=== PATIENT | female | born 1960 | race Caucasian/White ===

== ENCOUNTER 2016-10-12 14:57 | Emergency (ER) | payer OTHER ==
[2016-10-12 15:07] VITALS: TEMP 98.1; BMI 32.1
--- NOTE | 2016-10-12 15:40 | PDOC ---
History of Present Illness - General Chief Complaint: Chest Pain Stated Complaint: LIGHTHEADED, HIGH GLUCOSE Time Seen by Provider: 10/12/16 15:24 History Source: Patient - History of Present Illness Timing/Duration: other (yesterday) Associated Symptoms: denies: fever/chills, nausea/vomiting, shortness of breath , weakness Past History - Past Medical History Allergies/Adverse Reactions: Allergies Allergy/AdvReac Type Severity Reaction Status Date / Time No Known Allergies Allergy Verified 10/12/16 15:07 Home Medications: Ambulatory Orders Albuterol Sulfate Inhaler - [Ventolin HFA Inhaler -] 1 - 2 inh PO Q4H PRN #1 inhaler 04/21/15 Insulin Degludec [Tresiba Flextouch U-100] 24 unit SQ HS 02/17/16 Inhaler, Assist Devices [Space Chamber Plus] 1 each ASDIR #1 spacer 06/15/16 Peak Flow Meter [Assess] 1 each ASDIR #1 each 06/15/16 Aspirin [Aspirin EC] 81 mg PO DAILY 07/06/16 Budesonide/Formeterol Fumarate [SYMBICORT 160/4.5mcg -] 1 puff IH BID 07/06/16 Ezetimibe [Zetia -] 10 mg PO DAILY 07/06/16 Fenofibric Acid [Fibricor] 105 mg PO DAILY 07/06/16 Gabapentin [Neurontin] 300 mg PO BID 07/06/16 Icosapent Ethyl [Vascepa] 2 cap PO BID 07/06/16 Insulin Lispro [Humalog Kwikpen] 8 unit SQ TID 07/06/16 Lipase/Protease/Amylase [Crejayant Dr 36,000 Units Capsule] 2 each PO TID 07/06/16 Magnesium 200 mg PO DAILY PRN 07/06/16 Omeprazole/Sodium Bicarbonate [Omeprazole-Bicarb 40-1,100 Cap] 1 each PO DAILY 07/06/16 Tizanidine HCl 4 mg PO TID PRN 07/06/16 Pregabalin [Lyrica] 1 cap PO DAILY PRN 08/03/16 Nystatin Powder [Nystop Powder -] 1 applic TP BID #30 g 09/05/16 Dolutegravir Sodium [Tivicay] 50 mg PO HS #30 tablet 09/13/16 Emtricitabine/Tenofov Alafenam [Descovy 200-25 mg Tablet] 1 each PO HS #30 tablet 09/13/16 Montelukast Na [Singulair -] 10 mg PO HS #30 tablet 09/13/16 Pravastatin Sodium [Pravachol -] 40 mg PO HS #30 tablet 09/13/16 Lisinopril 5 mg PO HS #30 tablet 09/18/16 Clonazepam [Klonopin] 1 mg PO DAILY #30 tablet MDD 1 10/12/16 Escitalopram Oxalate [Lexapro -] 20 mg PO HS #30 tablet 10/12/16 Mirtazapine [Remeron -] 30 mg PO HS #30 tablet 10/12/16 Zolpidem Tartrate [Ambien] 5 mg PO HS PRN #15 tablet MDD 1 10/12/16 Anemia: No Asthma: Yes Cancer: No Cardiac Disorders: Yes (2 stents) CVA: No COPD: Yes CHF: No Dementia: No Diabetes: Yes GI Disorders: Yes (h. pylori; GERD) Disorders: No HTN: No Hypercholesterolemia: Yes HIV: Yes Liver Disease: No Psychiatric Problems: Yes (ANXIETY.) Seizures: No Thyroid Disease: No - Surgical History Abdominal Surgery: No Appendectomy: No Cardiac Surgery: Yes (PTCA 04/04/15 WITH ONE STENT TO LAD-COMPLETED PLAVIX THERAPY 04/01/16 2 PAVAN) Cholecystectomy: Yes Lung Surgery: No Neurologic Surgery: No Orthopedic Surgery: Yes (Rt Ankle, Rt Wrist, Rt Elbow; left knee 09/14) - Psycho/Social/Smoking Cessation Hx Anxiety: No Suicidal Ideation: No Smoking History: Current every day smoker Have you smoked in the past 12 months: Yes Number of Cigarettes Smoked Daily: 2 If you are a former smoker, when did you quit?: 2 months Cigars Per Day: 0 Information on smoking cessation initiated: No 'Breaking Loose' booklet given: 03/29/15 Hx Alcohol Use: No Drug/Substance Use Hx: No Substance Use Type: None Hx Substance Use Treatment: No Review of Systems - Review of Systems Constitutional: No: Chills, Fever Respiratory: No: Shortness of Breath Cardiac (ROS): Yes: Chest Pain, Lightheadedness ABD/GI: No: Constipated, Diarrhea, Nausea, Vomiting, Abdominal cramping : No: Dysuria Neurological: Yes: Dizziness. No: Headache *Physical Exam - Vital Signs Last Vital Signs Temp Pulse Resp BP Pulse Ox 98.1 F 107 H 20 148/87 99 10/12/16 15:02 10/12/16 15:02 10/12/16 15:02 10/12/16 15:02 10/12/16 15:02 - Physical Exam General Appearance: Yes: Appropriately Dressed. No: Apparent Distress HEENT: positive: Normal Voice Neck: positive: Supple Respiratory/Chest: positive: Lungs Clear, Normal Breath Sounds. negative: Respiratory Distress Cardiovascular: positive: Regular Rate, S1, S2 Gastrointestinal/Abdominal: positive: Soft. negative: Tender Extremity: positive: Normal Inspection Integumentary: positive: Dry, Warm Neurologic: positive: Fully Oriented, Alert, Normal Mood/Affect Heart Score/ECG Review - ECG Intrepretation Comment:: 10/12/16 17:51 Twelve-lead EKG was performed and reviewed by me. There is normal sinus rhythm with a normal rate. The axis is normal. The intervals are normal. There are no ST or T wave abnormalities. Impression: Normal twelve-lead EKG ED Treatment Course - LABORATORY CBC & Chemistry Diagram: 10/12/16 15:36 10/12/16 15:36 Medical Decision Making - Medical Decision Making 10/12/16 15:32 56 yo F, history of insulin-dependent diabetes, hypertension, hypercholesterolemia, CAD with multiple stents, sent in by her PMD to be treated for hyperglycemia. Patient states she had a routine appointment with her doctor this morning and was complaining of chest pain with dizziness, visual changes and polydipsia since yesterday. States she had vague chest pain yesterday that lasted for several seconds and resolved. Has not reoccurred and different from CP prior to her stents. States sugar in PMD's office today was in the 400s and sent to the ED for further management. Patient reports only dizziness at this time. States BS usually in the 200s at home. Only takes insulin for her DM and reports compliance See exam Hyperglycemia -IVF -insulin -labs r/o complications -reassess Atypical CP Resolved yesterday Unlike CP prior to stents No CP/sob currently -ekg and trop x 1 10/12/16 18:31 10/12/16 18:32 Labs unremarkable and final FS 195 s/p meds/IVF. Pt reports feeling better at this time, declined additional IVF and requesting discharge. Will continue to f/ u with her PMD *DC/Admit/Observation/Transfer Diagnosis at time of Disposition: Hyperglycemia, Atypical chest pain - Discharge Dispostion Disposition: HOME Condition at time of disposition: Improved - Patient Instructions Printed Discharge Instructions: DI for Atypical Chest Pain, DI for Hyperglycemia -- Adult Additional Instructions: Please continue taking your antibiotics and follow up with your PMD
[2016-10-12] MEDS: SODIUM CHLORIDE 1,000 ML IV STA ×2 (15:48→18:00)
[2016-10-12] MEDS: INSULIN REGULAR HUMAN 100 UNITS/ML *VIAL SQ ONE (15:55)
--- NOTE | 2016-10-12 15:59 | EKG ---
Test Reason : Blood Pressure : / mmHG Vent. Rate : 094 BPM Atrial Rate : 094 BPM P-R Int : 160 ms QRS Dur : 090 ms QT Int : 376 ms P-R-T Axes : 055 072 052 degrees QTc Int : 470 ms NORMAL SINUS RHYTHM NORMAL ECG WHEN COMPARED WITH ECG OF 20-MAY-2016 19:49, NO SIGNIFICANT CHANGE WAS FOUND Confirmed by YEYO GARZA MD ([id number]) on 10/12/2016 3:59:14 PM Referred By: Confirmed By:YEYO GARZA MD
[2016-10-12 16:13] LABS: BASOPHIL 0.1 % (0-2.0); EOSINOPHIL 0.7 % (0-4.5); MCH 26.7 pg (25.7-33.7); MCHC 32.6 g/dl (32.0-36.0); MEAN CELL VOLUME 81.8 fl (80-96); MEAN PLT VOLUME 9.2 fl (7.5-11.1); NEUTROPHILS 61.5 % (42.8-82.8); PLATELET COUNT 138 K/MM3 (134-434); RDW 16.3 % (11.6-15.6); WHITE BLOOD COUNT 7.6 K/mm3 (4.0-10.0)
[2016-10-12 16:45] LABS: ALBUMIN 3.2 g/dl (3.4-5.0); BILIRUBIN,TOTAL 0.3 mg/dL (0.2-1.0); CALCIUM 8.6 mg/dL (8.5-10.1); COCKROFT - GAULT 65.2375; CREATININE 1.2 mg/dL (0.55-1.02)
--- NOTE | 2016-10-12 17:37 | PDOC ---
[id number] 148/87 99 10/12/16 15:02 10/12/16 15:02 10/12/16 15:02 10/12/16 15:02 10/12/16 15:02 - Physical Exam Comments: 10/12/16 17:37 The patient was examined by [JAX Allen] under my direct supervision. I personally evaluated the patient. I concur with the above findings and the plan of care. ED Treatment Course - LABORATORY CBC & Chemistry Diagram: 10/12/16 15:36 10/12/16 15:36 - ADDITIONAL ORDERS Additional order review: Laboratory Results 10/12/16 15:36 Sodium 133 L Potassium 3.9 Chloride 97 L Carbon Dioxide 24 Anion Gap 12 BUN 13 Creatinine 1.2 H Creat Clearance w eGFR 46.82 Random Glucose 504 H* D Calcium 8.6 Total Bilirubin 0.3 D AST 13 L ALT 22 Alkaline Phosphatase 162 H Total Protein 7.0 Albumin 3.2 L 10/12/16 15:36 RBC 4.64 MCV 81.8 MCHC 32.6 RDW 16.3 H MPV 9.2 Neutrophils % 61.5 Lymphocytes % 31.6 Monocytes % 6.1 Eosinophils % 0.7 Basophils % 0.1 - Medications Given in the ED: ED Medications Discontinued Medications Generic Name Dose Route Start Last Admin Trade Name Freq PRN Reason Stop Dose Admin Sodium Chloride 1,000 mls @ 1,000 mls/hr 10/12/16 15:32 10/12/16 15:48 Normal Saline - IV 10/12/16 16:31 1,000 mls/hr ASDIR STA Administration Insulin Human Regular 10 units 10/12/16 15:48 10/12/16 15:55 Novolin R Vial *For Ivpush Or Iv Drip Only* SQ 10/12/16 15:49 10 units ONCE ONE Administration *DC/Admit/Observation/Transfer Diagnosis at time of Disposition: Hyperglycemia, Atypical chest pain - Discharge Dispostion Disposition: HOME Condition at time of disposition: Improved - Referrals Referrals: Edward Ba MD [Primary Care Provider] - - Patient Instructions Printed Discharge Instructions: DI for Atypical Chest Pain, DI for Hyperglycemia -- Adult Additional Instructions: Please continue taking your antibiotics and follow up with your PMD
[2016-10-12 18:16] LABS: URINE APPEARANCE CLEAR; URINE BILIRUBIN NEGATIVE (NEGATIVE); URINE BLOOD NEGATIVE (NEGATIVE); URINE COLOR STRAW; URINE GLUCOSE (UA) 3+ (NEGATIVE); URINE KETONE NEGATIVE (NEGATIVE); URINE LEUK ESTERASE NEGATIVE (NEGATIVE); URINE NITRITE NEGATIVE (NEGATIVE); URINE PROTEIN NEGATIVE (NEGATIVE); URINE UROBILINOGEN NEGATIVE E.U./dl (0.2-1.0)
[2016-10-12 18:18] LABS: TROPONIN I < 0.02 ng/ml (0.00-0.05)
[2016-10-12 18:38] VITALS: BP 145/80; PULSE 80
== END 2016-10-12 18:38 | disposition home or self-care (01) ==
LOC: JER 14:57
PROC: 3E0337Z Introduction of Electrolytic and Water Balance Substance into Peripheral Vein, Percutaneous Approach (ICD-10-PCS; principal; 2016-10-12)
PROC: 3E013VG Introduction of Insulin into Subcutaneous Tissue, Percutaneous Approach (ICD-10-PCS; 2016-10-12)
DX: E11.65 Type 2 diabetes mellitus with hyperglycemia (principal); Z79.4 Long term (current) use of insulin; R07.89 Other chest pain; I25.10 Atherosclerotic heart disease of native coronary artery without angina pectoris; I10 Essential (primary) hypertension; Z95.5 Presence of coronary angioplasty implant and graft
CPT/HCPCS: 36415; 71010-TC; 80053; 81003; 82009; 82550; 84484; 85025; 93005; 93010; 99283-25

== ENCOUNTER 2016-11-09 02:59 | Observation (INO) | payer OTHER ==
--- NOTE | 2016-11-09 03:03 | PDOC ---
History of Present Illness - General Stated Complaint: CHEST PAIN/ABDOMINAL SPASM Time Seen by Provider: 11/09/16 03:01 History Source: Patient Exam Limitations: No Limitations - History of Present Illness Initial Comments: 11/09/16 03:24 56-year-old female with a history of IN: 2 stents in April 2016, IDDM, hyperlipidemia, hypertension, HIV positive, renal colic biba complaining of midstrnal and mid abdominal pain described as 10/10 dull intermittent discomfort discomfort radiating up her right lateral rib to the right lower back with nausea/vomiting x6 h. the pain is exacerbated on movement and there are no alleviating factors. Patient denies any headache, dizziness, lightheadedness, fever, chills, diarrhea, jaw pain, neck pains, urinary symptoms , extremity numbness or tingling sensation. Presenting Symptoms: Abdominal Pain (RLQ), Back Pain (Right sided lower back) Past History - Travel Traveled outside of the country in the last 30 days: No Close contact w/someone who was outside of country & ill: No - Past Medical History Allergies/Adverse Reactions: Allergies Allergy/AdvReac Type Severity Reaction Status Date / Time No Known Allergies Allergy Verified 11/09/16 03:05 Home Medications: Ambulatory Orders Albuterol Sulfate Inhaler - [Ventolin HFA Inhaler -] 1 - 2 inh PO Q4H PRN #1 inhaler 04/21/15 Insulin Degludec [Tresiba Flextouch U-100] 24 unit SQ HS 02/17/16 Inhaler, Assist Devices [Space Chamber Plus] 1 each ASDIR #1 spacer 06/15/16 Peak Flow Meter [Assess] 1 each ASDIR #1 each 06/15/16 Aspirin [Aspirin EC] 81 mg PO DAILY 07/06/16 Budesonide/Formeterol Fumarate [SYMBICORT 160/4.5mcg -] 1 puff IH BID 07/06/16 Ezetimibe [Zetia -] 10 mg PO DAILY 07/06/16 Fenofibric Acid [Fibricor] 105 mg PO DAILY 07/06/16 Gabapentin [Neurontin] 300 mg PO BID 07/06/16 Icosapent Ethyl [Vascepa] 2 cap PO BID 07/06/16 Insulin Lispro [Humalog Kwikpen] 8 unit SQ TID 07/06/16 Lipase/Protease/Amylase [Creon Dr 36,000 Units Capsule] 2 each PO TID 07/06/16 Magnesium 200 mg PO DAILY PRN 07/06/16 Omeprazole/Sodium Bicarbonate [Omeprazole-Bicarb 40-1,100 Cap] 1 each PO DAILY 07/06/16 Tizanidine HCl 4 mg PO TID PRN 07/06/16 Pregabalin [Lyrica] 1 cap PO DAILY PRN 08/03/16 Nystatin Powder [Nystop Powder -] 1 applic TP BID #30 g 09/05/16 Emtricitabine/Tenofov Alafenam [Descovy 200-25 mg Tablet] 1 each PO HS #30 tablet 09/13/16 Montelukast Na [Singulair -] 10 mg PO HS #30 tablet 09/13/16 Pravastatin Sodium [Pravachol -] 40 mg PO HS #30 tablet 09/13/16 Lisinopril 5 mg PO HS #30 tablet 09/18/16 Clonazepam [Klonopin] 1 mg PO DAILY #30 tablet MDD 1 10/12/16 Escitalopram Oxalate [Lexapro -] 20 mg PO HS #30 tablet 10/12/16 Mirtazapine [Remeron -] 30 mg PO HS #30 tablet 10/12/16 Zolpidem Tartrate [Ambien] 5 mg PO HS PRN #15 tablet MDD 1 10/12/16 Anemia: No Asthma: Yes Cancer: No Cardiac Disorders: Yes (2 stents) CVA: No COPD: Yes CHF: No Dementia: No Diabetes: Yes GI Disorders: Yes (h. pylori; GERD) Disorders: No HTN: No Hypercholesterolemia: Yes HIV: Yes Liver Disease: No Psychiatric Problems: Yes (ANXIETY.) Seizures: No Thyroid Disease: No - Surgical History Abdominal Surgery: No Appendectomy: No Cardiac Surgery: Yes (PTCA 04/04/15 WITH ONE STENT TO LAD-COMPLETED PLAVIX THERAPY 04/01/16 2 PAVAN) Cholecystectomy: Yes Lung Surgery: No Neurologic Surgery: No Orthopedic Surgery: Yes (Rt Ankle, Rt Wrist, Rt Elbow; left knee 09/14) - Psycho/Social/Smoking Cessation Hx Anxiety: No Suicidal Ideation: No Smoking History: Current every day smoker Have you smoked in the past 12 months: Yes Number of Cigarettes Smoked Daily: 2 If you are a former smoker, when did you quit?: 2 months Cigars Per Day: 0 'Breaking Loose' booklet given: 03/29/15 Hx Alcohol Use: No Drug/Substance Use Hx: No Substance Use Type: None Hx Substance Use Treatment: No Cardiac Specific PMH - Complaint Specific PMHX Pacemaker: No Review of Systems - Review of Systems Able to Perform ROS?: Yes Comments:: 11/09/16 03:19 CONSTITUTIONAL: Absent: fever, chills, diaphoresis, generalized weakness, malaise, loss of appetite HEENT: Absent: rhinorrhea, nasal congestion, throat pain, throat swelling, difficulty swallowing, mouth swelling, ear pain, eye pain, visual Changes CARDIOVASCULAR: +CP Absent: loss of consciousness, palpitations, irregular heart rate, peripheral edema RESPIRATORY: Absent: cough, shortness of breath, dyspnea with exertion, orthopnea, wheezing, stridor, hemoptysis GASTROINTESTINAL: +Lower abd pain Absent: abdominal distension, nausea, vomiting, diarrhea, constipation, melena , hematochezia GENITOURINARY: Absent: dysuria, frequency, urgency, hesitancy, hematuria, flank pain, genital pain MUSCULOSKELETAL: Absent: myalgia, arthralgia, joint swelling SKIN: Absent: rash, itching, pallor HEMATOLOGIC/IMMUNOLOGIC: Absent: easy bleeding, easy bruising, lymphadenopathy, frequent infections ENDOCRINE: Absent: unexplained weight gain, unexplained weight loss, heat intolerance, cold intolerance NEUROLOGIC: Absent: headache, focal weakness or paresthesias, dizziness, unsteady gait, seizure, mental status changes, bladder or bowel incontinence PSYCHIATRIC: Absent: anxiety, depression, suicidal or homicidal ideation, hallucinations. 11/09/16 04:52 Is the patient limited Z[place]ian proficient: No *Physical Exam - Vital Signs Last Vital Signs Temp Pulse Resp BP Pulse Ox 97.5 F L 129 H 16 122/89 98 11/09/16 03:05 11/09/16 03:05 11/09/16 03:05 11/09/16 03:05 11/09/16 03:05 - Physical Exam Comments: 11/09/16 03:20 GENERAL: Well developed, well nourished. Awake and alert. No acute distress. HEENT: Normocephalic, atraumatic. PERRLA, EOMI. No conjunctival pallor. Sclera are non- icteric. Moist mucous membranes. Oropharynx is clear. NECK: Supple. Full ROM. No JVD. Carotid pulses 2+ and symmetric, without bruits. No thyromegaly. No lymphadenopathy. CARDIOVASCULAR: Regular rate and rhythm. No murmurs, rubs, or gallops. Distal pulses are 2+ and symmetric. PULMONARY: No evidence of respiratory distress. Lungs clear to auscultation bilaterally. No wheezing, rales or rhonchi. ABDOMINAL: Soft. Non-tender. Non-distended. No rebound or guarding. No organomegaly. Normoactive bowel sounds. MUSCULOSKELETAL Normal range of motion at all joints. No bony deformities or tenderness. No CVA tenderness. EXTREMITIES: No cyanosis. No clubbing. No edema. No calf tenderness. SKIN: Warm and dry. Normal capillary refill. No rashes. No jaundice. NEUROLOGICAL: Alert, awake, appropriate. Cranial nerves 2-12 intact. No deficits to light touch and temperature in face, upper extremities and lower extremities. No motor deficits in the in face, upper extremities and lower extremities. Normoreflexic in the upper and lower extremities. Normal speech. Toes are down- going bilaterally. Gait is normal without ataxia. PSYCHIATRIC: Cooperative. Good eye contact. Appropriate mood and affect. 11/09/16 04:52 Heart Score/ECG Review - History History: Moderately suspicious - Electrocardiogram EKG: Normal - Age Age: >/= 65 - Risk Factors Risk Factors Heart Score: Yes Hx Hypercholesterolemia, Yes Hx Hypertension, Yes Hx Diabetes, Yes Smoking History, Yes Hx Obesity Based on the list above the patient has:: >/=3 risk factors or Hx atherosclerotic disease ED Treatment Course - LABORATORY CBC & Chemistry Diagram: 11/09/16 03:13 11/09/16 03:13 - ADDITIONAL ORDERS Additional order review: Laboratory Results 11/09/16 11/09/16 03:13 03:13 Sodium 138 Potassium 4.0 Chloride 99 Carbon Dioxide 26 Anion Gap 13 BUN 17 D Creatinine 1.2 H D Creat Clearance w eGFR 46.82 Random Glucose 345 H* D Calcium 8.8 Total Bilirubin 0.4 D AST 14 L ALT 21 Alkaline Phosphatase 181 H Creatine Kinase 105 Troponin I < 0.02 Total Protein 7.8 Albumin 3.5 Total Amylase 50 Lipase 210 11/09/16 03:13 RBC 5.09 MCV 81.8 MCHC 31.9 L RDW 15.5 MPV 10.0 Neutrophils % 82.6 D Lymphocytes % 11.1 D Monocytes % 5.4 Eosinophils % 0.6 Basophils % 0.3 - RADIOLOGY Radiology Studies Ordered: Category Date Time Status CHEST PA & LAT [RAD] Stat Radiology 11/09/16 03:06 Taken - Medications Given in the ED: ED Medications Discontinued Medications Generic Name Dose Route Start Last Admin Trade Name Freq PRN Reason Stop Dose Admin Sodium Chloride 1,000 mls @ 1,000 mls/hr 11/09/16 03:49 11/09/16 04:17 Normal Saline - IV 11/09/16 04:48 1,000 mls/hr ASDIR STA Administration Insulin Human Regular 4 units 11/09/16 03:48 11/09/16 03:57 Novolin R Vial *For Ivpush Or Iv Drip Only* IVPUSH 11/09/16 03:49 4 units ONCE ONE Administration Ketorolac Tromethamine 30 mg 11/09/16 03:17 11/09/16 03:21 Toradol Injection - IVPUSH 11/09/16 03:18 30 mg ONCE ONE Administration Metoclopramide HCl 10 mg 11/09/16 03:25 11/09/16 03:34 Reglan Injection - IVPUSH 11/09/16 03:26 10 mg ONCE ONE Administration Ondansetron HCl 4 mg 11/09/16 03:24 11/09/16 04:17 Zofran Injection IVPUSH 11/09/16 03:25 4 mg ONCE ONE Administration *DC/Admit/Observation/Transfer Diagnosis at time of Disposition: Renal colic on right side Chest pain Qualifiers: Chest pain type: intercostal pain Qualified Code(s): R07.82 - Intercostal pain - Discharge Dispostion Condition at time of disposition: Guarded Admit: Yes
[2016-11-09 03:08] VITALS: BMI 33.2
[2016-11-09] MEDS ORDERED: SODIUM CHLORIDE 1,000 ML IV SCH ×2 (03:15→11:15)
[2016-11-09] MEDS ORDERED: KETOROLAC TROMETHAMINE 30 MG/1 ML VIAL IVPUSH ONE (03:17)
[2016-11-09 03:18] LABS: BASOPHIL 0.3 % (0-2.0); EOSINOPHIL 0.6 % (0-4.5); MCH 26.1 pg (25.7-33.7); MCHC 31.9 g/dl (32.0-36.0); MEAN CELL VOLUME 81.8 fl (80-96); NEUTROPHILS 82.6 % (42.8-82.8); PLATELET COUNT 176 K/MM3 (134-434); RDW 15.5 % (11.6-15.6); WHITE BLOOD COUNT 17.2 K/mm3 (4.0-10.0)
[2016-11-09] MEDS ORDERED: KETOROLAC TROMETHAMINE 30 MG/1 ML VIAL ONE (03:18)
[2016-11-09] MEDS ORDERED: ONDANSETRON 4 MG/2 ML VIAL IVPUSH ONE (03:24)
[2016-11-09] MEDS ORDERED: METOCLOPRAMIDE HCL INJECTION 10 MG/2 ML VIAL IVPUSH ONE (03:25)
[2016-11-09] MEDS ORDERED: METOCLOPRAMIDE HCL INJECTION 10 MG/2 ML VIAL ONE (03:31)
[2016-11-09 03:41] LABS: ALBUMIN 3.5 g/dl (3.4-5.0); BILIRUBIN,TOTAL 0.4 mg/dL (0.2-1.0); CALCIUM 8.8 mg/dL (8.5-10.1); COCKROFT - GAULT 67.541; CREATININE 1.2 mg/dL (0.55-1.02); TOT PROT 7.8 g/dl (6.4-8.2)
[2016-11-09 03:46] LABS: AMYLASE 50 U/L (25-115)
[2016-11-09 03:48] LABS: TROPONIN I < 0.02 ng/ml (0.00-0.05)
[2016-11-09] MEDS ORDERED: INSULIN REGULAR HUMAN 100 UNITS/ML *VIAL IVPUSH ONE (03:48)
[2016-11-09] MEDS ORDERED: SODIUM CHLORIDE 1,000 ML IV STA (03:49)
[2016-11-09] MEDS ORDERED: INSULIN REGULAR HUMAN 100 UNITS/ML *VIAL ONE (03:55)
[2016-11-09] MEDS ORDERED: ONDANSETRON 4 MG/2 ML VIAL ONE (04:13)
--- NOTE | 2016-11-09 04:15 | PDOC ---
*Physical Exam - Vital Signs Last Vital Signs Temp Pulse Resp BP Pulse Ox 97.5 F L 129 H 16 122/89 98 11/09/16 03:05 11/09/16 03:05 11/09/16 03:05 11/09/16 03:05 11/09/16 03:05 ED Treatment Course - LABORATORY CBC & Chemistry Diagram: 11/09/16 11:16 11/09/16 11:16 - ADDITIONAL ORDERS Additional order review: Laboratory Results 11/09/16 11/09/16 03:13 03:13 Sodium 138 Potassium 4.0 Chloride 99 Carbon Dioxide 26 Anion Gap 13 BUN 17 D Creatinine 1.2 H D Creat Clearance w eGFR 46.82 Random Glucose 345 H* D Calcium 8.8 Total Bilirubin 0.4 D AST 14 L ALT 21 Alkaline Phosphatase 181 H Creatine Kinase 105 Troponin I < 0.02 Total Protein 7.8 Albumin 3.5 Total Amylase 50 Lipase 210 11/09/16 03:13 RBC 5.09 MCV 81.8 MCHC 31.9 L RDW 15.5 MPV 10.0 Neutrophils % 82.6 D Lymphocytes % 11.1 D Monocytes % 5.4 Eosinophils % 0.6 Basophils % 0.3 - RADIOLOGY Radiology Studies Ordered: Category Date Time Status SPIRAL- RENAL-STONE CT [CT] Stat CT Scan 11/09/16 03:56 Ordered - Medications Given in the ED: ED Medications Discontinued Medications Generic Name Dose Route Start Last Admin Trade Name Freq PRN Reason Stop Dose Admin Insulin Human Regular 4 units 11/09/16 03:48 11/09/16 03:57 Novolin R Vial *For Ivpush Or Iv Drip Only* IVPUSH 11/09/16 03:49 4 units ONCE ONE Administration Ketorolac Tromethamine 30 mg 11/09/16 03:17 11/09/16 03:21 Toradol Injection - IVPUSH 11/09/16 03:18 30 mg ONCE ONE Administration Metoclopramide HCl 10 mg 11/09/16 03:25 11/09/16 03:34 Reglan Injection - IVPUSH 11/09/16 03:26 10 mg ONCE ONE Administration Medical Decision Making - Medical Decision Making 11/09/16 04:13 agree with care from JAX Fregoso Pt presents in moderate distress. c/o cp and bilateral flank pain. Pt pending lab work, and spiral CT scan *DC/Admit/Observation/Transfer Diagnosis at time of Disposition: Chest pain, Renal colic on right side - Discharge Dispostion Disposition: HOME Condition at time of disposition: Improved
[2016-11-09] MEDS ORDERED: TAMSULOSIN HCL 0.4 MG CAP.ER.24H (FP) PO ONE (05:29)
[2016-11-09] MEDS ORDERED: TAMSULOSIN HCL 0.4 MG CAP.ER.24H (FP) ONE (05:46)
--- NOTE | 2016-11-09 07:29 | PN ---
Teaching Attending Note Name of Resident: Anastasia Aburto ATTENDING PHYSICIAN STATEMENT I saw and evaluated the patient. I reviewed the resident's note and discussed the case with the resident. I agree with the resident's findings and plan as documented. SUBJECTIVE: Patient is 56yo female presented with right flank pain. Patient had a CT scan of abdomen and pelvis which was positive for Kidney stones 9mm, non obstructing. no Shortness of breath, no fever or chills. OBJECTIVE: Vital Signs Temperature 97.8 F 11/09/16 05:49 Pulse Rate 96 H 11/09/16 05:49 Respiratory Rate 18 11/09/16 05:49 Blood Pressure 107/61 11/09/16 05:49 O2 Sat by Pulse Oximetry (%) 95 11/09/16 05:49 CBCD WBC 17.2 K/mm3 (4.0-10.0) H D 11/09/16 03:13 RBC 5.09 M/mm3 (3.60-5.2) 11/09/16 03:13 Hgb 13.3 GM/dL (10.7-15.3) 11/09/16 03:13 Hct 41.6 % (32.4-45.2) 11/09/16 03:13 MCV 81.8 fl (80-96) 11/09/16 03:13 MCHC 31.9 g/dl (32.0-36.0) L 11/09/16 03:13 RDW 15.5 % (11.6-15.6) 11/09/16 03:13 Plt Count 176 K/MM3 (134-434) D 11/09/16 03:13 MPV 10.0 fl (7.5-11.1) 11/09/16 03:13 CMP Sodium 138 mmol/L (136-145) 11/09/16 03:13 Potassium 4.0 mmol/L (3.5-5.1) 11/09/16 03:13 Chloride 99 mmol/L (98-107) 11/09/16 03:13 Carbon Dioxide 26 mmol/L (21-32) 11/09/16 03:13 Anion Gap 13 (8-16) 11/09/16 03:13 BUN 17 mg/dL (7-18) D 11/09/16 03:13 Creatinine 1.2 mg/dL (0.55-1.02) H D 11/09/16 03:13 Creat Clearance w eGFR 46.82 (>60) 11/09/16 03:13 Random Glucose 345 mg/dL (74-106) H* D 11/09/16 03:13 Calcium 8.8 mg/dL (8.5-10.1) 11/09/16 03:13 Total Bilirubin 0.4 mg/dL (0.2-1.0) D 11/09/16 03:13 AST 14 U/L (15-37) L 11/09/16 03:13 ALT 21 U/L (12-78) 11/09/16 03:13 Alkaline Phosphatase 181 U/L (45-117) H 11/09/16 03:13 Total Protein 7.8 g/dl (6.4-8.2) 11/09/16 03:13 Albumin 3.5 g/dl (3.4-5.0) 11/09/16 03:13 CARDIAC ENZYMES Creatine Kinase 105 IU/L (26-192) 11/09/16 03:13 Troponin I < 0.02 ng/ml (0.00-0.05) 11/09/16 03:13 Current Medications Generic Name Dose Route Start Last Admin Trade Name Freq PRN Reason Stop Dose Admin Sodium Chloride 1,000 mls @ 150 mls/hr 11/09/16 03:15 11/09/16 03:17 Normal Saline - IV 150 mls/hr ASDIR JENNIFER Administration ASSESSMENT AND PLAN: Patient is a 56-year-old female with a history of [place]: 2 stents in April 2016, IDDM, hyperlipidemia, hypertension, HIV positive, renal colic, presented c/o right flank pain , was 10/10 in ED. with non bilious, non bloody vomitus as per patient at home. Patient denies any headache, dizziness, lightheadedness, fever, chills, diarrhea, jaw pain, neck pains, urinary symptoms, extremity numbness or tingling sensation. # Acute Non obstructing kidney stone 9mm. Patient has no further pain, no further vomiting, s/p IVF, also Urologist consulted will see the patient as an outpatient for possible lithotripsy as an outpatient. CBC was repeated since WBC was elevated , repeat was 7.8 from 17K
--- NOTE | 2016-11-09 11:05 | HP ---
CHIEF COMPLAINT: "abdominal pain" PCP: OFELIA Sethi GI: Doesn't remember the name [employer] Associate: Dr. Fritz Ortho: Doesn't remember the name HISTORY OF PRESENT ILLNESS: Patient is a 56 year old female was brought in via EMS with the chief complaints of severe right sided abdominal pain, nausea and vomiting. According to the patient, she was apparently well until yesterday evening while she suddenly started having the right flank pain at around 2am this morning. Patient reported that prior to the pain, she was packing her stuff and lifted a heavy box and transferred to the other room. Soon after that, the pain started, got worse, 10/10 in intensity, non radiating, colicky in nature associated with nausea and several episodes of vomiting. Vomitus was non bilious, non projectile , didn't contain any blood. She also mentions to have diarrhoea, several episodes, non bloody, watery in consistency. Also mentioned to have chills and rigors but denies fever, sweating. All these symptoms started at the same time. She did not take any medications before coming to the ED. Denies chest pain, sob, cough or palpitations. Bladder habit normal. Denies dysuria, hematuria or any urinary symptoms. Patient says she has a h/o kidney stones twice, last kidney stone she had was 7 years ago for which she had to undergo Lithotripsy. The first time, she passed the kidney stones by drinking plenty of fluids. ER course was notable for: (1) Tachycardic, leukocytosis 17.2; Creatinine 1.2 (2) CT abdomen/Pelvis: 9 mm calculus within the upper pole of the right kidney consistent with a nonobstructing calculus (3) IV fluids, IV Ketorolac Recent Travel: None PAST MEDICAL HISTORY: ID: 2 stents in April 2016, IDDM, hyperlipidemia, hypertension, HIV positive on HAART therapy, renal colic PAST SURGICAL HISTORY: As mentioned above Social History: Smoking:Current active smoker Alcohol:Denies Drugs: Denies Family History: Unknown. Allergies No Known Allergies Allergy (Verified 11/09/16 03:05) HOME MEDICATIONS: Home Medications Medication Instructions Recorded Albuterol Sulfate Inhaler - 1 - 2 inh PO Q4H PRN #1 inhaler 04/21/15 [Ventolin HFA Inhaler -] Insulin Degludec [Tresiba 24 unit SQ HS 02/17/16 Flextouch U-100] Inhaler, Assist Devices [Space 1 each ASDIR #1 spacer 06/15/16 Chamber Plus] Peak Flow Meter [Assess] 1 each ASDIR #1 each 06/15/16 Aspirin [Aspirin EC] 81 mg PO DAILY 07/06/16 Budesonide/Formeterol Fumarate 1 puff IH BID 07/06/16 [SYMBICORT 160/4.5mcg -] Ezetimibe [Zetia -] 10 mg PO DAILY 07/06/16 Fenofibric Acid [Fibricor] 105 mg PO DAILY 07/06/16 Gabapentin [Neurontin] 300 mg PO BID 07/06/16 Icosapent Ethyl [Vascepa] 2 cap PO BID 07/06/16 Insulin Lispro [Humalog Kwikpen] 8 unit SQ TID 07/06/16 Lipase/Protease/Amylase [Creon Dr 2 each PO TID 07/06/16 36,000 Units Capsule] Magnesium 200 mg PO DAILY PRN 07/06/16 Omeprazole/Sodium Bicarbonate 1 each PO DAILY 07/06/16 [Omeprazole-Bicarb 40-1,100 Cap] Tizanidine HCl 4 mg PO TID PRN 07/06/16 Pregabalin [Lyrica] 1 cap PO DAILY PRN 08/03/16 Nystatin Powder [Nystop Powder -] 1 applic TP BID #30 g 09/05/16 Emtricitabine/Tenofov Alafenam 1 each PO HS #30 tablet 09/13/16 [Descovy 200-25 mg Tablet] Montelukast Na [Singulair -] 10 mg PO HS #30 tablet 09/13/16 Pravastatin Sodium [Pravachol -] 40 mg PO HS #30 tablet 09/13/16 Lisinopril 5 mg PO HS #30 tablet 09/18/16 Clonazepam [Klonopin] 1 mg PO DAILY #30 tablet MDD 1 10/12/16 Escitalopram Oxalate [Lexapro -] 20 mg PO HS #30 tablet 10/12/16 Mirtazapine [Remeron -] 30 mg PO HS #30 tablet 10/12/16 Zolpidem Tartrate [Ambien] 5 mg PO HS PRN #15 tablet MDD 1 04/13/17 REVIEW OF SYSTEMS CONSTITUTIONAL: Present: Chills, rigors Absent: fever, diaphoresis, generalized weakness, malaise, loss of appetite, weight change HEENT: Absent: rhinorrhea, nasal congestion, throat pain, throat swelling, difficulty swallowing, mouth swelling, ear pain, eye pain, visual changes CARDIOVASCULAR: Absent: chest pain, syncope, palpitations, irregular heart rate, lightheadedness , peripheral edema RESPIRATORY: Absent: cough, shortness of breath, dyspnea with exertion, orthopnea, wheezing, stridor, hemoptysis GASTROINTESTINAL: Present: abdominal pain, abdominal distension, nausea, vomiting, diarrhea Absent: constipation, melena, hematochezia GENITOURINARY: Absent: dysuria, frequency, urgency, hesitancy, hematuria, flank pain, genital pain MUSCULOSKELETAL: Absent: myalgia, arthralgia, joint swelling, back pain, neck pain SKIN: Absent: rash, itching, pallor HEMATOLOGIC/IMMUNOLOGIC: Absent: easy bleeding, easy bruising, lymphadenopathy, frequent infections ENDOCRINE: Absent: unexplained weight gain, unexplained weight loss, heat intolerance, cold intolerance NEUROLOGIC: Absent: headache, focal weakness or paresthesias, dizziness, unsteady gait, seizure, mental status changes, bladder or bowel incontinence PSYCHIATRIC: Absent: anxiety, depression, suicidal or homicidal ideation, hallucinations. PHYSICAL EXAMINATION Vital Signs - 24 hr 11/09/16 05:49 Temperature 97.8 F Pulse Rate [ 96 H Left] Respiratory 18 Rate Blood Pressure 107/61 [Right Arm] O2 Sat by Pulse 95 Oximetry (%) GENERAL: Moderately obese female, lying in bed comfortably in bed, Awake, alert , and fully oriented, in no acute distress. HEAD: Normal with no signs of trauma. EYES: EOM intact, no pallor or icterus. EARS, NOSE, THROAT: Ears normal. Moist mucous membranes. NECK: Normal range of motion, supple without lymphadenopathy, JVD, or masses. LUNGS: Breath sounds equal, clear to auscultation bilaterally. No wheezes, and no crackles. No accessory muscle use. HEART: Regular rate and rhythm, normal S1 and S2 without murmur, rub or gallop. ABDOMEN: Soft, nontender, not distended, normoactive bowel sounds, no guarding, no rebound, no masses. No hepatomegaly or splenomegaly. MUSCULOSKELETAL: Normal range of motion at all joints. No bony deformities or tenderness. No CVA tenderness. UPPER EXTREMITIES: 2+ pulses, warm, well-perfused. No cyanosis. No clubbing. No peripheral edema. LOWER EXTREMITIES: 2+ pulses, warm, well-perfused. No calf tenderness. No peripheral edema. NEUROLOGICAL: Cranial nerves II-XII intact. Normal speech. Normal gait. PSYCHIATRIC: Cooperative. Good eye contact. Appropriate mood and affect. SKIN: Warm, dry, normal turgor, no rashes or lesions noted, normal capillary refill. CT abdomen/Pelvis 11/09/2016: There is a 9 mm calculus within the upper pole of the right kidney consistent with a nonobstructing calculus. Right nephrolithiasis with no evidence of obstructive uropathy or acute pathology within the abdomen or pelvis. ASSESSMENT/PLAN: Patient is a 56 year old female with significant past medical history of ID: 2 stents in April 2016, IDDM, hyperlipidemia, hypertension, HIV positive on HAART therapy, renal colic was brought in via EMS with the chief complaints of severe right sided abdominal pain, nausea and vomiting was placed in observation in Med-surg with the diagnosis of Renal Colic. # Renal Colic Patient who a h/o kidney stones, came in with symptoms of severe right sided flank pain, nausea and vomiting On arrival, Tachycardic, leukocytosis 17.2; Creatinine 1.2 CT scan of abdomen/pelvis was done, report mentioned as above. In the ED patient was given IV fluids, IV Ketorolac. Patient's pain was relieved. Placed in observation in Med-Surg IV fluids were continued. Patient's abdominal pain resolved completely. Repeat CBC showed normal WBC. Urology consult was requested. Dr. White. Called placed to Dr. Brumfield but he was away. Spoke with Dr Bustamante over the phone. He recommended to discharge the patient since patient was afebrile, WBC was WNL, CT abdomen/Pelvis showed non obstructive calculus and to follow at this clinic. in a week. # BRENDAN-resolved Most likely prerenal Creatinine improved after IV fluids. # Thrombocytopenia Likely dilutional # For H/o ID: 2 stents in April 2016, IDDM, hyperlipidemia, hypertension, HIV positive on HAART therapy, renal colic, home medications were not continued since patient was discharged home within few hours of admission after clinical improvement. Illness, Investigation and Plan of care explained to the patient. She verbalized understanding. Case seen and discussed with Dr. Albarado. Visit type - Emergency Visit Emergency Visit: Yes ED Registration Date: 11/09/16 Care time: The patient presented to the Emergency Department on the above date and was hospitalized for further evaluation of their emergent condition. - New Patient This patient is new to me today: Yes Date on this admission: 11/09/16 - Critical Care Critical Care patient: No
[2016-11-09 11:43] LABS: MCH 26.6 pg (25.7-33.7); MCHC 32.4 g/dl (32.0-36.0); MEAN CELL VOLUME 82.2 fl (80-96); MEAN PLT VOLUME 9.7 fl (7.5-11.1); PLATELET COUNT 118 K/MM3 (134-434); RDW 15.2 % (11.6-15.6); WHITE BLOOD COUNT 6.8 K/mm3 (4.0-10.0)
[2016-11-09 12:02] LABS: ALBUMIN 2.8 g/dl (3.4-5.0); ALK PHOS 140 U/L (45-117); ANION GAP 7 (8-16); BILIRUBIN,TOTAL 0.3 mg/dL (0.2-1.0); CO2 25 mmol/L (21-32); CREATININE 0.9 mg/dL (0.55-1.02); GLUCOSE,RANDOM 233 mg/dL (74-106); SGOT/AST 13 U/L (15-37); SGPT/ALT 17 U/L (12-78); TOT PROT 6.1 g/dl (6.4-8.2)
--- NOTE | 2016-11-09 12:41 | EKG ---
Test Reason : Blood Pressure : / mmHG Vent. Rate : 115 BPM Atrial Rate : 115 BPM P-R Int : 152 ms QRS Dur : 088 ms QT Int : 352 ms P-R-T Axes : 040 088 034 degrees QTc Int : 486 ms SINUS TACHYCARDIA OTHERWISE NORMAL ECG WHEN COMPARED WITH ECG OF 12-OCT-2016 15:11, NO SIGNIFICANT CHANGE WAS FOUND Confirmed by YEYO GARZA MD ([id number]) on 11/09/2016 12:40:55 PM Referred By: Confirmed By:YEYO GARZA MD
[2016-11-09 14:47] LABS: URINE APPEARANCE CLEAR; URINE BILIRUBIN NEGATIVE (NEGATIVE); URINE BLOOD NEGATIVE (NEGATIVE); URINE COLOR LTYELLOW; URINE GLUCOSE (UA) 3+ (NEGATIVE); URINE KETONE NEGATIVE (NEGATIVE); URINE LEUK ESTERASE NEGATIVE (NEGATIVE); URINE NITRITE NEGATIVE (NEGATIVE); URINE PROTEIN NEGATIVE (NEGATIVE); URINE UROBILINOGEN NEGATIVE E.U./dl (0.2-1.0)
[2016-11-09 15:12] VITALS: BP 110/56; PULSE 88; TEMP 98.2
[2016-11-09 15:53] LABS: TROPONIN I < 0.02 ng/ml (0.00-0.05)
--- NOTE | 2016-11-09 17:17 | DS ---
Physical Exam: SUBJECTIVE: Patient seen and examined at bed side. No complaints. Right flank pain resolved. Denies chest pain, sob, cough or palpitations. Bladder habit normal. Denies dysuria, hematuria or any urinary symptoms. OBJECTIVE: Vital Signs Period Temp Pulse Resp BP Sys/Cota Pulse Ox Last 24 Hr 97.8 F-98.2 F 79-100 16-20 106-116/56-69 95-100 PHYSICAL EXAM GENERAL: Moderately obese female, lying in bed comfortably in bed, Awake, alert , and fully oriented, in no acute distress. HEAD: Normal with no signs of trauma. EYES: EOM intact, no pallor or icterus. EARS, NOSE, THROAT: Ears normal. Moist mucous membranes. NECK: Normal range of motion, supple without lymphadenopathy, JVD, or masses. LUNGS: Breath sounds equal, clear to auscultation bilaterally. No wheezes, and no crackles. No accessory muscle use. HEART: Regular rate and rhythm, normal S1 and S2 without murmur, rub or gallop. ABDOMEN: Soft, nontender, not distended, normoactive bowel sounds, no guarding, no rebound, no masses. No hepatomegaly or splenomegaly. MUSCULOSKELETAL: Normal range of motion at all joints. No bony deformities or tenderness. No CVA tenderness. UPPER EXTREMITIES: 2+ pulses, warm, well-perfused. No cyanosis. No clubbing. No peripheral edema. LOWER EXTREMITIES: 2+ pulses, warm, well-perfused. No calf tenderness. No peripheral edema. NEUROLOGICAL: Cranial nerves II-XII intact. Normal speech. Normal gait. PSYCHIATRIC: Cooperative. Good eye contact. Appropriate mood and affect. SKIN: Warm, dry, normal turgor, no rashes or lesions noted, normal capillary refill. LABS Laboratory Results - last 24 hr 11/09/16 11/09/16 11/09/16 11:16 11:16 14:27 WBC 6.8 D RBC 4.43 Hgb 11.8 D Hct 36.4 MCV 82.2 MCHC 32.4 RDW 15.2 Plt Count 118 L D MPV 9.7 Sodium 140 Potassium 4.2 Chloride 108 H Carbon Dioxide 25 Anion Gap 7 L BUN 17 Creatinine 0.9 D Creat Clearance w eGFR > 60 Random Glucose 233 H D Calcium 8.0 L Total Bilirubin 0.3 D AST 13 L ALT 17 Alkaline Phosphatase 140 H D Creatine Kinase 91 Troponin I < 0.02 Total Protein 6.1 L D Albumin 2.8 L Urine Color Ltyellow Urine Appearance Clear Urine pH 5.0 Urine Protein Negative Urine Glucose (UA) 3+ H Urine Ketones Negative Urine Blood Negative Urine Nitrite Negative Urine Bilirubin Negative Urine Urobilinogen Negative Ur Leukocyte Esterase Negative CT abdomen/Pelvis 11/09/2016: There is a 9 mm calculus within the upper pole of the right kidney consistent with a nonobstructing calculus. Right nephrolithiasis with no evidence of obstructive uropathy or acute pathology within the abdomen or pelvis. HOSPITAL COURSE: Date of Admission:11/09/16 Date of Discharge: 11/09/16 Patient is a 56 year old female with significant past medical history of MA: 2 stents in April 2016, IDDM, hyperlipidemia, hypertension, HIV positive on HAART therapy, renal colic was brought in via EMS with the chief complaints of severe right sided abdominal pain, nausea and vomiting was placed in observation in Med-surg with the diagnosis of Renal Colic. On arrival, patient was Tachycardic, leukocytosis 17.2; Creatinine 1.2. CT scan of abdomen/pelvis was done, report mentioned as above. Patient was treated with IV fluids, IV Ketorolac. Patient's pain was relieved. She was placed in observation in Med-Surg. IV fluids were continued. Repeat CBC showed normal WBC. Patient's abdominal pain resolved completely. Patient had an BRENDAN most likely prerenal. Creatinine improved after IV fluids. Thrombocytopenia Likely dilutional Urology consult was requested (Dr. White). Called placed to Dr. Brumfield but he was away. Spoke with Dr Bustamante over the phone. He recommended to discharge the patient since patient was afebrile, WBC was WNL, CT abdomen/Pelvis showed non obstructive calculus and to follow at this clinic. in a week. Patient was instructed to drink plenty of fluids, f/up with urology and PCP in a week and to return to ED if symptoms worsened or if she developed any new symptoms. Illness, Investigation and Plan of care explained to the patient. She verbalized understanding. Case seen and discussed with Dr. Albarado. Minutes to complete discharge: 45 Discharge Summary Reason For Visit: CHEST PAIN RENAL COLIC ON RIGHT SIDE Condition: Improved - Instructions Diet, Activity, Other Instructions: You had right flank pain because of kidney stone. CT abdomen/pelvis showed 9mm of stone in the right kidney non obstructing. You were treated with pain medication and IV fluids. Spoke with Dr. Bustamante over the phone and as per his recommendations, discharging you home with no medication and to follow with him at his office next week. Please drink plenty of liquids. If the pain persists or you develop any new symptoms, please visit to the ED immediately. F/up with Primary doctor in a week. Referrals: Jossie Jimenes NP [Primary Care Provider] - Carlos Bustamante MD [Staff Physician] - Disposition: HOME - Home Medications Comprehensive Discharge Medication List: Ambulatory Orders Albuterol Sulfate Inhaler - [Ventolin HFA Inhaler -] 1 - 2 inh PO Q4H PRN #1 inhaler 04/21/15 Insulin Degludec [Tresiba Flextouch U-100] 24 unit SQ HS 02/17/16 Inhaler, Assist Devices [Space Chamber Plus] 1 each ASDIR #1 spacer 06/15/16 Peak Flow Meter [Assess] 1 each ASDIR #1 each 06/15/16 Aspirin [Aspirin EC] 81 mg PO DAILY 07/06/16 Ezetimibe [Zetia -] 10 mg PO DAILY 07/06/16 Fenofibric Acid [Fibricor] 105 mg PO DAILY 07/06/16 Gabapentin [Neurontin] 300 mg PO BID 07/06/16 Icosapent Ethyl [Vascepa] 2 cap PO BID 07/06/16 Insulin Lispro [Humalog Kwikpen] 8 unit SQ TID 07/06/16 Magnesium 200 mg PO DAILY PRN 07/06/16 Omeprazole/Sodium Bicarbonate [Omeprazole-Bicarb 40-1,100 Cap] 1 each PO DAILY 07/06/16 Tizanidine HCl 4 mg PO TID PRN 07/06/16 Pregabalin [Lyrica] 1 cap PO DAILY 08/03/16 Nystatin Powder [Nystop Powder -] 1 applic TP BID #30 g 09/05/16 Emtricitabine/Tenofov Alafenam [Descovy 200-25 mg Tablet] 1 each PO HS #30 tablet 09/13/16 Pravastatin Sodium [Pravachol -] 40 mg PO HS #30 tablet 09/13/16 Lisinopril 5 mg PO HS #30 tablet 09/18/16 Clonazepam [Klonopin] 1 mg PO DAILY #30 tablet MDD 1 10/12/16 Escitalopram Oxalate [Lexapro -] 20 mg PO HS #30 tablet 10/12/16 Mirtazapine [Remeron -] 30 mg PO HS #30 tablet 10/12/16 Zolpidem Tartrate [Ambien] 5 mg PO HS MDD 1 11/09/16 This patient is new to me today: Yes Date on this admission: 11/09/16 Emergency Visit: Yes ED Registration Date: 11/09/16 Care time: The patient presented to the Emergency Department on the above date and was hospitalized for further evaluation of their emergent condition. Critical Care patient: No - Discharge Referral Referred to [facility] Med P.C.: No
== END 2016-11-09 16:23 | disposition home or self-care (01) ==
LOC: JER 02:59 → JERBED 05:32 → UNDOADMOB 06:00 → J4W 14:25
PROVIDERS: ADMIT Internal Medicine; ATTEND Internal Medicine
PROC: 3E0333Z Introduction of Anti-inflammatory into Peripheral Vein, Percutaneous Approach (ICD-10-PCS; principal; 2016-11-09)
PROC: 3E033GC Introduction of Other Therapeutic Substance into Peripheral Vein, Percutaneous Approach (ICD-10-PCS; 2016-11-09)
PROC: 3E0337Z Introduction of Electrolytic and Water Balance Substance into Peripheral Vein, Percutaneous Approach (ICD-10-PCS; 2016-11-09)
DX: N20.0 Calculus of kidney (principal); R07.82 Intercostal pain; N23 Unspecified renal colic; Z87.442 Personal history of urinary calculi; R00.0 Tachycardia, unspecified; D72.829 Elevated white blood cell count, unspecified; D69.6 Thrombocytopenia, unspecified; I10 Essential (primary) hypertension; I25.2 Old myocardial infarction; E78.5 Hyperlipidemia, unspecified; E11.9 Type 2 diabetes mellitus without complications; Z79.4 Long term (current) use of insulin; Z21 Asymptomatic human immunodeficiency virus [HIV] infection status; J45.909 Unspecified asthma, uncomplicated; J44.9 Chronic obstructive pulmonary disease, unspecified; Z95.5 Presence of coronary angioplasty implant and graft; K21.9 Gastro-esophageal reflux disease without esophagitis; F41.9 Anxiety disorder, unspecified; F17.210 Nicotine dependence, cigarettes, uncomplicated
CPT/HCPCS: 36415; 71020-TC; 74176; 80053; 81003; 82150; 82550; 83690; 84484; 85025; 85027; 87040; 93005; 93010; 99284-25; G0378

== ENCOUNTER 2017-01-15 05:30 | Day surgery (SDC) | payer OTHER ==
[2017-01-12 12:07] VITALS: BMI 33.2
[2017-01-15] MEDS ORDERED: LEVOFLOXACIN 500 MG IVPB 100 ML IVPB ONE (12:32)
[2017-01-15] MEDS ORDERED: PROPOFOL 20 ML ONE (14:12)
[2017-01-15] MEDS ORDERED: MIDAZOLAM HCL 2 MG/2 ML SINGLE DOSE VIAL ONE (14:12)
[2017-01-15] MEDS ORDERED: LIDOCAINE HCL/PF 2% SDV 5ML VIAL ONE (14:13)
[2017-01-15] MEDS ORDERED: LEVOFLOXACIN 500 MG PREMIX BAG IVPB ONE (14:16)
[2017-01-15] MEDS ORDERED: LACTATED RINGERS SOLUTION 1,000 ML IV SCH (15:30)
[2017-01-15] MEDS ORDERED: ACETAMINOPHEN 325 MG TABLET (FP) PO PRN (15:30)
[2017-01-15] MEDS ORDERED: oxyCODONE HCL 5 MG TABLET PO PRN (15:30)
[2017-01-15] MEDS ORDERED: ONDANSETRON 4 MG/2 ML VIAL IVPUSH PRN (15:30)
[2017-01-15 15:46] VITALS: TEMP 97.7
--- NOTE | 2017-01-15 15:58 | OP ---
Operative Note - Note: Operative Date: 01/15/17 Pre-Operative Diagnosis: right renal stone Operation: right eswl Findings: 10mm right renal stone Post-Operative Diagnosis: Same as Pre-op Surgeon: Meng Mane Anesthesia: General
[2017-01-15 16:27] VITALS: BP 90/62; PULSE 96
--- NOTE | 2017-01-16 14:48 | OP ---
DATE OF OPERATION: 01/15/2017 PREOPERATIVE DIAGNOSIS: Right renal stone. POSTOPERATIVE DIAGNOSIS: Right renal stone. PROCEDURE: Right extracorporeal shock wave lithotripsy. ATTENDING: Meng Barillas MD ANESTHESIA: General. DESCRIPTION OF OPERATION: The patient was brought in the operating room, placed in supine position on the operating room table. Ultrasonography and fluoroscopy were performed. A 10-mm right upper pole renal stone was identified. General anesthesia and antibiotics were then administered. Extracorporeal shock wave lithotripsy was then performed; 3000 impulses at 20 joules of power were administered to the stone under real-time ultrasonography and fluoroscopy. A limited result was noted due to the density of the stone. Patient tolerated the procedure very well. No complications were noted. Chivo [id number]
== END 2017-01-15 16:26 | disposition home or self-care (01) ==
LOC: JASU-SURG 05:30
PROVIDERS: ATTEND Urology
PROC: 0TF3XZZ Fragmentation in Right Kidney Pelvis, External Approach (ICD-10-PCS; principal; 2017-01-15 12:45)
DX: N20.0 Calculus of kidney (principal); I10 Essential (primary) hypertension; I25.10 Atherosclerotic heart disease of native coronary artery without angina pectoris; E78.5 Hyperlipidemia, unspecified; E11.9 Type 2 diabetes mellitus without complications; Z21 Asymptomatic human immunodeficiency virus [HIV] infection status; J45.909 Unspecified asthma, uncomplicated; B18.2 Chronic viral hepatitis C; Z95.5 Presence of coronary angioplasty implant and graft; Z96.659 Presence of unspecified artificial knee joint; Z87.891 Personal history of nicotine dependence
CPT/HCPCS: 94760

== ENCOUNTER 2017-04-25 20:53 | Inpatient (IN) | payer OTHER ==
[2017-04-25 21:03] VITALS: BMI 33.6
--- NOTE | 2017-04-25 21:33 | PDOC ---
Attending Attestation - Resident Resident Name: Norbert Washington - ED Attending Attestation I have performed the following: I have examined & evaluated the patient, The case was reviewed & discussed with the resident, I agree w/resident's findings & plan, Exceptions are as noted - HPI HPI: 57 yo F history HTN, DM, CAD s/p stent x2, L TKA presents with 1 week history LLE numbness and pain. Denies fever, chills. No unilateral swelling. No recent trauma. Symptoms are worse with ambulation. - Physicial Exam PE: GENERAL: Awake, alert, and fully oriented, in no acute distress HEAD: No signs of trauma EYES: PERRLA, EOMI, sclera anicteric, conjunctiva clear ENT: Auricles normal inspection, hearing grossly normal, nares patent, oropharynx clear without exudates. Moist mucosa NECK: Normal ROM, supple, no lymphadenopathy, JVD, or masses LUNGS: Breath sounds equal, clear to auscultation bilaterally. No wheezes, and no crackles HEART: Regular rate and rhythm, normal S1 and S2, no murmurs, rubs or gallops ABDOMEN: Soft, nontender, normoactive bowel sounds. No guarding, no rebound. No masses EXTREMITIES: No edema. No clubbing. LLE tender from proximal tibia to the foot. +Varicose veins. LLE cool to palpation compared to R. Limited LLE ROM due to pain. RLE with normal range of motion. NEUROLOGICAL: Cranial nerves II through XII grossly intact. Normal speech. Motor intact. Gait not tested due to pain. SKIN: Warm, Dry, normal turgor, no rashes or lesions noted. - Medical Decision Making Pt with LLE tenderness, dec sensation, cool to palpation. Will obtain venous and arterial dopplers. Patient has recent travel, so DVT is possible, but less likely based on complaint. Arterial occlusion more likely.
--- NOTE | 2017-04-25 21:42 | PDOC ---
History of Present Illness - History of Present Illness Initial Comments: 57 year old female with history of HTN, HLD, CAD (s/p stent x2 in 2015), and left knee replacement (04/01/2017) presenting with left lower leg pain and parasthesias. She admits to first experiencing these symptoms after her TKR but they disappeared then reappeared last Sunday on 04/18/17. She had to fly to [place] that day and the pain worsened on both the flight their and the flight back on the day before presentation here. She also admits to coolness of that foot with some distal color change. Denies fevers, chills, nausea vomiting , diarrhea, and constipation. She hasn't been able to see her orthopedic surgeon because of insurance issues but recently regained her insurance to see her orthopedics. Dr. Goldman performed her surgery. She is a 10 cig per day smoker with 30 pack years. 04/25/17 21:44 <Norbert Washington - Last Filed: 04/25/17 22:47> <Shakira Pope - Last Filed: 04/25/17 23:50> - General Chief Complaint: Pain, Acute Stated Complaint: LFT SIDE NUMBNESS Time Seen by Provider: 04/25/17 21:29 Past History - Past Medical History Anemia: No Asthma: Yes Cancer: No Cardiac Disorders: Yes (2 stents) CVA: No COPD: Yes CHF: No Dementia: No Diabetes: Yes GI Disorders: Yes (h. pylori; GERD) Disorders: No HTN: Yes Hypercholesterolemia: Yes Kidney Stones: Yes Liver Disease: No Psychiatric Problems: Yes (ANXIETY.) Seizures: No Thyroid Disease: No - Surgical History Abdominal Surgery: No Appendectomy: No Cardiac Surgery: Yes (PTCA 04/04/15 WITH ONE STENT TO LAD-COMPLETED PLAVIX THERAPY 04/01/16 2 PAVAN) Cholecystectomy: Yes Lung Surgery: No Neurologic Surgery: No Orthopedic Surgery: Yes (Rt Ankle, Rt Wrist, Rt Elbow; left knee 09/14) - Suicide/Smoking/Psychosocial Hx Smoking History: Current every day smoker Have you smoked in the past 12 months: Yes Number of Cigarettes Smoked Daily: 10 If you are a former smoker, when did you quit?: 2 months Cigars Per Day: 0 Information on smoking cessation initiated: No 'Breaking Loose' booklet given: 11/09/16 Hx Alcohol Use: No Drug/Substance Use Hx: No Substance Use Type: None Hx Substance Use Treatment: No <Norbert Washington - Last Filed: 04/25/17 22:47> <Shakira Poep - Last Filed: 04/25/17 23:50> - Past Medical History Allergies/Adverse Reactions: Allergies Allergy/AdvReac Type Severity Reaction Status Date / Time No Known Allergies Allergy Verified 04/25/17 21:03 Home Medications: Ambulatory Orders Insulin Degludec [Tresiba Flextouch U-100] 35 unit SQ HS 02/17/16 Inhaler, Assist Devices [Space Chamber Plus] 1 each ASDIR #1 spacer 06/15/16 Peak Flow Meter [Assess] 1 each ASDIR #1 each 06/15/16 Aspirin [Aspirin EC] 81 mg PO DAILY 07/06/16 Ezetimibe [Zetia -] 10 mg PO DAILY 07/06/16 Fenofibric Acid [Fibricor] 105 mg PO DAILY 07/06/16 Gabapentin [Neurontin] 300 mg PO BID 07/06/16 Icosapent Ethyl [Vascepa] 2 cap PO BID 07/06/16 Insulin Lispro [Humalog Kwikpen] 15 unit SQ TID 07/06/16 Magnesium 200 mg PO DAILY PRN 07/06/16 Tizanidine HCl 4 mg PO TID PRN 07/06/16 Lancing Device/Lancets [One Touch Delica Lancing Dev] 1 each TID #100 each Guaifenesin [Mucinex -] 600 mg PO BID PRN #14 tablet.er 12/11/16 Nystatin Powder [Nystop Powder -] 1 applic TP BID PRN 01/12/17 Tramadol HCl [Ultram] 50 mg PO DAILY PRN 03/07/17 Albuterol Sulfate Inhaler - [Ventolin HFA Inhaler -] 1 - 2 inh PO Q4H PRN #1 inhaler 04/04/17 Clonazepam [Klonopin] 1 mg PO DAILY #30 tablet MDD 1 04/04/17 Container,Empty [Sharps Container] 1 each ASDIR #1 each 04/04/17 Dolutegravir Sodium [Tivicay] 50 mg PO DAILY #30 tablet 04/04/17 Emtricitabine/Tenofov Alafenam [Descovy 200-25 mg Tablet] 1 each PO HS #30 tablet 04/04/17 Lisinopril 5 mg PO HS #30 tablet 04/04/17 Loratadine [Claritin -] 10 mg PO DAILY PRN #30 tablet 04/04/17 Omeprazole 20 mg PO BID #60 tablet. 04/04/17 Pravastatin Sodium [Pravachol -] 40 mg PO HS #30 tablet 04/04/17 Zolpidem Tartrate [Ambien] 5 mg PO HS #30 tab MDD 1 04/04/17 Escitalopram Oxalate [Lexapro -] 20 mg PO HS #23 tablet 04/10/17 Mirtazapine [Remeron -] 30 mg PO HS #23 tablet 04/10/17 Review of Systems - Review of Systems Constitutional: No: Diaphoresis, Fever HEENTM: No: Blurred Vision Respiratory: No: Cough Cardiac (ROS): No: Chest Pain ABD/GI: No: Constipated, Nausea, Poor Appetite, Vomiting : No: Dysuria, Discharge Integumentary: Yes: Lesions, Pallor <Norbert Washington - Last Filed: 04/25/17 22:47> *Physical Exam - Vital Signs Last Vital Signs Temp Pulse Resp BP Pulse Ox 97.8 F 105 H 16 114/75 99 04/25/17 21:00 04/25/17 21:00 04/25/17 21:00 04/25/17 21:00 04/25/17 21:00 - Physical Exam General Appearance: Yes: Nourished, Appropriately Dressed. No: Apparent Distress HEENT: positive: EOMI, JAYDON, Normal ENT Inspection, Normal Voice Neck: positive: Trachea midline, Normal Thyroid, Supple. negative: Tender, Rigid Respiratory/Chest: positive: Lungs Clear. negative: Chest Tender, Normal Breath Sounds (delayed expiratory phase with upper airway sound transmission. ) , Respiratory Distress Cardiovascular: positive: Regular Rhythm, Regular Rate Gastrointestinal/Abdominal: positive: Normal Bowel Sounds, Flat, Soft. negative : Tender Extremity: positive: Normal Capillary Refill, Tender (Tender and painful LLE from the tibial plateua to the big toe. Not swollen. Some blue coloration to the lateral calcaneous. Pulses hard to appreciat in both exteremities but capillary refil does nto appear delays. Overal the LLE appears cooler than the right.), Coldness. negative: Normal Range of Motion (Difficult to range LLE due to pain.) Integumentary: positive: Cold. negative: Normal Color, Dry, Warm Neurologic: positive: Fully Oriented, Alert, Normal Mood/Affect, Motor Strength 5/5 <Norbert Washington - Last Filed: 04/25/17 22:47> - Vital Signs Last Vital Signs Temp Pulse Resp BP Pulse Ox 97.8 F 105 H 16 114/75 99 04/25/17 21:00 04/25/17 21:00 04/25/17 21:00 04/25/17 21:00 04/25/17 21:00 <Shakira Pope - Last Filed: 04/25/17 23:50> ED Treatment Course - LABORATORY CBC & Chemistry Diagram: 04/25/17 22:07 04/25/17 22:07 <Norbert Washington - Last Filed: 04/25/17 22:47> - LABORATORY CBC & Chemistry Diagram: 04/25/17 22:07 04/25/17 22:07 - ADDITIONAL ORDERS Additional order review: Laboratory Results 04/25/17 04/25/17 04/25/17 22:07 22:07 22:07 PT with INR 11.40 INR 1.01 PTT (Actin FS) 26.4 L Sodium 132 L Potassium 3.9 Chloride 99 Carbon Dioxide 25 Anion Gap 8 BUN 17 Creatinine 1.5 H D Creat Clearance w eGFR 36.05 Random Glucose 413 H* D Calcium 8.1 L Total Bilirubin 0.4 D AST 15 D ALT 21 Alkaline Phosphatase 144 H D Total Protein 6.8 Albumin 2.9 L D 04/25/17 22:07 RBC 4.38 MCV 81.9 MCHC 33.0 RDW 14.8 MPV 10.0 Neutrophils % 55.2 Lymphocytes % 36.7 Monocytes % 5.8 Eosinophils % 1.1 Basophils % 1.2 - Medications Given in the ED: ED Medications Discontinued Medications Generic Name Dose Route Start Last Admin Trade Name Freq PRN Reason Stop Dose Admin Insulin Human Regular 4 units 04/25/17 23:02 04/25/17 23:33 Novolin R Vial *For Ivpush Or Iv Drip Only* IVPUSH 04/25/17 23:03 4 units ONCE ONE Administration Morphine Sulfate 2 mg 04/25/17 21:53 04/25/17 22:21 Morphine Injection - IVPUSH 04/25/17 21:54 2 mg ONCE ONE Administration Sodium Chloride 1,000 ml 04/25/17 22:54 04/25/17 23:33 Normal Saline - IV 04/25/17 22:55 1,000 ml ONCE ONE Administration <Shakira Pope - Last Filed: 04/25/17 23:50> Medical Decision Making - Medical Decision Making 57 year old patient with lle pain and paresthesias most concerning for arterial occlusion given lack of swelling (vs. venous occlusion). Will get LE doppler (venous and arterial) and basic labs in case any anticoagulation needs to be started. Will give morphine 2 for pain. If Dopplers are clear then will attribute pain to post pain exacerbate by altitude related tissue expansion in the setting of recent air travel. 04/25/17 22:54 Patient signed out top DR. Rico in stable condition pending labs and dopplers. <Norbert Washington - Last Filed: 04/25/17 22:47> *DC/Admit/Observation/Transfer <Norbert Washington - Last Filed: 04/25/17 22:47> <Shakira Pope - Last Filed: 04/25/17 23:50> Diagnosis at time of Disposition: Leg pain Qualifiers: Laterality: left Qualified Code(s): M79.605 - Pain in left leg
[2017-04-25] MEDS ORDERED: morphine CARPU-JECT 2 MG/1 ML DISP.SYRIN IVPUSH ONE (21:53)
[2017-04-25 22:11] LABS: BASOPHIL 1.2 % (0-2.0); EOSINOPHIL 1.1 % (0-4.5); MEAN CELL VOLUME 81.9 fl (80-96); NEUTROPHILS 55.2 % (42.8-82.8); PLATELET COUNT 159 K/MM3 (134-434); RDW 14.8 % (11.6-15.6); WHITE BLOOD COUNT 7.3 K/mm3 (4.0-10.0)
[2017-04-25] MEDS ORDERED: morphine CARPU-JECT 2 MG/1 ML DISP.SYRIN ONE (22:16)
[2017-04-25 22:28] LABS: INR 1.01 (0.82-1.09); PROTHROMBIN TIME (PATIENT) 11.4 SEC (9.98-11.88)
[2017-04-25 22:42] LABS: ALBUMIN 2.9 g/dl (3.4-5.0); ALK PHOS 144 U/L (45-117); ANION GAP 8 (8-16); BILIRUBIN,TOTAL 0.4 mg/dL (0.2-1.0); CALCIUM 8.1 mg/dL (8.5-10.1); CO2 25 mmol/L (21-32); CREATININE 1.5 mg/dL (0.55-1.02); SGPT/ALT 21 U/L (12-78); TOT PROT 6.8 g/dl (6.4-8.2)
[2017-04-25 22:52] LABS: GLUCOSE,RANDOM 413 mg/dL (74-106); SGOT/AST 15 U/L (15-37)
[2017-04-25] MEDS ORDERED: SODIUM CHLORIDE 0.9% 1000 ML INFUS.BAG IV ONE (22:54)
--- NOTE | 2017-04-25 22:59 | PDOC ---
*Physical Exam - Vital Signs Last Vital Signs Temp Pulse Resp BP Pulse Ox 97.8 F 105 H 16 114/75 99 04/25/17 21:00 04/25/17 21:00 04/25/17 21:00 04/25/17 21:00 04/25/17 21:00 - Physical Exam General Appearance: Yes: Nourished Respiratory/Chest: positive: Lungs Clear Cardiovascular: positive: S1, S2 Gastrointestinal/Abdominal: positive: Soft Extremity: positive: Other (LLE: non palpable dorsalis pedis pulse, cool, mottled distal phalanges) ED Treatment Course - LABORATORY CBC & Chemistry Diagram: 04/25/17 22:07 04/25/17 22:07 - ADDITIONAL ORDERS Additional order review: Laboratory Results 04/25/17 04/25/17 22:07 22:07 PTT (Actin FS) 26.4 L Sodium 132 L Potassium 3.9 Chloride 99 Carbon Dioxide 25 Anion Gap 8 BUN 17 Creatinine 1.5 H D Creat Clearance w eGFR 36.05 Random Glucose 413 H* D Calcium 8.1 L Total Bilirubin 0.4 D AST 15 D ALT 21 Alkaline Phosphatase 144 H D Total Protein 6.8 Albumin 2.9 L D 04/25/17 22:07 RBC 4.38 MCV 81.9 MCHC 33.0 RDW 14.8 MPV 10.0 Neutrophils % 55.2 Lymphocytes % 36.7 Monocytes % 5.8 Eosinophils % 1.1 Basophils % 1.2 - Medications Given in the ED: ED Medications Discontinued Medications Generic Name Dose Route Start Last Admin Trade Name Freq PRN Reason Stop Dose Admin Morphine Sulfate 2 mg 04/25/17 21:53 04/25/17 22:21 Morphine Injection - IVPUSH 04/25/17 21:54 2 mg ONCE ONE Administration Medical Decision Making - Medical Decision Making 04/25/17 22:58 Patient signed out by Dr. Washington (Resident) and under care of Dr. Pope ( Attending) - patient @ U/S @ time of signout Patient is a 57 y.o. female with a PMH of HTN, IDDM, CAD (s/p stent x2) and L TKA who presents with a c/o of 1 week h/o of LLE numbness and pain. On PE patient has cool LLE, with some discoloration of L phalanges and no palpable dorsalis pedis pulse. Initial Dx of vascular (arterial > venous) occlusion. BS 413, Na 132 (corrected Na 137) no AG; patient administered 1 L IVNS + 4 units regular insulin;confirmed with family patient has a h/o of IDDM; CMP also significant for Cr 1.5 - fluid administered as discussed Reassess and continue to monitor 04/26/17 00:31 Pain control w/Morphine; s/p 1 L IV NS, fingerstick BS 341; patient given 1 L IV NS + 4 additional units insulin; 04/26/17 00:53 Vascular Arterial duplex shows possible occlusion, patient started on Heparin Drip; vascular paged as noted previously, Cr 1.5 - pending recs whether to hydrate --> CTA or CTA 04/26/17 02:25 Dr. Guzmán (Vascular Surgery) - hydrate, repeat Cr and CTA; patient admitted to inpatient medicine hospitalist for further evaluation and CTA, likely tomorrow. *DC/Admit/Observation/Transfer Diagnosis at time of Disposition: Vascular occlusion Leg pain Qualifiers: Laterality: left Qualified Code(s): M79.605 - Pain in left leg - Discharge Dispostion Condition at time of disposition: Fair Admit: Yes
[2017-04-25] MEDS ORDERED: INSULIN REGULAR HUMAN 100 UNITS/ML *VIAL IVPUSH ONE (23:02)
[2017-04-25] MEDS ORDERED: morphine CARPU-JECT 2 MG/1 ML DISP.SYRIN IM ONE (23:50)
[2017-04-26] MEDS ORDERED: morphine CARPU-JECT 2 MG/1 ML DISP.SYRIN ONE
[2017-04-26] MEDS ORDERED: HEPARIN NA (PORCINE) 5,000 UNITS/ML 1ML VIAL IVPUSH PRN (00:51)
[2017-04-26] MEDS ORDERED: INSULIN REGULAR HUMAN 100 UNITS/ML *VIAL SQ ONE (00:51)
[2017-04-26] MEDS ORDERED: SODIUM CHLORIDE 1,000 ML IV STA (00:51)
[2017-04-26] MEDS ORDERED: HEPARIN - 25,000 UNIT in SODIUM CHLORIDE 495 ML IV SCH (01:00)
[2017-04-26] MEDS ORDERED: HEPARIN NA (PORCINE) 5,000 UNITS/ML 1ML VIAL SQ ONE (01:07)
[2017-04-26] MEDS ORDERED: HEPARIN NA (PORCINE) 5,000 UNITS/ML 1ML VIAL ONE ×2 (01:08→18:46)
[2017-04-26] MEDS ORDERED: HEPARIN INFUSION - 500 ML IVPB ONE (01:08)
--- NOTE | 2017-04-26 02:04 | HP ---
CHIEF COMPLAINT: "my leg hurts" PCP: Dr Jimenes HISTORY OF PRESENT ILLNESS: This is a 57 yo F with MPH of HTN, HLD, CAD (s/p stent x2 in 2014), and left knee replacement (04/01/2017), who presents due to LLE numbness and pain x 1w. She also admits to coolness of that foot with some distal color change.She reports chronic severe LLE claudication, with pain starting after taking 3 steps and alleviated by erst. She also reports emma horse pain at night, relieved by hanging her leg of the side of the bed. This week she flew to [place] and noticed worsening pain, now unable to ambulate. She is an active smoker. Her DM is typically poorly controlled sugars often in the 400's, States that she is going to try insulin pump. She denies cp, sob, cough, f/v, n/ v, diarrhea, constipation. Patient foudn to have vascular compromise to LLE on arterial US in ED, started on get qqt ER course was notable for: (1) labs (2)arterial duplex, venous doppler (3)hep drip, ivf, analgesia Recent Travel: as above PAST MEDICAL HISTORY: as above PAST SURGICAL HISTORY: as above Social History: lives at home Smokin pack yr Alcohol: social Drugs: denies Family History: htn, cad, dm Allergies No Known Allergies Allergy (Verified 04/25/17 21:03) HOME MEDICATIONS: Home Medications Medication Instructions Recorded Insulin Degludec [Tresiba 35 unit SQ HS 02/17/16 Flextouch U-100] Inhaler, Assist Devices [Space 1 each ASDIR #1 spacer 06/15/16 Chamber Plus] Peak Flow Meter [Assess] 1 each ASDIR #1 each 06/15/16 Aspirin [Aspirin EC] 81 mg PO DAILY 07/06/16 Ezetimibe [Zetia -] 10 mg PO DAILY 07/06/16 Fenofibric Acid [Fibricor] 105 mg PO DAILY 07/06/16 Gabapentin [Neurontin] 300 mg PO BID 07/06/16 Icosapent Ethyl [Vascepa] 2 cap PO BID 07/06/16 Insulin Lispro [Humalog Kwikpen] 15 unit SQ TID 07/06/16 Magnesium 200 mg PO DAILY PRN 07/06/16 Tizanidine HCl 4 mg PO TID PRN 07/06/16 Lancing Device/Lancets [One Touch 1 each MC TID #100 each 11/22/16 Delica Lancing Dev] Guaifenesin [Mucinex -] 600 mg PO BID PRN #14 tablet.er 12/11/16 Nystatin Powder [Nystop Powder -] 1 applic TP BID PRN 01/12/17 Tramadol HCl [Ultram] 50 mg PO DAILY PRN 03/07/17 Albuterol Sulfate Inhaler - 1 - 2 inh PO Q4H PRN #1 inhaler 04/04/17 [Ventolin HFA Inhaler -] Clonazepam [Klonopin] 1 mg PO DAILY #30 tablet MDD 1 04/04/17 Container,Empty [Sharps Container] 1 each MC ASDIR #1 each 04/04/17 Dolutegravir Sodium [Tivicay] 50 mg PO DAILY #30 tablet 04/04/17 Emtricitabine/Tenofov Alafenam 1 each PO HS #30 tablet 04/04/17 [Descovy 200-25 mg Tablet] Lisinopril 5 mg PO HS #30 tablet 04/04/17 Loratadine [Claritin -] 10 mg PO DAILY PRN #30 tablet 04/04/17 Omeprazole 20 mg PO BID #60 tablet.dr 04/04/17 Pravastatin Sodium [Pravachol -] 40 mg PO HS #30 tablet 04/04/17 Zolpidem Tartrate [Ambien] 5 mg PO HS #30 tab MDD 1 04/04/17 Escitalopram Oxalate [Lexapro -] 20 mg PO HS #23 tablet 04/10/17 Mirtazapine [Remeron -] 30 mg PO HS #23 tablet 04/10/17 REVIEW OF SYSTEMS CONSTITUTIONAL: Absent: fever, chills, loss of appetite, weight change HEENT: Absent: rhinorrhea, nasal congestion, throat pain CARDIOVASCULAR: Absent: chest pain, syncope, palpitations, irregular heart rate, lightheadedness , peripheral edema RESPIRATORY: Absent: cough, shortness of breath, dyspnea with exertion, orthopnea, wheezing, stridor, hemoptysis GASTROINTESTINAL: Absent: abdominal pain, abdominal distension, nausea, vomiting, diarrhea, constipation, melena, hematochezia GENITOURINARY: Absent: dysuria MUSCULOSKELETAL: Absent: back pain, neck pain SKIN: Absent: rash, itching, pallor HEMATOLOGIC/IMMUNOLOGIC: Absent: easy bleeding, easy bruising ENDOCRINE: Absent: unexplained weight gain, unexplained weight loss NEUROLOGIC: Absent: headache, focal weakness or paresthesias PSYCHIATRIC: Absent: anxiety, depression PHYSICAL EXAMINATION Vital Signs - 24 hr 04/25/17 21:00 Temperature 97.8 F Pulse Rate 105 H Respiratory 16 Rate Blood Pressure 114/75 O2 Sat by Pulse 99 Oximetry (%) GENERAL: Awake, alert, and fully oriented, in no mild distress. HEAD: Normal with no signs of trauma. EYES: Pupils equal, round and reactive to light, extraocular movements intact, sclera anicteric, conjunctiva clear. No lid lag. EARS, NOSE, THROAT: Moist mucous membranes. NECK: supple LUNGS: diffuse crackles HEART: Regular rate and rhythm, normal S1 and S2 ABDOMEN: Soft, nontender, not distended, normoactive bowel sounds, no guarding, no rebound, no masses. MUSCULOSKELETAL: No CVA tenderness. UPPER EXTREMITIES: 2+ pulses, warm, well-perfused. No peripheral edema. LOWER EXTREMITIES: LLE: numb from hip down, worse distally, painful from knee down, worse distally, absent dp, pt, + fem, darkening of color in toes, cool toes. no edema RLE: warm, well perfused, no edema, no tenderness. DP not palpable NEUROLOGICAL: Cranial nerves II-XII grossly intact. Normal speech. PSYCHIATRIC: Cooperative. Good eye contact. Appropriate mood and affect. SKIN: Warm, dry other than what is described above Laboratory Results - last 24 hr 04/25/17 04/25/17 04/25/17 22:07 22:07 22:07 WBC 7.3 RBC 4.38 Hgb 11.9 D Hct 35.9 MCV 81.9 MCH 27.0 MCHC 33.0 RDW 14.8 Plt Count 159 MPV 10.0 Neutrophils % 55.2 Lymphocytes % 36.7 Monocytes % 5.8 Eosinophils % 1.1 Basophils % 1.2 PT with INR 11.40 INR 1.01 PTT (Actin FS) Sodium 132 L Potassium 3.9 Chloride 99 Carbon Dioxide 25 Anion Gap 8 BUN 17 Creatinine 1.5 H D Creat Clearance w eGFR 36.05 POC Glucometer Random Glucose 413 H* D Calcium 8.1 L Total Bilirubin 0.4 D AST 15 D ALT 21 Alkaline Phosphatase 144 H D Total Protein 6.8 Albumin 2.9 L D 04/25/17 04/26/17 22:07 00:49 WBC RBC Hgb Hct MCV MCH MCHC RDW Plt Count MPV Neutrophils % Lymphocytes % Monocytes % Eosinophils % Basophils % PT with INR INR PTT (Actin FS) 26.4 L Sodium Potassium Chloride Carbon Dioxide Anion Gap BUN Creatinine Creat Clearance w eGFR POC Glucometer [phone] Random Glucose Calcium Total Bilirubin AST ALT Alkaline Phosphatase Total Protein Albumin ASSESSMENT/PLAN: This is a 57 yo F with MPH of HTN, HLD, CAD (s/p stent x2 in 2014), and left knee replacement (04/01/2017), who presents due to LLE numbness and pain x 1w. LLE limb ischemia in setting of PAD -Arterial doppler appreciated -Hep ggt started -ideally should get CTA prior to intervention but has CKD 3B; prehydrate for now , consider mucinex; may skip CTA and go straight to cath -vascular consult -NPO after midnight IDDM -glucose >400 treated in ED with 4 U insulin -resume home basal insulin -ISS BGM HTN HLD CAD -resume home meds Dispo: admit med nicole Problem List - Problem (1) Leg pain Code(s): M79.606 - PAIN IN LEG, UNSPECIFIED Qualifiers: Laterality: left Qualified Code(s): M79.605 - Pain in left leg; M79.605 - Pain in left leg (2) Hyperglycemia Code(s): R73.9 - HYPERGLYCEMIA, UNSPECIFIED (3) CAD S/P percutaneous coronary angioplasty Code(s): I25.10 - ATHSCL HEART DISEASE OF [place] CORONARY ARTERY W/O ANG PCTRS Z98.61 - CORONARY ANGIOPLASTY STATUS (4) DM w/o complication type II Code(s): E11.9 - TYPE 2 DIABETES MELLITUS WITHOUT COMPLICATIONS (5) Hyperlipemia Code(s): E78.5 - HYPERLIPIDEMIA, UNSPECIFIED Qualifiers: Hyperlipidemia type: Mixed hyperlipidemia Qualified Code(s): E78.2 - Mixed hyperlipidemia; E78.2 - Mixed hyperlipidemia; E78.2 - Mixed hyperlipidemia (6) HTN (hypertension) Code(s): I10 - ESSENTIAL (PRIMARY) HYPERTENSION (7) PAD (peripheral artery disease) Code(s): I73.9 - PERIPHERAL VASCULAR DISEASE, UNSPECIFIED (8) Ischemic leg Code(s): I99.8 - OTHER DISORDER OF CIRCULATORY SYSTEM Visit type - Emergency Visit Emergency Visit: Yes Care time: The patient presented to the Emergency Department on the above date and was hospitalized for further evaluation of their emergent condition. - New Patient This patient is new to me today: Yes Date on this admission: 04/26/17 - Critical Care Critical Care patient: No
[2017-04-26] MEDS ORDERED: ACETAMINOPHEN 1000 MG/100 ML VIAL (NON FORMULARY) IVPB PRN ×2 (02:49→19:33)
[2017-04-26] MEDS ORDERED: morphine CARPU-JECT 2 MG/1 ML DISP.SYRIN IVPUSH PRN ×2 (02:50→19:33)
[2017-04-26] MEDS ORDERED: LORATADINE 10 MG TABLET PO PRN ×2 (02:54→19:33)
[2017-04-26] MEDS ORDERED: PATIENT'S OWN MEDICATION (NON-FORMULARY) (Tizanidine Hcl [Tizanidine Hcl] 4 MG) PO PRN ×2 (02:54→19:33)
[2017-04-26] MEDS ORDERED: NYSTATIN POWDER 100,000 UNITS/GM - 15 GM TOPICAL POWDER TP PRN ×2 (02:54→19:33)
[2017-04-26] MEDS ORDERED: MAGNESIUM OXIDE 400 MG TABLET (FP) PO PRN ×2 (02:54→19:33)
[2017-04-26] MEDS ORDERED: SODIUM CHLORIDE 1,000 ML IV SCH (03:00)
[2017-04-26 04:38] LABS: ANION GAP 9 (8-16); CALCIUM 7.3 mg/dL (8.5-10.1); CO2 22 mmol/L (21-32); CREATININE 1.1 mg/dL (0.55-1.02)
[2017-04-26 04:42] LABS: GLUCOSE,RANDOM 304 mg/dL (74-106)
[2017-04-26] MEDS ORDERED: INSULIN REGULAR HUMAN 100 UNITS/ML *VIAL IVPUSH ONE (04:44)
[2017-04-26] MEDS ORDERED: SODIUM CHLORIDE 0.9% 500 ML INFUS.BAG IV ONE (04:45)
--- NOTE | 2017-04-26 04:46 | HP ---
CHIEF COMPLAINT: LLE pain and parasthesias PCP: Jossie Jimenes HISTORY OF PRESENT ILLNESS: 57F w/ hx of HTN, HLD, CAD (s/p stent x2 in 2014), DMT2, HIV, asthma, and H. pylori who presents with LLE pain and parasthesias for 1 week. Pt reports that her symptoms initially started after her TKR, which then resolved, and returned on 04/18/17. Her symptoms have continued since then. She states that the pain is worse on ambulation causing her to limp and favor her other leg, 04/10 in severity, and accompanied by numbness. She denies fevers, chills, chest pain, SOB, abdominal pain, n/v/d/c. ER course was notable for: (1) tachycardia (2) hyponatremia, hyperglycemia, BRENDAN (3) arterial duplex showing possible ischemia Recent Travel: PAST MEDICAL HISTORY: [place], HLD, CAD (s/p stent x2 in 2014), DMT2, HIV, asthma, and H. pylori PAST SURGICAL HISTORY: L knee replacement, cholecystectomy, tubal ligation, right ankle surgery, right elbow surgery Social History: Smokin pack year hx Alcohol: none Drugs: none Family History: Allergies No Known Allergies Allergy (Verified 04/25/17 21:03) HOME MEDICATIONS: Home Medications Medication Instructions Recorded Insulin Degludec [Tresiba 35 unit SQ HS 02/17/16 Flextouch U-100] Inhaler, Assist Devices [Space 1 each ASDIR #1 spacer 06/15/16 Chamber Plus] Peak Flow Meter [Assess] 1 each ASDIR #1 each 06/15/16 Aspirin [Aspirin EC] 81 mg PO DAILY 07/06/16 Ezetimibe [Zetia -] 10 mg PO DAILY 07/06/16 Fenofibric Acid [Fibricor] 105 mg PO DAILY 07/06/16 Gabapentin [Neurontin] 300 mg PO BID 07/06/16 Icosapent Ethyl [Vascepa] 2 cap PO BID 07/06/16 Insulin Lispro [Humalog Kwikpen] 15 unit SQ TID 07/06/16 Magnesium 200 mg PO DAILY PRN 07/06/16 Tizanidine HCl 4 mg PO TID PRN 07/06/16 Lancing Device/Lancets [One Touch 1 each MC TID #100 each 11/22/16 Delica Lancing Dev] Guaifenesin [Mucinex -] 600 mg PO BID PRN #14 tablet.er 12/11/16 Nystatin Powder [Nystop Powder -] 1 applic TP BID PRN 01/12/17 Tramadol HCl [Ultram] 50 mg PO DAILY PRN 03/07/17 Albuterol Sulfate Inhaler - 1 - 2 inh PO Q4H PRN #1 inhaler 04/04/17 [Ventolin HFA Inhaler -] Clonazepam [Klonopin] 1 mg PO DAILY #30 tablet MDD 1 04/04/17 Container,Empty [Sharps Container] 1 each ASDIR #1 each 04/04/17 Dolutegravir Sodium [Tivicay] 50 mg PO DAILY #30 tablet 04/04/17 Emtricitabine/Tenofov Alafenam 1 each PO HS #30 tablet 04/04/17 [Descovy 200-25 mg Tablet] Lisinopril 5 mg PO HS #30 tablet 04/04/17 Loratadine [Claritin -] 10 mg PO DAILY PRN #30 tablet 04/04/17 Omeprazole 20 mg PO BID #60 tablet. 04/04/17 Pravastatin Sodium [Pravachol -] 40 mg PO HS #30 tablet 04/04/17 Zolpidem Tartrate [Ambien] 5 mg PO HS #30 tab MDD 1 04/04/17 Escitalopram Oxalate [Lexapro -] 20 mg PO HS #23 tablet 04/10/17 Mirtazapine [Remeron -] 30 mg PO HS #23 tablet 04/10/17 REVIEW OF SYSTEMS CONSTITUTIONAL: Absent: fever, chills, diaphoresis, generalized weakness, malaise, loss of appetite, weight change HEENT: Absent: rhinorrhea, nasal congestion, throat pain, throat swelling, difficulty swallowing, mouth swelling, ear pain, eye pain, visual changes CARDIOVASCULAR: Absent: chest pain, syncope, palpitations, irregular heart rate, lightheadedness , peripheral edema RESPIRATORY: Absent: cough, shortness of breath, dyspnea with exertion, orthopnea, wheezing, stridor, hemoptysis GASTROINTESTINAL: Absent: abdominal pain, abdominal distension, nausea, vomiting, diarrhea, constipation, melena, hematochezia GENITOURINARY: Absent: dysuria, frequency, urgency, hesitancy, hematuria, flank pain, genital pain MUSCULOSKELETAL: Absent: myalgia, arthralgia, joint swelling, back pain, neck pain Present: LLE pain SKIN: Absent: rash, itching, pallor HEMATOLOGIC/IMMUNOLOGIC: Absent: easy bleeding, easy bruising, lymphadenopathy, frequent infections ENDOCRINE: Absent: unexplained weight gain, unexplained weight loss, heat intolerance, cold intolerance NEUROLOGIC: Absent: headache, focal weakness, dizziness, unsteady gait, seizure, mental status changes, bladder or bowel incontinence Present: paresthesias in LLE PSYCHIATRIC: Absent: anxiety, depression, suicidal or homicidal ideation, hallucinations. PHYSICAL EXAMINATION Vital Signs - 24 hr 04/25/17 21:00 Temperature 97.8 F Pulse Rate 105 H Respiratory 16 Rate Blood Pressure 114/75 O2 Sat by Pulse 99 Oximetry (%) GENERAL: Awake, alert, and fully oriented, in no acute distress. HEENT: NC/AT NECK: Normal range of motion, supple without lymphadenopathy, JVD, or masses. LUNGS: Breath sounds equal, clear to auscultation bilaterally. No wheezes, and no crackles. No accessory muscle use. HEART: Regular rate and rhythm, normal S1 and S2 without murmur, rub or gallop. ABDOMEN: Soft, nontender, not distended, normoactive bowel sounds, no guarding, no rebound, no masses. No hepatomegaly or splenomegaly. MSK: LLE is slightly cool to touch from knee down, non-erythematous, same size as RLE, tender to palpation, DP and PT pulses unable to be palpated or dopplered. decreased sensory function to touch on LLE compared to RLE NEUROLOGICAL: Cranial nerves II-XII intact. Normal speech PSYCHIATRIC: Cooperative. Good eye contact. Appropriate mood and affect. SKIN: Warm, dry, normal turgor, no rashes or lesions noted, normal capillary refill. Laboratory Results - last 24 hr 04/25/17 04/25/17 04/25/17 22:07 22:07 22:07 WBC 7.3 RBC 4.38 Hgb 11.9 D Hct 35.9 MCV 81.9 MCH 27.0 MCHC 33.0 RDW 14.8 Plt Count 159 MPV 10.0 Neutrophils % 55.2 Lymphocytes % 36.7 Monocytes % 5.8 Eosinophils % 1.1 Basophils % 1.2 PT with INR 11.40 INR 1.01 PTT (Actin FS) Sodium 132 L Potassium 3.9 Chloride 99 Carbon Dioxide 25 Anion Gap 8 BUN 17 Creatinine 1.5 H D Creat Clearance w eGFR 36.05 POC Glucometer Random Glucose 413 H* D Calcium 8.1 L Total Bilirubin 0.4 D AST 15 D ALT 21 Alkaline Phosphatase 144 H D Total Protein 6.8 Albumin 2.9 L D 04/25/17 04/26/17 22:07 00:49 WBC RBC Hgb Hct MCV MCH MCHC RDW Plt Count MPV Neutrophils % Lymphocytes % Monocytes % Eosinophils % Basophils % PT with INR INR PTT (Actin FS) 26.4 L Sodium Potassium Chloride Carbon Dioxide Anion Gap BUN Creatinine Creat Clearance w eGFR POC Glucometer [phone] Random Glucose Calcium Total Bilirubin AST ALT Alkaline Phosphatase Total Protein Albumin LLE duplex: no DVT. L popliteal artery biphasic waveforms with dampened peak systolic velocity. ASSESSMENT/PLAN: 57F w/ hx of HTN, HLD, CAD (s/p stent x2 in 2014), DMT2, HIV, asthma, and H. pylori who presents with acute LLE pain and parasthesias, found o have tachycardia, no palpable or dopplerable pulses, hyponatremia, hyperglycemia, BRENDAN , and arterial duplex findings of ischemia, admitted for LLE ischemia 2/2 worsening PAD. #LLE pain -likely 2/2 worsening PAD -vascular on board- Dr. Guzmán. appreciate recs -pain control with morphine and APAP -heparin -f/u CTA of LLE #tachycardia -likely 2/2 pain -monitor #BRENDAN -creatinine of 1.5 -decreased to 1.1 after 2L of NS -continue to trend #hyponatremia -Na of 132 -increased to 138 after 2L of NS -monitor #hyperglycemia -BGM achs -ISS and continue home lispro and insulin tresiba -continue gabapentin for diabetic neuropathy #elevated ALP -trend for now #HTN -lisinopril held given creatinine of 1.5 #HLD -continue pravastatin #CAD -ASA held for surgery #HIV -continue tivicay and descovy #asthma -duonebs q4h PRN #GI ulcers -continue omeprazole #FEN/ppx -NS @ 125cc/hr -electrolytes wnl -NPO for surgery -omeprazole -heparin and SCDs -confirm home meds with patient. She stated that she did not bring in her list of meds, and does not remember them all. -Mir Zelaya MD PGY1 Visit type - Emergency Visit Emergency Visit: Yes Care time: The patient presented to the Emergency Department on the above date and was hospitalized for further evaluation of their emergent condition. - New Patient This patient is new to me today: Yes Date on this admission: 04/26/17 - Critical Care Critical Care patient: No
[2017-04-26] MEDS ORDERED: ALBUTEROL SO4 2.5/IPRATROPIUM 0.5 INH SOL 3 ML VIAL.NEB. NEB PRN ×2 (04:48→19:33)
--- NOTE | 2017-04-26 06:13 | PN ---
Teaching Attending Note Name of Resident: Mir Zelaya ATTENDING PHYSICIAN STATEMENT I saw and evaluated the patient. I reviewed the resident's note and discussed the case with the resident. I agree with the resident's findings and plan as documented. SUBJECTIVE: 57 yo reports 1 week history of constant progressing LLE pain and chronic claudication . Dopplers in ED suggestive of arterial occlusion PMH HTN HLD CAD LKR Venous insufficiency Smoking OBJECTIVE: Vital Signs Temperature 97.9 F 04/26/17 04:05 Pulse Rate 83 04/26/17 04:05 Respiratory Rate 17 04/26/17 04:05 Blood Pressure 93/63 04/26/17 04:05 O2 Sat by Pulse Oximetry (%) 97 04/26/17 04:05 LLE: absent dp, pt, + fem, darkening of color in toes, cool toes. no edema RLE: warm, well perfused, no edema, no tenderness. DP not palpable CBC, BMP 04/25/17 22:07 04/26/17 04:00 LLE duplex: no DVT. L popliteal artery biphasic waveforms with dampened peak systolic velocity. ASSESSMENT AND PLAN: 1. Suspected L popliteal arterial occlusion - heparin drip - vascular checks - pain control - vascular surgery evaluation for angiogram - IVF 2. Uncontrolled DM - start long acting insulin and add SS high dose 3. Renal insufficiency - possibly chronic dm nephropathy - IVF - repeat BMP
[2017-04-26] MEDS ORDERED: FENOFIBRIC ACID 135 MG CAP PO SCH (07:00)
[2017-04-26 07:50] LABS: BASOPHIL 0.5 % (0-2.0); EOSINOPHIL 1.5 % (0-4.5); MCH 26.9 pg (25.7-33.7); MCHC 32.7 g/dl (32.0-36.0); MEAN CELL VOLUME 82.4 fl (80-96); MEAN PLT VOLUME 10.3 fl (7.5-11.1); NEUTROPHILS 43.3 % (42.8-82.8); PLATELET COUNT 145 K/MM3 (134-434); RDW 15.1 % (11.6-15.6); WHITE BLOOD COUNT 5.9 K/mm3 (4.0-10.0)
[2017-04-26 08:36] LABS: ALBUMIN 2.5 g/dl (3.4-5.0); ANION GAP 7 (8-16); CALCIUM 7.6 mg/dL (8.5-10.1); CO2 25 mmol/L (21-32); GLUCOSE,RANDOM 256 mg/dL (74-106); MAGNESIUM 1.8 mg/dL (1.8-2.4)
[2017-04-26 08:39] LABS: ALK PHOS 130 U/L (45-117); BILIRUBIN,TOTAL 0.4 mg/dL (0.2-1.0); PHOSPHOROUS 2.3 mg/dL (2.5-4.9); SGOT/AST 14 U/L (15-37); SGPT/ALT 17 U/L (12-78); TOT PROT 5.8 g/dl (6.4-8.2)
[2017-04-26 08:42] LABS: INR 1.06 (0.82-1.09)
[2017-04-26 08:45] LABS: ACTIVATED PTT 55.8 SECONDS (26.9-34.4)
[2017-04-26] MEDS ORDERED: INSULIN REGULAR HUMAN 100 UNITS/ML *VIAL ONE ×2 (09:16→13:12)
[2017-04-26] MEDS: INSULIN SLIDING SCALE (NOVOLOG) 1 VIAL SQ SCH ×4 (09:20→22:05)
[2017-04-26] MEDS ORDERED: DOLUTEGRAVIR SODIUM 50 MG TABLET PO SCH (10:00)
[2017-04-26] MEDS ORDERED: ICOSAPENT ETHYL PO SCH ×2 (10:00→22:00)
[2017-04-26] MEDS ORDERED: GABAPENTIN 300 MG CAPSULE (FP) PO SCH (10:00)
[2017-04-26] MEDS ORDERED: EZETIMIBE 10 MG TABLET (FP) PO SCH (10:00)
[2017-04-26] MEDS ORDERED: PANTOPRAZOLE 20 MG TABLET (FP) PO SCH (10:00)
--- NOTE | 2017-04-26 10:29 | CONSULT ---
Consult - Past Medical History Cardio/Vascular: Yes: Hyperlipdemia Pulmonary: Yes: Asthma Hepatobiliary: Yes: Cholelithiasis ...LMP: 09/30/09 Infectious Disease: Yes: HIV Endocrine: Yes: Diabetes Mellitus - Past Surgical History Past Surgical History: Yes: Cholecystectomy - Alcohol/Substance Use Hx Alcohol Use: No - Smoking History Smoking history: Current every day smoker Have you smoked in the past 12 months: Yes Aproximately how many cigarettes per day: 10 If you are a former smoker, when did you quit?: 2 months - Social History ADL: Independent History of Recent Travel: No Home Medications - Allergies Allergies/Adverse Reactions: Allergies Allergy/AdvReac Type Severity Reaction Status Date / Time No Known Allergies Allergy Verified 04/25/17 21:03 - Home Medications Home Medications: Ambulatory Orders Insulin Degludec [Tresiba Flextouch U-100] 35 unit SQ HS 02/17/16 Inhaler, Assist Devices [Space Chamber Plus] 1 each ASDIR #1 spacer 06/15/16 Peak Flow Meter [Assess] 1 each ASDIR #1 each 06/15/16 Aspirin [Aspirin EC] 81 mg PO DAILY 07/06/16 Ezetimibe [Zetia -] 10 mg PO DAILY 07/06/16 Fenofibric Acid [Fibricor] 105 mg PO DAILY 07/06/16 Gabapentin [Neurontin] 300 mg PO BID 07/06/16 Icosapent Ethyl [Vascepa] 2 cap PO BID 07/06/16 Insulin Lispro [Humalog Kwikpen] 15 unit SQ TID 07/06/16 Magnesium 200 mg PO DAILY PRN 07/06/16 Tizanidine HCl 4 mg PO TID PRN 07/06/16 Lancing Device/Lancets [One Touch Delica Lancing Dev] 1 each MC TID #100 each Guaifenesin [Mucinex -] 600 mg PO BID PRN #14 tablet.er 12/11/16 Nystatin Powder [Nystop Powder -] 1 applic TP BID PRN 01/12/17 Tramadol HCl [Ultram] 50 mg PO DAILY PRN 03/07/17 Albuterol Sulfate Inhaler - [Ventolin HFA Inhaler -] 1 - 2 inh PO Q4H PRN #1 inhaler 04/04/17 Clonazepam [Klonopin] 1 mg PO DAILY #30 tablet MDD 1 04/04/17 Container,Empty [Sharps Container] 1 each ASDIR #1 each 04/04/17 Dolutegravir Sodium [Tivicay] 50 mg PO DAILY #30 tablet 04/04/17 Emtricitabine/Tenofov Alafenam [Descovy 200-25 mg Tablet] 1 each PO HS #30 tablet 04/04/17 Lisinopril 5 mg PO HS #30 tablet 04/04/17 Loratadine [Claritin -] 10 mg PO DAILY PRN #30 tablet 04/04/17 Omeprazole 20 mg PO BID #60 tablet. 04/04/17 Pravastatin Sodium [Pravachol -] 40 mg PO HS #30 tablet 04/04/17 Zolpidem Tartrate [Ambien] 5 mg PO HS #30 tab MDD 1 04/04/17 Escitalopram Oxalate [Lexapro -] 20 mg PO HS #23 tablet 04/10/17 Mirtazapine [Remeron -] 30 mg PO HS #23 tablet 04/10/17 Family Disease History - Family Disease History Family Disease History: Heart Disease: Grandparent, Father Physical Exam Vital Signs: Vital Signs Temperature 97.7 F 04/26/17 06:39 Pulse Rate 74 04/26/17 06:39 Respiratory Rate 18 04/26/17 06:39 Blood Pressure 95/61 04/26/17 06:39 O2 Sat by Pulse Oximetry (%) 97 04/26/17 06:39 Labs: CBC, BMP 04/26/17 06:40 04/26/17 06:40 Assessment/Plan Vascular Surgery 57 year old female with history of HTN, HLD, CAD (s/p stent x2 in 2014), and left knee replacement (04/01/2017) presenting with left lower leg pain and parasthesias. She admits to first experiencing these symptoms after her TKR but they disappeared then reappeared last Sunday on 04/18/17. She had to fly to [place] that day and the pain worsened on both the flight their and the flight back on the day before presentation here. She also admits to coolness of that foot with some distal color change. Denies fevers, chills, nausea vomiting , diarrhea, and constipation. She hasn't been able to see her orthopedic surgeon because of insurance issues but recently regained her insurance to see her orthopedics. Dr. Goldman performed her surgery. She is a 10 cig per day smoker with 30 pack years. 04/25/17 21:44 <Norbert [place] - Last Filed: 04/25/17 22:47> <Shakira Pope - Last Filed: 04/25/17 23:50> - General Chief Complaint: Pain, Acute Stated Complaint: LFT SIDE NUMBNESS Time Seen by Provider: 04/25/17 21:29 Past History - Past Medical History Anemia: No Asthma: Yes Cancer: No Cardiac Disorders: Yes (2 stents) CVA: No COPD: Yes CHF: No Dementia: No Diabetes: Yes GI Disorders: Yes (h. pylori; GERD) Disorders: No HTN: Yes Hypercholesterolemia: Yes Kidney Stones: Yes Liver Disease: No Psychiatric Problems: Yes (ANXIETY.) Seizures: No Thyroid Disease: No - Surgical History Abdominal Surgery: No Appendectomy: No Cardiac Surgery: Yes (PTCA 04/04/15 WITH ONE STENT TO LAD-COMPLETED PLAVIX THERAPY 04/01/16 2 PAVAN) Cholecystectomy: Yes Lung Surgery: No Neurologic Surgery: No Orthopedic Surgery: Yes (Rt Ankle, Rt Wrist, Rt Elbow; left knee 09/14) - Suicide/Smoking/Psychosocial Hx Smoking History: Current every day smoker Have you smoked in the past 12 months: Yes Number of Cigarettes Smoked Daily: 10 If you are a former smoker, when did you quit?: 2 months Cigars Per Day: 0 Information on smoking cessation initiated: No 'Breaking Loose' booklet given: 11/09/16 Hx Alcohol Use: No Drug/Substance Use Hx: No Substance Use Type: None Hx Substance Use Treatment: No <Norbert [place] - Last Filed: 04/25/17 22:47> <Shakira Pope - Last Filed: 04/25/17 23:50> - Past Medical History Allergies/Adverse Reactions: Allergies Allergy/AdvReac Type Severity Reaction Status Date / Time No Known Allergies Allergy Verified 04/25/17 21:03 Home Medications: Ambulatory Orders Insulin Degludec [Tresiba Flextouch U-100] 35 unit SQ HS 02/17/16 Inhaler, Assist Devices [Space Chamber Plus] 1 each ASDIR #1 spacer 06/15/16 Peak Flow Meter [Assess] 1 each ASDIR #1 each 06/15/16 Aspirin [Aspirin EC] 81 mg PO DAILY 07/06/16 Ezetimibe [Zetia -] 10 mg PO DAILY 07/06/16 Fenofibric Acid [Fibricor] 105 mg PO DAILY 07/06/16 Gabapentin [Neurontin] 300 mg PO BID 07/06/16 Icosapent Ethyl [Vascepa] 2 cap PO BID 07/06/16 Insulin Lispro [Humalog Kwikpen] 15 unit SQ TID 07/06/16 Magnesium 200 mg PO DAILY PRN 07/06/16 Tizanidine HCl 4 mg PO TID PRN 07/06/16 Lancing Device/Lancets [One Touch Delica Lancing Dev] 1 each TID #100 each Guaifenesin [Mucinex -] 600 mg PO BID PRN #14 tablet.er 12/11/16 Nystatin Powder [Nystop Powder -] 1 applic TP BID PRN 01/12/17 Tramadol HCl [Ultram] 50 mg PO DAILY PRN 03/07/17 Albuterol Sulfate Inhaler - [Ventolin HFA Inhaler -] 1 - 2 inh PO Q4H PRN #1 inhaler 04/04/17 Clonazepam [Klonopin] 1 mg PO DAILY #30 tablet MDD 1 04/04/17 Container,Empty [Sharps Container] 1 each ASDIR #1 each 04/04/17 Dolutegravir Sodium [Tivicay] 50 mg PO DAILY #30 tablet 04/04/17 Emtricitabine/Tenofov Alafenam [Descovy 200-25 mg Tablet] 1 each PO HS #30 tablet 04/04/17 Lisinopril 5 mg PO HS #30 tablet 04/04/17 Loratadine [Claritin -] 10 mg PO DAILY PRN #30 tablet 04/04/17 Omeprazole 20 mg PO BID #60 tablet.dr 04/04/17 Pravastatin Sodium [Pravachol -] 40 mg PO HS #30 tablet 04/04/17 Zolpidem Tartrate [Ambien] 5 mg PO HS #30 tab MDD 1 04/04/17 Escitalopram Oxalate [Lexapro -] 20 mg PO HS #23 tablet 04/10/17 Mirtazapine [Remeron -] 30 mg PO HS #23 tablet 04/10/17 PE Head - NC/AT Lung - CTA heart - RRR abd - soft,nt,nd ext - LLE -- warm, palpable PT pulse. Good motor and sensory intact. US done in ER -- does not show any occlusions. A/P S/P Left TKR early april. Complains of numbness and paresthesia for over a week. Pt said she was in [place] where the symptoms got worse. Will ask ortho to evaluate pt. Can get CTA for gold standard test to check runoff. Pt has risk factors of skilled nursing smoking and DM Gabriel Guzmán DO
[2017-04-26] MEDS ORDERED: POTASSIUM PHOSPHATE 30 MM in SODIUM CHLORIDE 500 ML IVPB ONE (10:30)
--- NOTE | 2017-04-26 10:41 | EKG ---
Test Reason : Blood Pressure : / mmHG Vent. Rate : 075 BPM Atrial Rate : 075 BPM P-R Int : 172 ms QRS Dur : 094 ms QT Int : 410 ms P-R-T Axes : 065 081 062 degrees QTc Int : 457 ms NORMAL SINUS RHYTHM WITH SINUS ARRHYTHMIA NORMAL ECG WHEN COMPARED WITH ECG OF 11-JAN-2017 10:26, NO SIGNIFICANT CHANGE WAS FOUND Confirmed by YEYO GARZA MD ([id number]) on 04/26/2017 10:41:04 AM Referred By: Confirmed By:YEYO GARZA MD
--- NOTE | 2017-04-26 12:36 | PN ---
Progress Note (short form) - Note Progress Note: Vascular Surgery Pt seen and examined. CTA reviewed with radiology. Pt has right sfa occlusion. On the left leg - popliteal artery is occluded. Cannot exclude thrombus. Pt claims her leg has been numb for 7 days now. Explained to the pt she needs a angiogram, possible open thrombectomy of LLE Will do later this afternoon. Pt is NPO Gabriel Guzmán DO
[2017-04-26] MEDS ORDERED: MIDAZOLAM HCL 2 MG/2 ML SINGLE DOSE VIAL ONE ×2 (18:06)
[2017-04-26] MEDS ORDERED: PROPOFOL 20 ML ONE ×3 (18:06)
[2017-04-26] MEDS ORDERED: ceFAZolin SODIUM 1 GM VIAL IVPB ONE (18:14)
[2017-04-26] MEDS ORDERED: LIDOCAINE HCL 1%, 10 MG/ML (50 mL VIAL) IJ ONE (18:17)
--- NOTE | 2017-04-26 18:27 | PN ---
Teaching Attending Note Name of Resident: Argelia Beck ATTENDING PHYSICIAN STATEMENT I saw and evaluated the patient. I reviewed the resident's note and discussed the case with the resident. I agree with the resident's findings and plan as documented. SUBJECTIVE: pt c/o mild pain to left lower extremity OBJECTIVE: Last Vital Signs Temp Pulse Resp BP Pulse Ox 97.7 F 62 18 104/65 99 04/26/17 16:16 04/26/17 16:16 04/26/17 16:16 04/26/17 16:16 04/26/17 13:21 general- appears comfortable heent -at ,moist oral mucosa, no oral thrush Ext- b/l dorsalis pedis pulses appreciated Abdomen- soft, nontender, no masses left toes feel cooler than right toes LLE duplex: no DVT. L popliteal artery biphasic waveforms with dampened peak systolic velocity, CT angiogram - left popliteal occlusion and right SILO MAN occ. ASSESSMENT AND PLAN: 57F w/ hx of HTN, HLD, CAD (s/p stent x2 in 2014), DMT2, HIV, asthma, and H. pylori presented with acute LLE pain and parasthesias, found to have left popliteal a. occlusion and right SILO MAN occlusion. ASSESSMENT AND PLAN: # L popliteal arterial occlusion, right SILO MAN occlusion, vascular surgery recs appreciated, s/p angiogram -heparin drip -vascular checks -pain control -for embolectomy/ revascularization procedure today -no antiplatelet drugs -IVF -NPO -restart home medications for chronic medical problems -verify HIV medication with pharmacy #DVT ppx -on heparin drip
--- NOTE | 2017-04-26 19:16 | OP ---
Operative Note - Note: Operative Date: 04/26/17 Pre-Operative Diagnosis: Left lower extremity ischemia Operation: Aortogram, LLE angiogram, SFA, Popliteal artery angioplasty with stent placement. Findings: Distal SFA, above knee pop occlusion Post-Operative Diagnosis: Same as Pre-op Surgeon: Gabriel Guzmán Anesthesia: Fractional Estimated Blood Loss (mls): 50 Operative Report Dictated: Yes
[2017-04-26] MEDS ORDERED: PROMETHAZINE HCL 25 MG/1 ML VIAL IVPUSH PRN (19:22)
[2017-04-26] MEDS ORDERED: ONDANSETRON 4 MG/2 ML VIAL IVPUSH PRN (19:22)
--- NOTE | 2017-04-26 19:22 | PN ---
Progress Note (short form) - Note Progress Note: Vascular Surgery S/P angiogram, angioplasty with stent placement in sfa and popliteal artery for occlusion. Pt started on Plavix due to stent placement and should be DC home on plavix. Gabriel Guzmán DO
[2017-04-26] MEDS ORDERED: CLOPIDOGREL BISULFATE 75 MG TABLET (FP) ONE (19:37)
[2017-04-26] MEDS: CLOPIDOGREL BISULFATE 75 MG TABLET (FP) PO SCH ×2 (19:43→22:07)
--- NOTE | 2017-04-26 20:36 | PN ---
Physical Exam: SUBJECTIVE: Patient seen and examined. Pt c/o Left LE tenderness, decreased sensation, weakness, and unsteady gait. Pt denies chest pain, palpitations, sob. No events overnight. OBJECTIVE: Vital Signs Period Temp Pulse Resp BP Sys/Cota Pulse Ox Last 24 Hr 97.7 F-97.9 F 62-86 17-18 93-125/61-85 97-99 GENERAL: The patient is awake, alert, and fully oriented, in no acute distress, appears comfortable. HEAD: Normal with no signs of trauma. EYES: Extraocular movements intact, sclera anicteric, conjunctiva clear. No ptosis. ENT: Oropharynx clear without exudates, moist mucous membranes. NECK: Trachea midline, supple. LUNGS: Breath sounds equal, clear to auscultation bilaterally, no wheezes, no crackles, no accessory muscle use. HEART: Regular rate and rhythm, S1, S2 without murmur, rub or gallop. ABDOMEN: Soft, nontender, nondistended, no guarding, no rebound. EXTREMITIES: 1+ dorsalis pedis pulses barney, motor and sensory intact barney. NEUROLOGICAL: Cranial nerves II through XII grossly intact. Normal speech, unsteady gait. PSYCH: Normal mood, normal affect. SKIN: Warm, dry, normal turgor, no rashes or lesions noted Laboratory Results - last 24 hr 04/26/17 04/26/17 04/26/17 04:00 06:40 06:40 WBC 5.9 RBC 4.16 Hgb 11.2 Hct 34.3 MCV 82.4 MCH 26.9 MCHC 32.7 RDW 15.1 Plt Count 145 MPV 10.3 Neutrophils % 43.3 D Lymphocytes % 47.8 H D Monocytes % 6.9 Eosinophils % 1.5 Basophils % 0.5 PT with INR 12.00 H INR 1.06 PTT (Actin FS) 55.8 H D Sodium 138 Potassium 3.5 Chloride 107 Carbon Dioxide 22 Anion Gap 9 BUN 15 Creatinine 1.1 H D Creat Clearance w eGFR POC Glucometer Random Glucose 304 H* D Calcium 7.3 L Phosphorus Magnesium Total Bilirubin AST ALT Alkaline Phosphatase Total Protein Albumin Blood Type Antibody Screen 04/26/17 04/26/17 04/26/17 06:40 06:40 16:49 WBC RBC Hgb Hct MCV MCH MCHC RDW Plt Count MPV Neutrophils % Lymphocytes % Monocytes % Eosinophils % Basophils % PT with INR INR PTT (Actin FS) Sodium 138 Potassium 3.6 Chloride 106 Carbon Dioxide 25 Anion Gap 7 L BUN 15 Creatinine 1.0 Creat Clearance w eGFR 57.56 POC Glucometer 177 Random Glucose 256 H Calcium 7.6 L Phosphorus 2.3 L Magnesium 1.8 D Total Bilirubin 0.4 AST 14 L ALT 17 Alkaline Phosphatase 130 H Total Protein 5.8 L Albumin 2.5 L Blood Type B POSITIVE Antibody Screen Negative Active Medications Generic Name Dose Route Start Last Admin Trade Name Freq PRN Reason Stop Dose Admin Acetaminophen 1,000 mg 04/26/17 02:49 04/26/17 14:20 Ofirmev Injection - IVPB 1,000 mg Q8H PRN Administration PAIN Albuterol/Ipratropium 1 amp 04/26/17 04:48 Duoneb - NEB Q6H PRN SHORT OF BREATH/WHEEZING Atorvastatin Calcium 10 mg 04/26/17 22:00 Lipitor - PO HS JENNIFER Ezetimibe 10 mg 04/26/17 10:00 04/26/17 12:03 Zetia - PO 10 mg DAILY JENNIFER Administration Escitalopram Oxalate 20 mg 04/26/17 22:00 Lexapro - PO HS JENNIFER Fenofibric Acid 135 mg 04/26/17 07:00 04/26/17 07:30 Trilipix - PO Not Given AM JENNIFER Gabapentin 300 mg 04/26/17 10:00 04/26/17 12:00 Neurontin - PO 300 mg BID JENNIFER Administration Heparin Sodium (Porcine) 25, 500 mls @ 20 mls/hr 04/26/17 01:00 04/26/17 01:30 000 unit/ Sodium Chloride IV 20 mls/hr TITR JENNIFER Administration Protocol 1,000 UNIT/HR Sodium Chloride 1,000 mls @ 125 mls/hr 04/26/17 03:00 04/26/17 04:53 Normal Saline - IV 125 mls/hr ASDIR JENNIFER Administration Insulin Aspart 1 vial 04/26/17 07:00 04/26/17 16:53 Novolog Vial Sliding Scale - SQ Not Given ACHS JENNIFER Protocol Loratadine 10 mg 04/26/17 02:54 Claritin - PO DAILY PRN allergies Magnesium Oxide 200 mg 04/26/17 02:54 Mag-Ox - PO DAILY PRN HEADACHE Mirtazapine 30 mg 04/26/17 22:00 Remeron - PO HS JENNIFER Morphine Sulfate 2 mg 04/26/17 02:50 Morphine Injection - IVPUSH Q4H PRN PAIN Non-Formulary Medication 1 each 04/26/17 22:00 Emtricitabine/Tenofov Alafenam [Descovy 200-25 Mg Tablet] PO HS JENNIFER Non-Formulary Medication 2 cap 04/26/17 10:00 Icosapent Ethyl [Vascepa] PO BID JENNIFER Non-Formulary Medication 4 mg 04/26/17 02:54 Tizanidine Hcl [Tizanidine Hcl] PO TID PRN PAIN Nystatin 1 applic 04/26/17 02:54 Nystop Powder - TP BID PRN rash Pantoprazole Sodium 20 mg 04/26/17 10:00 04/26/17 12:01 Protonix - PO 20 mg BID JENNIFER Administration IMAGIN04/26/17 Aorta with runoff CTA - occluded proximal Right SFA with reconstitution distally. There is 3-vessel runoff to the Right foot. Occluded distal Left SFA with reconstitution of the popliteal artery distally. There is 2-vessel runoff to the Left foot. No evidence of AAA. ASSESSMENT/PLAN: 57yo F with PMH of HTN, HLD, CAD (s/p stent x2 in 2014), DMT2, HIV, asthma, and H. pylori who presents with acute LLE pain and parasthesias, found to have arterial duplex findings of ischemia, admitted for LLE ischemia 2/2 worsening PAD. 1) LLE pain - Left popliteal arterial occlusion likely 2/2 worsening PAD - Left popliteal artery angioplasty with stent placement today by Dr. Guzmán ( Vascular Surgery) - pain control with morphine and Ofirmev 2) DM - BGM achs - sliding scale insulin - continue gabapentin for diabetic neuropathy 3) hypophosphatemia - potassium phosphate 30mm given - continue to monitor 4) HTN - continue lisinopril 5) HLD -continue lipitor, trilipix and zetia 6) HIV -continue tivicay and descovy 7) asthma - continue duonebs PRN 8) FEN - Fluids: NS @ 125cc/hr - Electrolytes: wnl, continue to monitor - Nutrition: diabetic, low sodium diet 9) Prophylaxis - DVT ppx with Heparin - GI ppx with Prontonix Visit type - Emergency Visit Emergency Visit: Yes ED Registration Date: 04/26/17 Care time: The patient presented to the Emergency Department on the above date and was hospitalized for further evaluation of their emergent condition. - New Patient This patient is new to me today: Yes Date on this admission: 04/26/17 - Critical Care Critical Care patient: No
--- NOTE | 2017-04-26 20:43 | OP ---
DATE OF OPERATION: 04/26/2017 PREOPERATIVE DIAGNOSIS: Left lower extremity ischemia. POSTOPERATIVE DIAGNOSIS: Left lower extremity ischemia. PROCEDURE: Aortogram, left lower extremity angiogram, superficial femoral artery and popliteal artery angioplasty with stent placement. SURGEON: Gabriel Wilder DO ANESTHESIA: Fractional. BLOOD LOSS: 50 mL. The patient is a 57-year-old female who comes in with left lower extremity ischemia in the form of numbness for the last 7 days. She claims she cannot feel her foot when she walks. She has been in [place] all this time, from the to the , and then got off the plane and felt that her leg was numb; it has been numb since that whole time. The patient had a CTA, showing that she has bilateral SFA occlusions above the knee. She is a diabetic, HIV positive patient, with 40-year history of smoking. The patient was consented for the procedure, understanding all risks, benefits, alternatives. She was then taken to the operating room. Once in the operating room, she was laid on the operating table in a supine manner and the area of the right and left groin were prepped and draped in a sterile surgical manner. We then went ahead and injected 10 mL lidocaine 1% over the right common femoral artery. We then used our micropuncture needle, punctured the right common femoral artery. Micropuncture wire was inserted and micropuncture sheath was inserted. A 0.035 floppy guidewire was inserted, and a traditional 5-Burmese sheath was inserted. We then placed an Omni Flush catheter up into the aorta and then shot an aortogram via hand injection, showing that the aorta and the iliac arteries were without any disease. We then went ahead and used our 0.035 floppy guidewire and went up and over to the left common femoral artery, and our Omni Flush catheter followed. We then shot an angiogram of the left lower extremity showing that the common femoral artery, the profunda, and the SFA were patent, the distal SFA was occluded about 10 cm above the knee. The popliteal artery was occluded and came back into below knee popliteal artery and the patient had 3 vessels at the trifurcation, and 2-vessel runoff into the foot. At this point, we placed a 0.035 stiff guidewire into the SFA. We removed our Omni Flush catheter and placed a 6 x 45 crossover sheath. Then 5000 units of IV heparin were administered to patient. We then went ahead and used a 0.035 stiff guidewire and went down into the SFA occlusion, followed by a Seeker catheter, and we were able to cross our occlusion and placed a wire into the anterior tibial artery. We then went ahead and used a 4 x 100 balloon and performed angioplasty from behind the knee all the way up to the distal SFA. Completion angiogram showed that the artery was still not patent, there was recoil, there was minimal flow. At this point, we then went ahead and placed a 6 x 170 LifeStent from the knee joint all the way up to the distal SFA. We then ballooned that in place using a 5 x 150 balloon. Completion angiogram now showed that the SFA and popliteal artery were patent, there was good brisk flow. The patient had 2 vessel runoff into the foot. On examination, patient had dopplerable DP and PT pulses in the operating room. At this point, we brought our sheath up and over, StarClose device was successfully deployed in the right common femoral artery. It was wet and dried and Dermabond was placed. Patient tolerated procedure, no complications. Patient transferred back in stable condition. Patient will be given a dose of Plavix in the PACU. GABRIEL WILDER DO [id number]
[2017-04-26] MEDS: SODIUM CHLORIDE 1,000 ML IV SCH ×2 (21:06→22:01)
[2017-04-26] MEDS: oxyCODONE HCL 5 MG TABLET PO PRN (21:14)
[2017-04-26] MEDS ORDERED: MIRTAZAPINE 15 MG TABLET (FP) ONE (21:55)
[2017-04-26] MEDS ORDERED: MONTELUKAST NA 10 MG TABLET PO SCH (22:00)
[2017-04-26] MEDS ORDERED: PATIENT'S OWN MEDICATION (NON-FORMULARY) (Emtricitabine/Tenofov Alafenam [Descovy 200-25 M PO SCH ×2 (22:00)
[2017-04-26] MEDS ORDERED: MIRTAZAPINE 30 MG TABLET (FP) PO SCH ×2 (22:00)
[2017-04-26] MEDS ORDERED: ATORVASTATIN CA 10 MG TABLET (FP) PO SCH ×2 (22:00)
[2017-04-26] MEDS ORDERED: CYCLOBENZAPRINE HCL 10 MG TABLET (FP) PO SCH (22:00)
[2017-04-26] MEDS ORDERED: ESCITALOPRAM OXALATE 20 MG TABLET (FP) PO SCH ×2 (22:00)
[2017-04-26] MEDS ORDERED: LISINOPRIL 5 MG TABLET (FP) PO SCH (22:00)
[2017-04-26] MEDS: GABAPENTIN 300 MG CAPSULE (FP) PO SCH (22:06)
[2017-04-26] MEDS: PANTOPRAZOLE 20 MG TABLET (FP) PO SCH (22:07)
[2017-04-27] MEDS: oxyCODONE HCL 5 MG TABLET PO PRN ×2 (02:58→07:18)
[2017-04-27] MEDS ORDERED: INSULIN (NOVOLOG) ASPART 100 UNITS/ML 10ML VIAL ONE (06:21)
[2017-04-27] MEDS: SODIUM CHLORIDE 1,000 ML IV SCH (06:27)
[2017-04-27] MEDS: INSULIN SLIDING SCALE (NOVOLOG) 1 VIAL SQ SCH ×2 (06:27→10:57)
[2017-04-27] MEDS ORDERED: FENOFIBRIC ACID 135 MG CAP PO SCH (07:00)
--- NOTE | 2017-04-27 08:02 | PN ---
Progress Note (short form) - Note Progress Note: Anesthesia POD#1 S/P Angiogram/angioplasty under MAC VSS,no N/V,no pain. No complications to anesthesia seen. Leigh Ann Boucher MD.
[2017-04-27 08:43] LABS: MCH 27.5 pg (25.7-33.7); MCHC 33.2 g/dl (32.0-36.0); MEAN CELL VOLUME 82.7 fl (80-96); MEAN PLT VOLUME 10.1 fl (7.5-11.1); PLATELET COUNT 129 K/MM3 (134-434); RDW 15.3 % (11.6-15.6); WHITE BLOOD COUNT 6.6 K/mm3 (4.0-10.0)
[2017-04-27 08:54] LABS: INR 1.04 (0.82-1.09); PROTHROMBIN TIME (PATIENT) 11.7 SEC (9.98-11.88)
[2017-04-27 08:56] LABS: ACTIVATED PTT 23.5 SECONDS (26.9-34.4)
[2017-04-27 09:02] LABS: ALBUMIN 2.4 g/dl (3.4-5.0); ALK PHOS 119 U/L (45-117); ANION GAP 8 (8-16); BILIRUBIN,TOTAL 0.2 mg/dL (0.2-1.0); CALCIUM 7.1 mg/dL (8.5-10.1); CO2 22 mmol/L (21-32); MAGNESIUM 1.6 mg/dL (1.8-2.4); PHOSPHOROUS 2.9 mg/dL (2.5-4.9); SGOT/AST 14 U/L (15-37); SGPT/ALT 22 U/L (12-78); TOT PROT 5.7 g/dl (6.4-8.2)
[2017-04-27 09:42] LABS: GLUCOSE,RANDOM 310 mg/dL (74-106)
[2017-04-27] MEDS ORDERED: PT OWN MED DRAWER 7, Y5N ONE (09:48)
[2017-04-27] MEDS: CLOPIDOGREL BISULFATE 75 MG TABLET (FP) PO SCH (09:56)
[2017-04-27] MEDS: PANTOPRAZOLE 20 MG TABLET (FP) PO SCH (09:56)
[2017-04-27] MEDS: GABAPENTIN 300 MG CAPSULE (FP) PO SCH (09:56)
[2017-04-27] MEDS ORDERED: EZETIMIBE 10 MG TABLET (FP) PO SCH (10:00)
[2017-04-27] MEDS ORDERED: DOLUTEGRAVIR SODIUM 50 MG TABLET PO SCH (10:00)
[2017-04-27 10:28] VITALS: BP 126/73; PULSE 82; TEMP 97.5
--- NOTE | 2017-04-27 11:27 | DS ---
Physical Exam: SUBJECTIVE: Patient seen and examined at bedside feels well still has left leg numbness but slightly improved OBJECTIVE: Vital Signs Period Temp Pulse Resp BP Sys/Cota Pulse Ox Last 24 Hr 97.5 F-97.8 F 62-86 10-20 100-126/61-85 96-100 PHYSICAL EXAM GENERAL: The patient is awake, alert, and fully oriented, in no acute distress. HEAD: Normal with no signs of trauma. ENT: moist mucous membranes. NECK: supple. LUNGS: Breath sounds equal, clear to auscultation bilaterally, no wheezes, no crackles HEART: Regular rate and rhythm EXTREMITIES: 2+ DP pulses bilaterally bother lower extremities warm to touch with good capillary refill LABS Laboratory Results - last 24 hr 04/26/17 04/26/17 04/26/17 08:57 12:51 16:49 WBC RBC Hgb Hct MCV MCH MCHC RDW Plt Count MPV PT with INR INR PTT (Actin FS) Sodium Potassium Chloride Carbon Dioxide Anion Gap BUN Creatinine Creat Clearance w eGFR POC Glucometer [phone] 177 Random Glucose Calcium Phosphorus Magnesium Total Bilirubin AST ALT Alkaline Phosphatase Total Protein Albumin 04/26/17 04/27/17 04/27/17 22:04 06:26 08:21 WBC 6.6 RBC 3.77 Hgb 10.4 L Hct 31.2 L MCV 82.7 MCH 27.5 MCHC 33.2 RDW 15.3 Plt Count 129 L MPV 10.1 PT with INR INR PTT (Actin FS) Sodium Potassium Chloride Carbon Dioxide Anion Gap BUN Creatinine Creat Clearance w eGFR POC Glucometer 316 340 Random Glucose Calcium Phosphorus Magnesium Total Bilirubin AST ALT Alkaline Phosphatase Total Protein Albumin 04/27/17 04/27/17 04/27/17 08:21 09:00 10:55 WBC RBC Hgb Hct MCV MCH MCHC RDW Plt Count MPV PT with INR 11.70 INR 1.04 PTT (Actin FS) 23.5 L D Sodium 138 Potassium 4.3 Chloride 108 H Carbon Dioxide 22 Anion Gap 8 BUN 10 D Creatinine 1.0 Creat Clearance w eGFR 57.56 POC Glucometer 296 Random Glucose 310 H* D Calcium 7.1 L Phosphorus 2.9 D Magnesium 1.6 L Total Bilirubin 0.2 D AST 14 L ALT 22 D Alkaline Phosphatase 119 H Total Protein 5.7 L Albumin 2.4 L HOSPITAL COURSE: Date of Admission:04/26/17 Date of Discharge: 04/27/17 57F with extensive PMH presented to the ED with leg pain and numbness for 1 week. She had a CTA of bilateral lower extremities which showed Right proximal SFA and left distal SFA occlusion. She was started on a heparin gtt and then She was taken to the OR and had an angiogram and angioplasty with stent placement and was started on plavix. Her symtpooms improved and the perfusion to her lower extremities have significantly increased clinically. She is stable for discharge. She will be on plavix Minutes to complete discharge: 35 Discharge Summary Reason For Visit: VASCULAR OCCLUSION Current Active Problems Abnormal finding of foot (Acute) HTN (hypertension) (Acute) Hyperglycemia (Acute) Ischemic leg (Acute) Leg pain (Acute) Vascular occlusion (Acute) PAD (peripheral artery disease) (Chronic) Condition: Improved - Instructions Diet, Activity, Other Instructions: Please resume your home medications if you have worsening pain or symptoms in your leg please call your doctor and/ or go to the nearest emergency room Eat a low carbohydrate diabertic diet you will need to be on plavix i will send a prescription to your pharmacy you will need to take it everyday Please follow up with huaron Dr. Guzmán and your Primary care doctor in 1 week It was a pleasure taking care of you Dr. Dru Pollack Referrals: Jossie Jimenes NP [Nurse Practitioner] - 1 Week Gabriel Guzmán MD [Staff Physician] - 1 Week Disposition: HOME - Home Medications Comprehensive Discharge Medication List: Ambulatory Orders Insulin Degludec [Tresiba Flextouch U-100] 35 unit SQ HS 02/17/16 Inhaler, Assist Devices [Space Chamber Plus] 1 each ASDIR #1 spacer 06/15/16 Peak Flow Meter [Assess] 1 each ASDIR #1 each 06/15/16 Gabapentin [Neurontin] 600 mg PO BID 07/06/16 Insulin Lispro [Humalog Kwikpen U-200] 15 unit SQ TID 07/06/16 Magnesium 200 mg PO DAILY PRN 07/06/16 Lancing Device/Lancets [Onetouch Delica Lancing Dev] 1 each MC TID #100 each Tramadol HCl [Ultram -] 50 mg PO DAILY PRN 03/07/17 Clonazepam [Klonopin] 1 mg PO DAILY #30 tablet MDD 1 10/04/17 Container,Empty [Sharps Container] 1 each MC ASDIR #1 each 04/04/17 Dolutegravir Sodium [Tivicay] 50 mg PO DAILY #30 tablet 04/04/17 Emtricitabine/Tenofov Alafenam [Descovy 200-25 mg Tablet] 1 each PO HS #30 tablet 04/04/17 Lisinopril 5 mg PO HS #30 tablet 04/04/17 Loratadine [Claritin -] 10 mg PO DAILY PRN #30 tablet 04/04/17 Omeprazole 20 mg PO BID #60 tablet. 04/04/17 Pravastatin Sodium [Pravachol -] 40 mg PO HS #30 tablet 04/04/17 Zolpidem Tartrate [Ambien] 5 mg PO HS #30 tab MDD 1 04/04/17 Escitalopram Oxalate [Lexapro -] 20 mg PO HS #23 tablet 04/10/17 Mirtazapine [Remeron -] 30 mg PO HS #23 tablet 04/10/17 Cyclobenzaprine HCl [Flexeril -] 10 mg PO TID 04/26/17 Montelukast Na [Singulair -] 10 mg PO HS 04/26/17 Clopidogrel Bisulfate [Plavix -] 75 mg PO DAILY #30 tablet 04/27/17 This patient is new to me today: Yes Date on this admission: 04/27/17 Emergency Visit: Yes ED Registration Date: 04/26/17 Care time: The patient presented to the Emergency Department on the above date and was hospitalized for further evaluation of their emergent condition. Critical Care patient: No - Discharge Referral Referred to [facility] Med [facility] No
[2017-04-27] MEDS ORDERED: HEPARIN NA (PORCINE) 5,000 UNITS/ML 1ML VIAL SQ SCH (14:00)
[2017-04-27] MEDS ORDERED: INSULIN DETEMIR 100 UNITS/ML MDV SQ SCH (22:00)
== END 2017-04-27 11:31 | disposition home or self-care (01) | DRG 253 ==
LOC: JER 20:53 → JERBED 04-26 02:29 → UNDOADMIN 04-26 04:13 → JERBED 04-26 04:13 → J8W 04-26 13:57
PROVIDERS: ADMIT Internal Medicine; ATTEND Internal Medicine
PROC: 047L3DZ Dilation of Left Femoral Artery with Intraluminal Device, Percutaneous Approach (ICD-10-PCS; 2017-04-26)
PROC: 3E033GC Introduction of Other Therapeutic Substance into Peripheral Vein, Percutaneous Approach (ICD-10-PCS; 2017-04-26)
PROC: B41DZZZ Fluoroscopy of Aorta and Bilateral Lower Extremity Arteries (ICD-10-PCS; 2017-04-26)
PROC: 047N3DZ Dilation of Left Popliteal Artery with Intraluminal Device, Percutaneous Approach (ICD-10-PCS; principal; 2017-04-26 17:00)
DX: E11.51 Type 2 diabetes mellitus with diabetic peripheral angiopathy without gangrene (principal); N17.9 Acute kidney failure, unspecified; E87.1 Hypo-osmolality and hyponatremia; E11.40 Type 2 diabetes mellitus with diabetic neuropathy, unspecified; I25.10 Atherosclerotic heart disease of native coronary artery without angina pectoris; I10 Essential (primary) hypertension; J44.9 Chronic obstructive pulmonary disease, unspecified; K21.9 Gastro-esophageal reflux disease without esophagitis; E78.5 Hyperlipidemia, unspecified; F41.8 Other specified anxiety disorders; F17.210 Nicotine dependence, cigarettes, uncomplicated; E83.39 Other disorders of phosphorus metabolism; R00.0 Tachycardia, unspecified; Z21 Asymptomatic human immunodeficiency virus [HIV] infection status; I77.1 Stricture of artery; E11.21 Type 2 diabetes mellitus with diabetic nephropathy; E11.65 Type 2 diabetes mellitus with hyperglycemia; Z79.4 Long term (current) use of insulin; Z98.61 Coronary angioplasty status; Z96.652 Presence of left artificial knee joint; Z87.442 Personal history of urinary calculi
CPT/HCPCS: 36415; 75635-TC; 76000-TC; 80048; 80053; 83735; 84100; 85025; 85027; 85610; 85730; 86850; 86900; 86901; 93005; 93010; 93926-TC; 93971-TC; 94760; 99284-25; J1644

== ENCOUNTER 2017-05-10 07:41 | Day surgery (SDC) | payer OTHER ==
[2017-05-09 14:27] VITALS: BMI 30.6
[2017-05-10] MEDS ORDERED: LIDOCAINE HCL 1%, 10 MG/ML (20ML VIAL) ONE (09:11)
[2017-05-10] MEDS ORDERED: HEPARIN NA (PORCINE) 5,000 UNITS/ML 1ML VIAL ONE ×2 (09:12→09:52)
[2017-05-10] MEDS ORDERED: LIDOCAINE HCL/PF 2% SDV 5ML VIAL ONE (09:44)
[2017-05-10] MEDS ORDERED: PROPOFOL 20 ML ONE ×2 (09:45)
[2017-05-10] MEDS ORDERED: MIDAZOLAM HCL 2 MG/2 ML SINGLE DOSE VIAL ONE (09:45)
[2017-05-10] MEDS ORDERED: ceFAZolin SODIUM 1 GM VIAL ONE (09:58)
[2017-05-10] MEDS ORDERED: LIDOCAINE HCL 1%, 10 MG/ML (20ML VIAL) NR ONE ×2 (10:09)
[2017-05-10] MEDS ORDERED: ACETAMINOPHEN 325 MG TABLET (FP) PO PRN (10:35)
[2017-05-10] MEDS ORDERED: ONDANSETRON 4 MG/2 ML VIAL IVPUSH PRN (10:35)
[2017-05-10] MEDS ORDERED: LACTATED RINGERS SOLUTION 1,000 ML IV SCH (10:45)
--- NOTE | 2017-05-10 11:47 | OP ---
Operative Note - Note: Operative Date: 05/10/17 Pre-Operative Diagnosis: RLE claudication Operation: Aortogram, RLE angiogram, SFA orbital atherectomy, SFA DCB angioplasty Findings: SFA occlusion right lower ext Post-Operative Diagnosis: Same as Pre-op Surgeon: Gabriel Guzmán Anesthesia: Fractional Estimated Blood Loss (mls): 50 Operative Report Dictated: Yes
--- NOTE | 2017-05-10 11:49 | HP ---
Admitting History and Physical - Admission Chief Complaint: RLE claudication Limitations to Obtaining History: No Limitations - Past Medical History Cardiovascular: Yes: HTN, Hyperlipdemia Pulmonary: Yes: Asthma Hepatobiliary: Yes: Cholelithiasis ...LMP: 09/30/09 Infectious Disease: Yes: HIV Endocrine: Yes: Diabetes Mellitus - Past Surgical History Past Surgical History: Yes: Cholecystectomy - Smoking History Smoking history: Current every day smoker Have you smoked in the past 12 months: Yes Aproximately how many cigarettes per day: 5 If you are a former smoker, when did you quit?: 2 months - Alcohol/Substance Use Hx Alcohol Use: No - Social History ADL: Independent History of Recent Travel: No Home Medications - Allergies Allergies/Adverse Reactions: Allergies Allergy/AdvReac Type Severity Reaction Status Date / Time No Known Allergies Allergy Verified 05/10/17 08:19 - Home Medications Home Medications: Ambulatory Orders Inhaler, Assist Devices [Space Chamber Plus] 1 each ASDIR #1 spacer 06/15/16 Peak Flow Meter [Assess] 1 each ASDIR #1 each 06/15/16 Gabapentin [Neurontin] 600 mg PO BID 07/06/16 Magnesium 200 mg PO DAILY PRN 07/06/16 Tramadol HCl [Ultram -] 50 mg PO DAILY PRN 03/07/17 Dolutegravir Sodium [Tivicay] 50 mg PO DAILY #30 tablet 04/04/17 Emtricitabine/Tenofov Alafenam [Descovy 200-25 mg Tablet] 1 each PO HS #30 tablet 04/04/17 Lisinopril 5 mg PO HS #30 tablet 04/04/17 Loratadine [Claritin -] 10 mg PO DAILY PRN #30 tablet 04/04/17 Omeprazole 20 mg PO BID #60 tablet. 04/04/17 Pravastatin Sodium [Pravachol -] 40 mg PO HS #30 tablet 04/04/17 Cyclobenzaprine HCl [Flexeril -] 10 mg PO TID 04/26/17 Montelukast Na [Singulair -] 10 mg PO HS 04/26/17 Clopidogrel Bisulfate [Plavix -] 75 mg PO DAILY #30 tablet 04/27/17 Aspirin [Aspirin EC] 81 mg PO DAILY 05/02/17 Clonazepam [Klonopin] 1 mg PO BID #60 tablet MDD 2 05/02/17 Escitalopram Oxalate [Lexapro -] 20 mg PO HS #30 tablet 05/02/17 Insulin Glargine,Hum.rec.anlog [Toujeo Solostar] 35 unit SQ HS 05/02/17 Insulin Lispro [Humalog Kwikpen U-200] 15 unit SQ TID #7 ea 05/02/17 Mirtazapine [Remeron -] 30 mg PO HS #30 tablet 05/02/17 Zolpidem Tartrate [Ambien] 5 mg PO HS #30 tab MDD 1 05/02/17 Family Disease History - Family Disease History Family Disease History: Heart Disease: Grandparent, Father Review of Systems - Review of Systems Constitutional: reports: No Symptoms Eyes: reports: No Symptoms HENT: reports: No Symptoms Neck: reports: No Symptoms Cardiovascular: reports: No Symptoms Respiratory: reports: No Symptoms Gastrointestinal: reports: No Symptoms Genitourinary: reports: No Symptoms Breasts: reports: No Symptoms Reported Musculoskeletal: reports: No Symptoms Integumentary: reports: No Symptoms Neurological: reports: No Symptoms Endocrine: reports: No Symptoms Hematology/Lymphatic: reports: No Symptoms Psychiatric: reports: No Symptoms Physical Examination Vital Signs: Vital Signs Temperature 98.0 F 05/10/17 11:11 Pulse Rate 78 05/10/17 11:40 Respiratory Rate 16 05/10/17 11:40 Blood Pressure 104/56 05/10/17 11:40 O2 Sat by Pulse Oximetry (%) 94 L 05/10/17 11:40 Constitutional: Yes: Well Nourished Eyes: Yes: WNL HENT: Yes: WNL Neck: Yes: WNL Cardiovascular: Yes: WNL Respiratory: Yes: WNL Gastrointestinal: Yes: WNL ...Rectal Exam: Yes: WNL Renal/: Yes: WNL Musculoskeletal: Yes: WNL Extremities: Yes: WNL Edema: No Peripheral Pulses WNL: No Integumentary: Yes: WNL Neurological: Yes: WNL ...Motor Strength: WNL Psychiatric: Yes: WNL Assessment/Plan RLE claudication 1. For angiogram today
[2017-05-10] MEDS ORDERED: CLOPIDOGREL BISULFATE 75 MG TABLET (FP) PO ONE (11:50)
[2017-05-10] MEDS ORDERED: oxyCODONE HCL 5 MG TABLET PO PRN (12:19)
[2017-05-10] MEDS ORDERED: CLOPIDOGREL BISULFATE 75 MG TABLET (FP) ONE (12:35)
[2017-05-10 13:23] VITALS: TEMP 98.2
[2017-05-10 16:27] VITALS: BP 109/58; PULSE 80
--- NOTE | 2017-05-10 17:21 | OP ---
DATE OF OPERATION: 05/10/2017 PREOPERATIVE DIAGNOSIS: Right lower extremity claudication. POSTOPERATIVE DIAGNOSIS: Right lower extremity claudication. PROCEDURE: Aortogram, right lower extremity angiogram, superficial femoral artery atherectomy, superficial femoral artery drug-coated balloon angioplasty. SURGEON: Gabriel Wilder DO ANESTHESIA: Fractional. BLOOD LOSS: 50 mL INDICATION FOR PROCEDURE: The patient is a 57-year-old female who that right lower extremity claudication. Preoperative ultrasound showed that she has SFA occlusion. Patient came in through Ambulatory Surgery. Patient was consented for the procedure understanding all risks, benefits, and alternatives. She was then taken to the operating room. DESCRIPTION OF PROCEDURE: Once in the operating room, she was laid on the operating table in supine manner, and the areas of the right and left groin were prepped and draped in a sterile surgical manner. We then went ahead and injected 10 mL of % over the left common femoral artery. We then took our micropuncture needle and punctured the left common femoral artery. Micropuncture wire was inserted, and an additional 5-Pashto sheath was inserted. We then placed a 0.035 floppy guidewire up into the aorta, followed by an Omni Flush catheter. We then shot an aortogram via hand injection, showing that the aorta and the iliac arteries were without any disease. We then placed a 0.035 floppy guidewire up and over to the right common femoral artery, and Omni Flush catheter followed. We then shot an angiogram of the right lower extremity showing that the common femoral artery and the profunda were patent, but the SFA was occluded from the origin and came back at the adductor canal above the knee. The patient had 3-vessel runoff into the foot. At this point, we placed a 0.035 stiff guidewire down into the profunda, removed our Omni Flush catheter, and placed a 6 x 45 Crossover sheath. Next, 5000 units of IV heparin were administered to the patient. We then used a Seeker catheter, and we were able to selectively cross our SFA occlusion and get the wire into [place] lumen in the popliteal artery. The wire was placed in the popliteal artery. We then exchanged the wire out for a ViperWire. We then went ahead and performed using a I Orbital Atherectomy, we performed orbital atherectomy of the proximal SFA where it was calcified and was occluded, and we did 2-3 runs and passes of atherectomy there. We then went ahead and used a 5 x 220 balloon and performed angioplasty of the entire SFA that was occluded. We then went ahead and used a 6 x 150 and a 6 x 8 Lutonix drug-coated balloon and performed angioplasty of the SFA. We then shot a completion angiogram of the SFA, showing that the SFA was now patent with good brisk flow, with no areas of dissection and good runoff into the foot. At this point, we decided that there was no more intervention needed. We brought our Crossover sheath up and over, and StarClose device was successfully deployed in the left common femoral artery. Area was wet and dried. Pressure was held for 5 minutes, and Dermabond was placed. Patient tolerated the procedure with no complications. Patient now had a palpable pulse in the right foot, DP and PT, and patient was transferred to the PACU in stable condition. Total blood loss: 50 mL. GABRIEL WILDER DO NP/[id number]
== END 2017-05-10 15:30 | disposition home or self-care (01) ==
LOC: JASU-SURG 07:41
PROC: 04CK3ZZ Extirpation of Matter from Right Femoral Artery, Percutaneous Approach (ICD-10-PCS; principal; 2017-05-10 11:00)
DX: I70.211 Atherosclerosis of native arteries of extremities with intermittent claudication, right leg (principal)
CPT/HCPCS: 37225; C1874; C2623; 76000-TC; 94760; J1644

== ENCOUNTER 2017-05-25 16:08 | Emergency (ER) | payer OTHER ==
[2017-05-25 16:42] VITALS: TEMP 98.4; BMI 30.6
[2017-05-25] MEDS ORDERED: HALOPERIDOL LACTATE 5 MG/ML IM ONE (16:48)
--- NOTE | 2017-05-25 16:48 | PDOC ---
History of Present Illness <Frank Lang - Last Filed: 05/25/17 18:47> - General History Source: Patient Exam Limitations: No Limitations - History of Present Illness Initial Comments: 05/25/17 17:44 The patient is a 57 year old female, with a significant past medical history of hypertension, hyperlipidemia, diabetes, kidney stones, GERD, CAD(s/p stents, on Plavix), anxiety, HIV, and right lower extremity claudication(s/p RLE aortogram , angiogram, superficial femoral artery atherectomy/angioplasty), who presents to the emergency department with spasms and pain to the right lower extremity since earlier today. The patient reports sudden onset of of RLE pain and spasms today. She reports her episodes are intermittent in nature and localized to her upper thigh. Patient denies any associated chest pain, shortness of breath, diaphoresis, palpitations, lower extremity edema, or calf cramping. Patient reports similar episodes in the past and states her episodes happen twice a week , but her pain has not been tolerable. Patient reports taking Tramadol with minimal relief of symptoms. Patient denies any neck or back pain, fever, chills , dizziness, or lightheadedness. She denies any nausea or vomiting. She denies any dysuria, hematuria, frequency, or urgency. She denies any recent travel or sick contacts. Allegies: NKDA Past Surgical History: PTCA(04/04/15 w/ 1 stent to LAD), Cholecystectomy, Left knee replacement, RLE: aortogram, angiogram, superficial femoral artery atherectomy/angioplasty Social History: Current everyday smoker. No ETOH or recreational drug use. <Cody Ceron - Last Filed: 05/25/17 19:09> - General Chief Complaint: Pain, Acute Stated Complaint: PAIN Time Seen by Provider: 05/25/17 16:42 Past History - Past Medical History Anemia: No Asthma: Yes Cancer: No Cardiac Disorders: Yes (CAD,2 stents) CVA: No COPD: Yes CHF: No Dementia: No Diabetes: Yes (dx 2010) GI Disorders: Yes (h. pylori; GERD) Disorders: No (kidney stones) HTN: Yes Hypercholesterolemia: Yes Kidney Stones: Yes Liver Disease: No Psychiatric Problems: Yes (ANXIETY.) Seizures: No Thyroid Disease: No - Surgical History Abdominal Surgery: No Appendectomy: No Cardiac Surgery: Yes (PTCA 04/04/15 WITH ONE STENT TO LAD-COMPLETED PLAVIX THERAPY 04/01/16 2 PAVAN) Cholecystectomy: Yes Lung Surgery: No Neurologic Surgery: No Orthopedic Surgery: Yes (04/01/16 left knee replacement) - Suicide/Smoking/Psychosocial Hx Smoking History: Current every day smoker Have you smoked in the past 12 months: Yes Number of Cigarettes Smoked Daily: 5 If you are a former smoker, when did you quit?: 2 months Cigars Per Day: 0 Information on smoking cessation initiated: No 'Breaking Loose' booklet given: 05/10/17 Hx Alcohol Use: No Drug/Substance Use Hx: No Substance Use Type: None Hx Substance Use Treatment: No <Frank Lang - Last Filed: 05/25/17 18:47> <Cody Ceron - Last Filed: 05/25/17 19:09> - Past Medical History Allergies/Adverse Reactions: Allergies Allergy/AdvReac Type Severity Reaction Status Date / Time No Known Allergies Allergy Verified 05/25/17 16:40 Home Medications: Ambulatory Orders Inhaler, Assist Devices [Space Chamber Plus] 1 each ASDIR #1 spacer 06/15/16 Peak Flow Meter [Assess] 1 each ASDIR #1 each 06/15/16 Gabapentin [Neurontin] 600 mg PO BID 07/06/16 Magnesium 200 mg PO DAILY PRN 07/06/16 Tramadol HCl [Ultram -] 50 mg PO DAILY PRN 03/07/17 Dolutegravir Sodium [Tivicay] 50 mg PO DAILY #30 tablet 04/04/17 Emtricitabine/Tenofov Alafenam [Descovy 200-25 mg Tablet (Nf)] 1 each PO HS #30 tablet 04/04/17 Lisinopril 5 mg PO HS #30 tablet 04/04/17 Loratadine [Claritin -] 10 mg PO DAILY PRN #30 tablet 04/04/17 Omeprazole 20 mg PO BID #60 tablet.dr 04/04/17 Pravastatin Sodium [Pravachol -] 40 mg PO HS #30 tablet 04/04/17 Cyclobenzaprine HCl [Flexeril -] 10 mg PO TID 04/26/17 Montelukast Na [Singulair -] 10 mg PO HS 04/26/17 Clopidogrel Bisulfate [Plavix -] 75 mg PO DAILY #30 tablet 04/27/17 Aspirin [Aspirin EC] 81 mg PO DAILY 05/02/17 Clonazepam [Klonopin] 1 mg PO BID #60 tablet MDD 2 05/02/17 Escitalopram Oxalate [Lexapro -] 20 mg PO HS #30 tablet 05/02/17 Insulin Glargine,Hum.rec.anlog [Toujeo Solostar] 35 unit SQ HS 05/02/17 Insulin Lispro [Humalog Kwikpen U-200] 15 unit SQ TID #7 ea 05/02/17 Mirtazapine [Remeron -] 30 mg PO HS #30 tablet 05/02/17 Zolpidem Tartrate [Ambien] 5 mg PO HS #30 tab MDD 1 05/02/17 Acetaminophen W/ Codeine #3 [Tylenol # 3 -] 1 tab PO Q6H #60 tablet MDD 4 Review of Systems - Review of Systems Able to Perform ROS?: Yes Comments:: 05/25/17 17:31 A complete review of 10 out of 10 review of systems is taken and is negative apart from what is previously mentioned below and in the HPI. <Cody Ceron - Last Filed: 05/25/17 19:09> *Physical Exam - Vital Signs Last Vital Signs Temp Pulse Resp BP Pulse Ox 98.4 F 115 H 16 117/60 100 05/25/17 16:34 05/25/17 16:34 05/25/17 16:34 05/25/17 16:34 05/25/17 16:34 <Frank Lang - Last Filed: 05/25/17 18:47> - Vital Signs Last Vital Signs Temp Pulse Resp BP Pulse Ox 98.4 F 115 H 16 117/60 100 05/25/17 16:34 05/25/17 16:34 05/25/17 16:34 05/25/17 16:34 05/25/17 16:34 - Physical Exam Comments: 05/25/17 17:30 Vitals: Triage Vital signs reviewed General Appearance: Moderate acute distress, well nourished well developed, Head: Atraumatic, normocephalic Cardiac: Regular rate and rhythm, no murmurs, no rubs, no gallops, Lungs: Clear to auscultation bilateral, good air movement bilaterally, Abdomen: Soft, nondistended, normal bowel sounds, nontender to palpation Extremities: Full range of motion to all extremities, no cyanosis, clubbing, or edema Skin: Warm and dry, no rashes or lesions, no petechiae Vascular: Good femoral, popliteal, and DP pulses Neuro: AOX3; Cranial Nerves 2-12 grossly intact, Strength intact to all extremities, Sensation intact to all extremities Psych: normal mood, normal affect <Cody Ceron - Last Filed: 05/25/17 19:09> Heart Score/ECG Review - ECG Intrepretation Comment:: 05/25/17 19:06 Rate of 110 bpm, normal sinus rhythm, no ST elevations or T wave inversions. <Cody Ceron - Last Filed: 05/25/17 19:09> ED Treatment Course - LABORATORY CBC & Chemistry Diagram: 05/25/17 17:19 05/25/17 17:19 <Frank Lang - Last Filed: 05/25/17 18:47> - LABORATORY CBC & Chemistry Diagram: 05/25/17 17:19 05/25/17 17:19 - Medications Given in the ED: ED Medications Discontinued Medications Generic Name Dose Route Start Last Admin Trade Name Freq PRN Reason Stop Dose Admin Haloperidol 5 mg 05/25/17 16:48 05/25/17 17:10 Haldol Injection (Fast Acting) - IM 05/25/17 16:49 5 mg ONCE ONE Administration Lorazepam 1 mg 05/25/17 16:48 05/25/17 17:10 Ativan Injection - IM 05/25/17 16:49 1 mg ONCE ONE Administration <Cody Ceron - Last Filed: 05/25/17 19:09> Medical Decision Making - Medical Decision Making 05/25/17 18:47 Patient with right lower extremity claudication status post recent angioplasty presents to the emergency department with 1 day history of spasm to the right lower extremity. On examination patient with good femoral, popliteal, and good DP pulses. Patient very anxious patient, in the ED treated with antispasmodics and has been comfortable with no pain for the last one hour The patient is pain-free with a good vascular examination at this time low suspicion for claudication especially given recent procedure patient will follow -up with her vascular surgeon on Sunday she'll return to the emergency department should her symptoms return Findings, the need for follow-up and strict return instructions discussed with patient. <Frank Lang - Last Filed: 05/25/17 18:47> *DC/Admit/Observation/Transfer - Discharge Dispostion Admit: No <Frank Lang - Last Filed: 05/25/17 18:47> - Attestations Scribe Attestion: 05/25/17 17:30 Documentation prepared by Cody Ceron, acting as medical surgical tech for Frank Lang MD. <Cody Ceron - Last Filed: 05/25/17 19:09> Diagnosis at time of Disposition: Leg pain Qualifiers: Laterality: right Qualified Code(s): M79.604 - Pain in right leg - Referrals Referrals: Jossie Jimenes, [employer] [Primary Care Provider] - - Patient Instructions Printed Discharge Instructions: DI for Leg Pain Additional Instructions: Return to the emergency department immediately if her pain returns or if your foot becomes very painful swollen cold blue numb or for any concerns. Follow-up with the vascular surgeon Dr. Alves on Sunday. Return to ED immediately for any concerns.
[2017-05-25] MEDS ORDERED: HALOPERIDOL LACTATE 5 MG/ML ONE (17:10)
[2017-05-25 17:34] LABS: BASOPHIL 0.8 % (0-2.0); EOSINOPHIL 1.1 % (0-4.5); MCH 26.8 pg (25.7-33.7); MCHC 32.6 g/dl (32.0-36.0); MEAN CELL VOLUME 82.2 fl (80-96); MEAN PLT VOLUME 9.7 fl (7.5-11.1); NEUTROPHILS 68.5 % (42.8-82.8); PLATELET COUNT 211 K/MM3 (134-434); WHITE BLOOD COUNT 15.7 K/mm3 (4.0-10.0)
[2017-05-25 18:01] LABS: ANION GAP 8 (8-16); CALCIUM 9.3 mg/dL (8.5-10.1); CO2 27 mmol/L (21-32); CREATININE 1.6 mg/dL (0.55-1.02); GLUCOSE,RANDOM 100 mg/dL (74-106)
[2017-05-25 18:55] VITALS: BP 107/66; PULSE 100
--- NOTE | 2017-05-28 23:09 | EKG ---
Test Reason : Blood Pressure : / mmHG Vent. Rate : 110 BPM Atrial Rate : 110 BPM P-R Int : 000 ms QRS Dur : 088 ms QT Int : 344 ms P-R-T Axes : 049 088 041 degrees QTc Int : 465 ms SINUS TACHYCARDIA OTHERWISE NORMAL ECG WHEN COMPARED WITH ECG OF 26-APR-2017 03:57, NO SIGNIFICANT CHANGE WAS FOUND Confirmed by RAVINDER OLIVERA MD ([id number]) on 05/28/2017 11:09:12 PM Referred By: Confirmed By:RAVINDER OLIVERA MD
== END 2017-05-25 18:53 | disposition home or self-care (01) ==
LOC: JER 16:08
PROC: 3E033NZ Introduction of Analgesics, Hypnotics, Sedatives into Peripheral Vein, Percutaneous Approach (ICD-10-PCS; principal; 2017-05-25)
PROC: 3E033NZ Introduction of Analgesics, Hypnotics, Sedatives into Peripheral Vein, Percutaneous Approach (ICD-10-PCS; 2017-05-25)
DX: M79.604 Pain in right leg (principal); Z95.820 Peripheral vascular angioplasty status with implants and grafts; I10 Essential (primary) hypertension; E78.00 Pure hypercholesterolemia, unspecified; E11.9 Type 2 diabetes mellitus without complications; Z79.4 Long term (current) use of insulin; Z95.5 Presence of coronary angioplasty implant and graft; K21.9 Gastro-esophageal reflux disease without esophagitis; Z21 Asymptomatic human immunodeficiency virus [HIV] infection status
CPT/HCPCS: 36415; 80048; 83605; 85025; 93005; 93010; 96372; 99282-25

== ENCOUNTER 2017-06-28 21:51 | Emergency (ER) | payer OTHER ==
[2017-06-28 22:02] VITALS: BP 93/71; PULSE 109; TEMP 97.6; BMI 30.2
--- NOTE | 2017-06-28 22:29 | PDOC ---
History of Present Illness - General History Source: Patient Exam Limitations: No Limitations - History of Present Illness Initial Comments: 06/28/17 22:59 The patient is a 57-year-old female with a significant past medical history of HTN, HLD, CAD (s/p 2 stents in 2014), DM, HIV positive, peripheral neuropathy, s /p 2 stents in BLE, who presents to the emergency department with bilateral calf pain, back pain, and right upper extremity pain since 8pm tonight. She states she was watching tv when the cramping pain and spasms in the legs and arm started. She states her legs were stiff and weak from the cramping and she fell. She denies any head trauma or LOC. She states the pain is 10/10 in severity. She reports she has had similar symptoms in the past. She sees pain management and takes tramadol for right arm pain, but states she ran out of tramadol recently. She reports associated lightheadedness, blurry vision, mild chest discomfort, mild epigastric pain, and numbness/tingling of hands. The patient denies palpitations, shortness of breath, leg swelling, or headache. The patient denies fever, chills, nausea, vomit, diarrhea and constipation. The patient denies dysuria, frequency, urgency and hematuria. Allergies: NKDA Past Surgical History: Rt ankle, rt elbow, rt wrist, L TKR, cholecystectomy, 2 cardiac stents (04/2015), 2 lower extremity stents (2 months ago) Social History: former smoker (quit 2 weeks ago), no other toxic habits reported PCP: Jossie Jimenes <Rosenda Montejo - Last Filed: 06/28/17 23:53> - General History Source: Patient <Billy Prieto - Last Filed: 06/29/17 00:56> - General Chief Complaint: Pain Stated Complaint: PAIN Time Seen by Provider: 06/28/17 22:13 Past History <Rosenda Montejo - Last Filed: 06/28/17 23:53> - Past Medical History Anemia: No Asthma: Yes Cancer: No Cardiac Disorders: Yes (CAD,2 stents) CVA: No COPD: No CHF: No Dementia: No Diabetes: Yes GI Disorders: Yes (h. pylori; GERD) Disorders: No (kidney stones) HTN: Yes Hypercholesterolemia: Yes Kidney Stones: Yes Liver Disease: No Psychiatric Problems: Yes (ANXIETY.) Seizures: No Thyroid Disease: No - Surgical History Abdominal Surgery: No Appendectomy: No Cardiac Surgery: Yes (PTCA 04/04/15 WITH ONE STENT TO LAD-COMPLETED PLAVIX THERAPY 04/01/16 2 PAVAN) Cholecystectomy: Yes Lung Surgery: No Neurologic Surgery: No Orthopedic Surgery: Yes (04/01/16 left knee replacement) - Suicide/Smoking/Psychosocial Hx Smoking History: Current every day smoker Have you smoked in the past 12 months: Yes Number of Cigarettes Smoked Daily: 5 If you are a former smoker, when did you quit?: 2 months Cigars Per Day: 0 Information on smoking cessation initiated: No 'Breaking Loose' booklet given: 05/10/17 Hx Alcohol Use: No Drug/Substance Use Hx: No Substance Use Type: None Hx Substance Use Treatment: No <Billy Prieto - Last Filed: 06/29/17 00:56> - Past Medical History Allergies/Adverse Reactions: Allergies Allergy/AdvReac Type Severity Reaction Status Date / Time No Known Allergies Allergy Verified 06/28/17 21:56 Home Medications: Ambulatory Orders Gabapentin [Neurontin] 600 mg PO BID 07/06/16 Magnesium 200 mg PO DAILY PRN 07/06/16 Dolutegravir Sodium [Tivicay] 50 mg PO DAILY #30 tablet 04/04/17 Emtricitabine/Tenofov Alafenam [Descovy 200-25 mg Tablet (Nf)] 1 each PO HS #30 tablet 04/04/17 Lisinopril 5 mg PO HS #30 tablet 04/04/17 Loratadine [Claritin -] 10 mg PO DAILY PRN #30 tablet 04/04/17 Pravastatin Sodium [Pravachol -] 40 mg PO HS #30 tablet 04/04/17 Cyclobenzaprine HCl [Flexeril -] 10 mg PO TID 04/26/17 Montelukast Na [Singulair -] 10 mg PO HS 04/26/17 Clopidogrel Bisulfate [Plavix -] 75 mg PO DAILY #30 tablet 04/27/17 Aspirin [Aspirin EC] 81 mg PO DAILY 05/02/17 Insulin Glargine,Hum.rec.anlog [Toujeo Solostar] 35 unit SQ HS 05/02/17 Insulin Lispro [Humalog Kwikpen U-200] 15 unit SQ TID #7 ea 05/02/17 Omeprazole 20 mg PO BID #60 tablet. 06/01/17 Clonazepam [Klonopin -] 0.5 mg PO TID #90 tablet MDD 1.5mg 06/06/17 Escitalopram Oxalate [Lexapro -] 20 mg PO HS #30 tablet 06/06/17 Mirtazapine [Remeron -] 30 mg PO HS #30 tablet 06/06/17 Zolpidem Tartrate [Ambien] 5 mg PO HS #30 tab MDD 1 06/06/17 Sulfamethoxazole/Trimethoprim [Bactrim Ds Tablet] 1 each PO BID #20 tablet 06/29 Tramadol HCl [Ultram -] 50 mg PO Q6H #20 tablet MDD 4 06/29/17 Review of Systems - Review of Systems Able to Perform ROS?: Yes Comments:: 06/28/17 22:59 CONSTITUTIONAL: Absent: fever, chills, diaphoresis, generalized weakness, malaise, loss of appetite HEENT: Absent: rhinorrhea, nasal congestion, throat pain, throat swelling, difficulty swallowing, mouth swelling, ear pain, eye pain CARDIOVASCULAR: Absent: chest pain, syncope, palpitations, irregular heart rate, peripheral edema RESPIRATORY: Absent: cough, shortness of breath, dyspnea with exertion, orthopnea, wheezing, stridor, hemoptysis GASTROINTESTINAL: Absent: abdominal distension, nausea, vomiting, diarrhea, constipation, melena, hematochezia GENITOURINARY: Absent: dysuria, frequency, urgency, hesitancy, hematuria, flank pain, genital pain MUSCULOSKELETAL: Present: (+) bilateral calf pain, (+) right upper extremity pain, (+) back pain Absent: joint swelling SKIN: Absent: rash, itching, pallor HEMATOLOGIC/IMMUNOLOGIC: Absent: easy bleeding, easy bruising, lymphadenopathy, frequent infections ENDOCRINE: Absent: unexplained weight gain, unexplained weight loss, heat intolerance, cold intolerance NEUROLOGIC: Absent: headache, unsteady gait, seizure, mental status changes, bladder or bowel incontinence PSYCHIATRIC: Absent: anxiety, depression, suicidal or homicidal ideation, hallucinations. <Rosenda Montejo - Last Filed: 06/28/17 23:53> *Physical Exam - Vital Signs Last Vital Signs Temp Pulse Resp BP Pulse Ox 97.6 F 109 H 22 93/71 100 06/28/17 22:00 06/28/17 22:00 06/28/17 22:00 06/28/17 22:00 06/28/17 22:00 - Physical Exam Comments: 06/28/17 22:59 GENERAL: Well developed, well nourished. Awake and alert. No acute distress. HEENT: Normocephalic, atraumatic. PERRLA, EOMI. No conjunctival pallor. Sclera are non- icteric. Moist mucous membranes. Oropharynx is clear. NECK: Supple. Full ROM. No JVD. Carotid pulses 2+ and symmetric, without bruits. No thyromegaly. No lymphadenopathy. CARDIOVASCULAR: Regular rate and rhythm. No murmurs, rubs, or gallops. Distal pulses are 2+ and symmetric. PULMONARY: (+) Diminished breath sounds, (+) coarse wheezing at the right base. No rales or rhonchi. ABDOMINAL: Soft. Non-tender. Non-distended. No rebound or guarding. No organomegaly. Normoactive bowel sounds. MUSCULOSKELETAL Normal range of motion at all joints. No bony deformities. No CVA tenderness. EXTREMITIES: No cyanosis. No clubbing. No edema. SKIN: Warm and dry. Normal capillary refill. No rashes. No jaundice. NEUROLOGICAL: Alert, awake, appropriate. Cranial nerves 2-12 intact. No deficits to light touch and temperature in face, upper extremities and lower extremities. No motor deficits in the in face, upper extremities and lower extremities. Normoreflexic in the upper and lower extremities. Normal speech. Toes are down- going bilaterally. Gait is normal without ataxia. PSYCHIATRIC: Cooperative. Good eye contact. Appropriate mood and affect. <Rosenda Montejo - Last Filed: 06/28/17 23:53> - Vital Signs Last Vital Signs Temp Pulse Resp BP Pulse Ox 97.6 F 109 H 22 93/71 100 06/28/17 22:00 06/28/17 22:00 06/28/17 22:00 06/28/17 22:00 06/28/17 22:00 <Billy Prieto - Last Filed: 06/29/17 00:56> ED Treatment Course - LABORATORY CBC & Chemistry Diagram: 06/28/17 23:00 06/28/17 23:00 <Rosenda Monetjo - Last Filed: 06/28/17 23:53> - LABORATORY CBC & Chemistry Diagram: 06/28/17 23:00 06/28/17 23:00 <Billy Prieto - Last Filed: 06/29/17 00:56> Medical Decision Making - Medical Decision Making 06/29/17 00:53 Dr. Prieto: The scribe's documentation has been prepared under my direction and personally reviewed by me in its entirery. I confirm that the note above accurately reflects all work, treatment, procedures, and medical decision making performed by me. Pt presents with possible new onset diabetic neuropathy. Pt with bronchitis as well. Pt will be discharged. Rx Bactrim DS. Rx Tramadol 50mg. Pt advised to follow up with her pcp as soon as possible. <Billy Prieto - Last Filed: 06/29/17 00:56> *DC/Admit/Observation/Transfer - Attestations Scribe Attestion: 06/28/17 23:00 Documentation prepared by Rosenda Montejo, acting as medical assisting instructor for Billy Prieto MD/DO. 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 Avoid smoking. TAke medications as directed.
[2017-06-28] MEDS ORDERED: traMADol HCL 50 MG TABLET PO ONE (22:31)
[2017-06-28] MEDS ORDERED: ALBUTEROL SO4 2.5/IPRATROPIUM 0.5 INH SOL 3 ML VIAL.NEB. NEB ONE ×2 (22:35→23:54)
[2017-06-28] MEDS ORDERED: traMADol HCL 50 MG TABLET ONE (22:49)
[2017-06-28 23:18] LABS: BASO % 0.4 % (0-2.0); EOS # 0.1 #; EOS % 1.6 % (0-4.5); LYMPH # 2.9; MCH 27.3 pg (25.7-33.7); MEAN CELL VOLUME 82.9 fl (80-96); MEAN PLT VOLUME 9.8 fl (7.5-11.1); MONO # 0.4 #; NEUT # 4.4 #; NEUT % 56.3 % (42.8-82.8); PLATELET COUNT 173 K/MM3 (134-434); RDW 14.8 % (11.6-15.6); WHITE BLOOD COUNT 7.9 K/mm3 (4.0-10.0)
[2017-06-28 23:36] LABS: URINE APPEARANCE SLCLOUDY; URINE BILIRUBIN NEGATIVE (NEGATIVE); URINE BLOOD NEGATIVE (NEGATIVE); URINE COLOR YELLOW; URINE GLUCOSE (UA) 3+ (NEGATIVE); URINE KETONE NEGATIVE (NEGATIVE); URINE LEUK ESTERASE TRACE (NEGATIVE); URINE NITRITE NEGATIVE (NEGATIVE); URINE PROTEIN NEGATIVE (NEGATIVE); URINE UROBILINOGEN NEGATIVE mg/dL (0.2-1.0)
[2017-06-28 23:41] LABS: INR 0.97 (0.82-1.09)
[2017-06-28 23:47] LABS: URINE HYALINE CAST 26 /lpf; URINE MUCUS RARE; URINE RBC 2 /hpf (0-3); URINE WBC 3 /hpf (3-5)
[2017-06-29 00:32] LABS: ALBUMIN 3.4 g/dl (3.4-5.0); ANION GAP 13 (8-16); BILIRUBIN,TOTAL 0.3 mg/dL (0.2-1.0); CO2 25 mmol/L (21-32); CREATININE 1.1 mg/dL (0.55-1.02); GLUCOSE,RANDOM 118 mg/dL (74-106); TOT PROT 7.3 g/dl (6.4-8.2)
[2017-06-29 00:36] LABS: ALK PHOS 180 U/L (45-117); CPK 159 IU/L (26-192)
[2017-06-29 00:40] LABS: MAGNESIUM 2.1 mg/dL (1.8-2.4); SGOT/AST 19 U/L (15-37); SGPT/ALT 25 U/L (12-78)
[2017-06-29 00:41] LABS: TROPONIN I < 0.02 ng/ml (0.00-0.05)
[2017-06-29] MEDS ORDERED: POTASSIUM CHLORIDE TABS 20 MEQ TABLET.ER (FP) PO ONE ×2 (00:44→00:59)
[2017-06-29] MEDS ORDERED: SULFAMETHOXAZOLE/TRIMETHOPRIM 800MG/160MG D.S. TABLET PO ONE (00:46)
[2017-06-29] MEDS ORDERED: SULFAMETHOXAZOLE/TRIMETHOPRIM 800MG/160MG D.S. TABLET ONE (00:59)
[2017-06-29 15:02] LABS: URINE LEUK ESTERASE Negative (NEGATIVE)
--- NOTE | 2017-06-29 16:35 | PN ---
HC Provider Note Provider Note: 06/29/17, 4:30p - called pt for f/u, s/p ER visit 06/28/17 for muscle cramps and bronchitis. States she is feeling better, still weak in her legs; cough is better; pt notes she has a f/u appt on 07/04/16. Pt has missed her neuro appt, needs to reschedule. Requested pt to bring all her meds to her next appt.
== END 2017-06-29 01:13 | disposition home or self-care (01) ==
LOC: JER 21:51
PROC: 3E0F7GC Introduction of Other Therapeutic Substance into Respiratory Tract, Via Natural or Artificial Opening (ICD-10-PCS; principal; 2017-06-28)
DX: J20.9 Acute bronchitis, unspecified (principal); E10.49 Type 1 diabetes mellitus with other diabetic neurological complication; Z79.4 Long term (current) use of insulin; I25.10 Atherosclerotic heart disease of native coronary artery without angina pectoris; I10 Essential (primary) hypertension; Z95.5 Presence of coronary angioplasty implant and graft; I73.89 Other specified peripheral vascular diseases; Z95.828 Presence of other vascular implants and grafts; Z21 Asymptomatic human immunodeficiency virus [HIV] infection status
CPT/HCPCS: 36415; 71020-TC; 80053; 81003; 81015; 82550; 82553; 83690; 83735; 84484; 85025; 85610; 99282-25

== ENCOUNTER 2017-07-09 00:12 | Inpatient (IN) | payer OTHER ==
[2017-07-09] MEDS ORDERED: SODIUM CHLORIDE 0.9% 500 ML INFUS.BAG IV ONE (01:41)
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
[2017-07-09 02:28] LABS: BASO % 0.7 % (0-2.0); HEMATOCRIT 39.3 % (32.4-45.2); HEMOGLOBIN 12.7 GM/dL (10.7-15.3); LYMPH % 38.5 % (8-40); MCHC 32.3 g/dl (32.0-36.0); MEAN CELL VOLUME 83.6 fl (80-96); MEAN PLT VOLUME 10.1 fl (7.5-11.1); MONO % 6.2 % (3.8-10.2); NEUT % 52.6 % (42.8-82.8); PLATELET COUNT 146 K/MM3 (134-434); WHITE BLOOD COUNT 7.5 K/mm3 (4.0-10.0)
[2017-07-09 02:58] LABS: ALBUMIN 3.3 g/dl (3.4-5.0); ANION GAP 10 (8-16); BILIRUBIN,TOTAL 0.2 mg/dL (0.2-1.0); BLOOD UREA NITROGEN 16 mg/dL (7-18); CHLORIDE 97 mmol/L (98-107); CO2 25 mmol/L (21-32); CREATININE 1.3 mg/dL (0.55-1.02); GLUCOSE,RANDOM 284 mg/dL (74-106); PROTHROMBIN TIME (PATIENT) 11.3 SEC (9.98-11.88); SGOT/AST 19 U/L (15-37); SODIUM 132 mmol/L (136-145); TOT PROT 7.6 g/dl (6.4-8.2)
[2017-07-09 03:05] LABS: ALK PHOS 176 U/L (45-117); SGPT/ALT 28 U/L (12-78)
[2017-07-09] MEDS ORDERED: HEPARIN NA (PORCINE) 5,000 UNITS/ML 1ML VIAL IVPUSH ONE (04:40)
[2017-07-09] MEDS ORDERED: HEPARIN - 25,000 UNIT in SODIUM CHLORIDE 495 ML IV SCH (04:45)
--- NOTE | 2017-07-09 04:57 | PN ---
Teaching Attending Note Name of Resident: Andrea Davila ATTENDING PHYSICIAN STATEMENT I saw and evaluated the patient. I reviewed the resident's note and discussed the case with the resident. I agree with the resident's findings and plan as documented. SUBJECTIVE: 57 F with pmhx of HTN, HLD, CAD, LKR, (bilateral SA stents L. Apr and R. 05/18) venous insufficiency, and smoking (quit 2 weeks ago) who presents with LLE pain and swelling X2 days. She went to [facility] for "spasms," in her legs and had MRI done, of which she has the results at home. She was diagnosed with "sciatica," States she has felt worse over past two days, with increased pain. Pain has improved now. No fevers or chills. No chest pain or pressure. No N/V/ D. Pt. has not been taking Plavix and hasn OBJECTIVE: Physical: VS: Vital Signs Period Temp Pulse Resp BP Sys/Cota Pulse Ox Last 24 Hr 97.9 F 94 20 89/62 98 GEN: NAD, Resting in bed, AA0x3 HEENT: NCAT, PERRL, throat withour erythema or exudates CARD: RRR S1, S2 RESP: CTAB ABD: BSx4, NTD to palpation EXT: Decreased Pulses L DP>R, Left foot cold to palpation, R. foot and leg tender to palpation. Non-Pitting edema. CBCD WBC 7.5 K/mm3 (4.0-10.0) 07/09/17 02:00 RBC 4.70 M/mm3 (3.60-5.2) 07/09/17 02:00 Hgb 12.7 GM/dL (10.7-15.3) 07/09/17 02:00 Hct 39.3 % (32.4-45.2) 07/09/17 02:00 MCV 83.6 fl (80-96) 07/09/17 02:00 MCHC 32.3 g/dl (32.0-36.0) 07/09/17 02:00 RDW 15.0 % (11.6-15.6) 07/09/17 02:00 Plt Count 146 K/MM3 (134-434) 07/09/17 02:00 MPV 10.1 fl (7.5-11.1) 07/09/17 02:00 CMP Sodium 132 mmol/L (136-145) L 07/09/17 02:00 Potassium 4.0 mmol/L (3.5-5.1) 07/09/17 02:00 Chloride 97 mmol/L (98-107) L 07/09/17 02:00 Carbon Dioxide 25 mmol/L (21-32) 07/09/17 02:00 Anion Gap 10 (8-16) 07/09/17 02:00 BUN 16 mg/dL (7-18) 07/09/17 02:00 Creatinine 1.3 mg/dL (0.55-1.02) H 07/09/17 02:00 Creat Clearance w eGFR 42.53 (>60) 07/09/17 02:00 Random Glucose 284 mg/dL (74-106) H D 07/09/17 02:00 Calcium 9.0 mg/dL (8.5-10.1) 07/09/17 02:00 Total Bilirubin 0.2 mg/dL (0.2-1.0) D 07/09/17 02:00 AST 19 U/L (15-37) D 07/09/17 02:00 ALT 28 U/L (12-78) 07/09/17 02:00 Alkaline Phosphatase 176 U/L (45-117) H 07/09/17 02:00 Total Protein 7.6 g/dl (6.4-8.2) 07/09/17 02:00 Albumin 3.3 g/dl (3.4-5.0) L 07/09/17 02:00 ART DUPLE: Occlusion of L. Polpiteal Artery Stent with minimal flow visualized in posterior tibial artery CTA: PENDING EKG- PENDING Home Medications Medication Instructions Recorded Gabapentin [Neurontin] 600 mg PO BID 07/06/16 Magnesium 200 mg PO DAILY PRN 07/06/16 Dolutegravir Sodium [Tivicay] 50 mg PO DAILY #30 tablet 04/04/17 Emtricitabine/Tenofov Alafenam 1 each PO HS #30 tablet 04/04/17 [Descovy 200-25 mg Tablet (Nf)] Lisinopril 5 mg PO HS #30 tablet 04/04/17 Loratadine [Claritin -] 10 mg PO DAILY PRN #30 tablet 04/04/17 Pravastatin Sodium [Pravachol -] 40 mg PO HS #30 tablet 04/04/17 Cyclobenzaprine HCl [Flexeril -] 10 mg PO TID 04/26/17 Montelukast Na [Singulair -] 10 mg PO HS 04/26/17 Clopidogrel Bisulfate [Plavix -] 75 mg PO DAILY #30 tablet 04/27/17 Aspirin [Aspirin EC] 81 mg PO DAILY 05/02/17 Insulin Glargine,Hum.rec.anlog 35 unit SQ HS 05/02/17 [Toujeo Solostar] Insulin Lispro [Humalog Kwikpen 15 unit SQ TID #7 ea 05/02/17 U-200] Omeprazole 20 mg PO BID #60 tablet. 06/01/17 Sulfamethoxazole/Trimethoprim 1 each PO BID #20 tablet 06/29/17 [Bactrim Ds Tablet] Tramadol HCl [Ultram -] 50 mg PO Q6H #20 tablet MDD 4 06/29/17 Budesonide/Formeterol Fumarate 1 puff IH BID 07/04/17 [SYMBICORT 160/4.5mcg -] Clonazepam [Klonopin -] 0.5 mg PO TID #90 tablet MDD 1.5mg 07/04/17 Escitalopram Oxalate [Lexapro -] 20 mg PO HS #30 tablet 07/04/17 Miconazole/Cleanser 17 On Wipe 1 each VG HS #1 kit 07/04/17 [Monistat 3 Combo Pack] Mirtazapine [Remeron -] 30 mg PO HS #30 tablet 07/04/17 Olopatadine HCl [Pataday] 1 drop OP DAILY #2.5 ml 07/04/17 Oxybutynin Chloride [Oxybutynin 10 mg PO DAILY 07/04/17 Chloride ER] Terconazole [Terazol 7 (Nf)] 1 applic PV HS #7 cream.appl 07/04/17 Zolpidem Tartrate [Ambien] 5 mg PO HS #30 tab MDD 1 07/04/17 Fenofibrate Nanocrystallized 48 mg PO DAILY #30 tablet 07/06/17 [Fenofibrate] ASSESSMENT AND PLAN: 57 F with pmhx of HTN, HLD, CAD, LKR, CAD s/p Stents, venous insufficiency, and smoking who presents with LLE pain, found to have occlusion of L. Polipteal Artery Stent and minimal flow in Posterior Tibial Artery 1.) Occlusion of L. Polipiteal Artery Stent - Hep. gtt - Vascular consulted and spoken to by ED - NPO - Type & Screen, coags - FU results of ABD CTA 2.) BRENDAN ?CKD - BAse Cr. 1.1 - Hydrate gentle - Trend - Renally Dose Meds 3.) DM - DM - FS - RAISS - Resume Lantus in PM, if eating 4.) HTN - Currently Hypotensive - Hold ALL HTN meds 5.) HIV - C/W Giancarlo and [facility] Place in Med-Sx
--- NOTE | 2017-07-09 05:20 | HP ---
CHIEF COMPLAINT: BL leg pain, swelling PCP: Dr. Jossie Nix HISTORY OF PRESENT ILLNESS: Pt is 57 yo woman w/ pmh of HIV (CV4 809, VL 80 on 07/04; on HAART), DM2, HTN, CAD (s/p cardiac stent 04/15), BL SFA stents (04/17, 05/18), brought in by daughter due to BL LE pain, swelling and inability to ambulate for last two days. Pt noted BL crampy leg pain and spasm one week ago, came to ED 06/28 and was discharged w/ refill of tramadol for pain control. Pt was again seen in [facility] ED on 07/05-07/06 for cramping pain in L leg and was diagnosed with sciatica and again discharged. Since then, pt reports continued BL crampy leg pain, anterior shank on L and deep calf pain in R, as well as numbness in L foot and BL edema, which began yesterday. Pt received R and L SFA stents (04/17 and 05/18) last year due to BL occlusion, however missed f/u appointments with Dr. Guzmán 2/2 scheduling issues. She was discharged on ASA/plavix, however stopped taking her plavix in Dec after her one month supply ran-out. Pt denies any STONE/lightheadness, CP, SOB, cough, palpitations, abdominal pain, N/V, rashes or other neuro symptoms. Per pt, she has never been diagnosed with PFO or afib before. Pt is ambulatory at baseline, but has been more sedentary of late. ER course was notable for: (1)D-dimer 313 (2)Arterial doppler with L popliteal artery occlusion (3) Recent Travel: None PAST MEDICAL HISTORY: BL SFA stents (04/2017 and 05/2017) HTN HLD HIV (CD4 809, VL 80; on HAART on 07/04/2016) Nephrolithiasis Anxiety GERD PUD CAD DM2 PAST SURGICAL HISTORY: Cholecystectomy L TKR (04/01/16) PTCA (04/04/2015) R achilles tendon repair Social History: Smoking: Former smoker, 5 cigs/day. Quit 2 weeks ago. 39 pack years Alcohol: Denies Drugs: Denies Family History: Multiple arterial/venous clots in family per pt; unable to give further details Mother with diabetes Father with heart disease Allergies No Known Allergies Allergy (Verified 07/09/17 00:45) HOME MEDICATIONS: Home Medications Medication Instructions Recorded Gabapentin [Neurontin] 600 mg PO BID 07/06/16 Magnesium 200 mg PO DAILY PRN 07/06/16 Dolutegravir Sodium [Tivicay] 50 mg PO DAILY #30 tablet 04/04/17 Emtricitabine/Tenofov Alafenam 1 each PO HS #30 tablet 04/04/17 [Descovy 200-25 mg Tablet (Nf)] Lisinopril 5 mg PO HS #30 tablet 04/04/17 Loratadine [Claritin -] 10 mg PO DAILY PRN #30 tablet 04/04/17 Pravastatin Sodium [Pravachol -] 40 mg PO HS #30 tablet 04/04/17 Cyclobenzaprine HCl [Flexeril -] 10 mg PO TID 04/26/17 Montelukast Na [Singulair -] 10 mg PO HS 04/26/17 Clopidogrel Bisulfate [Plavix -] 75 mg PO DAILY #30 tablet 04/27/17 Aspirin [Aspirin EC] 81 mg PO DAILY 05/02/17 Insulin Glargine,Hum.rec.anlog 35 unit SQ HS 05/02/17 [Toujeo Solostar] Insulin Lispro [Humalog Kwikpen 15 unit SQ TID #7 ea 05/02/17 U-200] Omeprazole 20 mg PO BID #60 tablet. 06/01/17 Sulfamethoxazole/Trimethoprim 1 each PO BID #20 tablet 06/29/17 [Bactrim Ds Tablet] Tramadol HCl [Ultram -] 50 mg PO Q6H #20 tablet MDD 4 06/29/17 Budesonide/Formeterol Fumarate 1 puff IH BID 07/04/17 [SYMBICORT 160/4.5mcg -] Clonazepam [Klonopin -] 0.5 mg PO TID #90 tablet MDD 1.5mg 07/04/17 Escitalopram Oxalate [Lexapro -] 20 mg PO HS #30 tablet 07/04/17 Miconazole/Cleanser 17 On Wipe 1 each VG HS #1 kit 07/04/17 [Monistat 3 Combo Pack] Mirtazapine [Remeron -] 30 mg PO HS #30 tablet 07/04/17 Olopatadine HCl [Pataday] 1 drop OP DAILY #2.5 ml 07/04/17 Oxybutynin Chloride [Oxybutynin 10 mg PO DAILY 07/04/17 Chloride ER] Terconazole [Terazol 7 (Nf)] 1 applic PV HS #7 cream.appl 07/04/17 Zolpidem Tartrate [Ambien] 5 mg PO HS #30 tab MDD 1 07/04/17 Fenofibrate Nanocrystallized 48 mg PO DAILY #30 tablet 07/06/17 [Fenofibrate] REVIEW OF SYSTEMS CONSTITUTIONAL: Absent: fever, chills, diaphoresis, generalized weakness, malaise, loss of appetite, weight change HEENT: Absent: rhinorrhea, nasal congestion, throat pain, throat swelling, difficulty swallowing, mouth swelling, ear pain, eye pain, visual changes CARDIOVASCULAR: Absent: chest pain, syncope, palpitations, irregular heart rate, lightheadedness , peripheral edema RESPIRATORY: Absent: cough, shortness of breath, dyspnea with exertion, orthopnea, wheezing, stridor, hemoptysis GASTROINTESTINAL: Absent: abdominal pain, abdominal distension, nausea, vomiting, diarrhea, constipation, melena, hematochezia GENITOURINARY: Absent: dysuria, frequency, urgency, hesitancy, hematuria, flank pain, genital pain MUSCULOSKELETAL: BL LE pain in legs Absent: arthralgia, joint swelling, back pain, neck pain SKIN: Absent: rash, itching, pallor HEMATOLOGIC/IMMUNOLOGIC: Absent: easy bleeding, easy bruising, lymphadenopathy, frequent infections ENDOCRINE: Absent: unexplained weight gain, unexplained weight loss, heat intolerance, cold intolerance NEUROLOGIC: L foot numb, BL paresthesias in LEs Absent: headache, dizziness, unsteady gait, seizure, mental status changes, bladder or bowel incontinence PHYSICAL EXAMINATION Vital Signs - 24 hr 07/09/17 00:45 Temperature 97.9 F Pulse Rate 94 H Respiratory 20 Rate Blood Pressure 89/62 O2 Sat by Pulse 98 Oximetry (%) GENERAL: Awake, alert, and fully oriented, in no acute distress. HEAD: Normal with no signs of trauma. EYES: Pupils equal, round and reactive to light, extraocular movements intact, sclera anicteric, conjunctiva clear. No lid lag. EARS, NOSE, THROAT: Ears normal, nares patent, oropharynx clear without exudates. Moist mucous membranes. NECK: Normal range of motion, supple without lymphadenopathy, JVD, or masses. LUNGS: Breath sounds equal, clear to auscultation bilaterally. No wheezes, and no crackles. No accessory muscle use. HEART: Regular rate and rhythm, normal S1 and S2 without murmur, rub or gallop. ABDOMEN: Soft, nontender, not distended, normoactive bowel sounds, no guarding, no rebound, no masses. No hepatomegaly or splenomegaly. No bruit appreciated. MUSCULOSKELETAL: R calf pain w/ dorsiflexion and palpation. L anterior shank pain. Normal range of motion at all joints. No bony deformities or tenderness. No CVA tenderness. UPPER EXTREMITIES: 2+ pulses, warm, well-perfused. No cyanosis. No clubbing. No peripheral edema. LOWER EXTREMITIES: Unable to palpate DP, PT pulses BL. L foot cool to touch, cyanotic. Calf tenderness in R leg, worsened by dorsiflexion. 1+ peripheral edema BL to ankles. NEUROLOGICAL: Cranial nerves II-XII intact. Normal speech. Gait not evaluated. R foot numb to light touch on dorsal/plantar surface, decreased sensation to light touch on anterior shank. Preserved sensation to light touch throughout R leg and above knee on L. PSYCHIATRIC: Cooperative. Good eye contact. Appropriate mood and affect. 5/5 motor strength in all extremities. Laboratory Results - last 24 hr CBC, BMP 07/09/17 02:00 07/09/17 02:00 07/09/17 07/09/17 07/09/17 02:00 02:00 02:00 WBC 7.5 RBC 4.70 Hgb 12.7 Hct 39.3 MCV 83.6 MCH 27.0 MCHC 32.3 RDW 15.0 Plt Count 146 MPV 10.1 Neutrophils % 52.6 Lymphocytes % 38.5 Monocytes % 6.2 Eosinophils % 2.0 Basophils % 0.7 PT with INR INR PTT (Actin FS) 26.0 L D-Dimer 313 H Sodium 132 L Potassium 4.0 Chloride 97 L Carbon Dioxide 25 Anion Gap 10 BUN 16 Creatinine 1.3 H Creat Clearance w eGFR 42.53 Random Glucose 284 H D Calcium 9.0 Total Bilirubin 0.2 D AST 19 D ALT 28 Alkaline Phosphatase 176 H Total Protein 7.6 Albumin 3.3 L Blood Type Antibody Screen 07/09/17 07/09/17 02:00 02:00 WBC RBC Hgb Hct MCV MCH MCHC RDW Plt Count MPV Neutrophils % Lymphocytes % Monocytes % Eosinophils % Basophils % PT with INR 11.30 INR 1.00 PTT (Actin FS) D-Dimer Sodium Potassium Chloride Carbon Dioxide Anion Gap BUN Creatinine Creat Clearance w eGFR Random Glucose Calcium Total Bilirubin AST ALT Alkaline Phosphatase Total Protein Albumin Blood Type B POSITIVE Antibody Screen Negative No Micro EKG - NSR, NAD, Rate 95, QTC 525, no ischemic changes BL LE doppler 07/09 - IMPRESSION: Occlusion of left popliteal artery stent with minimal flow visualized in the posterior tibial artery Abdominal/pelvic CTA w/ contrast - pending ASSESSMENT/PLAN: Pt is 57 yo woman w/ pmh of HIV (CV4 809, VL 80 on 07/04; on HAART), DM2, HTN, CAD (s/p cardiac stent 04/15), BL SFA stents (04/17, 05/18), brought in by daughter due to BL LE pain, swelling and inability to ambulate for last two days. #Occlusion of L popliteal artery stent - BL arterial duplex notable for occlusion of L pop artery, D-dimer elevated - Heparin gtt - Vascular consulted, Dr. Guzmán aware; will see pt in AM - NPO - type & screen, coags - f/u Abdominal/pelvic CTA results - Neuro/pulse checks Q2H #BRENDAN? - Baseline Cr 1.0; 1.3 on current admission - Avoid nephrotoxic agents - gentle hydration - Trend Cr - Renal dosing for all meds - Consider mucomyst for renal protection from contrast load #DM2 - A1C 13.3 on 07/04; BGM 284 on admission - BGM q4h - ISS - If pt w/ regular diet after procedure, restart home lantus 35u qHS #HTN - hypotensive to 80s systolic on admission - Hold home HTN meds #HIV - CV4 809, VL 80 on 07/04; on HAART - C/W Tivicay and Descovy - f/u as outpt for further management w/ PCP #CAD - PTCA on 04/15 - ASA, plavix on discharge #HLD - Triglycerides 1264, Cholesterol 278 on 07/04 - Statin - Consider fibrate PPX Heparin gtt PPI FEN NS 75cc/hr Daily BMPs, trend Cr NPO until procedure Admit to Med-Surg Plan discussed with attending, Dr. Isauro Davila, PGY1 Visit type - Emergency Visit Emergency Visit: Yes Care time: The patient presented to the Emergency Department on the above date and was hospitalized for further evaluation of their emergent condition. - New Patient This patient is new to me today: Yes Date on this admission: 07/09/17 - Critical Care Critical Care patient: No
[2017-07-09] MEDS ORDERED: HEPARIN NA (PORCINE) 5,000 UNITS/ML 1ML VIAL ONE ×2 (05:23→10:54)
[2017-07-09] MEDS ORDERED: HEPARIN INFUSION - 0 UNITS/0 ML INFUS.BAG IVPB ONE (05:24)
[2017-07-09] MEDS ORDERED: SODIUM CHLORIDE 500 ML IV STA (05:38)
[2017-07-09] MEDS ORDERED: SODIUM CHLORIDE 1,000 ML IV SCH (05:45)
[2017-07-09] MEDS ORDERED: morphine CARPU-JECT 10 MG/1 ML DISP.SYRIN IVPUSH PRN (06:16)
[2017-07-09] MEDS: SODIUM CHLORIDE 1,000 ML IV SCH ×3 (06:35→21:30)
[2017-07-09] MEDS ORDERED: LORATADINE 10 MG TABLET PO PRN (06:47)
[2017-07-09] MEDS ORDERED: PATIENT'S OWN MEDICATION (NON-FORMULARY) (Magnesium [Magnesium] 200 MG) PO PRN (06:47)
[2017-07-09] MEDS ORDERED: INSULIN (NOVOLOG MIX 70/30) 100 UNITS/ML MDV SQ ONE (06:50)
[2017-07-09] MEDS ORDERED: morphine CARPU-JECT 10 MG/1 ML DISP.SYRIN ONE ×2 (07:00→11:15)
[2017-07-09] MEDS ORDERED: morphine CARPU-JECT 2 MG/1 ML DISP.SYRIN IVPUSH ONE (07:00)
[2017-07-09] MEDS: INSULIN SLIDING SCALE (NOVOLOG) 1 VIAL SQ SCH ×3 (07:06→23:33)
[2017-07-09] MEDS ORDERED: MAGNESIUM OXIDE 400 MG TABLET (FP) PO PRN (07:43)
--- NOTE | 2017-07-09 09:45 | PN ---
Progress Note (short form) - Note Progress Note: Vascular Surgery Pt seen and examined. Pt had LLE angioplasty with sfa/pop artery stent placement in may. In jun pt had right lower ext angioplasty. Pt not taking plavix. Pt did not stop smoking after any of the procedures. Pt claims she stopped smoking 2 weeks ago. Now comes into ER with numbness and pain in both legs. Pt claims she has trouble walking. CTA done last night shows LLE SFA occlusion including the stent. Right SFA looks occluded as well. Not officially read . Will do LLE angiogram today at 1pm. Pt on IV heparin. Gabriel Guzmán DO Problem List - Problems (1) Ischemia of both lower extremities Code(s): I99.8 - OTHER DISORDER OF CIRCULATORY SYSTEM
[2017-07-09] MEDS ORDERED: PATIENT'S OWN MEDICATION (NON-FORMULARY) (Dolutegravir Sodium 50 MG) PO SCH (10:00)
[2017-07-09] MEDS ORDERED: CLOPIDOGREL BISULFATE 75 MG TABLET (FP) PO SCH (10:00)
[2017-07-09 10:05] LABS: HEMATOCRIT 36.2 % (32.4-45.2); HEMOGLOBIN 11.7 GM/dL (10.7-15.3); MCH 26.7 pg (25.7-33.7); MCHC 32.2 g/dl (32.0-36.0); MEAN PLT VOLUME 9.7 fl (7.5-11.1); PLATELET COUNT 129 K/MM3 (134-434); RBC 4.36 M/mm3 (3.60-5.2); RDW 15.1 % (11.6-15.6); WHITE BLOOD COUNT 6.1 K/mm3 (4.0-10.0)
[2017-07-09] MEDS: GABAPENTIN 300 MG CAPSULE (FP) PO SCH ×2 (10:11→23:34)
[2017-07-09] MEDS: BUDESONIDE/FORMETEROL FUMARATE 160/4.5 mcg INHALER IH SCH ×2 (10:12→23:34)
[2017-07-09] MEDS: PANTOPRAZOLE 20 MG TABLET (FP) PO SCH ×2 (10:12→23:34)
[2017-07-09 10:21] LABS: INR 1.01 (0.82-1.09); PROTHROMBIN TIME (PATIENT) 11.4 SEC (9.98-11.88)
[2017-07-09 10:39] LABS: ALBUMIN 2.7 g/dl (3.4-5.0); ALK PHOS 143 U/L (45-117); ANION GAP 7 (8-16); BILIRUBIN,TOTAL 0.2 mg/dL (0.2-1.0); BLOOD UREA NITROGEN 11 mg/dL (7-18); CALCIUM 7.9 mg/dL (8.5-10.1); CHLORIDE 107 mmol/L (98-107); CO2 22 mmol/L (21-32); GLUCOSE,RANDOM 171 mg/dL (74-106); SGPT/ALT 19 U/L (12-78); SODIUM 136 mmol/L (136-145); TOT PROT 6.3 g/dl (6.4-8.2)
[2017-07-09 10:41] LABS: SGOT/AST 19 U/L (15-37)
[2017-07-09 12:20] VITALS: BMI 29.2
[2017-07-09] MEDS ORDERED: ceFAZolin SODIUM 1 GM VIAL IVPB ONE (12:30)
[2017-07-09] MEDS ORDERED: LIDOCAINE HCL 1%, 10 MG/ML (50 mL VIAL) IJ ONE (12:38)
--- NOTE | 2017-07-09 12:44 | EKG ---
Test Reason : Blood Pressure : / mmHG Vent. Rate : 095 BPM Atrial Rate : 095 BPM P-R Int : 146 ms QRS Dur : 120 ms QT Int : 418 ms P-R-T Axes : 065 083 055 degrees QTc Int : 525 ms NORMAL SINUS RHYTHM BORDERLINE ECG WHEN COMPARED WITH ECG OF 25-MAY-2017 16:34, NO SIGNIFICANT CHANGE WAS FOUND Confirmed by RAVINDER OLIVERA MD ([id number]) on 07/09/2017 12:43:55 PM Referred By: Confirmed By:RAVINDER OLIVERA MD
[2017-07-09] MEDS ORDERED: ALTEPLASE (CATHFLO) 25 MG in SODIUM CHLORIDE 250 ML CVP ONE (14:15)
[2017-07-09] MEDS ORDERED: HEPARIN SOD,PORK IN 0.45% NACL 25,000 UNITS/500 ML INFUS.BAG IVPB SCH (14:15)
[2017-07-09] MEDS ORDERED: ONDANSETRON 4 MG/2 ML VIAL IVPUSH PRN (14:29)
[2017-07-09] MEDS ORDERED: PROMETHAZINE HCL 25 MG/1 ML VIAL IVPUSH PRN (14:29)
[2017-07-09] MEDS ORDERED: LACTATED RINGERS SOLUTION 1,000 ML IV SCH (14:30)
[2017-07-09] MEDS ORDERED: HEPARIN INFUSION - 25,000 UNITS/500 ML INFUS.BAG IVPB ONE (14:34)
--- NOTE | 2017-07-09 14:55 | PN ---
Progress Note (short form) - Note Progress Note: Vascular Surgery S/P angiogram, with angioplasty with stent placement. Pt has thrombus in both legs. Started pt on TPA infusion to lyse left leg. Will have to take pt back [facility] for thrombolysis check at 8am. Will need to have cardiology, and heme see pt due to thrombus in bl lower ext. Gabriel Guzmán DO Problem List - Problems (1) Ischemia of both lower extremities Code(s): I99.8 - OTHER DISORDER OF CIRCULATORY SYSTEM
--- NOTE | 2017-07-09 14:58 | OP ---
Operative Note - Note: Operative Date: 07/09/17 Pre-Operative Diagnosis: LLE ischemia Operation: Aortgram, LLE angiogram, SFA,popliteal artery, tibial artery angioplasty, SFA stent placement, infusion of TPA Findings: Thrombus throughout LLE Post-Operative Diagnosis: Same as Pre-op Surgeon: Gabriel Guzmán Anesthesia: Fractional Estimated Blood Loss (mls): 50 Operative Report Dictated: Yes
[2017-07-09] MEDS ORDERED: HYDROmorphone HCL CARPU-JECT 1 MG/1 ML DISP.SYRIN IVPUSH PRN (17:21)
[2017-07-09] MEDS ORDERED: HYDROmorphone HCL CARPU-JECT 2 MG/1 ML DISP.SYRIN ONE (17:25)
[2017-07-09] MEDS: LORazepam 2 MG/ML SDV VIAL IVPUSH ONE ×2 (17:30→21:30)
--- NOTE | 2017-07-09 17:35 | PN ---
Physical Exam: SUBJECTIVE: Patient seen and examined. C/o bilateral foot pain L>R OBJECTIVE: Vital Signs Period Temp Pulse Resp BP Sys/Cota Pulse Ox Last 24 Hr 97.4 F-98.1 F 92-108 15-20 89-169/62-100 94-99 GENERAL: nad, aaox3 EYES: sclera anicteric, conjunctiva clear ENT: oropharynx clear without exudates, MMM LUNGS: CTAB HEART: rrr, normal s1/s2 ABDOMEN: Soft, ntnd LOWER EXTREMITIES: unable to palpate L DP/PT, L foot cool, Calf tenderness in R leg, worsen w/ dorsiflexion. CBC, BMP 07/09/17 18:15 07/09/17 18:15 Hepatic Panel Total Bilirubin 0.1 mg/dL (0.2-1.0) L D 07/09/17 18:15 AST 26 U/L (15-37) D 07/09/17 18:15 ALT 18 U/L (12-78) 07/09/17 18:15 Alkaline Phosphatase 144 U/L (45-117) H 07/09/17 18:15 Albumin 2.8 g/dl (3.4-5.0) L 07/09/17 18:15 INR, PTT INR 1.01 (0.82-1.09) 07/09/17 10:00 EKG - NSR, NAD, Rate 95, QTC 525, no ischemic changes IMAGING: BL LE doppler 07/09 - IMPRESSION: Occlusion of left popliteal artery stent with minimal flow visualized in the posterior tibial artery Active Medications Atorvastatin Calcium (Lipitor -) 10 mg PO HS [facility] Budesonide/Formoterol Fumarate (Symbicort 160/4.5mcg -) 1 puff IH BID [facility] Last Admin: 07/09/17 10:12 Dose: 1 puff Clopidogrel Bisulfate (Plavix -) 75 mg PO DAILY [facility] Last Admin: 07/09/17 10:11 Dose: Not Given Escitalopram Oxalate (Lexapro -) 20 mg PO HS [facility] Gabapentin (Neurontin -) 600 mg PO BID [facility] Last Admin: 07/09/17 10:11 Dose: 600 mg Hydromorphone HCl (Dilaudid Injection -) 0.5 mg IVPUSH Q3H PRN PRN Reason: PAIN Hydromorphone HCl (Dilaudid Injection -) 0.5 mg IVPUSH [id number] PRN Sodium Chloride (Normal Saline -) 1,000 mls @ 75 mls/hr IV ASDIR [facility] Last Admin: 07/09/17 06:35 Dose: 75 mls/hr Alteplase, Recombinant 25 mg/ (Sodium Chloride) 250 mls @ 20 mls/hr CVP ONCE ONE PRN Reason: Protocol Stop: 07/10/17 02:44 Last Admin: 07/09/17 19:30 Dose: 20 mls/hr HEPARIN SOD,PORK IN 0.45% NACL (Heparin-1/2ns 25,000 Units/500) 25,000 units in 500 mls @ 20 mls/hr IVPB TITR JENNIFER; 1,000 UNITS/HR PRN Reason: Protocol Insulin Aspart (Novolog Vial Sliding Scale -) 1 vial SQ Q4H JENNIFER PRN Reason: Protocol Last Admin: 07/09/17 10:48 Dose: Not Given Loratadine (Claritin -) 10 mg PO DAILY PRN PRN Reason: allergies Magnesium Oxide (Mag-Ox -) 400 mg PO DAILY PRN PRN Reason: MODERATE PAIN Mirtazapine (Remeron -) 30 mg PO HS [facility] Montelukast Sodium (Singulair -) 10 mg PO HS [facility] Non-Formulary Medication (Dolutegravir Sodium) 50 mg PO DAILY [facility] Non-Formulary Medication (Emtricitabine/Tenofov Alafenam [Descovy 200-25 Mg Tablet (Nf)]) 1 each PO HS [facility] Ondansetron HCl (Zofran Injection) 4 mg IVPUSH Q6H PRN PRN Reason: NAUSEA AND/OR VOMITING Pantoprazole Sodium (Protonix -) 20 mg PO BID [facility] Last Admin: 07/09/17 10:12 Dose: 20 mg Promethazine HCl (Phenergan Injection -) 12.5 mg IVPUSH Q6H PRN PRN Reason: NAUSEA-FOR RESCUE AFTER 15 MIN Zolpidem Tartrate (Ambien -) 5 mg PO HS [facility] ASSESSMENT/PLAN: 57yo woman with PMH HIV (CD4 725, VL 180 on 07/04; on HAART), DM2, HTN, CAD (s/p cardiac stent 04/15), BL SFA stents (04/17, 05/18), who p/w BL LE pain, swelling and inability to ambulate for last two days and found to have b/l occlusions of LE in the setting of medication non-compliance (Plavix). #s/p LLE angiogram with angioplasty/stent placement today + R SFA occlusion -Dr. Guzmán following. On Heparin gtt. TPA infusion to LLE -NPO, will be brought back to OR tomorrow -Neuro/pulse checks Q2H -Dialudid 0.5mg q3h PRN for pain #BRENDAN, resolved, (1.3 on admission, now 0.9) -Avoid nephrotoxic agents -Continue IVF NS 75cc/hr #DM2 - A1C 13.3 on 07/04 - BGM & ISS q4h #HTN - hold home meds for now #HIV - CV4 809, VL 80 on 07/04; on HAART - C/W Tivicay and Descovy - f/u as outpt for further management w/ PCP #CAD - PTCA on 04/15 - ASA, Plavix on discharge #HLD - Triglycerides 1264, Cholesterol 278 on 07/04 -c/w home pravastatin - Consider fibrate #PPX -DVT - Heparin gtt -GI - c/w home ppi #FEN: NS 75cc/hr / lytes wnl / NPO #DISPO: ICU management FULL code d/w Dr. Per Murray MD PGY1 - Internal Medicine Visit type - Emergency Visit Emergency Visit: No - New Patient This patient is new to me today: Yes Date on this admission: 07/09/17 - Critical Care Critical Care patient: No
[2017-07-09] MEDS: HYDROmorphone HCL CARPU-JECT 2 MG/1 ML DISP.SYRIN IVPUSH PRN ×2 (18:30→19:50)
[2017-07-09 18:56] LABS: BASO % 0.8 % (0-2.0); EOS % 0.4 % (0-4.5); HEMATOCRIT 37.6 % (32.4-45.2); HEMOGLOBIN 11.6 GM/dL (10.7-15.3); LYMPH % 10.3 % (8-40); MCH 26.2 pg (25.7-33.7); MCHC 30.8 g/dl (32.0-36.0); MEAN PLT VOLUME 10.3 fl (7.5-11.1); MONO % 4.2 % (3.8-10.2); NEUT % 84.3 % (42.8-82.8); PLATELET COUNT 78 K/MM3 (134-434); RBC 4.42 M/mm3 (3.60-5.2); RDW 15.1 % (11.6-15.6); WHITE BLOOD COUNT 13.4 K/mm3 (4.0-10.0)
[2017-07-09 19:05] LABS: ALBUMIN 2.8 g/dl (3.4-5.0); ALK PHOS 144 U/L (45-117); ANION GAP 9 (8-16); BILIRUBIN,TOTAL 0.1 mg/dL (0.2-1.0); BLOOD UREA NITROGEN 9 mg/dL (7-18); CHLORIDE 103 mmol/L (98-107); CO2 23 mmol/L (21-32); CREATININE 0.9 mg/dL (0.55-1.02); GLUCOSE,RANDOM 199 mg/dL (74-106); SGPT/ALT 18 U/L (12-78); SODIUM 135 mmol/L (136-145); TOT PROT 7.1 g/dl (6.4-8.2)
[2017-07-09 19:08] LABS: POTASSIUM 4.7 mmol/L (3.5-5.1); SGOT/AST 26 U/L (15-37)
--- NOTE | 2017-07-09 19:34 | PN ---
Teaching Attending Note Name of Resident: Catalina Murray ATTENDING PHYSICIAN STATEMENT I saw and evaluated the patient. I reviewed the resident's note and discussed the case with the resident. I agree with the resident's findings and plan as documented. SUBJECTIVE: Patient is in PAcu, lying in bed seems in pain, received a dose of morphine in PACU. going to ICU OBJECTIVE: Vital Signs Temperature 98.0 F 07/09/17 17:45 Pulse Rate 110 H 07/09/17 17:45 Respiratory Rate 18 07/09/17 17:45 Blood Pressure 157/94 07/09/17 17:45 O2 Sat by Pulse Oximetry (%) 98 07/09/17 17:45 CBCD WBC 13.4 K/mm3 (4.0-10.0) H D 07/09/17 18:15 RBC 4.42 M/mm3 (3.60-5.2) 07/09/17 18:15 Hgb 11.6 GM/dL (10.7-15.3) 07/09/17 18:15 Hct 37.6 % (32.4-45.2) 07/09/17 18:15 MCV 85.0 fl (80-96) 07/09/17 18:15 MCHC 30.8 g/dl (32.0-36.0) L 07/09/17 18:15 RDW 15.1 % (11.6-15.6) 07/09/17 18:15 Plt Count 78 K/MM3 (134-434) L D 07/09/17 18:15 MPV 10.3 fl (7.5-11.1) 07/09/17 18:15 CMP Sodium 135 mmol/L (136-145) L 07/09/17 18:15 Potassium 4.7 mmol/L (3.5-5.1) 07/09/17 18:15 Chloride 103 mmol/L (98-107) 07/09/17 18:15 Carbon Dioxide 23 mmol/L (21-32) 07/09/17 18:15 Anion Gap 9 (8-16) 07/09/17 18:15 BUN 9 mg/dL (7-18) 07/09/17 18:15 Creatinine 0.9 mg/dL (0.55-1.02) 07/09/17 18:15 Creat Clearance w eGFR > 60 (>60) 07/09/17 18:15 Random Glucose 199 mg/dL (74-106) H 07/09/17 18:15 Calcium 8.0 mg/dL (8.5-10.1) L 07/09/17 18:15 Total Bilirubin 0.1 mg/dL (0.2-1.0) L D 07/09/17 18:15 AST 26 U/L (15-37) D 07/09/17 18:15 ALT 18 U/L (12-78) 07/09/17 18:15 Alkaline Phosphatase 144 U/L (45-117) H 07/09/17 18:15 Total Protein 7.1 g/dl (6.4-8.2) 07/09/17 18:15 Albumin 2.8 g/dl (3.4-5.0) L 07/09/17 18:15 Current Medications Generic Name Dose Route Start Last Admin Trade Name Freq PRN Reason Stop Dose Admin Budesonide/Formoterol Fumarate 1 puff 07/09/17 10:00 07/09/17 10:12 Symbicort 160/4.5mcg - IH 1 puff BID JENNIFER Administration Clopidogrel Bisulfate 75 mg 07/09/17 10:00 07/09/17 10:11 Plavix - PO Not Given DAILY JENNIFER Escitalopram Oxalate 20 mg 07/09/17 22:00 Lexapro - PO HS JENNIFER Gabapentin 600 mg 07/09/17 10:00 07/09/17 10:11 Neurontin - PO 600 mg BID JENNIFER Administration Hydromorphone HCl 0.5 mg 07/09/17 17:21 07/09/17 17:30 Dilaudid Injection - IVPUSH 07/10/17 17:20 0.5 mg Q4H PRN Administration PAIN Sodium Chloride 1,000 mls @ 75 mls/hr 07/09/17 06:30 07/09/17 06:35 Normal Saline - IV 75 mls/hr ASDIR JENNIFER Administration Alteplase, Recombinant 25 mg/ 250 mls @ 5 mls/hr 07/09/17 14:15 Sodium Chloride CVP 07/11/17 16:14 ONCE ONE Protocol HEPARIN SOD,PORK IN 0.45% NACL 25,000 units in 500 mls @ 20 mls/hr 07/09/17 14 :15 Heparin-1/2ns 25,000 Units/500 IVPB TITR JENNIFER Protocol 1,000 UNITS/HR Lactated Ringer's 1,000 mls @ 125 mls/hr 07/09/17 14:30 Lactated Ringers Solution IV ASDIR [facility] Insulin Aspart 1 vial 07/09/17 06:30 07/09/17 10:48 Novolog Vial Sliding Scale - SQ Not Given Q4H [facility] Protocol Loratadine 10 mg 07/09/17 06:47 Claritin - PO DAILY PRN allergies Magnesium Oxide 400 mg 07/09/17 07:43 Mag-Ox - PO DAILY PRN MODERATE PAIN Mirtazapine 30 mg 07/09/17 22:00 Remeron - PO HS [facility] Montelukast Sodium 10 mg 07/09/17 22:00 Singulair - PO [facility] Morphine Sulfate 1 mg 07/09/17 06:16 07/09/17 11:20 Morphine Injection - IVPUSH 1 mg Q4H PRN Administration PAIN Non-Formulary Medication 50 mg 07/09/17 10:00 Dolutegravir Sodium PO DAILY [facility] Non-Formulary Medication 1 each 07/09/17 22:00 Emtricitabine/Tenofov Alafenam [Descovy 200-25 Mg Tablet (Nf)] PO HS [facility] Ondansetron HCl 4 mg 07/09/17 14:29 Zofran Injection IVPUSH Q6H PRN NAUSEA AND/OR VOMITING Pantoprazole Sodium 20 mg 07/09/17 10:00 07/09/17 10:12 Protonix - PO 20 mg BID [facility] Administration Promethazine HCl 12.5 mg 07/09/17 14:29 Phenergan Injection - IVPUSH Q6H PRN NAUSEA-FOR RESCUE AFTER 15 MIN Zolpidem Tartrate 5 mg 07/09/17 22:00 Ambien - PO [facility] Home Medications Medication Instructions Recorded Gabapentin [Neurontin] 600 mg PO BID 07/06/16 Magnesium 200 mg PO DAILY PRN 07/06/16 Dolutegravir Sodium [Tivicay] 50 mg PO DAILY #30 tablet 04/04/17 Emtricitabine/Tenofov Alafenam 1 each PO HS #30 tablet 04/04/17 [Descovy 200-25 mg Tablet (Nf)] Lisinopril 5 mg PO HS #30 tablet 04/04/17 Loratadine [Claritin -] 10 mg PO DAILY PRN #30 tablet 04/04/17 Cyclobenzaprine HCl [Flexeril -] 10 mg PO TID 04/26/17 Montelukast Na [Singulair -] 10 mg PO HS 04/26/17 Clopidogrel Bisulfate [Plavix -] 75 mg PO DAILY #30 tablet 04/27/17 Aspirin [Aspirin EC] 81 mg PO DAILY 05/02/17 Insulin Glargine,Hum.rec.anlog 35 unit SQ HS 05/02/17 [Toujeo Solostar] Insulin Lispro [Humalog Kwikpen 15 unit SQ TID #7 ea 05/02/17 U-200] Omeprazole 20 mg PO BID #60 tablet. 06/01/17 Sulfamethoxazole/Trimethoprim 1 each PO BID #20 tablet 06/29/17 [Bactrim Ds Tablet] Tramadol HCl [Ultram -] 50 mg PO Q6H #20 tablet MDD 4 06/29/17 Budesonide/Formeterol Fumarate 1 puff IH BID 07/04/17 [SYMBICORT 160/4.5mcg -] Clonazepam [Klonopin -] 0.5 mg PO TID #90 tablet MDD 1.5mg 07/04/17 Escitalopram Oxalate [Lexapro -] 20 mg PO HS #30 tablet 07/04/17 Mirtazapine [Remeron -] 30 mg PO HS #30 tablet 07/04/17 Olopatadine HCl [Pataday] 1 drop OP DAILY #2.5 ml 07/04/17 Oxybutynin Chloride [Oxybutynin 10 mg PO DAILY 07/04/17 Chloride ER] Zolpidem Tartrate [Ambien] 5 mg PO HS #30 tab MDD 1 07/04/17 Emtricitabine/Tenofovir (Tdf) 1 each PO HS 07/09/17 [Truvada 100 mg-150 mg Tablet] PE: Lying in bed post procedure CHEST: GAE bl CVS: S1S2 positive , tachycardic Left extremity no palpable pulse on doppler Right Lower extremity positive for pulses. rest of PE as per resident ASSESSMENT AND PLAN: 57 F with pmhx of HTN, HLD, CAD, LKR, CAD s/p Stents, venous insufficiency, and smoking who presents with LLE pain, found to have occlusion of L. Polipteal Artery Stent and minimal flow in Posterior Tibial Artery # Acute Occlusion of L. Polipiteal Artery Stent, on TPA drip s/p stent s/p Aortgram, LLE angiogram, SFA,popliteal artery, tibial artery angioplasty, SFA stent placement, infusion of TPA # Acute over chronic kidney disease # DM sliding scale with coverage # HTN hold BP meds for now # HIV continue Tivicay and Descovy going to ICU for further management
--- NOTE | 2017-07-09 19:43 | PN ---
Progress Note (short form) - Note Progress Note: Vascular Surgery Pt seen and examined in PACU. Resting well. LLE -- leg is warm. Foot is still cold. Will turn up TPA to 20cc/hr -- which is 2mg of TPA an hour. Spoke to family about pt's condition at length at bedside. They expressed to me that pt is very noncompliant, has not taken her plavix, has continued to smoke, and has not followed up with her appts with me. I explained to the family that she is in danger of losing her leg if the tpa does not work. Gabriel nolasco DO Problem List - Problems (1) Ischemia of both lower extremities Code(s): I99.8 - OTHER DISORDER OF CIRCULATORY SYSTEM
[2017-07-09] MEDS ORDERED: HYDROmorphone HCL CARPU-JECT 2 MG/1 ML DISP.SYRIN IVPUSH SCH (20:45)
--- NOTE | 2017-07-09 21:42 | CONSULT ---
Consult - text type - Consultation Consultation Note: Pulm/CCM Pt seen and examined in ICU CC: POD #0 S/p Aortgram, LLE angiogram, SFA,popliteal artery, tibial artery angioplasty, SFA stent placement, infusion of TPA with Dr Guzmán today HPI: Briefly Ms Gilliam is a 57 yo woman w/ pmh of HIV (CV4 809, VL 80 on 07/04; on ARVs), DM2, HTN, CAD (s/p cardiac stent 04/15), severe PAD s/p BL SFA stents (04/17, 05/18), initially presented w/ BL LE pain, swelling and caudication. On evaluation had cold LLE, underwent workup (US and aortagram) which revealed thrombosis of SFA stent as well as thrombosis on R. The L limb was felt to be under greater threat and today pt went to OR for plasty, revision of stent and TPA infusion. THe limb remaind cold and Dr Guzmán increased TPA gtt in PACU. COAGs which were sent were uninterpretable by lab, repeat pending. Pt transferred from PACU to ICU for overnight observation and likely return to OR in AM. In ICU pt was mildly agitated, somewhat confused but directable. Her exam was non-focal, she was moving all ext equally. She was tachy to 120s, RR 16 -20 but paradoxical breathing. There was no stridor or wheezes, and breathing likely due to residual sedation and pain medication. ABG and lacate were sent off of femoral sheath, revealing for acute hypercapnea. She received mulitple doses of fentanyl, dilaudid and 2mg ativan. Pt still arousable, and following simple commands. As pt was still in pain and not in overt resp failure, narcan was not given, repeat ABG to be performed. Dr Guzmán to be notified of coag panel resultes. Past Medical History Cardio/Vascular HTN,Hyperlipdemia Pulmonary Asthma Hepatobiliary Cholelithiasis Infectious Disease HIV Endocrine Diabetes Mellitus Past Surgical History Past Surgical History Cholecystectomy Smoking History Smoking history Former smoker Aproximately how many 5 cigarettes per day If you are a former smoker, 2 weeks ago when did you quit? Alcohol/Substance Use Hx Alcohol Use No Social History ADL Independent History of Recent Travel No Ambulatory Orders Gabapentin [Neurontin] 600 mg PO BID 07/06/16 Magnesium 200 mg PO DAILY PRN 07/06/16 Dolutegravir Sodium [Tivicay] 50 mg PO DAILY #30 tablet 04/04/17 Emtricitabine/Tenofov Alafenam [Descovy 200-25 mg Tablet (Nf)] 1 each PO HS #30 tablet 04/04/17 Lisinopril 5 mg PO HS #30 tablet 04/04/17 Loratadine [Claritin -] 10 mg PO DAILY PRN #30 tablet 04/04/17 Montelukast Na [Singulair -] 10 mg PO HS 04/26/17 Clopidogrel Bisulfate [Plavix -] 75 mg PO DAILY #30 tablet 04/27/17 Aspirin [Aspirin EC] 81 mg PO DAILY 05/02/17 Insulin Glargine,Hum.rec.anlog [Toujeo Solostar] 35 unit SQ HS 05/02/17 Insulin Lispro [Humalog Kwikpen U-200] 15 unit SQ TID #7 ea 05/02/17 Omeprazole 20 mg PO BID #60 tablet. 06/01/17 Budesonide/Formeterol Fumarate [SYMBICORT 160/4.5mcg -] 1 puff IH BID 07/04/17 Clonazepam [Klonopin -] 0.5 mg PO TID #90 tablet MDD 1.5mg 07/04/17 Escitalopram Oxalate [Lexapro -] 20 mg PO HS #30 tablet 07/04/17 Mirtazapine [Remeron -] 30 mg PO HS #30 tablet 07/04/17 Olopatadine HCl [Pataday] 1 drop OP DAILY #2.5 ml 07/04/17 Oxybutynin Chloride [Oxybutynin Chloride ER] 10 mg PO DAILY 07/04/17 Zolpidem Tartrate [Ambien] 5 mg PO HS #30 tab MDD 1 07/04/17 Pravastatin Sodium [Pravachol (Nf)] 40 mg PO HS 07/09/17 Active Medications Atorvastatin Calcium (Lipitor -) 10 mg PO HS [facility] Budesonide/Formoterol Fumarate (Symbicort 160/4.5mcg -) 1 puff IH BID [facility] Last Admin: 07/09/17 10:12 Dose: 1 puff Clopidogrel Bisulfate (Plavix -) 75 mg PO DAILY [facility] Last Admin: 07/09/17 10:11 Dose: Not Given Escitalopram Oxalate (Lexapro -) 20 mg PO HS JENNIFER Gabapentin (Neurontin -) 600 mg PO BID [facility] Last Admin: 07/09/17 10:11 Dose: 600 mg Hydromorphone HCl (Dilaudid Injection -) 0.5 mg IVPUSH Q3H PRN PRN Reason: PAIN Hydromorphone HCl (Dilaudid Injection -) 0.5 mg IVPUSH [id number] PRN Sodium Chloride (Normal Saline -) 1,000 mls @ 75 mls/hr IV ASDIR [facility] Last Admin: 07/09/17 06:35 Dose: 75 mls/hr Alteplase, Recombinant 25 mg/ (Sodium Chloride) 250 mls @ 20 mls/hr CVP ONCE ONE PRN Reason: Protocol Stop: 07/10/17 02:44 Last Admin: 07/09/17 19:30 Dose: 20 mls/hr HEPARIN SOD,PORK IN 0.45% NACL (Heparin-1/2ns 25,000 Units/500) 25,000 units in 500 mls @ 20 mls/hr IVPB TITR JENNIFER; 1,000 UNITS/HR PRN Reason: Protocol Insulin Aspart (Novolog Vial Sliding Scale -) 1 vial SQ Q4H JENNIFER PRN Reason: Protocol Last Admin: 07/09/17 10:48 Dose: Not Given Loratadine (Claritin -) 10 mg PO DAILY PRN PRN Reason: allergies Magnesium Oxide (Mag-Ox -) 400 mg PO DAILY PRN PRN Reason: MODERATE PAIN Mirtazapine (Remeron -) 30 mg PO HS JENNIFER Montelukast Sodium (Singulair -) 10 mg PO HS [facility] Non-Formulary Medication (Dolutegravir Sodium) 50 mg PO DAILY [facility] Non-Formulary Medication (Emtricitabine/Tenofov Alafenam [Descovy 200-25 Mg Tablet (Nf)]) 1 each PO HS [facility] Ondansetron HCl (Zofran Injection) 4 mg IVPUSH Q6H PRN PRN Reason: NAUSEA AND/OR VOMITING Pantoprazole Sodium (Protonix -) 20 mg PO BID [facility] Last Admin: 07/09/17 10:12 Dose: 20 mg Promethazine HCl (Phenergan Injection -) 12.5 mg IVPUSH Q6H PRN PRN Reason: NAUSEA-FOR RESCUE AFTER 15 MIN Zolpidem Tartrate (Ambien -) 5 mg PO HS JENNIFER CBCD WBC 13.4 K/mm3 (4.0-10.0) H D 07/09/17 18:15 RBC 4.42 M/mm3 (3.60-5.2) 07/09/17 18:15 Hgb 11.6 GM/dL (10.7-15.3) 07/09/17 18:15 Hct 37.6 % (32.4-45.2) 07/09/17 18:15 MCV 85.0 fl (80-96) 07/09/17 18:15 MCHC 30.8 g/dl (32.0-36.0) L 07/09/17 18:15 RDW 15.1 % (11.6-15.6) 07/09/17 18:15 Plt Count 78 K/MM3 (134-434) L D 07/09/17 18:15 MPV 10.3 fl (7.5-11.1) 07/09/17 18:15 CMP Sodium 135 mmol/L (136-145) L 07/09/17 18:15 Potassium 4.7 mmol/L (3.5-5.1) 07/09/17 18:15 Chloride 103 mmol/L (98-107) 07/09/17 18:15 Carbon Dioxide 23 mmol/L (21-32) 07/09/17 18:15 Anion Gap 9 (8-16) 07/09/17 18:15 BUN 9 mg/dL (7-18) 07/09/17 18:15 Creatinine 0.9 mg/dL (0.55-1.02) 07/09/17 18:15 Creat Clearance w eGFR > 60 (>60) 07/09/17 18:15 Random Glucose 199 mg/dL (74-106) H 07/09/17 18:15 Calcium 8.0 mg/dL (8.5-10.1) L 07/09/17 18:15 Total Bilirubin 0.1 mg/dL (0.2-1.0) L D 07/09/17 18:15 AST 26 U/L (15-37) D 07/09/17 18:15 ALT 18 U/L (12-78) 07/09/17 18:15 Alkaline Phosphatase 144 U/L (45-117) H 07/09/17 18:15 Total Protein 7.1 g/dl (6.4-8.2) 07/09/17 18:15 Albumin 2.8 g/dl (3.4-5.0) L 07/09/17 18:15 CARDIAC ENZYMES Creatine Kinase 183 IU/L (26-192) 07/09/17 18:15 Troponin I < 0.02 ng/ml (0.00-0.05) 07/09/17 18:15 INR, PTT INR 1.01 (0.82-1.09) 07/09/17 10:00 Fibrinogen Cancelled 07/09/17 18:15 ABG Results ABG pH 7.24 (7.35-7.45) L* 07/09/17 21:40 ABG pCO2 at Pt Temp 56.0 mmHg (35-45) H 07/09/17 21:40 ABG pO2 at Pt Temp 103.0 mmHg (80-100) H 07/09/17 21:40 ABG HCO3 23.0 meq/L (22-26) 07/09/17 21:40 ABG O2 Sat (Measured) 97.6 % (90-98.9) 07/09/17 21:40 ABG O2 Content 15.9 % vol (15-22) 07/09/17 21:40 ABG Base Excess -4.4 meq/l (-2-2) L 07/09/17 21:40 Vital Signs Temp 98.0 F 07/09/17 17:45 Pulse 119 H 07/09/17 19:00 Resp 12 07/09/17 19:00 BP 141/102 07/09/17 19:00 Pulse Ox 96 07/09/17 19:00 Intake & Output 07/08/17 07/09/17 07/09/17 23:59 11:59 23:59 Intake Total 1527 Output Total 50 Balance 1477 Weight 70.307 kg Intake: IV 1527 Heparin - 25,000 Unit In 90 Normal Saline - 495 ml @ 1,000 UNIT/HR 20 mls/hr IV TITR JENNIFER Rx#: [id number] Normal Saline - 1,000 ml 337 @ 75 mls/hr IV ASDIR JENNIFER Rx#:[id number] Output: Estimated Blood Loss 50 Other: Voiding Method Bedpan Height 5 ft 1 in Body Mass Index (BMI) 29.2 Weight Measurement Method Stated by Patient Weight Measurement Method Estimated by Staff ROS: unable due to mental status PE: Gen; mildly agitated, woman in moderate distress HEENT: EOMI, PERRL at 3mm, no stridor, diaphoretic PULM: few coarse crackles, paradoxical breathing (resolves when more awake), no wheezes CV: tachy, regular ABD: soft, NT, +BS EXT; R Femoral sheath, TPA infusing, doppler + on R, - on left, LLE cold to touch at level of upper calf and distally (unchanged per report) NEuro: non focal,, follows simple commands intermittently A/ 57 y/o woman HIV, HTN, DM, CAD now s/p S/p Aortgram, LLE angiogram, SFA, popliteal artery, tibial artery angioplasty, SFA stent placement, infusion of TPA with Dr Guzmán today P/ -cont tPA infusion as per surgery -serial LE exam and doppler, currently no pulse on L -repeat ABG in 1 hr to make sure no worsening hypercapnea (likely 2/2 sedation/ opiates), if pH < 7.2 or obtunded will reverse with Narcan -low threshold for CT head if mental status worsens -f/u coags--Dr Guzmán to be notified -restart home meds in am if not back in OR -NPO, no other DVT prophy as on tPA infusion -family is aware of possible limb threat as per Dr Guzmán note. [place] [facility] [phone] CCT
[2017-07-09 21:53] LABS: ARTERIAL BLD GAS O2 SATURATION 97.6 % (90-98.9); ARTERIAL BLOOD GAS BASE EXCESS -4.4 meq/l (-2-2)
[2017-07-09 21:56] LABS: ALLENS TEST POSITIVE
[2017-07-09 21:57] LABS: ARTERIAL BLOOD GAS pH 7.24 (7.35-7.45)
[2017-07-09] MEDS ORDERED: ATORVASTATIN CA 10 MG TABLET (FP) PO SCH (22:00)
[2017-07-09] MEDS ORDERED: PATIENT'S OWN MEDICATION (NON-FORMULARY) (Pravastatin Sodium 40 MG) PO SCH (22:00)
[2017-07-09] MEDS ORDERED: PATIENT'S OWN MEDICATION (NON-FORMULARY) (Emtricitabine/Tenofov Alafenam [Descovy 200-25 M PO SCH (22:00)
[2017-07-09] MEDS ORDERED: MONTELUKAST NA 10 MG TABLET PO SCH (22:00)
[2017-07-09] MEDS ORDERED: MIRTAZAPINE 30 MG TABLET (FP) PO SCH (22:00)
[2017-07-09] MEDS ORDERED: ZOLPIDEM TARTRATE 5 MG TABLET PO SCH (22:00)
[2017-07-09] MEDS ORDERED: LISINOPRIL 5 MG TABLET (FP) PO SCH (22:00)
[2017-07-09] MEDS ORDERED: ESCITALOPRAM OXALATE 20 MG TABLET (FP) PO SCH (22:00)
[2017-07-09 23:13] LABS: INR 1.2 (0.82-1.09); PROTHROMBIN TIME (PATIENT) 13.6 SEC (9.98-11.88)
[2017-07-09 23:16] LABS: ACTIVATED PTT 35.2 SECONDS (26.9-34.4)
[2017-07-09] MEDS: HYDROmorphone HCL CARPU-JECT 1 MG/1 ML DISP.SYRIN IVPUSH PRN (23:30)
[2017-07-09 23:51] LABS: ARTERIAL BLD GAS O2 SATURATION 98.9 % (90-98.9); ARTERIAL BLOOD GAS BASE EXCESS -4.1 meq/l (-2-2); ARTERIAL BLOOD GAS PCO2 51.2 mmHg (35-45); ARTERIAL BLOOD GAS pH 7.27 (7.35-7.45)
[2017-07-10] MEDS: INSULIN SLIDING SCALE (NOVOLOG) 1 VIAL SQ SCH ×6 (02:00→21:39)
[2017-07-10] MEDS: HYDROmorphone HCL CARPU-JECT 1 MG/1 ML DISP.SYRIN IVPUSH PRN ×5 (03:00→20:41)
[2017-07-10] MEDS ORDERED: ALTEPLASE (CATHFLO) 25 MG in SODIUM CHLORIDE 250 ML CVP ONE (04:20)
[2017-07-10 06:41] LABS: BASO % 0.3 % (0-2.0); EOS % 0.3 % (0-4.5); HEMATOCRIT 34.3 % (32.4-45.2); LYMPH % 15.9 % (8-40); MCH 26.6 pg (25.7-33.7); MEAN CELL VOLUME 83.1 fl (80-96); MEAN PLT VOLUME 9.1 fl (7.5-11.1); MONO % 8.5 % (3.8-10.2); PLATELET COUNT 79 K/MM3 (134-434); RBC 4.13 M/mm3 (3.60-5.2); WHITE BLOOD COUNT 8.1 K/mm3 (4.0-10.0)
[2017-07-10 06:57] LABS: INR 1.2 (0.82-1.09); PROTHROMBIN TIME (PATIENT) 13.6 SEC (9.98-11.88)
[2017-07-10] MEDS ORDERED: HEPARIN NA (PORCINE) 5,000 UNITS/ML 1ML VIAL ONE (07:11)
[2017-07-10] MEDS ORDERED: LIDOCAINE HCL 1%, 10 MG/ML (20ML VIAL) ONE (07:11)
[2017-07-10] MEDS ORDERED: PROPOFOL 20 ML ONE ×4 (07:14)
[2017-07-10] MEDS ORDERED: SUCCINYLCHOLINE CHLORIDE 200 MG/10 ML VIAL ONE (07:14)
[2017-07-10] MEDS ORDERED: MIDAZOLAM HCL 2 MG/2 ML SINGLE DOSE VIAL ONE ×2 (07:14)
[2017-07-10] MEDS ORDERED: PHENYLEPHRINE HCL 10 MG/1 ML SINGLE DOSE VIAL ONE (07:14)
[2017-07-10] MEDS ORDERED: ceFAZolin SODIUM 1 GM VIAL ONE ×2 (07:14→07:48)
[2017-07-10] MEDS ORDERED: ePHEDrine SULFATE 50 MG/1 ML AMPULE ONE (07:14)
[2017-07-10 07:16] LABS: ANION GAP 4 (8-16); BLOOD UREA NITROGEN 10 mg/dL (7-18); CHLORIDE 106 mmol/L (98-107); CO2 26 mmol/L (21-32); CREATININE 1.1 mg/dL (0.55-1.02); GLUCOSE,RANDOM 246 mg/dL (74-106); POTASSIUM 4.7 mmol/L (3.5-5.1); SODIUM 136 mmol/L (136-145)
--- NOTE | 2017-07-10 07:40 | PN ---
Progress Note (short form) - Note Progress Note: Vascular Surgery Pt seen and examined. Doing well. Dopplerable DP and PT pulses in left foot. forefoot is a little cool. Will do thrombolysis check at 8am. Motor and sensory intact in left leg. Gabriel Guzmán DO Problem List - Problems (1) Ischemia of both lower extremities Code(s): I99.8 - OTHER DISORDER OF CIRCULATORY SYSTEM
--- NOTE | 2017-07-10 07:54 | PN ---
Physical Exam: SUBJECTIVE: Patient doing well but complaining of some slight left leg pain this AM. OBJECTIVE: Vital Signs Period Temp Pulse Resp BP Sys/Cota Pulse Ox Last 24 Hr 96 F-98.9 F 92-123 12-114 97-170/62-102 93-100 GENERAL: The patient is awake, alert, and fully oriented, in no significant acute distress. HEAD: Normal with no signs of trauma. EYES: PERRL, extraocular movements intact, sclera anicteric, conjunctiva clear. No ptosis. ENT: Ears normal, nares patent, oropharynx clear without exudates, moist mucous membranes. NECK: Trachea midline, full range of motion, supple. LUNGS: Breath sounds equal, clear to auscultation bilaterally, no wheezes, no crackles, no accessory muscle use. HEART: Regular rate and rhythm, S1, S2 without murmur, rub or gallop. ABDOMEN: Soft, nontender, nondistended, normoactive bowel sounds, no guarding, no rebound, no hepatosplenomegaly, no masses. EXTREMITIES: 2+ bl radial pulses but only dopplarable DPs bilaterally, warm, well-perfused, calf swelling bilaterally, left > right NEUROLOGICAL: preserved motor function but slight anesthesia in left lower extremity but intact sensation to deep touch and pain, warm and not discolored PSYCH: Normal mood, normal affect. SKIN: Warm, dry, normal turgor, no rashes or lesions noted Laboratory Results - last 24 hr 07/09/17 07/09/17 07/09/17 06:48 10:00 10:00 WBC 6.1 RBC 4.36 Hgb 11.7 Hct 36.2 MCV 83.0 MCH 26.7 MCHC 32.2 RDW 15.1 Plt Count 129 L MPV 9.7 Neutrophils % Lymphocytes % Monocytes % Eosinophils % Basophils % PT with INR INR PTT (Actin FS) Fibrinogen Anticoagulation Therapy Puncture Site ABG pH ABG pCO2 at Pt Temp ABG pO2 at Pt Temp ABG HCO3 ABG O2 Sat (Measured) ABG O2 Content ABG Base Excess Parag Test O2 Delivery Device Oxygen Flow Rate Vent Mode Vent Rate Mechanical Rate Pressure Support Vent Sodium 136 Potassium 4.0 Chloride 107 D Carbon Dioxide 22 Anion Gap 7 L BUN 11 D Creatinine 1.0 D Creat Clearance w eGFR 57.56 POC Glucometer 258.72712 Random Glucose 171 H D Lactic Acid Calcium 7.9 L Total Bilirubin 0.2 AST 19 ALT 19 D Alkaline Phosphatase 143 H Creatine Kinase Creatine Kinase Index CK-MB (CK-2) Troponin I Total Protein 6.3 L Albumin 2.7 L 07/09/17 07/09/17 07/09/17 10:00 10:23 10:46 WBC RBC Hgb Hct MCV MCH MCHC RDW Plt Count MPV Neutrophils % Lymphocytes % Monocytes % Eosinophils % Basophils % PT with INR 11.40 INR 1.01 PTT (Actin FS) 65.9 H D Fibrinogen Anticoagulation Therapy Puncture Site ABG pH ABG pCO2 at Pt Temp ABG pO2 at Pt Temp ABG HCO3 ABG O2 Sat (Measured) ABG O2 Content ABG Base Excess Parag Test O2 Delivery Device Oxygen Flow Rate Vent Mode Vent Rate Mechanical Rate Pressure Support Vent Sodium Potassium Chloride Carbon Dioxide Anion Gap BUN Creatinine Creat Clearance w eGFR POC Glucometer 176 Random Glucose Lactic Acid Calcium Total Bilirubin AST ALT Alkaline Phosphatase Creatine Kinase Creatine Kinase Index CK-MB (CK-2) Troponin I Total Protein Albumin 07/09/17 07/09/17 07/09/17 18:06 18:15 18:15 WBC 13.4 H D RBC 4.42 Hgb 11.6 Hct 37.6 MCV 85.0 MCH 26.2 MCHC 30.8 L RDW 15.1 Plt Count 78 L D MPV 10.3 Neutrophils % 84.3 H D Lymphocytes % 10.3 D Monocytes % 4.2 Eosinophils % 0.4 Basophils % 0.8 PT with INR Cancelled INR Cancelled PTT (Actin FS) Fibrinogen Cancelled Anticoagulation Therapy Puncture Site ABG pH ABG pCO2 at Pt Temp ABG pO2 at Pt Temp ABG HCO3 ABG O2 Sat (Measured) ABG O2 Content ABG Base Excess Parag Test O2 Delivery Device Oxygen Flow Rate Vent Mode Vent Rate Mechanical Rate Pressure Support Vent Sodium Potassium Chloride Carbon Dioxide Anion Gap BUN Creatinine Creat Clearance w eGFR POC Glucometer 264 Random Glucose Lactic Acid Calcium Total Bilirubin AST ALT Alkaline Phosphatase Creatine Kinase Creatine Kinase Index CK-MB (CK-2) Troponin I Total Protein Albumin 07/09/17 07/09/17 07/09/17 18:15 18:15 18:15 WBC RBC Hgb Hct MCV MCH MCHC RDW Plt Count MPV Neutrophils % Lymphocytes % Monocytes % Eosinophils % Basophils % PT with INR INR PTT (Actin FS) 57.8 H Fibrinogen Anticoagulation Therapy Puncture Site ABG pH ABG pCO2 at Pt Temp ABG pO2 at Pt Temp ABG HCO3 ABG O2 Sat (Measured) ABG O2 Content ABG Base Excess Parag Test O2 Delivery Device Oxygen Flow Rate Vent Mode Vent Rate Mechanical Rate Pressure Support Vent Sodium 135 L Potassium 4.7 Chloride 103 Carbon Dioxide 23 Anion Gap 9 BUN 9 Creatinine 0.9 Creat Clearance w eGFR > 60 POC Glucometer Random Glucose 199 H Lactic Acid Calcium 8.0 L Total Bilirubin 0.1 L D AST 26 D ALT 18 Alkaline Phosphatase 144 H Creatine Kinase 183 Creatine Kinase Index 0.5 CK-MB (CK-2) < 1.000 Troponin I < 0.02 Total Protein 7.1 Albumin 2.8 L 07/09/17 07/09/17 07/09/17 21:30 21:30 21:40 WBC RBC Hgb Hct MCV MCH MCHC RDW Plt Count MPV Neutrophils % Lymphocytes % Monocytes % Eosinophils % Basophils % PT with INR 13.60 H INR 1.20 H PTT (Actin FS) 35.2 H D Fibrinogen < 100.0 L* Anticoagulation Therapy Puncture Site Md puncture ABG pH 7.24 L* ABG pCO2 at Pt Temp 56.0 H ABG pO2 at Pt Temp 103.0 H ABG HCO3 23.0 ABG O2 Sat (Measured) 97.6 ABG O2 Content 15.9 ABG Base Excess -4.4 L Parag Test Positive O2 Delivery Device Simple mask Oxygen Flow Rate 6l Vent Mode Vent Rate Mechanical Rate Pressure Support Vent Sodium Potassium Chloride Carbon Dioxide Anion Gap BUN Creatinine Creat Clearance w eGFR POC Glucometer Random Glucose Lactic Acid Calcium Total Bilirubin AST ALT Alkaline Phosphatase Creatine Kinase Creatine Kinase Index CK-MB (CK-2) Troponin I Total Protein Albumin 07/09/17 07/09/17 07/10/17 21:45 23:30 05:55 WBC 8.1 D RBC 4.13 Hgb 11.0 Hct 34.3 MCV 83.1 MCH 26.6 MCHC 32.0 RDW 15.0 Plt Count 79 L MPV 9.1 D Neutrophils % 75.0 Lymphocytes % 15.9 D Monocytes % 8.5 D Eosinophils % 0.3 Basophils % 0.3 PT with INR INR PTT (Actin FS) Fibrinogen Anticoagulation Therapy No Result Required. Puncture Site No Result Required. ABG pH 7.27 L ABG pCO2 at Pt Temp 51.2 H ABG pO2 at Pt Temp 134.0 H D ABG HCO3 22.7 ABG O2 Sat (Measured) 98.9 ABG O2 Content 16.4 ABG Base Excess -4.1 L Parag Test No Result Required. O2 Delivery Device Simple mask Oxygen Flow Rate 5l Vent Mode No Result Required. Vent Rate No Result Required. Mechanical Rate No Result Required. Pressure Support Vent No Result Required. Sodium Potassium Chloride Carbon Dioxide Anion Gap BUN Creatinine Creat Clearance w eGFR POC Glucometer Random Glucose Lactic Acid 0.5 Calcium Total Bilirubin AST ALT Alkaline Phosphatase Creatine Kinase Creatine Kinase Index CK-MB (CK-2) Troponin I Total Protein Albumin 07/10/17 07/10/17 05:55 05:55 WBC RBC Hgb Hct MCV MCH MCHC RDW Plt Count MPV Neutrophils % Lymphocytes % Monocytes % Eosinophils % Basophils % PT with INR 13.60 H INR 1.20 H PTT (Actin FS) Fibrinogen Anticoagulation Therapy Puncture Site ABG pH ABG pCO2 at Pt Temp ABG pO2 at Pt Temp ABG HCO3 ABG O2 Sat (Measured) ABG O2 Content ABG Base Excess Parag Test O2 Delivery Device Oxygen Flow Rate Vent Mode Vent Rate Mechanical Rate Pressure Support Vent Sodium 136 Potassium 4.7 Chloride 106 Carbon Dioxide 26 Anion Gap 4 L BUN 10 Creatinine 1.1 H D Creat Clearance w eGFR POC Glucometer Random Glucose 246 H D Lactic Acid Calcium 8.0 L Total Bilirubin AST ALT Alkaline Phosphatase Creatine Kinase Creatine Kinase Index CK-MB (CK-2) Troponin I Total Protein Albumin Active Medications Generic Name Dose Route Start Last Admin Trade Name Freq PRN Reason Stop Dose Admin Atorvastatin Calcium 10 mg 07/09/17 22:00 07/09/17 23:34 Lipitor - PO Not Given HS [facility] Budesonide/Formoterol Fumarate 1 puff 07/09/17 10:00 07/09/17 23:34 Symbicort 160/4.5mcg - IH 1 puff BID JENNIFER Administration Clopidogrel Bisulfate 75 mg 07/09/17 10:07/09/17 10:11 Plavix - PO Not Given DAILY JENNIFER Escitalopram Oxalate 20 mg 07/09/17 22:00 07/09/17 23:33 Lexapro - PO Not Given HS JENNIFER Gabapentin 600 mg 07/09/17 10:00 07/09/17 23:34 Neurontin - PO Not Given BID JENNIFER Hydromorphone HCl 0.5 mg 07/09/17 19:57 07/10/17 06:40 Dilaudid Injection - IVPUSH 0.5 mg Q3H PRN Administration PAIN Sodium Chloride 1,000 mls @ 75 mls/hr 07/09/17 06:30 07/09/17 21:30 Normal Saline - IV 75 mls/hr ASDIR JENNIFER Administration HEPARIN SOD,PORK IN 0.45% NACL 25,000 units in 500 mls @ 20 mls/hr 07/09/17 14 :15 07/09/17 21:30 Heparin-1/2ns 25,000 Units/500 IVPB 100 units/hr TITR JENNIFER 2 mls/hr Protocol Administration 1,000 UNITS/HR Alteplase, Recombinant 25 mg/ 250 mls @ 10 mls/hr 07/10/17 04:20 07/10/17 04: 21 Sodium Chloride CVP 07/10/17 15:14 10 mls/hr ASDIR ONE Administration Protocol Insulin Aspart 1 vial 07/09/17 06:30 07/10/17 06:35 Novolog Vial Sliding Scale - SQ Not Given Q4H [facility] Protocol Loratadine 10 mg 07/09/17 06:47 Claritin - PO DAILY PRN allergies Magnesium Oxide 400 mg 07/09/17 07:43 Mag-Ox - PO DAILY PRN MODERATE PAIN Mirtazapine 30 mg 07/09/17 22:00 07/09/17 23:34 Remeron - PO Not Given HS JENNIFER Montelukast Sodium 10 mg 07/09/17 22:00 07/09/17 23:34 Singulair - PO Not Given HS [facility] Non-Formulary Medication 50 mg 07/09/17 10:00 Dolutegravir Sodium PO DAILY [facility] Non-Formulary Medication 1 each 07/09/17 22:00 Emtricitabine/Tenofov Alafenam [Descovy 200-25 Mg Tablet (Nf)] PO HS JENNIFER Ondansetron HCl 4 mg 07/09/17 14:29 Zofran Injection IVPUSH Q6H PRN NAUSEA AND/OR VOMITING Pantoprazole Sodium 20 mg 07/09/17 10:00 07/09/17 23:34 Protonix - PO Not Given BID JENNIFER Promethazine HCl 12.5 mg 07/09/17 14:29 Phenergan Injection - IVPUSH Q6H PRN NAUSEA-FOR RESCUE AFTER 15 MIN Zolpidem Tartrate 5 mg 07/09/17 22:00 07/09/17 23:33 Ambien - PO Not Given HS [facility] ASSESSMENT/PLAN: 57 yo woman w/ pmh of HIV (CV4 809, VL 80 on 07/04; on ARVs), DM2, HTN, CAD (s/p cardiac stent 04/15), severe PAD s/p BL SFA stents (04/17, 05/18), initially presented w/ BL LE pain, swelling and claudication in the setting of Plavix/ ASA non-compliance due to prescription shortage. Neuro: #Pain Control: - on dilaudid 0.5 Q3 PRN - placed on oxycodone 5 Q6H prn #psych: - contiue lexapro - continue zolpidem CV: #CAD: PTCA on 04/15 - COntinue on plavix #HTN: hold home meds for now #HLD: - Can hold statin given possible rhabdo from reperfusion injury - Consider fibrate # Arterio-embolism: underwent angiogram with angioplasty/stent placement in right LE - On Heparin gtt. - S/P TPA infusion to LLE yesterday with catheter removal this AM with good success as patient had improving doppler exams - Will hold off on RLE procedure to allow for possible resolution of clot burden and decrease acute anesthesia/ contrast burden - Neuro/pulse checks Q2H Renal: #BRENDAN, resolved, (1.3 on admission, now 0.9) -Avoid nephrotoxic agents -Continue IVF NS 75cc/hr Endo: #DM2 - A1C 13.3 on 07/04 - BGM & ISS q4h ID: #HIV - CV4 809, VL 80 on 07/04; on HAART - C/W Tivicay and Descovy - f/u as outpt for further management w/ PCP FEN: #FEN: - NS 75cc/hr - lytes prn - diabetic diet PPX: - Heparin gtt - ppi DISPO: - Needs ICU montioring given tenuous vascular status with need fro frequent monitoring - FULL code Visit type - Emergency Visit Emergency Visit: No - New Patient This patient is new to me today: Yes Date on this admission: 07/10/17 - Critical Care Critical Care patient: Yes Total Critical Care Time (in minutes): 35 Critical Care Statement: The care of this patient involved high complexity decision making to prevent further life threatening deterioration of the patient 's condition and/or to evaluate & treat vital organ system(s) failure or risk of failure. - Discharge Referral Referred to [facility] No
[2017-07-10] MEDS ORDERED: ceFAZolin SODIUM 1 GM VIAL IVPB ONE (08:10)
[2017-07-10] MEDS ORDERED: LIDOCAINE HCL 1%, 10 MG/ML (20ML VIAL) NR ONE (08:14)
--- NOTE | 2017-07-10 08:37 | PN ---
Progress Note (short form) - Note Progress Note: Vascular Surgery S/P left lower ext angiogram. Two vessel runoff into left foot. Dopplerable DP and PT pulse. Pt should go onto AC Will start heparin at 1000units a hour to make therapeutic Cardiology eval for thrombus in both legs. Gabriel nolasco DO Problem List - Problems (1) Ischemia of both lower extremities Code(s): I99.8 - OTHER DISORDER OF CIRCULATORY SYSTEM
[2017-07-10] MEDS ORDERED: HEPARIN NA (PORCINE) 5,000 UNITS/ML 1ML VIAL IVPUSH PRN ×2 (08:42)
[2017-07-10] MEDS ORDERED: LORATADINE 10 MG TABLET PO PRN (08:56)
[2017-07-10] MEDS ORDERED: PROMETHAZINE HCL 25 MG/1 ML VIAL IVPUSH PRN (08:56)
[2017-07-10] MEDS ORDERED: MAGNESIUM OXIDE 400 MG TABLET (FP) PO PRN (08:56)
[2017-07-10] MEDS ORDERED: ONDANSETRON 4 MG/2 ML VIAL IVPUSH PRN (08:56)
[2017-07-10] MEDS ORDERED: HEPARIN NA (PORCINE) 5,000 UNITS/ML 1ML VIAL IVPUSH ONE (09:06)
--- NOTE | 2017-07-10 09:23 | PN ---
Physical Exam: SUBJECTIVE: Patient seen and examined. Just came out of OR. Patient has L calf pain currently. OBJECTIVE: Vital Signs Period Temp Pulse Resp BP Sys/Cota Pulse Ox Last 24 Hr 96 F-98.9 F 92-123 12-114 97-170/62-102 93-100 GENERAL: lethargic from anesthesia, but arousable EYES: sclera anicteric, conjunctiva clear ENT: oropharynx clear without exudates, MMM LUNGS: poor effort, but cta HEART: tachycardic, regular rhythm ABDOMEN: Soft, ntnd LOWER EXTREMITIES: L DP/PT +dopplers, calf tender and warm, foot cooler CBC, BMP 07/10/17 05:55 07/10/17 05:55 Hepatic Panel Total Bilirubin 0.1 mg/dL (0.2-1.0) L D 07/09/17 18:15 AST 26 U/L (15-37) D 07/09/17 18:15 ALT 18 U/L (12-78) 07/09/17 18:15 Alkaline Phosphatase 144 U/L (45-117) H 07/09/17 18:15 Albumin 2.8 g/dl (3.4-5.0) L 07/09/17 18:15 INR, PTT INR 1.20 (0.82-1.09) H 07/10/17 05:55 Fibrinogen 110.0 mg/dL (238-498) L 07/10/17 05:55 Active Medications Acetaminophen (Tylenol -) 325 mg PO Q6H PRN PRN Reason : PAIN Last Admin: 07/10/17 12:37 Dose: 325 mg Atorvastatin Calcium (Lipitor -) 10 mg PO HS [facility] Budesonide/Formoterol Fumarate (Symbicort 160/4.5mcg -) 1 puff IH BID [facility] Last Admin: 07/10/17 16:31 Dose: Not Given Chlorhexidine Gluconate (Hibiclens For Decolonization -) 1 applic TP [facility] Clopidogrel Bisulfate (Plavix -) 75 mg PO DAILY [facility] Last Admin: 07/10/17 12:18 Dose: 75 mg Escitalopram Oxalate (Lexapro -) 20 mg PO HS [facility] Gabapentin (Neurontin -) 600 mg PO BID [facility] Last Admin: 07/10/17 12:17 Dose: 600 mg Heparin Sodium (Porcine) (Heparin -) 1,000 unit IVPUSH PRN PRN PRN Reason: Heparin Heparin Sodium (Porcine) (Heparin -) 5,000 unit IVPUSH PRN PRN PRN Reason: Heparin Hydromorphone HCl (Dilaudid Injection -) 0.5 mg IVPUSH Q3H PRN PRN Reason: PAIN Last Admin: 07/10/17 13:57 Dose: 0.5 mg HEPARIN SOD,PORK IN 0.45% NACL (Heparin-1/2ns 25,000 Units/500) 25,000 units in 500 mls @ 20 mls/hr IVPB TITR JENNIFER; 1,000 UNITS/HR PRN Reason: Protocol Last Admin: 07/10/17 09:31 Dose: 1,000 units/hr, 20 mls/hr Sodium Chloride (Normal Saline -) 1,000 mls @ 75 mls/hr IV ASDIR JENNIFER Last Admin: 07/10/17 10:42 Dose: 75 mls/hr Insulin Aspart (Novolog Vial Sliding Scale -) 1 vial SQ Q4H JENNIFER PRN Reason: Protocol Last Admin: 07/10/17 15:03 Dose: Not Given Loratadine (Claritin -) 10 mg PO DAILY PRN PRN Reason: allergies Magnesium Oxide (Mag-Ox -) 400 mg PO DAILY PRN PRN Reason: MODERATE PAIN Mirtazapine (Remeron -) 30 mg PO HS [facility]ENN[facility]ER Montelukast Sodium (Singulair -) 10 mg PO HS [facility] Mupirocin (Bactroban Ointment (For Decolonization) -) 1 applic NS BID [facility] Stop: 07/15/17 09:59 Last Admin: 07/10/17 12:18 Dose: 1 applic Non-Formulary Medication (Dolutegravir Sodium) 50 mg PO DAILY [facility] Non-Formulary Medication (Emtricitabine/Tenofov Alafenam [Descovy 200-25 Mg Tablet (Nf)]) 1 each PO HS [facility] Ondansetron HCl (Zofran Injection) 4 mg IVPUSH Q6H PRN PRN Reason: NAUSEA AND/OR VOMITING Oxycodone HCl (Roxicodone -) 5 mg PO Q6H PRN PRN Reason: PAIN Last Admin: 07/10/17 12:36 Dose: 5 mg Pantoprazole Sodium (Protonix -) 20 mg PO BID [facility] Last Admin: 07/10/17 12:18 Dose: 20 mg Promethazine HCl (Phenergan Injection -) 12.5 mg IVPUSH Q6H PRN PRN Reason: NAUSEA-FOR RESCUE AFTER 15 MIN Zolpidem Tartrate (Ambien -) 5 mg PO HS [facility] ASSESSMENT/PLAN: 57yo woman with PMH HIV (CD4 725, VL 180 on 07/04; on HAART), DM2, HTN, CAD (s/p cardiac stent 04/15), BL SFA stents (04/17, 05/18), who p/w BL LE pain, swelling and inability to ambulate for last two days and found to have b/l occlusions of LE in the setting of medication non-compliance (Plavix). #s/p LLE angiogram; SFA, popliteal, tibial angioplasty; SFA stent placement w/ TPA infusion -Vascular surgery by Dr. Guzmán -Continue heparin gtt -doppler checks -Dialudid 0.5mg q3h PRN for pain #bilateral thrombi (LLE extensive DVT + R SFA occlusion) -Heme consulted. Appreciate recommendations #BRENDAN, resolving -Avoid nephrotoxic agents -Continue IVF NS 75cc/hr #DM2 - A1C 13.3 on 07/04 - BGM & ISS q4h #HTN - hold home meds for now #HIV - CV4 809, VL 80 on 07/04; on HAART - C/W Tivicay and Descovy - f/u as outpt for further management w/ PCP #CAD (s/p cardiac stent) - c/w Plavix #HLD - Triglycerides 1264, Cholesterol 278 on 07/04 -lipitor 10mg HS #PPX -DVT - Heparin gtt -GI - c/w home ppi #FEN: NS 75cc/hr / lytes wnl / DM, Na controlled diet #DISPO: ICU management FULL code d/w Dr. Per Murray MD PGY1 - Internal Medicine Visit type - Emergency Visit Emergency Visit: No - New Patient This patient is new to me today: No - Critical Care Critical Care patient: Yes Total Critical Care Time (in minutes): 45 Critical Care Statement: The care of this patient involved high complexity decision making to prevent further life threatening deterioration of the patient 's condition and/or to evaluate & treat vital organ system(s) failure or risk of failure.
[2017-07-10] MEDS: HEPARIN SOD,PORK IN 0.45% NACL 25,000 UNITS/500 ML INFUS.BAG IVPB SCH (09:31)
[2017-07-10] MEDS ORDERED: HYDROmorphone HCL CARPU-JECT 1 MG/1 ML DISP.SYRIN IVPUSH ONE (10:06)
--- NOTE | 2017-07-10 10:40 | CONSULT ---
Consult Consult Specialty:: Hematology/Oncology - History of Present Illness History of Present Illness: 57yo woman with PMH HIV (CD4 725, VL 180 on 07/04; on HAART), DM2, HTN, CAD (s/p cardiac stent 04/15), BL SFA stents (04/17, 05/18), who p/w BL LE pain, swelling and inability to ambulate for last two days and found to have b/l occlusions of LE in the setting of medication non-compliance (Plavix). #s/p LLE angiogram; SFA, popliteal, tibial angioplasty; SFA stent placement w/ TPA infusion - - History Source History Provided By: Patient, Medical Record - Past Medical History Cardio/Vascular: Yes: HTN, Hyperlipdemia Pulmonary: Yes: Asthma Hepatobiliary: Yes: Cholelithiasis ...LMP: 09/30/09 Infectious Disease: Yes: HIV Endocrine: Yes: Diabetes Mellitus - Past Surgical History Past Surgical History: Yes: Cholecystectomy - Alcohol/Substance Use Hx Alcohol Use: No - Smoking History Smoking history: Former smoker Have you smoked in the past 12 months: No Aproximately how many cigarettes per day: 5 If you are a former smoker, when did you quit?: 2 weeks ago - Social History ADL: Independent History of Recent Travel: No Home Medications - Allergies Allergies/Adverse Reactions: Allergies Allergy/AdvReac Type Severity Reaction Status Date / Time No Known Allergies Allergy Verified 07/09/17 00:45 - Home Medications Home Medications: Ambulatory Orders Gabapentin [Neurontin] 600 mg PO BID 07/06/16 Magnesium 200 mg PO DAILY PRN 07/06/16 Dolutegravir Sodium [Tivicay] 50 mg PO DAILY #30 tablet 04/04/17 Emtricitabine/Tenofov Alafenam [Descovy 200-25 mg Tablet (Nf)] 1 each PO HS #30 tablet 04/04/17 Lisinopril 5 mg PO HS #30 tablet 04/04/17 Loratadine [Claritin -] 10 mg PO DAILY PRN #30 tablet 04/04/17 Montelukast Na [Singulair -] 10 mg PO HS 04/26/17 Clopidogrel Bisulfate [Plavix -] 75 mg PO DAILY #30 tablet 04/27/17 Aspirin [Aspirin EC] 81 mg PO DAILY 05/02/17 Insulin Glargine,Hum.rec.anlog [Toujeo Solostar] 35 unit SQ HS 05/02/17 Insulin Lispro [Humalog Kwikpen U-200] 15 unit SQ TID #7 ea 05/02/17 Omeprazole 20 mg PO BID #60 tablet. 06/01/17 Budesonide/Formeterol Fumarate [SYMBICORT 160/4.5mcg -] 1 puff IH BID 07/04/17 Clonazepam [Klonopin -] 0.5 mg PO TID #90 tablet MDD 1.5mg 07/04/17 Escitalopram Oxalate [Lexapro -] 20 mg PO HS #30 tablet 07/04/17 Mirtazapine [Remeron -] 30 mg PO HS #30 tablet 07/04/17 Olopatadine HCl [Pataday] 1 drop OP DAILY #2.5 ml 07/04/17 Oxybutynin Chloride [Oxybutynin Chloride ER] 10 mg PO DAILY 07/04/17 Zolpidem Tartrate [Ambien] 5 mg PO HS #30 tab MDD 1 07/04/17 Pravastatin Sodium [Pravachol (Nf)] 40 mg PO HS 07/09/17 Family Disease History - Family Disease History Family Disease History: Heart Disease: Grandparent, Father Physical Exam Vital Signs: Vital Signs Temperature 98 F 07/10/17 08:45 Pulse Rate 102 H 07/10/17 10:32 Respiratory Rate 18 07/10/17 10:32 Blood Pressure 112/72 07/10/17 10:32 O2 Sat by Pulse Oximetry (%) 100 07/09/17 21:15 Constitutional: Yes: Moderate Distress, Other (in pain) Eyes: Yes: Conjunctiva Clear HENT: Yes: Atraumatic, Normocephalic Neck: Yes: Supple Cardiovascular: Yes: Regular Rate and Rhythm, Tachycardia Respiratory: Yes: Regular, CTA Bilaterally Gastrointestinal: Yes: Normal Bowel Sounds, Soft, Abdomen, Obese Musculoskeletal: Yes: WNL Edema: Yes Edema: LLE: 1+ Peripheral Pulses WNL: Yes Neurological: Yes: Alert, Oriented Labs: CBC, BMP 07/10/17 05:55 07/10/17 05:55 Imaging - Results Cat Scan: Report Reviewed Ultrasound: Report Reviewed Assessment/Plan Arterial Thrombi -risk factors including her h/o CAD, HTN , DM,vasculature in a pt with HIV and an active daily smoker -on heparin for now , PTT monitoring, will eventually need to be bridged to coumadin once deemed much more stable -off of aspirin ? -on Plavix -cardiology consult to be considered ( will likely need DAPT with Warfarin or Only Plavix with Warfarin ) -will send APLA/Rheum w/u to r/o hematological causes of arterial thrombi -not JEFFERY -will dw vascular -d/w ICU resident Thrombocytopenia -likely consumptive etiology -not JEFFERY HIV -on Anti-retrovirals -pain control
[2017-07-10] MEDS: SODIUM CHLORIDE 1,000 ML IV SCH (10:42)
--- NOTE | 2017-07-10 11:08 | OP ---
DATE OF OPERATION: 07/09/2017 PREOPERATIVE DIAGNOSIS: Left lower extremity ischemia. POSTOPERATIVE DIAGNOSIS: Left lower extremity ischemia. PROCEDURE: Aortogram, left lower extremity angiogram, superficial femoral artery, popliteal artery, tibial artery angioplasty with superficial femoral artery stent placement. SURGEON: Gabriel Wilder MD ANESTHESIA: Fractional. BLOOD LOSS: 50 mL. INDICATIONS: The patient is a 57-year-old female who come in to [facility] ER last night complaining of bilateral lower extremity leg pain. She has had this leg pain for over now 2-3 weeks. She has gone to multiple hospital ERs including [facility], where she recently went, where they did an MRI of her calf and told her that she had sciatica. Back in May and June, she had a left lower extremity angiogram/angioplasty with popliteal artery stent placement. In June, she had a right lower extremity angioplasty. Since then, she has not followed up with us, and we have not seen her in the office. The patient has not taken her Plavix since then, and the patient has continued smoking despite having both of those procedures. She now comes in complaining of bilateral lower extremity leg pain. She had a CTA done in the ER showing that she has bilateral lower extremity SFA occlusions including the stents in the left leg. She was started on IV heparin, and it was decided that she would need a diagnostic angiogram. Patient was consented for the procedure understanding all risks, benefits, and alternatives and then taken to the operating room. PROCEDURE IN DETAIL: Once in the operating suite, she was placed on the operating table in the supine manner, and the area of the right and left groin were prepped and draped in the sterile surgical manner. We then went ahead and, under ultrasound guidance, visualized the right common femoral artery, and 10 mL of 0.5% lidocaine was injected there. We then took our micropuncture needle, punctured the right common femoral artery. Micropuncture wire was inserted, micropuncture sheath was inserted, and a traditional 5-Lao sheath was inserted. We then placed a 0.035 floppy guidewire up into the aorta followed by an Omni Flush catheter. We then shot an aortogram showing that the aorta and iliac arteries were without any disease. We then brought our 0.035 floppy guidewire up and over to the left common femoral artery, and Omni Flush catheter followed. We then shot an angiogram of the left lower extremity showing that the common femoral artery and the profunda were patent, but the SFA had very sluggish flow, and the mid SFA to SFA were occluded, and we did not see any other runoff come below the knee. We did see the tibial vessels light up very late in our images. At this point, we placed a 0.035 stiff guidewire into the SFA, removed our Omni Flush catheter and placed a 6 x 45 crossover sheath. We then administered to the patient 5000 units of IV heparin. We then went ahead and placed our wire down the SFA through the stents and down into the peroneal artery. At this junction, we then went ahead and used a 6 x 200 Ultraverse Balloon and performed angioplasty of the entire SFA that was occluded including the stents and the outflow. Completion angiogram still showed that the flow in the SFA was sluggish. When we did the angiogram, we showed that the SFA that was above the stent was dissected, and we went ahead and placed 6 x 10 stent there and ballooned it in place using a 6 x 10 balloon. Completion angiogram now showed that the flow got a little bit better, but there was still an outflow stenosis. At this point, we went ahead and placed our wire into the peroneal artery. We exchanged our wire in the peroneal artery to a 0.014 company pilot wire, and we then used a 2.5 x 220 Ultraverse Balloon and performed angioplasty of the tibial artery and the tibial artery in the TP trunk. At this point, the outflow got a little bit better, but there was still a significant amount of clot that we could visualize below the knee. Throughout the procedure, we were encountering clot. We started to see clot in the SFA, and there was a significant amount of clot below the knee, which is why on our initial angiogram, we were not able to see a good runoff into the foot. We then went ahead, to see better runoff, and placed a Quick-Cross catheter down into the the popliteal artery, which was open, and then shot an angiogram for below the knee, and we saw that the entire below the knee that there was thrombosis. At this point, we decided that the best next rule of action would be to start lysis on the patient and give the patient TPA. The circulation in the leg was open from the common femoral artery down to the popliteal artery now, but the outflow was a problem, and that is where all the thrombosis is. At this point, we went ahead and placed a thrombolysis catheter into popliteal artery and we then went ahead and started 1 mg of TPA and 50 mL of normal saline through the catheter. Patient was given IV heparin peripherally, and the patient will be taken to the PACU now and then to the ICU. We will then continue the TPA perfusion, watch the foot with pulse checks, and bring the patient back for a thrombolysis check in the morning. The catheter was secured in a sterile surgical manner using Tegaderm, and the patient was brought over to PACU in a stable surgical manner. Total blood loss was 50 mL. GABRIEL WILDER DO [id number]
[2017-07-10] MEDS: GABAPENTIN 300 MG CAPSULE (FP) PO SCH ×2 (12:17→21:26)
[2017-07-10] MEDS: PANTOPRAZOLE 20 MG TABLET (FP) PO SCH ×2 (12:18→21:26)
[2017-07-10] MEDS: CLOPIDOGREL BISULFATE 75 MG TABLET (FP) PO SCH (12:18)
[2017-07-10] MEDS: MUPIROCIN 2% TOPICAL OINTMENT FOR DECOLONIZATION NS SCH ×2 (12:18→21:25)
[2017-07-10] MEDS: oxyCODONE HCL 5 MG TABLET PO PRN ×2 (12:36→18:10)
[2017-07-10] MEDS: ACETAMINOPHEN 325 MG TABLET (FP) PO PRN ×2 (12:37→18:10)
--- NOTE | 2017-07-10 13:29 | PN ---
Teaching Attending Note Name of Resident: Catalina Murray ATTENDING PHYSICIAN STATEMENT I saw and evaluated the patient. I reviewed the resident's note and discussed the case with the resident. I agree with the resident's findings and plan as documented. SUBJECTIVE: Patient is in ICU, lying in bed comfortably OBJECTIVE: Vital Signs Temperature 98 F 07/10/17 12:00 Pulse Rate 112 H 07/10/17 12:00 Respiratory Rate 18 07/10/17 12:00 Blood Pressure 97/69 07/10/17 12:00 O2 Sat by Pulse Oximetry (%) 100 07/09/17 21:15 CBCD WBC 8.1 K/mm3 (4.0-10.0) D 07/10/17 05:55 RBC 4.13 M/mm3 (3.60-5.2) 07/10/17 05:55 Hgb 11.0 GM/dL (10.7-15.3) 07/10/17 05:55 Hct 34.3 % (32.4-45.2) 07/10/17 05:55 MCV 83.1 fl (80-96) 07/10/17 05:55 MCHC 32.0 g/dl (32.0-36.0) 07/10/17 05:55 RDW 15.0 % (11.6-15.6) 07/10/17 05:55 Plt Count 79 K/MM3 (134-434) L 07/10/17 05:55 MPV 9.1 fl (7.5-11.1) D 07/10/17 05:55 CMP Sodium 136 mmol/L (136-145) 07/10/17 05:55 Potassium 4.7 mmol/L (3.5-5.1) 07/10/17 05:55 Chloride 106 mmol/L (98-107) 07/10/17 05:55 Carbon Dioxide 26 mmol/L (21-32) 07/10/17 05:55 Anion Gap 4 (8-16) L 07/10/17 05:55 BUN 10 mg/dL (7-18) 07/10/17 05:55 Creatinine 1.1 mg/dL (0.55-1.02) H D 07/10/17 05:55 Creat Clearance w eGFR > 60 (>60) 07/09/17 18:15 Random Glucose 246 mg/dL (74-106) H D 07/10/17 05:55 Calcium 8.0 mg/dL (8.5-10.1) L 07/10/17 05:55 Total Bilirubin 0.1 mg/dL (0.2-1.0) L D 07/09/17 18:15 AST 26 U/L (15-37) D 07/09/17 18:15 ALT 18 U/L (12-78) 07/09/17 18:15 Alkaline Phosphatase 144 U/L (45-117) H 07/09/17 18:15 Total Protein 7.1 g/dl (6.4-8.2) 07/09/17 18:15 Albumin 2.8 g/dl (3.4-5.0) L 07/09/17 18:15 CARDIAC ENZYMES Creatine Kinase 183 IU/L (26-192) 07/09/17 18:15 Troponin I < 0.02 ng/ml (0.00-0.05) 07/09/17 18:15 Current Medications Generic Name Dose Route Start Last Admin Trade Name Freq PRN Reason Stop Dose Admin Acetaminophen 325 mg 07/10/17 11:38 07/10/17 12:37 Tylenol - PO 325 mg Q6H PRN Administration PAIN Atorvastatin Calcium 10 mg 07/10/17 22:00 Lipitor - PO HS [facility] Budesonide/Formoterol Fumarate 1 puff 07/10/17 10:00 Symbicort 160/4.5mcg - IH BID JENNIFER Chlorhexidine Gluconate 1 applic 07/10/17 22:00 Hibiclens For Decolonization - TP HS [facility] Clopidogrel Bisulfate 75 mg 07/10/17 10:00 07/10/17 12:18 Plavix - PO 75 mg DAILY JENNIFER Administration Escitalopram Oxalate 20 mg 07/10/17 22:00 Lexapro - PO HS JENNIFER Gabapentin 600 mg 07/10/17 10:00 07/10/17 12:17 Neurontin - PO 600 mg BID JENNIFER Administration Heparin Sodium (Porcine) 1,000 unit 07/10/17 08:42 Heparin - IVPUSH PRN PRN Heparin Heparin Sodium (Porcine) 5,000 unit 07/10/17 08:42 Heparin - IVPUSH PRN PRN Heparin Hydromorphone HCl 0.5 mg 07/10/17 08:56 07/10/17 09:23 Dilaudid Injection - IVPUSH 0.5 mg Q3H PRN Administration PAIN Alteplase, Recombinant 25 mg/ 250 mls @ 10 mls/hr 07/10/17 04:20 07/10/17 04: 21 Sodium Chloride CVP 07/10/17 15:14 10 mls/hr ASDIR ONE Administration Protocol HEPARIN SOD,PORK IN 0.45% NACL 25,000 units in 500 mls @ 20 mls/hr 07/10/17 08 :45 07/10/17 09:31 Heparin-1/2ns 25,000 Units/500 IVPB 1,000 units/hr TITR JENNIFER 20 mls/hr Protocol Administration 1,000 UNITS/HR Sodium Chloride 1,000 mls @ 75 mls/hr 07/10/17 08:56 07/10/17 10:42 Normal Saline - IV 75 mls/hr ASDIR JENNIFER Administration Insulin Aspart 1 vial 07/10/17 10:30 07/10/17 11:22 Novolog Vial Sliding Scale - SQ 4 units Q4H JENNIFER Administration Protocol Loratadine 10 mg 07/10/17 08:56 Claritin - PO DAILY PRN allergies Magnesium Oxide 400 mg 07/10/17 08:56 Mag-Ox - PO DAILY PRN MODERATE PAIN Mirtazapine 30 mg 07/10/17 22:00 Remeron - PO HS JENNIFER Montelukast Sodium 10 mg 07/10/17 22:00 Singulair - PO HS JENN[facility]ER Mupirocin 1 applic 07/10/17 10:00 07/10/17 12:18 Bactroban Ointment (For Decolonization) - NS 07/15/17 09:59 1 applic BID JENNIFER Administration Non-Formulary Medication 50 mg 07/10/17 10:00 Dolutegravir Sodium PO DAILY JENNIFER Non-Formulary Medication 1 each 07/10/17 22:00 Emtricitabine/Tenofov Alafenam [Descovy 200-25 Mg Tablet (Nf)] PO HS JENNIFER Ondansetron HCl 4 mg 07/10/17 08:56 Zofran Injection IVPUSH Q6H PRN NAUSEA AND/OR VOMITING Oxycodone HCl 5 mg 07/10/17 12:21 07/10/17 12:36 Roxicodone - PO 5 mg Q6H PRN Administration PAIN Pantoprazole Sodium 20 mg 07/10/17 10:00 07/10/17 12:18 Protonix - PO 20 mg BID JENNIFER Administration Promethazine HCl 12.5 mg 07/10/17 08:56 Phenergan Injection - IVPUSH Q6H PRN NAUSEA-FOR RESCUE AFTER 15 MIN Zolpidem Tartrate 5 mg 07/10/17 22:00 Ambien - PO HS [facility] Home Medications Medication Instructions Recorded Gabapentin [Neurontin] 600 mg PO BID 07/06/16 Magnesium 200 mg PO DAILY PRN 07/06/16 Dolutegravir Sodium [Tivicay] 50 mg PO DAILY #30 tablet 04/04/17 Emtricitabine/Tenofov Alafenam 1 each PO HS #30 tablet 04/04/17 [Descovy 200-25 mg Tablet (Nf)] Lisinopril 5 mg PO HS #30 tablet 04/04/17 Loratadine [Claritin -] 10 mg PO DAILY PRN #30 tablet 04/04/17 Montelukast Na [Singulair -] 10 mg PO HS 04/26/17 Clopidogrel Bisulfate [Plavix -] 75 mg PO DAILY #30 tablet 04/27/17 Aspirin [Aspirin EC] 81 mg PO DAILY 05/02/17 Insulin Glargine,Hum.rec.anlog 35 unit SQ HS 05/02/17 [Toujeo Solostar] Insulin Lispro [Humalog Kwikpen 15 unit SQ TID #7 ea 05/02/17 U-200] Omeprazole 20 mg PO BID #60 tablet. 06/01/17 Budesonide/Formeterol Fumarate 1 puff IH BID 07/04/17 [SYMBICORT 160/4.5mcg -] Clonazepam [Klonopin -] 0.5 mg PO TID #90 tablet MDD 1.5mg 07/04/17 Escitalopram Oxalate [Lexapro -] 20 mg PO HS #30 tablet 07/04/17 Mirtazapine [Remeron -] 30 mg PO HS #30 tablet 07/04/17 Olopatadine HCl [Pataday] 1 drop OP DAILY #2.5 ml 07/04/17 Oxybutynin Chloride [Oxybutynin 10 mg PO DAILY 07/04/17 Chloride ER] Zolpidem Tartrate [Ambien] 5 mg PO HS #30 tab MDD 1 07/04/17 Pravastatin Sodium [Pravachol (Nf)] 40 mg PO HS 07/09/17 PE: Extremities: doppler positive pulses, warm to touch both LE/ LLE vs yesterday where doppler pulses was absent on LLE and cool to touch. ASSESSMENT AND PLAN: Patient is a 57yo female with pmhx of HTN, HLD, CAD, LKR, CAD s/p Stents, venous insufficiency, and smoking who presents with LLE pain, found to have occlusion of L. Polipteal Artery Stent and minimal flow in Posterior Tibial Artery # Acute Occlusion of L. Polipiteal Artery s/p stent, on TPA drip continue s/p Aortgram, LLE angiogram, SFA,popliteal artery, tibial artery angioplasty, SFA stent placement, infusion of TPA improved LLE . # Acute over chronic kidney disease improved # DM sliding scale with coverage continue # HTN hold BP meds for now since patient is hypotensive # Hx of HIV continue Tivicay and Descovy going to ICU for further management
--- NOTE | 2017-07-10 14:49 | PN ---
Teaching Attending Note Name of Resident: Norbert Washington ATTENDING PHYSICIAN STATEMENT I saw and evaluated the patient. I reviewed the resident's note and discussed the case with the resident. I agree with the resident's findings and plan as documented. SUBJECTIVE: Pt seen and examined in the ICU. Still with significant pain left calf. Peripheral dopplers still with positive pulses. OBJECTIVE: Last Vital Signs Temp Pulse Resp BP Pulse Ox 98.7 F 108 H 18 115/73 100 07/10/17 14:00 07/10/17 14:00 07/10/17 14:00 07/10/17 14:00 07/09/17 21:15 Intake & Output 07/07/17 07/08/17 07/09/17 07/10/17 23:59 23:59 23:59 23:59 Intake Total 2592 959 Output Total 50 500 Balance 2542 459 Weight 70.307 kg 75.013 kg Gen: pain with minimal movement Heart: tachycardic, regular Lung: decreased breath sounds at the bases Abd: soft, nontender Ext: left calf warm, edematous, tender to palpation, extremities warm CBC, BMP 07/10/17 05:55 07/10/17 05:55 Active Medications Acetaminophen (Tylenol -) 325 mg PO Q6H PRN PRN Reason: PAIN Last Admin: 07/10/17 12:37 Dose: 325 mg Atorvastatin Calcium (Lipitor -) 10 mg PO HS [facility] Budesonide/Formoterol Fumarate (Symbicort 160/4.5mcg -) 1 puff IH BID [facility] Chlorhexidine Gluconate (Hibiclens For Decolonization -) 1 applic TP HS [facility] Clopidogrel Bisulfate (Plavix -) 75 mg PO DAILY [facility] Last Admin: 07/10/17 12:18 Dose: 75 mg Escitalopram Oxalate (Lexapro -) 20 mg PO HS [facility] Gabapentin (Neurontin -) 600 mg PO BID [facility] Last Admin: 07/10/17 12:17 Dose: 600 mg Heparin Sodium (Porcine) (Heparin -) 1,000 unit IVPUSH PRN PRN PRN Reason: Heparin Heparin Sodium (Porcine) (Heparin -) 5,000 unit IVPUSH PRN PRN PRN Reason: Heparin Hydromorphone HCl (Dilaudid Injection -) 0.5 mg IVPUSH Q3H PRN PRN Reason: PAIN Last Admin: 07/10/17 13:57 Dose: 0.5 mg Alteplase, Recombinant 25 mg/ (Sodium Chloride) 250 mls @ 10 mls/hr CVP ASDIR ONE PRN Reason: Protocol Stop: 07/10/17 15:14 Last Admin: 07/10/17 04:21 Dose: 10 mls/hr HEPARIN SOD,PORK IN 0.45% NACL (Heparin-1/2ns 25,000 Units/500) 25,000 units in 500 mls @ 20 mls/hr IVPB TITR JENN[facility]ER; 1,000 UNITS/HR PRN Reason: Protocol Last Admin: 07/10/17 09:31 Dose: 1,000 units/hr, 20 mls/hr Sodium Chloride (Normal Saline -) 1,000 mls @ 75 mls/hr IV ASDIR [facility] Last Admin: 07/10/17 10:42 Dose: 75 mls/hr Insulin Aspart (Novolog Vial Sliding Scale -) 1 vial SQ Q4H [facility] PRN Reason: Protocol Last Admin: 07/10/17 11:22 Dose: 4 units Loratadine (Claritin -) 10 mg PO DAILY PRN PRN Reason: allergies Magnesium Oxide (Mag-Ox -) 400 mg PO DAILY PRN PRN Reason: MODERATE PAIN Mirtazapine (Remeron -) 30 mg PO HS [facility] Montelukast Sodium (Singulair -) 10 mg PO HS [facility] Mupirocin (Bactroban Ointment (For Decolonization) -) 1 applic NS BID [facility] Stop: 07/15/17 09:59 Last Admin: 07/10/17 12:18 Dose: 1 applic Non-Formulary Medication (Dolutegravir Sodium) 50 mg PO DAILY [facility] Non-Formulary Medication (Emtricitabine/Tenofov Alafenam [Descovy 200-25 Mg Tablet (Nf)]) 1 each PO HS [facility] Ondansetron HCl (Zofran Injection) 4 mg IVPUSH Q6H PRN PRN Reason: NAUSEA AND/OR VOMITING Oxycodone HCl (Roxicodone -) 5 mg PO Q6H PRN PRN Reason: PAIN Last Admin: 07/10/17 12:36 Dose: 5 mg Pantoprazole Sodium (Protonix -) 20 mg PO BID [facility] Last Admin: 07/10/17 12:18 Dose: 20 mg Promethazine HCl (Phenergan Injection -) 12.5 mg IVPUSH Q6H PRN PRN Reason: NAUSEA-FOR RESCUE AFTER 15 MIN Zolpidem Tartrate (Ambien -) 5 mg PO HS [facility] ASSESSMENT AND PLAN: LLE Thrombi/Limb Ischemia s/p Aortgram/LLE angiogram/SFA, popliteal artery, tibial artery angioplasty/SFA stent placement/iinfusion of TPA CAD HTN DM HIV - continue anticoagulation - doppler checks - plavix - pain control - check CPK - IVF - monitor urine output, creatinine - surgery f/u - continue ICU monitoring critical care time spent in reviewing chart, evaluating patient and formulating plan 35min
[2017-07-10] MEDS: BUDESONIDE/FORMETEROL FUMARATE 160/4.5 mcg INHALER IH SCH ×2 (16:31→22:27)
[2017-07-10] MEDS ORDERED: PT OWN MED DRAWER 7, Y5N ONE ×4 (17:18→21:56)
[2017-07-10] MEDS ORDERED: MIRTAZAPINE 15 MG TABLET (FP) ONE (21:18)
[2017-07-10] MEDS ORDERED: ATORVASTATIN CA 10 MG TABLET (FP) PO SCH (22:00)
[2017-07-10] MEDS ORDERED: CHLORHEXIDINE GLUCONATE 4% CLEANSER FOR DECOLONIZATION TP SCH (22:00)
[2017-07-10] MEDS ORDERED: MIRTAZAPINE 30 MG TABLET (FP) PO SCH (22:00)
[2017-07-10] MEDS ORDERED: ESCITALOPRAM OXALATE 20 MG TABLET (FP) PO SCH (22:00)
[2017-07-10] MEDS ORDERED: MONTELUKAST NA 10 MG TABLET PO SCH (22:00)
[2017-07-10] MEDS ORDERED: PATIENT'S OWN MEDICATION (NON-FORMULARY) (Emtricitabine/Tenofov Alafenam [Descovy 200-25 M PO SCH (22:00)
[2017-07-10] MEDS ORDERED: ZOLPIDEM TARTRATE 5 MG TABLET PO SCH (22:00)
[2017-07-11] MEDS: ACETAMINOPHEN 325 MG TABLET (FP) PO PRN ×2 (00:46→08:01)
[2017-07-11] MEDS: oxyCODONE HCL 5 MG TABLET PO PRN ×2 (00:46→08:00)
[2017-07-11] MEDS: SODIUM CHLORIDE 1,000 ML IV SCH (00:48)
[2017-07-11] MEDS: INSULIN SLIDING SCALE (NOVOLOG) 1 VIAL SQ SCH ×6 (02:37→21:43)
[2017-07-11] MEDS: HYDROmorphone HCL CARPU-JECT 1 MG/1 ML DISP.SYRIN IVPUSH PRN (04:46)
[2017-07-11 06:50] LABS: HEMATOCRIT 29.8 % (32.4-45.2); HEMOGLOBIN 9.6 GM/dL (10.7-15.3); MCHC 32.2 g/dl (32.0-36.0); MEAN CELL VOLUME 83.7 fl (80-96); MEAN PLT VOLUME 10.9 fl (7.5-11.1); PLATELET COUNT 72 K/MM3 (134-434); RBC 3.56 M/mm3 (3.60-5.2); RDW 15.1 % (11.6-15.6); WHITE BLOOD COUNT 7.6 K/mm3 (4.0-10.0)
--- NOTE | 2017-07-11 07:14 | PN ---
Physical Exam: SUBJECTIVE: Patient seen and examined. Has L calf and foot with decreased sensation and motor strength. No chest pain, fever, or chills. OBJECTIVE: Vital Signs Period Temp Pulse Resp BP Sys/Cota Pulse Ox Last 24 Hr 98 F-99.8 F 97-115 18-22 96-150/50-90 97 GENERAL: mild distress, aaox3 EYES: sclera anicteric, conjunctiva clear ENT: oropharynx clear without exudates, MMM LUNGS: CTAB HEART: tachycardic, regular rhythm, no m/r/g ABDOMEN: Soft, ntnd LOWER EXTREMITIES: L DP/PT +dopplers, L calf edematous and tense, extremely ttp ; no sensation on dorsal or plantar aspect of foot. 0/5 plantarflexion/ dorsiflexion CBC, BMP 07/11/17 06:25 07/11/17 06:25 Hepatic Panel Total Bilirubin 0.5 mg/dL (0.2-1.0) D 07/11/17 06:25 AST 339 U/L (15-37) H D 07/11/17 06:25 ALT 65 U/L (12-78) D 07/11/17 06:25 Alkaline Phosphatase 123 U/L (45-117) H 07/11/17 06:25 Albumin 2.4 g/dl (3.4-5.0) L 07/11/17 06:25 INR, PTT INR 1.20 (0.82-1.09) H 07/10/17 05:55 Fibrinogen 342.0 mg/dL (238-498) D 07/11/17 10:15 Phos - 2.1 Mg - 1.7 Fibrinogen - 342 Active Medications Acetaminophen (Tylenol -) 325 mg PO Q6H PRN PRN Reason: PAIN Atorvastatin Calcium (Lipitor -) 10 mg PO [facility] Last Admin: 07/11/17 21:19 Dose: 10 mg Budesonide/Formoterol Fumarate (Symbicort 160/4.5mcg -) 1 puff IH BID [facility] Last Admin: 07/11/17 21:21 Dose: 1 puff Chlorhexidine Gluconate (Hibiclens For Decolonization -) 1 applic TP HS [facility] Last Admin: 07/11/17 21:19 Dose: 1 applic Enoxaparin Sodium (Lovenox -) 80 mg SQ BID [facility] Last Admin: 07/11/17 21:18 Dose: 80 mg Escitalopram Oxalate (Lexapro -) 20 mg PO [facility] Last Admin: 07/11/17 21:18 Dose: 20 mg Fentanyl (Sublimaze Injection -) 50 mcg IVPUSH [id number] PRN PRN Reason: PAIN-PACU ORDER X 4 DOSES ONLY Fentanyl (Sublimaze Injection -) 50 mcg IVPUSH [id number] PRN PRN Reason: PAIN-PACU ORDER X 4 DOSES ONLY Gabapentin (Neurontin -) 600 mg PO BID [facility] Last Admin: 07/11/17 21:18 Dose: 600 mg Hydromorphone HCl (Dilaudid Injection -) 1 mg IVPUSH Q4H PRN PRN Reason: MODERATE PAIN Last Admin: 07/11/17 20:55 Dose: 1 mg Sodium Chloride (Normal Saline -) 1,000 mls @ 75 mls/hr IV ASDIR [facility] Last Admin: 07/11/17 19:00 Dose: 75 mls/hr Insulin Aspart (Novolog Vial Sliding Scale -) 1 vial SQ Q4H [facility] PRN Reason: Protocol Last Admin: 07/11/17 21:43 Dose: 4 units Loratadine (Claritin -) 10 mg PO DAILY PRN PRN Reason: allergies Magnesium Oxide (Mag-Ox -) 400 mg PO DAILY PRN PRN Reason: MODERATE PAIN Mirtazapine (Remeron -) 30 mg PO [facility] Last Admin: 07/11/17 21:18 Dose: 30 mg Montelukast Sodium (Singulair -) 10 mg PO [facility] Last Admin: 07/11/17 21:19 Dose: 10 mg Mupirocin (Bactroban Ointment (For Decolonization) -) 1 applic NS BID [facility] Stop: 07/15/17 09:59 Last Admin: 07/11/17 21:20 Dose: 1 applic Non-Formulary Medication (Dolutegravir Sodium) 50 mg PO DAILY [facility] Non-Formulary Medication (Emtricitabine/Tenofov Alafenam [Descovy 200-25 Mg Tablet (Nf)]) 1 each PO [facility] Last Admin: 07/11/17 21:35 Dose: 1 each Ondansetron HCl (Zofran Injection) 4 mg IVPUSH Q6H PRN PRN Reason: NAUSEA AND/OR VOMITING Ondansetron HCl (Zofran Injection) 4 mg IVPUSH Q6H PRN PRN Reason: NAUSEA AND/OR VOMITING Oxycodone HCl (Roxicodone -) 5 mg PO Q6H PRN PRN Reason: PAIN Pantoprazole Sodium (Protonix -) 20 mg PO BID [facility] Last Admin: 07/11/17 21:19 Dose: 20 mg Promethazine HCl (Phenergan Injection -) 12.5 mg IVPUSH Q6H PRN PRN Reason: NAUSEA-FOR RESCUE AFTER 15 MIN Zolpidem Tartrate (Ambien -) 5 mg PO HS [facility] Last Admin: 07/11/17 21:19 Dose: 5 mg ASSESSMENT/PLAN: 57yo woman with PMH HIV (CD4 725, VL 180 on 07/04; on HAART), DM2, HTN, CAD (s/p cardiac stent 04/15), BL SFA stents (04/17, 05/18), who p/w BL LE pain, swelling and inability to ambulate for last two days and found to have b/l occlusions of LE in the setting of medication non-compliance (Plavix). #L limb ischemia c/b L compartment syndrome s/p LLE angiogram; SFA, popliteal, tibial angioplasty; SFA stent placement w/ TPA infusion -Vascular surgery by Dr. Guzmán. Patient back to OR for fasciotomy -Switch Heparin gtt --> Lovenox 80mg ID -Dialudid 1mg q4h PRN for pain #thrombocytopenia, -f/u HIT Ab to r/o HIT #BRENDAN, resolved -Avoid nephrotoxic agents -Continue IVF NS 75cc/hr #DM2 - A1C 13.3 on 07/04 - BGM & ISS q4h #HTN - hold home meds for now #HIV - CV4 809, VL 80 on 07/04; on HAART - C/W Tivicay and Descovy - f/u as outpt for further management w/ PCP #CAD (s/p cardiac stent) - c/w Plavix -Cardiology consulted (Dr. Fritz). Will discuss DAPT vs triple therapy #HLD - Triglycerides 1264, Cholesterol 278 on 07/04 -lipitor 10mg HS #PPX -DVT - lovenox -GI - c/w home ppi #FEN: NS 75cc/hr / repleted Phos and Mg / DM, Na controlled diet #DISPO: ICU management FULL code d/w Dr. Steph Murray MD PGY1 - Internal Medicine Visit type - Emergency Visit Emergency Visit: No - New Patient This patient is new to me today: No - Critical Care Critical Care patient: Yes Total Critical Care Time (in minutes): 45 Critical Care Statement: The care of this patient involved high complexity decision making to prevent further life threatening deterioration of the patient 's condition and/or to evaluate & treat vital organ system(s) failure or risk of failure.
[2017-07-11 07:27] LABS: ALBUMIN 2.4 g/dl (3.4-5.0); ANION GAP 9 (8-16); BLOOD UREA NITROGEN 9 mg/dL (7-18); CHLORIDE 103 mmol/L (98-107); CO2 25 mmol/L (21-32); GLUCOSE,RANDOM 185 mg/dL (74-106); MAGNESIUM 1.7 mg/dL (1.8-2.4); SODIUM 137 mmol/L (136-145)
[2017-07-11 07:52] LABS: ALK PHOS 123 U/L (45-117); BILIRUBIN,TOTAL 0.5 mg/dL (0.2-1.0); CREATININE 0.9 mg/dL (0.55-1.02); PHOSPHOROUS 2.1 mg/dL (2.5-4.9); SGOT/AST 339 U/L (15-37); SGPT/ALT 65 U/L (12-78); TOT PROT 5.9 g/dl (6.4-8.2)
[2017-07-11] MEDS: HEPARIN SOD,PORK IN 0.45% NACL 25,000 UNITS/500 ML INFUS.BAG IVPB SCH (07:55)
[2017-07-11] MEDS ORDERED: MAGNESIUM OXIDE 400 MG TABLET (FP) PO ONE (08:01)
[2017-07-11] MEDS ORDERED: HYDROmorphone HCL CARPU-JECT 1 MG/1 ML DISP.SYRIN IVPUSH PRN (08:21)
--- NOTE | 2017-07-11 08:29 | PN ---
Progress Note (short form) - Note Progress Note: S/P Left LE Angiogram with thrombolysis under MAC uneventful.P107,BP137/76 and Spo2 98% on O2 @L NC.Patient stable and has lot of pain so increased Dilaudid from 0.5mg to 1mg q4hr prn.No any anesthesia related problem.Patient DC from the anesthesia care.
--- NOTE | 2017-07-11 09:30 | PN ---
Progress Note (short form) - Note Progress Note: Vascular Surgery Pt seen and examined. Left calf swelling with sensory issues. Pt having trouble moving ankle. Will do fasciotomy to decompress left calf. Left is warm, with good dopplerable dp and pt pulses. Gabriel Guzmán DO Problem List - Problems (1) Ischemia of both lower extremities Code(s): I99.8 - OTHER DISORDER OF CIRCULATORY SYSTEM
[2017-07-11] MEDS: GABAPENTIN 300 MG CAPSULE (FP) PO SCH ×2 (09:48→21:18)
[2017-07-11] MEDS: PANTOPRAZOLE 20 MG TABLET (FP) PO SCH ×2 (09:48→21:19)
[2017-07-11] MEDS: CLOPIDOGREL BISULFATE 75 MG TABLET (FP) PO SCH (09:48)
[2017-07-11] MEDS: PATIENT'S OWN MEDICATION (NON-FORMULARY) (Dolutegravir Sodium 50 MG) PO SCH (09:49)
[2017-07-11] MEDS: MUPIROCIN 2% TOPICAL OINTMENT FOR DECOLONIZATION NS SCH ×2 (09:50→21:20)
[2017-07-11] MEDS ORDERED: HEPARIN SOD,PORK IN 0.45% NACL 25,000 UNITS/500 ML INFUS.BAG IVPB SCH (09:52)
[2017-07-11] MEDS ORDERED: NAPH,MB-DB/K PH,MBDB POWDER PACKET PO SCH ×2 (10:00→22:00)
[2017-07-11] MEDS ORDERED: ONDANSETRON 4 MG/2 ML VIAL IVPUSH PRN ×4 (10:50→13:39)
[2017-07-11] MEDS ORDERED: PROMETHAZINE HCL 25 MG/1 ML VIAL IVPUSH PRN ×4 (10:50→13:39)
[2017-07-11] MEDS ORDERED: LACTATED RINGERS SOLUTION 1,000 ML IV SCH ×3 (11:00→13:45)
[2017-07-11] MEDS ORDERED: ceFAZolin SODIUM 1 GM VIAL IVPB ONE (11:10)
--- NOTE | 2017-07-11 12:03 | OP ---
Operative Note - Note: Operative Date: 07/11/17 Pre-Operative Diagnosis: left calf compartment syndrome Operation: left calf fasciotomy Findings: medial and lateral compartments opened. Superficial and deep Post-Operative Diagnosis: Same as Pre-op Surgeon: Gabriel Guzmán Anesthesia: General Estimated Blood Loss (mls): 75 Operative Report Dictated: Yes
--- NOTE | 2017-07-11 12:07 | SURG ---
Surgery Artificial Flowers Starcher Note Artificial Flowers Starcher: Farheen Santana PA-C Date of Service: 07/11/17 Diagnosis: Left Calf compartment syndrome 2/2 reperfusion syndrome Procedure: left calf fasciotomy I was present for the entirety of the operative procedure. For further detail, please refer to operative report. Visit type - Case Type Case Type: ED Admission - Emergency Emergency Visit: Yes ED Registration Date: 07/09/17 Care time: The patient presented to the Emergency Department on the above date and was hospitalized for further evaluation of their emergent condition. - New patient This patient is new to me today: Yes Date on this admission: 07/11/17
[2017-07-11] MEDS ORDERED: LORATADINE 10 MG TABLET PO PRN (12:59)
[2017-07-11] MEDS ORDERED: SODIUM CHLORIDE 1,000 ML IV SCH (12:59)
[2017-07-11] MEDS ORDERED: oxyCODONE HCL 5 MG TABLET PO PRN (12:59)
[2017-07-11] MEDS ORDERED: ACETAMINOPHEN 325 MG TABLET (FP) PO PRN (12:59)
[2017-07-11] MEDS ORDERED: MAGNESIUM OXIDE 400 MG TABLET (FP) PO PRN (12:59)
--- NOTE | 2017-07-11 14:34 | PN ---
Progress Note, Physician History of Present Illness: patient seen and examined at bedside complains of extreme pain in the LLE - Current Medication List Current Medications: Active Medications Acetaminophen (Tylenol -) 325 mg PO Q6H PRN PRN Reason: PAIN Atorvastatin Calcium (Lipitor -) 10 mg PO HS [facility] Budesonide/Formoterol Fumarate (Symbicort 160/4.5mcg -) 1 puff IH BID [facility] Chlorhexidine Gluconate (Hibiclens For Decolonization -) 1 applic TP HS [facility] Chlorhexidine Gluconate (Hibiclens For Decolonization -) 1 applic TP HS [facility] Enoxaparin Sodium (Lovenox -) 80 mg SQ BID [facility] Escitalopram Oxalate (Lexapro -) 20 mg PO HS [facility] Fentanyl (Sublimaze Injection -) 50 mcg IVPUSH [id number] PRN PRN Reason: PAIN-PACU ORDER X 4 DOSES ONLY Fentanyl (Sublimaze Injection -) 50 mcg IVPUSH [id number] PRN PRN Reason: PAIN-PACU ORDER X 4 DOSES ONLY Gabapentin (Neurontin -) 600 mg PO BID [facility] Hydromorphone HCl (Dilaudid Injection -) 1 mg IVPUSH Q4H PRN PRN Reason: MODERATE PAIN Lactated Ringer's (Lactated Ringers Solution) 1,000 mls @ 125 mls/hr IV ASDIR [facility] Sodium Chloride (Normal Saline -) 1,000 mls @ 75 mls/hr IV ASDIR [facility] Lactated Ringer's (Lactated Ringers Solution) 1,000 mls @ 125 mls/hr IV ASDIR [facility] Insulin Aspart (Novolog Vial Sliding Scale -) 1 vial SQ Q4H [facility] PRN Reason: Protocol Loratadine (Claritin -) 10 mg PO DAILY PRN PRN Reason: allergies Magnesium Oxide (Mag-Ox -) 400 mg PO DAILY PRN PRN Reason: MODERATE PAIN Mirtazapine (Remeron -) 30 mg PO HS [facility] Montelukast Sodium (Singulair -) 10 mg PO HS [facility] Mupirocin (Bactroban Ointment (For Decolonization) -) 1 applic NS BID [facility] Stop: 07/15/17 09:59 Non-Formulary Medication (Dolutegravir Sodium) 50 mg PO DAILY [facility] Non-Formulary Medication (Emtricitabine/Tenofov Alafenam [Descovy 200-25 Mg Tablet (Nf)]) 1 each PO HS [facility] Ondansetron HCl (Zofran Injection) 4 mg IVPUSH Q6H PRN PRN Reason: NAUSEA AND/OR VOMITING Ondansetron HCl (Zofran Injection) 4 mg IVPUSH Q6H PRN PRN Reason: NAUSEA AND/OR VOMITING Oxycodone HCl (Roxicodone -) 5 mg PO Q6H PRN PRN Reason: PAIN Pantoprazole Sodium (Protonix -) 20 mg PO BID [facility] Potassium Phos/Sodium Phos (Phos-Nak Packet -) 2 packet PO BID [facility] Stop: 07/11/17 22:01 Promethazine HCl (Phenergan Injection -) 12.5 mg IVPUSH Q6H PRN PRN Reason: NAUSEA-FOR RESCUE AFTER 15 MIN Zolpidem Tartrate (Ambien -) 5 mg PO HS [facility] - Objective Vital Signs: Vital Signs Temperature 98 F 07/11/17 13:46 Pulse Rate 112 H 07/11/17 14:00 Respiratory Rate 18 07/11/17 14:00 Blood Pressure 113/70 07/11/17 14:00 O2 Sat by Pulse Oximetry (%) 120 H 07/11/17 13:46 Constitutional: Yes: Mild Distress HENT: Yes: Atraumatic Neck: Yes: Supple Cardiovascular: Yes: Regular Rate and Rhythm Respiratory: Yes: CTA Bilaterally Gastrointestinal: Yes: Soft Extremities: Yes: Other (LLE calf is slightly taut. patient has pain out of proportion to physiucal exam. Unable to wiggle toes or flex ankle. calf is tender to touch. DP pulses have a strong dopplerable signal bilaterally) Labs: CBC, BMP 07/11/17 06:25 07/11/17 06:25 INR, PTT INR 1.20 (0.82-1.09) H 07/10/17 05:55 Fibrinogen 342.0 mg/dL (238-498) D 07/11/17 10:15 Assessment/Plan 57 yo woman w/ pmh of HIV (CV4 809, VL 80 on 07/04; on ARVs), DM2, HTN, CAD (s/p cardiac stent 04/15), severe PAD s/p BL SFA stents (04/17, 05/18), initially presented w/ BL LE pain, swelling and claudication in the setting of Plavix/ ASA non-compliance due to prescription shortage. Compartment syndrome secondary to reperfusion syndrome concern for compartment syndrome this morning. Vascular surgery attending at bedside within minutes. patient to be taken to OR for fasciotomy Neuro: Pain Control: continue dilaudid and oxycodone #psych: - contiue lexapro - continue zolpidem CV: #CAD: PTCA on 04/15 - Continue on plavix when ok by vascular surgery to restart #HTN: resume home meds #HLD: - Can hold statin given possible rhabdo from reperfusion injury # Arterio-embolism: underwent angiogram with angioplasty/stent placement in right LE - On Heparin gtt. - S/P TPA infusion to LLE - Will hold off on RLE procedure to allow for possible resolution of clot burden and decrease acute anesthesia/ contrast burden - Neuro/pulse checks Q2H Renal: Rhabdomyolysis #BRENDAN, resolved, (1.3 on admission, now 0.9) -Avoid nephrotoxic agents -Continue IVF trend CPK Endo: #DM2 - A1C 13.3 on 07/04 - BGM & ISS ID: #HIV - CV4 809, VL 80 on 07/04; on HAART - C/W Tivicay and Descovy - f/u as outpt for further management w/ PCP FEN: #FEN: continue IVF for rhabdomyolysis replete magnesium and phosphorus - diabetic diet PPX: Stop heparin gtt ans start lovenox per primary team Hit Panel sent - ppi DISPO: - Needs ICU montioring - FULL code
--- NOTE | 2017-07-11 15:02 | PN ---
Teaching Attending Note Name of Resident: Dru Pollack ATTENDING PHYSICIAN STATEMENT I saw and evaluated the patient. I reviewed the resident's note and discussed the case with the resident. I agree with the resident's findings and plan as documented. SUBJECTIVE: Pt seen and examined in the ICU. Taken to OR for urgent left calf fasciotomy for suspected compartment syndrome. OBJECTIVE: Last Vital Signs Temp Pulse Resp BP Pulse Ox 98 F 112 H 18 113/70 120 H 07/11/17 13:46 07/11/17 14:00 07/11/17 14:00 07/11/17 14:00 07/11/17 13:46 Intake & Output 07/08/17 07/09/17 07/10/17 07/11/17 23:59 23:59 23:59 23:59 Intake Total 2592 2359 2580 Output Total 50 1600 675 Balance 4342 829 1905 Weight 70.307 kg 75.013 kg 76.702 kg Gen: pain with movement Heart: tachycardic, regular Lung: decreased breath sounds at the bases Abd: soft, nontender Ext: LLE edema, pain to palpation CBC, BMP 07/11/17 06:25 07/11/17 06:25 Active Medications Acetaminophen (Tylenol -) 325 mg PO Q6H PRN PRN Reason: PAIN Atorvastatin Calcium (Lipitor -) 10 mg PO HS [facility] Budesonide/Formoterol Fumarate (Symbicort 160/4.5mcg -) 1 puff IH BID [facility] Chlorhexidine Gluconate (Hibiclens For Decolonization -) 1 applic TP HS [facility] Chlorhexidine Gluconate (Hibiclens For Decolonization -) 1 applic TP HS [facility] Enoxaparin Sodium (Lovenox -) 80 mg SQ BID [facility] Escitalopram Oxalate (Lexapro -) 20 mg PO HS [facility] Fentanyl (Sublimaze Injection -) 50 mcg IVPUSH [id number] PRN PRN Reason: PAIN-PACU ORDER X 4 DOSES ONLY Fentanyl (Sublimaze Injection -) 50 mcg IVPUSH [id number] PRN PRN Reason: PAIN-PACU ORDER X 4 DOSES ONLY Gabapentin (Neurontin -) 600 mg PO BID [facility] Hydromorphone HCl (Dilaudid Injection -) 1 mg IVPUSH Q4H PRN PRN Reason: MODERATE PAIN Lactated Ringer's (Lactated Ringers Solution) 1,000 mls @ 125 mls/hr IV ASDIR [facility] Sodium Chloride (Normal Saline -) 1,000 mls @ 75 mls/hr IV ASDIR [facility] Lactated Ringer's (Lactated Ringers Solution) 1,000 mls @ 125 mls/hr IV ASDIR [facility] Insulin Aspart (Novolog Vial Sliding Scale -) 1 vial SQ Q4H [facility] PRN Reason: Protocol Loratadine (Claritin -) 10 mg PO DAILY PRN PRN Reason: allergies Magnesium Oxide (Mag-Ox -) 400 mg PO DAILY PRN PRN Reason: MODERATE PAIN Mirtazapine (Remeron -) 30 mg PO HS [facility] Montelukast Sodium (Singulair -) 10 mg PO HS [facility] Mupirocin (Bactroban Ointment (For Decolonization) -) 1 applic NS BID [facility] Stop: 07/15/17 09:59 Non-Formulary Medication (Dolutegravir Sodium) 50 mg PO DAILY [facility] Non-Formulary Medication (Emtricitabine/Tenofov Alafenam [Descovy 200-25 Mg Tablet (Nf)]) 1 each PO HS [facility] Ondansetron HCl (Zofran Injection) 4 mg IVPUSH Q6H PRN PRN Reason: NAUSEA AND/OR VOMITING Ondansetron HCl (Zofran Injection) 4 mg IVPUSH Q6H PRN PRN Reason: NAUSEA AND/OR VOMITING Oxycodone HCl (Roxicodone -) 5 mg PO Q6H PRN PRN Reason: PAIN Pantoprazole Sodium (Protonix -) 20 mg PO BID [facility] Potassium Phos/Sodium Phos (Phos-Nak Packet -) 2 packet PO BID [facility] Stop: 07/11/17 22:01 Promethazine HCl (Phenergan Injection -) 12.5 mg IVPUSH Q6H PRN PRN Reason: NAUSEA-FOR RESCUE AFTER 15 MIN Zolpidem Tartrate (Ambien -) 5 mg PO [facility] ASSESSMENT AND PLAN: LLE Thrombi/Limb Ischemia s/p Aortgram/LLE angiogram/SFA, popliteal artery, tibial artery angioplasty/SFA stent placement/iinfusion of TPA LLE Compartment Syndrome Rhabdomyolysis s/p Urgent Fasciotomy CAD HTN DM HIV - continue anticoagulation - doppler checks - plavix - pain control - check CPK - IVF - monitor urine output, creatinine - trend CPK - surgery f/u - continue ICU monitoring critical care time spent in reviewing chart, evaluating patient and formulating plan 35min
--- NOTE | 2017-07-11 15:04 | OP ---
DATE OF OPERATION: 07/10/2017 PREOPERATIVE DIAGNOSIS: Left lower extremity ischemia. POSTOPERATIVE DIAGNOSIS: Left lower extremity ischemia. PROCEDURE: Left lower extremity angiogram. SURGEON: Gabriel Wilder MD ANESTHESIA: Fractional. BLOOD LOSS: 10 mL. INDICATIONS: The patient is a 53-year-old female with left lower extremity ischemia. She was placed on thrombolysis. She is now coming back for thrombolysis check. Patient was consented for the procedure understanding all risks, benefits, and alternatives and was then taken to the operating room. PROCEDURE IN DETAIL: Once in the operating suite, she was placed on the operating table in the supine manner, and the area of the right and left groin were prepped and draped in the sterile surgical manner. We already had a 6 x 45 sheath in and we already had our EKOS catheter in. So, we went ahead and prepped and draped the EKOS catheter, and we then went ahead and placed a 0.035 stiff guidewire into the EKOS catheter, and the EKOS catheter was removed. We then shot an angiogram of the left lower extremity of the left lower extremity showing that the left lower extremity, the common femoral artery, the profunda, the SFA, the popliteal artery was patent, and patient had 2-vessel runoff into the foot. At this point, we decided that there was no more intervention needed. The thrombolysis worked. We brought our sheath up and over, and [employer] device was successfully deployed in the right common femoral artery. Pressure was held for 5 minutes. After that, there was no bleeding. The area was wet and dried, and Dermabond was placed. The patient tolerated the procedure with no complications. Patient transferred to PACU in stable condition where patient had strong Dopplerable DP and PT pulse. GABRIEL WILDER DO NP/[id number]
--- NOTE | 2017-07-11 16:25 | PN ---
Teaching Attending Note Name of Resident: Catalina Murray ATTENDING PHYSICIAN STATEMENT I saw and evaluated the patient. I reviewed the resident's note and discussed the case with the resident. I agree with the resident's findings and plan as documented. SUBJECTIVE:seen at 10 am No fever or chills, L calf pain , decreased sensation and mobility of L ankle OBJECTIVE: NAD Lungs : CTAB Abd: soft, NT, ND , NL BS CV: RRR, no MRG Ext: L calf is tense and tender, absent sensation to light touch on L calf and foot. DP and PT pulses are doplerable but not palpable . L ankle dorsiflexion and plantar flexion 0 /5 . Nl motor function on R ankle warm feet ASSESSMENT AND PLAN: 57 y/o lady with h/o CAD, s/p stenting in 2014, HLP, HTN, and other medical problems who presented with b/l LE pain , and was found ot have acute ischemia of LE 1- Acute ischemia of LEs , with compartment syndrome of L leg. - s/p angio and SFA stenting on 07/09 - s/p faciotomy today - PTT is not therapeutic - change heparin to lovenox 80 mg BID - pain control - serial exams 2- Thrombocytopenia : need to r/o HIT due to risk of arterial and venous VTEs , although the rapid decline indicates a consumptive etiology. - check HIT Abs. - lovenox for now . - Heme notified . No need for Dabigatran now untill HIT is confirmed as HIT is a low suspicion - repeated fibrinogen , NL now . 3- BRENDAN : resolved 4- h/o CAD , s/p stneting : - currently on plavix, which she does not need from vascular stand point ,But she has a stent. - will d/w card the need for Antiplatelts , ASA vs ASa+ plavix , VS only AC . 5- DM : SSI for now , as she might need further interventions 6- replete electrolytes Critical Care Total Critical Care Time (in minutes): 45 Critical Care Statement: The care of this patient involved high complexity decision making to prevent further life threatening deterioration of the patient 's condition and/or to evaluate & treat vital organ system(s) failure or risk of failure.
--- NOTE | 2017-07-11 16:31 | PN ---
Progress Note (short form) - Note Progress Note: seen and examined. events noted. s/p fasciotomy LLE. Constitutional: Yes:NAD Eyes: Yes: Conjunctiva Clear HENT: Yes: Atraumatic, Normocephalic Neck: Yes: Supple Cardiovascular: Yes: Regular Rate and Rhythm, Tachycardic Respiratory: Yes: Regular, CTA Bilaterally Gastrointestinal: Yes: Normal Bowel Sounds, Soft, Abdomen, Obese Musculoskeletal: Yes: WNL Edema: Yes Edema: LLE: in dressing Last Vital Signs Temp Pulse Resp BP Pulse Ox 98 F 112 H 18 113/70 120 H 07/11/17 13:46 07/11/17 14:00 07/11/17 14:00 07/11/17 14:00 07/11/17 13:46 CBC, BMP 07/11/17 06:25 07/11/17 06:25 Current Medications Generic Name Dose Route Start Last Admin Trade Name Freq PRN Reason Stop Dose Admin Acetaminophen 325 mg 07/11/17 12:59 Tylenol - PO Q6H PRN PAIN Atorvastatin Calcium 10 mg 07/11/17 22:00 Lipitor - PO HS [facility] Budesonide/Formoterol Fumarate 1 puff 07/11/17 22:00 Symbicort 160/4.5mcg - IH BID [facility] Chlorhexidine Gluconate 1 applic 07/11/17 22:00 Hibiclens For Decolonization - TP HS [facility] Chlorhexidine Gluconate 1 applic 07/11/17 22:00 Hibiclens For Decolonization - TP HS [facility] Enoxaparin Sodium 80 mg 07/11/17 16:15 Lovenox - SQ BID [facility] Escitalopram Oxalate 20 mg 07/11/17 22:00 Lexapro - PO HS [facility] Fentanyl 50 mcg 07/11/17 12:59 Sublimaze Injection - IVPUSH [id number] PRN PAIN-PACU ORDER X 4 DOSES ONLY Fentanyl 50 mcg 07/11/17 13:39 Sublimaze Injection - IVPUSH [id number] PRN PAIN-PACU ORDER X 4 DOSES ONLY Gabapentin 600 mg 07/11/17 22:00 Neurontin - PO BID [facility] Hydromorphone HCl 1 mg 07/11/17 12:59 Dilaudid Injection - IVPUSH Q4H PRN MODERATE PAIN Lactated Ringer's 1,000 mls @ 125 mls/hr 07/11/17 12:59 Lactated Ringers Solution IV ASDIR [facility] Sodium Chloride 1,000 mls @ 75 mls/hr 07/11/17 12:59 Normal Saline - IV ASDIR [facility] Lactated Ringer's 1,000 mls @ 125 mls/hr 07/11/17 13:45 Lactated Ringers Solution IV ASDIR [facility] Insulin Aspart 1 vial 07/11/17 14:30 Novolog Vial Sliding Scale - SQ Q4H [facility] Protocol Loratadine 10 mg 07/11/17 12:59 Claritin - PO DAILY PRN allergies Magnesium Oxide 400 mg 07/11/17 12:59 Mag-Ox - PO DAILY PRN MODERATE PAIN Mirtazapine 30 mg 07/11/17 22:00 Remeron - PO HS [facility] Montelukast Sodium 10 mg 07/11/17 22:00 Singulair - PO HS [facility] Mupirocin 1 applic 07/11/17 22:00 Bactroban Ointment (For Decolonization) - NS 07/15/17 09:59 BID [facility] Non-Formulary Medication 50 mg 07/12/17 10:00 Dolutegravir Sodium PO DAILY [facility] Non-Formulary Medication 1 each 07/11/17 22:00 Emtricitabine/Tenofov Alafenam [Descovy 200-25 Mg Tablet (Nf)] PO HS [facility] Ondansetron HCl 4 mg 07/11/17 12:59 Zofran Injection IVPUSH Q6H PRN NAUSEA AND/OR VOMITING Ondansetron HCl 4 mg 07/11/17 13:39 Zofran Injection IVPUSH Q6H PRN NAUSEA AND/OR VOMITING Oxycodone HCl 5 mg 07/11/17 12:59 Roxicodone - PO Q6H PRN PAIN Pantoprazole Sodium 20 mg 07/11/17 22:00 Protonix - PO BID [facility] Potassium Phos/Sodium Phos 2 packet 07/11/17 22:00 Phos-Nak Packet - PO 07/11/17 22:01 BID [facility] Promethazine HCl 12.5 mg 07/11/17 13:39 Phenergan Injection - IVPUSH Q6H PRN NAUSEA-FOR RESCUE AFTER 15 MIN Zolpidem Tartrate 5 mg 07/11/17 22:00 Ambien - PO HS [facility] on LMWH less likely JEFFERY, but will f/u on HIT ab closely monitor platelet count
[2017-07-11] MEDS: ENOXAPARIN NA (PORCINE) 80 MG/0.8 ML DISP.SYRIN SQ SCH ×2 (16:43→21:18)
--- NOTE | 2017-07-11 20:47 | PN ---
Physical Exam: SUBJECTIVE: Patient seen and examined OBJECTIVE: Vital Signs Period Temp Pulse Resp BP Sys/Cota Pulse Ox Last 24 Hr 97.8 F-99.8 F 88-128 18-24 96-150/50-90 97-120 GENERAL: The patient is awake, alert, and fully oriented, in no acute distress. HEAD: Normal with no signs of trauma. EYES: PERRL, extraocular movements intact, sclera anicteric, conjunctiva clear. No ptosis. ENT: Ears normal, nares patent, oropharynx clear without exudates, moist mucous membranes. NECK: Trachea midline, full range of motion, supple. LUNGS: Breath sounds equal, clear to auscultation bilaterally, no wheezes, no crackles, no accessory muscle use. HEART: Regular rate and rhythm, S1, S2 without murmur, rub or gallop. ABDOMEN: Soft, nontender, nondistended, normoactive bowel sounds, no guarding, no rebound, no hepatosplenomegaly, no masses. EXTREMITIES: 2+ pulses, warm, well-perfused, no edema. NEUROLOGICAL: Cranial nerves II through XII grossly intact. Normal speech, gait not observed. PSYCH: Normal mood, normal affect. SKIN: Warm, dry, normal turgor, no rashes or lesions noted Laboratory Results - last 24 hr 07/11/17 07/11/17 07/11/17 06:25 06:25 06:25 WBC 7.6 RBC 3.56 L Hgb 9.6 L D Hct 29.8 L MCV 83.7 MCH 27.0 MCHC 32.2 RDW 15.1 Plt Count 72 L MPV 10.9 D PTT (Actin FS) 39.4 H Fibrinogen Sodium 137 Potassium 4.0 Chloride 103 Carbon Dioxide 25 Anion Gap 9 BUN 9 Creatinine 0.9 Creat Clearance w eGFR > 60 Random Glucose 185 H D Calcium 8.0 L Phosphorus 2.1 L D Magnesium 1.7 L Total Bilirubin 0.5 D AST 339 H D ALT 65 D Alkaline Phosphatase 123 H Creatine Kinase Creatine Kinase Index CK-MB (CK-2) Troponin I Total Protein 5.9 L Albumin 2.4 L Vitamin B12 549 Serum Folate 7 D 07/11/17 07/11/17 06:25 10:15 WBC RBC Hgb Hct MCV MCH MCHC RDW Plt Count MPV PTT (Actin FS) Fibrinogen 342.0 D Sodium Potassium Chloride Carbon Dioxide Anion Gap BUN Creatinine Creat Clearance w eGFR Random Glucose Calcium Phosphorus Magnesium Total Bilirubin AST ALT Alkaline Phosphatase Creatine Kinase 90253 H Creatine Kinase Index 0.5 CK-MB (CK-2) 64.532 H Troponin I < 0.02 Total Protein Albumin Vitamin B12 Serum Folate Active Medications Generic Name Dose Route Start Last Admin Trade Name Freq PRN Reason Stop Dose Admin Acetaminophen 325 mg 07/11/17 12:59 Tylenol - PO Q6H PRN PAIN Atorvastatin Calcium 10 mg 07/11/17 22:00 Lipitor - PO HS [facility] Budesonide/Formoterol Fumarate 1 puff 07/11/17 22:00 Symbicort 160/4.5mcg - IH BID [facility] Chlorhexidine Gluconate 1 applic 07/11/17 22:00 Hibiclens For Decolonization - TP HS [facility] Chlorhexidine Gluconate 1 applic 07/11/17 22:00 Hibiclens For Decolonization - TP [facility] Enoxaparin Sodium 80 mg 07/11/17 16:15 07/11/17 16:43 Lovenox - SQ 80 mg BID [facility] Administration Escitalopram Oxalate 20 mg 07/11/17 22:00 Lexapro - PO HS [facility] Fentanyl 50 mcg 07/11/17 12:59 Sublimaze Injection - IVPUSH [id number] PRN PAIN-PACU ORDER X 4 DOSES ONLY Fentanyl 50 mcg 07/11/17 13:39 Sublimaze Injection - IVPUSH [id number] PRN PAIN-PACU ORDER X 4 DOSES ONLY Gabapentin 600 mg 07/11/17 22:00 Neurontin - PO BID [facility] Hydromorphone HCl 1 mg 07/11/17 12:59 Dilaudid Injection - IVPUSH Q4H PRN MODERATE PAIN Sodium Chloride 1,000 mls @ 75 mls/hr 07/11/17 12:59 Normal Saline - IV ASDIR [facility] Insulin Aspart 1 vial 07/11/17 14:30 07/11/17 18:58 Novolog Vial Sliding Scale - SQ 10 units Q4H [facility] Administration Protocol Loratadine 10 mg 07/11/17 12:59 Claritin - PO DAILY PRN allergies Magnesium Oxide 400 mg 07/11/17 12:59 Mag-Ox - PO DAILY PRN MODERATE PAIN Mirtazapine 30 mg 07/11/17 22:00 Remeron - PO HS [facility] Montelukast Sodium 10 mg 07/11/17 22:00 Singulair - PO HS [facility] Mupirocin 1 applic 07/11/17 22:00 Bactroban Ointment (For Decolonization) - NS 07/15/17 09:59 BID [facility] Non-Formulary Medication 50 mg 07/12/17 10:00 Dolutegravir Sodium PO DAILY [facility] Non-Formulary Medication 1 each 07/11/17 22:00 Emtricitabine/Tenofov Alafenam [Descovy 200-25 Mg Tablet (Nf)] PO [facility] Ondansetron HCl 4 mg 07/11/17 12:59 Zofran Injection IVPUSH Q6H PRN NAUSEA AND/OR VOMITING Ondansetron HCl 4 mg 07/11/17 13:39 Zofran Injection IVPUSH Q6H PRN NAUSEA AND/OR VOMITING Oxycodone HCl 5 mg 07/11/17 12:59 Roxicodone - PO Q6H PRN PAIN Pantoprazole Sodium 20 mg 07/11/17 22:00 Protonix - PO BID [facility] Potassium Phos/Sodium Phos 2 packet 07/11/17 22:00 Phos-Nak Packet - PO 07/11/17 22:01 BID [facility] Promethazine HCl 12.5 mg 07/11/17 13:39 Phenergan Injection - IVPUSH Q6H PRN NAUSEA-FOR RESCUE AFTER 15 MIN Zolpidem Tartrate 5 mg 07/11/17 22:00 Ambien - PO [facility] ASSESSMENT/PLAN:
[2017-07-11] MEDS: HYDROmorphone HCL CARPU-JECT 2 MG/1 ML DISP.SYRIN IVPUSH PRN (20:55)
[2017-07-11] MEDS ORDERED: PT OWN MED DRAWER 7, Y5N ONE ×2 (21:03→21:47)
[2017-07-11] MEDS ORDERED: MIRTAZAPINE 15 MG TABLET (FP) ONE (21:03)
[2017-07-11] MEDS: BUDESONIDE/FORMETEROL FUMARATE 160/4.5 mcg INHALER IH SCH (21:21)
--- NOTE | 2017-07-11 21:49 | OP ---
DATE OF OPERATION: 07/11/2017 PREOPERATIVE DIAGNOSIS: Left calf compartment syndrome. POSTOPERATIVE DIAGNOSIS: Left calf compartment syndrome. PROCEDURE: Left calf fasciotomy. SURGEON: Gabriel Wilder DO ANESTHESIA: General. BLOOD LOSS: 75 mL. The patient is a 57-year-old female who recently had thrombolysis for left lower extremity critical limb ischemia. She came off the thrombolysis yesterday and was doing well. Overnight she developed some swelling in her left calf that was causing some motor and sensory deficits and it was decided that we would need to decompress the left calf. The patient was consented for the procedure, understanding all risks, benefits, and alternatives, and was then taken to the operating room. Once in the operating room, she was placed on operating table in supine manner. General anesthesia was administered to the patient. We then went ahead and took a skin marker and judah an incision on the medial and lateral compartment of the left calf. We then went ahead and used a number 15 blade and made about a 10-cm incision along the medial calf, Bovie electrocautery used to control hemostasis, and we were able to get down through all the subcutaneous tissue and get down to the fascia. Using Metzenbaum scissors, the fascia was opened and unzipped proximally and distally on the left calf. As soon as we did that, the muscle was swollen and it popped out. Bovie electrocautery used to control hemostasis and the medial compartment was decompressed. We then went ahead and went to the lateral compartment and made a 10 cm incision using a number 15 blade. Bovie electrocautery used to control hemostasis. We got down through all the subcutaneous tissue and got down to the fascia. The fascia was then unzipped proximally and distally and the muscle popped there as well. As soon as we decompressed the superficial compartment, we went deeper and we got to the deep compartment and the fascia was unzipped there using a Metzenbaum scissors going proximally and distally. The calf was now nice and soft. The wound was well irrigated. Xeroform wet-to-dry dressing was placed, 4 x 4's were placed, Kerlix and Elliott bandage was placed. Patient tolerated the procedure with no complications. Patient transferred to PACU in stable condition and then to the ICU. Total blood loss 75 mL. GABRIEL WILDER DO SALESPERSON DRIVER/[id number]
[2017-07-11] MEDS ORDERED: PATIENT'S OWN MEDICATION (NON-FORMULARY) (Emtricitabine/Tenofov Alafenam [Descovy 200-25 M PO SCH (22:00)
[2017-07-11] MEDS ORDERED: MIRTAZAPINE 30 MG TABLET (FP) PO SCH (22:00)
[2017-07-11] MEDS ORDERED: MUPIROCIN 2% TOPICAL OINTMENT FOR DECOLONIZATION NS SCH (22:00)
[2017-07-11] MEDS ORDERED: CHLORHEXIDINE GLUCONATE 4% CLEANSER FOR DECOLONIZATION TP SCH ×2 (22:00)
[2017-07-11] MEDS ORDERED: ZOLPIDEM TARTRATE 5 MG TABLET PO SCH (22:00)
[2017-07-11] MEDS ORDERED: MONTELUKAST NA 10 MG TABLET PO SCH (22:00)
[2017-07-11] MEDS ORDERED: ESCITALOPRAM OXALATE 20 MG TABLET (FP) PO SCH (22:00)
[2017-07-11] MEDS ORDERED: ATORVASTATIN CA 10 MG TABLET (FP) PO SCH (22:00)
[2017-07-12] MEDS: INSULIN SLIDING SCALE (NOVOLOG) 1 VIAL SQ SCH ×5 (02:14→21:58)
[2017-07-12] MEDS: HYDROmorphone HCL CARPU-JECT 2 MG/1 ML DISP.SYRIN IVPUSH PRN (05:28)
[2017-07-12 06:20] LABS: HEMATOCRIT 27.5 % (32.4-45.2); HEMOGLOBIN 8.7 GM/dL (10.7-15.3); MCH 26.6 pg (25.7-33.7); MCHC 31.7 g/dl (32.0-36.0); MEAN CELL VOLUME 83.7 fl (80-96); MEAN PLT VOLUME 10.3 fl (7.5-11.1); PLATELET COUNT 98 K/MM3 (134-434); RBC 3.29 M/mm3 (3.60-5.2); WHITE BLOOD COUNT 11.2 K/mm3 (4.0-10.0)
[2017-07-12 06:35] LABS: INR 1.12 (0.82-1.09); PROTHROMBIN TIME (PATIENT) 12.6 SEC (9.98-11.88)
[2017-07-12 06:46] LABS: ALBUMIN 2.2 g/dl (3.4-5.0); ANION GAP 8 (8-16); BLOOD UREA NITROGEN 12 mg/dL (7-18); CALCIUM 7.6 mg/dL (8.5-10.1); CHLORIDE 106 mmol/L (98-107); CO2 25 mmol/L (21-32); CREATININE 0.9 mg/dL (0.55-1.02); GLUCOSE,RANDOM 219 mg/dL (74-106); SGOT/AST 241 U/L (15-37); SGPT/ALT 68 U/L (12-78); SODIUM 139 mmol/L (136-145)
[2017-07-12 07:13] LABS: ALK PHOS 112 U/L (45-117); BILIRUBIN,TOTAL 0.5 mg/dL (0.2-1.0); TOT PROT 5.6 g/dl (6.4-8.2)
--- NOTE | 2017-07-12 07:25 | PN ---
Physical Exam: SUBJECTIVE: Patient seen and examined. No fever or chills. Pain improved and well controlled. OBJECTIVE: Vital Signs Period Temp Pulse Resp BP Sys/Cota Pulse Ox Last 24 Hr 97.8 F-99.5 F 88-128 15-24 96-140/60-90 98-120 GENERAL: nad, aaox3 EYES: sclera anicteric, conjunctiva clear ENT: oropharynx clear without exudates, MMM LUNGS: CTAB HEART: rrr, normal s1/s2, no m/r/g ABDOMEN: Soft, ntnd LOWER EXTREMITIES: L DP/PT +dopplers, L calf s/p fasciotomy with pink tissue, no purulent drainage, sensation returned to dorsal and plantar aspects, can move L toes today Laboratory Results - last 24 hr 07/11/17 07/11/17 07/11/17 06:25 06:25 06:25 WBC RBC Hgb Hct MCV MCH MCHC RDW Plt Count MPV PT with INR INR PTT (Actin FS) 39.4 H Fibrinogen Sodium 137 Potassium 4.0 Chloride 103 Carbon Dioxide 25 Anion Gap 9 BUN 9 Creatinine 0.9 Creat Clearance w eGFR > 60 POC Glucometer Random Glucose 185 H D Calcium 8.0 L Phosphorus 2.1 L D Magnesium 1.7 L Total Bilirubin 0.5 D AST 339 H D ALT 65 D Alkaline Phosphatase 123 H Creatine Kinase 48258 H Creatine Kinase Index 0.5 CK-MB (CK-2) 64.532 H Troponin I < 0.02 Total Protein 5.9 L Albumin 2.4 L Vitamin B12 549 Serum Folate 7 D 07/11/17 07/11/17 07/11/17 10:15 18:44 21:39 WBC RBC Hgb Hct MCV MCH MCHC RDW Plt Count MPV PT with INR INR PTT (Actin FS) Fibrinogen 342.0 D Sodium Potassium Chloride Carbon Dioxide Anion Gap BUN Creatinine Creat Clearance w eGFR POC Glucometer > [phone] Random Glucose Calcium Phosphorus Magnesium Total Bilirubin AST ALT Alkaline Phosphatase Creatine Kinase Creatine Kinase Index CK-MB (CK-2) Troponin I Total Protein Albumin Vitamin B12 Serum Folate 07/12/17 07/12/17 07/12/17 02:11 05:15 05:15 WBC 11.2 H D RBC 3.29 L Hgb 8.7 L Hct 27.5 L MCV 83.7 MCH 26.6 MCHC 31.7 L RDW 15.0 Plt Count 98 L D MPV 10.3 PT with INR 12.60 H INR 1.12 PTT (Actin FS) Fibrinogen Sodium Potassium Chloride Carbon Dioxide Anion Gap BUN Creatinine Creat Clearance w eGFR POC Glucometer [phone] Random Glucose Calcium Phosphorus Magnesium Total Bilirubin AST ALT Alkaline Phosphatase Creatine Kinase Creatine Kinase Index CK-MB (CK-2) Troponin I Total Protein Albumin Vitamin B12 Serum Folate Active Medications Generic Name Dose Route Start Last Admin Trade Name Freq PRN Reason Stop Dose Admin Acetaminophen 325 mg 07/11/17 12:59 Tylenol - PO Q6H PRN PAIN Atorvastatin Calcium 10 mg 07/11/17 22:00 07/11/17 21:19 Lipitor - PO 10 mg HS [facility] Administration Budesonide/Formoterol Fumarate 1 puff 07/11/17 22:00 07/11/17 21:21 Symbicort 160/4.5mcg - IH 1 puff BID [facility] Administration Chlorhexidine Gluconate 1 applic 07/11/17 22:00 07/11/17 21:19 Hibiclens For Decolonization - TP 1 applic HS [facility] Administration Enoxaparin Sodium 80 mg 07/11/17 16:15 07/11/17 21:18 Lovenox - SQ 80 mg BID [facility] Administration Escitalopram Oxalate 20 mg 07/11/17 22:00 07/11/17 21:18 Lexapro - PO 20 mg HS [facility] Administration Fentanyl 50 mcg 07/11/17 12:59 Sublimaze Injection - IVPUSH [id number] PRN PAIN-PACU ORDER X 4 DOSES ONLY Fentanyl 50 mcg 07/11/17 13:39 Sublimaze Injection - IVPUSH [id number] PRN PAIN-PACU ORDER X 4 DOSES ONLY Gabapentin 600 mg 07/11/17 22:00 07/11/17 21:18 Neurontin - PO 600 mg BID [facility] Administration Hydromorphone HCl 1 mg 07/11/17 12:59 07/12/17 05:28 Dilaudid Injection - IVPUSH 1 mg Q4H PRN Administration MODERATE PAIN Sodium Chloride 1,000 mls @ 75 mls/hr 07/11/17 12:59 07/11/17 19:00 Normal Saline - IV 75 mls/hr ASDIR [facility] Administration Insulin Aspart 1 vial 07/11/17 14:30 07/12/17 06:18 Novolog Vial Sliding Scale - SQ 4 units Q4H [facility] Administration Protocol Loratadine 10 mg 07/11/17 12:59 Claritin - PO DAILY PRN allergies Magnesium Oxide 400 mg 07/11/17 12:59 Mag-Ox - PO DAILY PRN MODERATE PAIN Mirtazapine 30 mg 07/11/17 22:00 07/11/17 21:18 Remeron - PO 30 mg HS [facility] Administration Montelukast Sodium 10 mg 07/11/17 22:00 07/11/17 21:19 Singulair - PO 10 mg HS [facility] Administration Mupirocin 1 applic 07/11/17 22:00 07/11/17 21:20 Bactroban Ointment (For Decolonization) - NS 07/15/17 09:59 1 applic BID [facility] Administration Non-Formulary Medication 50 mg 07/12/17 10:00 Dolutegravir Sodium PO DAILY [facility] Non-Formulary Medication 1 each 07/11/17 22:00 07/11/17 21:35 Emtricitabine/Tenofov Alafenam [Descovy 200-25 Mg Tablet (Nf)] PO 1 each HS [facility] Administration Ondansetron HCl 4 mg 07/11/17 12:59 Zofran Injection IVPUSH Q6H PRN NAUSEA AND/OR VOMITING Ondansetron HCl 4 mg 07/11/17 13:39 Zofran Injection IVPUSH Q6H PRN NAUSEA AND/OR VOMITING Oxycodone HCl 5 mg 07/11/17 12:59 Roxicodone - PO Q6H PRN PAIN Pantoprazole Sodium 20 mg 07/11/17 22:00 07/11/17 21:19 Protonix - PO 20 mg BID [facility] Administration Promethazine HCl 12.5 mg 07/11/17 13:39 Phenergan Injection - IVPUSH Q6H PRN NAUSEA-FOR RESCUE AFTER 15 MIN Zolpidem Tartrate 5 mg 07/11/17 22:00 07/11/17 21:19 Ambien - PO 5 mg HS [facility] Administration ASSESSMENT/PLAN: 57yo woman with PMH HIV (CD4 725, VL 180 on 07/04; on HAART), DM2, HTN, CAD (s/p cardiac stent 04/15), BL SFA stents (04/17, 11/17), who p/w BL LE pain, swelling and inability to ambulate for last two days and found to have b/l occlusions of LE in the setting of medication non-compliance (Plavix). #L limb ischemia, POD1 s/p fasciotomy for compartment syndrome s/p LLE angiogram; SFA, popliteal, tibial angioplasty; SFA stent placement w/ TPA infusion -Vascular surgery by Dr. Guzmán. -c/w Lovenox 80mg BID -Dialudid 1mg q4h PRN for pain -pulse checks q4h #thrombocytopenia, improved today -f/u HIT Ab to r/o HIT #BRENDAN, resolved -Avoid nephrotoxic agents -Continue IVF NS 75cc/hr #DM2 - A1C 13.3 on 07/04 - BGM & ISS q4h #HTN - hold home meds for now #HIV - CV4 809, VL 80 on 07/04; on HAART - C/W Tivicay and Descovy - f/u as outpt for further management w/ PCP #CAD (s/p cardiac stent) - c/w Plavix -Cardiology consulted (Dr. Fritz). Will discuss single vs DAPT vs triple therapy #HLD - Triglycerides 1264, Cholesterol 278 on 07/04 -lipitor 10mg HS #PPX -DVT - lovenox -GI - c/w home ppi #FEN: NS 75cc/hr / lytes wnl / DM, Na controlled diet #DISPO: will transfer to floors FULL code d/w Dr. Steph Murray MD PGY1 - Internal Medicine Visit type - Emergency Visit Emergency Visit: No - New Patient This patient is new to me today: No - Critical Care Critical Care patient: Yes Total Critical Care Time (in minutes): 35 Critical Care Statement: The care of this patient involved high complexity decision making to prevent further life threatening deterioration of the patient 's condition and/or to evaluate & treat vital organ system(s) failure or risk of failure.
--- NOTE | 2017-07-12 07:31 | PN ---
Progress Note (short form) - Note Progress Note: POD #1 Alert. Resting in position of comfort. States she feels much better today s/p yesterdays procedure. Still c/o of numbness and but sensation has greatly improved. Unable to move toes unchanged. No more leg/foot pain. Last Vital Signs Temp Pulse Resp BP Pulse Ox 98.9 F 106 H 15 104/82 98 07/12/17 06:00 07/12/17 06:00 07/12/17 06:00 07/12/17 06:00 07/11/17 22:08 CBC 07/12/17 05:15 Gen: nad LLE: Medial and lateral incisions open. Muscle is pink/viable. Tissue is considerably softer compared to yesterdays exam. Palpable DP. Foot warm Problem List - Problems (1) Compartment syndrome of left lower extremity Assessment/Plan: POD #1 s/p LLE fasciotomy Dressing changed on rounds with xeroform, 4x4, kerlix, anna light compression OOB to chair --> keep foot elevate with pillow under heel Cont medical management Plan for delayed wound closure once soft tissue swelling resolves Downgrade to floor Surgery to cont following Code(s): T79.A22A - TRAUMATIC COMPARTMENT SYNDROME OF LEFT LOWER EXTREMITY, INIT
--- NOTE | 2017-07-12 08:45 | PN ---
Physical Exam: SUBJECTIVE: Pain uch better s/p fasciotomy yesterday OBJECTIVE: Vital Signs Period Temp Pulse Resp BP Sys/Cota Pulse Ox Last 24 Hr 97.8 F-99.5 F 88-128 15-24 96-135/60-90 98-120 GENERAL: The patient is awake, alert, and fully oriented, in no significant acute distress. HEAD: Normal with no signs of trauma. EYES: PERRL, extraocular movements intact, sclera anicteric, conjunctiva clear. No ptosis. ENT: Ears normal, nares patent, oropharynx clear without exudates, moist mucous membranes. NECK: Trachea midline, full range of motion, supple. LUNGS: Breath sounds equal, clear to auscultation bilaterally, no wheezes, no crackles, no accessory muscle use. HEART: Regular rate and rhythm, S1, S2 without murmur, rub or gallop. ABDOMEN: Soft, nontender, nondistended, normoactive bowel sounds, no guarding, no rebound, no hepatosplenomegaly, no masses. EXTREMITIES: 2+ bl radial pulses but only dopplarable DPs bilaterally, warm, well-perfused, calf swelling bilaterally, left > right but left calf much better post fasciotomy and demonstrating slight motor function improvement with minimal toe movement. NEUROLOGICAL: motor function acutely worsened yesterday in lle with slow recovery in left after fasciotomy. Intact sensation to deep touch and pain, warm and not discolored PSYCH: Normal mood, normal affect. SKIN: Warm, dry, normal turgor, no rashes or lesions noted Laboratory Results - last 24 hr 07/11/17 07/11/17 07/11/17 06:25 10:15 18:44 WBC RBC Hgb Hct MCV MCH MCHC RDW Plt Count MPV PT with INR INR PTT (Actin FS) Fibrinogen 342.0 D Sodium Potassium Chloride Carbon Dioxide Anion Gap BUN Creatinine Creat Clearance w eGFR POC Glucometer > 400 Random Glucose Calcium Phosphorus Magnesium Total Bilirubin AST ALT Alkaline Phosphatase Creatine Kinase Creatine Kinase Index 0.5 CK-MB (CK-2) 64.532 H Total Protein Albumin 07/11/17 07/12/17 07/12/17 21:39 02:11 05:10 WBC RBC Hgb Hct MCV MCH MCHC RDW Plt Count MPV PT with INR INR PTT (Actin FS) 29.2 Fibrinogen Sodium Potassium Chloride Carbon Dioxide Anion Gap BUN Creatinine Creat Clearance w eGFR POC Glucometer [phone] Random Glucose Calcium Phosphorus Magnesium Total Bilirubin AST ALT Alkaline Phosphatase Creatine Kinase Creatine Kinase Index CK-MB (CK-2) Total Protein Albumin 07/12/17 07/12/17 07/12/17 05:15 05:15 05:15 WBC 11.2 H D RBC 3.29 L Hgb 8.7 L Hct 27.5 L MCV 83.7 MCH 26.6 MCHC 31.7 L RDW 15.0 Plt Count 98 L D MPV 10.3 PT with INR 12.60 H INR 1.12 PTT (Actin FS) Fibrinogen Sodium 139 Potassium 4.0 Chloride 106 Carbon Dioxide 25 Anion Gap 8 BUN 12 D Creatinine 0.9 Creat Clearance w eGFR > 60 POC Glucometer Random Glucose 219 H Calcium 7.6 L Phosphorus 2.0 L Magnesium 2.0 Total Bilirubin 0.5 AST 241 H D ALT 68 Alkaline Phosphatase 112 Creatine Kinase 8263 H Creatine Kinase Index CK-MB (CK-2) Total Protein 5.6 L Albumin 2.2 L 07/12/17 06:11 WBC RBC Hgb Hct MCV MCH MCHC RDW Plt Count MPV PT with INR INR PTT (Actin FS) Fibrinogen Sodium Potassium Chloride Carbon Dioxide Anion Gap BUN Creatinine Creat Clearance w eGFR POC Glucometer [phone] Random Glucose Calcium Phosphorus Magnesium Total Bilirubin AST ALT Alkaline Phosphatase Creatine Kinase Creatine Kinase Index CK-MB (CK-2) Total Protein Albumin Active Medications Generic Name Dose Route Start Last Admin Trade Name Freq PRN Reason Stop Dose Admin Acetaminophen 325 mg 07/11/17 12:59 Tylenol - PO Q6H PRN PAIN Atorvastatin Calcium 10 mg 07/11/17 22:00 07/11/17 21:19 Lipitor - PO 10 mg HS JENNIFER Administration Budesonide/Formoterol Fumarate 1 puff 07/11/17 22:00 07/11/17 21:21 Symbicort 160/4.5mcg - IH 1 puff BID JENNIFER Administration Chlorhexidine Gluconate 1 applic 07/11/17 22:00 07/11/17 21:19 Hibiclens For Decolonization - TP 1 applic HS JENNIFER Administration Enoxaparin Sodium 80 mg 07/11/17 16:15 07/11/17 21:18 Lovenox - SQ 80 mg BID JENNIFER Administration Escitalopram Oxalate 20 mg 07/11/17 22:00 07/11/17 21:18 Lexapro - PO 20 mg HS JENNIFER Administration Fentanyl 50 mcg 07/11/17 12:59 Sublimaze Injection - IVPUSH [id number] PRN PAIN-PACU ORDER X 4 DOSES ONLY Fentanyl 50 mcg 07/11/17 13:39 Sublimaze Injection - IVPUSH [id number] PRN PAIN-PACU ORDER X 4 DOSES ONLY Gabapentin 600 mg 07/11/17 22:00 07/11/17 21:18 Neurontin - PO 600 mg BID JENNIFER Administration Hydromorphone HCl 1 mg 07/11/17 12:59 07/12/17 05:28 Dilaudid Injection - IVPUSH 1 mg Q4H PRN Administration MODERATE PAIN Sodium Chloride 1,000 mls @ 75 mls/hr 07/11/17 12:59 07/11/17 19:00 Normal Saline - IV 75 mls/hr ASDIR JENNIFER Administration Insulin Aspart 1 vial 07/11/17 14:30 07/12/17 06:18 Novolog Vial Sliding Scale - SQ 4 units Q4H JENNIFER Administration Protocol Loratadine 10 mg 07/11/17 12:59 Claritin - PO DAILY PRN allergies Magnesium Oxide 400 mg 07/11/17 12:59 Mag-Ox - PO DAILY PRN MODERATE PAIN Mirtazapine 30 mg 07/11/17 22:00 07/11/17 21:18 Remeron - PO 30 mg HS JENNIFER Administration Montelukast Sodium 10 mg 07/11/17 22:00 07/11/17 21:19 Singulair - PO 10 mg HS JENNIFER Administration Mupirocin 1 applic 07/11/17 22:00 07/11/17 21:20 Bactroban Ointment (For Decolonization) - NS 07/15/17 09:59 1 applic BID JENNIFER Administration Non-Formulary Medication 50 mg 07/12/17 10:00 Dolutegravir Sodium PO DAILY JENNIFER Non-Formulary Medication 1 each 07/11/17 22:00 07/11/17 21:35 Emtricitabine/Tenofov Alafenam [Descovy 200-25 Mg Tablet (Nf)] PO 1 each HS JENNIFER Administration Ondansetron HCl 4 mg 07/11/17 12:59 Zofran Injection IVPUSH Q6H PRN NAUSEA AND/OR VOMITING Ondansetron HCl 4 mg 07/11/17 13:39 Zofran Injection IVPUSH Q6H PRN NAUSEA AND/OR VOMITING Oxycodone HCl 5 mg 07/11/17 12:59 Roxicodone - PO Q6H PRN PAIN Pantoprazole Sodium 20 mg 07/11/17 22:00 07/11/17 21:19 Protonix - PO 20 mg BID JENNIFER Administration Promethazine HCl 12.5 mg 07/11/17 13:39 Phenergan Injection - IVPUSH Q6H PRN NAUSEA-FOR RESCUE AFTER 15 MIN Zolpidem Tartrate 5 mg 07/11/17 22:00 07/11/17 21:19 Ambien - PO 5 mg HS JENNIFER Administration ASSESSMENT/PLAN: 57 yo woman w/ pmh of HIV (CV4 809, VL 80 on 07/04; on ARVs), DM2, HTN, CAD (s/p cardiac stent 04/15), severe PAD s/p BL SFA stents (04/17, 05/18), initially presented w/ BL LE pain, swelling and claudication in the setting of Plavix/ ASA non-compliance due to prescription shortage s/p direct thrombolysis and fasciotomy. Neuro: #Pain Control: - continue dilaudid and oxycodone #psych: - contiue lexapro - continue zolpidem CV: #CAD: PTCA on 04/15 - Continue on plavix when ok by vascular surgery to restart #HTN: resume home meds #HLD: - Can hold statin given possible rhabdo from reperfusion injury # Arterio-embolism: underwent angiogram with angioplasty/stent placement in right LE - On Heparin gtt. - S/P TPA infusion to LLE - Will hold off on RLE procedure to allow for possible resolution of clot burden and decrease acute anesthesia/ contrast burden - Neuro/pulse checks Q2H #Compartment syndrome: secondary to reperfusion syndrome - s/p fasiotomy by Dr. Guzmán yesterday, doing well today with residual motor deficit but decreased pain MSK: - can consider consulting neuro for let sided deficit if no improvement in a few days Renal: #Rhabdomyolysis - CK downtrending from 11K to 8K - Can DC fluids if primary team OK with that #BRENDAN, resolved, (1.3 on admission, now 0.9) -Avoid nephrotoxic agents -Continue IVF Endo: #DM2 - A1C 13.3 on 07/04 - BGM & ISS ID: #HIV - CV4 809, VL 80 on 07/04; on HAART - C/W Tivicay and Descovy - f/u as outpt for further management w/ PCP FEN: #FEN: - can DC IVF fper above - replete PRN - diabetic diet PPX: - lovenox per primary team - Hit Panel sent - ppi DISPO: - Stable for floor per vascular and primary team - FULL code Visit type - Emergency Visit Emergency Visit: No - New Patient This patient is new to me today: No - Critical Care Critical Care patient: Yes Total Critical Care Time (in minutes): 35 Critical Care Statement: The care of this patient involved high complexity decision making to prevent further life threatening deterioration of the patient 's condition and/or to evaluate & treat vital organ system(s) failure or risk of failure. - Discharge Referral Referred to [facility] No
[2017-07-12] MEDS ORDERED: PATIENT'S OWN MEDICATION (NON-FORMULARY) (Dolutegravir Sodium 50 MG) PO SCH (10:00)
--- NOTE | 2017-07-12 10:10 | CON.CARD ---
Consult Consult Specialty:: Cardiology Referred by:: Hospitalist Reason for Consultation:: question of antiplatelet meds in regards to h/o CAD and stent - History of Present Illness Chief Complaint: admitted with ischemic b/l LE History of Present Illness: 56-year-old woman with a history of hypertension, hyperlipidemia, diabetes type II, HIV, asthma, H. pylori, COPD, smoker, coronary artery disease status post stent to [facility] April 2015 with drug-eluting stent, total knee replacement, recently admitted Nov [facility] for LE pain found to have b/l SFA occlusion, underwent [employer] [facility] LLE and is Dec [employer] [facility] RLE admitted with b/l LE pain found to have b/ l occluded SFA. Underwent [employer] M[employer] LLE then fasciotomy LLE for possible compartment syndrome. Pt seen and examined today in nad. overall feeling better. denies any chest pain, sob, palpitations. - Past Medical History Cardio/Vascular: Yes: HTN, Hyperlipdemia Pulmonary: Yes: Asthma Hepatobiliary: Yes: Cholelithiasis ...LMP: 09/30/09 Infectious Disease: Yes: HIV Endocrine: Yes: Diabetes Mellitus - Past Surgical History Past Surgical History: Yes: Cholecystectomy - Alcohol/Substance Use Hx Alcohol Use: No - Smoking History Smoking history: Former smoker Have you smoked in the past 12 months: No Aproximately how many cigarettes per day: 5 If you are a former smoker, when did you quit?: 2 weeks ago - Social History ADL: Independent History of Recent Travel: No Home Medications - Allergies Allergies/Adverse Reactions: Allergies Allergy/AdvReac Type Severity Reaction Status Date / Time Fish Containing Products Allergy Verified 07/11/17 11:41 - Home Medications Home Medications: Ambulatory Orders Gabapentin [Neurontin] 600 mg PO BID 07/06/16 Magnesium 200 mg PO DAILY PRN 07/06/16 Dolutegravir Sodium [Tivicay] 50 mg PO DAILY #30 tablet 04/04/17 Emtricitabine/Tenofov Alafenam [Descovy 200-25 mg Tablet (Nf)] 1 each PO HS #30 tablet 04/04/17 Lisinopril 5 mg PO HS #30 tablet 04/04/17 Loratadine [Claritin -] 10 mg PO DAILY PRN #30 tablet 04/04/17 Montelukast Na [Singulair -] 10 mg PO HS 04/26/17 Clopidogrel Bisulfate [Plavix -] 75 mg PO DAILY #30 tablet 04/27/17 Aspirin [Aspirin EC] 81 mg PO DAILY 05/02/17 Insulin Glargine,Hum.rec.anlog [Toubrian Cardonajhonathansuhail] 35 unit SQ HS 05/02/17 Insulin Lispro [Humalog Kwikpen U-200] 15 unit SQ TID #7 ea 05/02/17 Omeprazole 20 mg PO BID #60 tablet. 06/01/17 Budesonide/Formeterol Fumarate [SYMBICORT 160/4.5mcg -] 1 puff IH BID 07/04/17 Clonazepam [Klonopin -] 0.5 mg PO TID #90 tablet MDD 1.5mg 07/04/17 Escitalopram Oxalate [Lexapro -] 20 mg PO HS #30 tablet 07/04/17 Mirtazapine [Remeron -] 30 mg PO HS #30 tablet 07/04/17 Olopatadine HCl [Pataday] 1 drop OP DAILY #2.5 ml 07/04/17 Oxybutynin Chloride [Oxybutynin Chloride ER] 10 mg PO DAILY 07/04/17 Zolpidem Tartrate [Ambien] 5 mg PO HS #30 tab MDD 1 07/04/17 Pravastatin Sodium [Pravachol (Nf)] 40 mg PO HS 07/09/17 Family Disease History - Family Disease History Family Disease History: Heart Disease: Grandparent, Father Vital Signs: Vital Signs Temperature 98.9 F 07/12/17 06:00 Pulse Rate 108 H 07/12/17 08:00 Respiratory Rate 16 07/12/17 08:00 Blood Pressure 104/80 07/12/17 08:00 O2 Sat by Pulse Oximetry (%) 98 07/11/17 22:08 - Other Data Labs, Other Data: CBC, BMP 07/12/17 05:15 07/12/17 05:15 INR, PTT INR 1.12 (0.82-1.09) 07/12/17 05:15 Fibrinogen 342.0 mg/dL (238-498) D 07/11/17 10:15 Assessment/Plan 56-year-old woman with a history of hypertension, hyperlipidemia, diabetes type II, HIV, asthma, H. pylori, COPD, smoker, coronary artery disease status post stent to [facility] April 2015 with drug-eluting stent, total knee replacement, recently admitted Nov [facility] for LE pain found to have b/l SFA occlusion, underwent [facility] MICA LLE and is Dec [employer] [facility] RLE admitted with b/l LE pain found to have b/ l occluded SFA. Underwent [employer] MICA LLE then fasciotomy LLE for possible compartment syndrome. Antiplatelet management- Pt had a PCI with [facility] 2014. At this point she should be on Single antiplatelet therapy for this. She was on ASA 81mg daily alone up until she had recent peripheral vascular [facility] MICA and was put on Plavix in addition to ASA by vascular at that point. She does not need both ASA and Plavix from a CAD perspective. Single antiplatelet therapy with either ASA 81mg daily or if preferred by Vascular, Plavix is acceptable as well. -currently she is not on ASA or Plavix, presumed because she is on Lovenox and has thrombocytopenia, or from concern for bleeding and compartment syndrome, unclear, need to clarify when can be resumed -when safe to do so would resume 1 antiplatelet PAD-b/l occluded SFA -no history of afib or aflutter, none seen on review of ekg/telemetry since admission -pt had recent [employer] MICA b/l SFA and was not taking her Plavix (only ASA) and continued to smoke -will discuss with vascular regarding potential etiology re localized thrombosis or embolic phenomenon, cardioembolic event seems less likely given no recorded afib or aflutter -pt is currently on Lovenox and is planned for full AC going forward as per heme and vascular notes CAD-stent LAD 2014 -stable -nuclear stress test done in office 09/2016 showed no ischemia, normal LVEF -cont statin -antiplatelet as above -not on bblocker as outpatient due to COPD and smoking HTN-low normal -monitor off anti-HTN meds for now
[2017-07-12] MEDS: BUDESONIDE/FORMETEROL FUMARATE 160/4.5 mcg INHALER IH SCH ×4 (10:14→21:55)
[2017-07-12] MEDS: GABAPENTIN 300 MG CAPSULE (FP) PO SCH ×2 (10:14→21:48)
[2017-07-12] MEDS: PATIENT'S OWN MEDICATION (NON-FORMULARY) (Dolutegravir Sodium 50 MG) PO SCH (10:15)
[2017-07-12] MEDS: PANTOPRAZOLE 20 MG TABLET (FP) PO SCH ×2 (10:15→21:49)
[2017-07-12] MEDS: ENOXAPARIN NA (PORCINE) 80 MG/0.8 ML DISP.SYRIN SQ SCH ×2 (10:15→22:49)
[2017-07-12] MEDS: MUPIROCIN 2% TOPICAL OINTMENT FOR DECOLONIZATION NS SCH ×2 (10:18→22:29)
[2017-07-12] MEDS ORDERED: oxyCODONE HCL 5 MG TABLET PO PRN ×3 (10:52→15:37)
[2017-07-12] MEDS ORDERED: MAGNESIUM OXIDE 400 MG TABLET (FP) PO PRN ×2 (10:52→14:13)
[2017-07-12] MEDS ORDERED: SODIUM CHLORIDE 1,000 ML IV SCH (10:52)
[2017-07-12] MEDS ORDERED: ONDANSETRON 4 MG/2 ML VIAL IVPUSH PRN ×3 (10:52→14:13)
[2017-07-12] MEDS ORDERED: PROMETHAZINE HCL 25 MG/1 ML VIAL IVPUSH PRN ×2 (10:52→14:13)
[2017-07-12] MEDS ORDERED: LORATADINE 10 MG TABLET PO PRN ×2 (10:52→14:13)
[2017-07-12] MEDS ORDERED: HYDROmorphone HCL CARPU-JECT 2 MG/1 ML DISP.SYRIN IVPUSH PRN ×2 (10:52→14:13)
[2017-07-12] MEDS ORDERED: ACETAMINOPHEN 325 MG TABLET (FP) PO PRN (10:52)
[2017-07-12] MEDS ORDERED: INSULIN (NOVOLOG) ASPART 100 UNITS/ML 10ML VIAL ONE (11:05)
--- NOTE | 2017-07-12 11:36 | PN ---
Progress Note (short form) - Note Progress Note: pt seen and examined. now down graded to the floor feels much better Constitutional: Yes:NAD Eyes: Yes: Conjunctiva Clear HENT: Yes: Atraumatic, Normocephalic Neck: Yes: Supple Cardiovascular: Yes: Regular Rate and Rhythm, Tachycardic Respiratory: Yes: Regular, CTA Bilaterally Gastrointestinal: Yes: Normal Bowel Sounds, Soft, Abdomen, Obese Musculoskeletal: Yes: WNL Edema: Yes Edema: LLE: in dressing, able to wiggle toes Temp Pulse Resp BP Pulse Ox 98.6 F 100 H 18 104/60 96 07/12/17 10:00 07/12/17 10:42 07/12/17 10:00 07/12/17 10:00 07/12/17 10:42 CBC, BMP 07/12/17 05:15 07/12/17 05:15 Current Medications Generic Name Dose Route Start Last Admin Trade Name Freq PRN Reason Stop Dose Admin Acetaminophen 325 mg 07/12/17 10:52 Tylenol - PO Q6H PRN PAIN Atorvastatin Calcium 10 mg 07/12/17 22:00 Lipitor - PO HS [facility] Budesonide/Formoterol Fumarate 1 puff 07/12/17 22:00 Symbicort 160/4.5mcg - IH BID [facility] Chlorhexidine Gluconate 1 applic 07/12/17 22:00 Hibiclens For Decolonization - TP HS [facility] Enoxaparin Sodium 80 mg 07/12/17 22:00 Lovenox - SQ BID [facility] Escitalopram Oxalate 20 mg 07/12/17 22:00 Lexapro - PO HS [facility] Fentanyl 50 mcg 07/12/17 10:52 Sublimaze Injection - IVPUSH [id number] PRN PAIN-PACU ORDER X 4 DOSES ONLY Gabapentin 600 mg 07/12/17 22:00 Neurontin - PO BID [facility] Hydromorphone HCl 1 mg 07/12/17 10:52 Dilaudid Injection - IVPUSH Q4H PRN MODERATE PAIN Sodium Chloride 1,000 mls @ 75 mls/hr 07/12/17 10:52 Normal Saline - IV ASDIR [facility] Insulin Aspart 1 vial 07/12/17 14:00 Novolog Vial Sliding Scale - SQ Q4HPO [facility] Protocol Loratadine 10 mg 07/12/17 10:52 Claritin - PO DAILY PRN allergies Magnesium Oxide 400 mg 07/12/17 10:52 Mag-Ox - PO DAILY PRN MODERATE PAIN Mirtazapine 30 mg 07/12/17 22:00 Remeron - PO HS JENNIFER Montelukast Sodium 10 mg 07/12/17 22:00 Singulair - PO HS JENNIFER Mupirocin 1 applic 07/12/17 22:00 Bactroban Ointment (For Decolonization) - NS 07/15/17 09:59 BID JENNIFER Non-Formulary Medication 50 mg 07/13/17 10:00 Dolutegravir Sodium PO DAILY JENNIFER Non-Formulary Medication 1 each 07/12/17 22:00 Emtricitabine/Tenofov Alafenam [Descovy 200-25 Mg Tablet (Nf)] PO HS JENNIFER Ondansetron HCl 4 mg 07/12/17 10:52 Zofran Injection IVPUSH Q6H PRN NAUSEA AND/OR VOMITING Oxycodone HCl 5 mg 07/12/17 10:52 Roxicodone - PO Q6H PRN PAIN Pantoprazole Sodium 20 mg 07/12/17 22:00 Protonix - PO BID JENNIFER Promethazine HCl 12.5 mg 07/12/17 10:52 Phenergan Injection - IVPUSH Q6H PRN NAUSEA-FOR RESCUE AFTER 15 MIN Zolpidem Tartrate 5 mg 07/12/17 22:00 Ambien - PO HS PRN LLE arterial Thrombi compartement syndrome s/p left fasciotomy. PAD anemia thrombocytopenia HIV appreciate cardiology recs Choice of AC : on Lovenox now , ASA with either warfarin/NOACs would be the likely choice Noted drop in Hgb, monitor closely, will monitor the am CBC, if still low, full w/u to be done thrombocytopenia improving
[2017-07-12] MEDS ORDERED: INSULIN SLIDING SCALE (NOVOLOG) 1 VIAL SQ SCH ×2 (14:00→14:30)
--- NOTE | 2017-07-12 14:36 | PN ---
Teaching Attending Note Name of Resident: Catalina Murray ATTENDING PHYSICIAN STATEMENT I saw and evaluated the patient. I reviewed the resident's note and discussed the case with the resident. I agree with the resident's findings and plan as documented. SUBJECTIVE: No fever or chills, pain in L leg is better. has some sensation back to L foot OBJECTIVE: NAD Lungs : CTAB CV: RRR, no MRG Ext: L calf is less tense compared to yesterday,with a longitudinal woun on each side with fresh pink muscles exposed. decreased sensation on L dorsal foot , with 1+ DP on L , and doplearable DP and PT on R. can wiggle L toes, but not move the ankle . movement and sensation in R foot and leg intact . L foot drop ASSESSMENT AND PLAN: 57 y/o lady with h/o CAD, s/p stenting in 2014, HLP, HTN, and other medical problems who presented with b/l LE pain , and was found ot have acute ischemia of LEs, then developed compartment syndrome after reperfusion of L leg 1- Acute ischemia of LEs s/p SFA stent 07/09, with development of compartment syndrome of L leg s/p fascietomy 07/11 . Now gained some sensationand can wiggle toes. - cont lovenox - after results of HIT abs, will start eliquis. ( will confirm insurance coverage ) - pain control with dilaudid and oxcodone - durationof AC for life 2- Thrombocytopenia :likely ocnsumtive , better plt count today . - HIT Abs pending - lovenox for now . 3- BRENDAN : resolved 4- h/o CAD , s/p stenting : - appreciate card help. will start on ASa when OK with Suregry ( likely after the wound closure ) 5- DM : - start 30 of levemir in HS - cont SSI TX to floor
[2017-07-12] MEDS ORDERED: HYDROmorphone HCL CARPU-JECT 1 MG/1 ML DISP.SYRIN ONE (14:41)
[2017-07-12] MEDS: SODIUM CHLORIDE 1,000 ML IV SCH (14:52)
--- NOTE | 2017-07-12 15:06 | PN ---
Teaching Attending Note Name of Resident: Norbert Washington ATTENDING PHYSICIAN STATEMENT I saw and evaluated the patient. I reviewed the resident's note and discussed the case with the resident. I agree with the resident's findings and plan as documented. SUBJECTIVE: Patient seen and examined in the ICU. Awake and alert. Still with numbness and tingling in her left foot. Pain is improved. No CP or SOB. OBJECTIVE: Intake & Output 07/09/17 07/10/17 07/11/17 07/12/17 23:59 23:59 23:59 23:59 Intake Total 2592 2359 4720 1540 Output Total 50 1600 1375 Balance 2542 759 3345 1540 Weight 155 lb 165 lb 6 oz 169 lb 1.6 oz 165 lb 9.6 oz Last Vital Signs Temp Pulse Resp BP Pulse Ox 98 F 104 H 18 100/52 96 07/12/17 14:00 07/12/17 14:00 07/12/17 14:00 07/12/17 14:00 07/12/17 14:17 Active Medications Acetaminophen (Tylenol -) 325 mg PO Q6H PRN PRN Reason: PAIN Atorvastatin Calcium (Lipitor -) 10 mg PO HS [facility] Budesonide/Formoterol Fumarate (Symbicort 160/4.5mcg -) 1 puff IH BID [facility] Chlorhexidine Gluconate (Hibiclens For Decolonization -) 1 applic TP HS [facility] Enoxaparin Sodium (Lovenox -) 80 mg SQ BID [facility] Escitalopram Oxalate (Lexapro -) 20 mg PO HS [facility] Fentanyl (Sublimaze Injection -) 50 mcg IVPUSH [id number] PRN PRN Reason: PAIN-PACU ORDER X 4 DOSES ONLY Gabapentin (Neurontin -) 600 mg PO BID [facility] Hydromorphone HCl (Dilaudid Injection -) 1 mg IVPUSH Q4H PRN PRN Reason: MODERATE PAIN 6-10 Last Admin: 07/12/17 14:44 Dose: 1 mg Sodium Chloride (Normal Saline -) 1,000 mls @ 75 mls/hr IV ASDIR [facility] Last Admin: 07/12/17 14:52 Dose: 75 mls/hr Insulin Aspart (Novolog Vial Sliding Scale -) 1 vial SQ Q4H [facility] PRN Reason: Protocol Insulin Detemir (Levemir Vial) 30 units SQ HS [facility] Loratadine (Claritin -) 10 mg PO DAILY PRN PRN Reason: allergies Magnesium Oxide (Mag-Ox -) 400 mg PO DAILY PRN PRN Reason: MODERATE PAIN Mirtazapine (Remeron -) 30 mg PO HS [facility] Montelukast Sodium (Singulair -) 10 mg PO HS [facility] Mupirocin (Bactroban Ointment (For Decolonization) -) 1 applic NS BID [facility] Stop: 07/15/17 09:59 Non-Formulary Medication (Dolutegravir Sodium) 50 mg PO DAILY [facility] Non-Formulary Medication (Emtricitabine/Tenofov Alafenam [Descovy 200-25 Mg Tablet (Nf)]) 1 each PO HS [facility] Ondansetron HCl (Zofran Injection) 4 mg IVPUSH Q6H PRN PRN Reason: NAUSEA AND/OR VOMITING Oxycodone HCl (Roxicodone -) 5 mg PO Q6H PRN PRN Reason: PAIN Pantoprazole Sodium (Protonix -) 20 mg PO BID [facility] Promethazine HCl (Phenergan Injection -) 12.5 mg IVPUSH Q6H PRN PRN Reason: NAUSEA-FOR RESCUE AFTER 15 MIN Zolpidem Tartrate (Ambien -) 5 mg PO HS PRN Gen: Awake and alert, Less pain with movement Heart: S1S2, regular Lung: decreased breath sounds at the bases Abd: soft, nontender Ext: LLE edema, pain to palpation Laboratory Results - last 24 hr 07/09/17 07/10/17 07/10/17 23:27 05:59 11:18 WBC RBC Hgb Hct MCV MCH MCHC RDW Plt Count MPV PT with INR INR PTT (Actin FS) Sodium Potassium Chloride Carbon Dioxide Anion Gap BUN Creatinine Creat Clearance w eGFR POC Glucometer 236.25283 223.33383 [phone] Random Glucose Calcium Phosphorus Magnesium Total Bilirubin AST ALT Alkaline Phosphatase Creatine Kinase Creatine Kinase Index CK-MB (CK-2) Total Protein Albumin 07/10/17 07/10/17 07/10/17 14:59 17:16 21:37 WBC RBC Hgb Hct MCV MCH MCHC RDW Plt Count MPV PT with INR INR PTT (Actin FS) Sodium Potassium Chloride Carbon Dioxide Anion Gap BUN Creatinine Creat Clearance w eGFR POC Glucometer 112.95671 190.55395 [phone] Random Glucose Calcium Phosphorus Magnesium Total Bilirubin AST ALT Alkaline Phosphatase Creatine Kinase Creatine Kinase Index CK-MB (CK-2) Total Protein Albumin 07/11/17 07/11/17 07/11/17 02:36 05:29 16:33 WBC RBC Hgb Hct MCV MCH MCHC RDW Plt Count MPV PT with INR INR PTT (Actin FS) Sodium Potassium Chloride Carbon Dioxide Anion Gap BUN Creatinine Creat Clearance w eGFR POC Glucometer 180.56677 188.82997 [phone] Random Glucose Calcium Phosphorus Magnesium Total Bilirubin AST ALT Alkaline Phosphatase Creatine Kinase Creatine Kinase Index CK-MB (CK-2) Total Protein Albumin 07/11/17 07/11/17 07/12/17 18:44 21:39 02:11 WBC RBC Hgb Hct MCV MCH MCHC RDW Plt Count MPV PT with INR INR PTT (Actin FS) Sodium Potassium Chloride Carbon Dioxide Anion Gap BUN Creatinine Creat Clearance w eGFR POC Glucometer > 400 [phone] Random Glucose Calcium Phosphorus Magnesium Total Bilirubin AST ALT Alkaline Phosphatase Creatine Kinase Creatine Kinase Index CK-MB (CK-2) Total Protein Albumin 07/12/17 07/12/17 07/12/17 05:10 05:15 05:15 WBC 11.2 H D RBC 3.29 L Hgb 8.7 L Hct 27.5 L MCV 83.7 MCH 26.6 MCHC 31.7 L RDW 15.0 Plt Count 98 L D MPV 10.3 PT with INR 12.60 H INR 1.12 PTT (Actin FS) 29.2 Sodium Potassium Chloride Carbon Dioxide Anion Gap BUN Creatinine Creat Clearance w eGFR POC Glucometer Random Glucose Calcium Phosphorus Magnesium Total Bilirubin AST ALT Alkaline Phosphatase Creatine Kinase Creatine Kinase Index CK-MB (CK-2) Total Protein Albumin 07/12/17 07/12/17 07/12/17 05:15 06:11 11:09 WBC RBC Hgb Hct MCV MCH MCHC RDW Plt Count MPV PT with INR INR PTT (Actin FS) Sodium 139 Potassium 4.0 Chloride 106 Carbon Dioxide 25 Anion Gap 8 BUN 12 D Creatinine 0.9 Creat Clearance w eGFR > 60 POC Glucometer 230.04666 [phone] Random Glucose 219 H Calcium 7.6 L Phosphorus 2.0 L Magnesium 2.0 Total Bilirubin 0.5 AST 241 H D ALT 68 Alkaline Phosphatase 112 Creatine Kinase 8263 H Creatine Kinase Index 0.2 CK-MB (CK-2) 20.040 H Total Protein 5.6 L Albumin 2.2 L ASSESSMENT AND PLAN: LLE Thrombi/Limb Ischemia s/p Aortgram/LLE angiogram/SFA, popliteal artery, tibial artery angioplasty/SFA stent placement/iinfusion of TPA LLE Compartment Syndrome Rhabdomyolysis s/p Urgent Fasciotomy CAD HTN DM HIV - continue anticoagulation per surgery - doppler checks - plavix - pain control - IVF - monitor urine output, creatinine - trend CPK - Floor when ok with surgery Dr Hansen Critical care time spent in reviewing chart, evaluating patient and formulating plan 35min
[2017-07-12] MEDS ORDERED: PT OWN MED DRAWER 7, Y5N ONE ×3 (17:22→22:11)
[2017-07-12] MEDS ORDERED: ESCITALOPRAM OXALATE 10 MG TABLET (FP) ONE (21:27)
[2017-07-12] MEDS: MIRTAZAPINE 30 MG TABLET (FP) PO SCH (21:48)
[2017-07-12] MEDS: ESCITALOPRAM OXALATE 20 MG TABLET (FP) PO SCH (21:49)
[2017-07-12] MEDS: ATORVASTATIN CA 10 MG TABLET (FP) PO SCH (21:49)
[2017-07-12] MEDS: oxyCODONE HCL 5 MG TABLET PO PRN (21:49)
[2017-07-12] MEDS: INSULIN DETEMIR 100 UNITS/ML MDV SQ SCH (21:50)
[2017-07-12] MEDS: ACETAMINOPHEN 325 MG TABLET (FP) PO PRN (21:50)
[2017-07-12] MEDS: MONTELUKAST NA 10 MG TABLET PO SCH (21:50)
[2017-07-12] MEDS: PATIENT'S OWN MEDICATION (NON-FORMULARY) (Emtricitabine/Tenofov Alafenam [Descovy 200-25 M PO SCH (21:59)
[2017-07-12] MEDS ORDERED: ESCITALOPRAM OXALATE 20 MG TABLET (FP) PO SCH (22:00)
[2017-07-12] MEDS ORDERED: ATORVASTATIN CA 10 MG TABLET (FP) PO SCH (22:00)
[2017-07-12] MEDS ORDERED: ENOXAPARIN NA (PORCINE) 80 MG/0.8 ML DISP.SYRIN SQ SCH (22:00)
[2017-07-12] MEDS ORDERED: PANTOPRAZOLE 20 MG TABLET (FP) PO SCH (22:00)
[2017-07-12] MEDS ORDERED: PATIENT'S OWN MEDICATION (NON-FORMULARY) (Emtricitabine/Tenofov Alafenam [Descovy 200-25 M PO SCH (22:00)
[2017-07-12] MEDS ORDERED: CHLORHEXIDINE GLUCONATE 4% CLEANSER FOR DECOLONIZATION TP SCH ×2 (22:00)
[2017-07-12] MEDS ORDERED: BUDESONIDE/FORMETEROL FUMARATE 160/4.5 mcg INHALER IH SCH (22:00)
[2017-07-12] MEDS ORDERED: MUPIROCIN 2% TOPICAL OINTMENT FOR DECOLONIZATION NS SCH (22:00)
[2017-07-12] MEDS ORDERED: ZOLPIDEM TARTRATE 5 MG TABLET PO PRN ×2 (22:00)
[2017-07-12] MEDS ORDERED: GABAPENTIN 300 MG CAPSULE (FP) PO SCH (22:00)
[2017-07-12] MEDS ORDERED: MONTELUKAST NA 10 MG TABLET PO SCH (22:00)
[2017-07-12] MEDS ORDERED: MIRTAZAPINE 30 MG TABLET (FP) PO SCH (22:00)
[2017-07-13 06:18] LABS: HEMATOCRIT 24.5 % (32.4-45.2); MCH 27.2 pg (25.7-33.7); MCHC 32.9 g/dl (32.0-36.0); MEAN CELL VOLUME 82.7 fl (80-96); MEAN PLT VOLUME 9.4 fl (7.5-11.1); PLATELET COUNT 115 K/MM3 (134-434); RBC 2.96 M/mm3 (3.60-5.2); RDW 15.1 % (11.6-15.6); WHITE BLOOD COUNT 10.7 K/mm3 (4.0-10.0)
[2017-07-13] MEDS: ACETAMINOPHEN 325 MG TABLET (FP) PO PRN ×3 (06:30→22:20)
[2017-07-13] MEDS: oxyCODONE HCL 5 MG TABLET PO PRN ×3 (06:30→22:19)
[2017-07-13] MEDS: INSULIN SLIDING SCALE (NOVOLOG) 1 VIAL SQ SCH ×4 (06:31→22:23)
--- NOTE | 2017-07-13 06:54 | PN ---
Physical Exam: SUBJECTIVE: Patient seen and examined. No fever or chills. Feels pain is not well controlled with oxycodone 5mg. Reports no BM several days. OBJECTIVE: Vital Signs Period Temp Pulse Resp BP Sys/Cota Pulse Ox Last 24 Hr 97.7 F-99.5 F 100-111 16-18 100-135/52-80 96-96 GENERAL: mild distress, aaox3 EYES: sclera anicteric, conjunctiva clear ENT: oropharynx clear without exudates, MMM LUNGS: CTAB HEART: tachycardic, regular rhythm, no m/r/g ABDOMEN: Soft, ntnd LOWER EXTREMITIES: L DP/PT +dopplers, L calf s/p fasciotomy with pink tissue, no purulent drainage, sensation returned to dorsal and plantar aspects, slight improvement in toe movement CBC, BMP 07/13/17 05:40 07/12/17 05:15 Hepatic Panel Total Bilirubin 0.5 mg/dL (0.2-1.0) 07/12/17 05:15 AST 241 U/L (15-37) H D 07/12/17 05:15 ALT 68 U/L (12-78) 07/12/17 05:15 Alkaline Phosphatase 112 U/L (45-117) 07/12/17 05:15 Albumin 2.2 g/dl (3.4-5.0) L 07/12/17 05:15 Active Medications Acetaminophen (Tylenol -) 325 mg PO Q4H PRN PRN Reason: PAIN Last Admin: 07/13/17 17:01 Dose: 325 mg Aspirin (Ecotrin -) 81 mg PO DAILY COUNTS INCLUDE 234 BEDS AT THE [facility] Last Admin: 07/13/17 09:29 Dose: 81 mg Atorvastatin Calcium (Lipitor -) 10 mg PO HS COUNTS INCLUDE 234 BEDS AT THE [facility] Last Admin: 07/12/17 21:49 Dose: 10 mg Bisacodyl (Dulcolax -) 5 mg PO DAILY PRN PRN Reason: CONSTIPATION Budesonide/Formoterol Fumarate (Symbicort 160/4.5mcg -) 1 puff IH BID COUNTS INCLUDE 234 BEDS AT THE [facility] Last Admin: 07/13/17 09:17 Dose: 1 inh Enoxaparin Sodium (Lovenox -) 80 mg SQ BID COUNTS INCLUDE 234 BEDS AT THE [facility] Last Admin: 07/13/17 09:17 Dose: 80 mg Escitalopram Oxalate (Lexapro -) 20 mg PO HS COUNTS INCLUDE 234 BEDS AT THE [facility] Last Admin: 07/12/17 21:49 Dose: 20 mg Gabapentin (Neurontin -) 600 mg PO BID COUNTS INCLUDE 234 BEDS AT THE [facility] Last Admin: 07/13/17 09:17 Dose: 600 mg Insulin Aspart (Novolog Vial Sliding Scale -) 1 vial SQ [facility] PRN Reason: Protocol Last Admin: 07/13/17 17:02 Dose: 2 units Insulin Detemir (Levemir Vial) 30 units SQ [facility] Last Admin: 07/12/17 21:50 Dose: 30 units Loratadine (Claritin -) 10 mg PO DAILY PRN PRN Reason: allergies Mirtazapine (Remeron -) 30 mg PO [facility] Last Admin: 07/12/17 21:48 Dose: 30 mg Montelukast Sodium (Singulair -) 10 mg PO [facility] Last Admin: 07/12/17 21:50 Dose: 10 mg Non-Formulary Medication (Dolutegravir Sodium) 50 mg PO DAILY COUNTS INCLUDE 234 BEDS AT THE [facility] Last Admin: 07/13/17 09:20 Dose: Not Given Non-Formulary Medication (Emtricitabine/Tenofov Alafenam [Descovy 200-25 Mg Tablet (Nf)]) 1 each PO [facility] Last Admin: 07/12/17 21:59 Dose: 1 each Ondansetron HCl (Zofran Injection) 4 mg IVPUSH Q6H PRN PRN Reason: NAUSEA AND/OR VOMITING Oxycodone HCl (Roxicodone -) 10 mg PO Q4H PRN PRN Reason: PAIN LEVEL 6-10 Last Admin: 07/13/17 17:02 Dose: 10 mg Pantoprazole Sodium (Protonix -) 20 mg PO BID COUNTS INCLUDE 234 BEDS AT THE [facility] Last Admin: 07/13/17 09:17 Dose: 20 mg Polyethylene Glycol (Miralax (For Daily Use) -) 17 gm PO BID COUNTS INCLUDE 234 BEDS AT THE [facility] Last Admin: 07/13/17 13:07 Dose: 17 gm Promethazine HCl (Phenergan Injection -) 12.5 mg IVPUSH Q6H PRN PRN Reason: NAUSEA-FOR RESCUE AFTER 15 MIN Zolpidem Tartrate (Ambien -) 5 mg PO PRN ASSESSMENT/PLAN: 57yo woman with PMH HIV (CD4 725, VL 180 on 07/04; on HAART), DM2, HTN, CAD (s/p cardiac stent 04/15), BL SFA stents (04/17, 05/18), who p/w BL LE pain, swelling and inability to ambulate for several days prior to admission, and found to have b/l occlusions of LE in the setting of medication non-compliance ( Plavix). #L limb ischemia, POD2 s/p LLE fasciotomy for compartment syndrome s/p LLE angiogram; SFA, popliteal, tibial angioplasty; SFA stent placement w/ TPA infusion -Vascular surgery by Dr. Guzmán. may go back to OR for closure of fasciotomy. -c/w Lovenox 80mg BID -increase pain control with Gwen 10mg Q4H + Acetaminophen 325mg Q4H -pulse checks q4h #thrombocytopenia, improving, likely 2/2 consumption -f/u HIT Ab to r/o HIT #BRENDAN, resolved -Avoid nephrotoxic agents #DM2 - A1C 13.3 on 07/04 - BGM & ISS q4h #HTN - hold home meds for now #HIV - CV4 809, VL 80 on 07/04; on HAART - C/W Tivicay and Descovy - f/u as outpt for further management w/ PCP #CAD (s/p cardiac stent) -Cardiology consulted (Dr. Fritz). Will continue with ASA 81 daily #HLD - Triglycerides 1264, Cholesterol 278 on 07/04 -lipitor 10mg HS #PPX -DVT - lovenox -GI - c/w home ppi #FEN: PO hydration / lytes wnl / DM, Na controlled diet #DISPO: M/S FULL code d/w Dr. Steph Murray MD PGY1 - Internal Medicine Visit type - Emergency Visit Emergency Visit: No - New Patient This patient is new to me today: No - Critical Care Critical Care patient: No
--- NOTE | 2017-07-13 08:06 | PN ---
Progress Note (short form) - Note Progress Note: Surgery POD# 2 left LE fasciotomy patient seen and examined at bedside. Patient states pain is controlled. she denies any CP, SOB, N/V/D or new/worsening left leg symptoms. Vital Signs Temp 99.5 F 07/13/17 05:56 Pulse 110 H 07/13/17 05:56 Resp 18 07/13/17 05:56 BP 108/67 07/13/17 05:56 Pulse Ox 96 07/12/17 21:00 Intake & Output 07/12/17 07/12/17 07/13/17 11:59 23:59 11:59 Intake Total 1140 400 Balance 1140 400 Weight 165 lb 9.6 oz 170 lb 9 oz Intake: IV 900 Normal Saline - 1,000 ml 900 @ 75 mls/hr IV ASDIR JENNIFER Rx#:[id number] Oral 240 400 Other: Voiding Method Toilet Toilet # Unmeasured Voids Void 2 2 Bowel Movement No No Weight Measurement Method Built in Bedscale Built in Bedscale CBC, BMP 07/13/17 05:40 07/12/17 05:15 PE: A&Ox3, NAD unlabored resp on RA left LE compartments soft and supple. incisions clean and intact with no evidence d/c or tracking erythema. Left foot is warm and well perfused and patient is able to initiate some movement of toes. Patient is not able to dorsiflex but can tolerate passive dorsiflexion with minimal pain. Incision sites redressed. Right LE compartments are soft, supple and non-tender, foot warm and well perfused. ROM of ankle,foot and toes without restriction. Problem List - Problems (1) Compartment syndrome of left lower extremity Assessment/Plan: s/p fasciotomy patient doing well. Will likely take her back to OR for delayed wound closure. Plan: 1) Continue daily dressing changes with Xeroform, 4x4 and curlex 2) OOB with PT as tolerated-up to chair for meals 3) DVT prophylaxis 4) Pain control Code(s): T79.A22A - TRAUMATIC COMPARTMENT SYNDROME OF LEFT LOWER EXTREMITY, INIT
[2017-07-13] MEDS ORDERED: PT OWN MED DRAWER 7, Y5N ONE ×2 (09:10→21:34)
[2017-07-13] MEDS: MUPIROCIN 2% TOPICAL OINTMENT FOR DECOLONIZATION NS SCH (09:16)
[2017-07-13] MEDS: PANTOPRAZOLE 20 MG TABLET (FP) PO SCH ×2 (09:17→22:13)
[2017-07-13] MEDS: BUDESONIDE/FORMETEROL FUMARATE 160/4.5 mcg INHALER IH SCH ×2 (09:17→22:17)
[2017-07-13] MEDS: ENOXAPARIN NA (PORCINE) 80 MG/0.8 ML DISP.SYRIN SQ SCH ×2 (09:17→22:12)
[2017-07-13] MEDS: GABAPENTIN 300 MG CAPSULE (FP) PO SCH ×2 (09:17→22:13)
[2017-07-13] MEDS: PATIENT'S OWN MEDICATION (NON-FORMULARY) (Dolutegravir Sodium 50 MG) PO SCH (09:20)
[2017-07-13] MEDS ORDERED: ASPIRIN 81 MG CHEWABLE TABLETS ONE (09:26)
[2017-07-13] MEDS: ASPIRIN COATED 81 MG TABLET.EC PO SCH (09:29)
[2017-07-13] MEDS ORDERED: PATIENT'S OWN MEDICATION (NON-FORMULARY) (Dolutegravir Sodium 50 MG) PO SCH (10:00)
[2017-07-13] MEDS: SODIUM CHLORIDE 1,000 ML IV SCH (10:55)
[2017-07-13] MEDS ORDERED: INSULIN (NOVOLOG) ASPART 100 UNITS/ML 10ML VIAL ONE ×2 (11:42→21:35)
--- NOTE | 2017-07-13 11:59 | PN ---
Progress Note, Physician History of Present Illness: seen and examined today in nad. no overnight events. no new complaints. states she is regaining some movement in her L toes. - Current Medication List Current Medications: Active Medications Acetaminophen (Tylenol -) 325 mg PO Q6H PRN PRN Reason: PAIN Last Admin: 07/13/17 06:30 Dose: 325 mg Aspirin (Ecotrin -) 81 mg PO DAILY [facility] Last Admin: 07/13/17 09:29 Dose: 81 mg Atorvastatin Calcium (Lipitor -) 10 mg PO HS [facility] Last Admin: 07/12/17 21:49 Dose: 10 mg Budesonide/Formoterol Fumarate (Symbicort 160/4.5mcg -) 1 puff IH BID [facility] Last Admin: 07/13/17 09:17 Dose: 1 inh Chlorhexidine Gluconate (Hibiclens For Decolonization -) 1 applic TP [facility] Last Admin: 07/12/17 22:33 Dose: Not Given Enoxaparin Sodium (Lovenox -) 80 mg SQ BID [facility] Last Admin: 07/13/17 09:17 Dose: 80 mg Escitalopram Oxalate (Lexapro -) 20 mg PO [facility] Last Admin: 07/12/17 21:49 Dose: 20 mg Gabapentin (Neurontin -) 600 mg PO BID [facility] Last Admin: 07/13/17 09:17 Dose: 600 mg Sodium Chloride (Normal Saline -) 1,000 mls @ 75 mls/hr IV ASDIR [facility] Last Admin: 07/13/17 10:55 Dose: 75 mls/hr Insulin Aspart (Novolog Vial Sliding Scale -) 1 vial SQ ACHS [facility] PRN Reason: Protocol Last Admin: 07/13/17 11:44 Dose: 2 units Insulin Detemir (Levemir Vial) 30 units SQ [facility] Last Admin: 07/12/17 21:50 Dose: 30 units Loratadine (Claritin -) 10 mg PO DAILY PRN PRN Reason: allergies Mirtazapine (Remeron -) 30 mg PO [facility] Last Admin: 07/12/17 21:48 Dose: 30 mg Montelukast Sodium (Singulair -) 10 mg PO [facility] Last Admin: 07/12/17 21:50 Dose: 10 mg Mupirocin (Bactroban Ointment (For Decolonization) -) 1 applic NS BID [facility] Stop: 07/15/17 09:59 Last Admin: 07/13/17 09:16 Dose: Not Given Non-Formulary Medication (Dolutegravir Sodium) 50 mg PO DAILY [facility] Last Admin: 07/13/17 09:20 Dose: Not Given Non-Formulary Medication (Emtricitabine/Tenofov Alafenam [Descovy 200-25 Mg Tablet (Nf)]) 1 each PO HS [facility] Last Admin: 07/12/17 21:59 Dose: 1 each Ondansetron HCl (Zofran Injection) 4 mg IVPUSH Q6H PRN PRN Reason: NAUSEA AND/OR VOMITING Oxycodone HCl (Roxicodone -) 10 mg PO Q4H PRN PRN Reason: PAIN LEVEL 6-10 Pantoprazole Sodium (Protonix -) 20 mg PO BID [facility] Last Admin: 07/13/17 09:17 Dose: 20 mg Promethazine HCl (Phenergan Injection -) 12.5 mg IVPUSH Q6H PRN PRN Reason: NAUSEA-FOR RESCUE AFTER 15 MIN Zolpidem Tartrate (Ambien -) 5 mg PO HS PRN - Objective Vital Signs: Vital Signs Temperature 99.4 F 07/13/17 11:05 Pulse Rate 99 H 07/13/17 08:04 Respiratory Rate 18 07/13/17 08:04 Blood Pressure 132/82 07/13/17 08:04 O2 Sat by Pulse Oximetry (%) 96 07/13/17 09:00 Constitutional: Yes: No Distress, Calm Eyes: Yes: Conjunctiva Clear, EOM Intact HENT: Yes: Atraumatic, Normocephalic Neck: Yes: Supple, Trachea Midline Cardiovascular: Yes: Regular Rate and Rhythm, S1, S2. No: Bradycardia, Tachycardia, Pulse Irregular, Bruit, JVD, Gallop, Murmur, Rub, S3, S4, Varicosities Respiratory: Yes: Regular, CTA Bilaterally. No: Rales, Rhonchi, Wheezes Gastrointestinal: Yes: Normal Bowel Sounds, Soft. No: Distention, Tenderness Musculoskeletal: Yes: WNL Extremities: Yes: Pallor Edema: Yes Peripheral Pulses WNL: No Neurological: Yes: Alert, Oriented Psychiatric: Yes: Alert, Oriented Labs: CBC, BMP 07/13/17 05:40 07/12/17 05:15 INR, PTT INR 1.12 (0.82-1.09) 07/12/17 05:15 Fibrinogen 342.0 mg/dL (238-498) D 07/11/17 10:15 - ....Imaging Chest X-ray: Report Reviewed, Image Reviewed EKG: Report Reviewed, Image Reviewed Other: Report Reviewed, Image Reviewed Assessment/Plan 56-year-old woman with a history of hypertension, hyperlipidemia, diabetes type II, HIV, asthma, H. pylori, COPD, smoker, coronary artery disease status post stent to LAD April 2015 with drug-eluting stent, total knee replacement, recently admitted [facility] for LE pain found to have b/l SFA occlusion, underwent COUNTERINTELLIGENCE SPECIALIST LLE and is Dec COUNTERINTELLIGENCE SPECIALIST [facility] admitted with b/l LE pain found to have b/ l occluded SFA. Underwent COUNTERINTELLIGENCE SPECIALIST LLE then fasciotomy LLE for possible compartment syndrome. Antiplatelet management- -from CAD/stent standpoint would need single antiplatelet (ASA or Plavix) half-way -ASA 81mg daily has been resumed -currently on Lovenox with plan to change to po AC after surgery PAD-b/l occluded SFA -no history of afib or aflutter, none seen on review of ekg/telemetry since admission -pt had recent COUNTERINTELLIGENCE SPECIALIST b/l SFA and was not taking her Plavix (only ASA) and continued to smoke -unclear if this is localized thrombosis with thrombus propagation or an embolic event -she has not had a documented AFib/aflutter episode as far as I have seen therefore I would favor a localized thrombotic event as the source especially in light of recent COUNTERINTELLIGENCE SPECIALIST for her PAD and non-adherence with Plavix and continued smoking -in either case full AC would be beneficial going forward to prevent future recurrence -plan for now to cont Lovenox until after surgery and then transition to po AC going forward with either coumadin or NOAC in addition to single antiplatelet therapy CAD-stent LAD 2014 -stable -nuclear stress test done in office 09/2016 showed no ischemia, normal LVEF -cont statin -antiplatelet as above -not on bblocker as outpatient due to COPD and smoking HTN-adequately controlled -monitor for now
[2017-07-13] MEDS ORDERED: BISACODYL 5 MG TABLET.DR (FP) PO PRN (12:17)
[2017-07-13] MEDS: POLYETHYLENE GLYCOL 3350 119 GM BTL PO SCH ×2 (13:07→22:40)
--- NOTE | 2017-07-13 13:07 | PN ---
Progress Note (short form) - Note Progress Note: pt seen and examined. feels about the same, she could move her LLE toes, pain controlled Last Vital Signs Temp Pulse Resp BP Pulse Ox 99.4 F 99 H 18 132/82 96 07/13/17 11:05 07/13/17 08:04 07/13/17 08:04 07/13/17 08:04 07/13/17 09:00 CBC, BMP 07/13/17 05:40 07/12/17 05:15 Current Medications Generic Name Dose Route Start Last Admin Trade Name Freq PRN Reason Stop Dose Admin Acetaminophen 325 mg 07/13/17 12:15 Tylenol - PO Q4H PRN PAIN Aspirin 81 mg 07/13/17 10:00 07/13/17 09:29 Ecotrin - PO 81 mg DAILY [facility] Administration Atorvastatin Calcium 10 mg 07/12/17 22:00 07/12/17 21:49 Lipitor - PO 10 mg HS [facility]ENN[facility]ER Administration Bisacodyl 5 mg 07/13/17 12:17 Dulcolax - PO DAILY PRN CONSTIPATION Budesonide/Formoterol Fumarate 1 puff 07/12/17 22:00 07/13/17 09:17 Symbicort 160/4.5mcg - IH 1 inh BID [facility]ER Administration Enoxaparin Sodium 80 mg 07/12/17 22:00 07/13/17 09:17 Lovenox - SQ 80 mg BID [facility] Administration Escitalopram Oxalate 20 mg 07/12/17 22:00 07/12/17 21:49 Lexapro - PO 20 mg HS [facility] Administration Gabapentin 600 mg 07/12/17 22:00 07/13/17 09:17 Neurontin - PO 600 mg BID [facility] Administration Insulin Aspart 1 vial 07/12/17 16:30 07/13/17 11:44 Novolog Vial Sliding Scale - SQ 2 units ACHS [facility]ENN[facility]ER Administration Protocol Insulin Detemir 30 units 07/12/17 22:00 07/12/17 21:50 Levemir Vial SQ 30 units HS [facility] Administration Loratadine 10 mg 07/12/17 14:13 Claritin - PO DAILY PRN allergies Mirtazapine 30 mg 07/12/17 22:00 07/12/17 21:48 Remeron - PO 30 mg HS [facility] Administration Montelukast Sodium 10 mg 07/12/17 22:00 07/12/17 21:50 Singulair - PO 10 mg HS [facility] Administration Non-Formulary Medication 50 mg 07/13/17 10:00 07/13/17 09:20 Dolutegravir Sodium PO Not Given DAILY [facility] Non-Formulary Medication 1 each 07/12/17 22:00 07/12/17 21:59 Emtricitabine/Tenofov Alafenam [Descovy 200-25 Mg Tablet (Nf)] PO 1 each HS [facility] Administration Ondansetron HCl 4 mg 07/12/17 14:13 Zofran Injection IVPUSH Q6H PRN NAUSEA AND/OR VOMITING Oxycodone HCl 10 mg 07/13/17 11:56 Roxicodone - PO Q4H PRN PAIN LEVEL 6-10 Pantoprazole Sodium 20 mg 07/12/17 22:00 07/13/17 09:17 Protonix - PO 20 mg BID [facility] Administration Polyethylene Glycol 17 gm 07/13/17 12:30 Miralax (For Daily Use) - PO BID [facility] Promethazine HCl 12.5 mg 07/12/17 14:13 Phenergan Injection - IVPUSH Q6H PRN NAUSEA-FOR RESCUE AFTER 15 MIN Zolpidem Tartrate 5 mg 07/12/17 22:00 Ambien - PO HS PRN Constitutional: Yes:NAD Eyes: Yes: Conjunctiva Clear HENT: Yes: Atraumatic, Normocephalic Neck: Yes: Supple Cardiovascular: Yes: Regular Rate and Rhythm, Tachycardic Respiratory: Yes: Regular, CTA Bilaterally Gastrointestinal: Yes: Normal Bowel Sounds, Soft, Abdomen, Obese Musculoskeletal: Yes: WNL Edema: Yes Edema: LLE: in dressing, able to wiggle toes LLE arterial Thrombi compartement syndrome s/p left fasciotomy. PAD anemia thrombocytopenia HIV active smoker Choice of AC : on Lovenox now , ASA with either warfarin/NOACs would be the likely choice once ready to be discharge thrombocytopenia improving anemia:monitor closely. ?Etiology , ?post-op likely, for Labs. will follow
--- NOTE | 2017-07-13 14:15 | PN ---
Teaching Attending Note Name of Resident: Catalina Murray ATTENDING PHYSICIAN STATEMENT I saw and evaluated the patient. I reviewed the resident's note and discussed the case with the resident. I agree with the resident's findings and plan as documented. SUBJECTIVE: No fever or chills, has pain in L leg where incisions are OBJECTIVE: NAD Lungs : CTAB CV: RRR, no MRG Ext: L leg covered with a dressing that has minimal blood saturation laterally. wound was not examined today. has improved sensatio to light touch in L foot . DP 1+ in both sided. PT 1+ on R . can move more toes today on L . still has L foot drop ASSESSMENT AND PLAN: 57 y/o lady with h/o CAD, s/p stenting in 2014, HLP, HTN, and other medical problems who presented with b/l LE pain , and was found ot have acute ischemia of LEs, then developed compartment syndrome after reperfusion of L leg 1- Acute ischemia of LEs s/p SFA stent 07/09, with development of compartment syndrome of L leg s/p fascietomy 07/11 . Now sensation in L foot improved and motor function in toes improved - cont lovenox - will start eliquis close to dc after all possible procedures - increase dose of oxycodone - duration of AC for life - Monitor HB closely 2- Thrombocytopenia :likely consumptive , better plt count today . - HIT Abs pending - lovenox for now . 3- BRENDAN : resolved 4- h/o CAD , s/p stenting : - Aspirin ( ok to start per surgery) 5- DM : - cont levemir 30 . - cont SSI TX to floor
[2017-07-13] MEDS ORDERED: ESCITALOPRAM OXALATE 10 MG TABLET (FP) ONE (21:34)
[2017-07-13] MEDS: MONTELUKAST NA 10 MG TABLET PO SCH (22:13)
[2017-07-13] MEDS: MIRTAZAPINE 30 MG TABLET (FP) PO SCH (22:13)
[2017-07-13] MEDS: ATORVASTATIN CA 10 MG TABLET (FP) PO SCH (22:13)
[2017-07-13] MEDS: INSULIN DETEMIR 100 UNITS/ML MDV SQ SCH (22:14)
[2017-07-13] MEDS: ESCITALOPRAM OXALATE 20 MG TABLET (FP) PO SCH (22:14)
[2017-07-13] MEDS: PATIENT'S OWN MEDICATION (NON-FORMULARY) (Emtricitabine/Tenofov Alafenam [Descovy 200-25 M PO SCH (22:14)
[2017-07-14] MEDS: INSULIN SLIDING SCALE (NOVOLOG) 1 VIAL SQ SCH ×4 (06:31→21:19)
[2017-07-14] MEDS ORDERED: INSULIN DETEMIR 100 UNITS/ML MDV SQ ONE (06:51)
[2017-07-14 08:57] LABS: HEMATOCRIT 26.6 % (32.4-45.2); HEMOGLOBIN 8.5 GM/dL (10.7-15.3); MCH 26.6 pg (25.7-33.7); MEAN CELL VOLUME 83.1 fl (80-96); MEAN PLT VOLUME 8.9 fl (7.5-11.1); PLATELET COUNT 142 K/MM3 (134-434); RBC 3.21 M/mm3 (3.60-5.2); RDW 15.1 % (11.6-15.6); WHITE BLOOD COUNT 8.8 K/mm3 (4.0-10.0)
[2017-07-14] MEDS: ENOXAPARIN NA (PORCINE) 80 MG/0.8 ML DISP.SYRIN SQ SCH ×2 (09:36→21:19)
[2017-07-14] MEDS: ASPIRIN COATED 81 MG TABLET.EC PO SCH (09:36)
[2017-07-14] MEDS: PANTOPRAZOLE 20 MG TABLET (FP) PO SCH ×2 (09:36→21:17)
[2017-07-14] MEDS: GABAPENTIN 300 MG CAPSULE (FP) PO SCH ×2 (09:36→21:17)
[2017-07-14] MEDS: BUDESONIDE/FORMETEROL FUMARATE 160/4.5 mcg INHALER IH SCH ×2 (09:37→21:20)
[2017-07-14] MEDS: POLYETHYLENE GLYCOL 3350 119 GM BTL PO SCH ×2 (09:37→22:05)
[2017-07-14] MEDS: PATIENT'S OWN MEDICATION (NON-FORMULARY) (Dolutegravir Sodium 50 MG) PO SCH ×2 (09:37→21:19)
--- NOTE | 2017-07-14 09:59 | PN ---
Progress Note, Physician History of Present Illness: 56-year-old woman with a history of hypertension, hyperlipidemia, diabetes type II, HIV, asthma, H. pylori, COPD, smoker, coronary artery disease status post stent to [facility]AD April 2015 with drug-eluting stent, total knee replacement, recently admitted [facility] for LE pain found to have b/l SFA occlusion, underwent WORKDAY DIRECTOR LLE and is Dec WORKDAY DIRECTOR RLE admitted with b/l LE pain found to have b/ l occluded SFA. Underwent WORKDAY DIRECTOR LLE then fasciotomy LLE for possible compartment syndrome. Antiplatelet management- -from CAD/stent standpoint would need single antiplatelet (ASA or Plavix) retirement -ASA 81mg daily has been resumed -currently on Lovenox with plan to change to po AC after surgery PAD-b/l occluded SFA -no history of afib or aflutter, none seen on review of ekg/telemetry since admission -pt had recent WORKDAY DIRECTOR b/l SFA and was not taking her Plavix (only ASA) and continued to smoke -unclear if this is localized thrombosis with thrombus propagation or an embolic event -she has not had a documented AFib/aflutter episode as far as I have seen therefore I would favor a localized thrombotic event as the source especially in light of recent WORKDAY DIRECTOR for her PAD and non-adherence with Plavix and continued smoking -in either case full AC would be beneficial going forward to prevent future recurrence -plan for now to cont Lovenox until after surgery and then transition to po AC going forward with either coumadin or NOAC in addition to single antiplatelet therapy CAD-stent LAD 2014 -stable -nuclear stress test done in office 09/2016 showed no ischemia, normal LVEF -cont statin -antiplatelet as above -not on bblocker as outpatient due to COPD and smoking HTN-adequately controlled -monitor for now - Current Medication List Current Medications: Active Medications Acetaminophen (Tylenol -) 325 mg PO Q4H PRN PRN Reason: PAIN Last Admin: 07/13/17 22:20 Dose: 325 mg Aspirin (Ecotrin -) 81 mg PO DAILY [facility] Last Admin: 07/14/17 09:36 Dose: 81 mg Atorvastatin Calcium (Lipitor -) 10 mg PO HS [facility] Last Admin: 07/13/17 22:13 Dose: 10 mg Bisacodyl (Dulcolax -) 5 mg PO DAILY PRN PRN Reason: CONSTIPATION Budesonide/Formoterol Fumarate (Symbicort 160/4.5mcg -) 1 puff IH BID [facility] Last Admin: 07/14/17 09:37 Dose: 1 inh Enoxaparin Sodium (Lovenox -) 80 mg SQ BID [facility] Last Admin: 07/14/17 09:36 Dose: 80 mg Escitalopram Oxalate (Lexapro -) 20 mg PO [facility] Last Admin: 07/13/17 22:14 Dose: 20 mg Gabapentin (Neurontin -) 600 mg PO BID [facility] Last Admin: 07/14/17 09:36 Dose: 600 mg Insulin Aspart (Novolog Vial Sliding Scale -) 1 vial SQ [facility] PRN Reason: Protocol Last Admin: 07/14/17 06:31 Dose: Not Given Insulin Detemir (Levemir Vial) 30 units SQ [facility] Last Admin: 07/13/17 22:14 Dose: 30 units Loratadine (Claritin -) 10 mg PO DAILY PRN PRN Reason: allergies Mirtazapine (Remeron -) 30 mg PO [facility] Last Admin: 07/13/17 22:13 Dose: 30 mg Montelukast Sodium (Singulair -) 10 mg PO [facility] Last Admin: 07/13/17 22:13 Dose: 10 mg Non-Formulary Medication (Dolutegravir Sodium) 50 mg PO DAILY [facility] Last Admin: 07/14/17 09:37 Dose: Not Given Non-Formulary Medication (Emtricitabine/Tenofov Alafenam [Descovy 200-25 Mg Tablet (Nf)]) 1 each PO [facility] Last Admin: 07/13/17 22:14 Dose: 1 each Ondansetron HCl (Zofran Injection) 4 mg IVPUSH Q6H PRN PRN Reason: NAUSEA AND/OR VOMITING Oxycodone HCl (Roxicodone -) 10 mg PO Q4H PRN PRN Reason: PAIN LEVEL 6-10 Last Admin: 07/13/17 22:19 Dose: 10 mg Pantoprazole Sodium (Protonix -) 20 mg PO BID [facility] Last Admin: 07/14/17 09:36 Dose: 20 mg Polyethylene Glycol (Miralax (For Daily Use) -) 17 gm PO BID [facility] Last Admin: 07/14/17 09:37 Dose: Not Given Promethazine HCl (Phenergan Injection -) 12.5 mg IVPUSH Q6H PRN PRN Reason: NAUSEA-FOR RESCUE AFTER 15 MIN Zolpidem Tartrate (Ambien -) 5 mg PO HS PRN - Objective Vital Signs: Vital Signs Temperature 99.3 F 07/14/17 06:00 Pulse Rate 94 H 07/14/17 06:00 Respiratory Rate 20 07/14/17 06:00 Blood Pressure 147/64 07/14/17 06:00 O2 Sat by Pulse Oximetry (%) 96 07/13/17 21:00 Eyes: Yes: WNL, Conjunctiva Clear, EOM Intact HENT: Yes: WNL, Atraumatic, Normocephalic Neck: Yes: WNL, Supple, Trachea Midline Cardiovascular: Yes: WNL, Regular Rate and Rhythm Respiratory: Yes: WNL, Regular, CTA Bilaterally Gastrointestinal: Yes: WNL, Normal Bowel Sounds Genitourinary: Yes: WNL Musculoskeletal: Yes: WNL Edema: Yes Integumentary: Yes: WNL Neurological: Yes: WNL, Alert, Oriented ...Motor Strength: WNL Psychiatric: Yes: WNL Labs: CBC, BMP 07/14/17 07:00 07/12/17 05:15 INR, PTT INR 1.12 (0.82-1.09) 07/12/17 05:15 Fibrinogen 342.0 mg/dL (238-498) D 07/11/17 10:15 Assessment/Plan 56-year-old woman with a history of hypertension, hyperlipidemia, diabetes type II, HIV, asthma, H. pylori, COPD, smoker, coronary artery disease status post stent to [facility] April 2015 with drug-eluting stent, total knee replacement, recently admitted [facility] for LE pain found to have b/l SFA occlusion, underwent WORKDAY DIRECTOR LLE and is Dec WORKDAY DIRECTOR RLE admitted with b/l LE pain found to have b/ l occluded SFA. Underwent WORKDAY DIRECTOR LLE then fasciotomy LLE for possible compartment syndrome. Antiplatelet management- -from CAD/stent standpoint would need single antiplatelet (ASA or Plavix) retirement -ASA 81mg daily has been resumed -currently on Lovenox with plan to change to po AC after surgery PAD-b/l occluded SFA -no history of afib or aflutter, none seen on review of ekg/telemetry since admission -pt had recent WORKDAY DIRECTOR b/l SFA and was not taking her Plavix (only ASA) and continued to smoke -unclear if this is localized thrombosis with thrombus propagation or an embolic event -she has not had a documented AFib/aflutter episode as far as I have seen therefore I would favor a localized thrombotic event as the source especially in light of recent WORKDAY DIRECTOR for her PAD and non-adherence with Plavix and continued smoking -in either case full AC would be beneficial going forward to prevent future recurrence -plan for now to cont Lovenox until after surgery and then transition to po AC going forward with either coumadin or NOAC in addition to single antiplatelet therapy CAD-stent LAD 2014 -stable -nuclear stress test done in office 09/2016 showed no ischemia, normal LVEF -cont statin -antiplatelet as above -not on bblocker as outpatient due to COPD and smoking HTN-adequately controlled -monitor for now
[2017-07-14] MEDS: ACETAMINOPHEN 325 MG TABLET (FP) PO PRN ×3 (10:00→21:18)
[2017-07-14] MEDS: oxyCODONE HCL 5 MG TABLET PO PRN ×3 (10:00→21:17)
--- NOTE | 2017-07-14 10:09 | PN ---
Physical Exam: SUBJECTIVE: Patient seen and examined. No fever or chills. Large BM yesterday. Pain well controlled. Walked with rolling walker short distance today. Stated felt R foot was painful last night, but improved after receiving Gabapentin. R calf pain improving. OBJECTIVE: Vital Signs Period Temp Pulse Resp BP Sys/Cota Pulse Ox Last 24 Hr 98.7 F-99.4 F 94-99 18-20 123-147/64-83 96 GENERAL: nad, lying comfortably in bed, aaox3 EYES: sclera anicteric, conjunctiva clear ENT: oropharynx clear without exudates, MMM LUNGS: CTAB HEART: rrr, normal s1/s2, no m/r/g ABDOMEN: Soft, ntnd, normoactive BS LOWER EXTREMITIES: DP and PT palpable bilaterally, L calf s/p fasciotomy, lateral incision with some black tissue at edges, otherwise weal healing, both feet warm with sensation intact, Left foot drop, but can move toes CBC, BMP 07/14/17 07:00 Active Medications Acetaminophen (Tylenol -) 325 mg PO Q4H PRN PRN Reason: PAIN Last Admin: 07/14/17 10:00 Dose: 325 mg Aspirin (Ecotrin -) 81 mg PO DAILY [facility] Last Admin: 07/14/17 09:36 Dose: 81 mg Atorvastatin Calcium (Lipitor -) 10 mg PO HS [facility] Last Admin: 07/13/17 22:13 Dose: 10 mg Bisacodyl (Dulcolax -) 5 mg PO DAILY PRN PRN Reason: CONSTIPATION Budesonide/Formoterol Fumarate (Symbicort 160/4.5mcg -) 1 puff IH BID [facility] Last Admin: 07/14/17 09:37 Dose: 1 inh Enoxaparin Sodium (Lovenox -) 80 mg SQ BID [facility] Last Admin: 07/14/17 09:36 Dose: 80 mg Escitalopram Oxalate (Lexapro -) 20 mg PO HS [facility] Last Admin: 07/13/17 22:14 Dose: 20 mg Gabapentin (Neurontin -) 600 mg PO BID [facility] Last Admin: 07/14/17 09:36 Dose: 600 mg Insulin Aspart (Novolog Vial Sliding Scale -) 1 vial SQ [facility] PRN Reason: Protocol Last Admin: 07/14/17 12:03 Dose: Not Given Insulin Detemir (Levemir Vial) 30 units SQ [facility] Last Admin: 07/13/17 22:14 Dose: 30 units Loratadine (Claritin -) 10 mg PO DAILY PRN PRN Reason: allergies Mirtazapine (Remeron -) 30 mg PO [facility] Last Admin: 07/13/17 22:13 Dose: 30 mg Montelukast Sodium (Singulair -) 10 mg PO [facility] Last Admin: 07/13/17 22:13 Dose: 10 mg Non-Formulary Medication (Dolutegravir Sodium) 50 mg PO DAILY [facility] Last Admin: 07/14/17 09:37 Dose: Not Given Non-Formulary Medication (Emtricitabine/Tenofov Alafenam [Descovy 200-25 Mg Tablet (Nf)]) 1 each PO [facility] Last Admin: 07/13/17 22:14 Dose: 1 each Ondansetron HCl (Zofran Injection) 4 mg IVPUSH Q6H PRN PRN Reason: NAUSEA AND/OR VOMITING Oxycodone HCl (Roxicodone -) 10 mg PO Q4H PRN PRN Reason: PAIN LEVEL 6-10 Last Admin: 07/14/17 10:00 Dose: 10 mg Pantoprazole Sodium (Protonix -) 20 mg PO BID [facility] Last Admin: 07/14/17 09:36 Dose: 20 mg Polyethylene Glycol (Miralax (For Daily Use) -) 17 gm PO BID [facility] Last Admin: 07/14/17 09:37 Dose: Not Given Promethazine HCl (Phenergan Injection -) 12.5 mg IVPUSH Q6H PRN PRN Reason: NAUSEA-FOR RESCUE AFTER 15 MIN Zolpidem Tartrate (Ambien -) 5 mg PO HS PRN ASSESSMENT/PLAN: 57yo woman with PMH HIV (CD4 725, VL 180 on 07/04; on HAART), DM2, HTN, CAD (s/p cardiac stent 04/15), BL SFA stents (04/17, 05/18), who p/w BL LE pain, swelling and inability to ambulate for several days prior to admission, and found to have b/l occlusions of LE in the setting of medication non-compliance ( Plavix). #L limb ischemia, POD3 s/p LLE fasciotomy for compartment syndrome s/p LLE angiogram; SFA, popliteal, tibial angioplasty; SFA stent placement w/ TPA infusion -Dr. Guzmán. will discuss w/ vascular RE fasciotomy closure and assessment of healing. -c/w Lovenox 80mg BID -c/w Gwen 10mg Q4H + Acetaminophen 325mg Q4H -pulse checks q4h #thrombocytopenia, resolved, JEFFERY Ab negative, likely 2/2 consumption #BRENDAN, resolved -Avoid nephrotoxic agents #DM2 - A1C 13.3 on 07/04 - BGM & ISS q4h #HTN - hold home meds for now #HIV - CV4 809, VL 80 on 07/04; on HAART - C/W Tivicay and Descovy - f/u as outpt for further management w/ PCP #CAD (s/p cardiac stent) -Cardiology consulted (Dr. Fritz). Will continue with ASA 81 daily #HLD - Triglycerides 1264, Cholesterol 278 on 07/04 -lipitor 10mg HS #PPX -DVT - lovenox -GI - c/w home ppi #FEN: PO hydration / lytes wnl / DM, Na controlled diet #DISPO: M/S FULL code d/w Dr. Steph Murray MD PGY1 - Internal Medicine Visit type - Emergency Visit Emergency Visit: No - New Patient This patient is new to me today: No - Critical Care Critical Care patient: No
[2017-07-14 10:12] LABS: DRVVT - 47.6 sec (0.0-47.0); HEXAGONAL PHASE PHOSPHOLIPID 2 sec (0-11); dRVVT MIX 43.3 sec (0.0-47.0)
--- NOTE | 2017-07-14 15:17 | PN ---
Teaching Attending Note Name of Resident: Catalina Murray ATTENDING PHYSICIAN STATEMENT I saw and evaluated the patient. I reviewed the resident's note and discussed the case with the resident. I agree with the resident's findings and plan as documented. SUBJECTIVE: no fever or chills, pain is controlled with oxycodone. has no SOB . OBJECTIVE: NAD Lungs : CTAB CV: RRR, no MRG Ext: L leg with longitudinal wounds with some black discoloration of lateral wound ( litle on lower edge) . . has improved sensation to light touch in L foot . DP 1+ in L , not felt on R , . PT 1+ on R . can move more toes today on L . still has L foot drop ASSESSMENT AND PLAN: 57 y/o lady with h/o CAD, s/p stenting in 2014, HLP, HTN, and other medical problems who presented with b/l LE pain , and was found ot have acute ischemia of LEs, then developed compartment syndrome after reperfusion of L leg 1- Acute ischemia of LEs s/p SFA stent 07/09, with development of compartment syndrome of L leg s/p fascietomy 07/11 . Now sensation in L foot improved and motor function in toes improved - cont lovenox - will ask surgery to evaluate wound again - will start eliquis close to dc after all possible procedures - increase dose of oxycodone - Duration of AC for life - Monitor HB closely 2- Thrombocytopenia :resolved - HIT Abs neg 3- BRENDAN : resolved 4- h/o CAD , s/p stenting : - Aspirin 5- DM : - cont levemir 30 . - cont SSI HLOC
[2017-07-14] MEDS ORDERED: ESCITALOPRAM OXALATE 10 MG TABLET (FP) ONE (21:06)
[2017-07-14] MEDS ORDERED: INSULIN (NOVOLOG) ASPART 100 UNITS/ML 10ML VIAL ONE (21:08)
[2017-07-14] MEDS: MIRTAZAPINE 30 MG TABLET (FP) PO SCH (21:17)
[2017-07-14] MEDS: ATORVASTATIN CA 10 MG TABLET (FP) PO SCH (21:17)
[2017-07-14] MEDS: MONTELUKAST NA 10 MG TABLET PO SCH (21:17)
[2017-07-14] MEDS: PATIENT'S OWN MEDICATION (NON-FORMULARY) (Emtricitabine/Tenofov Alafenam [Descovy 200-25 M PO SCH (21:19)
[2017-07-14] MEDS: INSULIN DETEMIR 100 UNITS/ML MDV SQ SCH (21:19)
[2017-07-14] MEDS: ESCITALOPRAM OXALATE 20 MG TABLET (FP) PO SCH (21:19)
[2017-07-15 06:36] LABS: SERUM IRON SATURATION 9 % (15-55); TOTAL IRON BINDING CAPACITY 215 ug/dL (250-450); UIBC 196 ug/dL (131-425)
[2017-07-15] MEDS: oxyCODONE HCL 5 MG TABLET PO PRN ×3 (06:43→21:21)
[2017-07-15] MEDS: INSULIN SLIDING SCALE (NOVOLOG) 1 VIAL SQ SCH ×4 (06:43→21:23)
[2017-07-15] MEDS: ACETAMINOPHEN 325 MG TABLET (FP) PO PRN ×2 (06:44→21:21)
--- NOTE | 2017-07-15 08:46 | PN ---
Progress Note, Physician History of Present Illness: 56-year-old woman with a history of hypertension, hyperlipidemia, diabetes type II, HIV, asthma, H. pylori, COPD, smoker, coronary artery disease status post stent to [facility] April 2015 with drug-eluting stent, total knee replacement, recently admitted [facility] for LE pain found to have b/l SFA occlusion, underwent ELECTRONIC LAB TECHNICIAN LLE and is Dec ELECTRONIC LAB TECHNICIAN RLE admitted with b/l LE pain found to have b/ l occluded SFA. Underwent ELECTRONIC LAB TECHNICIAN LLE then fasciotomy LLE for possible compartment syndrome. Antiplatelet management- -from CAD/stent standpoint would need single antiplatelet (ASA or Plavix) halfway -ASA 81mg daily has been resumed -currently on Lovenox with plan to change to po AC after surgery PAD-b/l occluded SFA -no history of afib or aflutter, none seen on review of ekg/telemetry since admission -pt had recent ELECTRONIC LAB TECHNICIAN b/l SFA and was not taking her Plavix (only ASA) and continued to smoke -unclear if this is localized thrombosis with thrombus propagation or an embolic event -she has not had a documented AFib/aflutter episode as far as I have seen therefore I would favor a localized thrombotic event as the source especially in light of recent ELECTRONIC LAB TECHNICIAN for her PAD and non-adherence with Plavix and continued smoking -in either case full AC would be beneficial going forward to prevent future recurrence -plan for now to cont Lovenox until after surgery and then transition to po AC going forward with either coumadin or NOAC in addition to single antiplatelet therapy CAD-stent LAD 2014 -stable -nuclear stress test done in office 09/2016 showed no ischemia, normal LVEF -cont statin -antiplatelet as above -not on bblocker as outpatient due to COPD and smoking HTN-adequately controlled -monitor for now - Current Medication List Current Medications: Active Medications Acetaminophen (Tylenol -) 325 mg PO Q4H PRN PRN Reason: PAIN Last Admin: 07/15/17 06:44 Dose: 325 mg Aspirin (Ecotrin -) 81 mg PO DAILY [facility] Last Admin: 07/14/17 09:36 Dose: 81 mg Atorvastatin Calcium (Lipitor -) 10 mg PO HS [facility] Last Admin: 07/14/17 21:17 Dose: 10 mg Bisacodyl (Dulcolax -) 5 mg PO DAILY PRN PRN Reason: CONSTIPATION Last Admin: 07/14/17 15:23 Dose: 5 mg Budesonide/Formoterol Fumarate (Symbicort 160/4.5mcg -) 1 puff IH BID [facility] Last Admin: 07/14/17 21:20 Dose: 1 inh Enoxaparin Sodium (Lovenox -) 80 mg SQ BID [facility] Last Admin: 07/14/17 21:19 Dose: 80 mg Escitalopram Oxalate (Lexapro -) 20 mg PO [facility] Last Admin: 07/14/17 21:19 Dose: 20 mg Gabapentin (Neurontin -) 600 mg PO BID [facility] Last Admin: 07/14/17 21:17 Dose: 600 mg Insulin Aspart (Novolog Vial Sliding Scale -) 1 vial SQ [facility] PRN Reason: Protocol Last Admin: 07/15/17 06:43 Dose: Not Given Insulin Detemir (Levemir Vial) 30 units SQ [facility] Last Admin: 07/14/17 21:19 Dose: 30 units Loratadine (Claritin -) 10 mg PO DAILY PRN PRN Reason: allergies Mirtazapine (Remeron -) 30 mg PO [facility] Last Admin: 07/14/17 21:17 Dose: 30 mg Montelukast Sodium (Singulair -) 10 mg PO [facility] Last Admin: 07/14/17 21:17 Dose: 10 mg Non-Formulary Medication (Emtricitabine/Tenofov Alafenam [Descovy 200-25 Mg Tablet (Nf)]) 1 each PO [facility] Last Admin: 07/14/17 21:19 Dose: 1 each Non-Formulary Medication (Dolutegravir Sodium) 50 mg PO [facility] Last Admin: 07/14/17 21:19 Dose: 50 mg Ondansetron HCl (Zofran Injection) 4 mg IVPUSH Q6H PRN PRN Reason: NAUSEA AND/OR VOMITING Oxycodone HCl (Roxicodone -) 10 mg PO Q4H PRN PRN Reason: PAIN LEVEL 6-10 Last Admin: 07/15/17 06:43 Dose: 10 mg Pantoprazole Sodium (Protonix -) 20 mg PO BID [facility] Last Admin: 07/14/17 21:17 Dose: 20 mg Polyethylene Glycol (Miralax (For Daily Use) -) 17 gm PO BID [facility] Last Admin: 07/14/17 22:05 Dose: Not Given Promethazine HCl (Phenergan Injection -) 12.5 mg IVPUSH Q6H PRN PRN Reason: NAUSEA-FOR RESCUE AFTER 15 MIN Zolpidem Tartrate (Ambien -) 5 mg PO HS PRN - Objective Vital Signs: Vital Signs Temperature 99.4 F 07/15/17 06:00 Pulse Rate 86 07/15/17 06:00 Respiratory Rate 20 07/15/17 06:00 Blood Pressure 127/72 07/15/17 06:00 O2 Sat by Pulse Oximetry (%) 94 L 07/14/17 21:00 Eyes: Yes: WNL, Conjunctiva Clear, EOM Intact HENT: Yes: WNL, Atraumatic, Normocephalic Neck: Yes: WNL, Supple, Trachea Midline Cardiovascular: Yes: WNL, Regular Rate and Rhythm Respiratory: Yes: WNL, Regular, CTA Bilaterally Gastrointestinal: Yes: WNL, Normal Bowel Sounds Genitourinary: Yes: WNL Musculoskeletal: Yes: WNL Extremities: Yes: WNL Edema: No Integumentary: Yes: WNL Neurological: Yes: WNL, Alert, Oriented ...Motor Strength: WNL Psychiatric: Yes: WNL Labs: CBC, BMP 07/12/17 05:15 INR, PTT INR 1.12 (0.82-1.09) 07/12/17 05:15 Fibrinogen 342.0 mg/dL (238-498) D 07/11/17 10:15 Assessment/Plan 56-year-old woman with a history of hypertension, hyperlipidemia, diabetes type II, HIV, asthma, H. pylori, COPD, smoker, coronary artery disease status post stent to [facility] April 2015 with drug-eluting stent, total knee replacement, recently admitted Nov [facility] for LE pain found to have b/l SFA occlusion, underwent ELECTRONIC LAB TECHNICIAN LLE and is Dec ELECTRONIC LAB TECHNICIAN RLE admitted with b/l LE pain found to have b/ l occluded SFA. Underwent ELECTRONIC LAB TECHNICIAN LLE then fasciotomy LLE for possible compartment syndrome. Antiplatelet management- -from CAD/stent standpoint would need single antiplatelet (ASA or Plavix) halfway -ASA 81mg daily has been resumed -currently on Lovenox with plan to change to po AC after surgery PAD-b/l occluded SFA -no history of afib or aflutter, none seen on review of ekg/telemetry since admission -pt had recent ELECTRONIC LAB TECHNICIAN b/l SFA and was not taking her Plavix (only ASA) and continued to smoke -unclear if this is localized thrombosis with thrombus propagation or an embolic event -she has not had a documented AFib/aflutter episode as far as I have seen therefore I would favor a localized thrombotic event as the source especially in light of recent ELECTRONIC LAB TECHNICIAN for her PAD and non-adherence with Plavix and continued smoking -in either case full AC would be beneficial going forward to prevent future recurrence -plan for now to cont Lovenox until after surgery and then transition to po AC going forward with either coumadin or NOAC in addition to single antiplatelet therapy CAD-stent LAD 2014 -stable -nuclear stress test done in office 09/2016 showed no ischemia, normal LVEF -cont statin -antiplatelet as above -not on bblocker as outpatient due to COPD and smoking HTN-adequately controlled -monitor for now
[2017-07-15 09:08] LABS: HEMATOCRIT 29.9 % (32.4-45.2); HEMOGLOBIN 9.4 GM/dL (10.7-15.3); MCH 26.3 pg (25.7-33.7); MCHC 31.6 g/dl (32.0-36.0); MEAN CELL VOLUME 83.3 fl (80-96); PLATELET COUNT 193 K/MM3 (134-434); RBC 3.58 M/mm3 (3.60-5.2); RDW 14.9 % (11.6-15.6); WHITE BLOOD COUNT 8.2 K/mm3 (4.0-10.0)
[2017-07-15] MEDS ORDERED: PT OWN MED DRAWER 7, Y5N ONE ×2 (09:32→21:14)
[2017-07-15] MEDS: GABAPENTIN 300 MG CAPSULE (FP) PO SCH ×2 (09:34→21:21)
[2017-07-15] MEDS: POLYETHYLENE GLYCOL 3350 119 GM BTL PO SCH ×2 (09:34→21:27)
[2017-07-15] MEDS: BUDESONIDE/FORMETEROL FUMARATE 160/4.5 mcg INHALER IH SCH ×2 (09:34→21:25)
[2017-07-15] MEDS: PANTOPRAZOLE 20 MG TABLET (FP) PO SCH ×2 (09:34→21:21)
[2017-07-15] MEDS: ASPIRIN COATED 81 MG TABLET.EC PO SCH (09:34)
[2017-07-15] MEDS: ENOXAPARIN NA (PORCINE) 80 MG/0.8 ML DISP.SYRIN SQ SCH ×2 (09:34→21:22)
--- NOTE | 2017-07-15 12:47 | PN ---
Progress Note (short form) - Note Progress Note: Progress Note: pt seen and examined. feels about the same has pulses and her feet are warm on enoxaparin legs bandaged well small seroius discharge Vital Signs Period Temp Pulse Resp BP Sys/Cota Pulse Ox Last 24 Hr 98.3 F-99.4 F 82-94 18-20 100-132/50-76 94 Active Medications Generic Name Dose Route Start Last Admin Trade Name Freq PRN Reason Stop Dose Admin Acetaminophen 325 mg 07/13/17 12:15 07/15/17 06:44 Tylenol - PO 325 mg Q4H PRN Administration PAIN Aspirin 81 mg 07/13/17 10:00 07/15/17 09:34 Ecotrin - PO 81 mg DAILY JENN[facility]ER Administration Atorvastatin Calcium 10 mg 07/12/17 22:00 07/14/17 21:17 Lipitor - PO 10 mg HS [facility]ENN[facility]ER Administration Bisacodyl 5 mg 07/13/17 12:17 07/14/17 15:23 Dulcolax - PO 5 mg DAILY PRN Administration CONSTIPATION Budesonide/Formoterol Fumarate 1 puff 07/12/17 22:00 07/15/17 09:34 Symbicort 160/4.5mcg - IH 1 inh BID [facility]ENN[facility]ER Administration Enoxaparin Sodium 80 mg 07/12/17 22:00 07/15/17 09:34 Lovenox - SQ 80 mg BID [facility] Administration Escitalopram Oxalate 20 mg 07/12/17 22:00 07/14/17 21:19 Lexapro - PO 20 mg HS [facility]ENN[facility]ER Administration Gabapentin 600 mg 07/12/17 22:00 07/15/17 09:34 Neurontin - PO 600 mg BID [facility] Administration Insulin Aspart 1 vial 07/12/17 16:30 07/15/17 11:47 Novolog Vial Sliding Scale - SQ Not Given ACHS JENNIFER Protocol Insulin Detemir 30 units 07/12/17 22:00 07/14/17 21:19 Levemir Vial SQ 30 units HS [facility]ENN[facility]ER Administration Loratadine 10 mg 07/12/17 14:13 Claritin - PO DAILY PRN allergies Mirtazapine 30 mg 07/12/17 22:00 07/14/17 21:17 Remeron - PO 30 mg HS [facility] Administration Montelukast Sodium 10 mg 07/12/17 22:00 07/14/17 21:17 Singulair - PO 10 mg HS [facility] Administration Non-Formulary Medication 1 each 07/12/17 22:00 07/14/17 21:19 Emtricitabine/Tenofov Alafenam [Descovy 200-25 Mg Tablet (Nf)] PO 1 each HS [facility]ER Administration Non-Formulary Medication 50 mg 07/14/17 22:00 07/14/17 21:19 Dolutegravir Sodium PO 50 mg HS [facility]ENN[facility] Administration Ondansetron HCl 4 mg 07/12/17 14:13 Zofran Injection IVPUSH Q6H PRN NAUSEA AND/OR VOMITING Oxycodone HCl 10 mg 07/13/17 11:56 07/15/17 06:43 Roxicodone - PO 10 mg Q4H PRN Administration PAIN LEVEL 6-10 Pantoprazole Sodium 20 mg 07/12/17 22:00 07/15/17 09:34 Protonix - PO 20 mg BID [facility]ENN[facility]ER Administration Polyethylene Glycol 17 gm 07/13/17 12:30 07/15/17 09:34 Miralax (For Daily Use) - PO Not Given BID EJNNIFER Promethazine HCl 12.5 mg 07/12/17 14:13 Phenergan Injection - IVPUSH Q6H PRN NAUSEA-FOR RESCUE AFTER 15 MIN Zolpidem Tartrate 5 mg 07/12/17 22:00 Ambien - PO HS PRN CBC, BMP 07/15/17 07:30 07/12/17 05:15 LLE arterial Thrombi compartment syndrome s/p left fasciotomy. PAD anemia thrombocytopenia HIV active smoker Choice of AC : on Lovenox now , ASA with either warfarin/NOACs would be the likely choice once ready to be discharge thrombocytopenia improved anemia - improved.
--- NOTE | 2017-07-15 16:14 | PN ---
Progress Note (short form) - Note Progress Note: Subjective: pain is well controlled. no fever or chills. Objective: Vital Signs: Last Vital Signs Temp Pulse Resp BP Pulse Ox 99.2 F 84 22 130/56 94 L 07/15/17 15:59 07/15/17 15:59 07/15/17 15:59 07/15/17 15:59 07/14/17 21:00 Laboratory Results - last 24 hr 07/14/17 07/14/17 07/14/17 07:00 16:59 21:15 WBC RBC Hgb Hct MCV MCH MCHC RDW Plt Count MPV PTT (Actin FS) POC Glucometer 175 182 Iron 19 L TIBC 215 L Iron Saturation 9 L Blood Type Antibody Screen 07/15/17 07/15/17 07/15/17 06:42 07:30 07:30 WBC 8.2 RBC 3.58 L Hgb 9.4 L D Hct 29.9 L MCV 83.3 MCH 26.3 MCHC 31.6 L RDW 14.9 Plt Count 193 D MPV 9.0 PTT (Actin FS) 29.0 POC Glucometer 99 Iron TIBC Iron Saturation Blood Type Antibody Screen 07/15/17 07/15/17 07:30 11:46 WBC RBC Hgb Hct MCV MCH MCHC RDW Plt Count MPV PTT (Actin FS) POC Glucometer 140 Iron TIBC Iron Saturation Blood Type B POSITIVE Antibody Screen Negative Physical Exam: NAD Lungs : CTAB CV: RRR, no MRG Ext: L leg with longitudinal wounds with some black discoloration of lateral wound ( litle on lower edge) . . has improved sensation to light touch in L foot . DP 1+ in L , not felt on R , . PT 1+ on R . can move more toes today on L . still has L foot drop ASSESSMENT AND PLAN: 57 y/o lady with h/o CAD, s/p stenting in 2014, HLP, HTN, and other medical problems who presented with b/l LE pain , and was found ot have acute ischemia of LEs, then developed compartment syndrome after reperfusion of L leg 1- Acute ischemia of LEs s/p SFA stent 07/09, with development of compartment syndrome of L leg s/p fascietomy 07/11 . - cont lovenox - will ask surgery to evaluate wound again - will start eliquis close to dc after all possible procedures -cont oxycodone - Duration of AC for life - Monitor HB closely 2- Thrombocytopenia: resolved - HIT Abs neg 3- BRENDAN : resolved 4- H/o CAD, s/p stenting : - Aspirin 5- DM : - cont levemir 30 . - cont SSI HLOC Visit type - Emergency Visit Emergency Visit: Yes ED Registration Date: 07/09/17 Care time: The patient presented to the Emergency Department on the above date and was hospitalized for further evaluation of their emergent condition. - New Patient This patient is new to me today: No - Critical Care Critical Care patient: No
[2017-07-15] MEDS ORDERED: ESCITALOPRAM OXALATE 10 MG TABLET (FP) ONE (21:13)
[2017-07-15] MEDS: INSULIN DETEMIR 100 UNITS/ML MDV SQ SCH (21:20)
[2017-07-15] MEDS: ATORVASTATIN CA 10 MG TABLET (FP) PO SCH (21:21)
[2017-07-15] MEDS: MIRTAZAPINE 30 MG TABLET (FP) PO SCH (21:21)
[2017-07-15] MEDS: ESCITALOPRAM OXALATE 20 MG TABLET (FP) PO SCH (21:21)
[2017-07-15] MEDS: MONTELUKAST NA 10 MG TABLET PO SCH (21:21)
[2017-07-15] MEDS: PATIENT'S OWN MEDICATION (NON-FORMULARY) (Dolutegravir Sodium 50 MG) PO SCH (21:22)
[2017-07-15] MEDS: PATIENT'S OWN MEDICATION (NON-FORMULARY) (Emtricitabine/Tenofov Alafenam [Descovy 200-25 M PO SCH (21:22)
[2017-07-16] MEDS: oxyCODONE HCL 5 MG TABLET PO PRN ×3 (06:27→21:33)
[2017-07-16] MEDS: ACETAMINOPHEN 325 MG TABLET (FP) PO PRN ×3 (06:28→21:33)
[2017-07-16] MEDS: INSULIN SLIDING SCALE (NOVOLOG) 1 VIAL SQ SCH ×4 (06:31→21:41)
--- NOTE | 2017-07-16 09:15 | PN ---
Progress Note, Physician - Current Medication List Current Medications: Active Medications Acetaminophen (Tylenol -) 325 mg PO Q4H PRN PRN Reason: PAIN Last Admin: 07/16/17 06:28 Dose: 325 mg Aspirin (Ecotrin -) 81 mg PO DAILY [facility] Last Admin: 07/15/17 09:34 Dose: 81 mg Atorvastatin Calcium (Lipitor -) 10 mg PO [facility] Last Admin: 07/15/17 21:21 Dose: 10 mg Bisacodyl (Dulcolax -) 5 mg PO DAILY PRN PRN Reason: CONSTIPATION Last Admin: 07/14/17 15:23 Dose: 5 mg Budesonide/Formoterol Fumarate (Symbicort 160/4.5mcg -) 1 puff IH BID [facility] Last Admin: 07/15/17 21:25 Dose: 1 inh Enoxaparin Sodium (Lovenox -) 80 mg SQ BID [facility] Last Admin: 07/15/17 21:22 Dose: 80 mg Escitalopram Oxalate (Lexapro -) 20 mg PO [facility] Last Admin: 07/15/17 21:21 Dose: 20 mg Gabapentin (Neurontin -) 600 mg PO BID [facility] Last Admin: 07/15/17 21:21 Dose: 600 mg Insulin Aspart (Novolog Vial Sliding Scale -) 1 vial SQ [facility] PRN Reason: Protocol Last Admin: 07/16/17 06:31 Dose: Not Given Insulin Detemir (Levemir Vial) 30 units SQ [facility] Last Admin: 07/15/17 21:20 Dose: 30 units Loratadine (Claritin -) 10 mg PO DAILY PRN PRN Reason: allergies Mirtazapine (Remeron -) 30 mg PO [facility] Last Admin: 07/15/17 21:21 Dose: 30 mg Montelukast Sodium (Singulair -) 10 mg PO [facility] Last Admin: 07/15/17 21:21 Dose: 10 mg Non-Formulary Medication (Emtricitabine/Tenofov Alafenam [Descovy 200-25 Mg Tablet (Nf)]) 1 each PO [facility] Last Admin: 07/15/17 21:22 Dose: 1 each Non-Formulary Medication (Dolutegravir Sodium) 50 mg PO [facility] Last Admin: 07/15/17 21:22 Dose: 50 mg Ondansetron HCl (Zofran Injection) 4 mg IVPUSH Q6H PRN PRN Reason: NAUSEA AND/OR VOMITING Oxycodone HCl (Roxicodone -) 10 mg PO Q4H PRN PRN Reason: PAIN LEVEL 6-10 Last Admin: 07/16/17 06:27 Dose: 10 mg Pantoprazole Sodium (Protonix -) 20 mg PO BID [facility] Last Admin: 07/15/17 21:21 Dose: 20 mg Polyethylene Glycol (Miralax (For Daily Use) -) 17 gm PO BID [facility] Last Admin: 07/15/17 21:27 Dose: Not Given Promethazine HCl (Phenergan Injection -) 12.5 mg IVPUSH Q6H PRN PRN Reason: NAUSEA-FOR RESCUE AFTER 15 MIN - Objective Vital Signs: Vital Signs Temperature 98.7 F 07/16/17 05:30 Pulse Rate 76 07/16/17 05:30 Respiratory Rate 20 07/16/17 05:30 Blood Pressure 120/62 07/16/17 05:30 O2 Sat by Pulse Oximetry (%) 94 L 07/14/17 21:00 Labs: CBC, BMP 07/12/17 05:15 INR, PTT INR 1.12 (0.82-1.09) 07/12/17 05:15 Fibrinogen 342.0 mg/dL (238-498) D 07/11/17 10:15 Assessment/Plan 56-year-old woman with a history of hypertension, hyperlipidemia, diabetes type II, HIV, asthma, H. pylori, COPD, smoker, coronary artery disease status post stent to [facility] April 2015 with drug-eluting stent, total knee replacement, recently admitted [facility] for LE pain found to have b/l SFA occlusion, underwent STONE UNLOADER LLE and is Dec STONE UNLOADER RLE admitted with b/l LE pain found to have b/ l occluded SFA. Underwent STONE UNLOADER LLE then fasciotomy LLE for possible compartment syndrome. Antiplatelet management- -cont ASA 81mg daily -currently on Lovenox with plan to change to po AC after surgery, likely Eliquis PAD-b/l occluded SFA -no history of afib or aflutter, none seen on review of ekg/telemetry since admission -pt had recent STONE UNLOADER b/l SFA and was not taking her Plavix (only ASA) and continued to smoke -unclear if this is localized thrombosis with thrombus propagation or an embolic event -she has not had a documented AFib/aflutter episode as far as I have seen therefore I would favor a localized thrombotic event as the source especially in light of recent STONE UNLOADER for her PAD and non-adherence with Plavix and continued smoking -in either case full AC would be beneficial going forward to prevent future recurrence -AC plan as above CAD-stent LAD 2014 -stable -nuclear stress test done in office 09/2016 showed no ischemia, normal LVEF -cont statin -antiplatelet as above -not on bblocker as outpatient due to COPD and smoking HTN-adequately controlled -monitor for now
[2017-07-16 09:17] LABS: HEMATOCRIT 30.8 % (32.4-45.2); HEMOGLOBIN 9.5 GM/dL (10.7-15.3); MCH 25.8 pg (25.7-33.7); MCHC 30.8 g/dl (32.0-36.0); MEAN CELL VOLUME 83.6 fl (80-96); MEAN PLT VOLUME 8.6 fl (7.5-11.1); PLATELET COUNT 230 K/MM3 (134-434); RBC 3.68 M/mm3 (3.60-5.2); RDW 15.1 % (11.6-15.6); WHITE BLOOD COUNT 7.8 K/mm3 (4.0-10.0)
[2017-07-16] MEDS: ASPIRIN COATED 81 MG TABLET.EC PO SCH (09:45)
[2017-07-16] MEDS: PANTOPRAZOLE 20 MG TABLET (FP) PO SCH ×2 (09:45→21:33)
[2017-07-16] MEDS: GABAPENTIN 300 MG CAPSULE (FP) PO SCH ×2 (09:45→21:33)
[2017-07-16] MEDS: ENOXAPARIN NA (PORCINE) 80 MG/0.8 ML DISP.SYRIN SQ SCH ×2 (09:46→21:34)
[2017-07-16] MEDS: BUDESONIDE/FORMETEROL FUMARATE 160/4.5 mcg INHALER IH SCH ×2 (09:47→22:10)
[2017-07-16] MEDS: POLYETHYLENE GLYCOL 3350 119 GM BTL PO SCH ×2 (09:47→22:10)
--- NOTE | 2017-07-16 12:10 | PN ---
Progress Note (short form) - Note Progress Note: Patient seen and examined History of B/L SFA occlusion with QUALITY CONTROL HEAD LLE in May and QUALITY CONTROL HEAD RLE - June 2016. Presented with B/L lower extremity ischemia and bilateral occluded SFA. Was on ASA and no plavix at that time. Ongoing smoking. Underwent QUALITY CONTROL HEAD LLE with stenting 07/09 and then fasciotomy 07/11 for compartmental syndrome LLE. Has been on ASA and lovenox. Current Medications Generic Name Dose Route Start Last Admin Trade Name Freq PRN Reason Stop Dose Admin Acetaminophen 325 mg 07/13/17 12:15 07/16/17 06:28 Tylenol - PO 325 mg Q4H PRN Administration PAIN Aspirin 81 mg 07/13/17 10:00 07/16/17 09:45 Ecotrin - PO 81 mg DAILY JENN[facility]ER Administration Atorvastatin Calcium 10 mg 07/12/17 22:00 07/15/17 21:21 Lipitor - PO 10 mg HS JENNIFER Administration Bisacodyl 5 mg 07/13/17 12:17 07/14/17 15:23 Dulcolax - PO 5 mg DAILY PRN Administration CONSTIPATION Budesonide/Formoterol Fumarate 1 puff 07/12/17 22:00 07/16/17 09:47 Symbicort 160/4.5mcg - IH 1 inh BID JENN[facility]ER Administration Enoxaparin Sodium 80 mg 07/12/17 22:00 07/16/17 09:46 Lovenox - SQ 80 mg BID [facility]ER Administration Escitalopram Oxalate 20 mg 07/12/17 22:00 07/15/17 21:21 Lexapro - PO 20 mg HS JENN[facility]ER Administration Gabapentin 600 mg 07/12/17 22:00 07/16/17 09:45 Neurontin - PO 600 mg BID JENN[facility]ER Administration Insulin Aspart 1 vial 07/12/17 16:30 07/16/17 06:31 Novolog Vial Sliding Scale - SQ Not Given ACHS JENNIFER Protocol Insulin Detemir 30 units 07/12/17 22:00 07/15/17 21:20 Levemir Vial SQ 30 units HS JENN[facility]ER Administration Loratadine 10 mg 07/12/17 14:13 Claritin - PO DAILY PRN allergies Mirtazapine 30 mg 07/12/17 22:00 07/15/17 21:21 Remeron - PO 30 mg HS JENN[facility]ER Administration Montelukast Sodium 10 mg 07/12/17 22:00 07/15/17 21:21 Singulair - PO 10 mg HS JENN[facility]ER Administration Non-Formulary Medication 1 each 07/12/17 22:00 07/15/17 21:22 Emtricitabine/Tenofov Alafenam [Descovy 200-25 Mg Tablet (Nf)] PO 1 each HS JENNIFER Administration Non-Formulary Medication 50 mg 07/14/17 22:00 07/15/17 21:22 Dolutegravir Sodium PO 50 mg HS JENN[facility]ER Administration Ondansetron HCl 4 mg 07/12/17 14:13 Zofran Injection IVPUSH Q6H PRN NAUSEA AND/OR VOMITING Pantoprazole Sodium 20 mg 07/12/17 22:00 07/16/17 09:45 Protonix - PO 20 mg BID [facility]ER Administration Polyethylene Glycol 17 gm 07/13/17 12:30 07/16/17 09:47 Miralax (For Daily Use) - PO Not Given BID JENN[facility]ER Promethazine HCl 12.5 mg 07/12/17 14:13 Phenergan Injection - IVPUSH Q6H PRN NAUSEA-FOR RESCUE AFTER 15 MIN Last Vital Signs Temp Pulse Resp BP Pulse Ox 98.7 F 81 20 93/58 94 L 07/16/17 05:30 07/16/17 09:00 07/16/17 09:00 07/16/17 09:00 07/14/17 21:00 HEENT: VENKATA, EOM Intact Oropharynx: No thrush, No mucositis Cor: RSR, No murmurs, No gallops Lungs: Clear to P&A Abd: Soft, Normal bowel sounds, No organomegaly Ext:LLE distally dressed. Left foot warm; Moves toes LLE Skin: No rashes, CBC, BMP 07/16/17 07:50 07/12/17 05:15 Impression: S/P QUALITY CONTROL HEAD, stenting LLE S/P fasciotomy LLE Prior history of RLE QUALITY CONTROL HEAD Hx CAD with stent HIV on treatment HBP DM hpl COPD smoking Anemia Plan: Vascular follow up re: wound s/p fasciotomy Smoking cessation/counselling ASA NOAC life long
--- NOTE | 2017-07-16 16:24 | PN ---
Teaching Attending Note Name of Resident: Carlos Glover ATTENDING PHYSICIAN STATEMENT I saw and evaluated the patient. I reviewed the resident's note and discussed the case with the resident. I agree with the resident's findings and plan as documented. SUBJECTIVE: no fever or chills . has no abd pain no OSB. pain in L leg is acceptable OBJECTIVE: NAD Lungs : CTAB CV: RRR, no MRG Ext: L leg with longitudinal wounds with some black discoloration of lateral wound on edge. swollen muscles today . has improved sensation to light touch in L foot. DP 1+ in L , not felt on R. minimal movement of toes ASSESSMENT AND PLAN: 57 y/o lady with h/o CAD, s/p stenting in 2014, HLP, HTN, and other medical problems who presented with b/l LE pain , and was found ot have acute ischemia of LEs, then developed compartment syndrome after reperfusion of L leg 1- Acute ischemia of LEs s/p SFA stent 07/09, with development of compartment syndrome of L leg s/p fascietomy 07/11 . - cont lovenox BID - wound with continued black escar on lateral side ,and muscles are swollen today. Dr Keesha nolasco notified - will start eliquis close to dc after all possible procedures -cont oxycodone - Duration of AC for life 2- H/o CAD, s/p stenting : - Aspirin 3- DM : - cont levemir 30 . - cont SSI HLOC
--- NOTE | 2017-07-16 16:27 | PN ---
Progress Note (short form) - Note Progress Note: VAscular Surgery Pt seen and examined. Dressing changed. Muscle is healthy and viable. Still some swelling Will wait a little bit to close the incisions. Will aim to close incisions on . Xeroform dressing changes daily. Gabriel Guzmán dO Problem List - Problems (1) Ischemia of both lower extremities Code(s): I99.8 - OTHER DISORDER OF CIRCULATORY SYSTEM
--- NOTE | 2017-07-16 18:14 | PN ---
Physical Exam: SUBJECTIVE: Patient seen and examined at bedside. She states that she has some pain in her L leg, but it is much improved from what it was previously. Patient states that she is ambulating but very slowly and carefully. Patient denies chest pain, SOB, nausea, vomiting, diarrhea, purulent drainage from wound. OBJECTIVE: Vital Signs Period Temp Pulse Resp BP Sys/Cota Pulse Ox Last 24 Hr 98.1 F-98.8 F 64-82 18-20 93-128/52-68 GENERAL: The patient is awake, alert, and fully oriented, in no acute distress. HEAD: Normal with no signs of trauma. EYES: PERRL, extraocular movements intact, sclera anicteric, conjunctiva clear. No ptosis. ENT: Ears normal, nares patent, oropharynx clear without exudates, moist mucous membranes. NECK: Trachea midline, full range of motion, supple. LUNGS: Breath sounds equal, clear to auscultation bilaterally, no wheezes, no crackles, no accessory muscle use. HEART: Regular rate and rhythm, S1, S2, 2/6 systolic murmur noted on exam. ABDOMEN: Soft, nontender, nondistended, normoactive bowel sounds, no guarding, no rebound, no hepatosplenomegaly, no masses. EXTREMITIES: 1+ pulses bilaterally (confirmed with doppler ultrasound), warm, well-perfused, swelling noted in muscle of LLE with some black-colored tissue near the periphery of the lateral wound. No purulent drainage noted. NEUROLOGICAL: Cranial nerves II through XII grossly intact. Normal speech, gait not observed. PSYCH: Normal mood, normal affect. SKIN: Warm, dry, normal turgor, no rashes or lesions noted, several tattoos noted on exam Laboratory Results - last 24 hr 07/15/17 07/16/17 07/16/17 21:19 06:26 07:50 WBC 7.8 RBC 3.68 Hgb 9.5 L Hct 30.8 L MCV 83.6 MCH 25.8 MCHC 30.8 L RDW 15.1 Plt Count 230 MPV 8.6 PTT (Actin FS) POC Glucometer 202 142 07/16/17 07/16/17 07/16/17 07:50 09:51 16:19 WBC RBC Hgb Hct MCV MCH MCHC RDW Plt Count MPV PTT (Actin FS) 28.0 POC Glucometer 161 224 Active Medications Generic Name Dose Route Start Last Admin Trade Name Freq PRN Reason Stop Dose Admin Acetaminophen 325 mg 07/13/17 12:15 07/16/17 16:55 Tylenol - PO 325 mg Q4H PRN Administration PAIN Aspirin 81 mg 07/13/17 10:00 07/16/17 09:45 Ecotrin - PO 81 mg DAILY [facility]ENN[facility]ER Administration Atorvastatin Calcium 10 mg 07/12/17 22:00 07/15/17 21:21 Lipitor - PO 10 mg HS JENN[facility]ER Administration Bisacodyl 5 mg 07/13/17 12:17 07/14/17 15:23 Dulcolax - PO 5 mg DAILY PRN Administration CONSTIPATION Budesonide/Formoterol Fumarate 1 puff 07/12/17 22:00 07/16/17 09:47 Symbicort 160/4.5mcg - IH 1 inh BID JENN[facility]ER Administration Enoxaparin Sodium 80 mg 07/12/17 22:00 07/16/17 09:46 Lovenox - SQ 80 mg BID [facility]ER Administration Escitalopram Oxalate 20 mg 07/12/17 22:00 07/15/17 21:21 Lexapro - PO 20 mg HS JENN[facility]ER Administration Gabapentin 600 mg 07/12/17 22:00 07/16/17 09:45 Neurontin - PO 600 mg BID [facility]ER Administration Insulin Aspart 1 vial 07/12/17 16:30 07/16/17 16:28 Novolog Vial Sliding Scale - SQ 4 units ACHS JENNIFER Administration Protocol Insulin Detemir 30 units 07/12/17 22:00 07/15/17 21:20 Levemir Vial SQ 30 units HS JENN[facility]ER Administration Loratadine 10 mg 07/12/17 14:13 Claritin - PO DAILY PRN allergies Mirtazapine 30 mg 07/12/17 22:00 07/15/17 21:21 Remeron - PO 30 mg HS [facility]ENN[facility]ER Administration Montelukast Sodium 10 mg 07/12/17 22:00 07/15/17 21:21 Singulair - PO 10 mg HS JENN[facility]ER Administration Non-Formulary Medication 1 each 07/12/17 22:00 07/15/17 21:22 Emtricitabine/Tenofov Alafenam [Descovy 200-25 Mg Tablet (Nf)] PO 1 each HS [facility]ER Administration Non-Formulary Medication 50 mg 07/14/17 22:00 01/14/18 21:22 Dolutegravir Sodium PO 50 mg HS [facility]ER Administration Ondansetron HCl 4 mg 07/12/17 14:13 Zofran Injection IVPUSH Q6H PRN NAUSEA AND/OR VOMITING Oxycodone HCl 10 mg 07/16/17 16:38 07/16/17 16:54 Roxicodone - PO 10 mg Q4H PRN Administration PAIN LEVEL 6-10 Pantoprazole Sodium 20 mg 07/12/17 22:00 07/16/17 09:45 Protonix - PO 20 mg BID [facility] Administration Polyethylene Glycol 17 gm 07/13/17 12:30 07/16/17 09:47 Miralax (For Daily Use) - PO Not Given BID [facility]ENN[facility]ER Promethazine HCl 12.5 mg 07/12/17 14:13 Phenergan Injection - IVPUSH Q6H PRN NAUSEA-FOR RESCUE AFTER 15 MIN ASSESSMENT/PLAN: 57 year old female with PMH HIV, DM2, HTN, CAD (s/p cardiac stent 04/15), BL SFA stents (04/17, 05/18), admitted for b/l occlusions of LEs in the setting of medication non-compliance (Plavix) #L limb ischemia:, POD5 s/p LLE fasciotomy for compartment syndrome; s/p LLE angiogram; SFA, popliteal, tibial angioplasty; SFA stent placement w/ TPA infusion -d/w Dr. Guzmán, will likely close wound on -continue Lovenox 80mg BID -continue Gwen 10mg Q4H + Acetaminophen 325mg Q4H -pulse checks q4h #Thrombocytopenia: -resolved, JEFFERY Ab negative, likely 2/2 consumption #BRENDAN: resolved -Avoid nephrotoxic agents #Diabetes Mellitus -A1C 13.3 -BGM & ISS q4h -levemir 30U at night #Hypertension: BP controlled -held BP meds #HIV: CV4 809, VL 80 on 07/04; on HAART -continue Tivicay and Descovy #Coronary Artery Disease: (s/p cardiac stent) -Cardiology consulted (Dr. Fritz). Will continue with ASA 81 daily #Hyperlipidemia - Triglycerides 1264, Cholesterol 278 on 07/04 -lipitor 10mg HS #Prophylaxis -DVT - lovenox -home PPI #FEN: -No standing fluids -Replete lytes in AM -Diabetic, low sodium diet (witnessed patient eating home meal) #Disposition -continue to monitor on med-surg FULL code Visit type - Emergency Visit Emergency Visit: No - New Patient This patient is new to me today: Yes Date on this admission: 07/16/17 - Critical Care Critical Care patient: No
[2017-07-16] MEDS ORDERED: ESCITALOPRAM OXALATE 10 MG TABLET (FP) ONE (21:24)
[2017-07-16] MEDS ORDERED: PT OWN MED DRAWER 7, Y5N ONE ×2 (21:25→22:17)
[2017-07-16] MEDS: MONTELUKAST NA 10 MG TABLET PO SCH (21:33)
[2017-07-16] MEDS: ESCITALOPRAM OXALATE 20 MG TABLET (FP) PO SCH (21:33)
[2017-07-16] MEDS: MIRTAZAPINE 30 MG TABLET (FP) PO SCH (21:33)
[2017-07-16] MEDS: ATORVASTATIN CA 10 MG TABLET (FP) PO SCH (21:33)
[2017-07-16] MEDS: PATIENT'S OWN MEDICATION (NON-FORMULARY) (Emtricitabine/Tenofov Alafenam [Descovy 200-25 M PO SCH (21:36)
[2017-07-16] MEDS: INSULIN DETEMIR 100 UNITS/ML MDV SQ SCH (21:42)
[2017-07-16] MEDS: PATIENT'S OWN MEDICATION (NON-FORMULARY) (Dolutegravir Sodium 50 MG) PO SCH (22:10)
[2017-07-17] MEDS: oxyCODONE HCL 5 MG TABLET PO PRN ×3 (06:33→21:55)
[2017-07-17] MEDS: ACETAMINOPHEN 325 MG TABLET (FP) PO PRN ×2 (06:33→21:54)
[2017-07-17] MEDS: INSULIN SLIDING SCALE (NOVOLOG) 1 VIAL SQ SCH ×4 (06:34→21:53)
[2017-07-17 08:36] LABS: HEMATOCRIT 29.5 % (32.4-45.2); HEMOGLOBIN 9.2 GM/dL (10.7-15.3); MCH 26.3 pg (25.7-33.7); MCHC 31.3 g/dl (32.0-36.0); MEAN PLT VOLUME 8.8 fl (7.5-11.1); PLATELET COUNT 236 K/MM3 (134-434); RBC 3.51 M/mm3 (3.60-5.2); RDW 15.3 % (11.6-15.6); WHITE BLOOD COUNT 6.7 K/mm3 (4.0-10.0)
[2017-07-17 08:58] LABS: ANION GAP 7 (8-16); CALCIUM 8.1 mg/dL (8.5-10.1); CHLORIDE 100 mmol/L (98-107); CO2 29 mmol/L (21-32); POTASSIUM 4.2 mmol/L (3.5-5.1); SODIUM 136 mmol/L (136-145)
[2017-07-17 09:00] LABS: BLOOD UREA NITROGEN 14 mg/dL (7-18); GLUCOSE,RANDOM 122 mg/dL (74-106); PHOSPHOROUS 3.8 mg/dL (2.5-4.9)
[2017-07-17] MEDS ORDERED: PT OWN MED DRAWER 7, Y5N ONE ×2 (09:53→21:48)
[2017-07-17] MEDS: ENOXAPARIN NA (PORCINE) 80 MG/0.8 ML DISP.SYRIN SQ SCH ×2 (09:54→21:54)
[2017-07-17] MEDS: PANTOPRAZOLE 20 MG TABLET (FP) PO SCH ×2 (09:55→21:54)
[2017-07-17] MEDS: ASPIRIN COATED 81 MG TABLET.EC PO SCH (09:55)
[2017-07-17] MEDS: POLYETHYLENE GLYCOL 3350 119 GM BTL PO SCH ×2 (09:55→22:02)
[2017-07-17] MEDS: GABAPENTIN 300 MG CAPSULE (FP) PO SCH ×2 (09:55→21:55)
--- NOTE | 2017-07-17 10:11 | PN ---
Progress Note (short form) - Note Progress Note: POD #6 Doing well. C/o mild LLE tenderness. Adequate pain control via prn meds. AVSS. Afebrile Gen: alert. nad. LLE: Lateral and medial incisions are open. Clean. Muscle pink/viable. Problem List - Problems (1) Compartment syndrome of left lower extremity Assessment/Plan: POD #6 s/p Left calf compartment syndrome resulting in fasciotomy Cont daily dressing changes as ordered. Plan on taking back to OR for wound closure 07/19/17 Medical optimization Code(s): T79.A22A - TRAUMATIC COMPARTMENT SYNDROME OF LEFT LOWER EXTREMITY, INIT
[2017-07-17] MEDS: BUDESONIDE/FORMETEROL FUMARATE 160/4.5 mcg INHALER IH SCH ×2 (12:04→22:03)
--- NOTE | 2017-07-17 13:13 | PN ---
Physical Exam: SUBJECTIVE: Patient seen and examined at bedside. Denies any new issues. No overnight events. Denies chest pain, SOB, n/v/d, minimal leg pain on L. OBJECTIVE: Vital Signs Period Temp Pulse Resp BP Sys/Cota Pulse Ox Last 24 Hr 97.8 F-98.8 F 64-90 18-20 102-118/52-68 GENERAL: The patient is awake, alert, and fully oriented, in no acute distress. HEAD: Normal with no signs of trauma. LUNGS: Breath sounds equal, clear to auscultation bilaterally, no wheezes, no crackles, no accessory muscle use. HEART: Regular rate and rhythm, S1, S2 without murmur, rub or gallop. ABDOMEN: Soft, nontender, nondistended, normoactive bowel sounds, no guarding, no rebound, no hepatosplenomegaly, no masses. EXTREMITIES: 1+ DP/PT pulse on LLE, 2+ pulses in RLE, extremities both warm. There are two open, clean incisions on the L leg both on the lateral and medial aspect. Incisions are not draining any purulent fluid. NEUROLOGICAL: Cranial nerves II through XII grossly intact. Normal speech, gait not observed. PSYCH: Normal mood, normal affect. SKIN: Warm, dry, normal turgor, no rashes or lesions noted Laboratory Results - last 24 hr 07/16/17 07/16/17 07/17/17 16:19 21:40 06:00 WBC 6.7 RBC 3.51 L Hgb 9.2 L Hct 29.5 L MCV 84.0 MCH 26.3 MCHC 31.3 L RDW 15.3 Plt Count 236 MPV 8.8 Sodium Potassium Chloride Carbon Dioxide Anion Gap BUN Creatinine POC Glucometer 224 205 Random Glucose Calcium Phosphorus Magnesium 07/17/17 07/17/17 07/17/17 06:00 06:31 12:02 WBC RBC Hgb Hct MCV MCH MCHC RDW Plt Count MPV Sodium 136 Potassium 4.2 Chloride 100 Carbon Dioxide 29 Anion Gap 7 L BUN 14 Creatinine 1.0 POC Glucometer 135 128 Random Glucose 122 H Calcium 8.1 L Phosphorus 3.8 D Magnesium 2.0 Active Medications Generic Name Dose Route Start Last Admin Trade Name Freq PRN Reason Stop Dose Admin Acetaminophen 325 mg 07/13/17 12:15 07/17/17 06:33 Tylenol - PO 325 mg Q4H PRN Administration PAIN Aspirin 81 mg 07/13/17 10:00 07/17/17 09:55 Ecotrin - PO 81 mg DAILY JENNIFER Administration Atorvastatin Calcium 10 mg 07/12/17 22:00 07/16/17 21:33 Lipitor - PO 10 mg HS JENNIFER Administration Bisacodyl 5 mg 07/13/17 12:17 07/14/17 15:23 Dulcolax - PO 5 mg DAILY PRN Administration CONSTIPATION Budesonide/Formoterol Fumarate 1 puff 07/12/17 22:00 07/17/17 12:04 Symbicort 160/4.5mcg - IH 1 inh BID JENNIFER Administration Enoxaparin Sodium 80 mg 07/12/17 22:00 07/17/17 09:54 Lovenox - SQ 80 mg BID JENN[facility]ER Administration Escitalopram Oxalate 20 mg 07/12/17 22:00 07/16/17 21:33 Lexapro - PO 20 mg HS JENNIFER Administration Gabapentin 600 mg 07/12/17 22:00 07/17/17 09:55 Neurontin - PO 600 mg BID JENNIFER Administration Insulin Aspart 1 vial 07/12/17 16:30 07/17/17 12:04 Novolog Vial Sliding Scale - SQ Not Given [facility] Protocol Insulin Detemir 30 units 07/12/17 22:00 07/16/17 21:42 Levemir Vial SQ 30 units HS JENNIFER Administration Loratadine 10 mg 07/12/17 14:13 Claritin - PO DAILY PRN allergies Mirtazapine 30 mg 07/12/17 22:00 07/16/17 21:33 Remeron - PO 30 mg HS JENNIFER Administration Montelukast Sodium 10 mg 07/12/17 22:00 07/16/17 21:33 Singulair - PO 10 mg HS JENNIFER Administration Non-Formulary Medication 1 each 07/12/17 22:00 07/16/17 21:36 Emtricitabine/Tenofov Alafenam [Descovy 200-25 Mg Tablet (Nf)] PO 1 each HS JENNIFER Administration Non-Formulary Medication 50 mg 07/14/17 22:00 07/16/17 22:10 Dolutegravir Sodium PO 50 mg HS JENNIFER Administration Ondansetron HCl 4 mg 07/12/17 14:13 Zofran Injection IVPUSH Q6H PRN NAUSEA AND/OR VOMITING Oxycodone HCl 10 mg 07/16/17 16:38 07/17/17 06:33 Roxicodone - PO 10 mg Q4H PRN Administration PAIN LEVEL 6-10 Pantoprazole Sodium 20 mg 07/12/17 22:00 07/17/17 09:55 Protonix - PO 20 mg BID JENNIFER Administration Polyethylene Glycol 17 gm 07/13/17 12:30 07/17/17 09:55 Miralax (For Daily Use) - PO Not Given BID JENNIFER Promethazine HCl 12.5 mg 07/12/17 14:13 Phenergan Injection - IVPUSH Q6H PRN NAUSEA-FOR RESCUE AFTER 15 MIN CBC, BMP 07/17/17 06:00 07/17/17 06:00 ASSESSMENT/PLAN: 57 year old female with PMH HIV, DM2, HTN, CAD (s/p cardiac stent 04/15), BL SFA stents (04/17, 05/18), admitted for b/l occlusions of LEs in the setting of medication non-compliance (Plavix) #L limb ischemia:, POD5 s/p LLE fasciotomy for compartment syndrome; s/p LLE angiogram; SFA, popliteal, tibial angioplasty; SFA stent placement w/ TPA infusion -Surgery re-evaluated the wound, will likely close on as per Dr. Guzmán -continue Lovenox 80mg BID -continue Gwen 10mg Q4H + Acetaminophen 325mg Q4H #Thrombocytopenia: resolved -JEFFERY Ab negative #BRENDAN: resolved -Avoid nephrotoxic agents #Diabetes Mellitus -A1C 13.3 -BGM & ISS q4h -continue levemir 30U at night #Hypertension: BP controlled -held BP meds #HIV: CV4 809, VL 80 on 07/04; on HAART -continue Tivicay and Descovy #Coronary Artery Disease: (s/p cardiac stent) -Will continue with ASA 81 daily -Appreciate cardiology recommendations #Hyperlipidemia - Triglycerides 1264, Cholesterol 278 on 07/04 -continue lipitor 10mg HS #Prophylaxis -DVT - lovenox -home PPI #FEN: -No standing fluids -Replete lytes as necessary in AM -Diabetic, low sodium diet (witnessed patient eating home meal) #Disposition -continue to monitor on med-surg FULL code Visit type - Emergency Visit Emergency Visit: No - New Patient This patient is new to me today: No - Critical Care Critical Care patient: No
--- NOTE | 2017-07-17 13:27 | PN ---
Progress Note (short form) - Note Progress Note: pt seen and examined. events noted. Feels OK. denies any other complains. leg about the same Constitutional: Yes:NAD Eyes: Yes: Conjunctiva Clear HENT: Yes: Atraumatic, Normocephalic Neck: Yes: Supple Cardiovascular: Yes: Regular Rate and Rhythm, Tachycardic Respiratory: Yes: Regular, CTA Bilaterally Gastrointestinal: Yes: Normal Bowel Sounds, Soft, Abdomen, Obese Musculoskeletal: Yes: WNL Edema: Yes Edema: LLE: in dressing, able to wiggle toes Last Vital Signs Temp Pulse Resp BP Pulse Ox 97.8 F 87 20 117/52 94 L 07/17/17 08:55 07/17/17 08:55 07/17/17 08:55 07/17/17 08:55 07/14/17 21:00 CBC, BMP 07/17/17 06:00 07/17/17 06:00 Current Medications Generic Name Dose Route Start Last Admin Trade Name Freq PRN Reason Stop Dose Admin Acetaminophen 325 mg 07/13/17 12:15 07/17/17 06:33 Tylenol - PO 325 mg Q4H PRN Administration PAIN Aspirin 81 mg 07/13/17 10:00 07/17/17 09:55 Ecotrin - PO 81 mg DAILY JENNIFER Administration Atorvastatin Calcium 10 mg 07/12/17 22:00 07/16/17 21:33 Lipitor - PO 10 mg HS JENNIFER Administration Bisacodyl 5 mg 07/13/17 12:17 07/14/17 15:23 Dulcolax - PO 5 mg DAILY PRN Administration CONSTIPATION Budesonide/Formoterol Fumarate 1 puff 07/12/17 22:00 07/17/17 12:04 Symbicort 160/4.5mcg - IH 1 inh BID JENNIFER Administration Enoxaparin Sodium 80 mg 07/12/17 22:00 07/17/17 09:54 Lovenox - SQ 80 mg BID JENNIFER Administration Escitalopram Oxalate 20 mg 07/12/17 22:00 07/16/17 21:33 Lexapro - PO 20 mg HS JENNIFER Administration Gabapentin 600 mg 07/12/17 22:00 07/17/17 09:55 Neurontin - PO 600 mg BID JENNIFER Administration Insulin Aspart 1 vial 07/12/17 16:30 07/17/17 12:04 Novolog Vial Sliding Scale - SQ Not Given ACHS [facility] Protocol Insulin Detemir 30 units 07/12/17 22:00 07/16/17 21:42 Levemir Vial SQ 30 units HS JENNIFER Administration Loratadine 10 mg 07/12/17 14:13 Claritin - PO DAILY PRN allergies Mirtazapine 30 mg 07/12/17 22:00 07/16/17 21:33 Remeron - PO 30 mg HS JENNIFER Administration Montelukast Sodium 10 mg 07/12/17 22:00 07/16/17 21:33 Singulair - PO 10 mg HS JENNIFER Administration Non-Formulary Medication 1 each 07/12/17 22:00 07/16/17 21:36 Emtricitabine/Tenofov Alafenam [Descovy 200-25 Mg Tablet (Nf)] PO 1 each HS JENNIFER Administration Non-Formulary Medication 50 mg 07/14/17 22:00 07/16/17 22:10 Dolutegravir Sodium PO 50 mg HS JENNIFER Administration Ondansetron HCl 4 mg 07/12/17 14:13 Zofran Injection IVPUSH Q6H PRN NAUSEA AND/OR VOMITING Oxycodone HCl 10 mg 07/16/17 16:38 07/17/17 13:21 Roxicodone - PO 10 mg Q4H PRN Administration PAIN LEVEL 6-10 Pantoprazole Sodium 20 mg 07/12/17 22:00 07/17/17 09:55 Protonix - PO 20 mg BID JENNIFER Administration Polyethylene Glycol 17 gm 07/13/17 12:30 07/17/17 09:55 Miralax (For Daily Use) - PO Not Given BID JENNIFER Promethazine HCl 12.5 mg 07/12/17 14:13 Phenergan Injection - IVPUSH Q6H PRN NAUSEA-FOR RESCUE AFTER 15 MIN 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
--- NOTE | 2017-07-17 19:22 | PN ---
Teaching Attending Note Name of Resident: Carlos Glover ATTENDING PHYSICIAN STATEMENT I saw and evaluated the patient. I reviewed the resident's note and discussed the case with the resident. I agree with the resident's findings and plan as documented. SUBJECTIVE: No fever or chills. has no pain in leg with pain meds OBJECTIVE: Lungs : CTAB CV: RRR, no MRG Ext: L leg with longitudinal wounds with some black discoloration of lateral wound on edge. swollen muscles today . has improved sensation to light touch in L foot. DP 1+ in L , not felt on R. minimal movement of toes ASSESSMENT AND PLAN: 57 y/o lady with h/o CAD, s/p stenting in 2014, HLP, HTN, and other medical problems who presented with b/l LE pain , and was found ot have acute ischemia of LEs, then developed compartment syndrome after reperfusion of L leg 1- Acute ischemia of LEs s/p SFA stent 07/09, with development of compartment syndrome of L leg s/p fascietomy 07/11 . - cont lovenox BID - surgery input appreciated - will start eliquis close to dc after all possible procedures ( covered by her insurance ) - cont oxycodone - Duration of AC for life 2- H/o CAD, s/p stenting : - Aspirin 3- DM : - cont levemir 30. might have to give half dose the night before procedure - cont SSI HLOC
[2017-07-17] MEDS ORDERED: ESCITALOPRAM OXALATE 10 MG TABLET (FP) ONE (21:47)
[2017-07-17] MEDS ORDERED: INSULIN (NOVOLOG) ASPART 100 UNITS/ML 10ML VIAL ONE (21:49)
[2017-07-17] MEDS: MONTELUKAST NA 10 MG TABLET PO SCH (21:54)
[2017-07-17] MEDS: ATORVASTATIN CA 10 MG TABLET (FP) PO SCH (21:54)
[2017-07-17] MEDS: INSULIN DETEMIR 100 UNITS/ML MDV SQ SCH (21:54)
[2017-07-17] MEDS: MIRTAZAPINE 30 MG TABLET (FP) PO SCH (21:55)
[2017-07-17] MEDS: ESCITALOPRAM OXALATE 20 MG TABLET (FP) PO SCH (22:02)
[2017-07-17] MEDS: PATIENT'S OWN MEDICATION (NON-FORMULARY) (Dolutegravir Sodium 50 MG) PO SCH (22:02)
[2017-07-17] MEDS: PATIENT'S OWN MEDICATION (NON-FORMULARY) (Emtricitabine/Tenofov Alafenam [Descovy 200-25 M PO SCH (22:02)
[2017-07-18] MEDS: INSULIN SLIDING SCALE (NOVOLOG) 1 VIAL SQ SCH ×4 (06:50→21:44)
--- NOTE | 2017-07-18 07:18 | PN ---
Physical Exam: SUBJECTIVE: Patient seen and examined at bedside. Patient denies any chest pain , shortness of breath, nausea, vomiting, diarrhea. Denies overt pain in her L leg, but states that the wounds are sometimes burning in nature. Patient is able to ambulate with a walker and has normal bowel movements. OBJECTIVE: Vital Signs Period Temp Pulse Resp BP Sys/Cota Pulse Ox Last 24 Hr 97.8 F-98.9 F 74-94 20-20 98-117/50-55 GENERAL: The patient is awake, alert, and fully oriented, in no acute distress. HEAD: Normal with no signs of trauma. LUNGS: Breath sounds equal, clear to auscultation bilaterally, no wheezes, no crackles, no accessory muscle use. HEART: Regular rate and rhythm, S1, S2 without murmur, rub or gallop. ABDOMEN: Soft, nontender, nondistended, normoactive bowel sounds, no guarding, no rebound, no hepatosplenomegaly, no masses. EXTREMITIES: 1+ DP/PT pulse on LLE, 2+ pulses in RLE, extremities both warm. There are two open, clean incisions on the L leg both on the lateral and medial aspect. Incisions are not draining any purulent fluid. NEUROLOGICAL: Cranial nerves II through XII grossly intact. Normal speech, gait not observed. PSYCH: Normal mood, normal affect. SKIN: Warm, dry, normal turgor, no rashes or lesions noted Laboratory Results - last 24 hr 07/17/17 07/17/17 07/17/17 06:00 06:00 12:02 WBC 6.7 RBC 3.51 L Hgb 9.2 L Hct 29.5 L MCV 84.0 MCH 26.3 MCHC 31.3 L RDW 15.3 Plt Count 236 MPV 8.8 Sodium 136 Potassium 4.2 Chloride 100 Carbon Dioxide 29 Anion Gap 7 L BUN 14 Creatinine 1.0 POC Glucometer 128 Random Glucose 122 H Calcium 8.1 L Phosphorus 3.8 D Magnesium 2.0 07/17/17 07/17/17 16:31 21:52 WBC RBC Hgb Hct MCV MCH MCHC RDW Plt Count MPV Sodium Potassium Chloride Carbon Dioxide Anion Gap BUN Creatinine POC Glucometer 165 195 Random Glucose Calcium Phosphorus Magnesium Active Medications Generic Name Dose Route Start Last Admin Trade Name Freq PRN Reason Stop Dose Admin Acetaminophen 325 mg 07/13/17 12:15 07/17/17 21:54 Tylenol - PO 325 mg Q4H PRN Administration PAIN Aspirin 81 mg 07/13/17 10:00 07/17/17 09:55 Ecotrin - PO 81 mg DAILY JENNIFER Administration Atorvastatin Calcium 10 mg 07/12/17 22:00 07/17/17 21:54 Lipitor - PO 10 mg HS JENNIFER Administration Bisacodyl 5 mg 07/13/17 12:17 07/14/17 15:23 Dulcolax - PO 5 mg DAILY PRN Administration CONSTIPATION Budesonide/Formoterol Fumarate 1 puff 07/12/17 22:00 07/17/17 22:03 Symbicort 160/4.5mcg - IH 1 inh BID JENNIFER Administration Enoxaparin Sodium 80 mg 07/12/17 22:00 07/17/17 21:54 Lovenox - SQ 80 mg BID JENNIFER Administration Escitalopram Oxalate 20 mg 07/12/17 22:00 07/17/17 22:02 Lexapro - PO 20 mg HS JENNIFER Administration Gabapentin 600 mg 07/12/17 22:00 07/17/17 21:55 Neurontin - PO 600 mg BID JENNIFER Administration Insulin Aspart 1 vial 07/12/17 16:30 07/18/17 06:50 Novolog Vial Sliding Scale - SQ 2 units ACHS JENNIFER Administration Protocol Insulin Detemir 30 units 07/12/17 22:00 07/17/17 21:54 Levemir Vial SQ 30 units HS JENNIFER Administration Loratadine 10 mg 07/12/17 14:13 Claritin - PO DAILY PRN allergies Mirtazapine 30 mg 07/12/17 22:00 07/17/17 21:55 Remeron - PO 30 mg HS JENNIFER Administration Montelukast Sodium 10 mg 07/12/17 22:00 07/17/17 21:54 Singulair - PO 10 mg HS JENNIFER Administration Non-Formulary Medication 1 each 07/12/17 22:00 07/17/17 22:02 Emtricitabine/Tenofov Alafenam [Descovy 200-25 Mg Tablet (Nf)] PO 1 each HS JENNIFER Administration Non-Formulary Medication 50 mg 07/14/17 22:00 07/17/17 22:02 Dolutegravir Sodium PO 50 mg HS JENNIFER Administration Ondansetron HCl 4 mg 07/12/17 14:13 Zofran Injection IVPUSH Q6H PRN NAUSEA AND/OR VOMITING Oxycodone HCl 10 mg 07/16/17 16:38 07/17/17 21:55 Roxicodone - PO 10 mg Q4H PRN Administration PAIN LEVEL 6-10 Pantoprazole Sodium 20 mg 07/12/17 22:00 07/17/17 21:54 Protonix - PO 20 mg BID JENNIFER Administration Polyethylene Glycol 17 gm 07/13/17 12:30 07/17/17 22:02 Miralax (For Daily Use) - PO Not Given BID JENNIFER Promethazine HCl 12.5 mg 07/12/17 14:13 Phenergan Injection - IVPUSH Q6H PRN NAUSEA-FOR RESCUE AFTER 15 MIN ASSESSMENT/PLAN: 57 year old female with PMH HIV, DM2, HTN, CAD (s/p cardiac stent 04/15), BL SFA stents (04/17, 05/18), admitted for b/l occlusions of LEs in the setting of medication non-compliance (Plavix) #L limb ischemia:, POD7 s/p LLE fasciotomy for compartment syndrome; s/p LLE angiogram; SFA, popliteal, tibial angioplasty; SFA stent placement w/ TPA infusion -Surgery re-evaluated the wound, will likely close on as per Dr. Guzmán -continue Lovenox 80mg BID -continue Gwen 10mg Q4H + Acetaminophen 325mg Q4H #Thrombocytopenia: resolved -JEFFERY Ab negative #BRENDAN: resolved -Avoid nephrotoxic agents #Diabetes Mellitus -A1C 13.3 -BGM & ISS q4h -continue levemir 30U at night #Hypertension: BP controlled -held BP meds #HIV: CV4 809, VL 80 on 07/04; on HAART -continue Tivicay and Descovy #Coronary Artery Disease: (s/p cardiac stent) -Will continue with ASA 81 daily -Appreciate cardiology recommendations #Hyperlipidemia - Triglycerides 1264, Cholesterol 278 on 07/04 -continue lipitor 10mg HS #Prophylaxis -DVT - lovenox -home PPI #FEN: -No standing fluids -Replete lytes as necessary in AM -Diabetic, low sodium diet (witnessed patient eating home meal) #Disposition -continue to monitor on med-surg FULL code Visit type - Emergency Visit Emergency Visit: No - New Patient This patient is new to me today: No - Critical Care Critical Care patient: No
[2017-07-18 09:05] LABS: HEMATOCRIT 30.5 % (32.4-45.2); HEMOGLOBIN 9.6 GM/dL (10.7-15.3); MCH 26.4 pg (25.7-33.7); MCHC 31.4 g/dl (32.0-36.0); MEAN CELL VOLUME 84.2 fl (80-96); PLATELET COUNT 285 K/MM3 (134-434); RBC 3.62 M/mm3 (3.60-5.2); RDW 15.5 % (11.6-15.6); WHITE BLOOD COUNT 8.8 K/mm3 (4.0-10.0)
--- NOTE | 2017-07-18 09:26 | PN ---
Progress Note (short form) - Note Progress Note: Pt with ELLIOTT wrap partially off. Vital Signs Period Temp Pulse Resp BP Sys/Cota Pulse Ox Last 24 Hr 98.2 F-98.9 F 74-94 20-20 98-104/50-55 LLE: Light leg remains swollen, Elliott wrap reapplied from foot to below the knee. Left foot with drop, passive dorsi/plantar flexion. Ambulating with a walker. A/P: 57 yo female s/p LLE angiogram, SFA,popliteal artery, tibial artery angioplasty, SFA stent placement, infusion of TPA and fasciotomy Plan for possible wound closure tomorrow if edmea improves Continue ELLIOTT wrap and leg elevation
[2017-07-18] MEDS ORDERED: PT OWN MED DRAWER 7, Y5N ONE ×2 (09:29→17:52)
[2017-07-18 09:30] LABS: ANION GAP 7 (8-16); BLOOD UREA NITROGEN 15 mg/dL (7-18); CALCIUM 8.3 mg/dL (8.5-10.1); CHLORIDE 98 mmol/L (98-107); CO2 29 mmol/L (21-32); CREATININE 1.3 mg/dL (0.55-1.02); GLUCOSE,RANDOM 88 mg/dL (74-106); MAGNESIUM 2.3 mg/dL (1.8-2.4); PHOSPHOROUS 2.9 mg/dL (2.5-4.9); POTASSIUM 4.6 mmol/L (3.5-5.1); SODIUM 134 mmol/L (136-145)
[2017-07-18] MEDS: ACETAMINOPHEN 325 MG TABLET (FP) PO PRN (09:30)
[2017-07-18] MEDS: ASPIRIN COATED 81 MG TABLET.EC PO SCH (09:30)
[2017-07-18] MEDS: PANTOPRAZOLE 20 MG TABLET (FP) PO SCH ×2 (09:30→21:36)
[2017-07-18] MEDS: oxyCODONE HCL 5 MG TABLET PO PRN (09:30)
[2017-07-18] MEDS: GABAPENTIN 300 MG CAPSULE (FP) PO SCH ×2 (09:30→21:36)
[2017-07-18] MEDS: ENOXAPARIN NA (PORCINE) 80 MG/0.8 ML DISP.SYRIN SQ SCH ×2 (09:31→21:35)
[2017-07-18] MEDS: POLYETHYLENE GLYCOL 3350 119 GM BTL PO SCH ×2 (09:31→21:36)
[2017-07-18] MEDS: BUDESONIDE/FORMETEROL FUMARATE 160/4.5 mcg INHALER IH SCH ×2 (09:31→21:45)
[2017-07-18] MEDS ORDERED: INSULIN (NOVOLOG) ASPART 100 UNITS/ML 10ML VIAL ONE ×2 (16:18→21:48)
--- NOTE | 2017-07-18 17:50 | CON.PSY ---
Psychiatry Consult Chief Complaint: 57 year old female admitted with infected leg> has a history of chronic Depression , seen at [facility] in [place]. Spoke to patient daughter who re[ports increased confusion from meds. Symptoms: reports: Depressed Mood, Anxiety - Previous Psychiatric Treatment Outpatient: Less than 6 mos ago Inpatient: None - Reason for Previous Treatment Reason for Previous Treatment: Major Depression, Anxiety or Panic Disorder - Current Medications Current Medications: Active Medications Acetaminophen (Tylenol -) 325 mg PO Q4H PRN PRN Reason: PAIN Last Admin: 07/18/17 09:30 Dose: 325 mg Aspirin (Ecotrin -) 81 mg PO DAILY [facility] Last Admin: 07/18/17 09:30 Dose: 81 mg Atorvastatin Calcium (Lipitor -) 10 mg PO HS [facility] Last Admin: 07/17/17 21:54 Dose: 10 mg Bisacodyl (Dulcolax -) 5 mg PO DAILY PRN PRN Reason: CONSTIPATION Last Admin: 07/14/17 15:23 Dose: 5 mg Budesonide/Formoterol Fumarate (Symbicort 160/4.5mcg -) 1 puff IH BID [facility] Last Admin: 07/18/17 09:31 Dose: 1 inh Enoxaparin Sodium (Lovenox -) 80 mg SQ BID [facility] Last Admin: 07/18/17 09:31 Dose: 80 mg Escitalopram Oxalate (Lexapro -) 10 mg PO DAILY [facility] Gabapentin (Neurontin -) 600 mg PO BID [facility] Last Admin: 07/18/17 09:30 Dose: 600 mg Insulin Aspart (Novolog Vial Sliding Scale -) 1 vial SQ [facility] PRN Reason: Protocol Last Admin: 07/18/17 16:19 Dose: 2 units Insulin Detemir (Levemir Vial) 30 units SQ [facility] Last Admin: 07/17/17 21:54 Dose: 30 units Loratadine (Claritin -) 10 mg PO DAILY PRN PRN Reason: allergies Montelukast Sodium (Singulair -) 10 mg PO [facility] Last Admin: 07/17/17 21:54 Dose: 10 mg Non-Formulary Medication (Emtricitabine/Tenofov Alafenam [Descovy 200-25 Mg Tablet (Nf)]) 1 each PO [facility] Last Admin: 07/17/17 22:02 Dose: 1 each Non-Formulary Medication (Dolutegravir Sodium) 50 mg PO HS [facility] Last Admin: 07/17/17 22:02 Dose: 50 mg Ondansetron HCl (Zofran Injection) 4 mg IVPUSH Q6H PRN PRN Reason: NAUSEA AND/OR VOMITING Oxycodone HCl (Roxicodone -) 10 mg PO Q4H PRN PRN Reason: PAIN LEVEL 6-10 Last Admin: 07/18/17 09:30 Dose: 10 mg Pantoprazole Sodium (Protonix -) 20 mg PO BID [facility] Last Admin: 07/18/17 09:30 Dose: 20 mg Polyethylene Glycol (Miralax (For Daily Use) -) 17 gm PO BID [facility] Last Admin: 07/18/17 09:31 Dose: Not Given Promethazine HCl (Phenergan Injection -) 12.5 mg IVPUSH Q6H PRN PRN Reason: NAUSEA-FOR RESCUE AFTER 15 MIN - Allergies Allergies: Allergies Allergy/AdvReac Type Severity Reaction Status Date / Time Fish Containing Products Allergy Verified 07/11/17 11:41 - Current Living Status Usual Living Arrangement: With Significant Other - Current Mental Status Evaluation Appearance: Well Groomed Attitude: Cooperative - Mood Mood: Euthymic - Speech/Language Expressive: Coherent - Psychomotor Activity Psychomotor Activity: Normal - Thought Process Thought Process: Intact - Thought Content Hallucinations: Absent Delusions: Absent - Self Perception Self Perception: No Impairment - Cognition Attention: Alert Orientation: Time Memory, Immediate Recall: Intact Memory, Short Term: 2/3 Memory, Remote with Promptin/3 - Concentration Serial Sevens Intact: No Simple Calculations Intact: No - Abstraction Proverb Interpretation: Intact Judgement: Intact - Insight Insight: Intact - Impulse Control Impulse Control: Good Control - Suicidal Ideation Suicidal Ideation: No - Homicidal Ideation Homicidal Ideation: No Assessment/Plan 1) Reduce Lexapro to 10mg po od. 2) reduce4 Remeron to 15mg po hs. 3) Follow up at [address] [place] [address] health clinic.
--- NOTE | 2017-07-18 18:23 | PN ---
Teaching Attending Note Name of Resident: Carlos Glover ATTENDING PHYSICIAN STATEMENT I saw and evaluated the patient. I reviewed the resident's note and discussed the case with the resident. I agree with the resident's findings and plan as documented. SUBJECTIVE: Patient is lying in bed with no acute distress, at bedside checking the wound. OBJECTIVE: Vital Signs Temperature 98.3 F 07/18/17 14:46 Pulse Rate 81 07/18/17 14:46 Respiratory Rate 18 07/18/17 14:46 Blood Pressure 119/41 07/18/17 14:46 O2 Sat by Pulse Oximetry (%) 94 L 07/14/17 21:00 Current Medications Generic Name Dose Route Start Last Admin Trade Name Freq PRN Reason Stop Dose Admin Acetaminophen 325 mg 07/13/17 12:15 07/18/17 09:30 Tylenol - PO 325 mg Q4H PRN Administration PAIN Aspirin 81 mg 07/13/17 10:00 07/18/17 09:30 Ecotrin - PO 81 mg DAILY JENNIFER Administration Atorvastatin Calcium 10 mg 07/12/17 22:00 07/17/17 21:54 Lipitor - PO 10 mg HS JENNIFER Administration Bisacodyl 5 mg 07/13/17 12:17 07/14/17 15:23 Dulcolax - PO 5 mg DAILY PRN Administration CONSTIPATION Budesonide/Formoterol Fumarate 1 puff 07/12/17 22:00 07/18/17 09:31 Symbicort 160/4.5mcg - IH 1 inh BID JENNIFER Administration Enoxaparin Sodium 80 mg 07/12/17 22:00 07/18/17 09:31 Lovenox - SQ 80 mg BID JENNIFER Administration Escitalopram Oxalate 10 mg 07/19/17 10:00 Lexapro - PO DAILY JENNIFER Gabapentin 600 mg 07/12/17 22:00 07/18/17 09:30 Neurontin - PO 600 mg BID JENNIFER Administration Insulin Aspart 1 vial 07/12/17 16:30 07/18/17 16:19 Novolog Vial Sliding Scale - SQ 2 units ACHS JENNIFER Administration Protocol Insulin Detemir 30 units 07/12/17 22:00 07/17/17 21:54 Levemir Vial SQ 30 units HS JENNIFER Administration Loratadine 10 mg 07/12/17 14:13 Claritin - PO DAILY PRN allergies Mirtazapine 15 mg 07/18/17 22:00 Remeron - PO HS JENNIFER Montelukast Sodium 10 mg 07/12/17 22:00 07/17/17 21:54 Singulair - PO 10 mg HS JENNIFER Administration Non-Formulary Medication 1 each 07/12/17 22:00 07/17/17 22:02 Emtricitabine/Tenofov Alafenam [Descovy 200-25 Mg Tablet (Nf)] PO 1 each HS JENNIFER Administration Non-Formulary Medication 50 mg 07/14/17 22:00 07/17/17 22:02 Dolutegravir Sodium PO 50 mg HS JENNIFER Administration Ondansetron HCl 4 mg 07/12/17 14:13 Zofran Injection IVPUSH Q6H PRN NAUSEA AND/OR VOMITING Oxycodone HCl 10 mg 07/16/17 16:38 07/18/17 09:30 Roxicodone - PO 10 mg Q4H PRN Administration PAIN LEVEL 6-10 Pantoprazole Sodium 20 mg 07/12/17 22:00 07/18/17 09:30 Protonix - PO 20 mg BID JENNIFER Administration Polyethylene Glycol 17 gm 07/13/17 12:30 07/18/17 09:31 Miralax (For Daily Use) - PO Not Given BID JENNIFER Promethazine HCl 12.5 mg 07/12/17 14:13 Phenergan Injection - IVPUSH Q6H PRN NAUSEA-FOR RESCUE AFTER 15 MIN Home Medications Medication Instructions Recorded Gabapentin [Neurontin] 600 mg PO BID 07/06/16 Magnesium 200 mg PO DAILY PRN 07/06/16 Dolutegravir Sodium [Tivicay] 50 mg PO DAILY #30 tablet 04/04/17 Emtricitabine/Tenofov Alafenam 1 each PO HS #30 tablet 04/04/17 [Descovy 200-25 mg Tablet (Nf)] Lisinopril 5 mg PO HS #30 tablet 04/04/17 Loratadine [Claritin -] 10 mg PO DAILY PRN #30 tablet 04/04/17 Montelukast Na [Singulair -] 10 mg PO HS 04/26/17 Clopidogrel Bisulfate [Plavix -] 75 mg PO DAILY #30 tablet 04/27/17 Aspirin [Aspirin EC] 81 mg PO DAILY 05/02/17 Insulin Glargine,Hum.rec.anlog 35 unit SQ HS 05/02/17 [Roseann Etienne] Insulin Lispro [Humalog Kwikpen 15 unit SQ TID #7 ea 05/02/17 U-200] Omeprazole 20 mg PO BID #60 tablet. 06/01/17 Budesonide/Formeterol Fumarate 1 puff IH BID 07/04/17 [SYMBICORT 160/4.5mcg -] Clonazepam [Klonopin -] 0.5 mg PO TID #90 tablet MDD 1.5mg 07/04/17 Escitalopram Oxalate [Lexapro -] 20 mg PO HS #30 tablet 07/04/17 Mirtazapine [Remeron -] 30 mg PO HS #30 tablet 07/04/17 Olopatadine HCl [Pataday] 1 drop OP DAILY #2.5 ml 07/04/17 Oxybutynin Chloride [Oxybutynin 10 mg PO DAILY 07/04/17 Chloride ER] Zolpidem Tartrate [Ambien] 5 mg PO HS #30 tab MDD 1 07/04/17 Pravastatin Sodium [Pravachol (Nf)] 40 mg PO HS 07/09/17 PE: Lungs : CTAB CV: RRR, no MRG Ext: palpable pulses, positive for fasciatomy with LLE muscles are exposed with some necrotic edges.on the lateral aspect of the wound. ASSESSMENT AND PLAN: Patient is 57 y/o lady with h/o CAD, s/p stenting in 2014, HLP, HTN, and other medical problems who presented with b/l LE pain , and was found to have acute ischemia of LEs, then developed compartment syndrome after reperfusion of L leg #Acute ischemia of LEs s/p SFA stent 07/09, with reperfusion of LLE , developed compartment syndrome of Left leg s/p fascietomy 07/11 . ON Lovenox BID sq, going for wash out of the wound in am by , will hold am dose of Lovenox since going to OR . Will start eliquis close to dc after all possible procedures ( covered by her insurance ). cont oxycodone , Duration of AC for life # H/o CAD, s/p stenting : on Aspirin continue # DM : cont levemir will give only 15 units instead of 30 units since will be NPO and going to OR. Hold Lovenox the morning dose, patient is going to OR in am, discussed with to hold the morning dose and reduced Levimir 15U tonight. Psych. evaluated her and made the appropiated changes to her meds. since as per daughter patient is overly confused at times, 's consult appreciated. going to OR in am for washing the wound and then will apply a wound vac to go to rehab with. as per .
--- NOTE | 2017-07-18 18:26 | PN ---
Progress Note (short form) - Note Progress Note: pt seen and examined. Is able to move LLE. In Ch[place]ale wrap Constitutional: Yes:NAD Eyes: Yes: Conjunctiva Clear HENT: Yes: Atraumatic, Normocephalic Neck: Yes: Supple Cardiovascular: Yes: Regular Rate and Rhythm, Tachycardic Respiratory: Yes: Regular, CTA Bilaterally Gastrointestinal: Yes: Normal Bowel Sounds, Soft, Abdomen, Obese Musculoskeletal: Yes: WNL Edema: Yes Edema: LLE: in dressing, able to wiggle toes Last Vital Signs Temp Pulse Resp BP Pulse Ox 98.3 F 81 18 119/41 94 L 07/18/17 14:46 07/18/17 14:46 07/18/17 14:46 07/18/17 14:46 07/14/17 21:00 CBC, BMP 07/18/17 07:45 07/18/17 07:45 Current Medications Generic Name Dose Route Start Last Admin Trade Name Freq PRN Reason Stop Dose Admin Acetaminophen 325 mg 07/13/17 12:15 07/18/17 09:30 Tylenol - PO 325 mg Q4H PRN Administration PAIN Aspirin 81 mg 07/13/17 10:00 07/18/17 09:30 Ecotrin - PO 81 mg DAILY JENNIFER Administration Atorvastatin Calcium 10 mg 07/12/17 22:00 07/17/17 21:54 Lipitor - PO 10 mg HS JENNIFER Administration Bisacodyl 5 mg 07/13/17 12:17 07/14/17 15:23 Dulcolax - PO 5 mg DAILY PRN Administration CONSTIPATION Budesonide/Formoterol Fumarate 1 puff 07/12/17 22:00 07/18/17 09:31 Symbicort 160/4.5mcg - IH 1 inh BID JENNIFER Administration Enoxaparin Sodium 80 mg 07/12/17 22:00 07/18/17 09:31 Lovenox - SQ 80 mg BID JENNIFER Administration Escitalopram Oxalate 10 mg 07/19/17 10:00 Lexapro - PO DAILY JENNIFER Gabapentin 600 mg 07/12/17 22:00 07/18/17 09:30 Neurontin - PO 600 mg BID JENNIFER Administration Insulin Aspart 1 vial 07/12/17 16:30 07/18/17 16:19 Novolog Vial Sliding Scale - SQ 2 units ACHS JENNIFER Administration Protocol Insulin Detemir 30 units 07/12/17 22:00 07/17/17 21:54 Levemir Vial SQ 30 units HS JENNIFER Administration Loratadine 10 mg 07/12/17 14:13 Claritin - PO DAILY PRN allergies Mirtazapine 15 mg 07/18/17 22:00 Remeron - PO HS JENNIFER Montelukast Sodium 10 mg 07/12/17 22:00 07/17/17 21:54 Singulair - PO 10 mg HS JENNIFER Administration Non-Formulary Medication 1 each 07/12/17 22:00 07/17/17 22:02 Emtricitabine/Tenofov Alafenam [Descovy 200-25 Mg Tablet (Nf)] PO 1 each HS JENNIFER Administration Non-Formulary Medication 50 mg 07/14/17 22:00 07/17/17 22:02 Dolutegravir Sodium PO 50 mg HS JENNIFER Administration Ondansetron HCl 4 mg 07/12/17 14:13 Zofran Injection IVPUSH Q6H PRN NAUSEA AND/OR VOMITING Oxycodone HCl 10 mg 07/16/17 16:38 07/18/17 09:30 Roxicodone - PO 10 mg Q4H PRN Administration PAIN LEVEL 6-10 Pantoprazole Sodium 20 mg 07/12/17 22:00 07/18/17 09:30 Protonix - PO 20 mg BID JENNIFER Administration Polyethylene Glycol 17 gm 07/13/17 12:30 07/18/17 09:31 Miralax (For Daily Use) - PO Not Given BID JENNIFER Promethazine HCl 12.5 mg 07/12/17 14:13 Phenergan Injection - IVPUSH Q6H PRN NAUSEA-FOR RESCUE AFTER 15 MIN 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 continue to monitor
--- NOTE | 2017-07-18 18:48 | PN ---
Progress Note (short form) - Note Progress Note: Vascular Surgery Pt seen and examined. RLE dressing changed. Muscles still swollen . Will be difficult to close. Will take to OR monty to wash out wound Will place vac dressing thereafter. Gabriel nolasco DO Problem List - Problems (1) Ischemia of both lower extremities Code(s): I99.8 - OTHER DISORDER OF CIRCULATORY SYSTEM
[2017-07-18] MEDS: ATORVASTATIN CA 10 MG TABLET (FP) PO SCH (21:36)
[2017-07-18] MEDS: MONTELUKAST NA 10 MG TABLET PO SCH (21:36)
[2017-07-18] MEDS: PATIENT'S OWN MEDICATION (NON-FORMULARY) (Emtricitabine/Tenofov Alafenam [Descovy 200-25 M PO SCH (21:37)
[2017-07-18] MEDS: PATIENT'S OWN MEDICATION (NON-FORMULARY) (Dolutegravir Sodium 50 MG) PO SCH (21:37)
[2017-07-18] MEDS ORDERED: MIRTAZAPINE 15 MG TABLET (FP) PO SCH (22:00)
[2017-07-18] MEDS ORDERED: INSULIN DETEMIR 100 UNITS/ML MDV SQ SCH (22:00)
[2017-07-19] MEDS: INSULIN SLIDING SCALE (NOVOLOG) 1 VIAL SQ SCH ×3 (06:26→22:48)
[2017-07-19 07:46] LABS: HEMATOCRIT 30.5 % (32.4-45.2); HEMOGLOBIN 9.6 GM/dL (10.7-15.3); MCH 26.3 pg (25.7-33.7); MCHC 31.6 g/dl (32.0-36.0); MEAN CELL VOLUME 83.3 fl (80-96); MEAN PLT VOLUME 8.9 fl (7.5-11.1); PLATELET COUNT 272 K/MM3 (134-434); RBC 3.66 M/mm3 (3.60-5.2); RDW 15.4 % (11.6-15.6); WHITE BLOOD COUNT 6.4 K/mm3 (4.0-10.0)
[2017-07-19 08:04] LABS: CHLORIDE 102 mmol/L (98-107); SODIUM 137 mmol/L (136-145)
[2017-07-19 08:09] LABS: ANION GAP 8 (8-16); BLOOD UREA NITROGEN 15 mg/dL (7-18); CALCIUM 8.4 mg/dL (8.5-10.1); CO2 27 mmol/L (21-32); CREATININE 1.2 mg/dL (0.55-1.02); GLUCOSE,RANDOM 165 mg/dL (74-106)
[2017-07-19] MEDS: oxyCODONE HCL 5 MG TABLET PO PRN ×3 (08:21→22:45)
[2017-07-19] MEDS: ACETAMINOPHEN 325 MG TABLET (FP) PO PRN ×3 (08:22→22:47)
[2017-07-19] MEDS ORDERED: ESCITALOPRAM OXALATE 10 MG TABLET (FP) PO SCH (10:00)
[2017-07-19] MEDS: BUDESONIDE/FORMETEROL FUMARATE 160/4.5 mcg INHALER IH SCH ×2 (10:19→22:55)
--- NOTE | 2017-07-19 11:00 | PN ---
Physical Exam: SUBJECTIVE: Patient seen and examined at bedside. Denies any current complaints. Unchanged history from yesterday. OBJECTIVE: Vital Signs Period Temp Pulse Resp BP Sys/Cota Pulse Ox Last 24 Hr 97.8 F-98.8 F 77-98 18-20 111-122/41-76 GENERAL: The patient is awake, alert, and fully oriented, in no acute distress. HEAD: Normal with no signs of trauma. LUNGS: Breath sounds equal, clear to auscultation bilaterally, no wheezes, no crackles, no accessory muscle use. HEART: Regular rate and rhythm, S1, S2 without murmur, rub or gallop. ABDOMEN: Soft, nontender, nondistended, normoactive bowel sounds, no guarding, no rebound, no hepatosplenomegaly, no masses. EXTREMITIES: 1+ DP/PT pulse on LLE, 2+ pulses in RLE, extremities both warm. There are two open, clean incisions on the L leg both on the lateral and medial aspect. Incisions are not draining any purulent fluid. NEUROLOGICAL: Cranial nerves II through XII grossly intact. Normal speech, gait not observed. PSYCH: Normal mood, normal affect. SKIN: Warm, dry, normal turgor, no rashes or lesions noted Laboratory Results - last 24 hr 07/18/17 07/18/17 07/18/17 11:24 16:15 21:41 WBC RBC Hgb Hct MCV MCH MCHC RDW Plt Count MPV Sodium Potassium Chloride Carbon Dioxide Anion Gap BUN Creatinine POC Glucometer 138 174 169 Random Glucose Calcium 07/19/17 07/19/17 07/19/17 06:24 06:40 06:40 WBC 6.4 RBC 3.66 Hgb 9.6 L Hct 30.5 L MCV 83.3 MCH 26.3 MCHC 31.6 L RDW 15.4 Plt Count 272 MPV 8.9 Sodium 137 Potassium 5.0 Chloride 102 Carbon Dioxide 27 Anion Gap 8 BUN 15 Creatinine 1.2 H POC Glucometer 176 Random Glucose 165 H Calcium 8.4 L Active Medications Generic Name Dose Route Start Last Admin Trade Name Freq PRN Reason Stop Dose Admin Acetaminophen 325 mg 07/13/17 12:15 07/19/17 08:22 Tylenol - PO 325 mg Q4H PRN Administration PAIN Aspirin 81 mg 07/13/17 10:00 07/18/17 09:30 Ecotrin - PO 81 mg DAILY JENNIFER Administration Atorvastatin Calcium 10 mg 07/12/17 22:00 07/18/17 21:36 Lipitor - PO 10 mg HS JENNIFER Administration Bisacodyl 5 mg 07/13/17 12:17 07/14/17 15:23 Dulcolax - PO 5 mg DAILY PRN Administration CONSTIPATION Budesonide/Formoterol Fumarate 1 puff 07/12/17 22:00 07/18/17 21:45 Symbicort 160/4.5mcg - IH 1 inh BID JENNIFER Administration Enoxaparin Sodium 80 mg 07/12/17 22:00 07/18/17 21:35 Lovenox - SQ 80 mg BID JENNIFER Administration Escitalopram Oxalate 10 mg 07/19/17 10:00 Lexapro - PO DAILY JENNIFER Gabapentin 600 mg 07/12/17 22:00 07/18/17 21:36 Neurontin - PO 600 mg BID JENNIFER Administration Insulin Aspart 1 vial 07/12/17 16:30 07/19/17 06:26 Novolog Vial Sliding Scale - SQ Not Given [facility] Protocol Insulin Detemir 15 units 07/18/17 22:00 07/18/17 21:42 Levemir Vial SQ 15 units HS JENNIFER Administration Loratadine 10 mg 07/12/17 14:13 Claritin - PO DAILY PRN allergies Mirtazapine 15 mg 07/18/17 22:00 07/18/17 21:35 Remeron - PO 15 mg HS JENNIFER Administration Montelukast Sodium 10 mg 07/12/17 22:00 07/18/17 21:36 Singulair - PO 10 mg HS JENNIFER Administration Non-Formulary Medication 1 each 07/12/17 22:00 07/18/17 21:37 Emtricitabine/Tenofov Alafenam [Descovy 200-25 Mg Tablet (Nf)] PO 1 each HS JENNIFER Administration Non-Formulary Medication 50 mg 07/14/17 22:00 07/18/17 21:37 Dolutegravir Sodium PO 50 mg HS JENNIFER Administration Ondansetron HCl 4 mg 07/12/17 14:13 Zofran Injection IVPUSH Q6H PRN NAUSEA AND/OR VOMITING Oxycodone HCl 10 mg 07/16/17 16:38 07/19/17 08:21 Roxicodone - PO 10 mg Q4H PRN Administration PAIN LEVEL 6-10 Pantoprazole Sodium 20 mg 07/12/17 22:00 07/18/17 21:36 Protonix - PO 20 mg BID JENNIFER Administration Polyethylene Glycol 17 gm 07/13/17 12:30 07/18/17 21:36 Miralax (For Daily Use) - PO 17 gm BID JENNIFER Administration Promethazine HCl 12.5 mg 07/12/17 14:13 Phenergan Injection - IVPUSH Q6H PRN NAUSEA-FOR RESCUE AFTER 15 MIN ASSESSMENT/PLAN: 57 year old female with PMH HIV, DM2, HTN, CAD (s/p cardiac stent 04/15), BL SFA stents (04/17, 05/18), admitted for b/l occlusions of LEs in the setting of medication non-compliance (Plavix) #L limb ischemia:, POD8 s/p LLE fasciotomy for compartment syndrome; s/p LLE angiogram; SFA, popliteal, tibial angioplasty; SFA stent placement w/ TPA infusion -Surgery re-evaluated the wound, will likely go back to OR as per Dr. Guzmán and have wound washed out with wound vac placed -continue Lovenox 80mg BID -continue Gwen 10mg Q4H + Acetaminophen 325mg Q4H #Thrombocytopenia: resolved -JEFFERY Ab negative #BRENDAN: resolved -Avoid nephrotoxic agents #Diabetes Mellitus -A1C 13.3 -BGM & ISS q4h -continue levemir 30U at night #Hypertension: BP controlled -held BP meds #HIV: CV4 809, VL 80 on 07/04; on HAART -continue Tivicay and Descovy #Coronary Artery Disease: (s/p cardiac stent) -Will continue with ASA 81 daily -Appreciate cardiology recommendations #Hyperlipidemia - Triglycerides 1264, Cholesterol 278 on 07/04 -continue lipitor 10mg HS #Prophylaxis -DVT - lovenox -home PPI #FEN: -No standing fluids -Replete lytes as necessary in AM -Diabetic, low sodium diet #Disposition -continue to monitor on med-surg, follow up after surgery FULL code Visit type - Emergency Visit Emergency Visit: No - New Patient This patient is new to me today: No - Critical Care Critical Care patient: No
[2017-07-19] MEDS: POLYETHYLENE GLYCOL 3350 119 GM BTL PO SCH ×2 (11:14→22:51)
[2017-07-19] MEDS: GABAPENTIN 300 MG CAPSULE (FP) PO SCH ×2 (11:14→22:46)
[2017-07-19] MEDS: PANTOPRAZOLE 20 MG TABLET (FP) PO SCH ×2 (11:14→22:46)
[2017-07-19] MEDS: ASPIRIN COATED 81 MG TABLET.EC PO SCH (11:14)
[2017-07-19] MEDS ORDERED: ONDANSETRON 4 MG/2 ML VIAL IVPUSH PRN ×3 (15:43→17:27)
[2017-07-19] MEDS ORDERED: LACTATED RINGERS SOLUTION 1,000 ML IV SCH (15:45)
[2017-07-19] MEDS ORDERED: LIDOCAINE HCL 1%, 10 MG/ML (20ML VIAL) ONE (15:55)
[2017-07-19] MEDS ORDERED: MIDAZOLAM HCL 2 MG/2 ML SINGLE DOSE VIAL ONE (15:57)
[2017-07-19] MEDS ORDERED: PROPOFOL 20 ML ONE (15:59)
[2017-07-19] MEDS ORDERED: ceFAZolin SODIUM 1 GM VIAL IVPB ONE (16:00)
[2017-07-19] MEDS ORDERED: ceFAZolin SODIUM 1 GM VIAL ONE (16:12)
[2017-07-19] MEDS ORDERED: BACITRACIN 50,000 UNITS VIAL TP ONE (17:05)
--- NOTE | 2017-07-19 17:13 | OP ---
Operative Note - Note: Operative Date: 07/19/17 Pre-Operative Diagnosis: left calf fasciotomy wound Operation: Washout of left calf wound, placement of VAC dressing Post-Operative Diagnosis: Same as Pre-op Surgeon: Gabriel Guzmán Anesthesia: Fractional Estimated Blood Loss (mls): 50 Operative Report Dictated: Yes
[2017-07-19] MEDS ORDERED: PROMETHAZINE HCL 25 MG/1 ML VIAL IVPUSH PRN (17:27)
[2017-07-19] MEDS ORDERED: BISACODYL 5 MG TABLET.DR (FP) PO PRN (17:27)
[2017-07-19] MEDS ORDERED: ELECTROLYTE-148 SOLN 1,000 ML IV SCH (17:27)
[2017-07-19] MEDS ORDERED: LORATADINE 10 MG TABLET PO PRN (17:27)
--- NOTE | 2017-07-19 19:02 | PN ---
Teaching Attending Note Name of Resident: Carlos Glover ATTENDING PHYSICIAN STATEMENT I saw and evaluated the patient. I reviewed the resident's note and discussed the case with the resident. I agree with the resident's findings and plan as documented. SUBJECTIVE: Patient is back from the OR, doing well. comfortable with no acute distress. OBJECTIVE: Vital Signs Temperature 98.0 F 07/19/17 18:36 Pulse Rate 102 H 07/19/17 18:36 Respiratory Rate 16 07/19/17 18:36 Blood Pressure 108/76 07/19/17 18:36 O2 Sat by Pulse Oximetry (%) 99 07/19/17 18:43 CBCD WBC 6.4 K/mm3 (4.0-10.0) 07/19/17 06:40 RBC 3.66 M/mm3 (3.60-5.2) 07/19/17 06:40 Hgb 9.6 GM/dL (10.7-15.3) L 07/19/17 06:40 Hct 30.5 % (32.4-45.2) L 07/19/17 06:40 MCV 83.3 fl (80-96) 07/19/17 06:40 MCHC 31.6 g/dl (32.0-36.0) L 07/19/17 06:40 RDW 15.4 % (11.6-15.6) 07/19/17 06:40 Plt Count 272 K/MM3 (134-434) 07/19/17 06:40 MPV 8.9 fl (7.5-11.1) 07/19/17 06:40 CMP Sodium 137 mmol/L (136-145) 07/19/17 06:40 Potassium 5.0 mmol/L (3.5-5.1) 07/19/17 06:40 Chloride 102 mmol/L (98-107) 07/19/17 06:40 Carbon Dioxide 27 mmol/L (21-32) 07/19/17 06:40 Anion Gap 8 (8-16) 07/19/17 06:40 BUN 15 mg/dL (7-18) 07/19/17 06:40 Creatinine 1.2 mg/dL (0.55-1.02) H 07/19/17 06:40 Creat Clearance w eGFR > 60 (>60) 07/12/17 05:15 Random Glucose 165 mg/dL (74-106) H 07/19/17 06:40 Calcium 8.4 mg/dL (8.5-10.1) L 07/19/17 06:40 Total Bilirubin 0.5 mg/dL (0.2-1.0) 07/12/17 05:15 AST 241 U/L (15-37) H D 07/12/17 05:15 ALT 68 U/L (12-78) 07/12/17 05:15 Alkaline Phosphatase 112 U/L (45-117) 07/12/17 05:15 Total Protein 5.6 g/dl (6.4-8.2) L 07/12/17 05:15 Albumin 2.2 g/dl (3.4-5.0) L 07/12/17 05:15 CARDIAC ENZYMES Creatine Kinase 8263 IU/L (26-192) H 07/12/17 05:15 Troponin I < 0.02 ng/ml (0.00-0.05) 07/11/17 06:25 Current Medications Generic Name Dose Route Start Last Admin Trade Name Freq PRN Reason Stop Dose Admin Acetaminophen 325 mg 07/19/17 17:27 07/19/17 18:54 Tylenol - PO 325 mg Q4H PRN Administration PAIN Aspirin 81 mg 07/20/17 10:00 Ecotrin - PO DAILY [facility] Atorvastatin Calcium 10 mg 07/19/17 22:00 Lipitor - PO HS [facility] Bisacodyl 5 mg 07/19/17 17:27 Dulcolax - PO DAILY PRN CONSTIPATION Budesonide/Formoterol Fumarate 1 puff 07/19/17 22:00 Symbicort 160/4.5mcg - IH BID [facility] Enoxaparin Sodium 80 mg 07/19/17 22:00 Lovenox - SQ BID [facility] Escitalopram Oxalate 10 mg 07/20/17 10:00 Lexapro - PO DAILY [facility] Fentanyl 50 mcg 07/19/17 17:27 Sublimaze Injection - IVPUSH [id number] PRN PAIN-PACU ORDER X 4 DOSES ONLY Gabapentin 600 mg 07/19/17 22:00 Neurontin - PO BID [facility] Hydromorphone HCl 0.5 mg 07/19/17 17:46 Dilaudid Injection - IVPB Q6H PRN PAIN OR FEVER Parenteral Electrolytes 1,000 mls @ 125 mls/hr 07/19/17 17:27 Plasma-Lyte 148 - IV ASDIR JENNIFER Insulin Aspart 1 vial 07/19/17 22:00 Novolog Vial Sliding Scale - SQ ACHS JENNIFER Protocol Insulin Detemir 15 units 07/19/17 22:00 Levemir Vial SQ HS JENNIFER Loratadine 10 mg 07/19/17 17:27 Claritin - PO DAILY PRN allergies Mirtazapine 15 mg 07/19/17 22:00 Remeron - PO HS JENNIFER Montelukast Sodium 10 mg 07/19/17 22:00 Singulair - PO HS JENNIFER Non-Formulary Medication 50 mg 07/19/17 22:00 Dolutegravir Sodium PO HS JENNIFER Non-Formulary Medication 1 each 07/19/17 22:00 Emtricitabine/Tenofov Alafenam [Descovy 200-25 Mg Tablet (Nf)] PO HS JENNIFER Ondansetron HCl 4 mg 07/19/17 17:27 Zofran Injection IVPUSH Q6H PRN NAUSEA AND/OR VOMITING Ondansetron HCl 4 mg 07/19/17 17:27 Zofran Injection IVPUSH Q6H PRN NAUSEA AND/OR VOMITING Oxycodone HCl 10 mg 07/19/17 17:27 07/19/17 18:53 Roxicodone - PO 10 mg Q4H PRN Administration PAIN LEVEL 6-10 Pantoprazole Sodium 20 mg 07/19/17 22:00 Protonix - PO BID [facility] Polyethylene Glycol 17 gm 07/19/17 22:00 Miralax (For Daily Use) - PO BID [facility] Promethazine HCl 12.5 mg 07/19/17 17:27 Phenergan Injection - IVPUSH Q6H PRN NAUSEA-FOR RESCUE AFTER 15 MIN Home Medications Medication Instructions Recorded Gabapentin [Neurontin] 600 mg PO BID 07/06/16 Magnesium 200 mg PO DAILY PRN 07/06/16 Dolutegravir Sodium [Tivicay] 50 mg PO DAILY #30 tablet 04/04/17 Emtricitabine/Tenofov Alafenam 1 each PO HS #30 tablet 04/04/17 [Descovy 200-25 mg Tablet (Nf)] Lisinopril 5 mg PO HS #30 tablet 04/04/17 Loratadine [Claritin -] 10 mg PO DAILY PRN #30 tablet 04/04/17 Montelukast Na [Singulair -] 10 mg PO HS 04/26/17 Clopidogrel Bisulfate [Plavix -] 75 mg PO DAILY #30 tablet 04/27/17 Aspirin [Aspirin EC] 81 mg PO DAILY 05/02/17 Insulin Glargine,Hum.rec.anlog 35 unit SQ HS 05/02/17 [Toujeo Solostar] Insulin Lispro [Humalog Kwikpen 15 unit SQ TID #7 ea 05/02/17 U-200] Omeprazole 20 mg PO BID #60 tablet. 06/01/17 Budesonide/Formeterol Fumarate 1 puff IH BID 07/04/17 [SYMBICORT 160/4.5mcg -] Clonazepam [Klonopin -] 0.5 mg PO TID #90 tablet MDD 1.5mg 07/04/17 Escitalopram Oxalate [Lexapro -] 20 mg PO HS #30 tablet 07/04/17 Mirtazapine [Remeron -] 30 mg PO HS #30 tablet 07/04/17 Olopatadine HCl [Pataday] 1 drop OP DAILY #2.5 ml 07/04/17 Oxybutynin Chloride [Oxybutynin 10 mg PO DAILY 07/04/17 Chloride ER] Zolpidem Tartrate [Ambien] 5 mg PO HS #30 tab MDD 1 07/04/17 Pravastatin Sodium [Pravachol (Nf)] 40 mg PO HS 07/09/17 PE: Lungs : CTAB CV: RRR, no MRG Ext: palpable pulses, positive for wound vac s/p fasciatomy of LLE ASSESSMENT AND PLAN: Patient is 57 y/o lady with h/o CAD, s/p stenting in 2014, HLP, HTN, presented with b/l LE pain , and was found to have acute ischemia of LEs, then developed compartment syndrome after reperfusion of Left lower extremity. #Acute ischemia of LLEs s/p SFA stent 07/09, with reperfusion of LLE , developed compartment syndrome of Left Lower extremity s/p fascietomy 07/11 . On Lovenox BID sq, s/p wash out of the wound today by , on Wound Vac Now . continue Lovenox 80mh bid . Eliquis to give upon discharge ( covered by her insurance ). cont oxycodone , Duration of AC for life # H/o CAD, s/p stenting : on Aspirin continue # DM : cont levemir will give only 15 units tonight and will continue with 30 units afterward . # psych meds are adjusted by DVT Px: Lovenox 80mg bid
[2017-07-19] MEDS: HYDROmorphone HCL CARPU-JECT 2 MG/1 ML DISP.SYRIN IVPB PRN (19:58)
[2017-07-19] MEDS ORDERED: PATIENT'S OWN MEDICATION (NON-FORMULARY) (Emtricitabine/Tenofov Alafenam [Descovy 200-25 M PO SCH (22:00)
[2017-07-19] MEDS ORDERED: MIRTAZAPINE 15 MG TABLET (FP) PO SCH (22:00)
[2017-07-19] MEDS ORDERED: PATIENT'S OWN MEDICATION (NON-FORMULARY) (Dolutegravir Sodium 50 MG) PO SCH (22:00)
[2017-07-19] MEDS ORDERED: ATORVASTATIN CA 10 MG TABLET (FP) PO SCH (22:00)
[2017-07-19] MEDS ORDERED: INSULIN DETEMIR 100 UNITS/ML MDV SQ SCH (22:00)
[2017-07-19] MEDS ORDERED: MONTELUKAST NA 10 MG TABLET PO SCH (22:00)
[2017-07-19] MEDS: ENOXAPARIN NA (PORCINE) 80 MG/0.8 ML DISP.SYRIN SQ SCH (22:47)
[2017-07-20] MEDS: HYDROmorphone HCL CARPU-JECT 2 MG/1 ML DISP.SYRIN IVPB PRN (02:29)
[2017-07-20] MEDS: oxyCODONE HCL 5 MG TABLET PO PRN ×3 (06:23→16:29)
[2017-07-20] MEDS: ACETAMINOPHEN 325 MG TABLET (FP) PO PRN ×2 (06:24→12:43)
--- NOTE | 2017-07-20 08:42 | CONS ---
PHYSICAL MEDICINE REHABILITATION CONSULTATION DATE OF CONSULTATION: 07/20/2017 REFERRING PHYSICIAN: Gabriel Guzmán DO HISTORY OF PRESENT ILLNESS: Patient is a 57-year-old woman with past medical history of HIV, diabetes, coronary artery disease status post stent in 2014, bilateral superficial artery stents in April and May 2017, who was brought in with bilateral lower extremity pain, swelling, and inability to ambulate. Patient subsequently underwent evaluation and was found to have left popliteal occlusion. Patient was hospitalized and treated medically. She was taken to the operating room twice, undergoing surgery performed by Dr. Gabriel Guzmán, including left calf fasciotomy, washout, and placement of a VAC dressing. Patient has inability to dorsiflex the left foot, complains of numbness, tingling in both lower extremities but mainly on the left side and also loss of balance. Patient's most recent blood work showed a stable hemoglobin at 9.6, hematocrit 30.5, normal WBC at 6.4, and platelet count of 272 as of yesterday's blood work. Chemistry was also last done yesterday. Creatinine was slightly elevated at 1.2. Otherwise, chemistry fairly unremarkable. Her calcium level is low at 8.4, but this corrects for low albumin. Last taken July 12 was 2.2. Patient is ranging her left ankle frequently and, again, has a wound VAC applied to the left lower extremity with multiple open areas from fasciotomy done July 19. She noted that even prior to the surgery she lost her balance and was starting to use a straight cane recently. PAST MEDICAL AND SURGICAL HISTORY: As above. Also, hyperlipidemia, hypertension, nephrolithiasis, gastroesophageal reflux disease, peptic ulcer disease, anxiety , left total knee replacement in 2015, PTCA April 2015, right Achilles tendon repair , and cholecystectomy. SOCIAL HISTORY: Lives alone in an apartment. There is an elevator for access. Premorbidly, again, she had started to use a cane due to loss of balance. She is a former tobacco user, just recently quitting. She has about a 11-[id number] history and denies any alcohol intake. FAMILY HISTORY: Significant for arterial and venous disorders including blood clots. Mother with diabetes, father heart disease. ALLERGIES: None noted per the medical record. REVIEW OF SYSTEMS: No dizziness, lightheadedness. No chest pain or shortness of breath. No fever or chills. No bowel/bladder incontinence or retention or change. Again, she has baseline tingling in her feet and loss of balance. She also has weakness in her right shoulder from a prior laceration around the right elbow which required surgery or stitches, and she continues to have weakness in that right arm. She has baseline tingling also in her toes, which kind of comes and goes, but new numbness and inability to dorsiflex the left foot. Also, difficulty with her mobility due to the wound VAC at this point. She is unsure if she can ambulate. PHYSICAL EXAMINATION: General: Patient is a petite woman who is seen lying in bed. She is in no acute distress. She is cooperative with examination. Seems to have good insight into her medical conditions. HEENT: She is normocephalic and atraumatic. Extraocular muscles appear intact. Neck: Supple. Extremities: She has edema throughout the left lower extremity with at least 2 fasciotomy scars with wound VAC applied. She has no edema or calf tenderness in the right lower extremity. No other wounds noted. She has a scar over the left knee, which is well healed, as well as over the right anterior elbow. Neuromuscular: She is awake, alert, oriented x3. Cranial nerves are grossly intact. She has some limitations in range and strength in the right shoulder actively, but passively, she seems to have full range in the right elbow and right shoulder with only 3+ to 4-/5 strength within her range of motion in the shoulder girdle and elbow flexors. The left side has 5/5 strength. She has good senior medical billing specialist strength bilaterally. Normal sensation to light touch and pinprick in the upper limbs. In the lower limbs, she has diminished sensation distally, both dorsally and on the plantar surface of the foot and more proximal ankle. She has antigravity strength in the hip girdle and knee, but only 1/5 in dorsiflexion and 1-2/5 in plantar flexion. Right lower extremity has 5/5 strength except for the hip girdle which is 4/5 and normal sensation to pinprick in the right lower extremity. Reflexes are symmetric in the upper extremities. Toes downgoing bilaterally in the lower extremities. Unable to assess ambulation, not clear as of this time and has wound VAC. Will need a walker when cleared. OVERALL IMPRESSION: 1. Deficits in mobility and activities of daily living. 2. Left distal weakness including foot drop. 3. Peripheral arterial disease with a history of stents and fasciotomy, originally done on July 13 for compartment syndrome and status post washout and wound vacuum assisted closure applied on July 19. 4. Underlying peripheral neuropathy, possibly due to human immunodeficiency virus and/or diabetes. 5. History of a left total knee replacement. 6. Deconditioning. 7. History of coronary artery disease status post stent. 8. History of hypertension. 9. Right proximal weakness with a history of laceration which is well healed, rule out underlying rotator cuff pathology. 10. Anemia, stable. 11. Increased risk for deep venous thrombosis due to immobility. 12. Other past medical history as above. PLAN/SUGGESTION: 1. At this point, with a wound VAC and fasciotomy areas, it may be difficult to get a dorsiflexion brace, but she may well eventually need a left ankle/foot orthosis which could be given to her as an outpatient or a multi-podus boot or a walking boot when she is receiving rehabilitation and the wound VAC is not applied. 2. In the meantime, patient will continue passive range of motion. 3. Physical therapy for active assist in passive range of motion to the left lower extremity, strengthening of the proximal lower extremities, bed mobility, and transfers as well as gait when cleared. Would keep nonweightbearing until cleared by Surgery. 4. Elevation of the left lower extremity. 5. Patient is on Lovenox. No further DVT prophylaxis is needed. 6. Bowel regimen. Monitor for constipation. 7. Pain control. Patient is on Neurontin and Tylenol. 8. Case Management evaluation. Will need short-term rehab in a half-way facility once cleared. Thank you for this referral. CHAUNCEY KELESY M.D. [id number]
[2017-07-20 08:49] LABS: BASO % 0.2 % (0-2.0); EOS % 1.3 % (0-4.5); HEMATOCRIT 27.3 % (32.4-45.2); HEMOGLOBIN 8.5 GM/dL (10.7-15.3); MCH 26.1 pg (25.7-33.7); MCHC 31.1 g/dl (32.0-36.0); MEAN CELL VOLUME 83.7 fl (80-96); MEAN PLT VOLUME 8.4 fl (7.5-11.1); MONO % 8.6 % (3.8-10.2); NEUT % 64.9 % (42.8-82.8); PLATELET COUNT 274 K/MM3 (134-434); RBC 3.26 M/mm3 (3.60-5.2); RDW 15.8 % (11.6-15.6); WHITE BLOOD COUNT 6.9 K/mm3 (4.0-10.0)
[2017-07-20 09:04] LABS: ALBUMIN 2.4 g/dl (3.4-5.0); ANION GAP 8 (8-16); BILIRUBIN,TOTAL 0.3 mg/dL (0.2-1.0); BLOOD UREA NITROGEN 14 mg/dL (7-18); CALCIUM 7.6 mg/dL (8.5-10.1); CHLORIDE 97 mmol/L (98-107); CO2 28 mmol/L (21-32); CREATININE 1.1 mg/dL (0.55-1.02); GLUCOSE,RANDOM 142 mg/dL (74-106); POTASSIUM 4.8 mmol/L (3.5-5.1); SGOT/AST 47 U/L (15-37); SGPT/ALT 36 U/L (12-78); SODIUM 133 mmol/L (136-145)
[2017-07-20 09:05] LABS: ALK PHOS 96 U/L (45-117)
[2017-07-20] MEDS ORDERED: PT OWN MED DRAWER 7, Y5N ONE ×2 (09:56→10:47)
[2017-07-20] MEDS: GABAPENTIN 300 MG CAPSULE (FP) PO SCH (10:00)
[2017-07-20] MEDS ORDERED: ESCITALOPRAM OXALATE 10 MG TABLET (FP) PO SCH (10:00)
[2017-07-20] MEDS ORDERED: COLLAGENASE CLOSTRIDIUM HIST. 30 GRAMS TUBE TP SCH (10:00)
[2017-07-20] MEDS ORDERED: ASPIRIN COATED 81 MG TABLET.EC PO SCH (10:00)
[2017-07-20] MEDS: ENOXAPARIN NA (PORCINE) 80 MG/0.8 ML DISP.SYRIN SQ SCH (10:01)
[2017-07-20] MEDS: PANTOPRAZOLE 20 MG TABLET (FP) PO SCH (10:02)
[2017-07-20] MEDS: BUDESONIDE/FORMETEROL FUMARATE 160/4.5 mcg INHALER IH SCH (10:03)
--- NOTE | 2017-07-20 10:40 | PN ---
Progress Note (short form) - Note Progress Note: Post op day#1.S/P Leflt leg wound washout under GA uneventful.Patient stable.No any anesthesia related problem.Patient DC from the anesthesia care.
--- NOTE | 2017-07-20 11:03 | PN ---
Teaching Attending Note Name of Resident: Carlos Glover ATTENDING PHYSICIAN STATEMENT I saw and evaluated the patient. I reviewed the resident's note and discussed the case with the resident. I agree with the resident's findings and plan as documented. SUBJECTIVE: Wound vac in place , patient is feeling better. OBJECTIVE: Vital Signs Temperature 98.7 F 07/20/17 05:47 Pulse Rate 97 H 07/20/17 05:47 Respiratory Rate 18 07/20/17 05:47 Blood Pressure 108/72 07/20/17 05:47 O2 Sat by Pulse Oximetry (%) 95 07/19/17 21:00 CBCD WBC 6.9 K/mm3 (4.0-10.0) 07/20/17 08:15 RBC 3.26 M/mm3 (3.60-5.2) L 07/20/17 08:15 Hgb 8.5 GM/dL (10.7-15.3) L D 07/20/17 08:15 Hct 27.3 % (32.4-45.2) L 07/20/17 08:15 MCV 83.7 fl (80-96) 07/20/17 08:15 MCHC 31.1 g/dl (32.0-36.0) L 07/20/17 08:15 RDW 15.8 % (11.6-15.6) H 07/20/17 08:15 Plt Count 274 K/MM3 (134-434) 07/20/17 08:15 MPV 8.4 fl (7.5-11.1) 07/20/17 08:15 CMP Sodium 133 mmol/L (136-145) L 07/20/17 08:15 Potassium 4.8 mmol/L (3.5-5.1) 07/20/17 08:15 Chloride 97 mmol/L (98-107) L 07/20/17 08:15 Carbon Dioxide 28 mmol/L (21-32) 07/20/17 08:15 Anion Gap 8 (8-16) 07/20/17 08:15 BUN 14 mg/dL (7-18) 07/20/17 08:15 Creatinine 1.1 mg/dL (0.55-1.02) H 07/20/17 08:15 Creat Clearance w eGFR 51.57 (>60) 01/19/18 08:15 Random Glucose 142 mg/dL (74-106) H 07/20/17 08:15 Calcium 7.6 mg/dL (8.5-10.1) L 07/20/17 08:15 Total Bilirubin 0.3 mg/dL (0.2-1.0) D 07/20/17 08:15 AST 47 U/L (15-37) H 07/20/17 08:15 ALT 36 U/L (12-78) 07/20/17 08:15 Alkaline Phosphatase 96 U/L (45-117) 07/20/17 08:15 Total Protein 6.0 g/dl (6.4-8.2) L 07/20/17 08:15 Albumin 2.4 g/dl (3.4-5.0) L 07/20/17 08:15 CARDIAC ENZYMES Creatine Kinase 8263 IU/L (26-192) H 07/12/17 05:15 Troponin I < 0.02 ng/ml (0.00-0.05) 07/11/17 06:25 Current Medications Generic Name Dose Route Start Last Admin Trade Name Freq PRN Reason Stop Dose Admin Acetaminophen 325 mg 07/19/17 17:27 07/20/17 06:24 Tylenol - PO 325 mg Q4H PRN Administration PAIN Aspirin 81 mg 07/20/17 10:00 07/20/17 10:00 Ecotrin - PO 81 mg DAILY JENNIFER Administration Atorvastatin Calcium 10 mg 07/19/17 22:00 07/19/17 22:46 Lipitor - PO 10 mg HS JENNIFER Administration Bisacodyl 5 mg 07/19/17 17:27 Dulcolax - PO DAILY PRN CONSTIPATION Budesonide/Formoterol Fumarate 1 puff 07/19/17 22:00 07/20/17 10:03 Symbicort 160/4.5mcg - IH 1 puff BID JENNIFER Administration Collagenase 1 applic 07/20/17 10:00 Santyl - TP DAILY JENNIFER Enoxaparin Sodium 80 mg 07/19/17 22:00 07/20/17 10:01 Lovenox - SQ 80 mg BID JENNIFER Administration Escitalopram Oxalate 10 mg 07/20/17 10:00 07/20/17 10:00 Lexapro - PO 10 mg DAILY JENNIFER Administration Fentanyl 50 mcg 07/19/17 17:27 Sublimaze Injection - IVPUSH [id number] PRN PAIN-PACU ORDER X 4 DOSES ONLY Gabapentin 600 mg 07/19/17 22:00 07/20/17 10:00 Neurontin - PO 600 mg BID JENNIFER Administration Hydromorphone HCl 0.5 mg 07/19/17 17:46 07/20/17 02:29 Dilaudid Injection - IVPB 0.5 mg Q6H PRN Administration PAIN OR FEVER Parenteral Electrolytes 1,000 mls @ 125 mls/hr 07/19/17 17:27 07/20/17 03:00 Plasma-Lyte 148 - IV 125 mls/hr ASDIR JENNIFER Administration Insulin Aspart 1 vial 07/19/17 22:00 07/19/17 22:48 Novolog Vial Sliding Scale - SQ 4 units ACHS JENNIFER Administration Protocol Insulin Detemir 15 units 07/19/17 22:00 07/19/17 22:49 Levemir Vial SQ 15 units HS JENNIFER Administration Loratadine 10 mg 07/19/17 17:27 Claritin - PO DAILY PRN allergies Mirtazapine 15 mg 07/19/17 22:00 07/19/17 22:47 Remeron - PO 15 mg HS JENNIFER Administration Montelukast Sodium 10 mg 07/19/17 22:00 07/19/17 22:47 Singulair - PO 10 mg HS JENNIFER Administration Non-Formulary Medication 50 mg 07/19/17 22:00 Dolutegravir Sodium PO HS JENNIFER Non-Formulary Medication 1 each 07/19/17 22:00 Emtricitabine/Tenofov Alafenam [Descovy 200-25 Mg Tablet (Nf)] PO HS JENNIFER Ondansetron HCl 4 mg 07/19/17 17:27 Zofran Injection IVPUSH Q6H PRN NAUSEA AND/OR VOMITING Ondansetron HCl 4 mg 07/19/17 17:27 Zofran Injection IVPUSH Q6H PRN NAUSEA AND/OR VOMITING Oxycodone HCl 10 mg 07/19/17 17:27 07/20/17 06:23 Roxicodone - PO 10 mg Q4H PRN Administration PAIN LEVEL 6-10 Pantoprazole Sodium 20 mg 07/19/17 22:00 07/20/17 10:02 Protonix - PO 20 mg BID JENNIFER Administration Polyethylene Glycol 17 gm 07/19/17 22:00 07/19/17 22:51 Miralax (For Daily Use) - PO 17 grams BID JENNIFER Administration Promethazine HCl 12.5 mg 07/19/17 17:27 Phenergan Injection - IVPUSH Q6H PRN NAUSEA-FOR RESCUE AFTER 15 MIN Home Medications Medication Instructions Recorded Gabapentin [Neurontin] 600 mg PO BID 07/06/16 Magnesium 200 mg PO DAILY PRN 07/06/16 Dolutegravir Sodium [Tivicay] 50 mg PO DAILY #30 tablet 04/04/17 Emtricitabine/Tenofov Alafenam 1 each PO HS #30 tablet 04/04/17 [Descovy 200-25 mg Tablet (Nf)] Lisinopril 5 mg PO HS #30 tablet 04/04/17 Loratadine [Claritin -] 10 mg PO DAILY PRN #30 tablet 04/04/17 Montelukast Na [Singulair -] 10 mg PO HS 04/26/17 Clopidogrel Bisulfate [Plavix -] 75 mg PO DAILY #30 tablet 04/27/17 Aspirin [Aspirin EC] 81 mg PO DAILY 05/02/17 Insulin Glargine,Hum.rec.anlog 35 unit SQ HS 05/02/17 [Toujeo Solostar] Insulin Lispro [Humalog Kwikpen 15 unit SQ TID #7 ea 05/02/17 U-200] Omeprazole 20 mg PO BID #60 tablet. 06/01/17 Budesonide/Formeterol Fumarate 1 puff IH BID 07/04/17 [SYMBICORT 160/4.5mcg -] Clonazepam [Klonopin -] 0.5 mg PO TID #90 tablet MDD 1.5mg 07/04/17 Escitalopram Oxalate [Lexapro -] 20 mg PO HS #30 tablet 07/04/17 Mirtazapine [Remeron -] 30 mg PO HS #30 tablet 07/04/17 Olopatadine HCl [Pataday] 1 drop OP DAILY #2.5 ml 07/04/17 Oxybutynin Chloride [Oxybutynin 10 mg PO DAILY 07/04/17 Chloride ER] Zolpidem Tartrate [Ambien] 5 mg PO HS #30 tab MDD 1 07/04/17 Pravastatin Sodium [Pravachol -] 40 mg PO HS 07/09/17 Enoxaparin [Lovenox -] 80 mg SQ BID #60 disp.syrin 07/20/17 Oxycodone HCl [Roxicodone -] 10 mg PO Q4H PRN #25 tablet MDD 30 07/20/17 PE: Lungs : CTAB CV: RRR, no MRG Ext: palpable pulses, positive for wound vac s/p fasciatomy of LLE rest of PE per resident's note ASSESSMENT AND PLAN: Patient is 57 y/o lady with h/o CAD, s/p stenting in 2014, HLP, HTN, presented with b/l LE pain , and was found to have acute ischemia of LEs, then developed compartment syndrome after reperfusion of Left lower extremity. # POD # 9 left calf fasciotomy on 07/11 due to developing Compartment syndrome due to having ischemia of LLEs s/p SFA stent 07/09, with reperfusion of LLE , Surgeon , s/p wash out of the wound 07/19 by , on Wound Vac Now . continue Lovenox 80mh bid for now, going to rehab today, discussed with to continue Lovenox for now until he sees the patient as an outpatient in a week period. As per , patient to see him as an outpatient in a week period. Eliquis to be given by in a week period.( Eliquis is covered by her insurance ). cont oxycodone , Duration of AC for life # H/o CAD, s/p stenting : on Aspirin continue # DM : cont levemir will give only 30 qhs. # psych meds are adjusted by , consult are appreciated. DVT Px: Lovenox 80mg bid
[2017-07-20] MEDS: POLYETHYLENE GLYCOL 3350 119 GM BTL PO SCH (11:30)
[2017-07-20] MEDS ORDERED: INSULIN (NOVOLOG) ASPART 100 UNITS/ML 10ML VIAL ONE (11:31)
[2017-07-20] MEDS: INSULIN SLIDING SCALE (NOVOLOG) 1 VIAL SQ SCH ×3 (11:34→16:54)
[2017-07-20 13:04] VITALS: BP 100/54; PULSE 92
[2017-07-20 13:56] VITALS: TEMP 99.4
--- NOTE | 2017-07-20 15:28 | DS ---
Physical Exam: SUBJECTIVE: Patient seen and examined at bedside. Pt is s/p washout and wound vac placement on fasciotomy incisions. Denies any pain. No chest pain, SOB, n/v/ d. OBJECTIVE: Vital Signs Period Temp Pulse Resp BP Sys/Cota Pulse Ox Last 24 Hr 97.7 F-99.5 F 66-106 16-20 100-127/54-82 95-99 PHYSICAL EXAM GENERAL: The patient is awake, alert, and fully oriented, in no acute distress. HEAD: Normal with no signs of trauma. LUNGS: Breath sounds equal, clear to auscultation bilaterally, no wheezes, no crackles, no accessory muscle use. HEART: Regular rate and rhythm, S1, S2 without murmur, rub or gallop. ABDOMEN: Soft, nontender, nondistended, normoactive bowel sounds, no guarding, no rebound, no hepatosplenomegaly, no masses. EXTREMITIES: 1+ DP/PT pulse on LLE, 2+ pulses in RLE, extremities both warm. There are clean incisions on the L leg both on the lateral and medial aspect. Wound vacs in place draining NEUROLOGICAL: Cranial nerves II through XII grossly intact. Normal speech, gait not observed. PSYCH: Normal mood, normal affect. SKIN: Warm, dry, normal turgor, no rashes or lesions noted LABS Laboratory Results - last 24 hr 07/19/17 07/19/17 07/20/17 17:50 22:44 06:22 WBC RBC Hgb Hct MCV MCH MCHC RDW Plt Count MPV Neutrophils % Lymphocytes % Monocytes % Eosinophils % Basophils % Sodium Potassium Chloride Carbon Dioxide Anion Gap BUN Creatinine Creat Clearance w eGFR POC Glucometer 149 236 167 Random Glucose Calcium Total Bilirubin AST ALT Alkaline Phosphatase Total Protein Albumin 07/20/17 07/20/17 07/20/17 08:15 08:15 11:27 WBC 6.9 RBC 3.26 L Hgb 8.5 L D Hct 27.3 L MCV 83.7 MCH 26.1 MCHC 31.1 L RDW 15.8 H Plt Count 274 MPV 8.4 Neutrophils % 64.9 Lymphocytes % 25.0 D Monocytes % 8.6 Eosinophils % 1.3 D Basophils % 0.2 Sodium 133 L Potassium 4.8 Chloride 97 L Carbon Dioxide 28 Anion Gap 8 BUN 14 Creatinine 1.1 H Creat Clearance w eGFR 51.57 POC Glucometer 173 Random Glucose 142 H Calcium 7.6 L Total Bilirubin 0.3 D AST 47 H ALT 36 Alkaline Phosphatase 96 Total Protein 6.0 L Albumin 2.4 L HOSPITAL COURSE: Date of Admission:07/09/17 57 year old female with PMH HIV, DM2, HTN, CAD (s/p cardiac stent 04/15), BL SFA stents (04/17, 05/18), presented to the hospital with b/l leg swelling and pain for 2 days. Patient was worked up and was found to have b/l ischemic occlusions in the lower extremities likely due to medication non-compliance ( Plavix). Patient underwent LLE angiogram and had SFA, popliteal and tibial angioplastic and SFA stent placement with TPA infusion. Patient was discovered to have compartment syndrome and was taken back to the OR for a fasciotomy procedure on her LLE on the lateral and medial aspects of her leg. The wounds were left open for several days, appearing clean and uninfected. Patient returned to the OR for a washout and wound vac placement on 07/19/17. Her clinical condition remained stable throughout the hospital course. She was discharged to a long term facility on 07/20/18 with is instructions to place a KCA wound vac and change the dressing 3 days a week and to follow with Dr. Gabriel Guzmán within 1 week of discharge. Date of Discharge: 07/20/17 Minutes to complete discharge: 35 Discharge Summary Reason For Visit: OCCLUSION OF LEFT POPLITEAL ARTERY Current Active Problems Compartment syndrome of left lower extremity (Acute) Ischemia of both lower extremities (Acute) Popliteal artery occlusion, left (Acute) Rhabdomyolysis (Acute) Condition: Good - Instructions Diet, Activity, Other Instructions: You were admitted to the hospital for the treatment of left leg ischemia (lack of blood flow) and compartment syndrome of left leg. You had left leg angioplasty and stent placement. You developed compartment syndrome and needed to undergo a left leg fasciotomy procedure to relieve pressure in your leg You had a wound-vac placed on your leg to allow the wound to heal from the inside out on its own. Medical Recommendations: -It is important that you go to rehab -You need to have a KCI wound vac applied to your L leg and changed every 3 days (either sunday/sunday/sunday) or (Sunday//sunday) with a suction pressure of 125mmHg -You need the rehab center to order you a Multi Podus boot to help you ambulate -Please continue Lovenox 80mg subcutaneously twice a day -Please see Dr. Gabriel Guzmán in the hospital 1 week after discharge -> (Sunday, Jul 27) Please call as soon as you are discharged to make the appointment. -Continue your home medications If you Experience severe pain or swelling in your leg, experience fevers, chills , chest pain or shortness of breath, please return to the emergency department. APPOINTMENT AT 07/27/17 NEXT SUNDAY AT [facility] [phone] Referrals: Jossie Jimenes NP [Primary Care Provider] - Gabriel Guzmán MD [Staff Physician] - 1 Week Disposition: RETIREMENT FACILITY - Home Medications Comprehensive Discharge Medication List: Ambulatory Orders Gabapentin [Neurontin] 600 mg PO BID 07/06/16 Magnesium 200 mg PO DAILY PRN 07/06/16 Dolutegravir Sodium [Tivicay] 50 mg PO DAILY #30 tablet 04/04/17 Emtricitabine/Tenofov Alafenam [Descovy 200-25 mg Tablet (Nf)] 1 each PO HS #30 tablet 04/04/17 Lisinopril 5 mg PO HS #30 tablet 04/04/17 Loratadine [Claritin -] 10 mg PO DAILY PRN #30 tablet 04/04/17 Montelukast Na [Singulair -] 10 mg PO HS 04/26/17 Clopidogrel Bisulfate [Plavix -] 75 mg PO DAILY #30 tablet 04/27/17 Aspirin [Aspirin EC] 81 mg PO DAILY 05/02/17 Insulin Glargine,Hum.rec.anlog [Toujeo Solostar] 35 unit SQ HS 05/02/17 Insulin Lispro [Humalog Kwikpen U-200] 15 unit SQ TID #7 ea 05/02/17 Omeprazole 20 mg PO BID #60 tablet. 06/01/17 Budesonide/Formeterol Fumarate [SYMBICORT 160/4.5mcg -] 1 puff IH BID 07/04/17 Clonazepam [Klonopin -] 0.5 mg PO TID #90 tablet MDD 1.5mg 07/04/17 Escitalopram Oxalate [Lexapro -] 20 mg PO HS #30 tablet 07/04/17 Mirtazapine [Remeron -] 30 mg PO HS #30 tablet 07/04/17 Olopatadine HCl [Pataday] 1 drop OP DAILY #2.5 ml 07/04/17 Oxybutynin Chloride [Oxybutynin Chloride ER] 10 mg PO DAILY 07/04/17 Zolpidem Tartrate [Ambien] 5 mg PO HS #30 tab MDD 1 07/04/17 Pravastatin Sodium [Pravachol -] 40 mg PO HS 07/09/17 Enoxaparin [Lovenox -] 80 mg SQ BID #60 disp.syrin 07/20/17 Oxycodone HCl [Roxicodone -] 10 mg PO Q4H PRN #25 tablet MDD 30 07/20/17 This patient is new to me today: No Emergency Visit: No Critical Care patient: No - Discharge Referral Referred to [facility] No
--- NOTE | 2017-07-24 14:06 | OP ---
DATE OF OPERATION: 07/19/2017 PREOPERATIVE DIAGNOSIS: Open left calf wound status post fasciotomy. POSTOPERATIVE DIAGNOSIS: Open left calf wound status post fasciotomy. PROCEDURE: Washout of left calf, excisional debridement of left calf muscle, and placement of vacuum assisted closure dressing. SURGEON: Gabriel Wilder DO ANESTHESIA: Fractional. BLOOD LOSS: 20 mL INDICATION FOR PROCEDURE: The patient is a 57-year-old female who had left lower extremity ischemia, who then developed compartment syndrome in her left calf and needed fasciotomy. She has 2 fasciotomy incisions on the medial and lateral side of her calf with muscle protruding. It was decided that we will see if we can close the calf. If not, she would need a VAC dressing placement and she needed debridement of the calf muscle before the VAC dressing is placed. The patient was consented for the procedure, understanding all risks, benefits, and alternatives and was then taken to the operating room. DESCRIPTION OF PROCEDURE: Once in the operating suite, was laid on the operating table in supine manner, and the area of the left calf was prepped and draped in a sterile surgical manner. We then went ahead and undermined the skin and subcutaneous tissue around the muscle just to see if the skin would come together, but the muscle was still protruding, and the left calf is still swollen. We then took a curette and debrided the lateral calf muscle to get it down to healthy bleeding muscle. We then went ahead and washed out both incisions using pulse irrigation. We then went ahead and took a large foam dressing and cut the dressing to be placed on both incisions, and then, the VAC dressing was placed to create a good seal. We then connected the VAC machine for a negative pressure which was initiated. The patient tolerated this procedure with no complication. Total blood loss: 30 mL. Patient was transferred to the PACU in stable condition with the VAC operational. GABRIEL WILDER DO SUPERVISOR FRAME SAMPLE AND PATTERN/[id number]
== END 2017-07-20 19:17 | DRG 253 ==
LOC: JER 00:12 → JERBED 05:07 → JICU 21:04 → J6S 07-12 16:40
PROVIDERS: ADMIT Internal Medicine; ATTEND Internal Medicine
PROC: 047S3Z1 Dilation of Left Posterior Tibial Artery using Drug-Coated Balloon, Percutaneous Approach (ICD-10-PCS; 2017-07-09)
PROC: 047N3ZZ Dilation of Left Popliteal Artery, Percutaneous Approach (ICD-10-PCS; 2017-07-09)
PROC: B41DYZZ Fluoroscopy of Aorta and Bilateral Lower Extremity Arteries using Other Contrast (ICD-10-PCS; 2017-07-09)
PROC: B41GYZZ Fluoroscopy of Left Lower Extremity Arteries using Other Contrast (ICD-10-PCS; 2017-07-09)
PROC: 3E033GC Introduction of Other Therapeutic Substance into Peripheral Vein, Percutaneous Approach (ICD-10-PCS; 2017-07-09)
PROC: 047L3D1 Dilation of Left Femoral Artery with Intraluminal Device, using Drug-Coated Balloon, Percutaneous Approach (ICD-10-PCS; principal; 2017-07-09 12:00)
PROC: B41GYZZ Fluoroscopy of Left Lower Extremity Arteries using Other Contrast (ICD-10-PCS; 2017-07-10)
PROC: 0KNT0ZZ Release Left Lower Leg Muscle, Open Approach (ICD-10-PCS; 2017-07-11)
PROC: 0KDT0ZZ Extraction of Left Lower Leg Muscle, Open Approach (ICD-10-PCS; 2017-07-19)
PROC: 2W1MX6Z Compression of Left Lower Extremity using Pressure Dressing (ICD-10-PCS; 2017-07-19)
DX: I74.3 Embolism and thrombosis of arteries of the lower extremities (principal); N17.9 Acute kidney failure, unspecified; M79.A22 Nontraumatic compartment syndrome of left lower extremity; M62.82 Rhabdomyolysis; I99.8 Other disorder of circulatory system; Z87.891 Personal history of nicotine dependence; I25.10 Atherosclerotic heart disease of native coronary artery without angina pectoris; Z21 Asymptomatic human immunodeficiency virus [HIV] infection status; I10 Essential (primary) hypertension; Z79.4 Long term (current) use of insulin; F41.9 Anxiety disorder, unspecified; K21.9 Gastro-esophageal reflux disease without esophagitis; Z91.14 Patient's other noncompliance with medication regimen; E78.5 Hyperlipidemia, unspecified; D69.6 Thrombocytopenia, unspecified; I73.9 Peripheral vascular disease, unspecified; D64.9 Anemia, unspecified; J44.9 Chronic obstructive pulmonary disease, unspecified; E11.42 Type 2 diabetes mellitus with diabetic polyneuropathy
CPT/HCPCS: 36415; 36600; 75635-TC; 76000-TC; 80048; 80053; 82550; 82553; 82607; 82728; 82746; 82784; 82803; 82962; 83540; 83550; 83605; 83615; 83735; 84100; 84155; 84165; 84484; 85025; 85027; 85044; 85379; 85384; 85610; 85613; 85730; 85732; 86022; 86038; 86334; 86850; 86900; 86901; 93005; 93010; 93925-TC; 93970-TC; 94760; 97116-GP; 97161-GP; 99285-25; J1644; J2997

== ENCOUNTER 2017-08-04 14:45 | Inpatient (IN) | payer OTHER ==
--- NOTE | 2017-08-04 15:53 | PDOC ---
Attending Attestation - Resident Resident Name: Vicki Mac - HPI HPI: 08/05/17 09:03 Pt presents to the ED complaining of pain and increased drainage from her wounds after leaving AMA from rehab where she was recieving wound care for a fasciotomy wound that became infected. Denies fevers, nausea or vomiting, chest pain or shortness of breath. Does complain of mild headache. Patient had a wound vac in place, but when she left the facility would not allow her to take the wound vac with her. - Physicial Exam PE: 08/05/17 09:08 Agree with resident exam. PAtient is alert, oriented and well appearing. + dressings in place on leg, with mimimal serosanginous drainage. No erythema, minimal tenderness. - Medical Decision Making 08/05/17 09:09 PT presents to the eD complaining of wound drainage after leaving rehab facility AMA. Denies fevers or other signs of infection, but is tachycardic and mildly hypotensive, so will evaluate for infection or severe anemia. Will give IV hydration and reassess.
--- NOTE | 2017-08-04 15:57 | PDOC ---
History of Present Illness - General Chief Complaint: Wound Infection Stated Complaint: WOUND Time Seen by Provider: 08/04/17 15:31 History Source: Patient Exam Limitations: No Limitations - History of Present Illness Initial Comments: This is 57 YOF with h/o recent fasciotomy s/p for L popliteal artery occlusion c /b compartment syndrome (admitted to [facility] in July), HIV (CD4 809 and VL 80 on 07/04, on HAART), DM, HTN, CAD (s/p stent in 2014), BL SFA stents (04/17, 05/18 ), who p/w LLE increased pain (02/08) and swelling, now with purulent drainage from her fasciotomy site. She left AMA from her rehab facility yesterday because she did not like the way she was being treated. In leaving, she had to stop using the Wound Vac because it was rented by the SNF, and also had to stop her oxycodone medication abruptly because this was being managed by the SNF. She additionally notes subjective fever, rapid heartbeat, shakiness, nausea, and a headache which all started yesterday. Past History - Past Medical History Allergies/Adverse Reactions: Allergies Allergy/AdvReac Type Severity Reaction Status Date / Time Fish Containing Products Allergy Verified 08/04/17 14:50 Home Medications: Ambulatory Orders Gabapentin [Neurontin] 600 mg PO BID 07/06/16 Magnesium 200 mg PO DAILY PRN 07/06/16 Emtricitabine/Tenofov Alafenam [Descovy 200-25 mg Tablet (Nf)] 1 each PO HS #30 tablet 04/04/17 Lisinopril 5 mg PO HS #30 tablet 04/04/17 Loratadine [Claritin -] 10 mg PO DAILY PRN #30 tablet 04/04/17 Montelukast Na [Singulair -] 10 mg PO HS 04/26/17 Clopidogrel Bisulfate [Plavix -] 75 mg PO DAILY #30 tablet 04/27/17 Aspirin [Aspirin EC] 81 mg PO DAILY 05/02/17 Omeprazole 20 mg PO BID #60 tablet. 06/01/17 Budesonide/Formeterol Fumarate [SYMBICORT 160/4.5mcg -] 1 puff IH BID 07/04/17 Clonazepam [Klonopin -] 0.5 mg PO TID #90 tablet MDD 1.5mg 07/04/17 Escitalopram Oxalate [Lexapro -] 20 mg PO HS #30 tablet 07/04/17 Mirtazapine [Remeron -] 30 mg PO HS #30 tablet 07/04/17 Olopatadine HCl [Pataday] 1 drop OP DAILY #2.5 ml 07/04/17 Oxybutynin Chloride [Oxybutynin Chloride ER] 10 mg PO DAILY 07/04/17 Zolpidem Tartrate [Ambien] 5 mg PO HS #30 tab MDD 1 07/04/17 Pravastatin Sodium [Pravachol -] 40 mg PO HS 07/09/17 Enoxaparin [Lovenox -] 80 mg SQ BID #60 disp.syrin 07/20/17 Oxycodone HCl [Roxicodone -] 10 mg PO Q4H PRN #25 tablet MDD 30 07/20/17 Enoxaparin Sodium [Lovenox] 80 mg SQ BID 07/27/17 Unobtainable [Unobtainable] 08/04/17 Anemia: No Asthma: Yes Cancer: No Cardiac Disorders: Yes (CAD,2 stents) CVA: No COPD: No CHF: No Dementia: No Diabetes: No GI Disorders: Yes (h. pylori; GERD) Disorders: No (kidney stones) HTN: Yes Hypercholesterolemia: Yes Kidney Stones: Yes Liver Disease: No Psychiatric Problems: Yes (ANXIETY.) Seizures: No Thyroid Disease: No - Surgical History Abdominal Surgery: No Appendectomy: No Cardiac Surgery: Yes (PTCA 04/04/15 WITH ONE STENT TO LAD-COMPLETED PLAVIX THERAPY 04/01/16 2 PAVAN) Cholecystectomy: Yes Lung Surgery: No Neurologic Surgery: No Orthopedic Surgery: Yes (04/01/16 left knee replacement) - Immunization History Immunization Up to Date: Yes - Suicide/Smoking/Psychosocial Hx Smoking History: Former smoker Have you smoked in the past 12 months: No Number of Cigarettes Smoked Daily: 3 If you are a former smoker, when did you quit?: 07/2017 Cigars Per Day: 0 Information on smoking cessation initiated: No 'Breaking Loose' booklet given: 05/10/17 Hx Alcohol Use: No Drug/Substance Use Hx: No Substance Use Type: None Hx Substance Use Treatment: No Review of Systems - Review of Systems Able to Perform ROS?: Yes Constitutional: Yes: Malaise. No: Chills, Fever, Unexplained wgt Loss HEENTM: No: Nose Congestion, Throat Pain Respiratory: No: Cough, Shortness of Breath Cardiac (ROS): No: Chest Pain, Palpitations ABD/GI: Yes: Nausea. No: Constipated, Diarrhea, Vomiting : No: Burning, Dysuria Musculoskeletal: Yes: Other (left leg pain). No: Back Pain, Neck Pain Integumentary: Yes: Other (left leg incision drainage). No: Bruising, Rash Neurological: Yes: Headache, Tremors. No: Numbness, Tingling, Weakness, Dizziness Endocrine: No: Unexplained Weight Gain, Unexplained Weight Loss *Physical Exam - Vital Signs Last Vital Signs Temp Pulse Resp BP Pulse Ox 98.2 F 118 H 17 91/68 100 08/04/17 14:51 08/04/17 14:51 08/04/17 14:51 08/04/17 14:51 08/04/17 14:51 - Physical Exam General Appearance: Yes: Nourished, Appropriately Dressed, Obese, Other (Alert and oriented adult female, appropriately answering questions, nontoxic appearing ). No: Apparent Distress HEENT: positive: EOMI, Normal Voice, Hearing Grossly Normal. negative: Scleral Icterus (R), Scleral Icterus (L), Nasal Congestion Neck: positive: Trachea midline, Supple. negative: Tender, Rigid Respiratory/Chest: positive: Lungs Clear, Normal Breath Sounds. negative: Respiratory Distress, Crackles, Rhonchi, Stridor, Wheezing Cardiovascular: positive: Regular Rhythm, Regular Rate. negative: Murmur Gastrointestinal/Abdominal: positive: Normal Bowel Sounds, Soft. negative: Tender, Organomegaly, Pulsatile Mass, Guarding Musculoskeletal: positive: Normal Inspection. negative: Decreased Range of Motion, Vertebral Tenderness Extremity: positive: Normal Capillary Refill, Normal Inspection, Normal Range of Motion. negative: Tender, Cyanosis Integumentary: positive: Normal Color, Dry, Warm. negative: Erythema, Rash, Bruising Neurologic: positive: healthcare advisory services manager II-XII NML intact, Fully Oriented, Alert, Normal Mood/ Affect, Normal Response, Motor Strength 5/5 ED Treatment Course - LABORATORY CBC & Chemistry Diagram: 08/04/17 17:40 08/04/17 17:40 Medical Decision Making - Medical Decision Making 57 YOF p/w increased drainage from leg surgical wound, subj fever, STONE. On exam the wound does have foam in place with tegaderm, no wound vac. Sepsis workup ordered, cardiac panel, 500cc NS. 08/04/17 18:58 Hgb 5.9, WBC 13.9, lactate 2.1. Patient is severely anemic and has been having STONE for the past day. 2 U pRBCs ordered, patient states she agreeable to xfusion. 500cc NS, vanc, and Zosyn also ordered for elevated lactate/sepsis protocol. 08/04/17 20:22 Dr. Ramirez hanks (patient's vascular surgeon). Dr. Mccloud spoke with Dr. Guzmán who recommends taking down dressing. We can replace dressing with xeroform and coban. 08/04/17 21:48 [facility] microblogged for admission. *DC/Admit/Observation/Transfer Diagnosis at time of Disposition: History of fasciotomy, Human immunodeficiency virus (HIV) disease, PAD ( peripheral artery disease) Anemia Qualifiers: Anemia type: unspecified type Qualified Code(s): D64.9 - Anemia, unspecified Sepsis Qualifiers: Sepsis type: sepsis due to unspecified organism Qualified Code(s): A41.9 - Sepsis, unspecified organism DM w/o complication type II Qualifiers: Diabetes mellitus senior living insulin use: unspecified tank terminal gauger insulin use status Qualified Code(s): E11.9 - Type 2 diabetes mellitus without complications - Discharge Dispostion Condition at time of disposition: Guarded Admit: Yes - Referrals Referrals: ON STAFF,NOT [Primary Care Provider] - - Patient Instructions - Post Discharge Activity
[2017-08-04] MEDS ORDERED: SODIUM CHLORIDE 500 ML IV STA (17:07)
[2017-08-04 17:54] LABS: BASO % 0.3 % (0-2.0); EOS % 0.4 % (0-4.5); LYMPH % 13.1 % (8-40); MCH 26.2 pg (25.7-33.7); MCHC 30.8 g/dl (32.0-36.0); MEAN CELL VOLUME 84.9 fl (80-96); MEAN PLT VOLUME 8.3 fl (7.5-11.1); MONO % 3.8 % (3.8-10.2); NEUT % 82.4 % (42.8-82.8); PLATELET COUNT 291 K/MM3 (134-434); RBC 2.26 M/mm3 (3.60-5.2); RDW 17.6 % (11.6-15.6); VENOUS PC02 43.9 mmHg (38-52); VENOUS PH 7.4 (7.32-7.42); VENOUS PO2 34.2 mmHg (28-48); WHITE BLOOD COUNT 13.9 K/mm3 (4.0-10.0)
[2017-08-04 18:02] LABS: HEMATOCRIT 19.2 % (32.4-45.2); HEMOGLOBIN 5.9 GM/dL (10.7-15.3)
[2017-08-04 18:06] LABS: INR 1.16 (0.82-1.09); PROTHROMBIN TIME (PATIENT) 13.1 SEC (9.98-11.88)
[2017-08-04 18:18] LABS: ALBUMIN 2.7 g/dl (3.4-5.0); ANION GAP 9 (8-16); BILIRUBIN,TOTAL 0.3 mg/dL (0.2-1.0); BLOOD UREA NITROGEN 12 mg/dL (7-18); CALCIUM 8.4 mg/dL (8.5-10.1); CHLORIDE 102 mmol/L (98-107); CO2 26 mmol/L (21-32); CREATININE 1.2 mg/dL (0.55-1.02); GLUCOSE,RANDOM 123 mg/dL (74-106); SGOT/AST 18 U/L (15-37); SGPT/ALT 14 U/L (12-78); SODIUM 137 mmol/L (136-145); TOT PROT 6.5 g/dl (6.4-8.2)
[2017-08-04 18:20] LABS: ALK PHOS 104 U/L (45-117)
[2017-08-04 18:33] LABS: URINE APPEARANCE CLEAR; URINE BILIRUBIN NEGATIVE (NEGATIVE); URINE BLOOD NEGATIVE (NEGATIVE); URINE COLOR COLORLESS; URINE GLUCOSE (UA) NEGATIVE (NEGATIVE); URINE KETONE NEGATIVE (NEGATIVE); URINE LEUK ESTERASE NEGATIVE (NEGATIVE); URINE NITRITE NEGATIVE (NEGATIVE); URINE PROTEIN NEGATIVE (NEGATIVE); URINE UROBILINOGEN NEGATIVE mg/dL (0.2-1.0)
[2017-08-04] MEDS ORDERED: oxyCODONE HCL 5 MG TABLET PO ONE (18:33)
[2017-08-04] MEDS ORDERED: SODIUM CHLORIDE 0.9% 1000 ML INFUS.BAG IV ONE (19:00)
[2017-08-04] MEDS ORDERED: VANCOMYCIN 1 GRAM (PRE-DOCKED) 1,000 MG/250 ML BAG IVPB ONE ×2 (19:02→19:21)
[2017-08-04] MEDS ORDERED: PIPERACIL/TAZOB 3.375 GM 3.375 GM/50 ML PREMIX IVPB ONE (19:03)
[2017-08-04] MEDS ORDERED: PIPERACILLIN/TAZOB 3.375 GM 3.375 GM in DEXTROSE 5%-WATER - 100 ML IVPB ONE (19:15)
[2017-08-04] MEDS ORDERED: oxyCODONE HCL 5 MG TABLET ONE (19:21)
[2017-08-04] MEDS ORDERED: PIPERACILLIN/TAZOB 3.375 GM 3.375 GM/50 ML BAG IVPB ONE (19:22)
--- NOTE | 2017-08-04 22:33 | HP ---
CHIEF COMPLAINT: Wound infection PCP: Dr. Jimenes HISTORY OF PRESENT ILLNESS: 57 yo woman w/ pmh of HIV (CV4 809, VL 80 on 07/04; on HAART), DM2, HTN, CAD (s/p cardiac stent 04/15), BL SFA stents (04/17, 05/18), who presents from home due to swelling, purulent drainage and burning around fasciotomy site in L lower leg. Pt recently admitted on 07/09 for L popliteal artery stent occlusion, c/b compartment syndrome requiring fasciotomy of L lower calf. Discharged to [facility] with wound care M-F with Dr. Guzmán. Pt had been treated with wound vac at fasciotomy site at [facility], in addition to hyperbaric tx at wound care clinic. However, left AMA from [facility] yesterday, as she felt she was not being treated appropriately. Pt had to abruptly d/c wound vac and oxycodone for pain medication after leaving [facility]. Pt states she was soaking her L foot in tub and noted "bubble" in inferior margin of medial laparotomy incision, with dark yellow drainage. In addition, she noted increased burning sensation around margin of both medial and lateral incision, with trace erythema and increased swelling. Pt states she was seen by Dr. Guzmán on 08/01 for wound care management and noted her bandages were soaked in blood. Pt denies any fevers/chills, cough , SOB, Ab pain, N/V, dysuria, diarrhea, other rashes, focal neurologic symptoms. She does endorse mild pedal edema in L ankle, however denies any tingling, numbness, decrease strength or sensation in L foot or leg. Pt states she is on a "blood thinner", but has not been taking it for two days. Pt denies any recent bleeding, including hemoptysis, hematemesis, hematuria, melena, hematochezia, bruising. ER course was notable for: (1)WBC 13.9 (2)Hgb 5.9 (3)Tachy 118, BP 91/68 Recent Travel: None PAST MEDICAL HISTORY: Asthma CAD, 2 prior stents GERD, h. pylori Kidney stones HTN HLD Anxiety L popliteal artery occlusion - compartment syndrome, s/p fasciotomy BL SFA stents HIV PAST SURGICAL HISTORY: PTCA 04/04/15 w/ one stent GB removal LKR 04/01/16 R achilles tendon repair Social History: Smoking: Former smoker, 5 cigs/day. Quit 2 weeks ago. 39 pack years Alcohol: Denies Drugs: Denies Family History: Multiple arterial/venous clots in family per pt; unable to give further details Mother with diabetes Father with heart disease Allergies Fish Containing Products Allergy (Verified 08/04/17 14:50) Pt reports fish allergy HOME MEDICATIONS: Home Medications Medication Instructions Recorded Gabapentin [Neurontin] 600 mg PO BID 07/06/16 Magnesium 200 mg PO DAILY PRN 07/06/16 Emtricitabine/Tenofov Alafenam 1 each PO HS #30 tablet 04/04/17 [Descovy 200-25 mg Tablet (Nf)] Lisinopril 5 mg PO HS #30 tablet 04/04/17 Loratadine [Claritin -] 10 mg PO DAILY PRN #30 tablet 04/04/17 Montelukast Na [Singulair -] 10 mg PO HS 04/26/17 Clopidogrel Bisulfate [Plavix -] 75 mg PO DAILY #30 tablet 04/27/17 Aspirin [Aspirin EC] 81 mg PO DAILY 05/02/17 Omeprazole 20 mg PO BID #60 tablet. 06/01/17 Budesonide/Formeterol Fumarate 1 puff IH BID 07/04/17 [SYMBICORT 160/4.5mcg -] Clonazepam [Klonopin -] 0.5 mg PO TID #90 tablet MDD 1.5mg 07/04/17 Escitalopram Oxalate [Lexapro -] 20 mg PO HS #30 tablet 07/04/17 Mirtazapine [Remeron -] 30 mg PO HS #30 tablet 07/04/17 Olopatadine HCl [Pataday] 1 drop OP DAILY #2.5 ml 07/04/17 Oxybutynin Chloride [Oxybutynin 10 mg PO DAILY 07/04/17 Chloride ER] Zolpidem Tartrate [Ambien] 5 mg PO HS #30 tab MDD 1 07/04/17 Pravastatin Sodium [Pravachol -] 40 mg PO HS 07/09/17 Enoxaparin [Lovenox -] 80 mg SQ BID #60 disp.syrin 07/20/17 Oxycodone HCl [Roxicodone -] 10 mg PO Q4H PRN #25 tablet MDD 30 07/20/17 Enoxaparin Sodium [Lovenox] 80 mg SQ BID 07/27/17 Unobtainable [Unobtainable] 08/04/17 REVIEW OF SYSTEMS CONSTITUTIONAL: Absent: fever, chills, diaphoresis, generalized weakness, malaise, loss of appetite, weight change HEENT: Absent: rhinorrhea, nasal congestion, throat pain, throat swelling, difficulty swallowing, mouth swelling, ear pain, eye pain, visual changes CARDIOVASCULAR: peripheral edema Absent: chest pain, syncope, palpitations, irregular heart rate, lightheadedness , RESPIRATORY: Absent: cough, shortness of breath, dyspnea with exertion, orthopnea, wheezing, stridor, hemoptysis GASTROINTESTINAL: Absent: abdominal pain, abdominal distension, nausea, vomiting, diarrhea, constipation, melena, hematochezia GENITOURINARY: Absent: dysuria, frequency, urgency, hesitancy, hematuria, flank pain, genital pain MUSCULOSKELETAL: Pain in L calf with purulent drainage, swelling, and erythema at fasciotomy site Absent: myalgia, arthralgia, joint swelling, back pain, neck pain SKIN: rash, Absent: itching, pallor HEMATOLOGIC/IMMUNOLOGIC: Absent: easy bleeding, easy bruising, lymphadenopathy, frequent infections ENDOCRINE: Absent: unexplained weight gain, unexplained weight loss, heat intolerance, cold intolerance NEUROLOGIC: Absent: headache, focal weakness or paresthesias, dizziness, unsteady gait, seizure, mental status changes, bladder or bowel incontinence PSYCHIATRIC: Absent: anxiety, depression, suicidal or homicidal ideation, hallucinations. PHYSICAL EXAMINATION Vital Signs - 24 hr Intake & Output 08/01/17 08/02/17 08/03/17 08/04/17 23:59 23:59 23:59 23:59 Weight 81.647 kg 08/04/17 14:51 Temperature 98.2 F Pulse Rate 118 H Respiratory 17 Rate Blood Pressure 91/68 O2 Sat by Pulse 100 Oximetry (%) GENERAL: Awake, alert, and fully oriented, in no acute distress. HEAD: Normal with no signs of trauma. EYES: Pupils equal, round and reactive to light, extraocular movements intact, sclera anicteric, conjunctiva clear. No lid lag. EARS, NOSE, THROAT: Ears normal, nares patent, oropharynx clear without exudates. Moist mucous membranes. NECK: Normal range of motion, supple without lymphadenopathy, JVD, or masses. LUNGS: Coarse expiratory rhonchi noted BL. No wheezes, and no crackles. No accessory muscle use. HEART: Regular rate and rhythm, normal S1 and S2 without murmur, rub or gallop. ABDOMEN: Soft, nontender, not distended, normoactive bowel sounds, no guarding, no rebound, no masses. No hepatomegaly or splenomegaly. MUSCULOSKELETAL: Normal range of motion at all joints. No bony deformities or tenderness. No CVA tenderness. UPPER EXTREMITIES: 2+ pulses, warm, well-perfused. No cyanosis. No clubbing. No peripheral edema. LOWER EXTREMITIES: Vertical incisions on the medial and lateral surface of L calf with peripheral trace erythema BL, fluctuance in medial incision with minimal white purulence noted in inferior margin of wound, and small white pustule at superior margin of lateral incision. Mild tenderness to palpation in both incisions. 2+ pulses, warm, well-perfused. 1+ L pitting edema NEUROLOGICAL: Cranial nerves II-XII intact. Normal speech. Gait not evaluated. 5/5 strength in all muscle groups. Unable to dorsiflex L foot due to pain. Preserved sensation to light touch diffusely. PSYCHIATRIC: Cooperative. Good eye contact. Appropriate mood and affect. SKIN: Warm, dry, normal turgor, no rashes or lesions noted, normal capillary refill. Laboratory Results - last 24 hr CBC, BMP 08/04/17 17:40 08/04/17 17:40 08/04/17 08/04/17 08/04/17 16:20 17:40 17:40 WBC 13.9 H D RBC 2.26 L D Hgb 5.9 L* D Hct 19.2 L D MCV 84.9 MCH 26.2 MCHC 30.8 L RDW 17.6 H D Plt Count 291 MPV 8.3 Neutrophils % 82.4 D Lymphocytes % 13.1 D Monocytes % 3.8 Eosinophils % 0.4 Basophils % 0.3 PT with INR 13.10 H INR 1.16 H VBG pH POC VBG pCO2 POC VBG pO2 Mixed VBG HCO3 Sodium Potassium Chloride Carbon Dioxide Anion Gap BUN Creatinine Creat Clearance w eGFR Random Glucose Lactic Acid Calcium Total Bilirubin AST ALT Alkaline Phosphatase Creatine Kinase Creatine Kinase Index CK-MB (CK-2) Troponin I Total Protein Albumin Urine Color Colorless Urine Appearance Clear Urine pH 7.0 D Ur Specific [place] 1.003 Urine Protein Negative Urine Glucose (UA) Negative Urine Ketones Negative Urine Blood Negative Urine Nitrite Negative Urine Bilirubin Negative Urine Urobilinogen Negative Ur Leukocyte Esterase Negative Blood Type Antibody Screen Crossmatch 08/04/17 08/04/17 08/04/17 17:40 17:40 17:40 WBC RBC Hgb Hct MCV MCH MCHC RDW Plt Count MPV Neutrophils % Lymphocytes % Monocytes % Eosinophils % Basophils % PT with INR INR VBG pH 7.40 POC VBG pCO2 43.9 POC VBG pO2 34.2 Mixed VBG HCO3 26.6 H Sodium 137 Potassium 4.0 Chloride 102 Carbon Dioxide 26 Anion Gap 9 BUN 12 Creatinine 1.2 H Creat Clearance w eGFR 46.64 Random Glucose 123 H Lactic Acid 2.1 H Calcium 8.4 L Total Bilirubin 0.3 AST 18 ALT 14 Alkaline Phosphatase 104 Creatine Kinase 478 H Creatine Kinase Index 0.3 CK-MB (CK-2) 1.732 Troponin I < 0.02 Total Protein 6.5 Albumin 2.7 L Urine Color Urine Appearance Urine pH Ur Specific [place] Urine Protein Urine Glucose (UA) Urine Ketones Urine Blood Urine Nitrite Urine Bilirubin Urine Urobilinogen Ur Leukocyte Esterase Blood Type Antibody Screen Crossmatch 08/04/17 08/04/17 17:40 20:57 WBC RBC Hgb Hct MCV MCH MCHC RDW Plt Count MPV Neutrophils % Lymphocytes % Monocytes % Eosinophils % Basophils % PT with INR INR VBG pH POC VBG pCO2 POC VBG pO2 Mixed VBG HCO3 Sodium Potassium Chloride Carbon Dioxide Anion Gap BUN Creatinine Creat Clearance w eGFR Random Glucose Lactic Acid 2.0 Calcium Total Bilirubin AST ALT Alkaline Phosphatase Creatine Kinase Creatine Kinase Index CK-MB (CK-2) Troponin I Total Protein Albumin Urine Color Urine Appearance Urine pH Ur Specific [place] Urine Protein Urine Glucose (UA) Urine Ketones Urine Blood Urine Nitrite Urine Bilirubin Urine Urobilinogen Ur Leukocyte Esterase Blood Type B POSITIVE Antibody Screen Negative Crossmatch See Detail CXR 2/3 - Poor inspiratory effort. No acute gross pathology noted. ASSESSMENT/PLAN: 57 yo woman w/ pmh of HIV (CV4 809, VL 80 on 07/04; on HAART), DM2, HTN, CAD (s/p cardiac stent 04/15), BL SFA stents (04/17, 05/18), who presents from home due to swelling, purulent drainage and burning around fasciotomy site in L lower leg. PLEASE MED REC PT HOME MEDS IN AM! #Wound infection at fasciotomy site - Sepsis secondary to fasciitis; WBC 13.9, - Vascular consult, Dr. Guzmán aware; will see in AM - Trend WBC, fever - Consider CT L leg if continues to worsen - Wound culture - IVFs - Received one dose vanc, zosyn; started on Clindamycin 600mg q8h for coverage - UA negative - LA normal 2.0 - ID consult #Anemia - Hgb 5.9; likely bleed from fasciotomy site on 08/01 - FOBT - iron studies - Ordered for 2 units pRBCs; f/u AM CBC - Trend H/H - Coags - Hold AC for now - Consider GI source if Hgb continues to drop #CAD - ASA, plavix if no active bleed - Lipid panel - Trops negative #HTN - Hold HTN meds, as pt hypotensive 90s/60s on presentation - IVFs - One time dose of lasix 20mg, as pt edematous in L leg; monitor for hypotension #DM -BGM ACHS - ISS #HLD -c/w home statin #HIV -c/w home HIV meds PPX HSQ FEN IVFs Daily BMPs Diabetic diet Plan discussed with attending, Dr. Analilia Davila, PGY1 Visit type - Emergency Visit Emergency Visit: Yes ED Registration Date: 08/04/17 Care time: The patient presented to the Emergency Department on the above date and was hospitalized for further evaluation of their emergent condition. - New Patient This patient is new to me today: Yes Date on this admission: 08/05/17 - Critical Care Critical Care patient: No
[2017-08-05] MEDS ORDERED: FUROSEMIDE 20 MG TABLET (FP) PO ONE (04:39)
--- NOTE | 2017-08-05 04:52 | PN ---
Teaching Attending Note Name of Resident: Andrea Davila ATTENDING PHYSICIAN STATEMENT I saw and evaluated the patient. I reviewed the resident's note and discussed the case with the resident. I agree with the resident's findings and plan as documented. SUBJECTIVE: OBJECTIVE: ASSESSMENT AND PLAN: 57 yo woman w/ pmh of HIV (CV4 809, VL 80 on 07/04; on HAART), DM2, HTN, CAD (s/p cardiac stent 04/15), BL SFA stents (04/17, 05/18), who presents from home due to swelling, purulent drainage and burning around fasciotomy site in L lower leg. according to the patient she had a bloody wound dressing when she saw the wound care and surgeon, today the patient was noted to have a Hb of 5.9, she denied any source of bleeding besides the soaked gauze she had from the wound. she had no melena, no hemeatemesis, and no fresh blood per rectum #Anemia acute blood loss vs chronic inflammatory process - Hgb 5.9; likely bleed from fasciotomy site on 08/01 - obtain FOBT - iron studies - Ordered for 2 units pRBCs - Trend H/H - Coags - Hold AC for now #CAD - ASA #Wound infection at fasciotomy site - Sepsis secondary to fasciitis; WBC 13.9, - vascular surgery on board - clopidogrel 75mg for the stents placed - Wound culture - Received one dose vanc, and pipercillin-tazobactam - ID consultation #HTN - Hold HTN meds, as pt hypotensive 90s/60s on presentation - IVFs #DM -BGM ACHS - ISS #HLD -c/w home statin #HIV -c/w home HIV meds
[2017-08-05] MEDS ORDERED: FUROSEMIDE 40 MG TABLET (FP) ONE (06:39)
[2017-08-05] MEDS ORDERED: INSULIN (NOVOLOG) ASPART 100 UNITS/ML 10ML VIAL ONE (06:42)
[2017-08-05] MEDS ORDERED: oxyCODONE HCL 5 MG TABLET PO PRN (06:52)
[2017-08-05] MEDS: INSULIN SLIDING SCALE (NOVOLOG) 1 VIAL SQ SCH ×5 (07:01→23:55)
[2017-08-05] MEDS ORDERED: SODIUM CHLORIDE 500 ML IV STA (08:40)
[2017-08-05] MEDS ORDERED: SODIUM CHLORIDE 1,000 ML IV SCH (08:45)
[2017-08-05 08:57] LABS: BASO % 0.3 % (0-2.0); EOS % 1.8 % (0-4.5); HEMATOCRIT 27.6 % (32.4-45.2); HEMOGLOBIN 8.8 GM/dL (10.7-15.3); LYMPH % 21.4 % (8-40); MCH 27.1 pg (25.7-33.7); MCHC 31.7 g/dl (32.0-36.0); MEAN CELL VOLUME 85.5 fl (80-96); MEAN PLT VOLUME 7.9 fl (7.5-11.1); MONO % 5.3 % (3.8-10.2); NEUT % 71.2 % (42.8-82.8); PLATELET COUNT 270 K/MM3 (134-434); RBC 3.22 M/mm3 (3.60-5.2); RDW 16.5 % (11.6-15.6); WHITE BLOOD COUNT 7.6 K/mm3 (4.0-10.0)
--- NOTE | 2017-08-05 08:57 | PN ---
Progress Note, Physician Chief Complaint: ID This 57 year old female from the [facility] and home presents with purulent fould smelling pus from a recent left lower leg fasciotomy site in [place] per Dr Guzmán. In addition to her HIV she has IDDM PAD coronary angioplasty CAD hyperlipidemia and she smokes. Following recent surgery she went to [facility] but signed herself out several days ago and went home. She returns with purulent drainage from the left leg VAC site NO fever or chills. With regard to her HIV she takes Dolutegravir and Descovy T cells were 725 and viral RNA 180 copies - Current Medication List Current Medications: Active Medications Budesonide/Formoterol Fumarate (Symbicort 160/4.5mcg -) 1 puff IH BID JENNIFER Escitalopram Oxalate (Lexapro -) 10 mg PO DAILY JENNIFER Gabapentin (Neurontin -) 600 mg PO BID JENNIFER Clindamycin Phosphate (Cleocin 600 Mg Premix Ivpb -) 600 mg in 50 mls @ 100 mls /hr IVPB Q8H-IV JENNIFER Sodium Chloride (Normal Saline -) 500 mls @ 500 mls/hr IV ASDIR STA Stop: 08/05/17 09:39 Sodium Chloride (Normal Saline -) 1,000 mls @ 100 mls/hr IV ASDIR JENNIFER Insulin Aspart (Novolog Vial Sliding Scale -) 1 vial SQ Q4HPO JENNIFER PRN Reason: Protocol Last Admin: 08/05/17 07:01 Dose: Not Given Mirtazapine (Remeron -) 30 mg PO HS JENNIFER Montelukast Sodium (Singulair -) 10 mg PO DAILY JENNIFER Oxycodone HCl (Roxicodone -) 5 mg PO Q6H PRN PRN Reason: PAIN LEVEL 4 - 6 - Objective Vital Signs: Vital Signs Temperature 98.5 F 08/05/17 07:13 Pulse Rate 89 08/05/17 07:13 Respiratory Rate 16 08/05/17 07:13 Blood Pressure 123/75 08/05/17 07:13 O2 Sat by Pulse Oximetry (%) 97 08/05/17 07:13 HENT: Yes: WNL, Atraumatic Neck: Yes: WNL, Supple Cardiovascular: Yes: Regular Rate and Rhythm, S1, S2 Respiratory: Yes: WNL, Regular, CTA Bilaterally Gastrointestinal: Yes: WNL, Normal Bowel Sounds, Soft. No: Tenderness, Rebound Extremities: Yes: Other (VAC dressing lower leg not removed) Labs: INR, PTT INR 1.16 (0.82-1.09) H 08/04/17 17:40 Problem List - Problems (1) Compartment syndrome of left lower extremity Code(s): T79.A22A - TRAUMATIC COMPARTMENT SYNDROME OF LEFT LOWER EXTREMITY, INIT (2) History of fasciotomy Code(s): Z98.890 - OTHER SPECIFIED POSTPROCEDURAL STATES (3) CAD S/P percutaneous coronary angioplasty Code(s): I25.10 - ATHSCL HEART DISEASE OF [place] CORONARY ARTERY W/O ANG PCTRS; Z98.61 - CORONARY ANGIOPLASTY STATUS (4) DM w/o complication type II Code(s): E11.9 - TYPE 2 DIABETES MELLITUS WITHOUT COMPLICATIONS (5) Human immunodeficiency virus (HIV) disease Code(s): B20 - HUMAN IMMUNODEFICIENCY VIRUS [HIV] DISEASE (6) Hyperlipemia Code(s): E78.5 - HYPERLIPIDEMIA, UNSPECIFIED Qualifiers: Hyperlipidemia type: Mixed hyperlipidemia Qualified Code(s): E78.2 - Mixed hyperlipidemia (7) PAD (peripheral artery disease) Code(s): I73.9 - PERIPHERAL VASCULAR DISEASE, UNSPECIFIED (8) Tobacco use disorder Code(s): Z72.0 - TOBACCO USE Assessment/Plan Laboratory Tests 08/04/17 08/04/17 08/04/17 17:40 17:40 17:40 WBC 13.9 H D RBC 2.26 L D Hgb 5.9 L* D Plt Count 291 BUN 12 Creatinine 1.2 H Creat Clearance w eGFR 46.64 Lactic Acid 2.1 H Total Bilirubin 0.3 08/05/17 08:10 WBC Pending RBC Pending Hgb Plt Count Pending BUN Creatinine Creat Clearance w eGFR Lactic Acid Total Bilirubin ASSESSMENT S/P fasciotomy compartment syndrome in Jul presents with infected foul wound drainage from VAC site No fever or chills HIV positive DM PAD SMOKING LIPIDS comorbities Plan Blood and wound cultures Dr Guzmán to see Lizbethommallorie and Chai Patient may take her own HIV meds Jonatan ZAMORA
[2017-08-05 09:04] LABS: INR 1.04 (0.82-1.09); PROTHROMBIN TIME (PATIENT) 11.8 SEC (9.98-11.88)
[2017-08-05 09:06] LABS: ACTIVATED PTT 26.2 SECONDS (26.9-34.4)
[2017-08-05 09:15] LABS: ALBUMIN 2.5 g/dl (3.4-5.0); ALK PHOS 102 U/L (45-117); ANION GAP 7 (8-16); BILIRUBIN,TOTAL 0.3 mg/dL (0.2-1.0); BLOOD UREA NITROGEN 11 mg/dL (7-18); CALCIUM 8.2 mg/dL (8.5-10.1); CHLORIDE 108 mmol/L (98-107); CO2 26 mmol/L (21-32); CREATININE 1.1 mg/dL (0.55-1.02); GLUCOSE,RANDOM 130 mg/dL (74-106); MAGNESIUM 2.2 mg/dL (1.8-2.4); PHOSPHOROUS 3.8 mg/dL (2.5-4.9); POTASSIUM 4.4 mmol/L (3.5-5.1); SGOT/AST 16 U/L (15-37); SGPT/ALT 13 U/L (12-78); SODIUM 141 mmol/L (136-145); TOT PROT 6.1 g/dl (6.4-8.2)
[2017-08-05] MEDS ORDERED: MONTELUKAST NA 10 MG TABLET PO SCH (10:00)
[2017-08-05] MEDS ORDERED: PIPERACILLIN/TAZOB 4.5 GM 4.5 GM/100 ML BAG IVPB SCH (10:00)
[2017-08-05] MEDS ORDERED: DOLUTEGRAVIR SODIUM 50 MG TABLET PO SCH (10:00)
[2017-08-05] MEDS ORDERED: GABAPENTIN 300 MG CAPSULE (FP) PO SCH (10:00)
[2017-08-05] MEDS ORDERED: VANCOMYCIN 1,250 MG in DEXTROSE 5%-WATER - 250 ML IVPB SCH (10:00)
[2017-08-05] MEDS ORDERED: CLINDAMYCIN 600MG PREMIX IVPB 600 MG/50 ML BAG IVPB SCH (10:00)
[2017-08-05] MEDS ORDERED: ESCITALOPRAM OXALATE 10 MG TABLET (FP) PO SCH (10:00)
[2017-08-05] MEDS ORDERED: LACTATED RINGERS SOLUTION 1,000 ML/1,000 ML INFUS.BAG IV SCH ×2 (10:15→10:23)
[2017-08-05] MEDS ORDERED: LACTATED RINGERS SOLUTION 1000 ML INFUS.BAG IV ONE (10:15)
[2017-08-05] MEDS ORDERED: HEPARIN NA (PORCINE) 5,000 UNITS/ML 1ML VIAL IVPUSH PRN ×6 (10:20→17:23)
[2017-08-05] MEDS ORDERED: HEPARIN SOD,PORK IN 0.45% NACL 25,000 UNITS/500 ML INFUS.BAG IVPB SCH ×2 (10:30→17:23)
--- NOTE | 2017-08-05 10:32 | PN ---
Teaching Attending Note Name of Resident: Arleth Brenner ATTENDING PHYSICIAN STATEMENT SUBJECTIVE: Patient seen and examined, denies any worsening pain or fevers currently. Has foul smelling discharge. Also reports has been oozing from wound site, had bleeding on sunday and was seen by Dr. Guzmán on . No dark or bloody stools, hemetemesis or other concerns. No chest pain. OBJECTIVE: Vital Signs Period Temp Pulse Resp BP Sys/Cota Pulse Ox Last 24 Hr 98.2 F-98.8 F 89-118 16-18 86-123/55-75 96-100 Intake & Output 08/02/17 08/03/17 08/04/17 08/05/17 23:59 23:59 23:59 23:59 Weight 180 lb General: sitting in bed in no acute distress Extremities: LLE with wound vac tube but not connected to wound vac, dressing over vertical wounds on medial and lateral side of left leg, base with foul smelling serosanguinous discharge, Left foot edema (improved from prior admit per patient), mild erythema, pos DP pulses present bilaterally Abdomen: soft, obese, NT Chest: CTAB, no rales or wheezing Home Medication List Medication Instructions Recorded Confirmed Type Gabapentin [Neurontin] 600 mg PO BID 07/06/16 07/27/17 History Magnesium 200 mg PO DAILY PRN 07/06/16 07/27/17 History Montelukast Na [Singulair -] 10 mg PO HS 04/26/17 07/27/17 History Aspirin [Aspirin EC] 81 mg PO DAILY 05/02/17 07/27/17 History Budesonide/Formeterol Fumarate 1 puff IH BID 07/04/17 07/27/17 History [SYMBICORT 160/4.5mcg -] Oxybutynin Chloride [Oxybutynin 10 mg PO DAILY 07/04/17 07/27/17 History Chloride ER] Pravastatin Sodium [Pravachol -] 40 mg PO HS 07/09/17 07/27/17 History Enoxaparin Sodium [Lovenox] 80 mg SQ BID 07/27/17 07/27/17 History Unobtainable [Unobtainable] 08/04/17 08/04/17 History Active Medications Generic Name Dose Route Start Last Admin Trade Name Freq PRN Reason Stop Dose Admin Budesonide/Formoterol Fumarate 1 puff 08/05/17 10:00 Symbicort 160/4.5mcg - IH BID [facility] Escitalopram Oxalate 10 mg 08/05/17 10:00 Lexapro - PO DAILY [facility] Gabapentin 600 mg 08/05/17 10:00 Neurontin - PO BID [facility] Heparin Sodium (Porcine) 1,000 unit 08/05/17 10:20 Heparin - IVPUSH PRN PRN Heparin Heparin Sodium (Porcine) 5,000 unit 08/05/17 10:20 Heparin - IVPUSH PRN PRN Heparin Vancomycin HCl 1,250 mg/ 250 mls @ 250 mls/hr 08/05/17 10:00 Dextrose IVPB DAILY [facility] Protocol Piperacillin/Tazobactam/Dextrose 4.5 gm in 100 mls @ 200 mls/hr 08/05/17 10: 00 Zosyn 4.5gm Ivpb (Premix) IVPB Q8H-IV [facility] Protocol HEPARIN SOD,PORK IN 0.45% NACL 25,000 units in 500 mls @ 20 mls/hr 08/05/17 10 :30 Heparin-1/2ns 25,000 Units/500 IVPB TITR [facility] Protocol 1,000 UNITS/HR Lactated Ringer's 1,000 ml in 1,000 mls @ 75 mls/hr 08/05/17 10:23 Lactated Ringers Solution IV ASDIR [facility] Insulin Aspart 1 vial 08/05/17 11:00 Novolog Vial Sliding Scale - SQ ACHS [facility] Protocol Mirtazapine 30 mg 08/05/17 22:00 Remeron - PO HS [facility] Montelukast Sodium 10 mg 08/05/17 10:00 Singulair - PO DAILY [facility] Non-Formulary Medication 1 each 08/05/17 10:00 Patient's Own Med PO DAILY [facility] Non-Formulary Medication 1 each 08/05/17 10:00 Patient's Own Med PO DAILY [facility] Oxycodone HCl 5 mg 08/05/17 06:52 Roxicodone - PO Q6H PRN PAIN LEVEL 4 - 6 Laboratory Results - last 24 hr 08/04/17 08/04/17 08/04/17 16:20 17:40 17:40 WBC 13.9 H D RBC 2.26 L D Hgb 5.9 L* D Hct 19.2 L D MCV 84.9 MCH 26.2 MCHC 30.8 L RDW 17.6 H D Plt Count 291 MPV 8.3 Neutrophils % 82.4 D Lymphocytes % 13.1 D Monocytes % 3.8 Eosinophils % 0.4 Basophils % 0.3 PT with INR 13.10 H INR 1.16 H PTT (Actin FS) VBG pH POC VBG pCO2 POC VBG pO2 Mixed VBG HCO3 Sodium Potassium Chloride Carbon Dioxide Anion Gap BUN Creatinine Creat Clearance w eGFR Random Glucose Lactic Acid Calcium Phosphorus Magnesium Ferritin Total Bilirubin AST ALT Alkaline Phosphatase LD Total Creatine Kinase Creatine Kinase Index CK-MB (CK-2) Troponin I Total Protein Albumin Urine Color Colorless Urine Appearance Clear Urine pH 7.0 D Ur Specific [place] 1.003 Urine Protein Negative Urine Glucose (UA) Negative Urine Ketones Negative Urine Blood Negative Urine Nitrite Negative Urine Bilirubin Negative Urine Urobilinogen Negative Ur Leukocyte Esterase Negative Blood Type Antibody Screen Crossmatch 08/04/17 08/04/17 08/04/17 17:40 17:40 17:40 WBC RBC Hgb Hct MCV MCH MCHC RDW Plt Count MPV Neutrophils % Lymphocytes % Monocytes % Eosinophils % Basophils % PT with INR INR PTT (Actin FS) VBG pH 7.40 POC VBG pCO2 43.9 POC VBG pO2 34.2 Mixed VBG HCO3 26.6 H Sodium 137 Potassium 4.0 Chloride 102 Carbon Dioxide 26 Anion Gap 9 BUN 12 Creatinine 1.2 H Creat Clearance w eGFR 46.64 Random Glucose 123 H Lactic Acid 2.1 H Calcium 8.4 L Phosphorus Magnesium Ferritin Total Bilirubin 0.3 AST 18 ALT 14 Alkaline Phosphatase 104 LD Total Creatine Kinase 478 H Creatine Kinase Index 0.3 CK-MB (CK-2) 1.732 Troponin I < 0.02 Total Protein 6.5 Albumin 2.7 L Urine Color Urine Appearance Urine pH Ur Specific [place] Urine Protein Urine Glucose (UA) Urine Ketones Urine Blood Urine Nitrite Urine Bilirubin Urine Urobilinogen Ur Leukocyte Esterase Blood Type Antibody Screen Crossmatch 08/04/17 08/04/17 08/05/17 17:40 20:57 08:10 WBC RBC Hgb Hct MCV MCH MCHC RDW Plt Count MPV Neutrophils % Lymphocytes % Monocytes % Eosinophils % Basophils % PT with INR 11.80 INR 1.04 PTT (Actin FS) 26.2 L VBG pH POC VBG pCO2 POC VBG pO2 Mixed VBG HCO3 Sodium Potassium Chloride Carbon Dioxide Anion Gap BUN Creatinine Creat Clearance w eGFR Random Glucose Lactic Acid 2.0 Calcium Phosphorus Magnesium Ferritin Total Bilirubin AST ALT Alkaline Phosphatase LD Total Creatine Kinase Creatine Kinase Index CK-MB (CK-2) Troponin I Total Protein Albumin Urine Color Urine Appearance Urine pH Ur Specific [place] Urine Protein Urine Glucose (UA) Urine Ketones Urine Blood Urine Nitrite Urine Bilirubin Urine Urobilinogen Ur Leukocyte Esterase Blood Type B POSITIVE Antibody Screen Negative Crossmatch See Detail 08/05/17 08/05/17 08/05/17 08:10 08:10 08:10 WBC 7.6 D RBC 3.22 L D Hgb 8.8 L D Hct 27.6 L D MCV 85.5 MCH 27.1 MCHC 31.7 L RDW 16.5 H Plt Count 270 MPV 7.9 Neutrophils % 71.2 Lymphocytes % 21.4 D Monocytes % 5.3 Eosinophils % 1.8 D Basophils % 0.3 PT with INR INR PTT (Actin FS) VBG pH POC VBG pCO2 POC VBG pO2 Mixed VBG HCO3 Sodium 141 Potassium 4.4 Chloride 108 H Carbon Dioxide 26 Anion Gap 7 L BUN 11 Creatinine 1.1 H Creat Clearance w eGFR 51.57 Random Glucose 130 H Lactic Acid Calcium 8.2 L Phosphorus 3.8 Magnesium 2.2 Ferritin 106.320 Total Bilirubin 0.3 AST 16 ALT 13 Alkaline Phosphatase 102 LD Total Creatine Kinase Creatine Kinase Index CK-MB (CK-2) Troponin I Total Protein 6.1 L Albumin 2.5 L Urine Color Urine Appearance Urine pH Ur Specific [place] Urine Protein Urine Glucose (UA) Urine Ketones Urine Blood Urine Nitrite Urine Bilirubin Urine Urobilinogen Ur Leukocyte Esterase Blood Type Antibody Screen Crossmatch 08/05/17 08:10 WBC RBC Hgb Hct MCV MCH MCHC RDW Plt Count MPV Neutrophils % Lymphocytes % Monocytes % Eosinophils % Basophils % PT with INR INR PTT (Actin FS) VBG pH POC VBG pCO2 POC VBG pO2 Mixed VBG HCO3 Sodium Potassium Chloride Carbon Dioxide Anion Gap BUN Creatinine Creat Clearance w eGFR Random Glucose Lactic Acid Calcium Phosphorus Magnesium Ferritin Total Bilirubin AST ALT Alkaline Phosphatase LD Total 178 Creatine Kinase Creatine Kinase Index CK-MB (CK-2) Troponin I Total Protein Albumin Urine Color Urine Appearance Urine pH Ur Specific [place] Urine Protein Urine Glucose (UA) Urine Ketones Urine Blood Urine Nitrite Urine Bilirubin Urine Urobilinogen Ur Leukocyte Esterase Blood Type Antibody Screen Crossmatch ASSESSMENT AND PLAN: 57 yo woman w/ pmh of HIV (CV4 809, VL 80 on 07/04; on HAART), DM2, HTN, CAD (s/p cardiac stent 04/15), BL SFA stents (04/17, 05/18), recently admitted to [facility] with LLE stent occlusion with ischemia, suspected from Plavix non compliance, s/ p stents placement complicated by compartment syndrome s/p fasciotomy, sent to rehab, signed herself out from rehab yesterday, was without wound vac and pain control came to hospital with ongoing leg purulent discharge, pain and found with Hb 5.9. -Suspected Sepsis secondary to wound infection LLE -Hypovolumia -Severe PAD with recent stent occlusion/LLE ischemia s/p stents placement -LLE compartment syndrome s/p fasciotomy -Acute anemia, suspect from ongoing blood from the wound, unlikely GI or other source at this point -IDDM -HTN -HIV on HAART -CAD s/p PCI 04/2015 Plan: ID input appreciated. Zosyn/vancomycin day 1. Wound/blood cultures. Close monitoring of vitals. Discussed with DR. Guzmán, recent clots with extensive PAD, high risk of LLE ischemia in the absence of anti-coagulation. Risks of withholding higher. Patient currently stable with no gross evidence of bleed or hemodynamic instability. Given higher risk of LE ischemia, will place on heparin drip and monitor closely for bleed. Repeat H/h later today. Vascular checks LE q4h. NPO after midnight for possible wound debridement of wound and additional management. WIll need wound Vac resumed eventually. Hospital out of NS. WIll place on LR and given 500 ml now. Continue pain control, resume gabapentin s/p 2 units PRBC with appropriate response. Monitor for now. FOBT but low suspicion to be the source. patient has her home HIV meds. REsumed. ISS, resume levemir based on blood sugars. Hold antihypertensives for now. Resume home psych meds. DVTPPx as above. Place on protonix for GIPPX Dispo pending vascular input and clinical course. Plan discussed with patient in detail, all questions answered. Total time spent including patient visit, discussion with RN, ID, vascular and co-ordination of care 35 min.
[2017-08-05] MEDS: BUDESONIDE/FORMETEROL FUMARATE 160/4.5 mcg INHALER IH SCH ×3 (10:34→23:52)
[2017-08-05] MEDS ORDERED: HEPARIN INFUSION - 25,000 UNITS/500 ML INFUS.BAG IVPB ONE (10:47)
[2017-08-05] MEDS ORDERED: HEPARIN NA (PORCINE) 5,000 UNITS/ML 1ML VIAL ONE (10:47)
[2017-08-05] MEDS ORDERED: INSULIN REGULAR HUMAN 100 UNITS/ML *VIAL ONE (11:51)
--- NOTE | 2017-08-05 12:28 | EKG ---
Test Reason : Blood Pressure : / mmHG Vent. Rate : 104 BPM Atrial Rate : 104 BPM P-R Int : 154 ms QRS Dur : 092 ms QT Int : 370 ms P-R-T Axes : 054 063 045 degrees QTc Int : 486 ms SINUS TACHYCARDIA POOR R WAVE PROGRESSION ABNORMAL ECG WHEN COMPARED WITH ECG OF 09-JUL-2017 05:25, QRS DURATION HAS DECREASED NOTE ERROR IN LEAD V4, RECOMMEND REPEAT Confirmed by ABIGAIL ZAMORA, MAYUR ([id number]) on 08/05/2017 12:28:13 PM Referred By: Confirmed By:MAYUR HAYES MD
[2017-08-05 12:54] VITALS: BMI 29.2
[2017-08-05] MEDS ORDERED: PIPERACIL/TAZOB 3.375 GM 3.375 GM/50 ML PREMIX IVPB ONE (17:23)
[2017-08-05 18:06] LABS: HEMATOCRIT 25.5 % (32.4-45.2); HEMOGLOBIN 8.3 GM/dL (10.7-15.3); MCH 27.7 pg (25.7-33.7); MCHC 32.6 g/dl (32.0-36.0); MEAN PLT VOLUME 8.3 fl (7.5-11.1); PLATELET COUNT 279 K/MM3 (134-434); RDW 16.7 % (11.6-15.6); WHITE BLOOD COUNT 7.5 K/mm3 (4.0-10.0)
[2017-08-05] MEDS ORDERED: PT OWN MED DRAWER 7, Y5N ONE ×3 (18:11→20:07)
[2017-08-05] MEDS ORDERED: VANCOMYCIN 1,250 MG in DEXTROSE 5%-WATER - 250 ML IVPB ONE (18:15)
[2017-08-05] MEDS: ELECTROLYTE-148 SOLN 1,000 ML IV SCH (18:15)
[2017-08-05] MEDS ORDERED: HEPARIN - 25,000 UNIT in SODIUM CHLORIDE 495 ML IV SCH (18:30)
[2017-08-05] MEDS ORDERED: ZOLPIDEM TARTRATE 5 MG TABLET PO PRN (18:38)
[2017-08-05] MEDS: PIPERACILLIN/TAZOB 4.5 GM 4.5 GM/100 ML BAG IVPB SCH (19:29)
[2017-08-05] MEDS ORDERED: MIRTAZAPINE 30 MG TABLET (FP) PO SCH (22:00)
[2017-08-05] MEDS: GABAPENTIN 300 MG CAPSULE (FP) PO SCH (23:51)
[2017-08-05] MEDS: DESCOVY PO SCH (23:51)
[2017-08-05] MEDS: MONTELUKAST NA 10 MG TABLET PO SCH (23:51)
[2017-08-05] MEDS: MIRTAZAPINE 15 MG TABLET (FP) PO SCH (23:51)
[2017-08-05] MEDS: DOLUTEGRAVIR SODIUM 50 MG TABLET PO SCH (23:52)
[2017-08-06] MEDS: PIPERACILLIN/TAZOB 4.5 GM 4.5 GM/100 ML BAG IVPB SCH ×2 (03:13→09:37)
[2017-08-06] MEDS: oxyCODONE HCL 5 MG TABLET PO PRN (04:58)
--- NOTE | 2017-08-06 05:49 | PN ---
Physical Exam: SUBJECTIVE: Patient seen and examined by me this AM - Started on heparin gtt yesterday 2/2 significant risk of reocclusion of popliteal stent. C/o neck pain, L leg pain yesterday. No active bleeding noted. - Currently on vanc/zosyn for abx coverage - Pt with no complaints overnight. Denies any hemoptysis, hematemesis, hematuria , melena, hematochezia, bruising. Denies f/c, CP, chest tightness, Ab pain, N/V , rashes or STONE/neuro symptoms. Good sensation/motor function in L leg. L leg dressing changed. OBJECTIVE: Vital Signs Intake & Output 08/03/17 08/04/17 08/05/17 08/06/17 23:59 23:59 23:59 23:59 Intake Total 117 Balance 117 Weight 81.647 kg 70.307 kg Period Temp Pulse Resp BP Sys/Cota Pulse Ox Last 24 Hr 97.2 F-98.8 F 78-92 16-20 106-123/57-78 97-100 GENERAL: Middle-aged woman, Awake, alert, and fully oriented, in no acute distress. HEAD: Normal with no signs of trauma. EYES: Pupils equal, round and reactive to light, extraocular movements intact, sclera anicteric, conjunctiva clear. No lid lag. EARS, NOSE, THROAT: Ears normal, nares patent, oropharynx clear without exudates. Moist mucous membranes. NECK: Normal range of motion, supple without lymphadenopathy, JVD, or masses. LUNGS: Trace rhonchi BL at bases. No wheezes, and no crackles. No accessory muscle use. HEART: Regular rate and rhythm, normal S1 and S2 without murmur, rub or gallop. ABDOMEN: Soft, nontender, not distended, normoactive bowel sounds, no guarding, no rebound, no masses. No hepatomegaly or splenomegaly. MUSCULOSKELETAL: Normal range of motion at all joints. No bony deformities or tenderness. No CVA tenderness. UPPER EXTREMITIES: 2+ pulses, warm, well-perfused. No cyanosis. No clubbing. No peripheral edema. LOWER EXTREMITIES: L leg with new bandage applied around lower calf. No drainage or erythema noted. 2+ pulses, warm, well-perfused BL. 2+ DP, PT pulses BL. 1+ L pitting edema still. NEUROLOGICAL: Cranial nerves II-XII intact. Normal speech. Gait not evaluated. 5/5 strength in all muscle groups. Still unable to dorsiflex L foot due to pain. Preserved sensation to light touch diffusely. PSYCHIATRIC: Cooperative. Good eye contact. Appropriate mood and affect. SKIN: Warm, dry, normal turgor, no rashes or lesions noted, normal capillary refill. Laboratory Results - last 24 hr CBC, BMP 08/06/17 07:00 08/05/17 16:50 08/05/17 08:10 08/05/17 08/05/17 08/05/17 08:10 08:10 08:10 WBC RBC Hgb Hct MCV MCH MCHC RDW Plt Count MPV Neutrophils % Lymphocytes % Monocytes % Eosinophils % Basophils % PT with INR 11.80 INR 1.04 PTT (Actin FS) 26.2 L Sodium 141 Potassium 4.4 Chloride 108 H Carbon Dioxide 26 Anion Gap 7 L BUN 11 Creatinine 1.1 H Creat Clearance w eGFR 51.57 POC Glucometer Random Glucose 130 H Calcium 8.2 L Phosphorus 3.8 Magnesium 2.2 Ferritin 106.320 Total Bilirubin 0.3 AST 16 ALT 13 Alkaline Phosphatase 102 LD Total Total Protein 6.1 L Albumin 2.5 L Stool Occult Blood 08/05/17 08/05/17 08/05/17 08:10 08:10 10:00 WBC 7.6 D RBC 3.22 L D Hgb 8.8 L D Hct 27.6 L D MCV 85.5 MCH 27.1 MCHC 31.7 L RDW 16.5 H Plt Count 270 MPV 7.9 Neutrophils % 71.2 Lymphocytes % 21.4 D Monocytes % 5.3 Eosinophils % 1.8 D Basophils % 0.3 PT with INR INR PTT (Actin FS) Sodium Potassium Chloride Carbon Dioxide Anion Gap BUN Creatinine Creat Clearance w eGFR POC Glucometer Random Glucose Calcium Phosphorus Magnesium Ferritin Total Bilirubin AST ALT Alkaline Phosphatase LD Total 178 Total Protein Albumin Stool Occult Blood Negative 08/05/17 08/05/17 08/05/17 11:33 16:50 16:50 WBC 7.5 RBC 3.00 L Hgb 8.3 L Hct 25.5 L MCV 85.0 MCH 27.7 MCHC 32.6 RDW 16.7 H Plt Count 279 MPV 8.3 Neutrophils % Lymphocytes % Monocytes % Eosinophils % Basophils % PT with INR INR PTT (Actin FS) 41.9 H D Sodium Potassium Chloride Carbon Dioxide Anion Gap BUN Creatinine Creat Clearance w eGFR POC Glucometer 195.79678 Random Glucose Calcium Phosphorus Magnesium Ferritin Total Bilirubin AST ALT Alkaline Phosphatase LD Total Total Protein Albumin Stool Occult Blood 08/05/17 08/05/17 08/06/17 17:20 23:54 02:30 WBC RBC Hgb Hct MCV MCH MCHC RDW Plt Count MPV Neutrophils % Lymphocytes % Monocytes % Eosinophils % Basophils % PT with INR INR PTT (Actin FS) 31.8 Sodium Potassium Chloride Carbon Dioxide Anion Gap BUN Creatinine Creat Clearance w eGFR POC Glucometer 125 112 Random Glucose Calcium Phosphorus Magnesium Ferritin Total Bilirubin AST ALT Alkaline Phosphatase LD Total Total Protein Albumin Stool Occult Blood Active Medications Generic Name Dose Route Start Last Admin Trade Name Freq PRN Reason Stop Dose Admin Budesonide/Formoterol Fumarate 1 puff 08/05/17 22:00 08/05/17 23:52 Symbicort 160/4.5mcg - IH 1 puff BID [facility] Administration Escitalopram Oxalate 10 mg 08/06/17 10:00 Lexapro - PO DAILY [facility] Gabapentin 600 mg 08/05/17 22:00 08/05/17 23:51 Neurontin - PO 600 mg BID [facility] Administration Heparin Sodium (Porcine) 1,000 unit 08/05/17 17:23 08/05/17 19:21 Heparin - IVPUSH 1,000 unit PRN PRN Administration Heparin Heparin Sodium (Porcine) 5,000 unit 08/05/17 17:23 08/06/17 03:37 Heparin - IVPUSH 5,000 unit PRN PRN Administration Heparin Parenteral Electrolytes 1,000 mls @ 75 mls/hr 08/05/17 17:23 08/05/17 18:15 Plasma-Lyte 148 - IV 75 mls/hr ASDIR [facility] Administration Piperacillin/Tazobactam/Dextrose 4.5 gm in 100 mls @ 200 mls/hr 08/05/17 18: 00 08/06/17 03:13 Zosyn 4.5gm Ivpb (Premix) IVPB 200 mls/hr Q8H-IV [facility] Administration Protocol Vancomycin HCl 1,250 mg/ 250 mls @ 166.667 mls/hr 08/06/17 10:00 Sodium Chloride IVPB DAILY [facility] Protocol Heparin Sodium (Porcine) 25, 500 mls @ 20 mls/hr 08/05/17 18:30 08/06/17 03: 40 000 unit/ Sodium Chloride IV 1,250 unit/hr TITR [facility] 25 mls/hr Protocol Titration 1,000 UNIT/HR Insulin Aspart 1 vial 08/05/17 22:00 08/05/17 23:55 Novolog Vial Sliding Scale - SQ Not Given ACHS [facility] Protocol Mirtazapine 30 mg 08/05/17 22:00 08/05/17 23:51 Remeron - PO 30 mg HS [facility] Administration Montelukast Sodium 10 mg 08/05/17 22:00 08/05/17 23:51 Singulair - PO 10 mg HS [facility] Administration Patient's Own 1 each 08/05/17 22:00 08/05/17 23:51 Medication_Descovy PO 1 each 200-25 Mg HS [facility] Administration Oxycodone HCl 5 mg 08/05/17 17:23 08/06/17 04:58 Roxicodone - PO 5 mg Q6H PRN Administration PAIN LEVEL 4 - 6 Zolpidem Tartrate 10 mg 08/05/17 18:38 Ambien - PO HS PRN INSOMNIA Microbiology 08/04/17 17:40 Blood - Peripheral Venous Blood Culture - Preliminary NO GROWTH OBTAINED AFTER 24 HOURS, INCUBATION TO CONTINUE FOR 4 DAYS. 08/04/17 17:40 Blood - Peripheral Venous Blood Culture - Preliminary NO GROWTH OBTAINED AFTER 24 HOURS, INCUBATION TO CONTINUE FOR 4 DAYS. 08/05/17 10:00 Leg - Left Lower Gram Stain - Final 08/05/17 10:00 Leg - Left Lower Gram Stain - Final CXR 2/3 - Poor inspiratory effort. No acute gross pathology noted. EKG 2/3 - Sinus tachy, Rate 104, QTC 486, Poor R wave progression ASSESSMENT/PLAN: 57 yo woman w/ pmh of HIV (CV4 809, VL 80 on 07/04; on HAART), DM2, HTN, CAD (s/p cardiac stent 04/15), BL SFA stents (04/17, 05/18), who presents from home due to swelling, purulent drainage and burning around fasciotomy site in L lower leg. #Wound infection at fasciotomy site - WBC normalized, afebrile - Vascular consult, Dr. Guzmán aware; Plan for discharge home with eventual wound vac application as outpt in 1-2 days - Trend WBC, fever - Wound culture + for corynebacteriam striatum; d/c abx per ID recs - IVFs - off abx - UA negative - ID consulted, aware - Pt resistent to SNF d/c; wants to go home with [facility] for wound care; Will discuss with SW in AM #Popliteal stent occlusion - Plan for lovenox bridge to coumadin per cardiology/vascular - Will require outpt INR monitoring as outpt; pt agreeable, has been on coumadin before - Counseled on dietary restrictions - Heparin gtt d/c';ed #Anemia - Hgb 8.6; likely bleed from fasciotomy site on 08/01 - FOBT negative - iron studies notable for iron deficiency - s/p 2 units PRBCs on admission - Trend H/H - Restart lovenox; Coumadin 2mg started tonight - Will continue ASA #CAD - nuclear stress test done in office 09/2016 showed no ischemia, normal LVEF - ASA per cards - Cont on statin - Trops negative #HTN - Hold HTN meds still; pt 90s systolic this AM - IVFs #DM -BGM ACHS - ISS #HLD -c/w home statin #HIV -c/w home HIV meds PPX Lovenox BID FEN IVFs - plasmalyte Daily BMPs Diabetic diet Plan for discharge home tomorrow with outpt f/u with wound care Plan discussed with attending, Dr. Jordin Davila, PGY1 Visit type - Emergency Visit Emergency Visit: Yes ED Registration Date: 08/04/17 Care time: The patient presented to the Emergency Department on the above date and was hospitalized for further evaluation of their emergent condition. - New Patient This patient is new to me today: No - Critical Care Critical Care patient: No
[2017-08-06 06:06] LABS: SERUM IRON SATURATION 7 % (15-55); TOTAL IRON BINDING CAPACITY 327 ug/dL (250-450); UIBC 303 ug/dL (131-425)
[2017-08-06] MEDS: INSULIN SLIDING SCALE (NOVOLOG) 1 VIAL SQ SCH ×4 (06:50→22:02)
--- NOTE | 2017-08-06 08:10 | PN ---
Teaching Attending Note Name of Resident: Andrea Davila ATTENDING PHYSICIAN STATEMENT Time of evaluation: I saw and evaluated the patient. I reviewed the resident's note and discussed the case with the resident. I agree with the resident's findings and plan as documented. SUBJECTIVE: Patient seen and examined. OBJECTIVE: Vital Signs Period Temp Pulse Resp BP Sys/Cota Pulse Ox Last 24 Hr 97.2 F-98.8 F 78-92 16-20 106-122/57-78 97-100 Intake & Output 08/03/17 08/04/17 08/05/17 08/06/17 23:59 23:59 23:59 23:59 Intake Total 117 1176 Balance 117 1176 Weight 180 lb 155 lb General: Extremities: Abdomen: Chest: Home Medication List Medication Instructions Recorded Confirmed Type Gabapentin [Neurontin] 600 mg PO BID 07/06/16 08/05/17 History Magnesium 200 mg PO DAILY PRN 07/06/16 08/05/17 History Montelukast Na [Singulair -] 10 mg PO HS 04/26/17 08/05/17 History Aspirin [Aspirin EC] 81 mg PO DAILY 05/02/17 08/05/17 History Budesonide/Formeterol Fumarate 1 puff IH BID 07/04/17 08/05/17 History [SYMBICORT 160/4.5mcg -] Oxybutynin Chloride [Oxybutynin 10 mg PO DAILY 07/04/17 08/05/17 History Chloride ER] Pravastatin Sodium [Pravachol -] 40 mg PO HS 07/09/17 08/05/17 History Active Medications Generic Name Dose Route Start Last Admin Trade Name Freq PRN Reason Stop Dose Admin Budesonide/Formoterol Fumarate 1 puff 08/05/17 22:00 08/05/17 23:52 Symbicort 160/4.5mcg - IH 1 puff BID JENNIFER Administration Escitalopram Oxalate 10 mg 08/06/17 10:00 Lexapro - PO DAILY JENNIFER Gabapentin 600 mg 08/05/17 22:00 08/05/17 23:51 Neurontin - PO 600 mg BID JENNIFER Administration Heparin Sodium (Porcine) 1,000 unit 08/05/17 17:23 08/05/17 19:21 Heparin - IVPUSH 1,000 unit PRN PRN Administration Heparin Heparin Sodium (Porcine) 5,000 unit 08/05/17 17:23 08/06/17 03:37 Heparin - IVPUSH 5,000 unit PRN PRN Administration Heparin Parenteral Electrolytes 1,000 mls @ 75 mls/hr 08/05/17 17:23 08/05/17 18:15 Plasma-Lyte 148 - IV 75 mls/hr ASDIR JENNIFER Administration Piperacillin/Tazobactam/Dextrose 4.5 gm in 100 mls @ 200 mls/hr 08/05/17 18: 00 08/06/17 03:13 Zosyn 4.5gm Ivpb (Premix) IVPB 200 mls/hr Q8H-IV JENNIFER Administration Protocol Vancomycin HCl 1,250 mg/ 250 mls @ 166.667 mls/hr 08/06/17 10:00 Sodium Chloride IVPB DAILY JENNIFER Protocol Heparin Sodium (Porcine) 25, 500 mls @ 20 mls/hr 08/05/17 18:30 08/06/17 03: 40 000 unit/ Sodium Chloride IV 1,250 unit/hr TITR JENNIFER 25 mls/hr Protocol Titration 1,000 UNIT/HR Insulin Aspart 1 vial 08/05/17 22:00 08/06/17 06:50 Novolog Vial Sliding Scale - SQ Not Given ACHS JENNIFER Protocol Mirtazapine 30 mg 08/05/17 22:00 08/05/17 23:51 Remeron - PO 30 mg HS JENNIFER Administration Montelukast Sodium 10 mg 08/05/17 22:00 08/05/17 23:51 Singulair - PO 10 mg HS JENNIFER Administration Patient's Own 1 each 08/05/17 22:00 08/05/17 23:51 Medication_Descovy PO 1 each 200-25 Mg HS JENNIFER Administration Oxycodone HCl 5 mg 08/05/17 17:23 08/06/17 04:58 Roxicodone - PO 5 mg Q6H PRN Administration PAIN LEVEL 4 - 6 Zolpidem Tartrate 10 mg 08/05/17 18:38 Ambien - PO HS PRN INSOMNIA Microbiology 08/04/17 17:40 Blood - Peripheral Venous Blood Culture - Preliminary NO GROWTH OBTAINED AFTER 24 HOURS, INCUBATION TO CONTINUE FOR 4 DAYS. 08/04/17 17:40 Blood - Peripheral Venous Blood Culture - Preliminary NO GROWTH OBTAINED AFTER 24 HOURS, INCUBATION TO CONTINUE FOR 4 DAYS. 08/05/17 10:00 Leg - Left Lower Gram Stain - Final 08/05/17 10:00 Leg - Left Lower Gram Stain - Final ASSESSMENT AND PLAN: 57 yo woman w/ pmh of HIV (CV4 809, VL 80 on 07/04; on HAART), DM2, HTN, CAD (s/p cardiac stent 04/15), BL SFA stents (04/17, 05/18), recently admitted to [facility] with LLE stent occlusion with ischemia, suspected from Plavix non compliance, s/ p stents placement complicated by compartment syndrome s/p fasciotomy, sent to rehab, signed herself out from rehab yesterday, was without wound vac and pain control came to hospital with ongoing leg purulent discharge, pain and found with Hb 5.9. -Suspected Sepsis secondary to wound infection LLE -Hypovolumia -Severe PAD with recent stent occlusion/LLE ischemia s/p stents placement -LLE compartment syndrome s/p fasciotomy -Acute anemia, suspect from ongoing blood from the wound, unlikely GI or other source at this point -IDDM -HTN -HIV on HAART -CAD s/p PCI 04/2015 Plan: ID input appreciated. Zosyn/vancomycin day 2. Follow up Wound/blood cultures. Close monitoring of vitals. Heparin drip per Dr. Guzmán has high risk for acute limb ischemia given her prior history and severe PAD. Resume ASA/plavix per Dr. Guzmán. Monitor H/H for now, no gross evidence of bleed. Vascular checks LE q4h. Follow up for possible wound debridement of wound and additional management. WIll need wound Vac resumed eventually. Hospital out of NS. Continue plasmalyte. Continue pain control, resume gabapentin s/p 2 units PRBC with appropriate response. Monitor for now. FOBT neg Patient has her home HIV meds. Resumed. ISS, resume levemir based on blood sugars. Hold antihypertensives for now. Continue home psych meds. . DVTPPx as above. Place on protonix for GIPPX Dispo pending vascular input and clinical course. Plan discussed with patient in detail, all questions answered.
[2017-08-06 08:43] LABS: BASO % 0.8 % (0-2.0); EOS % 3.1 % (0-4.5); HEMATOCRIT 26.1 % (32.4-45.2); HEMOGLOBIN 8.2 GM/dL (10.7-15.3); LYMPH % 31.9 % (8-40); MCH 27.1 pg (25.7-33.7); MCHC 31.5 g/dl (32.0-36.0); MEAN CELL VOLUME 85.9 fl (80-96); MEAN PLT VOLUME 7.9 fl (7.5-11.1); MONO % 6.9 % (3.8-10.2); NEUT % 57.3 % (42.8-82.8); PLATELET COUNT 285 K/MM3 (134-434); RBC 3.04 M/mm3 (3.60-5.2); RDW 16.8 % (11.6-15.6); WHITE BLOOD COUNT 6.9 K/mm3 (4.0-10.0)
[2017-08-06 08:53] LABS: INR 1.12 (0.82-1.09); PROTHROMBIN TIME (PATIENT) 12.6 SEC (9.98-11.88)
--- NOTE | 2017-08-06 08:53 | PN ---
Progress Note (short form) - Note Progress Note: 57 yo female well know to Vascular Surgery service, admitted s/p LLE calf fasciotomy (compartment syndrome) 07/11/17. She was discharged to SNF with wound care M-F with Dr. Guzmán. Pt had been treated with wound VAC at fasciotomy site at [facility] as well as hyperbaric tx at [facility]. Patient left SNF AMA yesterday because she felt she wasn't being treated properly. Patient states she was at home soaking her left foot (denies submerging wound in water) and thinks she saw a "bubble of pus" Once it popped, she described the fluid filled blister as a clear...medial wound near inferior pole. Still has left foot drop present prior too her dc from hospital. Non-toxic appearing. Her H/H was low on admit...received 2 PRBC. Denies n/v/f/c, CP, SOB, FLOYD, weak, dizzy or palpitations. Last Vital Signs Temp Pulse Resp BP Pulse Ox 98.8 F 85 18 110/60 100 08/06/17 06:00 08/06/17 06:00 08/06/17 06:00 08/06/17 06:00 08/05/17 17:00 CBC, BMP 08/06/17 07:00 Gen: alert. nad RLE: unremarkable LLE: foot drop present. Calf swelling still present (non-pitting). Lateral wound open. + granulation tissue/pink. Muscle viable. No foul odor. No erythema. Good wound contracture. Medial wound open. + granulation tissue/pink. Muscle viable. No foul odor. No purulent discharge. No erythema. Minimal fat necrosis to inferior pole/posterior border. Good wound contracture Problem List - Problems (1) Compartment syndrome of left lower extremity Assessment/Plan: Patient without any signs of infection. Wounds are healing VERY nicely as indicated by wound contracture/+ pink granulation tissue and viable muscle. Patient most likely became anemic during her VAC therapy. Based upon physical exam, no more need for VAC therapy. Reg diet No need for operative intervention Dressing changed on rounds with xeroform/4x4/kerlix OOB and ambulate Keep LLE elevated on pillow while seated in chair Please place an Ankle-Foot Orthosis Brace to LLE Heparin stopped and Lovenox 70mg BID started (spoke with Dr. Brenner) Monitor H/H Patient is cleared for discharge home from vascular surgery standpoint Above plan discussed with Dr. Guzmán and agrees Code(s): T79.A22A - TRAUMATIC COMPARTMENT SYNDROME OF LEFT LOWER EXTREMITY, INIT
[2017-08-06 09:06] LABS: ANION GAP 9 (8-16); BLOOD UREA NITROGEN 10 mg/dL (7-18); CALCIUM 8.6 mg/dL (8.5-10.1); CHLORIDE 107 mmol/L (98-107); CO2 27 mmol/L (21-32); CREATININE 1.2 mg/dL (0.55-1.02); GLUCOSE,RANDOM 110 mg/dL (74-106); POTASSIUM 4.3 mmol/L (3.5-5.1); SODIUM 143 mmol/L (136-145)
[2017-08-06] MEDS ORDERED: PT OWN MED DRAWER 7, Y5N ONE (09:21)
[2017-08-06] MEDS: ESCITALOPRAM OXALATE 10 MG TABLET (FP) PO SCH (09:37)
[2017-08-06] MEDS: GABAPENTIN 300 MG CAPSULE (FP) PO SCH ×2 (09:37→21:53)
[2017-08-06] MEDS: BUDESONIDE/FORMETEROL FUMARATE 160/4.5 mcg INHALER IH SCH ×2 (09:37→21:56)
[2017-08-06] MEDS: PANTOPRAZOLE 40 MG TABLET (FP) PO SCH (09:37)
[2017-08-06] MEDS ORDERED: VANCOMYCIN 1,250 MG in DEXTROSE 5%-WATER - 250 ML IVPB SCH (10:00)
[2017-08-06] MEDS ORDERED: VANCOMYCIN 1,250 MG in SODIUM CHLORIDE 250 ML IVPB SCH (10:00)
[2017-08-06] MEDS: ELECTROLYTE-148 SOLN 1,000 ML IV SCH ×2 (10:51→17:42)
--- NOTE | 2017-08-06 11:49 | PN ---
Progress Note (short form) - Note Progress Note: ID Seen by Dr Guzmán and not concerned regarding current infection Lizbetho and Chai Microbiology 08/04/17 16:20 Urine - Urine Clean Catch Urine Culture - Final NO GROWTH OBTAINED 08/04/17 17:40 Blood - Peripheral Venous Blood Culture - Preliminary NO GROWTH OBTAINED AFTER 24 HOURS, INCUBATION TO CONTINUE FOR 4 DAYS. 08/04/17 17:40 Blood - Peripheral Venous Blood Culture - Preliminary NO GROWTH OBTAINED AFTER 24 HOURS, INCUBATION TO CONTINUE FOR 4 DAYS. Selected Entries 08/06/17 09:00 Temperature 98.1 F Pulse Rate 76 Respiratory 18 Rate Blood Pressure 97/57 Laboratory Tests 08/06/17 07:00 WBC 6.9 Hgb 8.2 L Hct 26.1 L Plt Count 285 Assessment Wound looks well SOme fat necrosis No gross infection Anemia blood transfusion Plan STOP ANTIBIOTICS DISCHARGE PLANNING Problem List - Problems (1) Compartment syndrome of left lower extremity Code(s): T79.A22A - TRAUMATIC COMPARTMENT SYNDROME OF LEFT LOWER EXTREMITY, INIT (2) History of fasciotomy Code(s): Z98.890 - OTHER SPECIFIED POSTPROCEDURAL STATES (3) CAD S/P percutaneous coronary angioplasty Code(s): I25.10 - ATHSCL HEART DISEASE OF [place] CORONARY ARTERY W/O ANG PCTRS; Z98.61 - CORONARY ANGIOPLASTY STATUS (4) DM w/o complication type II Code(s): E11.9 - TYPE 2 DIABETES MELLITUS WITHOUT COMPLICATIONS (5) Human immunodeficiency virus (HIV) disease Code(s): B20 - HUMAN IMMUNODEFICIENCY VIRUS [HIV] DISEASE (6) Hyperlipemia Code(s): E78.5 - HYPERLIPIDEMIA, UNSPECIFIED Qualifiers: Hyperlipidemia type: Mixed hyperlipidemia Qualified Code(s): E78.2 - Mixed hyperlipidemia (7) PAD (peripheral artery disease) Code(s): I73.9 - PERIPHERAL VASCULAR DISEASE, UNSPECIFIED (8) Tobacco use disorder Code(s): Z72.0 - TOBACCO USE
--- NOTE | 2017-08-06 12:50 | PN ---
Progress Note, Physician - Current Medication List Current Medications: Active Medications Budesonide/Formoterol Fumarate (Symbicort 160/4.5mcg -) 1 puff IH BID [facility] Last Admin: 08/06/17 09:37 Dose: 1 puff Escitalopram Oxalate (Lexapro -) 10 mg PO DAILY [facility] Last Admin: 08/06/17 09:37 Dose: 10 mg Gabapentin (Neurontin -) 600 mg PO BID [facility] Last Admin: 08/06/17 09:37 Dose: 600 mg Parenteral Electrolytes (Plasma-Lyte 148 -) 1,000 mls @ 75 mls/hr IV ASDIR [facility] Last Admin: 08/06/17 10:51 Dose: 75 mls/hr Insulin Aspart (Novolog Vial Sliding Scale -) 1 vial SQ ACHS [facility] PRN Reason: Protocol Last Admin: 08/06/17 11:58 Dose: Not Given Mirtazapine (Remeron -) 30 mg PO HS [facility] Last Admin: 08/05/17 23:51 Dose: 30 mg Montelukast Sodium (Singulair -) 10 mg PO HS [facility] Last Admin: 08/05/17 23:51 Dose: 10 mg Patient's Own Medication_Descovy 200-25 Mg 1 each PO HS [facility] Last Admin: 08/05/17 23:51 Dose: 1 each Oxycodone HCl (Roxicodone -) 5 mg PO Q6H PRN PRN Reason: PAIN LEVEL 4 - 6 Last Admin: 08/06/17 04:58 Dose: 5 mg Pantoprazole Sodium (Protonix -) 40 mg PO DAILY [facility] Last Admin: 08/06/17 09:37 Dose: 40 mg Zolpidem Tartrate (Ambien -) 10 mg PO HS PRN PRN Reason: INSOMNIA - Objective Vital Signs: Vital Signs Temperature 98.1 F 08/06/17 09:00 Pulse Rate 76 08/06/17 09:00 Respiratory Rate 18 08/06/17 09:00 Blood Pressure 97/57 08/06/17 09:00 O2 Sat by Pulse Oximetry (%) 100 08/05/17 17:00 Labs: CBC, BMP 08/06/17 07:00 08/06/17 07:00 INR, PTT INR 1.12 (0.82-1.09) 08/06/17 07:00 Assessment/Plan 56-year-old woman with a history of hypertension, hyperlipidemia, diabetes type II, HIV, asthma, H. pylori, COPD, smoker, coronary artery disease status post stent to LAD April 2015 with drug-eluting stent, total knee replacement, admitted [facility] for LE pain found to have b/l SFA occlusion, underwent VALVE SEATER OPERATOR LLE and is Dec VALVE SEATER OPERATOR RLE admitted 06/2017 with b/l LE pain found to have b/l occluded SFA. Underwent VALVE SEATER OPERATOR LLE then fasciotomy LLE for possible compartment syndrome then went to rehab, now readmitted for oozing from prior surgical site and anemia. Antiplatelet management- -pt only requires single antiplatelet therapy for her prior coronary stent. This can be either ASA 81mg daily or Plavix. If dual antiplatelets are needed for her PAD and prior peripheral interventions then this is acceptable too, but in terms of coronary stents only 1 antiplatelet is required at this point -Being that she had thrombosis of her prior peripheral stents and as per the plan of her prior admission it seems that Aspirin + full AC is most appropriate without Plavix. PAD-b/l occluded SFA -no history of afib or aflutter, none seen on review of ekg/telemetry on last admission -pt had recent VALVE SEATER OPERATOR b/l SFA and was not taking her Plavix (only ASA) and continued to smoke -unclear if this is localized thrombosis with thrombus propagation or an embolic event -she has not had a documented AFib/aflutter episode as far as I have seen therefore I would favor a localized thrombotic event as the source especially in light of recent VALVE SEATER OPERATOR for her PAD and non-adherence with Plavix and continued smoking -she was on full AC when she was discharged to rehab but she states it was stopped for some reason -would resume Aspirin 81mg daily and full AC-- the plan as of last admission was for NOAC on discharge, however in light of anemia, Coumadin is likely better choice given its reversibility if needed, can bridge Lovenox to coumadin as outpatient CAD-stent LAD 2014 -stable -nuclear stress test done in office 09/2016 showed no ischemia, normal LVEF -cont statin -antiplatelet as above -not on bblocker as outpatient due to COPD and smoking HTN-running low normal -monitor for now
--- NOTE | 2017-08-06 15:41 | PN ---
Teaching Attending Note Name of Resident: Andrea Davila ATTENDING PHYSICIAN STATEMENT Time of evaluation: 11:15 AM I saw and evaluated the patient. I reviewed the resident's note and discussed the case with the resident. I agree with the resident's findings and plan as documented. SUBJECTIVE: Patient seen and examined. Denies pain at leg site, fevers, chills or new complaints. OBJECTIVE: Vital Signs Period Temp Pulse Resp BP Sys/Cota Pulse Ox Last 24 Hr 97.2 F-98.8 F 76-88 18-20 97-115/57-63 96-100 Intake & Output 08/03/17 08/04/17 08/05/17 08/06/17 23:59 23:59 23:59 23:59 Intake Total 117 1886 Balance 117 1886 Weight 180 lb 155 lb General: sitting in bed in no acute distress Extremities: left foot edema improved, erythema resolved, Wound care just done by surgery, deferred detailed exam Home Medication List Medication Instructions Recorded Confirmed Type Gabapentin [Neurontin] 600 mg PO BID 07/06/16 08/05/17 History Magnesium 200 mg PO DAILY PRN 07/06/16 08/05/17 History Montelukast Na [Singulair -] 10 mg PO HS 04/26/17 08/05/17 History Aspirin [Aspirin EC] 81 mg PO DAILY 05/02/17 08/05/17 History Budesonide/Formeterol Fumarate 1 puff IH BID 07/04/17 08/05/17 History [SYMBICORT 160/4.5mcg -] Oxybutynin Chloride [Oxybutynin 10 mg PO DAILY 07/04/17 08/05/17 History Chloride ER] Pravastatin Sodium [Pravachol -] 40 mg PO HS 07/09/17 08/05/17 History Active Medications Generic Name Dose Route Start Last Admin Trade Name Freq PRN Reason Stop Dose Admin Budesonide/Formoterol Fumarate 1 puff 08/05/17 22:00 08/06/17 09:37 Symbicort 160/4.5mcg - IH 1 puff BID JENNIFER Administration Enoxaparin Sodium 70 mg 08/06/17 16:00 Lovenox - SQ 08/06/17 16:01 ONCE ONE Enoxaparin Sodium 70 mg 08/07/17 10:00 Lovenox - SQ BID JENNIFER Escitalopram Oxalate 10 mg 08/06/17 10:00 08/06/17 09:37 Lexapro - PO 10 mg DAILY JENNIFER Administration Gabapentin 600 mg 08/05/17 22:00 08/06/17 09:37 Neurontin - PO 600 mg BID JENNIFER Administration Parenteral Electrolytes 1,000 mls @ 75 mls/hr 08/05/17 17:23 08/06/17 10:51 Plasma-Lyte 148 - IV 75 mls/hr ASDIR JENNIFER Administration Insulin Aspart 1 vial 08/05/17 22:00 08/06/17 11:58 Novolog Vial Sliding Scale - SQ Not Given ACHS [facility] Protocol Mirtazapine 30 mg 08/05/17 22:00 08/05/17 23:51 Remeron - PO 30 mg HS JENNIFER Administration Montelukast Sodium 10 mg 08/05/17 22:00 08/05/17 23:51 Singulair - PO 10 mg HS JENNIFER Administration Patient's Own 1 each 08/05/17 22:00 08/05/17 23:51 Medication_Descovy PO 1 each 200-25 Mg HS JENNIFER Administration Oxycodone HCl 5 mg 08/05/17 17:23 08/06/17 04:58 Roxicodone - PO 5 mg Q6H PRN Administration PAIN LEVEL 4 - 6 Pantoprazole Sodium 40 mg 08/06/17 10:00 08/06/17 09:37 Protonix - PO 40 mg DAILY JENNIFER Administration Zolpidem Tartrate 10 mg 08/05/17 18:38 Ambien - PO HS PRN INSOMNIA Laboratory Results - last 24 hr 08/05/17 08/05/17 08/05/17 08:10 16:50 16:50 WBC 7.5 RBC 3.00 L Hgb 8.3 L Hct 25.5 L MCV 85.0 MCH 27.7 MCHC 32.6 RDW 16.7 H Plt Count 279 MPV 8.3 Neutrophils % Lymphocytes % Monocytes % Eosinophils % Basophils % PT with INR INR PTT (Actin FS) 41.9 H D Sodium Potassium Chloride Carbon Dioxide Anion Gap BUN Creatinine POC Glucometer Random Glucose Calcium Iron 24 L TIBC 327 Iron Saturation 7 L 08/05/17 08/05/17 08/06/17 17:20 23:54 02:30 WBC RBC Hgb Hct MCV MCH MCHC RDW Plt Count MPV Neutrophils % Lymphocytes % Monocytes % Eosinophils % Basophils % PT with INR INR PTT (Actin FS) 31.8 Sodium Potassium Chloride Carbon Dioxide Anion Gap BUN Creatinine POC Glucometer 125 112 Random Glucose Calcium Iron TIBC Iron Saturation 08/06/17 08/06/17 08/06/17 06:33 07:00 07:00 WBC 6.9 RBC 3.04 L Hgb 8.2 L Hct 26.1 L MCV 85.9 MCH 27.1 MCHC 31.5 L RDW 16.8 H Plt Count 285 MPV 7.9 Neutrophils % 57.3 Lymphocytes % 31.9 D Monocytes % 6.9 Eosinophils % 3.1 Basophils % 0.8 PT with INR 12.60 H INR 1.12 PTT (Actin FS) Sodium Potassium Chloride Carbon Dioxide Anion Gap BUN Creatinine POC Glucometer 156 Random Glucose Calcium Iron TIBC Iron Saturation 08/06/17 08/06/17 08/06/17 07:00 08:40 11:57 WBC RBC Hgb Hct MCV MCH MCHC RDW Plt Count MPV Neutrophils % Lymphocytes % Monocytes % Eosinophils % Basophils % PT with INR INR PTT (Actin FS) 62.9 H D Sodium 143 Potassium 4.3 Chloride 107 Carbon Dioxide 27 Anion Gap 9 BUN 10 Creatinine 1.2 H POC Glucometer 140 Random Glucose 110 H Calcium 8.6 Iron TIBC Iron Saturation Microbiology 08/05/17 10:00 Leg - Left Lower Gram Stain - Final 08/05/17 10:00 Leg - Left Lower Wound Culture - Preliminary Diphtheroid/Corynebacterium 08/05/17 10:00 Leg - Left Lower Gram Stain - Final 08/05/17 10:00 Leg - Left Lower Wound Culture - Preliminary Diphtheroid/Corynebacterium 08/04/17 16:20 Urine - Urine Clean Catch Urine Culture - Final NO GROWTH OBTAINED 08/04/17 17:40 Blood - Peripheral Venous Blood Culture - Preliminary NO GROWTH OBTAINED AFTER 24 HOURS, INCUBATION TO CONTINUE FOR 4 DAYS. 08/04/17 17:40 Blood - Peripheral Venous Blood Culture - Preliminary NO GROWTH OBTAINED AFTER 24 HOURS, INCUBATION TO CONTINUE FOR 4 DAYS. ASSESSMENT AND PLAN: 57 yo woman w/ pmh of HIV (CV4 809, VL 80 on 07/04; on HAART), DM2, HTN, CAD (s/p cardiac stent 04/15), BL SFA stents (04/17, 05/18), recently admitted to [facility] with LLE stent occlusion with ischemia, suspected from Plavix non compliance, s/ p stents placement complicated by compartment syndrome s/p fasciotomy, sent to rehab, signed herself out from rehab yesterday, was without wound vac and pain control came to hospital with ongoing leg purulent discharge, pain and found with Hb 5.9. -Suspected Sepsis secondary to wound infection LLE -Hypovolumia -Severe PAD with recent stent occlusion/LLE ischemia s/p stents placement -LLE compartment syndrome s/p fasciotomy -Acute anemia, suspect from ongoing blood from the wound due to the vac, unlikely GI or other source at this point -IDDM -HTN -HIV on HAART -CAD s/p PCI 04/2015 Plan: Seen by vascular, no concerns for wound infection or need for surgical intervention. Wound bleeding likely related to the wound vac as discussed. To hold off on resuming wound vac for now, to be resumed in 1-2 days as discussed with DR. Nolasco. Patient with recent acute LLE ischemia, thrombus mediated as discussed with Dr. Nolasco. Was seen by Dr. Fritz, Dr. Yuan, and recommended ASA and anticoagulation with lovenox/coumadin vs eliquis. She was discharged on lovenox with eventual plan to transition to oral agent outpatient by Dr. Nolasco. Discussed with Dr. Nolasco, Dr. Fritz, will resume ASA 81, and place on lovenox/ coumadin bridging. Avoid NOACs currently given no clear evidence with limb ischemia/arterial thrombosis and now with anemia, needs agent that can be revered. Risks/benefits and need for compliance/dietary changes discussed with patient. Heparin drip d/anders. Start lovenox. Lovenox teaching, dietary consult for coumadin teaching. WIll need to co- ordinate PCP follow up for INR Check or with Dr. Nolasco on discharge. s/p 2 units PRBC with appropriate response, suspect from bleeding at the wound site from the vac. Will need close CBC monitoring outpatient. Patient adamantly refuses rehab. Wound care teaching with patient and family if available. Discuss with social work for visiting nurse for wound vac 3 times a week and outpatient follow up at [facility]ound care center. Discussed with ID, monitor for antibiotics and monitor today. HOld anti-hypertensives, gentle hydration. HOme psyh/HIV meds. Oxycodone prn. PT eval. Dispo in 24 hours pending PT eval, lovenox/wound care teaching and outpatient arrangements for INR check, CBC monitoring and wound care follow up. Plan discussed with patient in detail, all questions answered. Total time spent in patient visit, discussion with RN, DR. nolasco, Dr. Fritz and co-ordination of care 45 min.
[2017-08-06] MEDS ORDERED: ENOXAPARIN NA (PORCINE) 40 MG/0.4 ML DISP.SYRIN SQ ONE (16:00)
[2017-08-06] MEDS: ASPIRIN COATED 81 MG TABLET.EC PO SCH (16:27)
[2017-08-06 16:40] LABS: HEMATOCRIT 26.9 % (32.4-45.2); HEMOGLOBIN 8.6 GM/dL (10.7-15.3); MCH 27.8 pg (25.7-33.7); MCHC 32.1 g/dl (32.0-36.0); MEAN CELL VOLUME 86.6 fl (80-96); PLATELET COUNT 285 K/MM3 (134-434); RBC 3.11 M/mm3 (3.60-5.2)
[2017-08-06] MEDS ORDERED: WARFARIN NA 2 MG TABLET (UD) PO SCH (18:00)
[2017-08-06] MEDS: MONTELUKAST NA 10 MG TABLET PO SCH (21:53)
[2017-08-06] MEDS: DESCOVY PO SCH (21:54)
[2017-08-06] MEDS: MIRTAZAPINE 15 MG TABLET (FP) PO SCH (21:54)
[2017-08-06] MEDS: DOLUTEGRAVIR SODIUM 50 MG TABLET PO SCH (21:55)
[2017-08-07 06:06] LABS: TRANSFERRIN 278 mg/dL (200-370)
--- NOTE | 2017-08-07 06:20 | PN ---
Physical Exam: SUBJECTIVE: Patient seen and examined by me this AM - No major overnight events. Pt with no complaints, no pain in L leg, mild increased in L pedal edema. Denies f/c, STONE/lightheadness, CP, cough, ab pain, diarrhea, dysuria, hematuria, melena, hematochezia. Plan for potential discharge today w/ outpt f/u with wound care. OBJECTIVE: Vital Signs Intake & Output 08/04/17 08/05/17 08/06/17 08/07/17 23:59 23:59 23:59 23:59 Intake Total 117 4536 Balance 117 4536 Weight 81.647 kg 70.307 kg Period Temp Pulse Resp BP Sys/Cota Pulse Ox Last 24 Hr 98.1 F-99.1 F 76-95 18-18 97-135/57-83 96-96 GENERAL: Middle-aged woman, Awake, alert, and fully oriented, in no acute distress. A&Ox3. HEAD: Normal with no signs of trauma. EYES: Pupils equal, round and reactive to light, extraocular movements intact, sclera anicteric, conjunctiva clear. No lid lag. EARS, NOSE, THROAT: Ears normal, nares patent, oropharynx clear without exudates. Moist mucous membranes. Poor dentition. NECK: Normal range of motion, supple without lymphadenopathy, JVD, or masses. LUNGS: CTABL. No wheezes, and no crackles. No accessory muscle use. HEART: Regular rate and rhythm, normal S1 and S2 without murmur, rub or gallop. ABDOMEN: Soft, nontender, not distended, normoactive bowel sounds, no guarding, no rebound, no masses. No hepatomegaly or splenomegaly. MUSCULOSKELETAL: Normal range of motion at all joints. No bony deformities or tenderness. No CVA tenderness. UPPER EXTREMITIES: 2+ pulses, warm, well-perfused. No cyanosis. No clubbing. No peripheral edema. LOWER EXTREMITIES: still with L leg with bandage applied around lower calf. No drainage, bleeding or erythema noted. 2+ pulses, warm, well-perfused BL. 2+ DP, PT pulses BL. 1+ L pedal edema, worse today. NEUROLOGICAL: Cranial nerves II-XII intact. Normal speech. Gait not evaluated. 5/5 strength in all muscle groups. Cannot dorsiflex L foot due to pain. Preserved sensation to light touch diffusely. PSYCHIATRIC: Cooperative. Good eye contact. Appropriate mood and affect. SKIN: Warm, dry, normal turgor, no rashes or lesions noted, normal capillary refill. Laboratory Results - last 24 hr CBC, BMP CBC, BMP 08/07/17 06:45 08/07/17 06:45 08/06/17 15:00 08/06/17 07:00 08/05/17 08/05/17 08/06/17 08:10 08:10 06:33 WBC RBC Hgb Hct MCV MCH MCHC RDW Plt Count MPV Neutrophils % Lymphocytes % Monocytes % Eosinophils % Basophils % Haptoglobin 285 H PT with INR INR PTT (Actin FS) Sodium Potassium Chloride Carbon Dioxide Anion Gap BUN Creatinine POC Glucometer 156 Random Glucose Calcium Transferrin 278 08/06/17 08/06/17 08/06/17 07:00 07:00 07:00 WBC 6.9 RBC 3.04 L Hgb 8.2 L Hct 26.1 L MCV 85.9 MCH 27.1 MCHC 31.5 L RDW 16.8 H Plt Count 285 MPV 7.9 Neutrophils % 57.3 Lymphocytes % 31.9 D Monocytes % 6.9 Eosinophils % 3.1 Basophils % 0.8 Haptoglobin PT with INR 12.60 H INR 1.12 PTT (Actin FS) Sodium 143 Potassium 4.3 Chloride 107 Carbon Dioxide 27 Anion Gap 9 BUN 10 Creatinine 1.2 H POC Glucometer Random Glucose 110 H Calcium 8.6 Transferrin 08/06/17 08/06/17 08/06/17 08:40 11:57 15:00 WBC 6.0 RBC 3.11 L Hgb 8.6 L Hct 26.9 L MCV 86.6 MCH 27.8 MCHC 32.1 RDW 17.0 H Plt Count 285 MPV 8.0 Neutrophils % Lymphocytes % Monocytes % Eosinophils % Basophils % Haptoglobin PT with INR INR PTT (Actin FS) 62.9 H D Sodium Potassium Chloride Carbon Dioxide Anion Gap BUN Creatinine POC Glucometer 140 Random Glucose Calcium Transferrin 08/06/17 08/06/17 16:29 22:00 WBC RBC Hgb Hct MCV MCH MCHC RDW Plt Count MPV Neutrophils % Lymphocytes % Monocytes % Eosinophils % Basophils % Haptoglobin PT with INR INR PTT (Actin FS) Sodium Potassium Chloride Carbon Dioxide Anion Gap BUN Creatinine POC Glucometer 187 194 Random Glucose Calcium Transferrin Active Medications Generic Name Dose Route Start Last Admin Trade Name Freq PRN Reason Stop Dose Admin Aspirin 81 mg 08/06/17 16:00 08/06/17 16:27 Ecotrin - PO 81 mg DAILY JENNIFER Administration Budesonide/Formoterol Fumarate 1 puff 08/05/17 22:00 08/06/17 21:56 Symbicort 160/4.5mcg - IH 1 puff BID JENNIFER Administration Enoxaparin Sodium 70 mg 08/07/17 10:00 Lovenox - SQ BID JENNIFER Escitalopram Oxalate 10 mg 08/06/17 10:00 08/06/17 09:37 Lexapro - PO 10 mg DAILY JENNIFER Administration Gabapentin 600 mg 08/05/17 22:00 08/06/17 21:53 Neurontin - PO 600 mg BID JENNIFER Administration Parenteral Electrolytes 1,000 mls @ 75 mls/hr 08/05/17 17:23 08/06/17 17:42 Plasma-Lyte 148 - IV Not Given ASDIR JENNIFER Insulin Aspart 1 vial 08/05/17 22:00 08/06/17 22:02 Novolog Vial Sliding Scale - SQ 2 units ACHS JENNIFER Administration Protocol Mirtazapine 30 mg 08/05/17 22:00 08/06/17 21:54 Remeron - PO 30 mg HS JENNIFER Administration Montelukast Sodium 10 mg 08/05/17 22:00 08/06/17 21:53 Singulair - PO 10 mg HS JENNIFER Administration Patient's Own 1 each 08/05/17 22:00 08/06/17 21:54 Medication_Descovy PO 1 each 200-25 Mg HS JENNIFER Administration Oxycodone HCl 5 mg 08/05/17 17:23 08/06/17 04:58 Roxicodone - PO 5 mg Q6H PRN Administration PAIN LEVEL 4 - 6 Pantoprazole Sodium 40 mg 08/06/17 10:00 08/06/17 09:37 Protonix - PO 40 mg DAILY JENNIFER Administration Warfarin Sodium 2 mg 08/06/17 18:00 08/06/17 17:46 Coumadin - PO 2 mg DAILY@1800 JENNIFER Administration Zolpidem Tartrate 10 mg 08/05/17 18:38 08/06/17 21:53 Ambien - PO 10 mg HS PRN Administration INSOMNIA Microbiology 08/04/17 17:40 Blood - Peripheral Venous Blood Culture - Preliminary NO GROWTH OBTAINED AFTER 48 HOURS, INCUBATION TO CONTINUE FOR 3 DAYS. 08/04/17 17:40 Blood - Peripheral Venous Blood Culture - Preliminary NO GROWTH OBTAINED AFTER 48 HOURS, INCUBATION TO CONTINUE FOR 3 DAYS. 08/05/17 10:00 Leg - Left Lower Gram Stain - Final 08/05/17 10:00 Leg - Left Lower Wound Culture - Preliminary Corynebacterium Striatum 08/05/17 10:00 Leg - Left Lower Gram Stain - Final 08/05/17 10:00 Leg - Left Lower Wound Culture - Preliminary Diphtheroid/Corynebacterium 08/04/17 16:20 Urine - Urine Clean Catch Urine Culture - Final NO GROWTH OBTAINED CXR 2/3 - Poor inspiratory effort. No acute gross pathology noted. EKG /3 - Sinus tachy, Rate 104, QTC 486, Poor R wave progression ASSESSMENT/PLAN: 57 yo woman w/ pmh of HIV (CV4 809, VL 80 on 07/04; on HAART), DM2, HTN, CAD (s/p cardiac stent 04/15), BL SFA stents (04/17, 05/18), who presents from home due to swelling, purulent drainage and burning around fasciotomy site in L lower leg. #Wound infection at fasciotomy site - WBC normalized, afebrile - Vascular consult, Dr. Guzmán aware; Plan for discharge home with eventual wound vac application as outpt in 1-2 days - Trend WBC, fever - Wound culture + for corynebacteriam striatum; d/c abx per ID recs - IVFs - off abx - UA negative - ID consulted, aware - Pt resistent to SNF d/c; wants to go home with [facility] for wound care; Will discuss with SW in AM #Popliteal stent occlusion - Plan for lovenox bridge to coumadin per cardiology/vascular - Will require outpt INR monitoring as outpt; pt agreeable, has been on coumadin before - Counseled on dietary restrictions - Heparin gtt d/c';ed #Anemia - Hgb 8.6; likely bleed from fasciotomy site on wed08/01 - FOBT negative - iron studies notable for iron deficiency - s/p 2 units PRBCs on admission - Trend H/H - Restart lovenox; Coumadin 2mg started tonight - Will continue ASA #CAD - nuclear stress test done in office 09/2016 showed no ischemia, normal LVEF - ASA per cards - Cont on statin - Trops negative #HTN - Hold HTN meds still; pt 90s systolic this AM - IVFs #DM -BGM ACHS - ISS #HLD -c/w home statin #HIV -c/w home HIV meds PPX Lovenox BID FEN IVFs - plasmalyte Daily BMPs Diabetic diet Plan for discharge home tomorrow with outpt f/u with wound care Plan discussed with attending, Dr. Jordin Davila, PGY1
[2017-08-07] MEDS: INSULIN SLIDING SCALE (NOVOLOG) 1 VIAL SQ SCH ×2 (06:22→12:14)
[2017-08-07 08:11] LABS: INR 1.04 (0.82-1.09); PROTHROMBIN TIME (PATIENT) 11.7 SEC (9.98-11.88)
[2017-08-07 08:21] LABS: HEMATOCRIT 30.5 % (32.4-45.2); HEMOGLOBIN 9.6 GM/dL (10.7-15.3); MCH 27.3 pg (25.7-33.7); MCHC 31.5 g/dl (32.0-36.0); MEAN CELL VOLUME 86.5 fl (80-96); MEAN PLT VOLUME 7.6 fl (7.5-11.1); PLATELET COUNT 316 K/MM3 (134-434); RBC 3.53 M/mm3 (3.60-5.2); RDW 16.9 % (11.6-15.6); WHITE BLOOD COUNT 5.6 K/mm3 (4.0-10.0)
[2017-08-07 08:33] LABS: ANION GAP 9 (8-16); BLOOD UREA NITROGEN 7 mg/dL (7-18); CALCIUM 8.5 mg/dL (8.5-10.1); CHLORIDE 107 mmol/L (98-107); CO2 27 mmol/L (21-32); CREATININE 1.1 mg/dL (0.55-1.02); GLUCOSE,RANDOM 113 mg/dL (74-106); POTASSIUM 4.7 mmol/L (3.5-5.1); SODIUM 143 mmol/L (136-145)
[2017-08-07] MEDS ORDERED: PT OWN MED DRAWER 7, Y5N ONE (09:21)
[2017-08-07] MEDS: ESCITALOPRAM OXALATE 10 MG TABLET (FP) PO SCH (09:24)
[2017-08-07] MEDS: GABAPENTIN 300 MG CAPSULE (FP) PO SCH (09:24)
[2017-08-07] MEDS: PANTOPRAZOLE 40 MG TABLET (FP) PO SCH (09:25)
[2017-08-07] MEDS: ASPIRIN COATED 81 MG TABLET.EC PO SCH (09:25)
[2017-08-07] MEDS: BUDESONIDE/FORMETEROL FUMARATE 160/4.5 mcg INHALER IH SCH (09:26)
[2017-08-07] MEDS: oxyCODONE HCL 5 MG TABLET PO PRN (09:33)
[2017-08-07] MEDS ORDERED: ENOXAPARIN NA (PORCINE) 60 MG/0.6 ML DISP.SYRIN SQ SCH (10:00)
[2017-08-07 11:33] VITALS: BP 126/81; PULSE 88; TEMP 97.3
--- NOTE | 2017-08-07 13:42 | DS ---
Physical Exam: SUBJECTIVE: Patient seen and examined by me this AM - No major overnight events. Pt with no complaints, no pain in L leg, mild increased in L pedal edema. Denies f/c, STONE/lightheadness, CP, cough, ab pain, diarrhea, dysuria, hematuria, melena, hematochezia. Plan for potential discharge today w/ outpt f/u with wound care. OBJECTIVE: Vital Signs Intake & Output 08/04/17 08/05/17 08/06/17 08/07/17 23:59 23:59 23:59 23:59 Intake Total 117 3936 1450 Balance 117 3936 1450 Weight 81.647 kg 70.307 kg Period Temp Pulse Resp BP Sys/Cota Pulse Ox Last 24 Hr 97.3 F-99.1 F 77-95 -18 107-135/65-83 96 PHYSICAL EXAM GENERAL: Middle-aged woman, Awake, alert, and fully oriented, in no acute distress. A&Ox3. HEAD: Normal with no signs of trauma. EYES: Pupils equal, round and reactive to light, extraocular movements intact, sclera anicteric, conjunctiva clear. No lid lag. EARS, NOSE, THROAT: Ears normal, nares patent, oropharynx clear without exudates. Moist mucous membranes. Poor dentition. NECK: Normal range of motion, supple without lymphadenopathy, JVD, or masses. LUNGS: CTABL. No wheezes, and no crackles. No accessory muscle use. HEART: Regular rate and rhythm, normal S1 and S2 without murmur, rub or gallop. ABDOMEN: Soft, nontender, not distended, normoactive bowel sounds, no guarding, no rebound, no masses. No hepatomegaly or splenomegaly. MUSCULOSKELETAL: Normal range of motion at all joints. No bony deformities or tenderness. No CVA tenderness. UPPER EXTREMITIES: 2+ pulses, warm, well-perfused. No cyanosis. No clubbing. No peripheral edema. LOWER EXTREMITIES: still with L leg with bandage applied around lower calf. No drainage, bleeding or erythema noted. 2+ pulses, warm, well-perfused BL. 2+ DP, PT pulses BL. 1+ L pedal edema, worse today. NEUROLOGICAL: Cranial nerves II-XII intact. Normal speech. Gait not evaluated. 5/5 strength in all muscle groups. Cannot dorsiflex L foot due to pain. Preserved sensation to light touch diffusely. PSYCHIATRIC: Cooperative. Good eye contact. Appropriate mood and affect. SKIN: Warm, dry, normal turgor, no rashes or lesions noted, normal capillary refill. LABS Laboratory Results - last 24 hr CBC, BMP 08/07/17 06:45 08/07/17 06:45 08/05/17 08/05/17 08/06/17 08:10 08:10 15:00 WBC 6.0 RBC 3.11 L Hgb 8.6 L Hct 26.9 L MCV 86.6 MCH 27.8 MCHC 32.1 RDW 17.0 H Plt Count 285 MPV 8.0 Haptoglobin 285 H PT with INR INR PTT (Actin FS) Sodium Potassium Chloride Carbon Dioxide Anion Gap BUN Creatinine POC Glucometer Random Glucose Calcium Transferrin 278 08/06/17 08/06/17 08/07/17 16:29 22:00 06:22 WBC RBC Hgb Hct MCV MCH MCHC RDW Plt Count MPV Haptoglobin PT with INR INR PTT (Actin FS) Sodium Potassium Chloride Carbon Dioxide Anion Gap BUN Creatinine POC Glucometer 187 194 127 Random Glucose Calcium Transferrin 08/07/17 08/07/17 08/07/17 06:45 06:45 06:45 WBC 5.6 RBC 3.53 L Hgb 9.6 L D Hct 30.5 L MCV 86.5 MCH 27.3 MCHC 31.5 L RDW 16.9 H Plt Count 316 MPV 7.6 Haptoglobin PT with INR 11.70 INR 1.04 PTT (Actin FS) 27.4 D Sodium Potassium Chloride Carbon Dioxide Anion Gap BUN Creatinine POC Glucometer Random Glucose Calcium Transferrin 08/07/17 08/07/17 06:45 12:11 WBC RBC Hgb Hct MCV MCH MCHC RDW Plt Count MPV Haptoglobin PT with INR INR PTT (Actin FS) Sodium 143 Potassium 4.7 Chloride 107 Carbon Dioxide 27 Anion Gap 9 BUN 7 Creatinine 1.1 H POC Glucometer 127 Random Glucose 113 H Calcium 8.5 Transferrin Microbiology 08/05/17 10:00 Leg - Left Lower Gram Stain - Final 08/05/17 10:00 Leg - Left Lower Wound Culture - Final Corynebacterium Striatum 08/05/17 10:00 Leg - Left Lower Gram Stain - Final 08/05/17 10:00 Leg - Left Lower Wound Culture - Final Corynebacterium Striatum 08/04/17 17:40 Blood - Peripheral Venous Blood Culture - Preliminary NO GROWTH OBTAINED AFTER 48 HOURS, INCUBATION TO CONTINUE FOR 3 DAYS. 08/04/17 17:40 Blood - Peripheral Venous Blood Culture - Preliminary NO GROWTH OBTAINED AFTER 48 HOURS, INCUBATION TO CONTINUE FOR 3 DAYS. 08/04/17 16:20 Urine - Urine Clean Catch Urine Culture - Final NO GROWTH OBTAINED CXR 2/3 - Poor inspiratory effort. No acute gross pathology noted. EKG 2/3 - Sinus tachy, Rate 104, QTC 486, Poor R wave progression Consults: Vascular - Seen by Dr. Guzmán Cardiology - Seen by Dr. Fritz ID - Seen by Dr. Cheung [facility] Course Prehospital course: 57 yo woman w/ pmh of HIV (CV4 809, VL 80 on 07/04; on HAART), DM2, HTN, CAD (s/p cardiac stent 04/15), BL SFA stents (04/17, 05/18), who presents from home due to swelling, purulent drainage and burning around fasciotomy site in L lower leg. Pt recently admitted on 07/09 for L popliteal artery stent occlusion, c/b compartment syndrome requiring fasciotomy of L lower calf. Discharged to [facility] with wound care M-F with Dr. Guzmán. Pt had been treated with wound vac at fasciotomy site at [facility], in addition to hyperbaric tx at wound care clinic. However, left AMA from [facility] yesterday, as she felt she was not being treated appropriately. Pt had to abruptly d/c wound vac and oxycodone for pain medication after leaving [facility]. Pt states she was soaking her L foot in tub and noted "bubble" in inferior margin of medial laparotomy incision, with dark yellow drainage. In addition, she noted increased burning sensation around margin of both medial and lateral incision, with trace erythema and increased swelling. Pt states she was seen by Dr. Guzmán on 08/01 for wound care management and noted her bandages were soaked in blood. Pt denies any fevers/chills, cough , SOB, Ab pain, N/V, dysuria, diarrhea, other rashes, focal neurologic symptoms. She does endorse mild pedal edema in L ankle, however denies any tingling, numbness, decrease strength or sensation in L foot or leg. Pt states she is on a "blood thinner", but has not been taking it for two days. Pt denies any recent bleeding, including hemoptysis, hematemesis, hematuria, melena, hematochezia, bruising. Course since admission: On admission, labs notable for WBC 13.9, Hgb 5.9. Pt tachy to 118, BP 91/68. Pt L leg with mild erythema on wound edge BL with no purulence noted. Pt ordered for 2units pRBCs and all AC held due to risk of active bleed. Pt states L leg dressing on of prior week had significant saturation from bleeding, likely source of anemia. FOBT negative. Pt given one dose of vanc/zosyn in ED for presumed sepsis secondary to fasciitis, later transitioned to clindamycin 600mg q8h. Wound, blood and urine cultures sent. UA negative. ID and vascular consulted. Repeat CBC 08/05 with WBC 7.6 and Hgb 8.8 s/p 2 units prbcs overnight. Pt seen by ID following day, ordered for Vanc/zosyn for one more day, then d/c abx on 08/06, as low evidence of fasciitis, no fever and no WBC. Pt started on heparin gtt due to high risk of re-thrombosis on 08/05. Pt seen by Vascular team on 08/06; dressing changed, heparin gtt d/c'ed and pt started on lovenox 70mg BID. No concern for fasciitis by vascular team and cleared for discharge with f/ u in wound care clinic. Cardiology consulted for AC, recommended ASA and lovenox /coumadin bridge for intermodal customer service AC. Vascular informed, agreed. Pt discharged on on lovenox/coumadin bridge with outpt follow-up scheduled with Dr. Guzmán in wound care clinic later in the week to determine if wound vac required as outpt. Pt informed to obtain outpt INR test and send results to PCP for outpt INR monitoring. Admitted: 08/04/17 Discharged: 08/07/17 Patient medically stable and cleared for discharge with follow-up in wound care clinic with Dr. Guzmán in 2-3 days for assessment for wound vac and f/u with PCP in one week to review INR on coumadin, with further modifications of AC. Minutes to complete discharge: 35 Discharge Summary Reason For Visit: HISTORY OF FASCIOTOMY,ANEMIA,HUMAN IMMUNIODEFIENCY Condition: Good - Instructions Diet, Activity, Other Instructions: During your stay you were treated for suspected infection/bleeding from your fasciotomy site in your left leg. After testing, we determined that your surgical site was not infected and oral antibiotics are not required. Medications: The following medications were added to your regimen. Please take them as described below: Lovenox 70mg, one injection, twice a day, until your primary care provider instructs you to stop. You are being given a one month supply. Coumadin 2mg, one pill by mouth once a day Please stop taking the following medications: Plavix 75mg Please continue taking all other home medication as previously prescribed. Follow-ups: Please schedule an appointment to see your primary care physician in one week for further management of your outpatient medication regimen. Also, please call your primary care physician on Sunday to discuss the results of your INR lab test. Please schedule a follow-up appointment with Dr. Guzmán in wound care clinic, as soon as possible. He will need evaluate if you require a wound vac at home for your leg. Please call to schedule an appointment. His contact information has been provided. Please have the following labs drawn on Sunday and have the results sent to your primary care provider. PT/INR You will require INR checks every 3-4 days until you are in the therapeutic range (2-3). At this point, your primary care provider will determine how frequently to check your INR. PLEASE GO THIS SUNDAY TO CHECK YOUR BLOOD WORK. Activity: Certain foods have high levels of Vitamin K, which will negate the effectiveness of your coumadin medication. Please abide by the approved diet provided in your discharge packet regarding foods to avoid. You are approved for weight bearing on your Left leg as tolerated. Please return to the hospital if you experience any of the following symptoms: - Numbness/inability to move your left leg - Your leg becomes cold or you cannot feel a pulse - New fevers, cough, trouble breathing - Any new or concerning symptoms Referrals: Jossie Jimenes NP [Nurse Practitioner] - 1 Week ON STAFF,NOT [Primary Care Provider] - Gabriel Guzmán MD [Staff Physician] - (See Dr. Guzmán in 2-3 days in clinic for further evaluation for a wound vac) Disposition: HOME - Home Medications Comprehensive Discharge Medication List: Ambulatory Orders Gabapentin [Neurontin] 600 mg PO BID 07/06/16 Magnesium 200 mg PO DAILY PRN 07/06/16 Emtricitabine/Tenofov Alafenam [Descovy 200-25 mg Tablet (Nf)] 1 each PO HS #30 tablet 04/04/17 Lisinopril 5 mg PO HS #30 tablet 04/04/17 Loratadine [Claritin -] 10 mg PO DAILY PRN #30 tablet 04/04/17 Montelukast Na [Singulair -] 10 mg PO HS 04/26/17 Aspirin [Aspirin EC] 81 mg PO DAILY 05/02/17 Omeprazole 20 mg PO BID #60 tablet. 06/01/17 Budesonide/Formeterol Fumarate [SYMBICORT 160/4.5mcg -] 1 puff IH BID 07/04/17 Escitalopram Oxalate [Lexapro -] 20 mg PO HS #30 tablet 07/04/17 Mirtazapine [Remeron -] 30 mg PO HS #30 tablet 07/04/17 Olopatadine HCl [Pataday] 1 drop OP DAILY #2.5 ml 07/04/17 Oxybutynin Chloride [Oxybutynin Chloride ER] 10 mg PO DAILY 07/04/17 Zolpidem Tartrate [Ambien] 5 mg PO HS #30 tab MDD 1 07/04/17 clonazePAM [Klonopin -] 0.5 mg PO TID #90 tablet MDD 1.5mg 07/04/17 Pravastatin Sodium [Pravachol -] 40 mg PO HS 07/09/17 oxyCODONE HCL [Roxicodone -] 10 mg PO Q4H PRN #25 tablet MDD 30 07/20/17 Enoxaparin [Lovenox -] 70 mg SQ BID #28 disp.syrin 08/07/17 Warfarin Na [Coumadin -] 2 mg PO DAILY@1800 #30 tablet 08/07/17 This patient is new to me today: No Emergency Visit: Yes ED Registration Date: 08/04/17 Care time: The patient presented to the Emergency Department on the above date and was hospitalized for further evaluation of their emergent condition. Critical Care patient: No - Discharge Referral Referred to [facility] Med P.C.: No
--- NOTE | 2017-08-07 15:48 | PN ---
Teaching Attending Note Name of Resident: Andrea Davila ATTENDING PHYSICIAN STATEMENT I saw and evaluated the patient. I reviewed the resident's note and discussed the case with the resident. I agree with the resident's findings and plan as documented. SUBJECTIVE:asymptomatic. wants to go home. denies Cp, SOB, fever, chills, leg pain, difficulty ambulating OBJECTIVE: Last Vital Signs Temp Pulse Resp BP Pulse Ox 97.3 F L 88 18 126/81 96 08/07/17 10:00 08/07/17 10:00 08/07/17 10:00 08/07/17 10:08/06/17 21:00 General NAD ASSESSMENT AND PLAN: 57 yo F w/ pmh of HIV (CV4 809, VL 80 on 07/04; on HAART), DM2, HTN, CAD (s/p cardiac stent 04/15), BL SFA stents (04/17, 05/18), recently admitted to [facility] with LLE stent occlusion with ischemia, suspected from Plavix non compliance, s/ p stents placement complicated by compartment syndrome s/p fasciotomy, sent to rehab, signed herself out from rehab yesterday, was without wound vac and pain control came to hospital with ongoing leg purulent discharge, pain and found with Hb 5.9. 1. Suspected Sepsis secondary to wound infection LLE- LLE no longer appears infected and off all abx. will need close monitoring in wound care clinic. possible wound vac placement by vascular. 2. Severe PAD with recent stent occlusion/LLE ischemia s/p stents placement- started on coumadin-lovenox bridge day 2 today. counselled on need for lovenox injections and frequent INR checks. all questions answered 3. Acute anemia- due to LLE. now stopped. s/p 2 units PRBC this admission. Hgb stable. no further indication for txn 4. LLE compartment syndrome s/p fasciotomy 5. IDDM 6. HTN 7. HIV on HAART 8. CAD s/p PCI 04/2015 9. d/c home with follow up in 2-3 days for INR check and wound care clinic for wound vac placement. all questions answered. verbalized understanding and agreement.
== END 2017-08-07 14:08 | disposition home or self-care (01) | DRG 721 ==
LOC: JER 14:45 → JERBED 23:39 → J5S 08-05 17:02
PROVIDERS: ADMIT Internal Medicine; ATTEND Internal Medicine
PROC: 30233H1 Transfusion of Nonautologous Whole Blood into Peripheral Vein, Percutaneous Approach (ICD-10-PCS; principal; 2017-08-05)
DX: T81.4XXA Infection following a procedure, initial encounter (principal); A41.9 Sepsis, unspecified organism; Y83.8 Other surgical procedures as the cause of abnormal reaction of the patient, or of later complication, without mention of misadventure at the time of the procedure; L08.89 Other specified local infections of the skin and subcutaneous tissue; B96.89 Other specified bacterial agents as the cause of diseases classified elsewhere; E11.9 Type 2 diabetes mellitus without complications; I10 Essential (primary) hypertension; I25.10 Atherosclerotic heart disease of native coronary artery without angina pectoris; Z21 Asymptomatic human immunodeficiency virus [HIV] infection status; Z95.5 Presence of coronary angioplasty implant and graft; E78.5 Hyperlipidemia, unspecified; Z96.652 Presence of left artificial knee joint; I73.9 Peripheral vascular disease, unspecified; Z79.4 Long term (current) use of insulin; D64.9 Anemia, unspecified; D62 Acute posthemorrhagic anemia; E86.1 Hypovolemia
CPT/HCPCS: 36415; 36430; 71045-TC; 80048; 80053; 81003; 82272; 82550; 82553; 82728; 82803; 82962; 83010; 83540; 83550; 83605; 83615; 83735; 84100; 84466; 84484; 85025; 85027; 85610; 85730; 86850; 86900; 86901; 86922; 87040; 87070; 87077; 87086; 87205; 93005; 93010; 97116-GP; 97161-GP; 99285-25; J1644; P9038; P9058

== ENCOUNTER 2017-09-25 14:57 | Inpatient (IN) | payer OTHER ==
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
[2017-09-25 15:39] LABS: BASO % 0.6 % (0-2.0); EOS % 1.2 % (0-4.5); HEMATOCRIT 36.6 % (32.4-45.2); HEMOGLOBIN 11.9 GM/dL (10.7-15.3); MCHC 32.5 g/dl (32.0-36.0); MEAN CELL VOLUME 79.8 fl (80-96); MEAN PLT VOLUME 9.2 fl (7.5-11.1); MONO % 4.9 % (3.8-10.2); NEUT % 63.3 % (42.8-82.8); PLATELET COUNT 269 K/MM3 (134-434); RBC 4.58 M/mm3 (3.60-5.2); RDW 16.5 % (11.6-15.6); VENOUS PC02 49.9 mmHg (38-52); VENOUS PH 7.34 (7.32-7.42); VENOUS PO2 28.9 mmHg (28-48); WHITE BLOOD COUNT 7.5 K/mm3 (4.0-10.0)
[2017-09-25 16:06] LABS: INR 1.47 (0.82-1.09); PROTHROMBIN TIME (PATIENT) 16.6 SEC (9.98-11.88)
[2017-09-25 16:10] LABS: ALBUMIN 3.4 g/dl (3.4-5.0); ALK PHOS 153 U/L (45-117); ANION GAP 10 (8-16); BILIRUBIN,TOTAL 0.2 mg/dL (0.2-1.0); BLOOD UREA NITROGEN 14 mg/dL (7-18); CALCIUM 9.1 mg/dL (8.5-10.1); CHLORIDE 103 mmol/L (98-107); CO2 27 mmol/L (21-32); CREATININE 0.9 mg/dL (0.55-1.02); GLUCOSE,RANDOM 170 mg/dL (74-106); POTASSIUM 4.1 mmol/L (3.5-5.1); SGOT/AST 20 U/L (15-37); SGPT/ALT 21 U/L (12-78); SODIUM 140 mmol/L (136-145); TOT PROT 7.8 g/dl (6.4-8.2)
--- NOTE | 2017-09-25 19:33 | PDOC ---
History of Present Illness - General History Source: Patient Exam Limitations: No Limitations - History of Present Illness Initial Comments: 09/25/17 19:34 The patient is a 57 year old female, with a significant past medical history of recent fasciotomy s/p for left popliteal artery occlusion c/b compartment syndrome (admitted to [facility] in July), HIV, diabetes mellitus, hypertension, coronary artery disease (s/p stent in 2014), BL SFA stents (04/17, 05/18), who presents to the emergency department complaining of, left great toe infection for approx 2-3 weeks. The patient states she was sent to the ED for the left great toe infection by Dr. Guzmán from wound care. The patient reports receiving hyperbaric oxygen treatments for left great toe wound with minimal relief. The patient states she has had left foot swelling in the past couple of days. She denies recent fevers, chills, headache or dizziness. She denies recent nausea, vomit, diarrhea or constipation. She denies recent dysuria, frequency, urgency or hematuria. She denies recent chest pain or shortness of breath. Allergies: fish containing products Social history: Current smoker. Wound Care: Dr. Guzmán Infectious Disease: Dr. Cheung <Eleazar Castañeda - Last Filed: 09/25/17 19:34> <Tiffanie Sarmiento - Last Filed: 09/26/17 01:59> - General Chief Complaint: Wound Stated Complaint: WOUND CARE Time Seen by Provider: 09/25/17 15:01 Past History <Eleazar Castañeda - Last Filed: 09/25/17 19:34> - Past Medical History Anemia: No Asthma: Yes Cancer: No Cardiac Disorders: Yes (x2 stents) CVA: No COPD: No CHF: No Dementia: No Diabetes: Yes GI Disorders: Yes (h. pylori; GERD) Disorders: No (kidney stones) HTN: Yes Hypercholesterolemia: Yes Kidney Stones: Yes Liver Disease: No Psychiatric Problems: Yes (ANXIETY.) Seizures: No Thyroid Disease: No Other medical history: bilateral iliaxc stent in 2006 - Surgical History Abdominal Surgery: No Appendectomy: No Cardiac Surgery: Yes (PTCA 04/04/15 WITH ONE STENT TO LAD-COMPLETED PLAVIX THERAPY 04/01/16 2 PAVAN) Cholecystectomy: Yes Lung Surgery: No Neurologic Surgery: No Orthopedic Surgery: Yes (04/01/16 left knee replacement) - Immunization History Immunization Up to Date: Yes - Suicide/Smoking/Psychosocial Hx Smoking History: Current every day smoker Have you smoked in the past 12 months: Yes Number of Cigarettes Smoked Daily: 10 If you are a former smoker, when did you quit?: 07/2017 Cigars Per Day: 0 Information on smoking cessation initiated: No 'Breaking Loose' booklet given: 05/10/17 Hx Alcohol Use: No Drug/Substance Use Hx: No Substance Use Type: None Hx Substance Use Treatment: No <Tiffanie Sarmiento - Last Filed: 09/26/17 01:59> - Past Medical History Allergies/Adverse Reactions: Allergies Allergy/AdvReac Type Severity Reaction Status Date / Time Fish Containing Products Allergy Verified 09/25/17 15:01 Home Medications: Ambulatory Orders Gabapentin [Neurontin] 600 mg PO BID 07/06/16 Magnesium 200 mg PO DAILY PRN 07/06/16 Montelukast Na [Singulair -] 10 mg PO HS 04/26/17 Olopatadine HCl [Pataday] 1 drop OP DAILY #2.5 ml 07/04/17 Pravastatin Sodium [Pravachol -] 40 mg PO HS 07/09/17 oxyCODONE HCL [Roxicodone -] 10 mg PO Q4H PRN #25 tablet MDD 30 07/20/17 Budesonide/Formeterol Fumarate [SYMBICORT 160/4.5mcg -] 1 puff IH BID #1 inhaler 08/08/17 Dolutegravir Sodium [Tivicay] 50 mg PO DAILY #30 tablet 08/08/17 Emtricitabine/Tenofov Alafenam [Descovy 200-25 mg Tablet (Nf)] 1 each PO HS #30 tablet 08/08/17 Lisinopril 5 mg PO HS #30 tablet 08/08/17 Loratadine [Claritin -] 10 mg PO DAILY PRN #30 tablet 08/08/17 Becaplermin [Regranex] 15 gm TP DAILY #1 gel..gram. 08/10/17 Collagenase Clostridium Hist. [Santyl] 1 applic TP DAILY #90 oint...g. 08/10/17 Oxycodone HCl/Acetaminophen [Oxycodone-Acetaminophen 5-325] 1 each PO QID #90 tablet MDD 4 08/10/17 Albuterol Sulfate Inhaler - [Ventolin HFA Inhaler -] 1 - 2 inh PO Q6H PRN #1 inhaler 08/15/17 Sodium Chloride 0.9% Irrig [Normal Saline 0.9% Irrig. Soln -] 500 ml IR ASDIR # 7 btl 08/15/17 Escitalopram Oxalate [Lexapro -] 20 mg PO HS #30 tablet 08/16/17 Zolpidem Tartrate [Ambien] 5 mg PO HS #30 tab MDD 1 08/16/17 Ferrous Sulfate [Feosol] 325 mg PO DAILY #30 tablet 08/24/17 Warfarin Sodium [Coumadin] 1 tab PO DAILY 09/25/17 Review of Systems - Review of Systems Comments:: 09/25/17 19:35 CONSTITUTIONAL: Absent: fever, no chills, no fatigue EYES: Absent: visual changes ENT: Absent: ear pain, no sore throat CARDIOVASCULAR: Absent: chest pain, no palpitations RESPIRATORY: Absent: cough, no SOB GI: Absent: abdominal pain, no nausea, no vomiting, no constipation, no diarrhea GENITOURINARY: Absent: dysuria, no frequency, no hematuria MUSKULOSKELETAL: Absent: back pain, no arthralgia, no myalgia SKIN: Present: +Left great toe infection. +Left foot swelling. Absent: rash NEURO: Absent: headache <Eleazar Castañeda - Last Filed: 09/25/17 19:34> *Physical Exam - Vital Signs Last Vital Signs Temp Pulse Resp BP Pulse Ox 97.6 F 88 19 128/71 98 09/25/17 15:01 09/25/17 15:01 09/25/17 15:01 09/25/17 15:01 09/25/17 15:01 <Eleazar Castañeda - Last Filed: 09/25/17 19:34> - Vital Signs Last Vital Signs Temp Pulse Resp BP Pulse Ox 97.6 F 88 19 128/71 98 09/25/17 15:01 09/25/17 15:01 09/25/17 15:01 09/25/17 15:01 09/25/17 15:01 - Physical Exam General Appearance: Yes: Nourished HEENT: positive: Normal Voice Neck: positive: Supple Respiratory/Chest: positive: Lungs Clear Cardiovascular: positive: Regular Rhythm, Regular Rate Gastrointestinal/Abdominal: positive: Soft Musculoskeletal: positive: Normal Inspection Extremity: positive: Other (swollen tender left big toe) Neurologic: positive: Fully Oriented, Alert <TorstenTiffanie Brii - Last Filed: 09/26/17 01:59> ED Treatment Course - LABORATORY CBC & Chemistry Diagram: 09/25/17 15:33 09/25/17 15:33 - ADDITIONAL ORDERS Additional order review: Laboratory Results 09/25/17 09/25/17 09/25/17 15:33 15:33 15:33 PT with INR INR VBG pH 7.34 POC VBG pCO2 49.9 POC VBG pO2 28.9 Mixed VBG HCO3 26.3 H Sodium 140 Potassium 4.1 Chloride 103 Carbon Dioxide 27 Anion Gap 10 BUN 14 Creatinine 0.9 Creat Clearance w eGFR > 60 Random Glucose 170 H Lactic Acid 1.4 Calcium 9.1 Total Bilirubin 0.2 D AST 20 ALT 21 Alkaline Phosphatase 153 H Troponin I Total Protein 7.8 Albumin 3.4 09/25/17 09/25/17 15:33 15:30 PT with INR 16.60 H INR 1.47 H D VBG pH POC VBG pCO2 POC VBG pO2 Mixed VBG HCO3 Sodium Potassium Chloride Carbon Dioxide Anion Gap BUN Creatinine Creat Clearance w eGFR Random Glucose Lactic Acid Calcium Total Bilirubin AST ALT Alkaline Phosphatase Troponin I < 0.02 Total Protein Albumin 09/25/17 15:33 RBC 4.58 MCV 79.8 L MCHC 32.5 RDW 16.5 H MPV 9.2 Neutrophils % 63.3 Lymphocytes % 30.0 Monocytes % 4.9 Eosinophils % 1.2 Basophils % 0.6 <Eleazar Castañeda - Last Filed: 09/25/17 19:34> - LABORATORY CBC & Chemistry Diagram: 09/25/17 15:33 09/25/17 15:33 - ADDITIONAL ORDERS Additional order review: Laboratory Results 09/25/17 09/25/17 09/25/17 15:33 15:33 15:33 PT with INR INR VBG pH 7.34 POC VBG pCO2 49.9 POC VBG pO2 28.9 Mixed VBG HCO3 26.3 H Sodium 140 Potassium 4.1 Chloride 103 Carbon Dioxide 27 Anion Gap 10 BUN 14 Creatinine 0.9 Creat Clearance w eGFR > 60 Random Glucose 170 H Lactic Acid 1.4 Calcium 9.1 Total Bilirubin 0.2 D AST 20 ALT 21 Alkaline Phosphatase 153 H Troponin I Total Protein 7.8 Albumin 3.4 09/25/17 09/25/17 15:33 15:30 PT with INR 16.60 H INR 1.47 H D VBG pH POC VBG pCO2 POC VBG pO2 Mixed VBG HCO3 Sodium Potassium Chloride Carbon Dioxide Anion Gap BUN Creatinine Creat Clearance w eGFR Random Glucose Lactic Acid Calcium Total Bilirubin AST ALT Alkaline Phosphatase Troponin I < 0.02 Total Protein Albumin 09/25/17 15:33 RBC 4.58 MCV 79.8 L MCHC 32.5 RDW 16.5 H MPV 9.2 Neutrophils % 63.3 Lymphocytes % 30.0 Monocytes % 4.9 Eosinophils % 1.2 Basophils % 0.6 <Tiffanie Sarmiento - Last Filed: 09/26/17 01:59> *DC/Admit/Observation/Transfer - Attestations Scribe Attestion: 09/25/17 19:38 Documentation prepared by Eleazar Castañeda, acting as certified ophthalmic medical technician for Tiffanie Sarmiento MD <Eleazar Castañeda - Last Filed: 09/25/17 19:34> - Discharge Dispostion Admit: Yes <Tiffanie Sarmiento - Last Filed: 09/26/17 01:59> Diagnosis at time of Disposition: Human immunodeficiency virus (HIV) disease Wound, open, foot Qualifiers: Encounter type: initial encounter Laterality: left Qualified Code(s): S91.302A - Unspecified open wound, left foot, initial encounter Uncontrolled diabetes mellitus Qualifiers: Diabetes mellitus type: type 1 Diabetes mellitus complication status: with skin complications Diabetes mellitus complication detail: with other skin complication Qualified Code(s): E10.628 - 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
[2017-09-25] MEDS ORDERED: VANCOMYCIN 1,000 MG in DEXTROSE 5%-WATER - 250 ML IVPB STA (19:50)
[2017-09-25] MEDS ORDERED: PIPERACILLIN/TAZOB 3.375 GM 50 ML IVPB ONE (19:51)
--- NOTE | 2017-09-25 19:52 | PN ---
Teaching Attending Note Name of Resident: Rose Hoffman ATTENDING PHYSICIAN STATEMENT I saw and evaluated the patient. I reviewed the resident's note and discussed the case with the resident. I agree with the resident's findings and plan as documented. SUBJECTIVE: 57 yo M with pmhx. of HIV (CD4 809: VL 80) on HAART, DM II, HTN, CAD (s/p stent 04/15), BL SFA stents (04/17, 05/18), recent fasciotomy for polpiteal art. occlusion complicated by compartment syndrome with fasciotomy, who presents with Left Great toe infection. States she had seen Dr. Guzmán at wound care and sent to ED for infection. She had been recieving HBOT for Left Toe. Notes minimal relief. States she had a hot pack on it for pain relief and ended up burning my toe. OBJECTIVE: Physical: VS: Vital Signs Period Temp Pulse Resp BP Sys/Cota Pulse Ox Last 24 Hr 97.6 F 81-88 16-19 103-128/65-71 96-98 GEN:NAD, Resting in bed, AA0X3 HEENT: NCAT, PERRL, Throat without erythema or exudates CARD: RRR S1, S2 RESP: CTAB ABD: BSx4, NTD to palpation EXT: L. toe with 2cm ulceration, Pulses intact, L. Calf with healing wound from fasciotomy, CBCD WBC 7.5 K/mm3 (4.0-10.0) 09/25/17 15:33 RBC 4.58 M/mm3 (3.60-5.2) 09/25/17 15:33 Hgb 11.9 GM/dL (10.7-15.3) D 09/25/17 15:33 Hct 36.6 % (32.4-45.2) 09/25/17 15:33 MCV 79.8 fl (80-96) L 09/25/17 15:33 MCHC 32.5 g/dl (32.0-36.0) 09/25/17 15:33 RDW 16.5 % (11.6-15.6) H 09/25/17 15:33 Plt Count 269 K/MM3 (134-434) D 09/25/17 15:33 MPV 9.2 fl (7.5-11.1) 09/25/17 15:33 CMP Sodium 140 mmol/L (136-145) 09/25/17 15:33 Potassium 4.1 mmol/L (3.5-5.1) 09/25/17 15:33 Chloride 103 mmol/L (98-107) 09/25/17 15:33 Carbon Dioxide 27 mmol/L (21-32) 09/25/17 15:33 Anion Gap 10 (8-16) 09/25/17 15:33 BUN 14 mg/dL (7-18) 09/25/17 15:33 Creatinine 0.9 mg/dL (0.55-1.02) 09/25/17 15:33 Creat Clearance w eGFR > 60 (>60) 09/25/17 15:33 Random Glucose 170 mg/dL (74-106) H 09/25/17 15:33 Calcium 9.1 mg/dL (8.5-10.1) 09/25/17 15:33 Total Bilirubin 0.2 mg/dL (0.2-1.0) D 09/25/17 15:33 AST 20 U/L (15-37) 09/25/17 15:33 ALT 21 U/L (12-78) 09/25/17 15:33 Alkaline Phosphatase 153 U/L (45-117) H 09/25/17 15:33 Total Protein 7.8 g/dl (6.4-8.2) 09/25/17 15:33 Albumin 3.4 g/dl (3.4-5.0) 09/25/17 15:33 CARDIAC ENZYMES Troponin I < 0.02 ng/ml (0.00-0.05) 09/25/17 15:30 Home Medications Medication Instructions Recorded Gabapentin [Neurontin] 600 mg PO BID 07/06/16 Magnesium 200 mg PO DAILY PRN 07/06/16 Montelukast Na [Singulair -] 10 mg PO HS 04/26/17 Olopatadine HCl [Pataday] 1 drop OP DAILY #2.5 ml 07/04/17 Pravastatin Sodium [Pravachol -] 40 mg PO HS 07/09/17 oxyCODONE HCL [Roxicodone -] 10 mg PO Q4H PRN #25 tablet MDD 30 07/20/17 Budesonide/Formeterol Fumarate 1 puff IH BID #1 inhaler 08/08/17 [SYMBICORT 160/4.5mcg -] Dolutegravir Sodium [Tivicay] 50 mg PO DAILY #30 tablet 08/08/17 Emtricitabine/Tenofov Alafenam 1 each PO HS #30 tablet 08/08/17 [Descovy 200-25 mg Tablet (Nf)] Lisinopril 5 mg PO HS #30 tablet 08/08/17 Loratadine [Claritin -] 10 mg PO DAILY PRN #30 tablet 08/08/17 Becaplermin [Regranex] 15 gm TP DAILY #1 gel..gram. 08/10/17 Collagenase Clostridium Hist. 1 applic TP DAILY #90 oint...g. 08/10/17 [Santyl] Oxycodone HCl/Acetaminophen 1 each PO QID #90 tablet MDD 4 08/10/17 [Oxycodone-Acetaminophen 5-325] Albuterol Sulfate Inhaler - 1 - 2 inh PO Q6H PRN #1 inhaler 08/15/17 [Ventolin HFA Inhaler -] Sodium Chloride 0.9% Irrig [Normal 500 ml IR ASDIR #7 btl 08/15/17 Saline 0.9% Irrig. Soln -] Escitalopram Oxalate [Lexapro -] 20 mg PO HS #30 tablet 08/16/17 Zolpidem Tartrate [Ambien] 5 mg PO HS #30 tab MDD 1 08/16/17 Ferrous Sulfate [Feosol] 325 mg PO DAILY #30 tablet 08/24/17 Warfarin Sodium [Coumadin] 1 tab PO DAILY 09/25/17 ASSESSMENT AND PLAN: 57 yo M with pmhx. of HIV (CD4 809: VL 80) on HAART, DM II, HTN, CAD (s/p stent 04/15), BL SFA stents (04/17, 05/18), recent fasciotomy for polpiteal art. occlusion, who presents from wound clinic for L. Toe infection. 1.) L. Toe Ulceration/Cellulitis - Check ESR/CRP - Cx - Vanco/Zosyn - ID consult - Podiatry consult 2.)HIV On HAART - C/W Home meds 3.) DM II - FS - RAISS 3.) HLD - C/W Statin 4.) Dvt Hx - ? Possible debridement - Hep. gtt Place in Med-Sx
[2017-09-25] MEDS ORDERED: PIPERACILLIN/TAZOB 3.375 GM 3.375 GM/50 ML BAG IVPB ONE (20:08)
[2017-09-25] MEDS ORDERED: SODIUM CHLORIDE 1,000 ML IV SCH (21:00)
[2017-09-25] MEDS ORDERED: ALBUTEROL SO4 18 GM HFA INHALER IH PRN (21:06)
[2017-09-25] MEDS ORDERED: ZOLPIDEM TARTRATE 5 MG TABLET PO PRN (21:12)
--- NOTE | 2017-09-25 21:14 | HP ---
CHIEF COMPLAINT: L great toe wound infection x 2 weeks PCP: HISTORY OF PRESENT ILLNESS: 57 y/o F with PMH HTN, DM, HLD, HIV (CD4 809, VL 80; follows with Dr. Cheung), CAD (s/p stent 2014), recent fasciotomy s/p L popliteal a. occlusion for compartment syndrome (July 2017), b/l SFA stents (04/17, 05/18), hx R DVT ( on Coumadin), iron deficiency anemia, COPD, who presents to the ED c/o L great toe wound infection over the past two weeks. As per patient, two weeks ago, her L ankle was tender, painful and edematous, so she tried to relieve her pain with a heating pad. Pt left the heating pad on her ankle for 30min-1 hour, and found that her L great toe had a burn and blister on its lateral aspect. The blister popped after she soaked her toe in warm water and epsom salt, and she saw Dr. Guzmán the next day who recommended she apply Santyl to the wound. Over the next few days, her LLE became increasingly edematous, so she saw a palliative nurse and was told to come to the ED for further evaluation, MRI to r/o OM , and abx. During this time, pt denies discharge, foul odor, or erythema to the wound. Denies STONE, fever, chills, SOB or chest pain, or changes in urinary or bowel function. ER course was notable for: (1) Vanc 1 g x 1, zosyn 3.375g x 1 (2) (3) Recent Travel: none PAST MEDICAL HISTORY: as above PAST SURGICAL HISTORY: CAD (s/p stent 2014), recent fasciotomy s/p L popliteal a. 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 4-5 cigs/day (in past 2 packs, decreased to 1 pack)- since age 17 Alcohol: socially; wine Drugs: denies Family History: mother- DM, father- cardiac issues, uncles- prostate CA, aunt- ovarian CA Allergies Fish Containing Products Allergy (Verified 09/25/17 15:01) Pt reports fish allergy - causes edema, erythema HOME MEDICATIONS: Home Medications Medication Instructions Recorded Gabapentin [Neurontin] 600 mg PO BID 07/06/16 Magnesium 200 mg PO DAILY PRN 07/06/16 Montelukast Na [Singulair -] 10 mg PO HS 04/26/17 Olopatadine HCl [Pataday] 1 drop OP DAILY #2.5 ml 07/04/17 Pravastatin Sodium [Pravachol -] 40 mg PO HS 07/09/17 oxyCODONE HCL [Roxicodone -] 10 mg PO Q4H PRN #25 tablet MDD 30 07/20/17 Budesonide/Formeterol Fumarate 1 puff IH BID #1 inhaler 08/08/17 [SYMBICORT 160/4.5mcg -] Dolutegravir Sodium [Tivicay] 50 mg PO DAILY #30 tablet 08/08/17 Emtricitabine/Tenofov Alafenam 1 each PO HS #30 tablet 08/08/17 [Descovy 200-25 mg Tablet (Nf)] Lisinopril 5 mg PO HS #30 tablet 08/08/17 Loratadine [Claritin -] 10 mg PO DAILY PRN #30 tablet 08/08/17 Becaplermin [Regranex] 15 gm TP DAILY #1 gel..gram. 08/10/17 Collagenase Clostridium Hist. 1 applic TP DAILY #90 oint...g. 08/10/17 [Santyl] Oxycodone HCl/Acetaminophen 1 each PO QID #90 tablet MDD 4 08/10/17 [Oxycodone-Acetaminophen 5-325] Albuterol Sulfate Inhaler - 1 - 2 inh PO Q6H PRN #1 inhaler 08/15/17 [Ventolin HFA Inhaler -] Sodium Chloride 0.9% Irrig [Normal 500 ml IR ASDIR #7 btl 08/15/17 Saline 0.9% Irrig. Soln -] Escitalopram Oxalate [Lexapro -] 20 mg PO HS #30 tablet 08/16/17 Zolpidem Tartrate [Ambien] 5 mg PO HS #30 tab MDD 1 08/16/17 Ferrous Sulfate [Feosol] 325 mg PO DAILY #30 tablet 08/24/17 Warfarin Sodium [Coumadin] 1 tab PO DAILY 09/25/17 REVIEW OF SYSTEMS CONSTITUTIONAL: Absent: fever, chills, diaphoresis, generalized weakness, malaise, loss of appetite, weight change HEENT: Absent: rhinorrhea, nasal congestion, throat pain, throat swelling, difficulty swallowing, mouth swelling, ear pain, eye pain, visual changes CARDIOVASCULAR: Absent: chest pain, syncope, palpitations, irregular heart rate, lightheadedness , peripheral edema RESPIRATORY: Absent: cough, shortness of breath, dyspnea with exertion, orthopnea, wheezing, stridor, hemoptysis GASTROINTESTINAL: Absent: abdominal pain, abdominal distension, nausea, vomiting, diarrhea, constipation, melena, hematochezia GENITOURINARY: Absent: dysuria, frequency, urgency, hesitancy, hematuria, flank pain, genital pain MUSCULOSKELETAL: +L great toe pain, swelling Absent: myalgia, arthralgia, joint swelling, back pain, neck pain SKIN: +L great toe blister Absent: rash, itching, pallor HEMATOLOGIC/IMMUNOLOGIC: Absent: easy bleeding, easy bruising, lymphadenopathy, frequent infections ENDOCRINE: Absent: unexplained weight gain, unexplained weight loss, heat intolerance, cold intolerance NEUROLOGIC: Absent: headache, focal weakness or paresthesias, dizziness, unsteady gait, seizure, mental status changes, bladder or bowel incontinence PSYCHIATRIC: Absent: anxiety, depression, suicidal or homicidal ideation, hallucinations. PHYSICAL EXAMINATION Vital Signs 09/25/17 09/25/17 15:01 21:05 Temperature 97.6 F Pulse Rate 88 Pulse Rate [ 81 Apical] Respiratory 19 16 Rate Blood Pressure 128/71 Blood Pressure 103/65 [Left Arm] O2 Sat by Pulse 98 96 Oximetry (%) GENERAL: Pleasant woman. Sitting comfortably. Awake, alert, and fully oriented, in no acute distress. HEAD: Normal with no signs of trauma. EYES: Pupils equal, round and reactive to light, extraocular movements intact, sclera anicteric, conjunctiva clear. EARS, NOSE, THROAT: Ears normal, nares patent, oropharynx clear without exudates. Moist mucous membranes. NECK: Normal range of motion, supple LUNGS: Breath sounds equal, clear to auscultation bilaterally. No wheezes, and no crackles. No accessory muscle use. HEART: Regular rate and rhythm, normal S1 and S2 without murmur, rub or gallop. ABDOMEN: Soft, nontender, not distended, normoactive bowel sounds, no guarding, no rebound, no masses. MUSCULOSKELETAL: Normal range of motion at all joints. No bony deformities or tenderness. No CVA tenderness. UPPER EXTREMITIES: 2+ radial pulses, warm, well-perfused. No cyanosis. No clubbing. No peripheral edema. LOWER EXTREMITIES: 2+ dorsalis pedis pulses, warm, well-perfused. +L kim- s/p fasciotomy, incisions healing well. +L great toe- with yellow clean blister- lateral aspect. Without drainage NEUROLOGICAL: Cranial nerves II-XII intact. Normal speech. Normal gait. PSYCHIATRIC: Cooperative. Laboratory Results - last 24 hr 09/25/17 09/25/17 09/25/17 15:30 15:33 15:33 WBC 7.5 RBC 4.58 Hgb 11.9 D Hct 36.6 MCV 79.8 L MCH 26.0 MCHC 32.5 RDW 16.5 H Plt Count 269 D MPV 9.2 Neutrophils % 63.3 Lymphocytes % 30.0 Monocytes % 4.9 Eosinophils % 1.2 Basophils % 0.6 PT with INR 16.60 H INR 1.47 H D VBG pH ALT Alkaline Phosphatase Troponin I < 0.02 Total Protein Albumin 09/25/17 09/25/17 09/25/17 15:33 15:33 15:33 Neutrophils % Basophils % PT with INR INR VBG pH 7.34 POC VBG pCO2 49.9 POC VBG pO2 28.9 Mixed VBG HCO3 26.3 H Sodium 140 Potassium 4.1 Chloride 103 Carbon Dioxide 27 Anion Gap 10 BUN 14 Creatinine 0.9 Creat Clearance w eGFR > 60 Random Glucose 170 H Lactic Acid 1.4 Calcium 9.1 Total Bilirubin 0.2 D AST 20 ALT 21 Alkaline Phosphatase 153 H Troponin I Total Protein 7.8 Albumin 3.4 MICRO -Blood cx - pending EKG NSR Qtc 473ms ASSESSMENT/PLAN: 57 y/o F with PMH HTN, DM, HLD, HIV (CD4 809, VL 80; follows with Dr. Cheung), CAD (s/p stent 2014), recent fasciotomy s/p L popliteal a. occlusion for compartment syndrome (July 2017), b/l SFA stents (04/17, 05/18), hx R DVT ( on Coumadin), iron deficiency anemia, COPD, who presents to the ED c/o L great toe wound infection over the past two weeks. Pt admitted to med-surg for L great toe wound infection, r/o OM. #L great toe wound infection, r/o OM -Pt without sepsis - afebrile, without white count -However, pt with significant comorbidities- HIV, DM -Received vanco 1g IVPB x 1, zosyn 3.375g IVPB x 1 in ED -Will continue on vanco 1g IVPB qd, zosyn 3.375g IVPB q6h -Recommend L-foot x-ray, MRI to r/o OM -Continue wound care, santyl application -ID consult- Dr. Cheung -Podiatry consult- Dr. Osorio -[facility] consult- Dr. Guzmán; sent in by -F/u blood cx, urine cx -Pt started on hep gtt as may need debridement #HIV (CD4 809, VL80) -To be seen by Dr. Cheung -Continue Dolutegravir 50mg qd -Descovy 200-25mg tab - 1each PO qHS -Pt last took meds last night #HTN- currently controlled -Continue lisinopril 5mg PO qHS #HLD -Continue atorvastatin 20mg PO qd #DM -ISS ACHS -BGM -as per pt, recent A1c was ~13. poorly controlled -Continue gabapentin 600mg PO BID for neuropathy #COPD -Continue symbicort 1 puff IH BID -Ventolin 1-2 puffs IH q6h PRN #Hx R DVT -Holding home coumadin 7.5mg PO qd -Continue INR checks, currently sub-therapeutic -Started on hep gtt - as may need debridement #Insomnia -Continue ambien 5mg PO qHS PRN #Depression -Will hold escitalopram 20mg PO qHS as pt QTc 473ms -Continue to check EKG #F/E/N -IV NS 100 cc/hr -Continue to monitor electrolytes -Sodium controlled, diabetic diet #PPX DVT: on heparin gtt #Dispo med-surg Pt's pharmacy closed in evening, please call in AM for med rec thank you Visit type - Emergency Visit Emergency Visit: Yes ED Registration Date: 09/25/17 Care time: The patient presented to the Emergency Department on the above date and was hospitalized for further evaluation of their emergent condition. - New Patient This patient is new to me today: Yes Date on this admission: 09/26/17 - Critical Care Critical Care patient: No Hospitalist Screening - Colonoscopy Questionnaire Colonoscopy Questionnaire: Colonoscopy Questionnaire - Patient: 50 - 75 years old and never had a screening colonoscopy: Unknown History of colon or rectal polyps, or CA: Unknown History of IBD, Crohn's disease or UC: Unknown History of abdominal radiation therapy as a child: Unknown - Relative: 1 with colon or rectal CA, or polyps at age 60 or younger: Unknown Colon or rectal CA diagnosed at age 45 or younger: Unknown Multiple relatives with colon or rectal CA: Unknown - Outcome: Screening Result: Negative Screen
[2017-09-25] MEDS ORDERED: WARFARIN NA 7.5 MG TABLET (FP) PO SCH (21:30)
[2017-09-25] MEDS ORDERED: VANCOMYCIN 1 GRAM (PRE-DOCKED) 1,000 MG/250 ML BAG IVPB ONE (21:32)
[2017-09-25] MEDS ORDERED: WARFARIN NA 5 MG TABLET (UD) ONE (21:33)
[2017-09-25] MEDS: PATIENT'S OWN MEDICATION (NON-FORMULARY) (Dolutegravir Sodium 50 MG) PO SCH (21:41)
[2017-09-25] MEDS: COLLAGENASE CLOSTRIDIUM HIST. 30 GRAMS TUBE TP SCH (21:42)
[2017-09-25] MEDS ORDERED: ESCITALOPRAM OXALATE 20 MG TABLET (FP) PO SCH (22:00)
[2017-09-25] MEDS ORDERED: ZOLPIDEM TARTRATE 5 MG TABLET PO SCH (22:00)
[2017-09-25] MEDS ORDERED: HEPARIN NA (PORCINE) 5,000 UNITS/ML 1ML VIAL IVPUSH PRN ×2 (22:32)
[2017-09-25] MEDS: BUDESONIDE/FORMETEROL FUMARATE 160/4.5 mcg INHALER IH SCH (23:30)
[2017-09-25] MEDS: PATIENT'S OWN MEDICATION (NON-FORMULARY) (Emtricitabine/Tenofov Alafenam [Descovy 200-25 M PO SCH (23:56)
[2017-09-25] MEDS: GABAPENTIN 300 MG CAPSULE (FP) PO SCH (23:57)
[2017-09-25] MEDS: LISINOPRIL 5 MG TABLET (FP) PO SCH (23:57)
[2017-09-25] MEDS: HEPARIN SOD,PORK IN 0.45% NACL 25,000 UNITS/500 ML INFUS.BAG IVPB SCH (23:57)
[2017-09-25] MEDS: ATORVASTATIN CA 20 MG TABLET (FP) PO SCH (23:57)
[2017-09-26] MEDS: INSULIN SLIDING SCALE (NOVOLOG) 1 VIAL SQ SCH ×5 (00:01→22:19)
[2017-09-26] MEDS ORDERED: PT OWN MED DRAWER 7, Y5N ONE (02:12)
[2017-09-26] MEDS ORDERED: PIPERACILLIN/TAZOB 3.375 GM/50 ML PRE-DOCKED IVPB ONE (03:30)
[2017-09-26] MEDS ORDERED: PIPERACILLIN/TAZOB 3.375 GM/50 ML PRE-DOCKED IVPB SCH ×2 (04:00→09:00)
[2017-09-26 05:36] VITALS: BMI 29.8
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
[2017-09-26] MEDS ORDERED: INSULIN (NOVOLOG) ASPART 100 UNITS/ML 10ML VIAL ONE ×2 (06:33→11:55)
[2017-09-26 07:28] LABS: BASO % 0.5 % (0-2.0); EOS % 1.9 % (0-4.5); HEMATOCRIT 34.7 % (32.4-45.2); HEMOGLOBIN 11.1 GM/dL (10.7-15.3); LYMPH % 43.8 % (8-40); MCH 25.8 pg (25.7-33.7); MCHC 32.1 g/dl (32.0-36.0); MEAN CELL VOLUME 80.4 fl (80-96); MEAN PLT VOLUME 8.5 fl (7.5-11.1); MONO % 6.1 % (3.8-10.2); NEUT % 47.7 % (42.8-82.8); PLATELET COUNT 231 K/MM3 (134-434); RBC 4.31 M/mm3 (3.60-5.2); RDW 16.2 % (11.6-15.6)
[2017-09-26 07:52] LABS: INR 1.58 (0.82-1.09); PROTHROMBIN TIME (PATIENT) 17.8 SEC (9.98-11.88)
[2017-09-26 08:24] LABS: ANION GAP 6 (8-16); BLOOD UREA NITROGEN 15 mg/dL (7-18); CALCIUM 8.5 mg/dL (8.5-10.1); CHLORIDE 106 mmol/L (98-107); CO2 27 mmol/L (21-32); CREATININE 1.1 mg/dL (0.55-1.02); GLUCOSE,RANDOM 130 mg/dL (74-106); MAGNESIUM 2.2 mg/dL (1.8-2.4); PHOSPHOROUS 3.8 mg/dL (2.5-4.9); SODIUM 139 mmol/L (136-145)
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
[2017-09-26] MEDS: GABAPENTIN 300 MG CAPSULE (FP) PO SCH ×2 (10:33→22:17)
[2017-09-26] MEDS: PATIENT'S OWN MEDICATION (NON-FORMULARY) (Dolutegravir Sodium 50 MG) PO SCH ×2 (10:36→22:22)
--- NOTE | 2017-09-26 11:20 | EKG ---
Test Reason : Blood Pressure : / mmHG Vent. Rate : 081 BPM Atrial Rate : 081 BPM P-R Int : 148 ms QRS Dur : 084 ms QT Int : 408 ms P-R-T Axes : 061 073 062 degrees QTc Int : 473 ms NORMAL SINUS RHYTHM NORMAL ECG WHEN COMPARED WITH ECG OF 04-AUG-2017 18:27, NO SIGNIFICANT CHANGE WAS FOUND Confirmed by REUBEN SNYDER MD ([id number]) on 09/26/2017 11:19:56 AM Referred By: Confirmed By:REUBEN SNYDER MD
[2017-09-26] MEDS: BUDESONIDE/FORMETEROL FUMARATE 160/4.5 mcg INHALER IH SCH ×2 (11:52→22:20)
[2017-09-26] MEDS: COLLAGENASE CLOSTRIDIUM HIST. 30 GRAMS TUBE TP SCH (11:52)
[2017-09-26 13:01] LABS: URINE APPEARANCE CLEAR; URINE BILIRUBIN NEGATIVE (<2.0 mg/dL); URINE BLOOD NEGATIVE (NEGATIVE); URINE COLOR STRAW; URINE GLUCOSE (UA) NEGATIVE (NEGATIVE); URINE KETONE NEGATIVE (NEGATIVE); URINE LEUK ESTERASE NEGATIVE (NEGATIVE); URINE NITRITE NEGATIVE (NEGATIVE); URINE PROTEIN NEGATIVE (NEGATIVE); URINE UROBILINOGEN NEGATIVE mg/dL (0.2-1.0)
[2017-09-26] MEDS ORDERED: ACETAMINOPHEN 325 MG TABLET (FP) PO PRN (15:04)
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
[2017-09-26] MEDS ORDERED: VANCOMYCIN 1,000 MG in DEXTROSE 5%-WATER - 250 ML IVPB SCH (21:15)
[2017-09-26] MEDS: PATIENT'S OWN MEDICATION (NON-FORMULARY) (Emtricitabine/Tenofov Alafenam [Descovy 200-25 M PO SCH (22:16)
[2017-09-26] MEDS: ATORVASTATIN CA 20 MG TABLET (FP) PO SCH (22:17)
[2017-09-26] MEDS: LISINOPRIL 5 MG TABLET (FP) PO SCH (22:17)
[2017-09-26] MEDS: HEPARIN SOD,PORK IN 0.45% NACL 25,000 UNITS/500 ML INFUS.BAG IVPB SCH (22:26)
[2017-09-27] MEDS: INSULIN SLIDING SCALE (NOVOLOG) 1 VIAL SQ SCH ×4 (06:18→22:15)
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
[2017-09-27 08:00] LABS: HEMATOCRIT 34.4 % (32.4-45.2); HEMOGLOBIN 11.1 GM/dL (10.7-15.3); MCH 25.8 pg (25.7-33.7); MCHC 32.2 g/dl (32.0-36.0); MEAN CELL VOLUME 80.1 fl (80-96); MEAN PLT VOLUME 8.6 fl (7.5-11.1); PLATELET COUNT 232 K/MM3 (134-434); RDW 15.8 % (11.6-15.6); WHITE BLOOD COUNT 4.3 K/mm3 (4.0-10.0)
[2017-09-27 08:09] LABS: ANION GAP 4 (8-16); BLOOD UREA NITROGEN 11 mg/dL (7-18); CALCIUM 8.7 mg/dL (8.5-10.1); CHLORIDE 107 mmol/L (98-107); CO2 28 mmol/L (21-32); CREATININE 1.1 mg/dL (0.55-1.02); GLUCOSE,RANDOM 128 mg/dL (74-106); POTASSIUM 4.1 mmol/L (3.5-5.1); SODIUM 139 mmol/L (136-145)
[2017-09-27] MEDS ORDERED: PT OWN MED DRAWER 7, Y5N ONE ×3 (09:09→22:12)
[2017-09-27] MEDS: GABAPENTIN 300 MG CAPSULE (FP) PO SCH ×2 (09:14→22:05)
[2017-09-27] MEDS: BUDESONIDE/FORMETEROL FUMARATE 160/4.5 mcg INHALER IH SCH ×2 (09:15→22:09)
[2017-09-27] MEDS: COLLAGENASE CLOSTRIDIUM HIST. 30 GRAMS TUBE TP SCH (11:14)
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
[2017-09-27 15:19] LABS: BASO % 0.5 % (0-2.0); EOS % 1.1 % (0-4.5); HEMATOCRIT 34.9 % (32.4-45.2); HEMOGLOBIN 11.4 GM/dL (10.7-15.3); LYMPH % 34.2 % (8-40); MCH 26.3 pg (25.7-33.7); MCHC 32.8 g/dl (32.0-36.0); MEAN CELL VOLUME 80.2 fl (80-96); NEUT % 58.2 % (42.8-82.8); PLATELET COUNT 247 K/MM3 (134-434); RBC 4.35 M/mm3 (3.60-5.2); RDW 16.2 % (11.6-15.6); WHITE BLOOD COUNT 6.5 K/mm3 (4.0-10.0)
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
[2017-09-27] MEDS: LISINOPRIL 5 MG TABLET (FP) PO SCH (22:05)
[2017-09-27] MEDS: ATORVASTATIN CA 20 MG TABLET (FP) PO SCH (22:05)
[2017-09-27] MEDS: PATIENT'S OWN MEDICATION (NON-FORMULARY) (Dolutegravir Sodium 50 MG) PO SCH (22:08)
[2017-09-27] MEDS: PATIENT'S OWN MEDICATION (NON-FORMULARY) (Emtricitabine/Tenofov Alafenam [Descovy 200-25 M PO SCH (22:08)
[2017-09-27] MEDS ORDERED: INSULIN (NOVOLOG) ASPART 100 UNITS/ML 10ML VIAL ONE (22:12)
[2017-09-27] MEDS: HEPARIN SOD,PORK IN 0.45% NACL 25,000 UNITS/500 ML INFUS.BAG IVPB SCH (22:15)
[2017-09-28] MEDS ORDERED: INSULIN (NOVOLOG) ASPART 100 UNITS/ML 10ML VIAL ONE ×2 (05:31→21:58)
[2017-09-28] MEDS: INSULIN SLIDING SCALE (NOVOLOG) 1 VIAL SQ SCH ×4 (06:14→22:05)
--- NOTE | 2017-09-28 06:34 | PN ---
Physical Exam: SUBJECTIVE: Patient seen and examined by me this Am - no complaints. No major overnight events. No fevers. Denies cp, cough, sob, f/ c/n/v/d, ab pain, back pain, rashes or peripheral numbness/weakness. s/p bedside debridement of wound yesterday w/ dr nolasco. MRI findings consistent with osteo; awaiting ID recs for tx plan OBJECTIVE: Vital Signs Intake & Output 09/25/17 09/26/17 09/27/17 09/28/17 23:59 23:59 23:59 23:59 Intake Total 510 810 100 Balance 510 810 100 Weight 71.668 kg Period Temp Pulse Resp BP Sys/Cota Pulse Ox Last 24 Hr 97.3 F-98.3 F 68-80 18-18 108-134/58-78 97-100 GENERAL: NAD, A&Ox3 HEAD: Normal with no signs of trauma. ENT: Poor dentition. Ears normal, nares patent, oropharynx clear without exudates, moist mucous membranes. LUNGS: Breath sounds equal, clear to auscultation bilaterally, no wheezes, no crackles, no accessory muscle use. HEART: 2/6 systolic ejection murmur at RUSB. Regular rate and rhythm, S1, S2. ABDOMEN: Soft, nontender, nondistended, normoactive bowel sounds, no guarding, no rebound, no hepatosplenomegaly, no masses. EXTREMITIES: L medial vertical fasciotomy scar on mid calf. R cubital fossa scar. Medial distal tip of 1st digit on L foot, s/p debridement. Mild purulence in anterior margin of wound, no erythema or flutuance noted. No exposed bone. 1 + pulses DP, PT bilaterally. NEUROLOGICAL: Cranial nerves II through XII grossly intact. Normal speech, gait not observed. PSYCH: Normal mood, normal affect. SKIN: Warm, dry, normal turgor, no rashes or lesions noted Laboratory Results - last 24 hr CBC, BMP 09/28/17 06:00 09/28/17 06:00 09/27/17 14:30 09/27/17 06:00 09/27/17 09/27/17 09/27/17 06:00 06:00 06:00 WBC 4.3 RBC 4.30 Hgb 11.1 Hct 34.4 MCV 80.1 MCH 25.8 MCHC 32.2 RDW 15.8 H Plt Count 232 MPV 8.6 Neutrophils % Lymphocytes % Monocytes % Eosinophils % Basophils % ESR PTT (Actin FS) 69.0 H Sodium 139 Potassium 4.1 Chloride 107 Carbon Dioxide 28 Anion Gap 4 L BUN 11 Creatinine 1.1 H POC Glucometer Random Glucose 128 H Calcium 8.7 C-Reactive Protein 1.3 H 09/27/17 09/27/17 09/27/17 06:00 06:17 11:30 WBC RBC Hgb Hct MCV MCH MCHC RDW Plt Count MPV Neutrophils % Lymphocytes % Monocytes % Eosinophils % Basophils % ESR 38 H PTT (Actin FS) Sodium Potassium Chloride Carbon Dioxide Anion Gap BUN Creatinine POC Glucometer 139 227 Random Glucose Calcium C-Reactive Protein 09/27/17 09/27/17 09/27/17 14:30 17:03 22:10 WBC 6.5 D RBC 4.35 Hgb 11.4 Hct 34.9 MCV 80.2 MCH 26.3 MCHC 32.8 RDW 16.2 H Plt Count 247 MPV 9.0 Neutrophils % 58.2 D Lymphocytes % 34.2 D Monocytes % 6.0 Eosinophils % 1.1 Basophils % 0.5 ESR PTT (Actin FS) Sodium Potassium Chloride Carbon Dioxide Anion Gap BUN Creatinine POC Glucometer 148 161 Random Glucose Calcium C-Reactive Protein 09/28/17 06:13 WBC RBC Hgb Hct MCV MCH MCHC RDW Plt Count MPV Neutrophils % Lymphocytes % Monocytes % Eosinophils % Basophils % ESR PTT (Actin FS) Sodium Potassium Chloride Carbon Dioxide Anion Gap BUN Creatinine POC Glucometer 138 Random Glucose Calcium C-Reactive Protein Active Medications Generic Name Dose Route Start Last Admin Trade Name Josephine PRN Reason Stop Dose Admin Acetaminophen 325 mg 09/26/17 15:04 09/27/17 01:26 Tylenol - PO 325 mg Q4H PRN Administration PAIN LEVEL 1-5 Albuterol Sulfate 1 - 2 puff 09/25/17 21:06 Ventolin Hfa Inhaler - IH Q6H PRN ASTHMA Atorvastatin Calcium 20 mg 09/25/17 22:00 09/27/17 22:05 Lipitor - PO 20 mg HS JENNIFER Administration Budesonide/Formoterol Fumarate 1 puff 09/25/17 22:00 09/27/17 22:09 Symbicort 160/4.5mcg - IH 1 puff BID JENNIFER Administration Collagenase 1 applic 09/25/17 21:15 09/27/17 11:14 Santyl - TP 1 applic DAILY JENNIFER Administration Escitalopram Oxalate 20 mg 09/25/17 22:00 Lexapro - PO HS JENNIFER Gabapentin 600 mg 09/25/17 22:00 09/27/17 22:05 Neurontin - PO 600 mg BID JENNIFER Administration Heparin Sodium (Porcine) 1,000 unit 09/25/17 22:32 Heparin - IVPUSH PRN PRN Heparin Heparin Sodium (Porcine) 5,000 unit 09/25/17 22:32 Heparin - IVPUSH PRN PRN Heparin HEPARIN SOD,PORK IN 0.45% NACL 25,000 units in 500 mls @ 20 mls/hr 09/25/17 22 :45 09/27/17 22:15 Heparin-1/2ns 25,000 Units/500 IVPB 1,000 unit/hr TITR JENNIFER 20 mls/hr Protocol Administration 1,000 UNIT/HR Insulin Aspart 1 vial 09/25/17 22:00 09/28/17 06:14 Novolog Vial Sliding Scale - SQ Not Given ACHS [facility] Protocol Lisinopril 5 mg 09/25/17 22:00 09/27/17 22:05 Prinivil PO 5 mg HS JENNIFER Administration Non-Formulary Medication 1 each 09/25/17 22:00 09/27/17 22:08 Emtricitabine/Tenofov Alafenam [Descovy 200-25 Mg Tablet (Nf)] PO 1 each HS JENNIFER Administration Non-Formulary Medication 50 mg 09/27/17 22:00 09/27/17 22:08 Dolutegravir Sodium PO 50 mg HS JENNIFER Administration Zolpidem Tartrate 5 mg 09/25/17 21:12 Ambien - PO HS PRN INSOMNIA Microbiology 09/25/17 16:08 Blood - Peripheral Venous Blood Culture - Preliminary NO GROWTH OBTAINED AFTER 48 HOURS, INCUBATION TO CONTINUE FOR 3 DAYS. 09/25/17 15:33 Blood - Peripheral Venous Blood Culture - Preliminary NO GROWTH OBTAINED AFTER 48 HOURS, INCUBATION TO CONTINUE FOR 3 DAYS. 09/26/17 11:45 Urine - Urine Clean Catch Urine Culture - Final NO GROWTH OBTAINED EKG 09/25- NSR Qtc 473ms Foot XR 09/26 - Imaging of the toes reveal degenerative changes, partially flexed toes, bunion formation by the first MTP joint but no sign of fracture or subluxation. Blastic or lytic changes are not seen. There is evidence of old trauma by the base of the fifth metatarsal. MRI L foot 09/27 - Impression: 1. Soft tissue edema of the first toe with fluid rounding the distal phalanx. 2. Bone marrow edema of the distal phalanx of the first toe which is nonspecific however in the setting of an infectious process is most consistent with osteomyelitis. ASSESSMENT/PLAN: 57 y/o F with PMH HTN, DM, HLD, HIV (CD4 809, VL 80; follows with Dr. Cheung), CAD (s/p stent 2014), recent fasciotomy s/p L popliteal a. occlusion for compartment syndrome (July 2017), b/l SFA stents (04/17, 05/18), hx R DVT ( on Coumadin), iron deficiency anemia, COPD, who presents to the ED c/o L great toe lesion. MRI results suggestive of osteo of 1st digit. Will f/u with ID and podiatry on plan for abx coeverage. podiatry, ID and vascular following. #L 1st distal phalange ulcer - MRI suggestive of osteomyelitis - consider wound cultures; will likely need IV abx; will defer ID recs - CRP/ESR elevated; CRP 1.3 (1.0 in 07/2017) -Continue wound care, santyl application -ID consulted, will defer to recs for abx tx -Podiatry consulted, recs appreciated -Vasc consulted; s/p bedside debridement yesterday with dr. nolasco -all cultures negative to date -Heparin gtt - likely debridement pending MRI results #HIV - (CD4 809, VL80) -Id following -C/w Dolutegravir 50mg qd -Descovy 200-25mg tab - 1each PO qHS #HTN- currently controlled -Continue lisinopril 5mg PO qHS #HLD -Continue atorvastatin 20mg PO qd #DM - prior a1c 13, poorly controlled -ISS ACHS -BGM - Continue gabapentin 600mg PO BID for neuropathy #COPD -Continue symbicort 1 puff IH BID -Ventolin 1-2 puffs IH q6h PRN #Hx R DVT -Holding home coumadin 7.5mg PO qd -Serial INRs -hep gtt #Insomnia -ambien 5mg PO qHS PRN #Depression -Hold escitalopram 20mg PO qHS as pt QTc 473ms #F/E/N -PO hydration -serial lytes -Sodium controlled, diabetic diet #PPX heparin gtt #Dispo now inpt for suspected Osteo of L 1st digit Plan discussed with Dr. Jordin Davila, PGY1 Visit type - Emergency Visit Emergency Visit: Yes ED Registration Date: 09/28/17 Care time: The patient presented to the Emergency Department on the above date and was hospitalized for further evaluation of their emergent condition. - New Patient This patient is new to me today: No - Critical Care Critical Care patient: No
[2017-09-28 07:56] LABS: BASO % 0.5 % (0-2.0); HEMATOCRIT 34.6 % (32.4-45.2); HEMOGLOBIN 11.1 GM/dL (10.7-15.3); LYMPH % 45.7 % (8-40); MCH 25.4 pg (25.7-33.7); MCHC 31.9 g/dl (32.0-36.0); MEAN CELL VOLUME 79.4 fl (80-96); MEAN PLT VOLUME 8.6 fl (7.5-11.1); MONO % 6.7 % (3.8-10.2); NEUT % 45.1 % (42.8-82.8); PLATELET COUNT 231 K/MM3 (134-434); RBC 4.36 M/mm3 (3.60-5.2); RDW 15.9 % (11.6-15.6)
[2017-09-28 08:37] LABS: CHLORIDE 103 mmol/L (98-107); POTASSIUM 4.2 mmol/L (3.5-5.1); SODIUM 141 mmol/L (136-145)
[2017-09-28 08:43] LABS: ANION GAP 13 (8-16); BLOOD UREA NITROGEN 10 mg/dL (7-18); CALCIUM 9.3 mg/dL (8.5-10.1); CO2 25 mmol/L (21-32); GLUCOSE,RANDOM 113 mg/dL (74-106)
[2017-09-28] MEDS: COLLAGENASE CLOSTRIDIUM HIST. 30 GRAMS TUBE TP SCH (10:06)
[2017-09-28] MEDS: GABAPENTIN 300 MG CAPSULE (FP) PO SCH ×2 (10:06→22:06)
[2017-09-28] MEDS: BUDESONIDE/FORMETEROL FUMARATE 160/4.5 mcg INHALER IH SCH ×2 (10:08→22:10)
[2017-09-28] MEDS ORDERED: PROCHLORPERAZINE INJECTION 10 MG/2 ML VIAL IM PRN (13:20)
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
[2017-09-28] MEDS: LISINOPRIL 5 MG TABLET (FP) PO SCH (22:06)
[2017-09-28] MEDS: ATORVASTATIN CA 20 MG TABLET (FP) PO SCH (22:06)
[2017-09-28] MEDS: PATIENT'S OWN MEDICATION (NON-FORMULARY) (Dolutegravir Sodium 50 MG) PO SCH (22:07)
[2017-09-28] MEDS: PATIENT'S OWN MEDICATION (NON-FORMULARY) (Emtricitabine/Tenofov Alafenam [Descovy 200-25 M PO SCH (22:08)
[2017-09-28] MEDS ORDERED: PT OWN MED DRAWER 7, Y5N ONE (22:43)
[2017-09-28] MEDS: HEPARIN SOD,PORK IN 0.45% NACL 25,000 UNITS/500 ML INFUS.BAG IVPB SCH (22:55)
[2017-09-29] MEDS: INSULIN SLIDING SCALE (NOVOLOG) 1 VIAL SQ SCH ×2 (06:00→14:00)
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
[2017-09-29 07:54] LABS: HEMATOCRIT 33.6 % (32.4-45.2); HEMOGLOBIN 11.1 GM/dL (10.7-15.3); MCH 26.5 pg (25.7-33.7); MCHC 33.1 g/dl (32.0-36.0); MEAN CELL VOLUME 80.2 fl (80-96); MEAN PLT VOLUME 8.9 fl (7.5-11.1); PLATELET COUNT 226 K/MM3 (134-434); RBC 4.19 M/mm3 (3.60-5.2); WHITE BLOOD COUNT 5.3 K/mm3 (4.0-10.0)
[2017-09-29 08:18] LABS: ALBUMIN 3.1 g/dl (3.4-5.0); ANION GAP 7 (8-16); BLOOD UREA NITROGEN 10 mg/dL (7-18); CALCIUM 8.6 mg/dL (8.5-10.1); CHLORIDE 105 mmol/L (98-107); CO2 26 mmol/L (21-32); GLUCOSE,RANDOM 163 mg/dL (74-106); SODIUM 138 mmol/L (136-145)
[2017-09-29 08:22] LABS: ALK PHOS 133 U/L (45-117); BILIRUBIN,TOTAL 0.1 mg/dL (0.2-1.0); CREATININE 1.1 mg/dL (0.55-1.02); TOT PROT 7.1 g/dl (6.4-8.2)
[2017-09-29 08:28] LABS: POTASSIUM 3.9 mmol/L (3.5-5.1); SGOT/AST 23 U/L (15-37); SGPT/ALT 26 U/L (12-78)
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
[2017-09-29] MEDS ORDERED: AMOX TR/POT CLAV 875MG/125MG TABLETS (FP) PO ONE (10:30)
[2017-09-29] MEDS: GABAPENTIN 300 MG CAPSULE (FP) PO SCH (10:52)
[2017-09-29] MEDS: BUDESONIDE/FORMETEROL FUMARATE 160/4.5 mcg INHALER IH SCH (10:52)
[2017-09-29] MEDS: COLLAGENASE CLOSTRIDIUM HIST. 30 GRAMS TUBE TP SCH (10:52)
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
[2017-09-29 12:40] LABS: INR 1.44 (0.82-1.09); PROTHROMBIN TIME (PATIENT) 16.3 SEC (9.98-11.88)
--- NOTE | 2017-09-29 14:03 | DS ---
Physical Exam: SUBJECTIVE: Patient seen and examined - no overnight events, complaints. afebrile, VSS. denies f/c/n/v/d, cp, sob, STONE , dizziness, dysuria, neuro symptoms. Plan for d/c today by ID recs with PO augmentin as clinically unlikely to have osteomyelitis. - pt counseled on restarting lovenox injections + warfarin until next INR check. Counseled on abx regimen PO for two weeks with f/u with Dr. Cheung in [facility]. all questions answered. OBJECTIVE: Vital Signs Intake & Output 09/26/17 09/27/17 09/28/17 09/29/17 23:59 23:59 23:59 23:59 Intake Total 510 810 738 290 Balance 510 810 738 290 Period Temp Pulse Resp BP Sys/Cota Pulse Ox Last 24 Hr 97.6 F-98.2 F 50-99 18-20 115-138/55-89 100 PHYSICAL EXAM GENERAL: NAD, A&Ox3 HEAD: Normal with no signs of trauma. ENT: Poor dentition. Ears normal, nares patent, oropharynx clear without exudates, moist mucous membranes. LUNGS: Breath sounds equal, clear to auscultation bilaterally, no wheezes, no crackles, no accessory muscle use. HEART: 2/6 systolic ejection murmur at RUSB. Regular rate and rhythm, S1, S2. ABDOMEN: Soft, nontender, nondistended, normoactive bowel sounds, no guarding, no rebound, no hepatosplenomegaly, no masses. EXTREMITIES: L medial and lateral vertical fasciotomy scars on mid calf. R cubital fossa scar. 2nd degree burn ulcer on medial distal tip of 1st digit on L foot. no erythema or flutuance noted. No exposed bone. 1+ pulses DP, PT bilaterally. NEUROLOGICAL: Cranial nerves II through XII grossly intact. Normal speech, gait not observed. PSYCH: Normal mood, normal affect. SKIN: Warm, dry, normal turgor, no rashes or lesions noted LABS Laboratory Results - last 24 hr CBC, BMP 09/29/17 07:00 09/29/17 07:00 09/28/17 09/28/17 09/28/17 11:36 17:09 22:04 WBC RBC Hgb Hct MCV MCH MCHC RDW Plt Count MPV PT with INR INR PTT (Actin FS) Sodium Potassium Chloride Carbon Dioxide Anion Gap BUN Creatinine Creat Clearance w eGFR POC Glucometer 116 145 134 Random Glucose Calcium Total Bilirubin AST ALT Alkaline Phosphatase Total Protein Albumin 09/29/17 09/29/17 09/29/17 05:56 07:00 07:00 WBC 5.3 RBC 4.19 Hgb 11.1 Hct 33.6 MCV 80.2 MCH 26.5 MCHC 33.1 RDW 16.0 H Plt Count 226 MPV 8.9 PT with INR INR PTT (Actin FS) 58.6 H Sodium Potassium Chloride Carbon Dioxide Anion Gap BUN Creatinine Creat Clearance w eGFR POC Glucometer 192 Random Glucose Calcium Total Bilirubin AST ALT Alkaline Phosphatase Total Protein Albumin 09/29/17 09/29/17 07:00 07:00 WBC RBC Hgb Hct MCV MCH MCHC RDW Plt Count MPV PT with INR 16.30 H INR 1.44 H PTT (Actin FS) Sodium 138 Potassium 3.9 Chloride 105 Carbon Dioxide 26 Anion Gap 7 L BUN 10 Creatinine 1.1 H Creat Clearance w eGFR 51.57 POC Glucometer Random Glucose 163 H Calcium 8.6 Total Bilirubin 0.1 L D AST 23 ALT 26 Alkaline Phosphatase 133 H Total Protein 7.1 Albumin 3.1 L Microbiology 09/25/17 16:08 Blood - Peripheral Venous Blood Culture - Preliminary NO GROWTH OBTAINED AFTER 72 HOURS, INCUBATION TO CONTINUE FOR 2 DAYS. 09/25/17 15:33 Blood - Peripheral Venous Blood Culture - Preliminary NO GROWTH OBTAINED AFTER 72 HOURS, INCUBATION TO CONTINUE FOR 2 DAYS. EKG 09/25- NSR Qtc 473ms Foot XR 09/26 - Imaging of the toes reveal degenerative changes, partially flexed toes, bunion formation by the first MTP joint but no sign of fracture or subluxation. Blastic or lytic changes are not seen. There is evidence of old trauma by the base of the fifth metatarsal. MRI L foot 09/27 - Impression: 1. Soft tissue edema of the first toe with fluid rounding the distal phalanx. 2. Bone marrow edema of the distal phalanx of the first toe which is nonspecific however in the setting of an infectious process is most consistent with osteomyelitis. HOSPITAL COURSE: Prehospital course: 57 y/o F with PMH HTN, DM, HLD, HIV (CD4 809, VL 80; follows with Dr. Cheung), CAD (s/p stent 2014), recent fasciotomy s/p L popliteal a. occlusion for compartment syndrome (July 2017), b/l SFA stents (04/17, 05/18), hx R DVT ( on Coumadin), iron deficiency anemia, COPD, who presents to the ED c/o L great toe wound infection over the past two weeks. As per patient, two weeks ago, her L ankle was tender, painful and edematous, so she tried to relieve her pain with a heating pad. Pt left the heating pad on her ankle for 30min-1 hour, and found that her L great toe had a burn and blister on its lateral aspect. The blister popped after she soaked her toe in warm water and epsom salt, and she saw Dr. Nolasco the next day who recommended she apply Santyl to the wound. Over the next few days, her LLE became increasingly edematous, so she saw a family and consumer education teacher and was told to come to the ED for further evaluation, MRI to r/o OM , and abx. During this time, pt denies discharge, foul odor, or erythema to the wound. Denies STONE, fever, chills, SOB or chest pain, or changes in urinary or bowel function. Hospital course: In ED, pt with no lab abnormalities, UA negative. Received one dose of vanc/ zosyn. EKG normal. ID, vascular and podiatry consulted. Home HIV meds continued. Started on heparin gtt as presumptive debridement. Blood and urine cx's sent. XR of foot with no gross evidence of osteo. Per ID, no indication for abx, as osteo unlikely. ESR/CRP elevated. Seen by Dr. nolasco, santyl applied daily, bedside debridement performed during admission. Pt with negative cultures , no WBC count or fevers during admission. MRI suggestive of osteo during admission, however given summative clinical picture, decision per ID team to discharge pt on PO augmentin for two weeks with outpt f/u. Pt counseled to continue normal wound care and hyperbaric schedule as before, monitor for signs of infection. Discharge on lovenox injections and coumadin home dose, with INR check scheduled for , 10/02. All cultures negative on discharge. Date of Admission:09/28/17 Date of Discharge: 09/29/17 Pt is medically stable and cleared for discharge with f/u in wound care and hyperbarics with Dr. Mojica and Dr. Nolasco next week, and f/u with Dr. Cheung in the [place] clinic in two weeks for further adjustments to PO abx regimen. Minutes to complete discharge: 35 Discharge Summary Reason For Visit: OPEN WOUND FOOR,UNCON DIABETES ISIS,HIV Current Active Problems Wound, open, foot (Acute) Human immunodeficiency virus (HIV) disease (Chronic) Uncontrolled diabetes mellitus (Chronic) Condition: Stable - Instructions Diet, Activity, Other Instructions: During your stay at [facility], you were treated for suspected infection of your left toe. You received imaging of your left foot and were seen by our vascular, podiatric and infectious disease team. Per our clinical assessment, it has been determined that it is low suspicion that you have an infection in the bone of your left toe and can be discharged home with oral antibiotics. Medications: The following medications were added to your medication regimen. Please take them as directed below. Augmentin 875 mg, take one pill by mouth, twice day, for the next two weeks (09/30 -10/13). Please do not stop taking this medication until you are seen by Dr. Cheung in the [place] clinic in 1-2 weeks. Lovenox 70mg, take one injection, twice a day, until you have your INR checked and you are in the appropriate range (2-3). Please confer with your PMD before stopping this medication YOU NEED INR CHECK IN NEXT 2-3 DAYS (Sunday or latest Sunday next week). Please continue to take your home coumadin at your previously prescribed dose, in addition to your lovenox injection twice a day upon leaving the hospital Please continue to take all other home medication as previously prescribed. Follow-ups: Please follow-up with your primary care physician in 1 week. If you require a referral for a primary care provider, we have provided a referral to the resident clinic with Dr. Berry. Please call their office to schedule an appointment. Their contact information has been provided Please follow-up with our vascular surgeon, Dr. Nolasco, in 1 week for continuation of your chronic wound care and hyperbaric therapy. His contact information has been provided in this discharge packet. Please call to schedule an appointment. Please follow-up with our family and consumer education teacher, Dr. Mojica, in 1 week for continuation of your podiatric care. His contact information has been provided in this discharge packet. Please call to schedule an appointment. Please follow-up with our infectious disease specialist, Dr. Cheung, in 7-10 weeks in the [place] clinic for further adjustment of your antibiotic regimen. His contact information has been provided in this discharge packet. Please call to schedule an appointment. Wound care clinic and hyperbaric oxygen treatment follow up next week. Please continue your normal INR monitoring schedule, with you next appointment on Sunday, 10/02. Diet/exercise: Please use your previously prescribed walking boot for your left foot when walking. Please continue daily dressing changes with application of Santyl per Dr. Nolasco's recommendations. Please return to the hospital if you experience any of the following symptoms: - Persistent fevers/chills - Redness, swelling or copious pus from your left toe or foot - Worsening numbness/weakness of your left foot - Any new or concerning symptoms Referrals: Matthew Berry MD [Staff Physician] - 1 Week Leonel Cheung MD [Staff Physician] - 2 Weeks Gabriel Nolasco MD [Staff Physician] - 1 Week Dian Mojica DPM [Staff Physician] - 1 Week Disposition: HOME - Home Medications Comprehensive Discharge Medication List: Ambulatory Orders Gabapentin [Neurontin] 600 mg PO BID 07/06/16 Magnesium 200 mg PO DAILY PRN 07/06/16 Montelukast Na [Singulair -] 10 mg PO HS 04/26/17 Olopatadine HCl [Pataday] 1 drop OP DAILY #2.5 ml 07/04/17 Pravastatin Sodium [Pravachol -] 40 mg PO HS 07/09/17 oxyCODONE HCL [Roxicodone -] 10 mg PO Q4H PRN #25 tablet MDD 30 07/20/17 Budesonide/Formeterol Fumarate [SYMBICORT 160/4.5mcg -] 1 puff IH BID #1 inhaler 08/08/17 Dolutegravir Sodium [Tivicay] 50 mg PO DAILY #30 tablet 08/08/17 Emtricitabine/Tenofov Alafenam [Descovy 200-25 mg Tablet (Nf)] 1 each PO HS #30 tablet 08/08/17 Lisinopril 5 mg PO HS #30 tablet 08/08/17 Loratadine [Claritin -] 10 mg PO DAILY PRN #30 tablet 08/08/17 Becaplermin [Regranex] 15 gm TP DAILY #1 gel..gram. 08/10/17 Collagenase Clostridium Hist. [Santyl] 1 applic TP DAILY #90 oint...g. 08/10/17 Oxycodone HCl/Acetaminophen [Oxycodone-Acetaminophen 5-325] 1 each PO QID #90 tablet MDD 4 08/10/17 Albuterol Sulfate Inhaler - [Ventolin HFA Inhaler -] 1 - 2 inh PO Q6H PRN #1 inhaler 08/15/17 Sodium Chloride 0.9% Irrig [Normal Saline 0.9% Irrig. Soln -] 500 ml IR ASDIR # 7 btl 08/15/17 Escitalopram Oxalate [Lexapro -] 20 mg PO HS #30 tablet 08/16/17 Zolpidem Tartrate [Ambien] 5 mg PO HS #30 tab MDD 1 08/16/17 Ferrous Sulfate [Feosol] 325 mg PO DAILY #30 tablet 08/24/17 Warfarin Sodium [Coumadin] 1 tab PO DAILY 09/25/17 Amoxicillin/Potassium Clav [Augmentin 875-125 Tablet] 1 each PO BID #28 tablet 09/29/17 Enoxaparin [Lovenox -] 70 mg SQ BID #30 disp.syrin 09/29/17 This patient is new to me today: No Emergency Visit: No Critical Care patient: No - Discharge Referral Referred to [facility] No
[2017-09-29] MEDS ORDERED: ENOXAPARIN NA (PORCINE) 80 MG/0.8 ML DISP.SYRIN SQ ONE (15:00)
[2017-09-29 18:25] VITALS: BP 102/55; PULSE 70; TEMP 97.8
== END 2017-09-29 16:45 | disposition home or self-care (01) | DRG 935 ==
LOC: JER 14:57 → JERBED 21:17 → INTOOBSV 21:17 → UNDOADMOB 21:17 → JERBED 22:21 → J8W 22:21 → J7W 22:47 → J8W 09-26 09:25 → JERBED 09-26 09:25 → J7W 09-26 09:25 → OBSVTOIN 09-28 14:29
PROVIDERS: ADMIT Internal Medicine; ATTEND Hospitalist
PROC: 0JBR0ZZ Excision of Left Foot Subcutaneous Tissue and Fascia, Open Approach (ICD-10-PCS; principal; 2017-09-27)
DX: T25.232A Burn of second degree of left toe(s) (nail), initial encounter (principal); L97.528 Non-pressure chronic ulcer of other part of left foot with other specified severity; Z21 Asymptomatic human immunodeficiency virus [HIV] infection status; I25.10 Atherosclerotic heart disease of native coronary artery without angina pectoris; I10 Essential (primary) hypertension; E11.51 Type 2 diabetes mellitus with diabetic peripheral angiopathy without gangrene; F17.200 Nicotine dependence, unspecified, uncomplicated; K21.9 Gastro-esophageal reflux disease without esophagitis; E78.00 Pure hypercholesterolemia, unspecified; E11.621 Type 2 diabetes mellitus with foot ulcer; L03.032 Cellulitis of left toe; J44.9 Chronic obstructive pulmonary disease, unspecified; D50.9 Iron deficiency anemia, unspecified; F41.8 Other specified anxiety disorders; G47.09 Other insomnia; Z96.652 Presence of left artificial knee joint; Z95.5 Presence of coronary angioplasty implant and graft; Z87.442 Personal history of urinary calculi; Z86.718 Personal history of other venous thrombosis and embolism; Z79.01 Long term (current) use of anticoagulants; Z98.890 Other specified postprocedural states; X19.XXXA Contact with other heat and hot substances, initial encounter; Y92.008 Other place in unspecified non-institutional (private) residence as the place of occurrence of the external cause
CPT/HCPCS: 36415; 73610-TC-LT-FY; 73630-TC-LT; 73718-LT; 80048; 80053; 81003; 82803; 82962; 83605; 83735; 84100; 84484; 85025; 85027; 85610; 85651; 85730; 86140; 87040; 87086; 93005; 93010; 99283-25; G0378; G0463-25; J7030

== ENCOUNTER 2017-11-08 09:34 | Day surgery (SDC) | payer OTHER ==
[2017-11-07 16:10] VITALS: BMI 28.3
[~2017-11-08 09:34] MED LIST: LIDOCAINE HCL 1%, 10 MG/ML (20ML VIAL) INF ONE
[2017-11-08 10:29] LABS: INR 0.95 (0.82-1.09); PROTHROMBIN TIME (PATIENT) 10.7 SEC (9.7-13.0)
[2017-11-08] MEDS ORDERED: LACTATED RINGERS SOLUTION 1,000 ML IV SCH (12:00)
[2017-11-08] MEDS ORDERED: LIDOCAINE HCL 1%, 10 MG/ML (20ML VIAL) ONE (12:06)
[2017-11-08] MEDS ORDERED: PROMETHAZINE HCL 25 MG/1 ML VIAL IVPB PRN (12:10)
[2017-11-08] MEDS ORDERED: ONDANSETRON 4 MG/2 ML VIAL IVPUSH PRN (12:10)
[2017-11-08] MEDS ORDERED: MIDAZOLAM HCL 2 MG/2 ML SINGLE DOSE VIAL ONE ×2 (12:16)
[2017-11-08] MEDS ORDERED: SODIUM CHLORIDE 0.9% P/F 10 ML VIAL IJ ONE (12:35)
[2017-11-08] MEDS ORDERED: ceFAZolin SODIUM 1 GM VIAL ONE (12:35)
[2017-11-08] MEDS ORDERED: LIDOCAINE HCL/PF 2% SDV 5ML VIAL ONE (12:36)
[2017-11-08] MEDS ORDERED: PROPOFOL 20 ML ONE ×2 (12:37→13:08)
[2017-11-08] MEDS ORDERED: LIDOCAINE HCL 1%, 10 MG/ML (20ML VIAL) INF ONE (12:41)
[2017-11-08] MEDS ORDERED: HEPARIN NA (PORCINE) 5,000 UNITS/ML 1ML VIAL ONE (12:51)
--- NOTE | 2017-11-08 14:00 | OP ---
Operative Note - Note: Operative Date: 11/08/17 Pre-Operative Diagnosis: RLE claudication Operation: Aortogram, RLE angiogram, SFA angioplasty with stent placement Findings: SFA occlusion Post-Operative Diagnosis: Same as Pre-op Anesthesia: Fractional Estimated Blood Loss (mls): 50 Operative Report Dictated: Yes
--- NOTE | 2017-11-08 14:02 | HP ---
Admitting History and Physical - Admission Chief Complaint: RLE claudication for one block Limitations to Obtaining History: No Limitations - Past Medical History Cardiovascular: Yes: HTN, Hyperlipdemia Pulmonary: Yes: Asthma Hepatobiliary: Yes: Cholelithiasis ...LMP: 09/30/09 ...LMP Comment: 2007 Infectious Disease: Yes: HIV Endocrine: Yes: Diabetes Mellitus - Past Surgical History Past Surgical History: Yes: Cholecystectomy - Smoking History Smoking history: Current every day smoker Have you smoked in the past 12 months: No Aproximately how many cigarettes per day: 5 If you are a former smoker, when did you quit?: 08/2017 - Alcohol/Substance Use Hx Alcohol Use: No - Social History ADL: Independent History of Recent Travel: No Home Medications - Allergies Allergies/Adverse Reactions: Allergies Allergy/AdvReac Type Severity Reaction Status Date / Time Fish Containing Products Allergy Verified 11/08/17 10:44 - Home Medications Home Medications: Ambulatory Orders Gabapentin [Neurontin] 600 mg PO BID 07/06/16 Magnesium 200 mg PO DAILY PRN 07/06/16 Olopatadine HCl [Pataday] 1 drop OP DAILY #2.5 ml 07/04/17 Pravastatin Sodium [Pravachol -] 40 mg PO HS 07/09/17 Dolutegravir Sodium [Tivicay] 50 mg PO DAILY #30 tablet 08/08/17 Emtricitabine/Tenofov Alafenam [Descovy 200-25 mg Tablet (Nf)] 1 each PO HS #30 tablet 08/08/17 Lisinopril 5 mg PO HS #30 tablet 08/08/17 Loratadine [Claritin -] 10 mg PO DAILY PRN #30 tablet 08/08/17 Becaplermin [Regranex] 15 gm TP DAILY #1 gel..gram. 08/10/17 Oxycodone HCl/Acetaminophen [Oxycodone-Acetaminophen 5-325] 1 each PO QID #90 tablet MDD 4 08/10/17 Albuterol Sulfate Inhaler - [Ventolin HFA Inhaler -] 1 - 2 inh PO Q6H PRN #1 inhaler 08/15/17 Escitalopram Oxalate [Lexapro -] 20 mg PO HS #30 tablet 10/17/17 Mirtazapine [Remeron -] 1 tablet PO HS #30 tablet 10/17/17 Zolpidem Tartrate [Ambien] 5 mg PO HS #30 tab MDD 1 10/17/17 Lactobac 40/Bifido 3/S.thermop [Cvs Probiotic 100 Livan Cell Cap] 1 each PO DAILY #10 capsule 10/25/17 Rivaroxaban [Xarelto -] 20 mg PO DAILY #30 tablet 10/25/17 Family Disease History - Family Disease History Family Disease History: Heart Disease: Grandparent, Father Review of Systems - Review of Systems Constitutional: reports: No Symptoms Eyes: reports: No Symptoms HENT: reports: No Symptoms Neck: reports: No Symptoms Cardiovascular: reports: No Symptoms Respiratory: reports: No Symptoms Gastrointestinal: reports: No Symptoms Genitourinary: reports: No Symptoms Breasts: reports: No Symptoms Reported Musculoskeletal: reports: No Symptoms Integumentary: reports: No Symptoms, Incision Neurological: reports: No Symptoms Endocrine: reports: No Symptoms Hematology/Lymphatic: reports: No Symptoms Psychiatric: reports: No Symptoms Physical Examination Vital Signs: Vital Signs Temperature 97.7 F 11/08/17 11:33 Pulse Rate 87 11/08/17 11:33 Respiratory Rate 20 11/08/17 11:33 Blood Pressure 139/99 11/08/17 11:33 O2 Sat by Pulse Oximetry (%) 100 11/08/17 10:32 Constitutional: Yes: Well Nourished, No Distress, Calm Eyes: Yes: WNL, Conjunctiva Clear, EOM Intact HENT: Yes: WNL, Atraumatic, Normocephalic Neck: Yes: WNL, Supple, Trachea Midline Cardiovascular: Yes: WNL, Regular Rate and Rhythm Respiratory: Yes: WNL, Regular, CTA Bilaterally Gastrointestinal: Yes: WNL, Normal Bowel Sounds Musculoskeletal: Yes: WNL Extremities: Yes: WNL Edema: No Integumentary: Yes: WNL Neurological: Yes: WNL, Alert, Oriented ...Motor Strength: WNL Psychiatric: Yes: WNL Problem List - Problems (1) Claudication Code(s): I73.9 - PERIPHERAL VASCULAR DISEASE, UNSPECIFIED Assessment/Plan RLE claudication 1. For right lower ext angiogram today
[2017-11-08] MEDS ORDERED: methylPREDNISolone NA SUCC 125 MG/2 ML VIAL IVPUSH ONE (14:08)
[2017-11-08] MEDS ORDERED: methylPREDNISolone NA SUCC 125 MG/2 ML VIAL ONE (14:11)
[2017-11-08] MEDS ORDERED: oxyCODONE HCL 5 MG TABLET ONE (14:50)
[2017-11-08 15:21] VITALS: TEMP 973.8
[2017-11-08 15:40] VITALS: PULSE 76
--- NOTE | 2017-11-08 15:44 | OP ---
DATE OF OPERATION: 11/08/2017 PREOPERATIVE DIAGNOSIS: Right lower extremity claudication. POSTOPERATIVE DIAGNOSIS: Right lower extremity claudication. PROCEDURE: Aortogram, right lower extremity angiogram, right superficial femoral artery angioplasty with right superficial femoral artery stent placement. SURGEON: Gabriel Wilder DO ANESTHESIA: Fractional. BLOOD LOSS: 50 mL The patient is a 57-year-old female who has right lower extremity claudication, less than 1 block. She had an ultrasound performed preoperatively showing that the SFA is occluded from its origin. It was decided that she would need an angiogram. Patient was consented for the procedure, understanding all risks, benefits, and alternatives, and was then taken to the operating room. DESCRIPTION OF PROCEDURE: Once in the operating room, she was laid on the operating table in supine manner, and the areas of the right and left groin were prepped and draped in a sterile surgical manner. We then went ahead and injected 10 mL of lidocaine 1% over the left common femoral artery. We then went ahead and took our micropuncture needle and punctured the left common femoral artery. Micropuncture wire was inserted. Micropuncture sheath was inserted, and a traditional 5-Mongolian sheath was inserted. A 0.035 floppy guidewire was then inserted into the aorta, followed by an Omni Flush catheter. We then shot an aortogram via hand injection, showing that the aorta and the iliac arteries were without any disease. We then went ahead and used our wire, went up and over to the right common femoral artery and Omni Flush catheter followed. We then shot an angiogram of the right lower extremity, showing that the common femoral artery and the profunda were patent, but the SFA had a nub and was then occluded, then came back above the knee. Patient had 2-vessel runoff into the foot, PT and DP. At this point, we placed our 0.035 stiff guidewire down into the proximal SFA, moved our Omni Flush catheter, placed a 6 x 45 Crossover sheath. Next, 5000 units of IV heparin were administered to the patient. We then using a Quick-Cross catheter, we were able to selectively cross the occlusion in the SFA and get down to above the knee, where we were able to get back into the [place] vessel. We then went ahead and placed a wire into the AT. We then went ahead and used a 5 x 200 balloon and performed angioplasty of the entire occluded SFA. We then went ahead and used a 6 x 100 and a 6 x 170 LifeStent and placed the stents into the occluded SFA. We then went ahead and then ballooned that using a 5 x 200 balloon. Completion angiogram now showed that the SFA was completely patent. Good brisk flow going on down into the foot, filling the DP and PT, and the patient had a good plantar arch. At this point, we brought our sheath up and over. StarClose device was successfully deployed in the left common femoral artery. Pressure was held for 5 minutes. After which, there was no more bleeding. Area was wet and dried, and Dermabond was placed. The patient tolerated the procedure with no complication. Patient transferred to the PACU in stable condition. GABRIEL WILDER DO [id number]
[2017-11-08] MEDS ORDERED: diphenhydrAMINE HCL 25 MG CAPSULE (FP) PO ONE (16:00)
[2017-11-08 16:24] VITALS: BP 134/78
== END 2017-11-08 16:20 | disposition home or self-care (01) ==
LOC: JASU-SURG 09:34
PROVIDERS: ATTEND Surgery Vascular Surgery
PROC: 047K3DZ Dilation of Right Femoral Artery with Intraluminal Device, Percutaneous Approach (ICD-10-PCS; principal; 2017-11-08 11:00)
DX: I70.211 Atherosclerosis of native arteries of extremities with intermittent claudication, right leg (principal); E11.9 Type 2 diabetes mellitus without complications; I10 Essential (primary) hypertension; Z21 Asymptomatic human immunodeficiency virus [HIV] infection status; J45.909 Unspecified asthma, uncomplicated; E78.5 Hyperlipidemia, unspecified
CPT/HCPCS: 37226; C1877; 36415; 76000-TC-FY; 85610; 94760; J1644

== ENCOUNTER 2017-11-14 12:51 | Day surgery (SDC) | payer OTHER ==
[2017-11-12 15:09] VITALS: BMI 28.3
[~2017-11-14 12:51] MED LIST changes: +HEPARIN NA (PORCINE) 5,000 UNITS/ML 1ML VIAL SQ ONE
[2017-11-14] MEDS ORDERED: LIDOCAINE HCL 1%, 10 MG/ML (20ML VIAL) INF ONE (14:39)
[2017-11-14] MEDS ORDERED: HEPARIN NA (PORCINE) 5,000 UNITS/ML 1ML VIAL SQ ONE (14:42)
--- NOTE | 2017-11-14 15:41 | OP ---
Operative Note - Note: Operative Date: 11/14/17 Pre-Operative Diagnosis: RLE claudication Operation: Right lower extremity angiogram, SFA DCB angioplasty Findings: stents closed Post-Operative Diagnosis: Same as Pre-op Surgeon: Gabriel Guzmán Anesthesia: Fractional Estimated Blood Loss (mls): 50 Operative Report Dictated: Yes
--- NOTE | 2017-11-14 15:42 | HP ---
Admitting History and Physical - Admission Chief Complaint: RLE claudication. S/p stent placement last week. US yest showed stents are closed. Limitations to Obtaining History: No Limitations - Past Medical History Cardiovascular: Yes: HTN, Hyperlipdemia Pulmonary: Yes: Asthma Hepatobiliary: Yes: Cholelithiasis ...LMP: 09/30/09 Infectious Disease: Yes: HIV Endocrine: Yes: Diabetes Mellitus - Past Surgical History Past Surgical History: Yes: Cholecystectomy - Smoking History Smoking history: Current every day smoker Have you smoked in the past 12 months: Yes Aproximately how many cigarettes per day: 5 If you are a former smoker, when did you quit?: 08/2017 - Alcohol/Substance Use Hx Alcohol Use: No - Social History ADL: Independent History of Recent Travel: No Home Medications - Allergies Allergies/Adverse Reactions: Allergies Allergy/AdvReac Type Severity Reaction Status Date / Time Fish Containing Products Allergy Verified 11/14/17 13:19 - Home Medications Home Medications: Ambulatory Orders Gabapentin [Neurontin] 600 mg PO BID 07/06/16 Magnesium 200 mg PO DAILY PRN 07/06/16 Pravastatin Sodium [Pravachol -] 40 mg PO HS 07/09/17 Dolutegravir Sodium [Tivicay] 50 mg PO DAILY #30 tablet 08/08/17 Emtricitabine/Tenofov Alafenam [Descovy 200-25 mg Tablet (Nf)] 1 each PO HS #30 tablet 08/08/17 Lisinopril 5 mg PO HS #30 tablet 08/08/17 Becaplermin [Regranex] 15 gm TP DAILY #1 gel..gram. 08/10/17 Albuterol Sulfate Inhaler - [Ventolin HFA Inhaler -] 1 - 2 inh PO Q6H PRN #1 inhaler 08/15/17 Lactobac 40/Bifido 3/S.thermop [Cvs Probiotic 100 Livan Cell Cap] 1 each PO DAILY #10 capsule 10/25/17 Rivaroxaban [Xarelto -] 20 mg PO DAILY #30 tablet 10/25/17 Oxycodone HCl/Acetaminophen [Endocet 5-325 Tablet] 1 each PO QID #60 tablet MDD 4 11/12/17 Bictegrav/Emtricit/Tenofov Ala [Biktarvy 50-200-25 mg Tablet] 1 each PO DAILY # 30 tablet 11/14/17 Escitalopram Oxalate [Lexapro -] 20 mg PO DAILY #30 tablet 11/14/17 Mirtazapine [Remeron -] 30 tablet PO HS 30 Days #30 tablet MDD one tablet Zolpidem Tartrate [Ambien] 5 mg PO HS #30 tablet MDD 1 11/14/17 Family Disease History - Family Disease History Family Disease History: Heart Disease: Grandparent, Father Review of Systems - Review of Systems Constitutional: reports: No Symptoms Eyes: reports: No Symptoms HENT: reports: No Symptoms Neck: reports: No Symptoms Cardiovascular: reports: No Symptoms Respiratory: reports: No Symptoms Gastrointestinal: reports: No Symptoms Genitourinary: reports: No Symptoms Breasts: reports: No Symptoms Reported Musculoskeletal: reports: No Symptoms Integumentary: reports: No Symptoms Neurological: reports: No Symptoms Endocrine: reports: No Symptoms Hematology/Lymphatic: reports: No Symptoms Psychiatric: reports: No Symptoms Physical Examination Vital Signs: Vital Signs Temperature 98.4 F 11/14/17 13:00 Pulse Rate 99 H 11/14/17 13:00 Respiratory Rate 16 11/14/17 13:00 Blood Pressure 114/66 11/14/17 13:00 O2 Sat by Pulse Oximetry (%) 99 11/14/17 13:37 Constitutional: Yes: Well Nourished, No Distress, Calm Eyes: Yes: WNL, Conjunctiva Clear, EOM Intact HENT: Yes: WNL, Atraumatic, Normocephalic Neck: Yes: WNL, Supple, Trachea Midline Cardiovascular: Yes: WNL, Regular Rate and Rhythm Respiratory: Yes: WNL, Regular, CTA Bilaterally Gastrointestinal: Yes: WNL, Normal Bowel Sounds Musculoskeletal: Yes: WNL Extremities: Yes: WNL Edema: No Integumentary: Yes: WNL Neurological: Yes: WNL, Alert, Oriented ...Motor Strength: WNL Psychiatric: Yes: WNL Problem List - Problems (1) Claudication Code(s): I73.9 - PERIPHERAL VASCULAR DISEASE, UNSPECIFIED Assessment/Plan RLE claudication 1. For angiogram today
[2017-11-14] MEDS ORDERED: oxyCODONE HCL 5 MG TABLET PO PRN (15:45)
[2017-11-14] MEDS ORDERED: methylPREDNISolone NA SUCC 125 MG/2 ML VIAL IVPUSH ONE (15:45)
[2017-11-14] MEDS ORDERED: LACTATED RINGERS SOLUTION 1,000 ML IV SCH (15:45)
[2017-11-14] MEDS ORDERED: ONDANSETRON 4 MG/2 ML VIAL IVPUSH PRN (15:45)
[2017-11-14] MEDS ORDERED: PROMETHAZINE HCL 25 MG/1 ML VIAL IVPB PRN (15:53)
[2017-11-14] MEDS ORDERED: methylPREDNISolone NA SUCC 125 MG/2 ML VIAL ONE (16:12)
[2017-11-14] MEDS ORDERED: oxyCODONE HCL 5 MG TABLET ONE (17:25)
--- NOTE | 2017-11-14 18:42 | OP ---
DATE OF OPERATION: 11/14/2017 PREOPERATIVE DIAGNOSIS: Right lower extremity claudication. POSTOPERATIVE DIAGNOSIS: Right lower extremity claudication. PROCEDURE: Right lower extremity angiogram, right superficial femoral artery drug-coated balloon angioplasty. SURGEON: Gabriel Wilder DO ANESTHESIA: Fractional. BLOOD LOSS: 50 mL. INDICATIONS: The patient is a 57-year-old female that had angioplasty with stent placement for SFA occlusion last week. She then started to develop some pain and claudication symptoms again and came into the office the other day. We did an ultrasound in the office showing that the SFA stents were closed. At this point, it was decided that she would need a repeat angiogram. DESCRIPTION OF PROCEDURE: The patient came to the hospital through Ambulatory Surgery. Patient was consented for the procedure, understanding all risks, benefits, alternatives and taken to the operating room. Once in the operating room, she was placed on the operating table in the supine position. The area of the right and left groin were prepped and draped in the sterile surgical manner. We then went ahead and injected 10 mL of lidocaine 1% over the left common femoral artery. We then used a micropuncture needle to puncture the left common femoral artery. A micropuncture wire was inserted and a traditional 5-Slovak sheath was inserted. We then placed a 0.035 floppy guidewire up into the aorta followed by an Omni Flush catheter. We then went ahead and took our wire and went up and over to the right common femoral artery and the Omni Flush catheter followed. We then shot an angiogram of the right lower extremity showing that the common femoral artery and the profunda were patent, but the SFA at its origin was occluded and the stents were not filling with any contrast. Beyond the stent in the distal SFA, the popliteal artery was patent and patient had 2-vessel runoff into the foot. At this point, we placed a stiff guidewire into the profunda. We removed the Omni Flush catheter and placed a 6 x 45 crossover sheath, and 5000 units of IV heparin were administered to the patient. We then placed our destination sheath into the proximal SFA and we were able to use a 1.35 Quick-Cross and were able to selectively cannulate into the SFA and get the wire down into the mcgrath popliteal artery. We then went ahead and used a 6 x 200 balloon and performed angioplasty of the entire stent. Completion angiogram showed that there was still some contrast holding up at the proximal stent. At this point, we used a 6 x 150 drug-coated balloon by [email or web address] and performed angioplasty of the proximal stent. We then shot a completion angiogram showing that the proximal stent was patent, but there was still some contrast hanging up at the distal stent. We then used a 6 x 6 Lutonix drug-coated balloon and performed angioplasty of the distal stent. Completion angiogram now showed that the stents were all patent. There was good brisk flow into the foot. There was 2-vessel runoff with a palpable DP pulse. At this point, we brought our sheath up and over and out. StarClose device was successfully deployed in the left common femoral artery. Pressure was held for 5 minutes and there was no more bleeding. Areas were then dried and Dermabond was placed. Patient tolerated the procedure with no complications. Patient was transferred to the PACU in stable condition. GABRIEL WILDER DO [id number]
[2017-11-14 19:09] VITALS: BP 142/85; PULSE 88; TEMP 99.4
== END 2017-11-14 19:00 | disposition home or self-care (01) ==
LOC: JASU-SURG 12:51
PROVIDERS: ATTEND Surgery Vascular Surgery
PROC: 047K341 Dilation of Right Femoral Artery with Drug-eluting Intraluminal Device, using Drug-Coated Balloon, Percutaneous Approach (ICD-10-PCS; principal; 2017-11-14 14:00)
DX: I70.211 Atherosclerosis of native arteries of extremities with intermittent claudication, right leg (principal)
CPT/HCPCS: 37226; C1874; C2623; 76000-TC-FY; 82962; 94760; J1644

== ENCOUNTER 2017-11-20 14:51 | Emergency (ER) | payer OTHER ==
[2017-11-20 14:58] VITALS: TEMP 98.3; BMI 26.4
--- NOTE | 2017-11-20 15:43 | PDOC ---
Attending Attestation - Resident Resident Name: Yony Young - ED Attending Attestation I have performed the following: I have examined & evaluated the patient, The case was reviewed & discussed with the resident, I agree w/resident's findings & plan, Exceptions are as noted - HPI HPI: 11/20/17 17:18 agree with residents note - Physicial Exam PE: 11/20/17 17:18 Vitals: Triage Vital signs reviewed General Appearance: no acute distress, well nourished well developed, Head: Atraumatic, Cardiac: Regular rate and rhythym, no murmurs, no rubs, no gallops, Lungs: Clear to auscultation bilateral, good air movement bilaterally, Abdomen: Soft, non distended, normal bowel sounds, non tender to palpation Extremities: Full range of motion to all extremities, no cyanosis, clubbing, or edema Skin: Warm and dry, no rashes or lesions, Neuro: AOX3; Cranial Nerves 2-12 grossly intact, Strength intact to all extremities, Sensation intact to all extremities,gait normal Psych: normal mood, normal affect - Medical Decision Making 57 years old severe peripheral vascular disease with 2 stents to right lower extremity this past week was in hyperbaric therapy today developed lightheadedness and dizziness now with low blood pressure. Patient complaining of minor back discomfort blood pressure improving with IV fluids Dr. Sarmiento to follow-up labs reassess patient CTA with runoff
[2017-11-20] MEDS ORDERED: SODIUM CHLORIDE 0.9% 1000 ML INFUS.BAG IV STA (16:20)
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
[2017-11-20 17:28] LABS: BASO % 0.5 % (0-2.0); EOS % 1.1 % (0-4.5); HEMATOCRIT 36.1 % (32.4-45.2); HEMOGLOBIN 11.7 GM/dL (10.7-15.3); LYMPH % 34.3 % (8-40); MCH 25.3 pg (25.7-33.7); MCHC 32.3 g/dl (32.0-36.0); MEAN CELL VOLUME 78.3 fl (80-96); MEAN PLT VOLUME 8.7 fl (7.5-11.1); MONO % 5.9 % (3.8-10.2); NEUT % 58.2 % (42.8-82.8); PLATELET COUNT 286 K/MM3 (134-434); RBC 4.61 M/mm3 (3.60-5.2); RDW 17.7 % (11.6-15.6); WHITE BLOOD COUNT 10.8 K/mm3 (4.0-10.0)
[2017-11-20 17:56] LABS: ANION GAP 5 (8-16); BLOOD UREA NITROGEN 16 mg/dL (7-18); CALCIUM 8.8 mg/dL (8.5-10.1); CHLORIDE 101 mmol/L (98-107); CO2 30 mmol/L (21-32); CREATININE 1.1 mg/dL (0.55-1.02); GLUCOSE,RANDOM 63 mg/dL (74-106); SGPT/ALT 17 U/L (12-78); SODIUM 136 mmol/L (136-145)
[2017-11-20 18:00] LABS: ALK PHOS 144 U/L (45-117); BILIRUBIN,TOTAL 0.3 mg/dL (0.2-1.0); TOT PROT 7.2 g/dl (6.4-8.2)
[2017-11-20 18:12] LABS: POTASSIUM 4.5 mmol/L (3.5-5.1); SGOT/AST 19 U/L (15-37)
[2017-11-20 18:52] LABS: URINE APPEARANCE CLEAR; URINE BILIRUBIN NEGATIVE (<2.0 mg/dL); URINE COLOR YELLOW; URINE GLUCOSE (UA) NEGATIVE (NEGATIVE); URINE KETONE NEGATIVE (NEGATIVE); URINE LEUK ESTERASE NEGATIVE (NEGATIVE); URINE NITRITE NEGATIVE (NEGATIVE); URINE PROTEIN NEGATIVE (NEGATIVE); URINE UROBILINOGEN NEGATIVE mg/dL (0.2-1.0)
[2017-11-20 20:00] LABS: INR 1.89 (0.82-1.09); PROTHROMBIN TIME (PATIENT) 21.4 SEC (9.7-13.0)
[2017-11-20 20:03] LABS: ACTIVATED PTT 31.3 SECONDS (26.9-34.4)
[2017-11-20 21:56] VITALS: BP 134/79; PULSE 86
--- NOTE | 2017-11-21 10:18 | EKG ---
Test Reason : Blood Pressure : / mmHG Vent. Rate : 085 BPM Atrial Rate : 085 BPM P-R Int : 148 ms QRS Dur : 084 ms QT Int : 380 ms P-R-T Axes : 059 070 052 degrees QTc Int : 452 ms NORMAL SINUS RHYTHM NORMAL ECG WHEN COMPARED WITH ECG OF 25-SEP-2017 16:39, NO SIGNIFICANT CHANGE WAS FOUND Confirmed by REUBEN SNYDER MD ([id number]) on 11/21/2017 10:17:45 AM Referred By: Confirmed By:REUBEN SNYDER MD
== END 2017-11-20 21:56 | disposition home or self-care (01) ==
LOC: JER 14:51
DX: I95.89 Other hypotension (principal); I73.9 Peripheral vascular disease, unspecified; T79.A22A Traumatic compartment syndrome of left lower extremity, initial encounter; X58.XXXA Exposure to other specified factors, initial encounter; I25.10 Atherosclerotic heart disease of native coronary artery without angina pectoris; I10 Essential (primary) hypertension; Z95.5 Presence of coronary angioplasty implant and graft; Z21 Asymptomatic human immunodeficiency virus [HIV] infection status; F41.9 Anxiety disorder, unspecified; Z87.442 Personal history of urinary calculi
CPT/HCPCS: 11042; 36415; 71045-TC-FY; 71275-TC; 80053; 81003; 82550; 84484; 85025; 85610; 85730; 87040; 87086; 93005; 93010; 99284-25; G0463-25; J7030

== ENCOUNTER 2018-03-14 08:50 | Day surgery (SDC) | payer OTHER ==
[2018-03-13 17:25] VITALS: BMI 31.7
[2018-03-14] MEDS ORDERED: LIDOCAINE HCL 2% (20ML MULTI-DOSE VIAL) NR ONE (09:10)
[2018-03-14] MEDS ORDERED: HEPARIN NA (PORCINE) 5,000 UNITS/ML 1ML VIAL ONE (09:10)
[2018-03-14] MEDS ORDERED: ceFAZolin SODIUM 1 GM VIAL IVPB ONE (09:55)
[2018-03-14] MEDS ORDERED: LIDOCAINE HCL 2% (50ML VIAL) INF ONE ×2 (10:06)
[2018-03-14] MEDS ORDERED: RIVAROXABAN 20 MG TABLET PO ONE (11:38)
--- NOTE | 2018-03-14 11:38 | OP ---
Operative Note - Note: Operative Date: 03/14/18 Pre-Operative Diagnosis: RLE rest pain Operation: Aortogram, RLE angiogram, SFA orbital atherectomy, SFA DCB angioplasty, SFA stent placement Post-Operative Diagnosis: Same as Pre-op Surgeon: Gabriel Guzmán Anesthesia: Fractional Estimated Blood Loss (mls): 50 Operative Report Dictated: Yes
--- NOTE | 2018-03-14 11:50 | HP ---
Admitting History and Physical - Admission Chief Complaint: RLE claudication Limitations to Obtaining History: No Limitations - Past Medical History Cardiovascular: Yes: HTN, Hyperlipdemia Pulmonary: Yes: Asthma Hepatobiliary: Yes: Cholelithiasis ...LMP: 09/30/09 ...: No Infectious Disease: Yes: HIV Endocrine: Yes: Diabetes Mellitus - Past Surgical History Past Surgical History: Yes: Cholecystectomy - Smoking History Smoking history: Current every day smoker Have you smoked in the past 12 months: Yes Aproximately how many cigarettes per day: 2 If you are a former smoker, when did you quit?: October 2017 - Alcohol/Substance Use Hx Alcohol Use: No - Social History ADL: Independent History of Recent Travel: No Home Medications - Allergies Allergies/Adverse Reactions: Allergies Allergy/AdvReac Type Severity Reaction Status Date / Time Fish Containing Products Allergy Verified 03/13/18 17:03 - Home Medications Home Medications: Ambulatory Orders Pravastatin Sodium [Pravachol -] 40 mg PO HS 07/09/17 Albuterol Sulfate Inhaler - [Ventolin HFA Inhaler -] 1 - 2 inh PO Q6H PRN #1 inhaler 08/15/17 Rivaroxaban [Xarelto -] 20 mg PO DAILY #30 tablet 10/25/17 Escitalopram Oxalate [Lexapro -] 20 mg PO DAILY #30 tablet 11/14/17 Mirtazapine [Remeron -] 30 tablet PO HS 30 Days #30 tablet MDD one tablet Gabapentin 600 mg PO BID #120 tablet MDD 2 11/23/17 Lisinopril 5 mg PO HS #30 tablet 11/27/17 Insulin Glargine,Hum.rec.anlog [Toujeo Solostar] 35 unit SQ HS 12/19/17 Insulin Lispro [Humalog] 15 unit SQ AC 12/19/17 Zolpidem Tartrate [Ambien] 10 mg PO HS #30 tablet MDD 1 12/19/17 Bictegrav/Emtricit/Tenofov Ala [Biktarvy 50-200-25 mg Tablet] 1 each PO DAILY # 30 tablet 12/24/17 Aspirin [ASA -] 81 mg PO DAILY 02/19/18 clonazePAM [Klonopin -] 0.5 mg PO TID PRN 02/19/18 Oxycodone HCl/Acetaminophen [Percocet 10-325 mg Tablet] 1 each PO QID #120 tablet MDD 4 03/11/18 Family Disease History - Family Disease History Family Disease History: Diabetes: Mother (living, ), Brother (one - healthy), Heart Disease: Grandparent, Father (living, ), Mother, Respiratory: Mother, Other: Father, Mother, Brother, Sister (one - living - healthy), Son (two - adults -healthy), Daughter (one -adult -healthy) Review of Systems - Review of Systems Constitutional: reports: No Symptoms Eyes: reports: No Symptoms HENT: reports: No Symptoms Neck: reports: No Symptoms Cardiovascular: reports: No Symptoms Respiratory: reports: No Symptoms Gastrointestinal: reports: No Symptoms Genitourinary: reports: No Symptoms Musculoskeletal: reports: No Symptoms Integumentary: reports: No Symptoms Neurological: reports: No Symptoms Endocrine: reports: No Symptoms Hematology/Lymphatic: reports: No Symptoms Psychiatric: reports: No Symptoms Physical Examination Vital Signs: Vital Signs Temperature 98.1 F 03/14/18 09:15 Pulse Rate 100 H 03/14/18 09:15 Respiratory Rate 18 03/14/18 09:15 Blood Pressure 106/73 03/14/18 09:15 O2 Sat by Pulse Oximetry (%) 98 03/14/18 09:17 Constitutional: Yes: Well Nourished, No Distress, Calm Eyes: Yes: WNL, Conjunctiva Clear, EOM Intact HENT: Yes: WNL, Atraumatic, Normocephalic Neck: Yes: WNL, Supple, Trachea Midline Cardiovascular: Yes: WNL, Regular Rate and Rhythm Respiratory: Yes: WNL, Regular, CTA Bilaterally Gastrointestinal: Yes: WNL, Normal Bowel Sounds Musculoskeletal: Yes: WNL Extremities: Yes: WNL Edema: No Integumentary: Yes: WNL Neurological: Yes: WNL, Alert, Oriented ...Motor Strength: WNL Psychiatric: Yes: WNL Problem List - Problems (1) Claudication of right lower extremity Assessment/Plan: RLE claudication 1. For angiogram today Code(s): I73.9 - PERIPHERAL VASCULAR DISEASE, UNSPECIFIED (2) Intermittent claudication of right lower extremity due to atherosclerosis Code(s): I70.211 - ATHSCL TOHONO [place] ARTERIES OF EXTRM W INTRMT JESSICA, RIGHT LEG (3) Right leg claudication Code(s): I73.9 - PERIPHERAL VASCULAR DISEASE, UNSPECIFIED
[2018-03-14] MEDS ORDERED: oxyCODONE HCL 5 MG TABLET PO PRN ×2 (13:33)
[2018-03-14] MEDS ORDERED: oxyCODONE HCL 5 MG TABLET PO ONE (15:12)
[2018-03-14 16:32] VITALS: BP 102/52; PULSE 81; TEMP 81
--- NOTE | 2018-04-03 20:02 | OP ---
DATE OF OPERATION: 03/14/2018 PREOPERATIVE DIAGNOSIS: Right lower extremity rest pain. POSTOPERATIVE DIAGNOSIS: Right lower extremity rest pain. PROCEDURE: Aortogram, right lower extremity angiogram, superficial femoral artery orbital atherectomy, superficial femoral artery drug-coated balloon angioplasty, superficial femoral artery stent placement. SURGEON: Gabriel Wilder DO ANESTHESIA: Fractional. BLOOD LOSS: 50 mL. The patient is a 58-year-old female who comes in with right lower extremity rest pain, to the clinic. It was decided that she must have SFA occlusion again. She has had SFA stents placed in the past. However, she is an uncontrolled diabetic and continues to smoke a pack of cigarettes a day. She had a preoperative ultrasound performed, showing that her SFA stents were occluded. It was decided that she would need to come in for a diagnostic angiogram. Patient came in through ambulatory surgery. Patient was consented for the procedure, understanding all risks, benefits, alternatives. She was then taken to the operating room. Once in the operating room, she was laid down on the operating table in supine manner. The area of the left and right groin were prepped and draped in sterile surgical manner. We then injected 10 mL of lidocaine 1% over the left common femoral artery. We then went ahead and, using our micropuncture needle, we punctured the left common femoral artery. Micropuncture wire was inserted and micropuncture sheath was inserted and a traditional 5-[place] sheath was inserted. We then inserted a 0.035 floppy guidewire up into the aorta followed by Omni Flush catheter. We then shot an aortogram via hand injection, showing that the aorta and iliac arteries were without any disease. We then used our 0.035 floppy guidewire, went up and over to the right common femoral artery, and our Omni Flush catheter followed. We then shot an angiogram of the right lower extremity, showing the common femoral artery and the profunda were patent. The SFA was occluded from its origin. The stents were occluded all the way down to the mid to distal SFA, and beyond the stents, there was significant disease, and the popliteal artery behind the knee was patent and patient had 2-vessel runoff into the foot. At this point, we placed a 0.035 stiff guidewire into the profunda. We removed our Omni Flush catheter and placed a 6 x 45 crossover sheath and 5000 units of IV heparin was administered to the patient. We then went ahead and, using a Quick-Cross catheter, selectively cannulated into the stent and got our wire down into the distal popliteal artery and into the tibial artery. We then exchanged our wire. We then placed a Quick-Cross catheter and exchanged our wire for a FiberWire. We then went ahead and used a 5 x 200 balloon and performed angioplasty of the entire stent from its proximal to distal portion. We then went ahead and took a CSI orbital atherectomy catheter and performed orbital atherectomy on low and medium in the distal SFA beyond the stent. Once that was performed, we shot a completion angiogram, showing that the stents were semi-patent and the distal SFA was also now patent. At this point, we went ahead and used a 6 x 200 balloon and performed angioplasty of the distal SFA and the entire stent. We then shot a completion angiogram, showing that the distal SFA beyond the stent is still diseased with recoil, and we went ahead and placed a 6 x 6 LifeStent in that area, which we ballooned in place using a 6 x 6 Ultraverse balloon. Completion angiogram now showed that the stents were patent, there was good flow through the stents now that the distal outflow was open, the distal stent was open, and there was 2-vessel runoff into the foot. At this point, we brought our sheath up and over. A StarClose device was successfully deployed in the left common femoral artery. Pressure was held for 5 minutes. After there was no more bleeding, the area was wet and dried and Dermabond was placed. Patient tolerated this procedure with no complication. Patient transferred to PACU in stable condition. GABRIEL WILDER DO [id number]
== END 2018-03-14 16:00 | disposition home or self-care (01) ==
LOC: JASU-SURG 08:50
PROVIDERS: ATTEND Surgery Vascular Surgery
PROC: 047K3D1 Dilation of Right Femoral Artery with Intraluminal Device, using Drug-Coated Balloon, Percutaneous Approach (ICD-10-PCS; principal; 2018-03-14 10:00)
DX: I70.221 Atherosclerosis of native arteries of extremities with rest pain, right leg (principal); E11.65 Type 2 diabetes mellitus with hyperglycemia; F17.210 Nicotine dependence, cigarettes, uncomplicated
CPT/HCPCS: 37227; C1877; C2623; 76000-TC-FY; 82962; 94760; J1644

== ENCOUNTER 2018-03-18 09:50 | Emergency (ER) | payer OTHER ==
[2018-03-18 10:00] VITALS: TEMP 98.7; BMI 31.1
[2018-03-18] MEDS ORDERED: HEMOQUE CONTROL SOLUTION ONE (10:42)
--- NOTE | 2018-03-18 11:02 | PDOC ---
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 She states that she slipped and fell in her bathtub two days ago landing on her hip. She describes the pain as worse along her lateral right thigh. Endorses feeling dizzy after the fall. Denies LOC, neck pain. Patient was sent to ED by Dr Guzmán from clinic. Past History - Past Medical History Allergies/Adverse Reactions: Allergies Allergy/AdvReac Type Severity Reaction Status Date / Time Fish Containing Products Allergy Verified 03/18/18 09:53 Home Medications: Ambulatory Orders Pravastatin Sodium [Pravachol -] 40 mg PO HS 07/09/17 Albuterol Sulfate Inhaler - [Ventolin HFA Inhaler -] 1 - 2 inh PO Q6H PRN #1 inhaler 08/15/17 Rivaroxaban [Xarelto -] 20 mg PO DAILY #30 tablet 10/25/17 Escitalopram Oxalate [Lexapro -] 20 mg PO DAILY #30 tablet 11/14/17 Mirtazapine [Remeron -] 30 tablet PO HS 30 Days #30 tablet MDD one tablet Gabapentin 600 mg PO BID #120 tablet MDD 2 11/23/17 Lisinopril 5 mg PO HS #30 tablet 11/27/17 Insulin Glargine,Hum.rec.anlog [Toujeo Solostar] 35 unit SQ HS 12/19/17 Insulin Lispro [Humalog] 15 unit SQ AC 12/19/17 Zolpidem Tartrate [Ambien] 10 mg PO HS #30 tablet MDD 1 12/19/17 Bictegrav/Emtricit/Tenofov Ala [Biktarvy 50-200-25 mg Tablet] 1 each PO DAILY # 30 tablet 12/24/17 Aspirin [ASA -] 81 mg PO DAILY 02/19/18 clonazePAM [Klonopin -] 0.5 mg PO TID PRN 02/19/18 Oxycodone HCl/Acetaminophen [Percocet 10-325 mg Tablet] 1 each PO QID #120 tablet MDD 4 03/11/18 Anemia: Yes Asthma: Yes Cancer: No Cardiac Disorders: Yes (2 stents, [place]) CVA: No COPD: Yes CHF: No Dementia: No Diabetes: Yes (on insulin - poor control) GI Disorders: No Disorders: Yes (kidney stones) HTN: Yes Hypercholesterolemia: Yes Kidney Stones: Yes Liver Disease: No Psychiatric Problems: Yes (ANXIETY.) Seizures: No Thyroid Disease: No - Surgical History Abdominal Surgery: No Appendectomy: No Cardiac Surgery: Yes (2 stents) Cholecystectomy: Yes Lung Surgery: No Neurologic Surgery: No Orthopedic Surgery: Yes (right wrist,right ankle,left knee replacement,right elbow 2009; ) - Immunization History Immunization Up to Date: Yes - Suicide/Smoking/Psychosocial Hx Smoking History: Former smoker Have you smoked in the past 12 months: No Number of Cigarettes Smoked Daily: 40 If you are a former smoker, when did you quit?: 03/19 Cigars Per Day: 0 Information on smoking cessation initiated: No 'Breaking Loose' booklet given: 03/14/18 Hx Alcohol Use: No Drug/Substance Use Hx: No Substance Use Type: None Hx Substance Use Treatment: No Review of Systems - Review of Systems Comments:: 03/18/18 11:02 GENERAL/CONSTITUTIONAL: No fever or chills. No weakness. HEAD, EYES, EARS, NOSE AND THROAT: No change in vision. No ear pain or discharge. No sore throat. CARDIOVASCULAR: No chest pain or shortness of breath RESPIRATORY: No cough, wheezing, or hemoptysis. GASTROINTESTINAL: No nausea, vomiting, diarrhea or constipation. GENITOURINARY: No dysuria, frequency, or change in urination. MUSCULOSKELETAL: +right hip pain. No neck or back pain. SKIN: No rash NEUROLOGIC: No headache, +vertigo, no loss of consciousness, or change in strength/sensation. ENDOCRINE: No increased thirst. No abnormal weight change HEMATOLOGIC/LYMPHATIC: No anemia, easy bleeding, or history of blood clots. ALLERGIC/IMMUNOLOGIC: No hives or skin allergy. *Physical Exam - Vital Signs Last Vital Signs Temp Pulse Resp BP Pulse Ox 98.7 F 103 H 20 135/78 99 03/18/18 09:54 03/18/18 09:54 03/18/18 09:54 03/18/18 09:54 03/18/18 09:54 - Physical Exam Comments: 03/18/18 11:03 GENERAL: Awake, alert, and fully oriented, in no acute distress HEAD: No signs of trauma, normocephalic, atraumatic EYES: PERRLA, EOMI, sclera anicteric, conjunctiva clear ENT: Auricles normal inspection, hearing grossly normal, nares patent, oropharynx clear without exudates. Moist mucosa NECK: Normal ROM, supple, no lymphadenopathy, JVD, or masses, no midline tenderness R leg: Palpable distal pulses, pink, well-perfused foot, normal knee/foot ROM and sensation. Tender diffusely in proximal leg, worse in lateral thigh. No bruising visible. No deformity LUNGS: No distress, speaks full sentences, clear to auscultation bilaterally HEART: Regular rate and rhythm, normal S1 and S2, no murmurs, rubs or gallops, peripheral pulses normal and equal bilaterally. ABDOMEN: Soft, nontender, normoactive bowel sounds. No guarding, no rebound. No masses OTHER EXTREMITIES: Fasciotomy scar in left leg, Normal range of motion, no edema. No clubbing or cyanosis. NEUROLOGICAL: Cranial nerves II through XII grossly intact. Normal speech, no focal sensorimotor deficits SKIN: Warm, Dry, normal turgor, no rashes or lesions noted. ED Treatment Course - LABORATORY CBC & Chemistry Diagram: 03/18/18 10:51 03/18/18 10:51 - RADIOLOGY Radiology Studies Ordered: Category Date Time Status CHEST X-RAY PORTABLE* [RAD] Stat Radiology 03/18/18 10:39 Ordered HIP & PELVIS-RIGHT [RAD] Stat Radiology 03/18/18 10:47 Ordered Medical Decision Making - Medical Decision Making 03/18/18 11:05 Patient is 58F with history of L pop art stent complicated by fasciotomy, HIV, R SFA four days ago here today with right hip pain after a fall. Vital signs notable for tachycardia. Dr Guzmán contacted, who states that patient has greatly improved her vascular status in her right leg since the procedure and was normal this morning. Concern is focused for injury to bone, not SFA repair. Will workup as a possible syncope as well given complaint of dizziness. 03/18/18 13:57 EKG shows normal sinus rhythm with rate of 78. No st elevations/depressions. No significant t wave abnormalities. Normal axis. Normal intervals. CBC, CMP reassuring. Trop undetectable. CXR shows no acute cardiopulmonary process. X-ray shows no fracture. Patient ambulating without assistance. Will discharge. *DC/Admit/Observation/Transfer Diagnosis at time of Disposition: Fall - Discharge Dispostion Disposition: HOME Condition at time of disposition: Good Decision to Admit order: No - Referrals - Patient Instructions Printed Discharge Instructions: How to Prevent Falls Additional Instructions: Please return if you have any new, worsening or concerning symptoms. Please follow up with your primary care doctor this week. - Post Discharge Activity
[2018-03-18 11:03] LABS: BASO % 0.4 % (0-2.0); EOS % 0.7 % (0-4.5); HEMATOCRIT 33.1 % (32.4-45.2); HEMOGLOBIN 10.6 GM/dL (10.7-15.3); LYMPH % 13.6 % (8-40); MCH 25.4 pg (25.7-33.7); MCHC 31.9 g/dl (32.0-36.0); MEAN CELL VOLUME 79.7 fl (80-96); MONO % 5.2 % (3.8-10.2); NEUT % 80.1 % (42.8-82.8); PLATELET COUNT 161 K/MM3 (134-434); RBC 4.16 M/mm3 (3.60-5.2); RDW 15.7 % (11.6-15.6); WHITE BLOOD COUNT 9.5 K/mm3 (4.0-10.0)
[2018-03-18 11:15] LABS: INR 1.27 (0.83-1.09); PROTHROMBIN TIME (PATIENT) 14.4 SEC (9.7-13.0)
[2018-03-18 11:31] LABS: CHLORIDE 101 mmol/L (98-107); SODIUM 137 mmol/L (136-145)
[2018-03-18 11:41] LABS: ALBUMIN 2.7 g/dl (3.4-5.0); ALK PHOS 134 U/L (45-117); ANION GAP 11 MMOL/L (8-16); BILIRUBIN,TOTAL 0.5 mg/dL (0.2-1.0); BLOOD UREA NITROGEN 8 mg/dL (7-18); CALCIUM 8.6 mg/dL (8.5-10.1); CO2 25 mmol/L (21-32); GLUCOSE,RANDOM 283 mg/dL (74-106); MAGNESIUM 2.1 mg/dL (1.8-2.4); SGOT/AST 10 U/L (15-37); SGPT/ALT 11 U/L (13-61); TOT PROT 6.8 g/dl (6.4-8.2)
[2018-03-18 14:08] VITALS: BP 93/57; PULSE 81
--- NOTE | 2018-03-18 14:29 | EKG ---
Test Reason : Blood Pressure : / mmHG Vent. Rate : 078 BPM Atrial Rate : 078 BPM P-R Int : 156 ms QRS Dur : 094 ms QT Int : 368 ms P-R-T Axes : 050 063 044 degrees QTc Int : 419 ms NORMAL SINUS RHYTHM NORMAL ECG WHEN COMPARED WITH ECG OF 20-NOV-2017 14:54, NO SIGNIFICANT CHANGE WAS FOUND Confirmed by ANIA PRESTON MD ([id number]) on 03/18/2018 2:29:05 PM Referred By: Confirmed By:ANIA PRESTON MD
== END 2018-03-18 14:08 | disposition home or self-care (01) ==
LOC: JER 09:50
DX: M25.551 Pain in right hip (principal); W18.39XA Other fall on same level, initial encounter; Y93.E1 Activity, personal bathing and showering; Y92.002 Bathroom of unspecified non-institutional (private) residence as the place of occurrence of the external cause; Z95.828 Presence of other vascular implants and grafts; Z21 Asymptomatic human immunodeficiency virus [HIV] infection status
CPT/HCPCS: 36415; 71045-TC-FY; 73523-TC-FY; 80053; 82550; 82553; 83735; 84484; 85025; 85610; 93005; 93010; 99281-25; G0463-25

== ENCOUNTER 2018-03-21 04:59 | Day surgery (SDC) | payer OTHER ==
[2018-03-21] MEDS ORDERED: PROPOFOL 20 ML ONE ×3 (12:30)
[2018-03-21] MEDS ORDERED: MIDAZOLAM HCL 2 MG/2 ML SINGLE DOSE VIAL ONE ×2 (12:32)
[2018-03-21] MEDS ORDERED: LIDOCAINE HCL/PF 2% SDV 5ML VIAL ONE (12:39)
[2018-03-21] MEDS ORDERED: HEPARIN NA (PORCINE) 5,000 UNITS/ML 1ML VIAL ONE ×2 (12:40→13:32)
[2018-03-21] MEDS ORDERED: ceFAZolin SODIUM 1 GM VIAL IVPB ONE (13:00)
[2018-03-21] MEDS ORDERED: ceFAZolin SODIUM 1 GM VIAL ONE (13:12)
[2018-03-21] MEDS ORDERED: LIDOCAINE HCL 2% (50ML VIAL) INF ONE (13:13)
[2018-03-21] MEDS ORDERED: LIDOCAINE HCL 2% (50ML VIAL) NR ONE (13:13)
[2018-03-21] MEDS ORDERED: ONDANSETRON 4 MG/2 ML VIAL IVPUSH PRN (13:50)
[2018-03-21] MEDS ORDERED: PROMETHAZINE HCL 25 MG/1 ML VIAL IVPB PRN (13:50)
[2018-03-21] MEDS ORDERED: SODIUM CHLORIDE 1,000 ML IV SCH (14:00)
[2018-03-21] MEDS ORDERED: PROTAMINE SULFATE 50 MG/5 ML VIAL ONE (14:09)
--- NOTE | 2018-03-21 14:40 | HP ---
Admitting History and Physical - Admission Chief Complaint: Right lower ext claudication Limitations to Obtaining History: No Limitations - Past Medical History Cardiovascular: Yes: HTN, Hyperlipdemia Pulmonary: Yes: Asthma Hepatobiliary: Yes: Cholelithiasis ...LMP: 09/30/09 ...: No Infectious Disease: Yes: HIV Endocrine: Yes: Diabetes Mellitus - Past Surgical History Past Surgical History: Yes: Cholecystectomy - Smoking History Smoking history: Former smoker Have you smoked in the past 12 months: Yes Aproximately how many cigarettes per day: 2 If you are a former smoker, when did you quit?: 03/19 - Alcohol/Substance Use Hx Alcohol Use: No - Social History ADL: Independent History of Recent Travel: No Home Medications - Allergies Allergies/Adverse Reactions: Allergies Allergy/AdvReac Type Severity Reaction Status Date / Time Fish Containing Products Allergy Verified 03/18/18 09:53 - Home Medications Home Medications: Ambulatory Orders Pravastatin Sodium [Pravachol -] 40 mg PO HS 07/09/17 Albuterol Sulfate Inhaler - [Ventolin HFA Inhaler -] 1 - 2 inh PO Q6H PRN #1 inhaler 08/15/17 Rivaroxaban [Xarelto -] 20 mg PO DAILY #30 tablet 10/25/17 Escitalopram Oxalate [Lexapro -] 20 mg PO DAILY #30 tablet 11/14/17 Mirtazapine [Remeron -] 30 tablet PO HS 30 Days #30 tablet MDD one tablet Gabapentin 600 mg PO BID #120 tablet MDD 2 11/23/17 Lisinopril 5 mg PO HS #30 tablet 11/27/17 Insulin Glargine,Hum.rec.anlog [Toujeo Solostar] 35 unit SQ HS 12/19/17 Insulin Lispro [Humalog] 15 unit SQ AC 12/19/17 Zolpidem Tartrate [Ambien] 10 mg PO HS #30 tablet MDD 1 12/19/17 Bictegrav/Emtricit/Tenofov Ala [Biktarvy 50-200-25 mg Tablet] 1 each PO DAILY # 30 tablet 12/24/17 Aspirin [ASA -] 81 mg PO DAILY 02/19/18 clonazePAM [Klonopin -] 0.5 mg PO TID PRN 02/19/18 Oxycodone HCl/Acetaminophen [Percocet 10-325 mg Tablet] 1 each PO QID #120 tablet MDD 4 03/11/18 Family Disease History - Family Disease History Family Disease History: Diabetes: Mother (living, ), Brother (one - healthy), Heart Disease: Grandparent, Father (living, ), Mother, Respiratory: Mother, Other: Father, Mother, Brother, Sister (one - living - healthy), Son (two - adults -healthy), Daughter (one -adult -healthy) Review of Systems - Review of Systems Constitutional: reports: No Symptoms Eyes: reports: No Symptoms HENT: reports: No Symptoms Neck: reports: No Symptoms Cardiovascular: reports: No Symptoms Respiratory: reports: No Symptoms Gastrointestinal: reports: No Symptoms Musculoskeletal: reports: No Symptoms Integumentary: reports: No Symptoms Neurological: reports: No Symptoms Endocrine: reports: No Symptoms Hematology/Lymphatic: reports: No Symptoms Psychiatric: reports: No Symptoms Physical Examination Vital Signs: Vital Signs Temperature 98.3 F 03/21/18 10:15 Pulse Rate 92 H 03/21/18 10:15 Respiratory Rate 18 03/21/18 10:15 Blood Pressure 143/66 03/21/18 10:15 O2 Sat by Pulse Oximetry (%) 100 03/21/18 10:15 Constitutional: Yes: Well Nourished, No Distress, Calm Eyes: Yes: WNL, Conjunctiva Clear, EOM Intact HENT: Yes: WNL, Atraumatic, Normocephalic Neck: Yes: WNL, Supple, Trachea Midline Cardiovascular: Yes: WNL, Regular Rate and Rhythm Respiratory: Yes: WNL, Regular, CTA Bilaterally Gastrointestinal: Yes: WNL, Normal Bowel Sounds Musculoskeletal: Yes: WNL Extremities: Yes: WNL Edema: No Integumentary: Yes: WNL Neurological: Yes: WNL, Alert, Oriented ...Motor Strength: WNL Psychiatric: Yes: WNL Problem List - Problems (1) Atherosclerosis of right lower extremity with rest pain Assessment/Plan: Right lower ext claudication progressing to rest pain 1. For angiogram today. Code(s): I70.221 - ATHSCL [place] ARTERIES OF EXTREMITIES W REST PAIN, RIGHT LEG (2) Claudication of right lower extremity Code(s): I73.9 - PERIPHERAL VASCULAR DISEASE, UNSPECIFIED
--- NOTE | 2018-03-21 14:42 | OP ---
Operative Note - Note: Operative Date: 03/21/18 Operation: Aortogram, RLE angiogram, SFA angioplasty with stent placement. Post-Operative Diagnosis: Same as Pre-op Surgeon: Gabriel Guzmán Anesthesia: Fractional Estimated Blood Loss (mls): 50 Operative Report Dictated: Yes
[2018-03-21] MEDS ORDERED: oxyCODONE HCL 5 MG TABLET PO PRN (15:44)
[2018-03-21 15:51] VITALS: TEMP 98.1
[2018-03-21 16:36] VITALS: BP 149/78; PULSE 97
--- NOTE | 2018-04-03 19:45 | OP ---
DATE OF OPERATION: 03/21/2018 PREOPERATIVE DIAGNOSIS: Right lower extremity rest pain. POSTOPERATIVE DIAGNOSIS: Right lower extremity rest pain. PROCEDURE: Aortogram, right lower extremity angiogram, superficial femoral artery angioplasty with stent placement. SURGEON: Gabriel Wilder DO ANESTHESIA: Fractional. BLOOD LOSS: 50 mL The patient is a 58-year-old female who recently had an angioplasty with stent placement and atherectomy done on March 14. After the procedure, she felt great and we saw her 4 days later and she was complaining of some pain in her right lower extremity. Patient still is an uncontrolled diabetic and still has not stopped smoking. This time, this was confirmed by her fianc who came bedside and said that she continues to smoke. We got a preoperative ultrasound again showing that the SFA stents were now, indeed, occluded, and it was decided that she needs to go to the operating room for an angiogram so that we can map out a distal target so that we can start planning for a bypass procedure. She would be also set up a visit for her to Dr. Fritz who is her proc tech for cardiac clearance. Patient came in in to ambulatory surgery. Patient was consented for the procedure, understanding all risks, benefits, and alternatives, was then taken to the operating room. Once in the operating room, was laid on the operating table in supine manner, and the areas of the left and right groin were prepped and draped in a sterile surgical manner. We then went ahead and injected 10 mL of lidocaine 1% under ultrasound guidance over the left common femoral artery. We then used our micropuncture needle and punctured the left common femoral artery, and micropuncture wire was inserted. Micropuncture sheath was inserted, and a traditional 5-[place] sheath was inserted. We then placed a 0.035 floppy guidewire up into the aorta, followed by Omni Flush catheter. We then shot an aortogram via hand injection showing that the aorta and the iliac arteries were without any disease. We then used our 0.035 floppy guidewire and went up and over to the right common femoral artery, and our Omni Flush catheter followed. We then shot an angiogram of the right lower extremity showing that the common femoral artery and the profunda were patent, but the SFA stents were occluded again. Patient's popliteal artery reconstituted, and patient had 2-vessel runoff into the foot. At this point, we looked at our distal target, and patient would need a right below-knee popliteal bypass. We went ahead and then decided to see if we can open the stents and re-align them. We then placed our 0.035 floppy guidewire down into the SFA stents with a Quick-Cross catheter, and we got our wire down into the [place] tibial artery. At this point, we went ahead and used a 6 x 200 balloon and performed angioplasty of the stents from proximal to distal. On completion angiogram, it showed that the stents were patent, but the proximal origin had an 80% stenosis there. At this point, we went ahead and placed a 6 x 4 LifeStent at the proximal SFA near the junction and ballooned it in place using a 6 x 4 balloon. Completion angiogram now showed that there was good, brisk flow through the stents, and there was 2-vessel runoff into the foot. During the case, patient was administered 5000 units of IV heparin. Patient had a 6 x 45 crossover sheath that had been placed. The 6 x 45 crossover sheath was now removed, and a StarClose device was successfully deployed in the left common femoral artery. Pressure was held there for 5 minutes. After, there was no bleeding. Area was wet and dried. Patient then followed up a week later now, and patient has good palpable PT pulse in the foot. Patient has stopped smoking. Her sugars are still out of control, but she is going to an manager fire. Patient is on Xarelto for prior embolization from the heart. Currently, the patient is doing well. Patient is not having any claudication symptoms, with a palpable pulse, and for now, patient does not need a bypass procedure. We will continue to follow the patient with ultrasounds. GABRIEL WILDER DO [id number]
== END 2018-03-21 16:50 | disposition home or self-care (01) ==
LOC: JASU-SURG 04:59
PROVIDERS: ATTEND Surgery Vascular Surgery
PROC: 047K34Z Dilation of Right Femoral Artery with Drug-eluting Intraluminal Device, Percutaneous Approach (ICD-10-PCS; principal; 2018-03-21 12:00)
DX: I70.221 Atherosclerosis of native arteries of extremities with rest pain, right leg (principal); E11.65 Type 2 diabetes mellitus with hyperglycemia; F17.210 Nicotine dependence, cigarettes, uncomplicated
CPT/HCPCS: 37226; C1877; 76000-TC-FY; 82962; 94760; J1644

== ENCOUNTER 2018-04-25 11:41 | Inpatient (IN) | payer OTHER ==
[2018-04-25] MEDS ORDERED: ONDANSETRON 4 MG/2 ML VIAL IVPB ONE (12:37)
[2018-04-25] MEDS ORDERED: morphine CARPU-JECT 4 MG/1 ML DISP.SYRIN IVPUSH ONE (12:37)
[2018-04-25] MEDS ORDERED: ACETAMINOPHEN 1000 MG/100 ML VIAL (NON FORMULARY) IVPB ONE (12:37)
[2018-04-25] MEDS ORDERED: ONDANSETRON 4 MG/2 ML VIAL ONE (13:09)
[2018-04-25] MEDS ORDERED: ACETAMINOPHEN INJECTION 100 ML IVPB ONE (13:09)
[2018-04-25] MEDS ORDERED: morphine SULFATE 4 MG/ML VIAL ONE (13:09)
[2018-04-25 13:13] LABS: BASO % 0.7 % (0-2.0); EOS % 0.7 % (0-4.5); HEMOGLOBIN 11.7 GM/dL (10.7-15.3); LYMPH % 23.2 % (8-40); MCH 25.3 pg (25.7-33.7); MCHC 31.5 g/dl (32.0-36.0); MEAN CELL VOLUME 80.4 fl (80-96); MEAN PLT VOLUME 9.2 fl (7.5-11.1); NEUT % 70.4 % (42.8-82.8); PLATELET COUNT 196 K/MM3 (134-434); RBC 4.61 M/mm3 (3.60-5.2); VENOUS PC02 64.2 mmHg (38-52); VENOUS PH 7.26 (7.32-7.42); WHITE BLOOD COUNT 9.8 K/mm3 (4.0-10.0)
[2018-04-25 13:27] LABS: INR 1.57 (0.83-1.09); PROTHROMBIN TIME (PATIENT) 18.6 SEC (9.7-13.0)
[2018-04-25 13:29] LABS: ACTIVATED PTT 34.4 SECONDS (25.2-36.5)
[2018-04-25] MEDS ORDERED: VANCOMYCIN 1 GRAM (PRE-DOCKED) 1,000 MG/250 ML BAG IVPB ONE ×2 (13:30→13:56)
[2018-04-25] MEDS ORDERED: PIPERACILLIN/TAZOB 3.375 GM 3.375 GM in DEXTROSE 5%-WATER - 50 ML IVPB ONE (13:30)
[2018-04-25] MEDS ORDERED: PIPERACILLIN/TAZOB 3.375 GM 3.375 GM/50 ML BAG IVPB ONE ×2 (13:57→14:01)
[2018-04-25 14:04] LABS: ALBUMIN 3.1 g/dl (3.4-5.0); ALK PHOS 134 U/L (45-117); ANION GAP 12 MMOL/L (8-16); BILIRUBIN,TOTAL 0.3 mg/dL (0.2-1); BLOOD UREA NITROGEN 20 mg/dL (7-18); CALCIUM 8.6 mg/dL (8.5-10.1); CHLORIDE 97 mmol/L (98-107); CO2 26 mmol/L (21-32); CREATININE 1.4 mg/dL (0.55-1.3); GLUCOSE,RANDOM 172 mg/dL (74-106); POTASSIUM 4.4 mmol/L (3.5-5.1); SGOT/AST 28 U/L (15-37); SGPT/ALT 17 U/L (13-61); SODIUM 135 mmol/L (136-145); TOT PROT 7.2 g/dl (6.4-8.2)
--- NOTE | 2018-04-25 15:32 | PDOC ---
History of Present Illness - History of Present Illness Initial Comments: 04/25/18 15:35 The patient is a 58 year old female, with a significant PMH of recent fasciotomy s/p for left popliteal artery occlusion c/b compartment syndrome ( admitted to [facility] in July), HIV, diabetes mellitus, hypertension, coronary artery disease (s/p stent in 2014), BL SFA stents (04/17, 05/18) who presents to the emergency department with worsening redness and swelling to a left big toe wound for the past week. Patient ambulates with a walker and needs assistance at baseline. Patient reports having her hyperbaric treatment today and was told the wound had macerated. Patient is not currently on any antibiotics. Patient was told to come to the ER for further evaluation. The patient denies chest pain, shortness of breath, headache and dizziness. Denies fever, chills, nausea, vomit, diarrhea and constipation. Denies dysuria, frequency, urgency and hematuria. Allergies: NKA Past surgical history: None reported Social history: No reported alcohol, drug or cigarette use. <Kiesha Goyal - Last Filed: 04/25/18 15:33> - General History Source: Patient Exam Limitations: No Limitations <Cesar Freeman - Last Filed: 04/25/18 16:20> - General Chief Complaint: Wound Stated Complaint: Wound Time Seen by Provider: 04/25/18 12:36 Past History <Kiesha Goyal - Last Filed: 04/25/18 15:33> - Past Medical History Anemia: Yes Asthma: Yes Cancer: No Cardiac Disorders: Yes (2 stents, [place]) CVA: No COPD: Yes CHF: No Dementia: No Diabetes: Yes GI Disorders: No Disorders: Yes (kidney stones) HTN: Yes Hypercholesterolemia: Yes Kidney Stones: Yes Liver Disease: No Psychiatric Problems: Yes (ANXIETY.) Seizures: No Thyroid Disease: No - Surgical History Abdominal Surgery: No Appendectomy: No Cardiac Surgery: Yes (2 stents) Cholecystectomy: Yes Lung Surgery: No Neurologic Surgery: No Orthopedic Surgery: Yes (right wrist,right ankle,left knee replacement,right elbow 2008; ) - Immunization History Immunization Up to Date: Yes - Suicide/Smoking/Psychosocial Hx Smoking History: Current every day smoker Have you smoked in the past 12 months: Yes Number of Cigarettes Smoked Daily: 7 If you are a former smoker, when did you quit?: 03/19 Cigars Per Day: 0 Information on smoking cessation initiated: No 'Breaking Loose' booklet given: 03/14/18 Hx Alcohol Use: No Drug/Substance Use Hx: No Substance Use Type: None Hx Substance Use Treatment: No <Cesar Freeman - Last Filed: 04/25/18 16:20> - Past Medical History Allergies/Adverse Reactions: Allergies Allergy/AdvReac Type Severity Reaction Status Date / Time Fish Containing Products Allergy Verified 03/18/18 09:53 Home Medications: Ambulatory Orders Pravastatin Sodium [Pravachol -] 40 mg PO HS 07/09/17 Rivaroxaban [Xarelto -] 20 mg PO DAILY #30 tablet 10/25/17 Escitalopram Oxalate [Lexapro -] 20 mg PO DAILY #30 tablet 11/14/17 Mirtazapine [Remeron -] 30 tablet PO HS 30 Days #30 tablet MDD one tablet Lisinopril 5 mg PO HS #30 tablet 11/27/17 Insulin Glargine,Hum.rec.anlog [Toujeo Solostar] 35 unit SQ HS 12/19/17 Insulin Lispro [Humalog] 15 unit SQ AC 12/19/17 Zolpidem Tartrate [Ambien] 10 mg PO HS #30 tablet MDD 1 12/19/17 Aspirin [ASA -] 81 mg PO DAILY 02/19/18 clonazePAM [Klonopin -] 1 mg PO BID 02/19/18 Oxycodone HCl/Acetaminophen [Percocet 10-325 mg Tablet] 1 each PO QID #120 tablet MDD 4 03/11/18 Albuterol Sulfate Inhaler - [Ventolin HFA Inhaler -] 1 - 2 inh PO Q6H PRN #1 inhaler 03/27/18 Bictegrav/Emtricit/Tenofov Ala [Biktarvy 50-200-25 mg Tablet] 1 each PO DAILY # 30 tablet 03/27/18 Oxycodone HCl/Acetaminophen [Oxycodone-Acetaminophen 10-325] 1 each PO QID #120 tablet MDD 4 03/29/18 Gabapentin 800 mg PO BID MDD 2 04/25/18 Review of Systems - Review of Systems Able to Perform ROS?: Yes Comments:: 04/25/18 15:33 ADULT ROS GENERAL/CONSTITUTIONAL: No fever or chills. No weakness. HEAD, EYES, EARS, NOSE AND THROAT: No change in vision. No ear pain or discharge. No sore throat. CARDIOVASCULAR: No chest pain or shortness of breath. RESPIRATORY: No cough, wheezing, or hemoptysis. GASTROINTESTINAL: No nausea, vomiting, diarrhea or constipation. GENITOURINARY: No dysuria, frequency, or change in urination. MUSCULOSKELETAL: No joint or muscle swelling or pain. No neck or back pain. SKIN: (+) Wound. NEUROLOGIC: No headache, vertigo, loss of consciousness, or change in strength/ sensation. ENDOCRINE: No increased thirst. No abnormal weight change. HEMATOLOGIC/LYMPHATIC: No anemia, easy bleeding, or history of blood clots. ALLERGIC/IMMUNOLOGIC: No hives or skin allergy. <Kiesha Goyal - Last Filed: 04/25/18 15:33> *Physical Exam - Vital Signs Last Vital Signs Temp Pulse Resp BP Pulse Ox 98.9 F 88 18 92/51 L 97 04/25/18 12:29 04/25/18 12:29 04/25/18 12:29 04/25/18 12:29 04/25/18 12:29 - Physical Exam Comments: 04/25/18 15:33 ADULT EXAM GENERAL: Awake, alert, and fully oriented, in no acute distress HEAD: No signs of trauma EYES: PERRLA, EOMI, sclera anicteric, conjunctiva clear ENT: Auricles normal inspection, hearing grossly normal, nares patent, oropharynx clear without exudates. Moist mucosa NECK: Normal ROM, supple, no lymphadenopathy, JVD, or masses LUNGS: Breath sounds equal, clear to auscultation bilaterally. No wheezes, and no crackles HEART: Regular rate and rhythm, normal S1 and S2, no murmurs, rubs or gallops ABDOMEN: Soft, nontender, normoactive bowel sounds. No guarding, no rebound. No masses EXTREMITIES: Normal range of motion, no edema. No clubbing or cyanosis. No cords, erythema, or tenderness. NEUROLOGICAL: Cranial nerves II through XII grossly intact. Normal speech, normal gait SKIN: Warm, Dry, normal turgor. (+) Left lower extremity has yellow discoloration. Pain on palpation of the dorsum of the great toe. 1+ dp pulse. <Kiesha Goyal - Last Filed: 04/25/18 15:33> - Vital Signs Last Vital Signs Temp Pulse Resp BP Pulse Ox 98.9 F 88 18 92/51 L 97 04/25/18 12:29 04/25/18 12:29 04/25/18 12:29 04/25/18 12:29 04/25/18 12:29 <Cesar Freeman - Last Filed: 04/25/18 16:20> Heart Score/ECG Review #1 ECG reviewed & interpreted by me at: 15:35 04/25/18 15:38 NSR 84, no std/reyna, normal axis, normal intervals, T wave fla t avL, QTC 470 msec <Cesar Freeman - Last Filed: 04/25/18 16:20> ED Treatment Course - LABORATORY CBC & Chemistry Diagram: 04/25/18 12:50 04/25/18 12:50 - ADDITIONAL ORDERS Additional order review: Laboratory Results 04/25/18 04/25/18 04/25/18 12:50 12:50 12:50 PT with INR INR PTT (Actin FS) VBG pH 7.26 L POC VBG pCO2 64.2 H* D POC VBG pO2 28.0 Mixed VBG HCO3 27.7 H Sodium 135 L Potassium 4.4 Chloride 97 L Carbon Dioxide 26 Anion Gap 12 BUN 20 H Creatinine 1.4 H Creat Clearance w eGFR 38.90 Random Glucose 172 H Lactic Acid 3.7 H* Calcium 8.6 Total Bilirubin 0.3 AST 28 ALT 17 Alkaline Phosphatase 134 H Troponin I 0.07 H C-Reactive Protein 2.3 H Total Protein 7.2 Albumin 3.1 L 04/25/18 12:50 PT with INR 18.60 H INR 1.57 H PTT (Actin FS) 34.4 VBG pH POC VBG pCO2 POC VBG pO2 Mixed VBG HCO3 Sodium Potassium Chloride Carbon Dioxide Anion Gap BUN Creatinine Creat Clearance w eGFR Random Glucose Lactic Acid Calcium Total Bilirubin AST ALT Alkaline Phosphatase Troponin I C-Reactive Protein Total Protein Albumin 04/25/18 12:50 RBC 4.61 MCV 80.4 MCHC 31.5 L RDW 16.0 H MPV 9.2 Neutrophils % 70.4 D Lymphocytes % 23.2 D Monocytes % 5.0 Eosinophils % 0.7 Basophils % 0.7 - Medications Given in the ED: ED Medications Discontinued Medications Generic Name Dose Route Start Last Admin Trade Name Josephine PRN Reason Stop Dose Admin Acetaminophen 1,000 mg 04/25/18 12:37 04/25/18 13:16 Ofirmev Injection - IVPB 04/25/18 12:38 1,000 mg ONCE ONE Administration Piperacillin Sod/Tazobactam 50 mls @ 100 mls/hr 04/25/18 13:30 04/25/18 13:57 Sod 3.375 gm/ Dextrose IVPB 04/25/18 13:59 100 mls/hr ONCE ONE Administration Protocol Morphine Sulfate 4 mg 04/25/18 12:37 04/25/18 13:16 Morphine Injection - IVPUSH 04/25/18 12:38 4 mg ONCE ONE Administration Ondansetron HCl 4 mg 04/25/18 12:37 04/25/18 13:16 Zofran Injection IVPB 04/25/18 12:38 4 mg ONCE ONE Administration Vancomycin HCl 1,000 mg 04/25/18 13:30 04/25/18 14:59 Vancomycin (Pre-Docked) IVPB 04/25/18 13:31 1,000 mg ONCE ONE Administration Protocol <Kiesha Goyal - Last Filed: 04/25/18 15:33> - LABORATORY CBC & Chemistry Diagram: 04/25/18 12:50 04/25/18 12:50 - ADDITIONAL ORDERS Additional order review: Laboratory Results 04/25/18 04/25/18 04/25/18 12:50 12:50 12:50 PT with INR INR PTT (Actin FS) VBG pH 7.26 L POC VBG pCO2 64.2 H* D POC VBG pO2 28.0 Mixed VBG HCO3 27.7 H Sodium 135 L Potassium 4.4 Chloride 97 L Carbon Dioxide 26 Anion Gap 12 BUN 20 H Creatinine 1.4 H Creat Clearance w eGFR 38.90 Random Glucose 172 H Lactic Acid 3.7 H* Calcium 8.6 Total Bilirubin 0.3 AST 28 ALT 17 Alkaline Phosphatase 134 H Troponin I 0.07 H C-Reactive Protein 2.3 H Total Protein 7.2 Albumin 3.1 L 04/25/18 12:50 PT with INR 18.60 H INR 1.57 H PTT (Actin FS) 34.4 VBG pH POC VBG pCO2 POC VBG pO2 Mixed VBG HCO3 Sodium Potassium Chloride Carbon Dioxide Anion Gap BUN Creatinine Creat Clearance w eGFR Random Glucose Lactic Acid Calcium Total Bilirubin AST ALT Alkaline Phosphatase Troponin I C-Reactive Protein Total Protein Albumin 04/25/18 12:50 RBC 4.61 MCV 80.4 MCHC 31.5 L RDW 16.0 H MPV 9.2 Neutrophils % 70.4 D Lymphocytes % 23.2 D Monocytes % 5.0 Eosinophils % 0.7 Basophils % 0.7 - Medications Given in the ED: ED Medications Discontinued Medications Generic Name Dose Route Start Last Admin Trade Name Freq PRN Reason Stop Dose Admin Acetaminophen 1,000 mg 04/25/18 12:37 04/25/18 13:16 Ofirmev Injection - IVPB 04/25/18 12:38 1,000 mg ONCE ONE Administration Piperacillin Sod/Tazobactam 50 mls @ 100 mls/hr 04/25/18 13:30 04/25/18 13:57 Sod 3.375 gm/ Dextrose IVPB 04/25/18 13:59 100 mls/hr ONCE ONE Administration Protocol Morphine Sulfate 4 mg 04/25/18 12:37 04/25/18 13:16 Morphine Injection - IVPUSH 04/25/18 12:38 4 mg ONCE ONE Administration Ondansetron HCl 4 mg 04/25/18 12:37 04/25/18 13:16 Zofran Injection IVPB 04/25/18 12:38 4 mg ONCE ONE Administration Vancomycin HCl 1,000 mg 04/25/18 13:30 04/25/18 14:59 Vancomycin (Pre-Docked) IVPB 04/25/18 13:31 1,000 mg ONCE ONE Administration Protocol <Cesar Freeman - Last Filed: 04/25/18 16:20> Medical Decision Making - Medical Decision Making 04/25/18 15:31 A portion of this note was documented by scribe services under my direction. I have reviewed the details of the note, within reason, and agree with the documentation with the following case summary and management plan written by me. Patient treated in the ED. Nursing notes are reviewed and incorporated into the medical decision-making. Vital signs reviewed. Peripheral IV access obtained by the nurse, laboratory studies are drawn and sent, reviewed and interpreted by myself. Vital Signs Temp Pulse Resp BP Pulse Ox 98.9 F 88 18 92/51 L 97 04/25/18 12:29 04/25/18 12:29 04/25/18 12:29 04/25/18 12:29 04/25/18 12:29 58 year old female patient with history of hypertension, diabetes, hyperlipidemia, coronary disease, peripheral vascular disease status post multiple stents presents with left foot infection. The patient reported injury to left foot that has progressively worsened. Has been undergoing hyperbaric treatments and follow-up with his doctors. Have her, lately the patient is noted to have increasing discharge and foul smell. The patient had an MRI performed week ago and was now diagnosed with osteomyelitis. Patient's director of graduate admissions had contacted Dr. Gabriel Guzmán. Patient is being sent in for admission to the hospital and IV antibiotics. Pt started on vanc and zosyn. 04/25/18 16:18 CBC, BMP 04/25/18 12:50 04/25/18 12:50 CMP Sodium 135 mmol/L (136-145) L 04/25/18 12:50 Potassium 4.4 mmol/L (3.5-5.1) 04/25/18 12:50 Chloride 97 mmol/L (98-107) L 04/25/18 12:50 Carbon Dioxide 26 mmol/L (21-32) 04/25/18 12:50 Anion Gap 12 MMOL/L (8-16) 04/25/18 12:50 BUN 20 mg/dL (7-18) H 04/25/18 12:50 Creatinine 1.4 mg/dL (0.55-1.3) H 04/25/18 12:50 Creat Clearance w eGFR 38.90 (>60) 04/25/18 12:50 Random Glucose 172 mg/dL (74-106) H 04/25/18 12:50 Lactic Acid 3.7 mmol/L (0.4-2.0) H* 04/25/18 12:50 Calcium 8.6 mg/dL (8.5-10.1) 04/25/18 12:50 Total Bilirubin 0.3 mg/dL (0.2-1) 04/25/18 12:50 AST 28 U/L (15-37) 04/25/18 12:50 ALT 17 U/L (13-61) 04/25/18 12:50 Alkaline Phosphatase 134 U/L (45-117) H 04/25/18 12:50 Troponin I 0.07 ng/ml (0.00-0.05) H 04/25/18 12:50 C-Reactive Protein 2.3 MG/DL (0.00-0.3) H 04/25/18 12:50 Total Protein 7.2 g/dl (6.4-8.2) 04/25/18 12:50 Albumin 3.1 g/dl (3.4-5.0) L 04/25/18 12:50 Case discussed with [facility] hospitalist. Case admitted to med/surg admission under Dr. Maldonado. Case discussed in detail with admitting physician including history, physical exam and ancillary studies. Admitting physician has assumed care for the patient, will follow all pending diagnostics and will complete the evaluation and treatment. <Cesar Freeman - Last Filed: 04/25/18 16:20> *DC/Admit/Observation/Transfer - Attestations Scribe Attestion: 04/25/18 15:34 Documentation prepared by Kiesha Goyal, acting as electromedical equipment repairer for Cesar Freeman MD. <Kiesha Goyal - Last Filed: 04/25/18 15:33> - Discharge Dispostion Decision to Admit order: Yes <Cesar Freeman - Last Filed: 04/25/18 16:20> Diagnosis at time of Disposition: Osteomyelitis Qualifiers: Osteomyelitis type: chronic, with draining sinus Osteomyelitis location: foot Laterality: left Qualified Code(s): M86.472 - Chronic osteomyelitis with draining sinus, left ankle and foot Cellulitis Qualifiers: Site of cellulitis: extremity Site of cellulitis of extremity: lower extremity Laterality: left Qualified Code(s): L03.116 - Cellulitis of left lower limb - Discharge Dispostion Condition at time of disposition: Stable - Referrals Referrals: Desirae Hernandez MD [Primary Care Provider] - - Patient Instructions - Post Discharge Activity
--- NOTE | 2018-04-25 15:46 | HP ---
CHIEF COMPLAINT: foot pain. PCP:Desirae Hernandez MD HISTORY OF PRESENT ILLNESS: 57 y/o F with PMH HTN, DM, HLD, HIV (CD4 763, VL < 20 ; follows with [place] [facility] , CAD (s/p stent 2014), fasciotomy s/p L popliteal a. occlusion for compartment syndrome (July 2017), b/l SFA stents (04/17, 05/18), hx R DVT (on Coumadin), iron deficiency anemia, COPD, who presents from wound clinic with worsening foot infection. MRI done on 04/17/18 consistent with osteomyelitis. Seen by ID and wound cultures sent. Patients foot pain worsened and was sent to ED. She states toe was draining purulent fluid. She endorses subjective fevers and chills. Denies CP,STONE, SOB, abdominal pain, nausea or vomiting. ER course was notable for: (1)given one time dose Vanco/Zosyn Recent Travel:none PAST MEDICAL HISTORY:HTN, DM, HLD, HIV (CD4 763, VL < 20 ; follows with [place] [facility]), CAD, PVD, Iron def. anemia, copd PAST SURGICAL HISTORY:Fasciotomy s/p L popliteal a. occlusion for compartment syndrome (July 2017), b/l SFA stents (04/17, 05/18),stent 2014) Social History: Smoking:current daily smoker 7/day Alcohol:denies Drugs: denies Family History: Allergies Fish Containing Products Allergy (Verified 03/18/18 09:53) Pt reports fish allergy HOME MEDICATIONS: Home Medications Medication Instructions Recorded Pravastatin Sodium [Pravachol -] 40 mg PO HS 07/09/17 Rivaroxaban [Xarelto -] 20 mg PO DAILY #30 tablet 10/25/17 Escitalopram Oxalate [Lexapro -] 20 mg PO DAILY #30 tablet 11/14/17 Mirtazapine [Remeron -] 30 tablet PO HS 30 Days #30 tablet 11/14/17 MDD one tablet Lisinopril 5 mg PO HS #30 tablet 11/27/17 Insulin Glargine,Hum.rec.anlog 35 unit SQ HS 12/19/17 [Toujeo Solostar] Insulin Lispro [Humalog] 15 unit SQ AC 12/19/17 Zolpidem Tartrate [Ambien] 10 mg PO HS #30 tablet MDD 1 12/19/17 Aspirin [ASA -] 81 mg PO DAILY 02/19/18 clonazePAM [Klonopin -] 1 mg PO BID 02/19/18 Oxycodone HCl/Acetaminophen 1 each PO QID #120 tablet MDD 4 03/11/18 [Percocet 10-325 mg Tablet] Albuterol Sulfate Inhaler - 1 - 2 inh PO Q6H PRN #1 inhaler 03/27/18 [Ventolin HFA Inhaler -] Bictegrav/Emtricit/Tenofov Ala 1 each PO DAILY #30 tablet 03/27/18 [Biktarvy 50-200-25 mg Tablet] Oxycodone HCl/Acetaminophen 1 each PO QID #120 tablet MDD 4 03/29/18 [Oxycodone-Acetaminophen 10-325] Gabapentin 800 mg PO BID MDD 2 04/25/18 REVIEW OF SYSTEMS CONSTITUTIONAL: Absent: fever, chills, diaphoresis, generalized weakness, malaise, loss of appetite, weight change HEENT: Absent: rhinorrhea, nasal congestion, throat pain, throat swelling, difficulty swallowing, mouth swelling, ear pain, eye pain, visual changes CARDIOVASCULAR: Absent: chest pain, syncope, palpitations, irregular heart rate, lightheadedness , peripheral edema RESPIRATORY: Absent: cough, shortness of breath, dyspnea with exertion, orthopnea, wheezing, stridor, hemoptysis GASTROINTESTINAL: Absent: abdominal pain, abdominal distension, nausea, vomiting, diarrhea, constipation, melena, hematochezia GENITOURINARY: Absent: dysuria, frequency, urgency, hesitancy, hematuria, flank pain, genital pain MUSCULOSKELETAL: left big toe pain Absent: myalgia, arthralgia, joint swelling, back pain, neck pain SKIN: Absent: rash, itching, pallor HEMATOLOGIC/IMMUNOLOGIC: Absent: easy bleeding, easy bruising, lymphadenopathy, frequent infections ENDOCRINE: Absent: unexplained weight gain, unexplained weight loss, heat intolerance, cold intolerance NEUROLOGIC: Absent: headache, focal weakness or paresthesias, dizziness, unsteady gait, seizure, mental status changes, bladder or bowel incontinence PSYCHIATRIC: Absent: anxiety, depression, suicidal or homicidal ideation, hallucinations. PHYSICAL EXAMINATION Vital Signs - 24 hr 04/25/18 12:29 Temperature 98.9 F Pulse Rate 88 Respiratory 18 Rate Blood Pressure 92/51 L O2 Sat by Pulse 97 Oximetry (%) GENERAL: Awake, alert, and fully oriented, in no acute distress HEAD: No signs of trauma EYES: PERRLA, EOMI, sclera anicteric, conjunctiva clear ENT: Auricles normal inspection, hearing grossly normal, nares patent, oropharynx clear without exudates. Moist mucosa NECK: Normal ROM, supple, no lymphadenopathy, JVD, or masses LUNGS: Breath sounds equal, clear to auscultation bilaterally. No wheezes, and no crackles HEART: Regular rate and rhythm, normal S1 and S2, no murmurs, rubs or gallops ABDOMEN: Soft, nontender, normoactive bowel sounds. No guarding, no rebound. No masses EXTREMITIES: Normal range of motion, no edema. No clubbing or cyanosis. No cords, erythema, or tenderness. NEUROLOGICAL: Cranial nerves II through XII grossly intact. Normal speech, normal gait SKIN: Warm, Dry, normal turgor. (+) Left lower extremity has yellow discoloration. Pain on palpation of the dorsum of the great toe. 1+ dp pulse. Laboratory Results - last 24 hr 04/25/18 04/25/18 04/25/18 12:50 12:50 12:50 WBC 9.8 RBC 4.61 Hgb 11.7 Hct 37.0 MCV 80.4 MCH 25.3 L MCHC 31.5 L RDW 16.0 H Plt Count 196 MPV 9.2 Absolute Neuts (auto) 6.9 Neutrophils % 70.4 D Lymphocytes % 23.2 D Monocytes % 5.0 Eosinophils % 0.7 Basophils % 0.7 Nucleated RBC % 0 ESR PT with INR 18.60 H INR 1.57 H PTT (Actin FS) 34.4 VBG pH 7.26 L POC VBG pCO2 64.2 H* D POC VBG pO2 28.0 Mixed VBG HCO3 27.7 H Sodium Potassium Chloride Carbon Dioxide Anion Gap BUN Creatinine Creat Clearance w eGFR Random Glucose Lactic Acid Calcium Total Bilirubin AST ALT Alkaline Phosphatase Troponin I C-Reactive Protein Total Protein Albumin 04/25/18 04/25/18 04/25/18 12:50 12:50 12:50 WBC RBC Hgb Hct MCV MCH MCHC RDW Plt Count MPV Absolute Neuts (auto) Neutrophils % Lymphocytes % Monocytes % Eosinophils % Basophils % Nucleated RBC % ESR 79 H PT with INR INR PTT (Actin FS) VBG pH POC VBG pCO2 POC VBG pO2 Mixed VBG HCO3 Sodium 135 L Potassium 4.4 Chloride 97 L Carbon Dioxide 26 Anion Gap 12 BUN 20 H Creatinine 1.4 H Creat Clearance w eGFR 38.90 Random Glucose 172 H Lactic Acid 3.7 H* Calcium 8.6 Total Bilirubin 0.3 AST 28 ALT 17 Alkaline Phosphatase 134 H Troponin I 0.07 H C-Reactive Protein 2.3 H Total Protein 7.2 Albumin 3.1 L ASSESSMENT/PLAN: 58 yo F with PMhx of PVD and DM presents with osteomyletis and admitted to med- surg for further management. Problem List - Problem (1) Osteomyelitis Assessment/Plan: MRI consistent with osteomyelitis. * Wound culture and bone biospy pending * ID, podiatry, and Vascular consulted. * Broad spectrum IV abx. * Pain control * Wound care; dressing change daily. (2) Human immunodeficiency virus (HIV) disease (3) Anticoagulated on Coumadin (4) CAD S/P percutaneous coronary angioplasty (5) HTN (hypertension) (6) Hyperlipemia (7) Uncontrolled diabetes mellitus Code(s): E11.65 - TYPE 2 DIABETES MELLITUS WITH HYPERGLYCEMIA Qualifiers: Diabetes mellitus type: type 1 Visit type - Emergency Visit Emergency Visit: Yes ED Registration Date: 04/25/18 Care time: The patient presented to the Emergency Department on the above date and was hospitalized for further evaluation of their emergent condition. - New Patient This patient is new to me today: Yes Date on this admission: 04/26/18 - Critical Care Critical Care patient: No
[2018-04-25] MEDS ORDERED: ALBUTEROL SO4 8 GM HFA INHALER IH PRN (15:58)
[2018-04-25] MEDS ORDERED: oxyCODONE HCL 5 MG TABLET PO PRN (16:19)
[2018-04-25] MEDS ORDERED: ACETAMINOPHEN 325 MG TABLET (FP) PO PRN (16:19)
[2018-04-25] MEDS: INSULIN SLIDING SCALE (NOVOLOG) 1 VIAL SQ SCH ×2 (17:17→23:47)
--- NOTE | 2018-04-25 18:17 | PN ---
Progress Note (short form) - Note Progress Note: VA[facility] Surgery Pt seen and examined in Wound care clinic today Complains of left ankle pain. Sent down to ER for CTA However Cr is 1.4. Will make npo past midnight for possible CO2 angio PLease hydrate. INR is 1.57. Gabriel Guzmán DO
--- NOTE | 2018-04-25 19:50 | PN ---
Teaching Attending Note Name of Resident: Tung Reeves ATTENDING PHYSICIAN STATEMENT I saw and evaluated the patient. I reviewed the resident's note and discussed the case with the resident. I agree with the resident's findings and plan as documented. SUBJECTIVE: This is a 58 year old woman with a history of type 2 DM, CAD with stent, HTN, hyperlipidemia, PAD with bilateral SFA stents, left popliteal artery occlusion with compartment syndrome requiring fasciotomy, COPD, stage 3 CKD, anemia, HIV who comes to the ED from wound care for increasing redness and swelling of her left 1st toe with pain in her left leg/ankle. MRI of the left foot done on 04/17 had shown bone marrow edema of the left 1st distal phalanx. She has been undergoing hyperbaric oxygen therapy. She denies fever, chills. OBJECTIVE: Vital Signs Period Temp Pulse Resp BP Sys/Cota Pulse Ox Last 24 Hr 98.9 F 84-88 15-18 92-139/51-78 96-97 HEART: S1S2, RRR LUNGS: Clear ABDOMEN: Obese, soft, non-tender, non-distended, normal BS EXTREMITIES: Laboratory Tests 04/25/18 04/25/18 04/25/18 12:50 12:50 12:50 WBC 9.8 RBC 4.61 Hgb 11.7 Hct 37.0 MCV 80.4 MCH 25.3 L MCHC 31.5 L RDW 16.0 H Plt Count 196 MPV 9.2 Absolute Neuts (auto) 6.9 Neutrophils % 70.4 D Lymphocytes % 23.2 D Monocytes % 5.0 Eosinophils % 0.7 Basophils % 0.7 Nucleated RBC % 0 ESR PT with INR 18.60 H INR 1.57 H PTT (Actin FS) 34.4 VBG pH 7.26 L POC VBG pCO2 64.2 H* D POC VBG pO2 28.0 Mixed VBG HCO3 27.7 H Sodium Potassium Chloride Carbon Dioxide Anion Gap BUN Creatinine Creat Clearance w eGFR POC Glucometer Random Glucose Lactic Acid Calcium Total Bilirubin AST ALT Alkaline Phosphatase Troponin I C-Reactive Protein Total Protein Albumin 04/25/18 04/25/18 04/25/18 12:50 12:50 12:50 WBC RBC Hgb Hct MCV MCH MCHC RDW Plt Count MPV Absolute Neuts (auto) Neutrophils % Lymphocytes % Monocytes % Eosinophils % Basophils % Nucleated RBC % ESR 79 H PT with INR INR PTT (Actin FS) VBG pH POC VBG pCO2 POC VBG pO2 Mixed VBG HCO3 Sodium 135 L Potassium 4.4 Chloride 97 L Carbon Dioxide 26 Anion Gap 12 BUN 20 H Creatinine 1.4 H Creat Clearance w eGFR 38.90 POC Glucometer Random Glucose 172 H Lactic Acid 3.7 H* Calcium 8.6 Total Bilirubin 0.3 AST 28 ALT 17 Alkaline Phosphatase 134 H Troponin I 0.07 H C-Reactive Protein 2.3 H Total Protein 7.2 Albumin 3.1 L 04/25/18 17:14 WBC RBC Hgb Hct MCV MCH MCHC RDW Plt Count MPV Absolute Neuts (auto) Neutrophils % Lymphocytes % Monocytes % Eosinophils % Basophils % Nucleated RBC % ESR PT with INR INR PTT (Actin FS) VBG pH POC VBG pCO2 POC VBG pO2 Mixed VBG HCO3 Sodium Potassium Chloride Carbon Dioxide Anion Gap BUN Creatinine Creat Clearance w eGFR POC Glucometer [id number] Random Glucose Lactic Acid Calcium Total Bilirubin AST ALT Alkaline Phosphatase Troponin I C-Reactive Protein Total Protein Albumin Home Medications Medication Instructions Recorded Pravastatin Sodium [Pravachol -] 40 mg PO HS 07/09/17 Rivaroxaban [Xarelto -] 20 mg PO DAILY #30 tablet 10/25/17 Escitalopram Oxalate [Lexapro -] 20 mg PO DAILY #30 tablet 11/14/17 Mirtazapine [Remeron -] 30 tablet PO HS 30 Days #30 tablet 11/14/17 MDD one tablet Lisinopril 5 mg PO HS #30 tablet 11/27/17 Insulin Glargine,Hum.rec.anlog 35 unit SQ HS 12/19/17 [Toujeo Solostar] Insulin Lispro [Humalog] 15 unit SQ AC 12/19/17 Zolpidem Tartrate [Ambien] 10 mg PO HS #30 tablet MDD 1 12/19/17 Aspirin [ASA -] 81 mg PO DAILY 02/19/18 clonazePAM [Klonopin -] 1 mg PO BID 02/19/18 Oxycodone HCl/Acetaminophen 1 each PO QID #120 tablet MDD 4 03/11/18 [Percocet 10-325 mg Tablet] Albuterol Sulfate Inhaler - 1 - 2 inh PO Q6H PRN #1 inhaler 03/27/18 [Ventolin HFA Inhaler -] Bictegrav/Emtricit/Tenofov Ala 1 each PO DAILY #30 tablet 03/27/18 [Biktarvy 50-200-25 mg Tablet] Oxycodone HCl/Acetaminophen 1 each PO QID #120 tablet MDD 4 03/29/18 [Oxycodone-Acetaminophen 10-325] Gabapentin 800 mg PO BID MDD 2 04/25/18 ASSESSMENT AND PLAN: This is a 58 year old woman with a history of type 2 DM, CAD with stent, HTN, hyperlipidemia, PAD with bilateral SFA stents, left popliteal artery occlusion with compartment syndrome requiring fasciotomy, COPD, stage 3 CKD, anemia, HIV who presented to the ED from wound care with increasing redness and swelling of her left 1st toe with pain in her left leg/ankle. 1. Left 1st toe ulcer with cellulitis and osteomyelitis in a patient with PAD - Zosyn, Vancomycin given in ED - will continue - Wound culture 04/18 grew Corynebacterium - Wound care - ID consult - Vascular surgery consult appreciated - possible CO2 angio tomorrow 2. Type 2 DM - Fingersticks with Novolog sliding scale 3. CAD - Continue aspirin, Pravachol 4. HTN - Continue Lisinopril 5. Hyperlipidemia - Continue Pravachol 6. HIV - Continue Biktarvy 7. COPD - Stable 8. Stage 3 CKD
[2018-04-25] MEDS ORDERED: ATORVASTATIN CA 10 MG TABLET (FP) PO SCH (22:00)
[2018-04-25] MEDS ORDERED: LISINOPRIL 5 MG TABLET (FP) PO SCH (22:00)
[2018-04-25] MEDS ORDERED: MIRTAZAPINE 30 MG TABLET (FP) PO SCH (22:00)
[2018-04-25] MEDS: GABAPENTIN 400 MG CAPSULE (FP) PO SCH (22:33)
[2018-04-25] MEDS: clonazePAM 0.5 MG TABLET PO SCH (22:33)
[2018-04-25] MEDS ORDERED: SODIUM CHLORIDE 1,000 ML IV SCH (23:00)
[2018-04-25 23:27] VITALS: BMI 32.1
[2018-04-26 02:40] LABS: URINE APPEARANCE CLEAR; URINE BILIRUBIN NEGATIVE (<2.0 mg/dL); URINE COLOR COLORLESS; URINE GLUCOSE (UA) NEGATIVE (NEGATIVE); URINE KETONE NEGATIVE (NEGATIVE); URINE LEUK ESTERASE NEGATIVE (NEGATIVE); URINE NITRITE NEGATIVE (NEGATIVE); URINE PROTEIN NEGATIVE (NEGATIVE); URINE UROBILINOGEN NEGATIVE mg/dL (0.2-1.0)
[2018-04-26] MEDS: INSULIN SLIDING SCALE (NOVOLOG) 1 VIAL SQ SCH ×3 (06:14→18:19)
[2018-04-26] MEDS ORDERED: PT OWN MED DRAWER 7, Y5N ONE ×2 (06:55→18:50)
[2018-04-26 07:17] LABS: BASO % 0.2 % (0-2.0); EOS % 1.5 % (0-4.5); HEMATOCRIT 36.1 % (32.4-45.2); HEMOGLOBIN 11.2 GM/dL (10.7-15.3); LYMPH % 35.8 % (8-40); MCH 24.7 pg (25.7-33.7); MCHC 30.9 g/dl (32.0-36.0); MEAN PLT VOLUME 8.9 fl (7.5-11.1); NEUT % 57.5 % (42.8-82.8); PLATELET COUNT 172 K/MM3 (134-434); RBC 4.52 M/mm3 (3.60-5.2); RDW 16.3 % (11.6-15.6)
[2018-04-26 07:32] LABS: INR 1.15 (0.83-1.09); PROTHROMBIN TIME (PATIENT) 13.6 SEC (9.7-13.0)
[2018-04-26 07:35] LABS: ACTIVATED PTT 28.6 SECONDS (25.2-36.5)
[2018-04-26 07:44] LABS: ALBUMIN 3.1 g/dl (3.4-5.0); ALK PHOS 131 U/L (45-117); ANION GAP 8 MMOL/L (8-16); BILIRUBIN,TOTAL 0.3 mg/dL (0.2-1); BLOOD UREA NITROGEN 18 mg/dL (7-18); CHLORIDE 104 mmol/L (98-107); CO2 27 mmol/L (21-32); CREATININE 1.2 mg/dL (0.55-1.3); GLUCOSE,RANDOM 159 mg/dL (74-106); MAGNESIUM 2.4 mg/dL (1.8-2.4); PHOSPHOROUS 4.1 mg/dL (2.5-4.9); POTASSIUM 4.9 mmol/L (3.5-5.1); SGOT/AST 16 U/L (15-37); SGPT/ALT 17 U/L (13-61); SODIUM 138 mmol/L (136-145); TOT PROT 7.1 g/dl (6.4-8.2)
--- NOTE | 2018-04-26 09:40 | EKG ---
Test Reason : Blood Pressure : / mmHG Vent. Rate : 084 BPM Atrial Rate : 084 BPM P-R Int : 152 ms QRS Dur : 084 ms QT Int : 398 ms P-R-T Axes : 064 083 066 degrees QTc Int : 470 ms NORMAL SINUS RHYTHM NORMAL ECG WHEN COMPARED WITH ECG OF 18-MAR-2018 11:16, NO SIGNIFICANT CHANGE WAS FOUND Confirmed by NAWAF WALLER MD ([id number]) on 04/26/2018 9:40:10 AM Referred By: Confirmed By:NAWAF WALLER MD
[2018-04-26] MEDS ORDERED: ESCITALOPRAM OXALATE 20 MG TABLET (FP) PO SCH (10:00)
[2018-04-26] MEDS ORDERED: PATIENT'S OWN MEDICATION (NON-FORMULARY) (Bictegrav/Emtricit/Tenofov Ala [Biktarvy 50-200- PO SCH (10:00)
[2018-04-26] MEDS: GABAPENTIN 400 MG CAPSULE (FP) PO SCH (10:30)
[2018-04-26] MEDS: clonazePAM 0.5 MG TABLET PO SCH (10:31)
--- NOTE | 2018-04-26 11:49 | PN ---
Progress Note, Physician History of Present Illness: patient still with pain in the left leg plan to see if the stents are working - Current Medication List Current Medications: Active Medications Acetaminophen (Tylenol -) 650 mg PO Q6H PRN PRN Reason: PAIN 6-10 Albuterol Sulfate (Ventolin Hfa Inhaler -) 2 puff IH Q6H PRN PRN Reason: ASTHMA Atorvastatin Calcium (Lipitor -) 10 mg PO [facility] Last Admin: 04/25/18 23:33 Dose: 10 mg Clonazepam (Klonopin -) 1 mg PO BID [facility] Last Admin: 04/26/18 10:31 Dose: 1 mg Escitalopram Oxalate (Lexapro -) 20 mg PO DAILY [facility] Last Admin: 04/26/18 10:30 Dose: 20 mg Gabapentin (Neurontin -) 800 mg PO BID [facility] Last Admin: 04/26/18 10:30 Dose: 800 mg Sodium Chloride (Normal Saline -) 1,000 mls @ 83 mls/hr IV ASDIR [facility] Last Admin: 04/25/18 23:41 Dose: 83 mls/hr Insulin Aspart (Novolog Vial Sliding Scale -) 1 vial SQ [facility]; Protocol Last Admin: 04/26/18 06:14 Dose: 2 units Lisinopril (Prinivil) 5 mg PO [facility] Last Admin: 04/25/18 23:34 Dose: 5 mg Mirtazapine (Remeron -) 30 mg PO [facility] Last Admin: 04/25/18 23:37 Dose: 30 mg Non-Formulary Medication (Bictegrav/Emtricit/Tenofov Ala [Biktarvy 50-200-25 Mg Tablet]) 1 each PO DAILY [facility] Oxycodone HCl (Roxicodone -) 10 mg PO Q6H PRN PRN Reason: PAIN 6-10 Last Admin: 04/25/18 23:32 Dose: 10 mg - Objective Vital Signs: Vital Signs Temperature 98.1 F 04/26/18 06:32 Pulse Rate 86 04/26/18 06:32 Respiratory Rate 18 04/26/18 06:32 Blood Pressure 101/59 L 04/26/18 06:32 O2 Sat by Pulse Oximetry (%) 96 04/25/18 23:00 Constitutional: Yes: Calm, Mild Distress Cardiovascular: Yes: Regular Rate and Rhythm Respiratory: Yes: Regular, CTA Bilaterally Gastrointestinal: Yes: Normal Bowel Sounds, Soft Musculoskeletal: Yes: Other Extremities: Yes: Other Integumentary: Yes: Other Neurological: Yes: Alert, Oriented Psychiatric: Yes: Alert, Oriented Labs: CBC, BMP 04/26/18 06:00 04/26/18 06:00 INR, PTT INR 1.15 (0.83-1.09) H 04/26/18 06:00 - ....Imaging Ultrasound: Report Reviewed, Image Reviewed Assessment/Plan patient coming with left leg pain probably due to blood supply issue pain in the ankles pvd leg pain plan will hold of on abx await vascular plan rest continue current mgmt monitor leg pain
--- NOTE | 2018-04-26 12:41 | CONSULT ---
Consult Consult Specialty:: Podiatry Reason for Consultation:: Wound left big toe - History of Present Illness Chief Complaint: Wound left big toe History of Present Illness: Chronic wound left big toe. Poor circulation. Closed stents according to Vascular eval. - History Source History Provided By: Patient - Past Medical History Cardio/Vascular: Yes: HTN, Hyperlipdemia Pulmonary: Yes: Asthma, Other (smoker) Hepatobiliary: Yes: Cholelithiasis ...LMP: 09/30/09 ...: No Infectious Disease: Yes: HIV Musculoskeletal: Yes: Other (wound left big toe) Endocrine: Yes: Diabetes Mellitus - Past Surgical History Past Surgical History: Yes: Cholecystectomy - Alcohol/Substance Use Hx Alcohol Use: No - Smoking History Smoking history: Current some day smoker Have you smoked in the past 12 months: Yes Aproximately how many cigarettes per day: 2 If you are a former smoker, when did you quit?: 03/19 - Social History Usual Living Arrangement: With Significant Other ADL: Independent History of Recent Travel: No Home Medications - Allergies Allergies/Adverse Reactions: Allergies Allergy/AdvReac Type Severity Reaction Status Date / Time Fish Containing Products Allergy Verified 03/18/18 09:53 - Home Medications Home Medications: Ambulatory Orders Pravastatin Sodium [Pravachol -] 40 mg PO HS 07/09/17 Rivaroxaban [Xarelto -] 20 mg PO DAILY #30 tablet 10/25/17 Escitalopram Oxalate [Lexapro -] 20 mg PO DAILY #30 tablet 11/14/17 Mirtazapine [Remeron -] 30 tablet PO HS 30 Days #30 tablet MDD one tablet Lisinopril 5 mg PO HS #30 tablet 11/27/17 Insulin Glargine,Hum.rec.anlog [Roseann Etienne] 35 unit SQ HS 12/19/17 Insulin Lispro [Humalog] 15 unit SQ AC 12/19/17 Zolpidem Tartrate [Ambien] 10 mg PO HS #30 tablet MDD 1 12/19/17 Aspirin [ASA -] 81 mg PO DAILY 02/19/18 clonazePAM [Klonopin -] 1 mg PO BID 02/19/18 Oxycodone HCl/Acetaminophen [Percocet 10-325 mg Tablet] 1 each PO QID #120 tablet MDD 4 03/11/18 Albuterol Sulfate Inhaler - [Ventolin HFA Inhaler -] 1 - 2 inh PO Q6H PRN #1 inhaler 03/27/18 Bictegrav/Emtricit/Tenofov Ala [Biktarvy 50-200-25 mg Tablet] 1 each PO DAILY # 30 tablet 03/27/18 Oxycodone HCl/Acetaminophen [Oxycodone-Acetaminophen 10-325] 1 each PO QID #120 tablet MDD 4 03/29/18 Gabapentin 800 mg PO BID MDD 2 04/25/18 Family Disease History - Family Disease History Family Disease History: Diabetes: Mother (living, ), Brother (one - healthy), Heart Disease: Grandparent, Father (living, ), Mother, Respiratory: Mother, Other: Father, Mother, Brother, Sister (one - living - healthy), Son (two - adults -healthy), Daughter (one -adult -healthy) Review of Systems - Review of Systems Integumentary: reports: Wound (left big toe, pvd b/l, closed stents according to vascular,) Physical Exam Vital Signs: Vital Signs Temperature 98.1 F 04/26/18 06:32 Pulse Rate 86 04/26/18 06:32 Respiratory Rate 18 04/26/18 06:32 Blood Pressure 101/59 L 04/26/18 06:32 O2 Sat by Pulse Oximetry (%) 96 04/25/18 23:00 Labs: CBC, BMP 04/26/18 06:00 04/26/18 06:00 Assessment/Plan pvd chronic wound left big toe non compliant patient om left hallux Santyl dressing change daily. Advised to stop smoking. Procedure today to revascularize. Will follow till dc. IVABX as per ID.
[2018-04-26] MEDS ORDERED: COLLAGENASE CLOSTRIDIUM HIST. 30 GRAMS TUBE TP SCH (12:45)
[2018-04-26 13:50] VITALS: BP 90/55; PULSE 68; TEMP 99.1
--- NOTE | 2018-04-26 15:51 | CON.CARD ---
Consult Consult Specialty:: Cardiology Reason for Consultation:: PVD. CAD - History of Present Illness Chief Complaint: PVD. Sent from facility History of Present Illness: This is a 58 year old female with a PMH of PVD, HIV, DM, HTN, and CAD. She had an LAD REN 04/2015. She had bialteral SFA stents (04/17, 05/18). [facility]. Outpatient Stress test showed an EF of 60%, and a moderate size area of mild anterior wall reversible ischemia. She is being transferred to [facility] for further cardiac assessment. - Past Medical History Cardio/Vascular: Yes: HTN, Hyperlipdemia Pulmonary: Yes: Asthma, Other (smoker) Hepatobiliary: Yes: Cholelithiasis ...LMP: 09/30/09 ...: No Infectious Disease: Yes: HIV Musculoskeletal: Yes: Other (wound left big toe) Endocrine: Yes: Diabetes Mellitus - Past Surgical History Past Surgical History: Yes: Cholecystectomy - Alcohol/Substance Use Hx Alcohol Use: No - Smoking History Smoking history: Current some day smoker Have you smoked in the past 12 months: Yes Aproximately how many cigarettes per day: 2 If you are a former smoker, when did you quit?: 03/19 - Social History Usual Living Arrangement: With Significant Other ADL: Independent History of Recent Travel: No Home Medications - Allergies Allergies/Adverse Reactions: Allergies Allergy/AdvReac Type Severity Reaction Status Date / Time Fish Containing Products Allergy Verified 03/18/18 09:53 - Home Medications Home Medications: Ambulatory Orders Pravastatin Sodium [Pravachol -] 40 mg PO HS 07/09/17 Rivaroxaban [Xarelto -] 20 mg PO DAILY #30 tablet 10/25/17 Escitalopram Oxalate [Lexapro -] 20 mg PO DAILY #30 tablet 11/14/17 Mirtazapine [Remeron -] 30 tablet PO HS 30 Days #30 tablet MDD one tablet Lisinopril 5 mg PO HS #30 tablet 11/27/17 Insulin Glargine,Hum.rec.anlog [Roseann Etienne] 35 unit SQ HS 12/19/17 Insulin Lispro [Humalog] 15 unit SQ AC 12/19/17 Zolpidem Tartrate [Ambien] 10 mg PO HS #30 tablet MDD 1 12/19/17 Aspirin [ASA -] 81 mg PO DAILY 02/19/18 clonazePAM [Klonopin -] 1 mg PO BID 02/19/18 Oxycodone HCl/Acetaminophen [Percocet 10-325 mg Tablet] 1 each PO QID #120 tablet MDD 4 03/11/18 Albuterol Sulfate Inhaler - [Ventolin HFA Inhaler -] 1 - 2 inh PO Q6H PRN #1 inhaler 03/27/18 Bictegrav/Emtricit/Tenofov Ala [Biktarvy 50-200-25 mg Tablet] 1 each PO DAILY # 30 tablet 03/27/18 Oxycodone HCl/Acetaminophen [Oxycodone-Acetaminophen 10-325] 1 each PO QID #120 tablet MDD 4 03/29/18 Gabapentin 800 mg PO BID MDD 2 04/25/18 Family Disease History - Family Disease History Family Disease History: Diabetes: Mother (living, ), Brother (one - healthy), Heart Disease: Grandparent, Father (living, ), Mother, Respiratory: Mother, Other: Father, Mother, Brother, Sister (one - living - healthy), Son (two - adults -healthy), Daughter (one -adult -healthy) Review of Systems Findings/Remarks: As Per HPI Vital Signs: Vital Signs Temperature 99.1 F 04/26/18 13:49 Pulse Rate 68 04/26/18 13:49 Respiratory Rate 20 04/26/18 13:49 Blood Pressure 90/55 L 04/26/18 13:49 O2 Sat by Pulse Oximetry (%) 96 04/25/18 23:00 Constitutional: Yes: Well Nourished Eyes: Yes: WNL Neck: Yes: WNL Respiratory: Yes: CTA Bilaterally Gastrointestinal: Yes: Normal Bowel Sounds Cardiovascular: Yes: Regular Rate and Rhythm (NL S1S2 no MRHG) JVD: No Extremities: Yes: Erythema (of toe Dressings), Other Neurological: Yes: Alert, Oriented (Sleepy) - Other Data Labs, Other Data: CBC, BMP 04/26/18 06:00 04/26/18 06:00 INR, PTT INR 1.15 (0.83-1.09) H 04/26/18 06:00 Troponin, BNP 04/26/18 13:35 Troponin I 0.03 Troponin, BNP 04/26/18 13:35 Troponin I 0.03 Assessment/Plan 58 year old female with a PMH of PVD, HIV, DM, HTN, and CAD. She had an LAD REN 04/2015. She had bialteral SFA stents (04/17, 05/18). She presents from her [facility] for a left toe infection. Outpatient Stress test showed an EF of 60%, and a moderate size area of mild anterior wall reversible ischemia. She is being transferred to [facility] for further cardiac assessment. She is being admitted to the Telemetry floor for Cardiac and Vascular consultation.
--- NOTE | 2018-04-26 16:04 | PN ---
Progress Note (short form) - Note Progress Note: Vascular surgery Pt seen and examined at bedside with family. LLE warm, with pain at the ankle. Getting antibiotics for cellulitis Pt with abnormal stress test recently and will be transferred to [facility] for cath. US done here yest showed popliteal artery disease in left leg. It is progression of her disease due to her on going smoking. Pt will come back to [place] for leg intervention after cardiac cath. Gabriel Guzmán DO
--- NOTE | 2018-04-26 17:24 | DS ---
Physical Exam: SUBJECTIVE: Patient seen and examined OBJECTIVE: Vital Signs Period Temp Pulse Resp BP Sys/Cota Pulse Ox Last 24 Hr 98.1 F-99.1 F 68-88 17-20 77-134/39-79 96-96 PHYSICAL EXAM GENERAL: The patient is awake, alert, and fully oriented, in no acute distress. HEAD: Normal with no signs of trauma. EYES: PERRL, extraocular movements intact, sclera anicteric, conjunctiva clear. ENT: Ears normal, nares patent, oropharynx clear without exudates, moist mucous membranes. NECK: Trachea midline, full range of motion, supple. LUNGS: Breath sounds equal, clear to auscultation bilaterally, no wheezes, no crackles, no accessory muscle use. HEART: Regular rate and rhythm, S1, S2 without murmur, rub or gallop. ABDOMEN: Soft, nontender, nondistended, normoactive bowel sounds, no guarding, no rebound, no hepatosplenomegaly, no masses. EXTREMITIES: 2+ pulses, warm, well-perfused, no edema. NEUROLOGICAL: Cranial nerves II through XII grossly intact. Normal speech, gait not observed. PSYCH: Normal mood, normal affect. SKIN: Warm, dry, normal turgor, no rashes or lesions noted. LABS Laboratory Results - last 24 hr 04/25/18 04/25/18 04/26/18 17:14 23:46 02:30 WBC RBC Hgb Hct MCV MCH MCHC RDW Plt Count MPV Absolute Neuts (auto) Neutrophils % Lymphocytes % Monocytes % Eosinophils % Basophils % Nucleated RBC % PT with INR INR PTT (Actin FS) Sodium Potassium Chloride Carbon Dioxide Anion Gap BUN Creatinine Creat Clearance w eGFR POC Glucometer [id number] 289 Random Glucose Lactic Acid Calcium Phosphorus Magnesium Total Bilirubin AST ALT Alkaline Phosphatase Troponin I Total Protein Albumin Urine Color Colorless Urine Appearance Clear Urine pH 5.0 Ur Specific [place] 1.003 L Urine Protein Negative Urine Glucose (UA) Negative Urine Ketones Negative Urine Blood Negative Urine Nitrite Negative Urine Bilirubin Negative Urine Urobilinogen Negative Ur Leukocyte Esterase Negative 04/26/18 04/26/18 04/26/18 02:30 06:00 06:00 WBC 6.0 RBC 4.52 Hgb 11.2 Hct 36.1 MCV 80.0 MCH 24.7 L MCHC 30.9 L RDW 16.3 H Plt Count 172 MPV 8.9 Absolute Neuts (auto) 3.5 Neutrophils % 57.5 Lymphocytes % 35.8 D Monocytes % 5.0 Eosinophils % 1.5 D Basophils % 0.2 Nucleated RBC % 0 PT with INR 13.60 H INR 1.15 H PTT (Actin FS) 28.6 Sodium Potassium Chloride Carbon Dioxide Anion Gap BUN Creatinine Creat Clearance w eGFR POC Glucometer Random Glucose Lactic Acid 0.2 L Calcium Phosphorus Magnesium Total Bilirubin AST ALT Alkaline Phosphatase Troponin I Total Protein Albumin Urine Color Urine Appearance Urine pH Ur Specific [place] Urine Protein Urine Glucose (UA) Urine Ketones Urine Blood Urine Nitrite Urine Bilirubin Urine Urobilinogen Ur Leukocyte Esterase 04/26/18 04/26/18 04/26/18 06:00 06:13 12:14 WBC RBC Hgb Hct MCV MCH MCHC RDW Plt Count MPV Absolute Neuts (auto) Neutrophils % Lymphocytes % Monocytes % Eosinophils % Basophils % Nucleated RBC % PT with INR INR PTT (Actin FS) Sodium 138 Potassium 4.9 Chloride 104 Carbon Dioxide 27 Anion Gap 8 BUN 18 Creatinine 1.2 Creat Clearance w eGFR 46.47 POC Glucometer 166 166 Random Glucose 159 H Lactic Acid Calcium 9.0 Phosphorus 4.1 Magnesium 2.4 Total Bilirubin 0.3 AST 16 ALT 17 Alkaline Phosphatase 131 H Troponin I Total Protein 7.1 Albumin 3.1 L Urine Color Urine Appearance Urine pH Ur Specific [place] Urine Protein Urine Glucose (UA) Urine Ketones Urine Blood Urine Nitrite Urine Bilirubin Urine Urobilinogen Ur Leukocyte Esterase 04/26/18 04/26/18 13:35 17:02 WBC RBC Hgb Hct MCV MCH MCHC RDW Plt Count MPV Absolute Neuts (auto) Neutrophils % Lymphocytes % Monocytes % Eosinophils % Basophils % Nucleated RBC % PT with INR INR PTT (Actin FS) Sodium Potassium Chloride Carbon Dioxide Anion Gap BUN Creatinine Creat Clearance w eGFR POC Glucometer 156 Random Glucose Lactic Acid Calcium Phosphorus Magnesium Total Bilirubin AST ALT Alkaline Phosphatase Troponin I 0.03 Total Protein Albumin Urine Color Urine Appearance Urine pH Ur Specific [place] Urine Protein Urine Glucose (UA) Urine Ketones Urine Blood Urine Nitrite Urine Bilirubin Urine Urobilinogen Ur Leukocyte Esterase HOSPITAL COURSE: Date of Admission:04/25/18 Date of Discharge: 04/26/18 This is a 58 year old female with a PMH of PVD, HIV, DM, HTN, and CAD. She had an LAD REN 04/2015. She had bialteral SFA stents (04/17, 05/18). She presents from her [facility] for a left toe infection. Outpatient Stress test showed an EF of 60%, and a moderate size area of mild anterior wall reversible ischemia. She is being transferred to [facility] for further cardiac assessment. 58 year old female with a PMH of HTN, HLD, CAD with stent, PAD with bilateral SFA stents, left popliteal artery occlusion with compartment syndrome requiring fasciotomy, COPD, stage 3 CKD, anemia, HIV, Type II DM. Patient had an LAD REN 04/2015. She had bialteral SFA stents (04/17, 05/18). Patient presented to the ED from her [facility] for a left toe infection. In March patient had an outpatient stress test showed an EF of 60%, and a moderate size area of mild anterior wall reversible ischemia. Patient was supposed to follow up with Dr. Fritz but failed to appear for her appointment. She is being transferred to [facility] for further cardiac assessment. Hospital course by problem list 1. Left 1st toe ulcer with cellulitis and osteomyelitis in a patient with PAD - started on Zosyn, Vancomycin - Wound culture 04/18 grew Corynebacterium - Wound care - ID consult - Vascular surgery consult appreciated - was scheduled for OR procedure on but postponed 2. Type 2 DM - Fingersticks with Novolog sliding scale 3. CAD - Continued aspirin, Pravachol 4. HTN - Continued Lisinopril 5. Hyperlipidemia - Continued Pravachol 6. HIV - Continued Biktarvy 7. COPD - Stable 8. Stage 3 CKD Minutes to complete discharge: 35 Discharge Summary Reason For Visit: CELLULITIS,OSTEOMYELITIS Current Active Problems Anticoagulated on Coumadin (Acute) Cellulitis (Acute) Osteomyelitis (Acute) Condition: Stable - Instructions Referrals: Desirae Hernandez MD [Primary Care Provider] - Disposition: TRANSFER ACUTE CARE/OTHER HOSP - Home Medications Comprehensive Discharge Medication List: Ambulatory Orders Rivaroxaban [Xarelto -] 20 mg PO DAILY #30 tablet 10/25/17 Insulin Glargine,Hum.rec.anlog [Toujeo Solostar] 35 unit SQ HS 12/19/17 Insulin Lispro [Humalog] 15 unit SQ AC 12/19/17 Aspirin [ASA -] 81 mg PO DAILY 02/19/18 Albuterol Sulfate Inhaler - [Ventolin HFA Inhaler -] 2 puff IH Q6H PRN inhaler 04/26/18 Atorvastatin Ca [Lipitor] 10 mg PO HS tablet 04/26/18 Collagenase Clostridium Hist. [Santyl -] 1 applic TP DAILY tube 04/26/18 Escitalopram Oxalate [Lexapro -] 20 mg PO DAILY tablet 04/26/18 Gabapentin [Neurontin -] 800 mg PO BID capsule 04/26/18 Insulin Sliding Scale [Novolog Vial Sliding Scale -] 1 vial SQ ACHS units 04/26 Lisinopril [Prinivil] 5 mg PO HS tablet 04/26/18 Mirtazapine [Remeron -] 30 mg PO HS tablet 04/26/18 clonazePAM [Klonopin -] 1 mg PO BID #60 tablet MDD 2 04/26/18 This patient is new to me today: Yes Date on this admission: 04/26/18 Emergency Visit: No Critical Care patient: No - Discharge Referral Referred to [facility] No
--- NOTE | 2018-04-27 11:32 | CON.ID ---
Consult Consult Specialty:: infectious diseases Referred by:: dr wahl Reason for Consultation:: cellulitis of the left leg - History of Present Illness Chief Complaint: pain and swelling of the left leg History of Present Illness: 57 y/o F with PMH HTN, DM, HLD, HIV (CD4 763, VL < 20 ; follows with [facility] , CAD (s/p stent 2014), fasciotomy s/p L popliteal a. occlusion for compartment syndrome (July 2017), b/l SFA stents (04/17, 05/18), hx R DVT (on Coumadin), iron deficiency anemia, COPD, who presents from wound clinic with worsening foot infection. MRI done on 04/17/18 consistent with osteomyelitis. wound cultures sent. Patients foot pain worsened and was sent to ED. She states toe was draining purulent fluid. She endorses subjective fevers and chills. Denies CP,STONE, SOB, abdominal pain, nausea or vomiting. on examining her currently no drainage note from the wound - History Source History Provided By: Patient Limitations to Obtaining History: No Limitations - Past Medical History Cardio/Vascular: Yes: HTN, Hyperlipdemia Pulmonary: Yes: Asthma, Other (smoker) Hepatobiliary: Yes: Cholelithiasis ...LMP: 09/30/09 ...: No Infectious Disease: Yes: HIV Musculoskeletal: Yes: Other (wound left big toe) Endocrine: Yes: Diabetes Mellitus - Past Surgical History Past Surgical History: Yes: Cholecystectomy - Alcohol/Substance Use Hx Alcohol Use: No - Smoking History Smoking history: Current some day smoker Have you smoked in the past 12 months: Yes Aproximately how many cigarettes per day: 2 If you are a former smoker, when did you quit?: 03/19 - Social History Usual Living Arrangement: With Significant Other ADL: Independent History of Recent Travel: No Home Medications - Allergies Allergies/Adverse Reactions: Allergies Allergy/AdvReac Type Severity Reaction Status Date / Time Fish Containing Products Allergy Verified 03/18/18 09:53 - Home Medications Home Medications: Ambulatory Orders Rivaroxaban [Xarelto -] 20 mg PO DAILY #30 tablet 10/25/17 Insulin Glargine,Hum.rec.anlog [Toujeo Solostar] 35 unit SQ HS 12/19/17 Insulin Lispro [Humalog] 15 unit SQ AC 12/19/17 Aspirin [ASA -] 81 mg PO DAILY 02/19/18 Albuterol Sulfate Inhaler - [Ventolin HFA Inhaler -] 2 puff IH Q6H PRN inhaler 04/26/18 Atorvastatin Ca [Lipitor] 10 mg PO HS tablet 04/26/18 Collagenase Clostridium Hist. [Santyl -] 1 applic TP DAILY tube 04/26/18 Escitalopram Oxalate [Lexapro -] 20 mg PO DAILY tablet 04/26/18 Gabapentin [Neurontin -] 800 mg PO BID capsule 04/26/18 Insulin Sliding Scale [Novolog Vial Sliding Scale -] 1 vial SQ ACHS units 04/26 Lisinopril [Prinivil] 5 mg PO HS tablet 04/26/18 Mirtazapine [Remeron -] 30 mg PO HS tablet 04/26/18 clonazePAM [Klonopin -] 1 mg PO BID #60 tablet MDD 2 04/26/18 Family Disease History - Family Disease History Family Disease History: Diabetes: Mother (living, ), Brother (one - healthy), Heart Disease: Grandparent, Father (living, ), Mother, Respiratory: Mother, Other: Father, Mother, Brother, Sister (one - living - healthy), Son (two - adults -healthy), Daughter (one -adult -healthy) Review of Systems - Review of Systems Constitutional: reports: No Symptoms Eyes: reports: No Symptoms HENT: reports: No Symptoms Neck: reports: No Symptoms Cardiovascular: reports: No Symptoms Respiratory: reports: No Symptoms Gastrointestinal: reports: No Symptoms Musculoskeletal: reports: Joint Pain Integumentary: reports: Change in Color, Other Neurological: reports: No Symptoms Endocrine: reports: No Symptoms Hematology/Lymphatic: reports: No Symptoms Psychiatric: reports: No Symptoms Physical Exam Vital Signs: Vital Signs Temperature 99.1 F 04/26/18 13:49 Pulse Rate 68 04/26/18 13:49 Respiratory Rate 20 04/26/18 13:49 Blood Pressure 90/55 L 04/26/18 13:49 O2 Sat by Pulse Oximetry (%) 96 04/25/18 23:00 Constitutional: Yes: Well Nourished, Calm, Mild Distress Eyes: Yes: Conjunctiva Clear HENT: Yes: Atraumatic, Normocephalic Neck: Yes: Supple, Trachea Midline Cardiovascular: Yes: Regular Rate and Rhythm Respiratory: Yes: Regular, CTA Bilaterally Gastrointestinal: Yes: Normal Bowel Sounds, Soft Musculoskeletal: Yes: Muscle Pain Extremities: Yes: Other (pain in the left leg) Neurological: Yes: Alert, Oriented Psychiatric: Yes: Alert, Oriented Labs: CBC, BMP 04/26/18 06:00 04/26/18 06:00 Assessment/Plan patient coming with left leg pain probably due to blood supply issue pain in the ankles pvd leg pain osteo wound infection plan will hold of on abx await vascular plan rest continue current mgmt monitor leg pain look at the stents will d/w wound care
== END 2018-04-26 20:05 | disposition short-term general hospital (02) | DRG 638 ==
LOC: JER 11:41 → JERBED 16:20 → J7W 22:08
PROVIDERS: ADMIT Internal Medicine; ATTEND Nurse Practitioner Acute Care
DX: E11.69 Type 2 diabetes mellitus with other specified complication (principal); M86.172 Other acute osteomyelitis, left ankle and foot; E11.621 Type 2 diabetes mellitus with foot ulcer; L97.529 Non-pressure chronic ulcer of other part of left foot with unspecified severity; I25.10 Atherosclerotic heart disease of native coronary artery without angina pectoris; E78.5 Hyperlipidemia, unspecified; I12.9 Hypertensive chronic kidney disease with stage 1 through stage 4 chronic kidney disease, or unspecified chronic kidney disease; E11.22 Type 2 diabetes mellitus with diabetic chronic kidney disease; N18.3 Chronic kidney disease, stage 3 (moderate); Z98.61 Coronary angioplasty status; E11.65 Type 2 diabetes mellitus with hyperglycemia; Z21 Asymptomatic human immunodeficiency virus [HIV] infection status; Z79.4 Long term (current) use of insulin
CPT/HCPCS: 36415; 80053; 81003; 82803; 82962; 83605; 83735; 84100; 84484; 85025; 85610; 85651; 85730; 86140; 87040; 93005; 93010; 93926-TC; 99285-25; G0277; G0463-25; J0131; J7030

== ENCOUNTER 2018-05-04 19:26 | Emergency (ER) | payer OTHER ==
[2018-05-04 19:30] VITALS: TEMP 97.7; BMI 31.1
--- NOTE | 2018-05-04 19:37 | PDOC ---
Attending Attestation - HPI HPI: 05/04/18 21:03 The patient is a 58 year old female with a significant PMH of diabetes, fasciotomy, HIV, hypertension, CAD (s/p stents 2014), anxiety, anemia, asthma, COPD, kidney stones, hypercholesterolemia who presents to the emergency department with chest pain since earlier today. The patient reports that she was released from [facility] yesterday after having 3 stents placed in her leg. She reports that her chest pain has been a sharp , constant radiating pain to her back and a 10/10 in severity. The patient also reports some epigastric pain. She states that she has only eaten soup today. She endorses some nausea. She denies any other symptoms. She denies any fever chills vomiting , diarrhea, constipation, or urinary symptoms. She denies any shortness of breath , headache or dizziness. The patient denies any other complaints. Cardiology: Dr Fritz - Physicial Exam PE: 05/04/18 21:03 GENERAL: Awake, alert, and fully oriented, in no acute distress HEAD: No signs of trauma EYES: PERRLA, EOMI, sclera anicteric, conjunctiva clear ENT: Auricles normal inspection, hearing grossly normal, nares patent, oropharynx clear without exudates. Moist mucosa NECK: Normal ROM, supple, no lymphadenopathy, JVD, or masses LUNGS: Breath sounds equal, clear to auscultation bilaterally. No wheezes, and no crackles HEART: Regular rate and rhythm, normal S1 and S2, no murmurs, rubs or gallops ABDOMEN: (+) gassy bowel sounds, epigastric discomfort. Soft, nontender. No guarding, no rebound. No masses EXTREMITIES: (+)deep lac on left lower leg . no pitting edema. Normal range of motion. No clubbing or cyanosis. No cords, erythema, or tenderness NEUROLOGICAL: Cranial nerves II through XII grossly intact. Normal speech, normal gait SKIN: Warm, Dry, normal turgor, no rashes or lesions noted. Documentation prepared by Moriah Bellamy, acting as medical coding manager for Ayesha Buenrostro MD. <Moriah Bellamy - Last Filed: 05/04/18 21:03> - Resident Resident Name: Yony Young - ED Attending Attestation I have performed the following: I have examined & evaluated the patient, The case was reviewed & discussed with the resident, I agree w/resident's findings & plan - Medical Decision Making 05/04/18 20:39 Pt comes with epigastric pain and tachycardia and anxiety. SHe was d/c from [facility] today. She was sent there from here a few days ago, when she was having CP; States that she was told that she didn't require immediate stent placement in the coronary arteries, though she had 80% blockage. She was found to have multiple blockages in her "left leg" (?femoral artery) and she had 3 separate stents placed in the left leg. Pt states that she had nothing to eat but soup. She is gassy and has epigastric discomfort. She has normal vitals and BP is a bit low. She took all her DM and HTN meds today, but she has had little to nothing to eat. She will have basic labs sent and she will be reevaluated. 05/04/18 20:52 Pt has an abnormal EKG that is different from 1 week ago when she was here. 05/04/18 20:59 Blood sugar is 40; she will be given something to eat. 05/04/18 21:11 Pt's other labs are normal. She will have a 2nd cardiac enzyme checked and then we will consider whether to send pt home, or admit her. <Ayesha Buenrostro - Last Filed: 05/04/18 21:12> Heart Score/ECG Review - ECG Intrepretation Rhythm: Regular Rhythm - Bishop Bishop: Normal - P and MD Delta Wave(s) Present: No WPW: No - QRS Poor R Wave Progression: No Q Wave Present: No - ST and T Early Repolarization: No Non Specific ST-T Wave changes: Yes Flattened T Waves: Yes Prolonged Q-T Interval: Yes - ECG Impressions Normal ECG: No Non-specific ST Elevation: No Ischemic Changes: Yes Bradycardia: No <Ayesha Buenrostro - Last Filed: 05/04/18 21:12>
[2018-05-04] MEDS ORDERED: FAMOTIDINE 20 MG/50 ML IVPB 20 MG/50 ML MG IVPB ONE (20:10)
[2018-05-04] MEDS ORDERED: SODIUM CHLORIDE 0.9% 1000 ML INFUS.BAG IV ONE (20:10)
[2018-05-04] MEDS ORDERED: ONDANSETRON 4 MG/2 ML VIAL IVPUSH ONE (20:10)
[2018-05-04 20:14] LABS: BASO % 0.4 % (0-2.0); EOS % 1.3 % (0-4.5); HEMATOCRIT 34.1 % (32.4-45.2); HEMOGLOBIN 11.3 GM/dL (10.7-15.3); LYMPH % 26.4 % (8-40); MCHC 33.1 g/dl (32.0-36.0); MEAN CELL VOLUME 78.7 fl (80-96); MEAN PLT VOLUME 8.8 fl (7.5-11.1); MONO % 7.2 % (3.8-10.2); NEUT % 64.7 % (42.8-82.8); PLATELET COUNT 197 K/MM3 (134-434); RBC 4.33 M/mm3 (3.60-5.2); RDW 16.7 % (11.6-15.6); WHITE BLOOD COUNT 11.4 K/mm3 (4.0-10.0)
[2018-05-04] MEDS ORDERED: MAG HYDROX/AL HYDROX/SIMETH 30 ML UNIT-DOSE CUP PO ONE (20:30)
--- NOTE | 2018-05-04 20:39 | PDOC ---
History of Present Illness - General Chief Complaint: Chest Pain Stated Complaint: CHEST PAIN Time Seen by Provider: 05/04/18 19:37 History Source: Patient Exam Limitations: No Limitations - History of Present Illness Initial Comments: 05/04/18 20:30 The patient is a 58F with a PMH of recent fasciotomy s/p for left popliteal artery occlusion c/b compartment syndrome (admitted to [facility] in July), HIV, diabetes mellitus, hypertension, coronary artery disease (s/p stent in 2014), BL SFA stents (04/17, 05/18) who presents to the ER with complaints of chest and epigastric pain. The patient describes xiphoid/subxiphoid sharp, constant, sudden onset pain which radiates to her back. She states the pain comes in spasms and is a 10/10. She denies any numbness, tingling, or weakness, SOB, fevers, chills, and vomiting. She admits to nausea and worsening pain after eating soup today. Past History - Past Medical History Allergies/Adverse Reactions: Allergies Allergy/AdvReac Type Severity Reaction Status Date / Time Fish Containing Products Allergy Verified 05/04/18 19:30 Home Medications: Ambulatory Orders Rivaroxaban [Xarelto -] 20 mg PO DAILY #30 tablet 10/25/17 Insulin Glargine,Hum.rec.anlog [Toubrian Solostar] 35 unit SQ HS 12/19/17 Insulin Lispro [Humalog] 15 unit SQ AC 12/19/17 Aspirin [ASA -] 81 mg PO DAILY 02/19/18 Albuterol Sulfate Inhaler - [Ventolin HFA Inhaler -] 2 puff IH Q6H PRN inhaler 04/26/18 Atorvastatin Ca [Lipitor] 10 mg PO HS tablet 04/26/18 Collagenase Clostridium Hist. [Santyl -] 1 applic TP DAILY tube 04/26/18 Escitalopram Oxalate [Lexapro -] 20 mg PO DAILY tablet 04/26/18 Gabapentin [Neurontin -] 800 mg PO BID capsule 04/26/18 Insulin Sliding Scale [Novolog Vial Sliding Scale -] 1 vial SQ ACHS units 04/26 Lisinopril [Prinivil] 5 mg PO HS tablet 04/26/18 Mirtazapine [Remeron -] 30 mg PO HS tablet 04/26/18 clonazePAM [Klonopin -] 1 mg PO BID #60 tablet MDD 2 04/26/18 Anemia: Yes Asthma: Yes Cancer: No Cardiac Disorders: Yes (2 stents, OR) CVA: No COPD: Yes CHF: No Dementia: No Diabetes: Yes GI Disorders: No Disorders: Yes (kidney stones) HTN: Yes Hypercholesterolemia: Yes Kidney Stones: Yes Liver Disease: No Psychiatric Problems: Yes (ANXIETY.) Seizures: No Thyroid Disease: No - Surgical History Abdominal Surgery: No Appendectomy: No Cardiac Surgery: Yes (2 stents) Cholecystectomy: Yes Lung Surgery: No Neurologic Surgery: No Orthopedic Surgery: Yes (right wrist,right ankle,left knee replacement,right elbow 2009; ) - Immunization History Immunization Up to Date: Yes - Suicide/Smoking/Psychosocial Hx Smoking History: Current some day smoker Have you smoked in the past 12 months: Yes Number of Cigarettes Smoked Daily: 2 If you are a former smoker, when did you quit?: 03/19 Cigars Per Day: 0 Information on smoking cessation initiated: No 'Breaking Loose' booklet given: 03/14/18 Hx Alcohol Use: No Drug/Substance Use Hx: No Substance Use Type: None Hx Substance Use Treatment: No Review of Systems - Review of Systems Able to Perform ROS?: Yes Comments:: 05/04/18 20:39 GENERAL/CONSTITUTIONAL: No fever or chills. No weakness. HEAD, EYES, EARS, NOSE AND THROAT: No change in vision. No ear pain or discharge. No sore throat. CARDIOVASCULAR: Positive for chest pain. No palpitations or lightheadedness. RESPIRATORY: No cough, wheezing, shortness of breath, or hemoptysis. GASTROINTESTINAL: Positive for nausea and abdominal pain. No hematochezia, melena, vomiting, diarrhea, or constipation. GENITOURINARY: No dysuria, frequency, hematuria, or change in urination. MUSCULOSKELETAL: No joint or muscle swelling or pain. No neck or back pain. SKIN: No rash or lesions. NEUROLOGIC: No headache, numbness, tingling, focal weakness, loss of consciousness, or change in strength/sensation. ENDOCRINE: No increased thirst. No abnormal weight change. HEMATOLOGIC/LYMPHATIC: Positive for history of blood clots and recent stents in legs. ALLERGIC/IMMUNOLOGIC: No hives or skin allergy. Is the patient limited Yi proficient: No *Physical Exam - Vital Signs Last Vital Signs Temp Pulse Resp BP Pulse Ox 97.7 F 109 H 18 110/67 98 05/04/18 19:27 05/04/18 19:27 05/04/18 19:27 05/04/18 19:27 05/04/18 19:27 - Physical Exam Comments: 05/04/18 20:47 GENERAL: Well developed, well nourished. Awake and alert. No acute distress. HEENT: Normocephalic, atraumatic. Hearing grossly normal. Moist mucous membranes. PERRLA, EOMI. No conjunctival pallor. Sclera are non-icteric. NECK: Supple. Full ROM. No JVD. Carotid pulses without bruits. CARDIOVASCULAR: Regular rate and rhythm. No murmurs, rubs, or gallops. Distal pulses are 2+ and symmetric. PULMONARY: No evidence of respiratory distress. Lungs clear to auscultation bilaterally. No wheezing, rales or rhonchi. ABDOMINAL: Soft. TTP over epigastrium and RUQ. Non-distended. No rebound or guarding. GENITOURINARY: No CVA tenderness bilaterally. MUSCULOSKELETAL: TTP over anterior chest wall. Normal range of motion at all joints. No bony deformities or tenderness. EXTREMITIES: No cyanosis. No clubbing. No edema. No calf tenderness or swelling. SKIN: Warm and dry. Normal capillary refill. No rashes. No jaundice. NEUROLOGICAL: Alert, awake, appropriate. Cranial nerves 2-12 intact. No deficits to light touch and temperature in face, upper extremities and lower extremities. Moves all 4 extremities antigravity except for LL extremity which is unchanged for patient. Normal speech. PSYCHIATRIC: Cooperative. Good eye contact. Appropriate mood and affect. ED Treatment Course - LABORATORY CBC & Chemistry Diagram: 05/04/18 20:09 05/04/18 20:09 - ADDITIONAL ORDERS Additional order review: 05/04/18 20:09 RBC 4.33 MCV 78.7 L MCHC 33.1 RDW 16.7 H MPV 8.8 Neutrophils % 64.7 Lymphocytes % 26.4 D Monocytes % 7.2 Eosinophils % 1.3 Basophils % 0.4 - RADIOLOGY Radiology Studies Ordered: Category Date Time Status CHEST X-RAY PORTABLE* [RAD] Stat Radiology 05/04/18 20:05 Ordered - Medications Given in the ED: ED Medications Discontinued Medications Generic Name Dose Route Start Last Admin Trade Name Freq PRN Reason Stop Dose Admin Sodium Chloride 1,000 ml 05/04/18 20:10 05/04/18 20:18 Normal Saline - IV 05/04/18 20:11 1,000 ml ONCE ONE Administration Medical Decision Making - Medical Decision Making 05/04/18 20:48 The patient is a 58F with an extensive PMH who presents to the ER with chest/ epigastric pain radiating to her back concerning for ACS, dissection, pancreatitis. Pending labs and imaging. CXR ordered. EKG shows flattened t- waves. The patient was recently cathed and unsure of heart stents but had lower extremity stents placed and IVC filter. Concern for PE due to recent surgery and immobilization but less likely as the patient is on clopidogrel and asa. 05/04/18 20:55 Trop, CBC, CMP, and lipase negative. Will hydrate pt, give pepcid and maalox, and repeat troponin in 3 hours. Will monitor closely. 05/04/18 21:01 Pt has glucose of 40. Will give food to eat. CXR unremarkable on preliminary read. 05/04/18 22:52 Pt requested leaving AMA. I encouraged her to stay. Pending repeat troponin. 05/04/18 23:32 Repeat troponin negative. Will d/c with PCP f/u. *DC/Admit/Observation/Transfer Diagnosis at time of Disposition: Atypical chest pain - Discharge Dispostion Disposition: HOME Condition at time of disposition: Stable Decision to Admit order: No - Referrals - Patient Instructions Printed Discharge Instructions: How to Avoid Gas, DI for Atypical Chest Pain Additional Instructions: Please follow up with your primary care physician in 2-3 days. Please return to the ER if you have any signs or symptoms of chest pain, shortness of breath, uncontrollable fever, chills, nausea, vomiting, numbness, tingling, or weakness in any part of your body, changes in vision, or slurred speech. Please take your medications as prescribed. Please return to the ER if symptoms persist, worsen, or new symptoms arise. - Post Discharge Activity
[2018-05-04] MEDS ORDERED: MAG HYDROX/AL HYDROX/SIMETH 30 ML UNIT-DOSE CUP ONE (20:40)
[2018-05-04 20:50] LABS: INR 1.18 (0.83-1.09)
[2018-05-04 20:52] LABS: ALBUMIN 3.2 g/dl (3.4-5.0); ALK PHOS 133 U/L (45-117); ANION GAP 12 MMOL/L (8-16); BILIRUBIN,TOTAL 0.4 mg/dL (0.2-1); BLOOD UREA NITROGEN 14 mg/dL (7-18); CALCIUM 8.6 mg/dL (8.5-10.1); CHLORIDE 106 mmol/L (98-107); CO2 25 mmol/L (21-32); CREATININE 1.2 mg/dL (0.55-1.3); LIPASE 104 U/L (73-393); POTASSIUM 3.6 mmol/L (3.5-5.1); SGOT/AST 15 U/L (15-37); SGPT/ALT 15 U/L (13-61); SODIUM 142 mmol/L (136-145); TOT PROT 7.4 g/dl (6.4-8.2)
[2018-05-04 20:57] LABS: GLUCOSE,RANDOM 40 mg/dL (74-106)
[2018-05-04 23:44] VITALS: BP 112/68; PULSE 84
--- NOTE | 2018-05-05 11:42 | EKG ---
Test Reason : Blood Pressure : / mmHG Vent. Rate : 094 BPM Atrial Rate : 094 BPM P-R Int : 162 ms QRS Dur : 092 ms QT Int : 404 ms P-R-T Axes : 055 065 039 degrees QTc Int : 505 ms NORMAL SINUS RHYTHM PROLONGED QT ABNORMAL ECG WHEN COMPARED WITH ECG OF 25-APR-2018 15:34, NO SIGNIFICANT CHANGE WAS FOUND Confirmed by NAWAF WALLER MD ([id number]) on 05/05/2018 11:42:42 AM Referred By: Confirmed By:NAWAF WALLER MD
== END 2018-05-04 23:44 | disposition home or self-care (01) ==
LOC: JER 19:26
PROC: 3E033GC Introduction of Other Therapeutic Substance into Peripheral Vein, Percutaneous Approach (ICD-10-PCS; principal; 2018-05-04)
DX: R07.89 Other chest pain (principal); I25.10 Atherosclerotic heart disease of native coronary artery without angina pectoris; I10 Essential (primary) hypertension; Z95.5 Presence of coronary angioplasty implant and graft; E11.9 Type 2 diabetes mellitus without complications; Z79.4 Long term (current) use of insulin; E78.00 Pure hypercholesterolemia, unspecified; F41.9 Anxiety disorder, unspecified; D64.9 Anemia, unspecified; J44.9 Chronic obstructive pulmonary disease, unspecified; J45.909 Unspecified asthma, uncomplicated; I73.9 Peripheral vascular disease, unspecified; R94.31 Abnormal electrocardiogram [ECG] [EKG]; B20 Human immunodeficiency virus [HIV] disease; Z86.718 Personal history of other venous thrombosis and embolism; Z95.820 Peripheral vascular angioplasty status with implants and grafts; E11.649 Type 2 diabetes mellitus with hypoglycemia without coma
CPT/HCPCS: 36415; 71045-TC-FY; 80053; 82550; 82553; 83690; 84484; 85025; 85610; 93005; 93010; 99283-25; J7030

== ENCOUNTER 2018-07-30 15:11 | Day surgery (SDC) | payer OTHER ==
[2018-07-29 15:29] VITALS: BMI 29.2
--- NOTE | 2018-07-30 14:06 | HP ---
Admitting History and Physical - Admission Chief Complaint: RLE claudication. S/p angioplasty with stent placement. Now with new pain. Limitations to Obtaining History: No Limitations - Past Medical History Cardiovascular: Yes: HTN, Hyperlipdemia Pulmonary: Yes: Asthma, Other Hepatobiliary: Yes: Cholelithiasis ...LMP: 09/30/09 Infectious Disease: Yes: HIV Musculoskeletal: Yes: Other Endocrine: Yes: Diabetes Mellitus - Past Surgical History Past Surgical History: Yes: Cholecystectomy - Smoking History Smoking history: Former smoker Have you smoked in the past 12 months: Yes Aproximately how many cigarettes per day: 2 If you are a former smoker, when did you quit?: 06/01/2018 - Alcohol/Substance Use Hx Alcohol Use: No - Social History ADL: Independent History of Recent Travel: No Home Medications - Allergies Allergies/Adverse Reactions: Allergies Allergy/AdvReac Type Severity Reaction Status Date / Time Fish Containing Products Allergy Verified 05/04/18 19:30 - Home Medications Home Medications: Ambulatory Orders Rivaroxaban [Xarelto -] 20 mg PO DAILY #30 tablet 10/25/17 Insulin Glargine,Hum.rec.anlog [Toujeo Solostar] 35 unit SQ HS 12/19/17 Insulin Lispro [Humalog] 15 unit SQ AC 12/19/17 Aspirin [ASA -] 81 mg PO DAILY 02/19/18 Albuterol Sulfate Inhaler - [Ventolin HFA Inhaler -] 2 puff IH Q6H PRN inhaler 04/26/18 Escitalopram Oxalate [Lexapro -] 20 mg PO DAILY tablet 04/26/18 Gabapentin [Neurontin -] 800 mg PO BID capsule 04/26/18 Insulin Sliding Scale [Novolog Vial Sliding Scale -] 1 vial SQ ACHS units 04/26 Lisinopril [Prinivil] 5 mg PO HS tablet 04/26/18 Mirtazapine [Remeron -] 30 mg PO HS tablet 04/26/18 clonazePAM [Klonopin -] 1 mg PO BID #60 tablet MDD 2 04/26/18 Bictegrav/Emtricit/Tenofov Ala [Biktarvy 50-200-25 mg Tablet] 1 each PO DAILY # 30 tablet 07/25/18 Clopidogrel Bisulfate [Plavix -] 75 mg PO DAILY 07/25/18 Family Disease History - Family Disease History Family Disease History: Diabetes: Mother (living, ), Brother (one - healthy), Heart Disease: Grandparent, Father (living, ), Mother, Respiratory: Mother, Other: Father, Mother, Brother, Sister (one - living - healthy), Son (two - adults -healthy), Daughter (one -adult -healthy) Review of Systems - Review of Systems Constitutional: reports: No Symptoms Eyes: reports: No Symptoms HENT: reports: No Symptoms Neck: reports: No Symptoms Cardiovascular: reports: No Symptoms Respiratory: reports: No Symptoms Gastrointestinal: reports: No Symptoms Genitourinary: reports: No Symptoms Breasts: reports: No Symptoms Reported Musculoskeletal: reports: No Symptoms Integumentary: reports: No Symptoms Neurological: reports: No Symptoms Endocrine: reports: No Symptoms Hematology/Lymphatic: reports: No Symptoms Psychiatric: reports: No Symptoms Physical Examination Constitutional: Yes: Well Nourished, No Distress, Calm Eyes: Yes: WNL, Conjunctiva Clear, EOM Intact HENT: Yes: WNL, Atraumatic, Normocephalic Neck: Yes: WNL, Supple, Trachea Midline Cardiovascular: Yes: WNL, Regular Rate and Rhythm Respiratory: Yes: WNL, Regular, CTA Bilaterally Gastrointestinal: Yes: WNL, Normal Bowel Sounds Musculoskeletal: Yes: WNL Extremities: Yes: WNL Edema: No Peripheral Pulses WNL: No Integumentary: Yes: WNL Neurological: Yes: WNL, Alert, Oriented ...Motor Strength: WNL Psychiatric: Yes: WNL Problem List - Problems (1) Atherosclerosis of right lower extremity with rest pain Assessment/Plan: For angiogram today. Code(s): I70.221 - ATHSCL [place] ARTERIES OF EXTREMITIES W REST PAIN, RIGHT LEG
[2018-07-30] MEDS ORDERED: MIDAZOLAM HCL 2 MG/2 ML SINGLE DOSE VIAL ONE ×3 (15:53→17:31)
[2018-07-30] MEDS ORDERED: HEPARIN NA (PORCINE) 5,000 UNITS/ML 1ML VIAL ONE ×3 (16:11→16:57)
[2018-07-30] MEDS ORDERED: ceFAZolin SODIUM 1 GM VIAL ONE (16:43)
[2018-07-30] MEDS ORDERED: LIDOCAINE HCL 1%, 10 MG/ML (20ML VIAL) NR ONE (16:52)
--- NOTE | 2018-07-30 17:28 | OP ---
Operative Note - Note: Operative Date: 07/30/18 Pre-Operative Diagnosis: RLE claudication Operation: Aortogram, RLE angiogram, SFA angioplasty Findings: SFA stent occlusion Post-Operative Diagnosis: Same as Pre-op Surgeon: Gabriel Guzmán Anesthesia: Fractional Estimated Blood Loss (mls): 50 Operative Report Dictated: Yes
[2018-07-30] MEDS ORDERED: HYDROmorphone HCl 2 MG/ML VIAL ONE (17:31)
[2018-07-30] MEDS ORDERED: ONDANSETRON 4 MG/2 ML VIAL IVPUSH PRN (18:16)
[2018-07-30] MEDS ORDERED: LACTATED RINGERS SOLUTION 1,000 ML IV SCH (18:30)
[2018-07-30] MEDS ORDERED: MIDAZOLAM HCL 2 MG/2 ML SINGLE DOSE VIAL IVPUSH ONE (18:30)
[2018-07-30] MEDS ORDERED: HYDROmorphone HCl 2 MG/ML VIAL IVPUSH ONE (18:30)
[2018-07-30 20:16] VITALS: BP 118/72; PULSE 100; TEMP 97.9
--- NOTE | 2018-07-31 13:46 | OP ---
DATE OF OPERATION: 07/30/2018 PREOPERATIVE DIAGNOSIS: Right lower extremity claudication. POSTOPERATIVE DIAGNOSIS: Right lower extremity claudication. PROCEDURE: Aortogram, right lower extremity angiogram, superficial femoral artery angioplasty. SURGEON: Gabriel Wilder DO ANESTHESIA: Fractional. BLOOD LOSS: 50 mL. The patient is a 58-year-old female that comes in with right lower extremity claudication. She has had angioplasty and stent placement in her right SFA in the past and she has been on Xarelto recently. She ran out of Xarelto about 3 weeks ago and had stopped taking it. She did not reach out to her primary care physician or myself to be given a new prescription for the drug. Since she has been off the Xarelto her stents closed and now she needs angioplasty. Patient came into ambulatory surgery. Patient was consented for the procedure understanding all risks, benefits and alternatives. Then taken to the operating room. Once in the operating room was laid on the operating table in a supine manner and the area of the right and left groin was prepped and draped in a sterile surgical manner. We then under ultrasound guidance visualized the left common femoral artery and 10 mL of lidocaine 1% was injected there. We then went ahead and took a Micropuncture needle, punctured the left common femoral artery. Micropuncture wire inserted. Micropuncture sheath was inserted. Then a traditional 5-Bahamian sheath was inserted. A 0.035 floppy guidewire was inserted into the aorta followed by an Omni Flush catheter. We then shot an aortogram via hand injection showing that the aorta and iliac arteries were without any disease. We then used our 0.035 floppy guidewire and went up and over to the right common femoral artery and our Omni Flush catheter followed. We then shot an angiogram of the right lower extremity showing that the profunda and the common femoral artery were patent. The SFA from its origin is occluded. The stents are occluded. The above-knee popliteal artery and flow comes back and patient has 2-vessel runoff into the foot. At this point we placed a 0.035 stiff guidewire into our occluded stent and we were able to get the wire down. We removed the Omni Flush catheter. A 6 x 45 crossover sheath was placed; 5000 units of IV heparin were administered to the patient. We then went ahead and used a 6 x 200 Ultraverse balloon and performed angioplasty of the entire length of the stents. Completion angiogram now showed that the stents were patent and there was good flow all the way down through the stents into the popliteal artery and down into the foot. Patient had 2-vessel runoff into the foot. At this point we decided no more intervention was needed. We brought our sheath up and over. StarClose device was successfully deployed in the left common femoral artery. Pressure was held for 5 minutes after which there was no more bleeding. The area was wet and dried and Dermabond was placed. Patient tolerated the procedure with no complication. Patient transferred to PACU in stable condition. Total blood loss 50 mL. GABRIEL WILDER DO NP/[id number]
== END 2018-07-30 20:15 | disposition home or self-care (01) ==
LOC: JASU-SURG 15:11
PROVIDERS: ATTEND Surgery Vascular Surgery
PROC: 047K3ZZ Dilation of Right Femoral Artery, Percutaneous Approach (ICD-10-PCS; principal; 2018-07-30 16:00)
DX: I70.211 Atherosclerosis of native arteries of extremities with intermittent claudication, right leg (principal); E11.65 Type 2 diabetes mellitus with hyperglycemia; I10 Essential (primary) hypertension; Z21 Asymptomatic human immunodeficiency virus [HIV] infection status; Z87.891 Personal history of nicotine dependence; Z95.820 Peripheral vascular angioplasty status with implants and grafts
CPT/HCPCS: 37224; C1725; 76000-TC-FY; 82962; 94760; J1644

== ENCOUNTER 2018-08-08 12:37 | Day surgery (SDC) | payer OTHER ==
[2018-08-07 14:17] VITALS: BMI 29.2
[2018-08-08 14:03] LABS: BASO % 0.5 % (0-2.0); HEMATOCRIT 36.7 % (32.4-45.2); HEMOGLOBIN 12.1 GM/dL (10.7-15.3); LYMPH % 26.4 % (8-40); MCH 26.4 pg (25.7-33.7); MCHC 32.8 g/dl (32.0-36.0); MEAN CELL VOLUME 80.5 fl (80-96); MONO % 5.3 % (3.8-10.2); NEUT % 66.8 % (42.8-82.8); PLATELET COUNT 196 K/MM3 (134-434); RBC 4.56 M/mm3 (3.60-5.2); RDW 15.4 % (11.6-15.6); WHITE BLOOD COUNT 9.1 K/mm3 (4.0-10.0)
[2018-08-08 14:15] LABS: INR 1.08 (0.83-1.09); PROTHROMBIN TIME (PATIENT) 12.8 SEC (9.7-13.0)
[2018-08-08 14:59] LABS: ALBUMIN 3.5 g/dl (3.4-5.0); ALK PHOS 174 U/L (45-117); ANION GAP 7 MMOL/L (8-16); BILIRUBIN,TOTAL 0.3 mg/dL (0.2-1); BLOOD UREA NITROGEN 11 mg/dL (7-18); CHLORIDE 103 mmol/L (98-107); CO2 25 mmol/L (21-32); CREATININE 1.1 mg/dL (0.55-1.3); GLUCOSE,RANDOM 116 mg/dL (74-106); POTASSIUM 4.1 mmol/L (3.5-5.1); SGOT/AST 15 U/L (15-37); SGPT/ALT 21 U/L (13-61); SODIUM 136 mmol/L (136-145); TOT PROT 7.8 g/dl (6.4-8.2)
[2018-08-08] MEDS ORDERED: HEPARIN NA (PORCINE) 5,000 UNITS/ML 1ML VIAL ONE ×2 (15:53→18:06)
[2018-08-08] MEDS ORDERED: LIDOCAINE HCL 1%, 10 MG/ML (20ML VIAL) ONE (15:53)
[2018-08-08] MEDS ORDERED: ceFAZolin SODIUM 1 GM VIAL IVPB ONE (16:00)
[2018-08-08] MEDS ORDERED: LIDOCAINE HCL 1%, 10 MG/ML (20ML VIAL) PNB ONE (16:02)
[2018-08-08] MEDS ORDERED: IOHEXOL 300 MG/ML INFUS..BTL IV ONE (16:15)
[2018-08-08] MEDS ORDERED: ONDANSETRON 4 MG/2 ML VIAL IVPUSH PRN (17:18)
[2018-08-08] MEDS ORDERED: ACETAMINOPHEN 325 MG TABLET (FP) PO PRN (17:18)
[2018-08-08] MEDS ORDERED: oxyCODONE HCL 5 MG TABLET PO PRN (17:18)
[2018-08-08] MEDS ORDERED: MIDAZOLAM HCL 2 MG/2 ML SINGLE DOSE VIAL ONE ×2 (17:36→17:38)
[2018-08-08] MEDS ORDERED: PROPOFOL 20 ML ONE ×3 (17:41→18:16)
[2018-08-08] MEDS ORDERED: ceFAZolin SODIUM 1 GM VIAL ONE (17:46)
[2018-08-08] MEDS ORDERED: SODIUM CHLORIDE 0.9% P/F 10 ML VIAL IJ ONE (17:46)
[2018-08-08] MEDS ORDERED: HYDROmorphone HCl 2 MG/ML VIAL ONE (18:49)
[2018-08-08] MEDS: HYDROmorphone HCl 2 MG/ML VIAL IVPUSH PRN ×4 (18:50→19:20)
--- NOTE | 2018-08-08 18:51 | OP ---
Operative Note - Note: Operative Date: 08/08/18 Pre-Operative Diagnosis: LLE ischemia Operation: Aortogram, RLE SFA angioplasty, tibial artery angioplasty Findings: SFA stent occlusion outflow occlusion Post-Operative Diagnosis: Same as Pre-op Surgeon: Gabriel Guzmán Anesthesia: Fractional Estimated Blood Loss (mls): 50 Operative Report Dictated: Yes
--- NOTE | 2018-08-08 18:53 | HP ---
Admitting History and Physical - Admission Chief Complaint: LLE ischemia Limitations to Obtaining History: No Limitations - Past Medical History Cardiovascular: Yes: HTN, Hyperlipdemia Pulmonary: Yes: Asthma, Other Hepatobiliary: Yes: Cholelithiasis ...LMP: 09/30/09 Infectious Disease: Yes: HIV Musculoskeletal: Yes: Other Endocrine: Yes: Diabetes Mellitus - Past Surgical History Past Surgical History: Yes: Cholecystectomy - Smoking History Smoking history: Former smoker Have you smoked in the past 12 months: Yes Aproximately how many cigarettes per day: 2 If you are a former smoker, when did you quit?: 06/01/2018 - Alcohol/Substance Use Hx Alcohol Use: No - Social History ADL: Independent History of Recent Travel: No Home Medications - Allergies Allergies/Adverse Reactions: Allergies Allergy/AdvReac Type Severity Reaction Status Date / Time Fish Containing Products Allergy Verified 08/08/18 13:08 - Home Medications Home Medications: Ambulatory Orders Insulin Glargine,Hum.rec.anlog [Toujeo Solostar] 35 unit SQ HS 12/19/17 Insulin Lispro [Humalog] 15 unit SQ AC 12/19/17 Aspirin [ASA -] 81 mg PO DAILY 02/19/18 Albuterol Sulfate Inhaler - [Ventolin HFA Inhaler -] 2 puff IH Q6H PRN inhaler 04/26/18 Escitalopram Oxalate [Lexapro -] 20 mg PO DAILY tablet 04/26/18 Gabapentin [Neurontin -] 800 mg PO BID capsule 04/26/18 Insulin Sliding Scale [Novolog Vial Sliding Scale -] 1 vial SQ ACHS units 04/26 clonazePAM [Klonopin -] 1 mg PO BID #60 tablet MDD 2 04/26/18 Bictegrav/Emtricit/Tenofov Ala [Biktarvy 50-200-25 mg Tablet] 1 each PO DAILY # 30 tablet 07/25/18 Clopidogrel Bisulfate [Plavix -] 75 mg PO DAILY 07/25/18 Rivaroxaban [Xarelto -] 20 mg PO DAILY #30 tablet 08/05/18 Family Disease History - Family Disease History Family Disease History: Diabetes: Mother (living, ), Brother (one - healthy), Heart Disease: Grandparent, Father (living, ), Mother, Respiratory: Mother, Other: Father, Mother, Brother, Sister (one - living - healthy), Son (two - adults -healthy), Daughter (one -adult -healthy) Review of Systems - Review of Systems Constitutional: reports: No Symptoms Eyes: reports: No Symptoms HENT: reports: No Symptoms Neck: reports: No Symptoms Cardiovascular: reports: No Symptoms Respiratory: reports: No Symptoms Gastrointestinal: reports: No Symptoms Genitourinary: reports: No Symptoms Breasts: reports: No Symptoms Reported Musculoskeletal: reports: No Symptoms Integumentary: reports: No Symptoms Neurological: reports: No Symptoms Endocrine: reports: No Symptoms Hematology/Lymphatic: reports: No Symptoms Psychiatric: reports: No Symptoms Physical Examination Vital Signs: Vital Signs Temperature 97.4 F L 08/08/18 13:01 Pulse Rate 100 H 08/08/18 13:01 Respiratory Rate 16 08/08/18 13:01 Blood Pressure 133/86 08/08/18 13:01 O2 Sat by Pulse Oximetry (%) 99 08/08/18 13:01 Constitutional: Yes: Well Nourished, No Distress, Calm Eyes: Yes: WNL, Conjunctiva Clear, EOM Intact HENT: Yes: WNL, Atraumatic, Normocephalic Neck: Yes: WNL, Supple, Trachea Midline Cardiovascular: Yes: WNL, Regular Rate and Rhythm Respiratory: Yes: WNL, Regular, CTA Bilaterally Gastrointestinal: Yes: WNL, Normal Bowel Sounds Musculoskeletal: Yes: WNL Extremities: Yes: WNL Edema: No Peripheral Pulses WNL: No Integumentary: Yes: WNL Neurological: Yes: WNL, Alert, Oriented ...Motor Strength: WNL Psychiatric: Yes: WNL Labs: CBC, BMP 08/08/18 13:43 08/08/18 13:43 Problem List - Problems (1) Ischemia of left lower extremity Assessment/Plan: 1. For angiogram today Code(s): I99.8 - OTHER DISORDER OF CIRCULATORY SYSTEM
[2018-08-08] MEDS ORDERED: ALBUTEROL SO4 0.083% IH SOL 2.5 MG/3 ML VIAL.NEB. NEB PRN (20:14)
[2018-08-08 22:36] VITALS: BP 117/78; PULSE 97; TEMP 98
--- NOTE | 2018-08-16 09:35 | OP ---
DATE OF OPERATION: 08/08/2018 PREOPERATIVE DIAGNOSIS: Left lower extremity ischemia. POSTOPERATIVE DIAGNOSIS: Left lower extremity ischemia. PROCEDURE: Aortogram, right lower extremity superficial femoral artery angioplasty, tibial artery angioplasty. FINDINGS: SFA stent occlusion, outflow occlusion. SURGEON: Gabriel Wilder MD ANESTHESIA: Fractional. BLOOD LOSS: 50 mL. INDICATIONS: The patient is a 58-year-old female who comes in with left lower extremity ischemia. She had a preoperative ultrasound showing that the stents in her left leg that were placed at [facility] are occluded. It was decided that she would need an angiogram. Patient was consented for the procedure understanding all risks, benefits, and alternatives and then taken to the operating room. PROCEDURE IN DETAIL: Once in the operating suite, she was placed on the operating table in the supine manner, and the area of the right and left groin were prepped and draped in the sterile surgical manner. We then injected 10 mL of lidocaine 1% over the right common femoral artery. We then took our micropuncture needle, punctured the right common femoral artery. Micropuncture wire was inserted. A 5-Arabic sheath was inserted. We then placed a 0.035 floppy guidewire up into the aorta followed by an Omni Flush catheter. We then shot an aortogram via head injection showing that the aorta and iliac arteries were without any disease. We then used a 0.035 stiff guidewire and went up and over to the left common femoral artery and we got our wire into the left SFA. We then went ahead and brought our sheath down. We then brought our Omni Flush catheter down to the left common femoral artery. We then shot an angiogram of the left lower extremity showing that the common femoral artery and the profunda were patent. The SFA had a stent in it, which was occluded, and the popliteal artery was patent, and there is some anterior tibial artery disease which had the main runoff going into the foot. At this point, we went ahead and placed a 0.035 stiff guidewire into the SFA, removed our Omni Flush catheter. A 6 x 45 crossover sheath was placed. Then, 5000 units of IV heparin was administered. We then went ahead and placed a 6 x 150 balloon and performed angioplasty of the SFA stents. We then went ahead and shot a completion angiogram showing that the SFA stents were now patent. We then got our wire down into the popliteal artery and selectively cannulated into the anterior tibial artery and changed our wire to a pilot plant operator wire. We then went ahead and used a 2.5 x 10 balloon and performed angioplasty of the anterior tibial artery. Completion angiogram now showed that the SFA was patent, the stents were patent, and there was good outflow into the tibial artery. At this point, we decided that there was no more intervention needed. The artery that we ballooned seemed like it could be a collateral starting at the top that is feeding the anterior tibial artery going down into the foot. At this point, no intervention was needed. We brought our sheath up and over. StarClose device was successfully deployed in the right common femoral artery. Pressure was held for 5 minutes. After that, there was no bleeding. The area was wet and dried, and Dermabond was placed. The patient tolerated the procedure with no complications. Patient transferred to PACU in stable condition. Total blood loss 50 mL. GABRIEL WILDER DO [id number]
== END 2018-08-08 21:40 | disposition home or self-care (01) ==
LOC: JASU-SURG 12:37 → J8W 21:01 → JASU-SURG 21:40
PROVIDERS: ATTEND Surgery Vascular Surgery
PROC: 047Q3Z6 (ICD-10-PCS; 2018-08-08)
PROC: [UNRECOGNIZED PROCEDURE] (principal; 2018-08-08 16:30)
DX: I70.212 Atherosclerosis of native arteries of extremities with intermittent claudication, left leg (principal); T82.856A Stenosis of peripheral vascular stent, initial encounter
CPT/HCPCS: 37224; 37228; C1725; 36415; 80053; 85025; 85610; 94760; J1644

== ENCOUNTER 2018-10-12 02:50 | Emergency (ER) | payer OTHER ==
[2018-10-12 03:01] VITALS: BP 117/70; PULSE 98; TEMP 97.7; BMI 30.6
--- NOTE | 2018-10-12 03:24 | PDOC ---
History of Present Illness - General Chief Complaint: Pain Stated Complaint: BODY SPASMS Time Seen by Provider: 10/12/18 03:23 Past History - Past Medical History Allergies/Adverse Reactions: Allergies Allergy/AdvReac Type Severity Reaction Status Date / Time Fish Containing Products Allergy Verified 10/12/18 02:58 Home Medications: Ambulatory Orders Insulin Glargine,Hum.rec.anlog [Toujeo Solostar] 35 unit SQ HS 12/19/17 Albuterol Sulfate Inhaler - [Ventolin HFA Inhaler -] 2 puff IH Q6H PRN inhaler 04/26/18 Gabapentin [Neurontin -] 800 mg PO BID capsule 04/26/18 Insulin Sliding Scale [Novolog Vial Sliding Scale -] 1 vial SQ ACHS units 04/26 Bictegrav/Emtricit/Tenofov Ala [Biktarvy 50-200-25 mg Tablet] 1 each PO DAILY # 30 tablet 07/25/18 Clopidogrel Bisulfate [Plavix -] 75 mg PO DAILY 07/25/18 Rivaroxaban [Xarelto -] 20 mg PO DAILY #30 tablet 08/05/18 Bupropion HCl [Bupropion Xl] 300 mg PO AM #30 tab.er.24h 10/03/18 Duloxetine HCl 30 mg PO HS #30 capsule.dr 10/03/18 Zolpidem Tartrate [Ambien] 10 mg PO HS #30 tablet MDD 1 10/03/18 Nicotine Patch [Nicoderm Patch -] 1 patch TD DAILY #30 patch 10/07/18 Anemia: Yes Asthma: Yes Cancer: No Cardiac Disorders: Yes (cardiac stent x2, [place] 2014) CVA: No COPD: Yes CHF: No Dementia: No Diabetes: Yes GI Disorders: No Disorders: No HTN: No Hypercholesterolemia: No Kidney Stones: Yes Liver Disease: No Psychiatric Problems: Yes (ANXIETY.) Seizures: No Thyroid Disease: No - Surgical History Abdominal Surgery: No Appendectomy: No Cardiac Surgery: Yes (2 stents) Cholecystectomy: Yes Lung Surgery: No Neurologic Surgery: No Orthopedic Surgery: Yes (right wrist,right ankle,left knee replacement,right elbow 2008; ) - Immunization History Immunization Up to Date: Yes - Suicide/Smoking/Psychosocial Hx Smoking History: Never smoked Have you smoked in the past 12 months: No Number of Cigarettes Smoked Daily: 2 If you are a former smoker, when did you quit?: 06/01/2018 Cigars Per Day: 0 Information on smoking cessation initiated: No 'Breaking Loose' booklet given: 03/14/18 Hx Alcohol Use: No Drug/Substance Use Hx: No Substance Use Type: None Hx Substance Use Treatment: No *Physical Exam - Vital Signs Last Vital Signs Temp Pulse Resp BP Pulse Ox 97.7 F 98 H 20 117/70 100 10/12/18 02:59 10/12/18 02:59 10/12/18 02:59 10/12/18 02:59 10/12/18 02:59
== END 2018-10-12 04:04 | disposition left against medical advice (07) ==
LOC: JER 02:50
DX: Z53.21 Procedure and treatment not carried out due to patient leaving prior to being seen by health care provider (principal)
CPT/HCPCS: 99281-25

== ENCOUNTER 2018-11-01 09:58 | Observation (INO) | payer OTHER ==
--- NOTE | 2018-11-01 10:23 | PDOC ---
History of Present Illness - General Chief Complaint: Pain, Acute Stated Complaint: COLD LEG Time Seen by Provider: 11/01/18 10:20 History Source: Patient Exam Limitations: No Limitations - History of Present Illness Initial Comments: 58 yo F w a pmh of HTN, HLD, asthma, cholelithiasis s/p cholecystectomy, HIV on ART w a CD4 count of 1210 in July, DM presents to the ER sent from the wound care center by Dr. Guzmán to be admitted to Med/Surg in the hospital. Dr. Guzmán wrote a note stating to "Please admit to medical team. pt went to [facility] - had angiogram on Sunday, then signed out AMA. Now she is coming into the hospital with an ischemic right foot." Dr. Guzmán has asked to start the patient on Heprain and make her NPO. He states the patient will need an angiogram. Dr. Guzmán also states the foot has been like this since Sunday. PCP: Desirae Hernandez HIV doc: Jossie Jimenes Vascular: Dr. Guzmán PSH: Cholecystectomy Allergies: Fish containing products. Social Hx: Former smoker, states she stopped one month prior. Denies alcohol or other substance usage. Past History - Past Medical History Allergies/Adverse Reactions: Allergies Allergy/AdvReac Type Severity Reaction Status Date / Time Fish Containing Products Allergy Verified 11/01/18 10:16 Home Medications: Ambulatory Orders Insulin Glargine,Hum.rec.anlog [Toujeo Solostar] 35 unit SQ HS 12/19/17 Albuterol Sulfate Inhaler - [Ventolin HFA Inhaler -] 2 puff IH Q6H PRN inhaler 04/26/18 Gabapentin [Neurontin -] 800 mg PO BID capsule 04/26/18 Insulin Sliding Scale [Novolog Vial Sliding Scale -] 1 vial SQ ACHS units 04/26 Bictegrav/Emtricit/Tenofov Ala [Biktarvy 50-200-25 mg Tablet] 1 each PO DAILY # 30 tablet 07/25/18 Clopidogrel Bisulfate [Plavix -] 75 mg PO DAILY 07/25/18 Nicotine Patch [Nicoderm Patch -] 1 patch TD DAILY #30 patch 10/07/18 Bupropion HCl [Bupropion Xl] 300 mg PO AM #30 tab.er.24h 10/30/18 Duloxetine HCl 30 mg PO AM #30 capsule. 10/30/18 Zolpidem Tartrate [Ambien] 10 mg PO HS #30 tablet MDD 1 10/30/18 Anemia: Yes Asthma: Yes Cancer: No Cardiac Disorders: Yes (cardiac stent x2, [place] 2014) CVA: No COPD: Yes CHF: No Dementia: No Diabetes: Yes (left foot drop) GI Disorders: No Disorders: No HTN: No Hypercholesterolemia: No Kidney Stones: Yes Liver Disease: No Psychiatric Problems: Yes (ANXIETY.) Seizures: No Thyroid Disease: No - Surgical History Abdominal Surgery: No Appendectomy: No Cardiac Surgery: Yes (2 stents) Cholecystectomy: Yes Lung Surgery: No Neurologic Surgery: No Orthopedic Surgery: Yes (right wrist,right ankle,left knee replacement,right elbow 2008; ) - Immunization History Immunization Up to Date: Yes - Suicide/Smoking/Psychosocial Hx Smoking History: Current every day smoker Have you smoked in the past 12 months: No Number of Cigarettes Smoked Daily: 1 If you are a former smoker, when did you quit?: 06/01/2018 Cigars Per Day: 0 Information on smoking cessation initiated: No 'Breaking Loose' booklet given: 03/14/18 Hx Alcohol Use: No Drug/Substance Use Hx: No Substance Use Type: None Hx Substance Use Treatment: No Review of Systems - Review of Systems Able to Perform ROS?: Yes Comments:: CONSTITUTIONAL: Absent: fever, no chills, no fatigue EYES: Absent: visual changes ENT: Absent: ear pain, no sore throat CARDIOVASCULAR: Absent: chest pain, no palpitations RESPIRATORY: Absent: cough, no SOB GI: Absent: abdominal pain, no nausea, no vomiting, no constipation, no diarrhea GENITOURINARY: Absent: dysuria, no frequency, no hematuria MUSKULOSKELETAL: Absent: back pain, no arthralgia, no myalgia SKIN: Absent: rash NEURO: Absent: headache *Physical Exam - Vital Signs Last Vital Signs Temp Pulse Resp BP Pulse Ox 97.4 F L 95 H 16 132/85 100 11/01/18 10:12 11/01/18 10:12 11/01/18 10:12 11/01/18 10:12 11/01/18 10:12 - Physical Exam Comments: RIGHT LEG: Cold, 1+ pulses, severe Pain to touch, pain with any ROM. GENERAL: Well-appearing, well-nourished. Moderate distress. HEENT: Normocephalic, atraumatic. PERRL, EOM intact. CARDIOVASCULAR: Tachycardic rate. Normal S1, S2. Regular rhythm. PULMONARY: No evidence of respiratory distress. Lungs clear to auscultation bilaterally. No wheezing, rales or rhonchi. ABDOMEN: Soft, non-distended, non-tender. EXTREMITIES: Normal ROM in all four extremities. No gross deformities. SKIN: Warm, dry. No rash NEUROLOGICAL: No focal neurological deficits. ED Treatment Course - LABORATORY CBC & Chemistry Diagram: 11/01/18 10:49 11/01/18 10:49 Medical Decision Making - Medical Decision Making 58 yo F w a pmh of HTN, HLD, asthma, cholelithiasis s/p cholecystectomy, HIV on ART w a CD4 count of 1210 in July, DM presents to the ER sent from the wound care center by Dr. Guzmán to be admitted to Med/Surg in the hospital. Dr. Guzmán wrote a note stating to "Please admit to medical team. pt went to [facility] - had angiogram on Sunday, then signed out AMA. Now she is coming into the hospital with an ischemic right foot." Dr. Guzmán has asked to start the patient on Heprain and make her NPO. He states the patient will need an angiogram. Dr. Guzmán also states the foot has been like this since Sunday. VS: WNL DDx IBNLT: Ischemic foot Plan: Labs, IV hydration, analgesia, NPO, admit to OR *DC/Admit/Observation/Transfer Diagnosis at time of Disposition: PVD (peripheral vascular disease), PAD (peripheral artery disease), Ischemic leg, Leg pain, Ischemic foot - Discharge Dispostion Condition at time of disposition: Guarded Decision to Admit order: Yes - Referrals - Patient Instructions - Post Discharge Activity
[2018-11-01] MEDS ORDERED: morphine CARPU-JECT 4 MG/1 ML DISP.SYRIN IVPUSH ONE (10:35)
--- NOTE | 2018-11-01 10:38 | PDOC ---
Attending Attestation - Resident Resident Name: Eleazar Hutchins - ED Attending Attestation I have performed the following: I have examined & evaluated the patient, The case was reviewed & discussed with the resident, I agree w/resident's findings & plan, Exceptions are as noted - HPI HPI: 11/01/18 10:53 Ms Guerrero is a 58 yo F h/o HTN, HLD, asthma, cholelithiasis s/p cholecystectomy , HIV on ART w a CD4 count of 1210 in July, DM presents to the ER sent from the [facility] care center by Dr. Guzmán to be admitted for right foot ischemia. No fevers or chills. Pt has noted symptoms for the past 3 days Pt reports severe pain PCP: Desirae Hernandez PMH: as above PSH: Cholecystectomy Allergies: Fish containing products. Social Hx: Former smoker, states she stopped one month prior. Denies alcohol or other substance usage. - Physicial Exam PE: 11/01/18 10:54 GENERAL: The patient is in no acute distress, tearful. ENT: Ears normal, nares patent, oropharynx clear without exudates. Moist mucous membranes. NECK: Normal range of motion, supple LUNGS: Breath sounds equal, clear to auscultation bilaterally. No wheezes, and no crackles. HEART:Regular rate and rhythm, normal S1 and S2 without murmur, rub or gallop. ABDOMEN: Soft, nontender, normoactive bowel sounds. EXTREMITIES: RIGHT FOOT: cool, unable to palpate pulses, sensation diminished NEUROLOGICAL: Cranial nerves II through XII grossly intact. Normal speech. No focal neurological deficits. SKIN: Warm, Dry, normal turgor, no rashes or lesions noted. 11/01/18 11:06 - Medical Decision Making 11/01/18 11:06 58 yo F presenting for right foot pain, ischemia WIll do: Basic labs Morphine Abx Admit
[2018-11-01] MEDS ORDERED: PIPERACILLIN/TAZOB 4.5 GM 4.5 GM in DEXTROSE 5%-WATER 100 ML IVPB ONE (10:39)
[2018-11-01] MEDS ORDERED: morphine SULFATE 4 MG/ML VIAL ONE (10:44)
[2018-11-01] MEDS ORDERED: PIPERACILLIN/TAZOB 4.5 GM 4.5 GM/100 ML BAG IVPB ONE (10:56)
[2018-11-01 11:07] LABS: BASO % 0.5 % (0-2.0); EOS % 0.8 % (0-4.5); HEMATOCRIT 40.8 % (32.4-45.2); HEMOGLOBIN 13.2 GM/dL (10.7-15.3); LYMPH % 22.6 % (8-40); MCH 26.8 pg (25.7-33.7); MCHC 32.3 g/dl (32.0-36.0); MEAN CELL VOLUME 82.8 fl (80-96); MEAN PLT VOLUME 9.4 fl (7.5-11.1); MONO % 5.7 % (3.8-10.2); NEUT % 70.4 % (42.8-82.8); PLATELET COUNT 184 K/MM3 (134-434); RBC 4.93 M/mm3 (3.60-5.2); RDW 17.2 % (11.6-15.6); WHITE BLOOD COUNT 12.2 K/mm3 (4.0-10.0)
[2018-11-01 11:48] LABS: ALBUMIN 3.7 g/dl (3.4-5.0); ALK PHOS 166 U/L (45-117); ANION GAP 6 MMOL/L (8-16); BILIRUBIN,TOTAL 0.3 mg/dL (0.2-1); BLOOD UREA NITROGEN 15 mg/dL (7-18); CALCIUM 9.8 mg/dL (8.5-10.1); CHLORIDE 98 mmol/L (98-107); CO2 26 mmol/L (21-32); CREATININE 1.2 mg/dL (0.55-1.3); POTASSIUM 4.8 mmol/L (3.5-5.1); SGOT/AST 19 U/L (15-37); SGPT/ALT 28 U/L (13-61); SODIUM 131 mmol/L (136-145)
[2018-11-01 11:55] LABS: GLUCOSE,RANDOM 402 mg/dL (74-106)
[2018-11-01 12:41] LABS: INR 1.24 (0.83-1.09); PROTHROMBIN TIME (PATIENT) 14.7 SEC (9.7-13.0)
[2018-11-01] MEDS ORDERED: HEPARIN NA (PORCINE) 5,000 UNITS/ML 1ML VIAL ONE (12:51)
--- NOTE | 2018-11-01 12:56 | HP ---
CHIEF COMPLAINT: PCP: HISTORY OF PRESENT ILLNESS: ER course was notable for: (1) (2) (3) Recent Travel: PAST MEDICAL HISTORY: PAST SURGICAL HISTORY: Social History: Smoking: Alcohol: Drugs: Family History: Allergies Fish Containing Products Allergy (Verified 11/01/18 10:16) Pt reports fish allergy HOME MEDICATIONS: Home Medications Medication Instructions Recorded Insulin Glargine,Hum.rec.anlog 35 unit SQ HS 12/19/17 [Toujeo Solostar] Albuterol Sulfate Inhaler - 2 puff IH Q6H PRN inhaler 04/26/18 [Ventolin HFA Inhaler -] Gabapentin [Neurontin -] 800 mg PO BID capsule 04/26/18 Insulin Sliding Scale [Novolog 1 vial SQ ACHS units 04/26/18 Vial Sliding Scale -] Bictegrav/Emtricit/Tenofov Ala 1 each PO DAILY #30 tablet 07/25/18 [Biktarvy 50-200-25 mg Tablet] Clopidogrel Bisulfate [Plavix -] 75 mg PO DAILY 07/25/18 Nicotine Patch [Nicoderm Patch -] 1 patch TD DAILY #30 patch 10/07/18 Bupropion HCl [Bupropion Xl] 300 mg PO AM #30 tab.er.24h 10/30/18 Duloxetine HCl 30 mg PO AM #30 capsule.dr 10/30/18 Zolpidem Tartrate [Ambien] 10 mg PO HS #30 tablet MDD 1 10/30/18 REVIEW OF SYSTEMS CONSTITUTIONAL: Absent: fever, chills, diaphoresis, generalized weakness, malaise, loss of appetite, weight change HEENT: Absent: rhinorrhea, nasal congestion, throat pain, throat swelling, difficulty swallowing, mouth swelling, ear pain, eye pain, visual changes CARDIOVASCULAR: Absent: chest pain, syncope, palpitations, irregular heart rate, lightheadedness , peripheral edema RESPIRATORY: Absent: cough, shortness of breath, dyspnea with exertion, orthopnea, wheezing, stridor, hemoptysis GASTROINTESTINAL: Absent: abdominal pain, abdominal distension, nausea, vomiting, diarrhea, constipation, melena, hematochezia GENITOURINARY: Absent: dysuria, frequency, urgency, hesitancy, hematuria, flank pain, genital pain MUSCULOSKELETAL: Absent: myalgia, arthralgia, joint swelling, back pain, neck pain SKIN: Absent: rash, itching, pallor HEMATOLOGIC/IMMUNOLOGIC: Absent: easy bleeding, easy bruising, lymphadenopathy, frequent infections ENDOCRINE: Absent: unexplained weight gain, unexplained weight loss, heat intolerance, cold intolerance NEUROLOGIC: Absent: headache, focal weakness or paresthesias, dizziness, unsteady gait, seizure, mental status changes, bladder or bowel incontinence PSYCHIATRIC: Absent: anxiety, depression, suicidal or homicidal ideation, hallucinations. PHYSICAL EXAMINATION Vital Signs - 24 hr 11/01/18 10:12 Temperature 97.4 F L Pulse Rate 95 H Respiratory 16 Rate Blood Pressure 132/85 O2 Sat by Pulse 100 Oximetry (%) GENERAL: Awake, alert, and fully oriented, in no acute distress. HEAD: Normal with no signs of trauma. EYES: Pupils equal, round and reactive to light, extraocular movements intact, sclera anicteric, conjunctiva clear. No lid lag. EARS, NOSE, THROAT: Ears normal, nares patent, oropharynx clear without exudates. Moist mucous membranes. NECK: Normal range of motion, supple without lymphadenopathy, JVD, or masses. LUNGS: Breath sounds equal, clear to auscultation bilaterally. No wheezes, and no crackles. No accessory muscle use. HEART: Regular rate and rhythm, normal S1 and S2 without murmur, rub or gallop. ABDOMEN: Soft, nontender, not distended, normoactive bowel sounds, no guarding, no rebound, no masses. No hepatomegaly or splenomegaly. MUSCULOSKELETAL: Normal range of motion at all joints. No bony deformities or tenderness. No CVA tenderness. UPPER EXTREMITIES: 2+ pulses, warm, well-perfused. No cyanosis. No clubbing. No peripheral edema. LOWER EXTREMITIES: 2+ pulses, warm, well-perfused. No calf tenderness. No peripheral edema. NEUROLOGICAL: Cranial nerves II-XII intact. Normal speech. Normal gait. PSYCHIATRIC: Cooperative. Good eye contact. Appropriate mood and affect. SKIN: Warm, dry, normal turgor, no rashes or lesions noted, normal capillary refill. Laboratory Results - last 24 hr 11/01/18 11/01/18 11/01/18 10:45 10:49 10:49 WBC 12.2 H RBC 4.93 Hgb 13.2 Hct 40.8 MCV 82.8 MCH 26.8 MCHC 32.3 RDW 17.2 H Plt Count 184 MPV 9.4 Absolute Neuts (auto) 8.6 H Neutrophils % 70.4 Lymphocytes % 22.6 Monocytes % 5.7 Eosinophils % 0.8 Basophils % 0.5 Nucleated RBC % 0 PT with INR 14.70 H INR 1.24 H PTT (Actin FS) 37.0 H Sodium Potassium Chloride Carbon Dioxide Anion Gap BUN Creatinine Creat Clearance w eGFR Random Glucose Calcium Total Bilirubin AST ALT Alkaline Phosphatase Total Protein Albumin Blood Type Antibody Screen 11/01/18 11/01/18 10:49 10:49 WBC RBC Hgb Hct MCV MCH MCHC RDW Plt Count MPV Absolute Neuts (auto) Neutrophils % Lymphocytes % Monocytes % Eosinophils % Basophils % Nucleated RBC % PT with INR INR PTT (Actin FS) Sodium 131 L Potassium 4.8 Chloride 98 Carbon Dioxide 26 Anion Gap 6 L BUN 15 Creatinine 1.2 Creat Clearance w eGFR 46.47 Random Glucose 402 H* Calcium 9.8 Total Bilirubin 0.3 AST 19 ALT 28 Alkaline Phosphatase 166 H Total Protein 8.0 Albumin 3.7 Blood Type B POSITIVE Antibody Screen Negative ASSESSMENT/PLAN:
[2018-11-01] MEDS ORDERED: ceFAZolin SODIUM 1 GM VIAL IVPB ONE (13:00)
[2018-11-01] MEDS ORDERED: ONDANSETRON 4 MG/2 ML VIAL IVPUSH PRN ×3 (13:53→16:14)
[2018-11-01] MEDS ORDERED: LIDOCAINE HCL 1%, 10 MG/ML (20ML VIAL) NR ONE (14:00)
--- NOTE | 2018-11-01 14:29 | OP ---
Operative Note - Note: Operative Date: 11/01/18 Pre-Operative Diagnosis: Right lower extremity ischemia Operation: Aortogram, RLE angiogram, SFA angioplasty Findings: stent occlusion Post-Operative Diagnosis: Same as Pre-op Surgeon: Gabriel Guzmán Anesthesia: Fractional Estimated Blood Loss (mls): 20 Operative Report Dictated: Yes
[2018-11-01] MEDS ORDERED: HYDROmorphone HCl 2 MG/ML VIAL ONE (14:33)
[2018-11-01] MEDS: HYDROmorphone HCl 2 MG/ML VIAL IVPUSH ONE ×3 (14:45→17:36)
--- NOTE | 2018-11-01 14:57 | PN ---
Teaching Attending Note Name of Resident: Mamie Evans ATTENDING PHYSICIAN STATEMENT I saw and evaluated the patient. I reviewed the resident's note and discussed the case with the resident. I agree with the resident's findings and plan as documented. SUBJECTIVE:58 year old woman with a history of type 2 DM, CAD with stent, HTN, hyperlipidemia, PAD with bilateral SFA stents, left popliteal artery occlusion with compartment syndrome requiring fasciotomy, COPD, stage 3 CKD, anemia, HIV on HARRT sent to ER from wound clinic for cold R foot. as per sign out has had symptoms for past 3 days. was at [facility] on Sunday and had angio done but signed out AMA. went to OR for balloon angioplasty. seeing patient post -procedure and is drowsy from sedation. denies CP, SOb, fever, chills, does still report R foot pain OBJECTIVE: Last Vital Signs Temp Pulse Resp BP Pulse Ox 97.4 F L 95 H 16 132/85 100 11/01/18 10:12 11/01/18 10:12 11/01/18 10:12 11/01/18 10:12 11/01/18 10:12 General lethargic but easily arrousable to verbal stimuli CV S1 S2 RRR no murmur/rub/gallop Lungs CTA B/L no wheezing/rales/rhonchi Abdomen soft NT/ND Extremities R foot is cold, +DP pulse ASSESSMENT AND PLAN: 58 year old woman with a history of type 2 DM, CAD with stent, HTN, hyperlipidemia, PAD with bilateral SFA stents, left popliteal artery occlusion with compartment syndrome requiring fasciotomy, COPD, stage 3 CKD, anemia, HIV on HARRT sent to ER from wound care center for cold R foot with known +angio 5 days ago and went for emergent balloon angioplasty 1. R foot arterial ischemia- Medicine admission. went to OR for emergent balloon angioplasty. can start Xarelto in 6H, further recommendations per vascular surgery. pain control. no indication for further abx. will hold abx 2. Hperglycemia- will re-start home diabetic medications. BGM and ISS 3. HTN- cont home medication 4. CAD s/p stent 2014-was sent to [facility] 06/2018 for cath, unsure if stent was placed at that time and indication for plavix. 1st time plavix seen on med list is 07/2018 5. HIV- cont HARRT 6. will monitor overnight if remains stable anticipate discharge in the AM
[2018-11-01] MEDS ORDERED: HYDROmorphone HCl 2 MG/ML VIAL IVPUSH ONE (15:18)
[2018-11-01] MEDS ORDERED: ACETAMINOPHEN INJECTION 100 ML IVPB ONE (16:06)
[2018-11-01] MEDS: ACETAMINOPHEN 1000 MG/100 ML VIAL (NON FORMULARY) IVPB ONE ×2 (16:10→17:36)
[2018-11-01] MEDS ORDERED: oxyCODONE HCL 5 MG TABLET PO PRN (16:14)
[2018-11-01] MEDS ORDERED: RIVAROXABAN 20 MG TABLET PO SCH (18:00)
[2018-11-01 18:20] VITALS: BMI 30.4
[2018-11-01] MEDS: oxyCODONE HCL 5 MG TABLET PO PRN ×2 (18:27→23:17)
[2018-11-01] MEDS: LACTATED RINGERS SOLUTION 1,000 ML IV SCH (18:29)
--- NOTE | 2018-11-01 18:36 | HP ---
CHIEF COMPLAINT: Cold, painful right leg PCP: Dr. Smith HISTORY OF PRESENT ILLNESS: Pt. is a 58 y.o. F presenting for right lower extremity poiklothermia and pain that started from Sunday. Pt. states she developed spasms last Sunday and was afraid that she was developing compartment syndrome in her right leg as she had a previous event of compartment in her left leg in the past. EMS brought her to [facility] and was worked up. Pt. had MRI, X-ray and had angioplasty of the RLE. Pt. was told by the vascular surgeon there that she "had to switch to Coumadin from Xarelto," and did not like being told what to do. Pt. left AMA and walked out of the hospital. Later that day on Sunday she noticed that her RLE was cold and extremely painful so she called to set up an appointment here. ER course was notable for: (1)Labs, IV hydration, analgesia, (2) NPO, admit to OR (consult to Dr. Guzmán) (3) Recent Travel: No PAST MEDICAL HISTORY: HIV(CD4 of 1210 in July, viral load 180), HPV+, CAD(s/ p 2 stents and TX in 2014), IDDM, PVD, GERD, Neuropathy, and HLD PAST SURGICAL HISTORY: PCI x 2 stents (2014), R. wrist, R. ankle, L. TKR and R. Elbow surgery in 2008, fasciotomy of left calf. Social History: Smoking: Quit 1 month ago was 40 Pack year Alcohol: Denies Drugs: Denies Family History: Denies any Hx. of bleeding or clotting disorders Allergies Fish Containing Products Allergy (Verified 11/01/18 10:16) Pt reports fish allergy HOME MEDICATIONS: Home Medications Medication Instructions Recorded Insulin Glargine,Hum.rec.anlog 35 unit SQ HS 12/19/17 [Toujeo Solostar] Albuterol Sulfate Inhaler - 2 puff IH Q6H PRN inhaler 04/26/18 [Ventolin HFA Inhaler -] Gabapentin [Neurontin -] 800 mg PO BID capsule 04/26/18 Insulin Sliding Scale [Novolog 1 vial SQ ACHS units 04/26/18 Vial Sliding Scale -] Bictegrav/Emtricit/Tenofov Ala 1 each PO DAILY #30 tablet 07/25/18 [Biktarvy 50-200-25 mg Tablet] Clopidogrel Bisulfate [Plavix -] 75 mg PO DAILY 07/25/18 Nicotine Patch [Nicoderm Patch -] 1 patch TD DAILY #30 patch 10/07/18 Duloxetine HCl 30 mg PO AM #30 capsule. 10/30/18 Zolpidem Tartrate [Ambien] 10 mg PO HS #30 tablet MDD 1 10/30/18 Bupropion HCl [Wellbutrin Xl] 300 mg PO DAILY 11/01/18 Rivaroxaban [Xarelto -] 20 mg PO DAILY 11/01/18 REVIEW OF SYSTEMS CONSTITUTIONAL: Absent: fever, chills, diaphoresis, generalized weakness, malaise, loss of appetite, weight change HEENT: visual changes Absent: rhinorrhea, nasal congestion, throat pain, throat swelling, difficulty swallowing, mouth swelling, ear pain, eye pain, CARDIOVASCULAR: Absent: chest pain, syncope, palpitations, irregular heart rate, lightheadedness , peripheral edema RESPIRATORY: Absent: cough, shortness of breath, dyspnea with exertion, orthopnea, wheezing, stridor, hemoptysis GASTROINTESTINAL: Absent: abdominal pain, abdominal distension, nausea, vomiting, diarrhea, constipation, melena, hematochezia GENITOURINARY: Absent: dysuria, frequency, urgency, hesitancy, hematuria, flank pain, genital pain MUSCULOSKELETAL: Absent: myalgia, arthralgia, joint swelling, back pain, neck pain SKIN: itching Absent: rash, pallor HEMATOLOGIC/IMMUNOLOGIC: Absent: easy bleeding, easy bruising, lymphadenopathy, frequent infections ENDOCRINE: Absent: unexplained weight gain, unexplained weight loss, heat intolerance, cold intolerance NEUROLOGIC: Absent: headache, focal weakness or paresthesias, dizziness, unsteady gait, seizure, mental status changes, bladder or bowel incontinence PSYCHIATRIC: Absent: anxiety, depression, suicidal or homicidal ideation, hallucinations. PHYSICAL EXAMINATION Vital Signs - 24 hr 11/01/18 11/01/18 11/01/18 10:12 14:27 14:45 Temperature 97.4 F L 97. F L Pulse Rate 95 H 84 83 Respiratory 16 18 18 Rate Blood Pressure 132/85 142/73 123/104 H O2 Sat by Pulse 100 97 94 L Oximetry (%) 11/01/18 11/01/18 11/01/18 15:00 15:15 15:30 Temperature Pulse Rate 85 89 90 Respiratory 22 H 16 14 Rate Blood Pressure 102/85 127/90 111/74 O2 Sat by Pulse 98 97 99 Oximetry (%) 11/01/18 11/01/18 11/01/18 15:45 16:00 16:15 Temperature Pulse Rate 87 87 91 H Respiratory 18 18 16 Rate Blood Pressure 90/59 L 90/59 L 91/75 O2 Sat by Pulse 100 100 100 Oximetry (%) 11/01/18 11/01/18 11/01/18 16:30 16:45 18:15 Temperature 98.5 F 98.1 F Pulse Rate 92 H 92 H 81 Respiratory 18 16 20 Rate Blood Pressure 97/72 91/75 98/61 O2 Sat by Pulse 100 100 Oximetry (%) GENERAL: Awake, alert, and fully oriented, in no acute distress. HEAD: Normal with no signs of trauma. EYES: Pupils equal, round and reactive to light, extraocular movements intact, sclera anicteric, conjunctiva clear. EARS, NOSE, THROAT: Ears normal, nares patent, oropharynx clear without exudates. Moist mucous membranes. NECK: Normal range of motion, supple without lymphadenopathy, JVD, or masses; carotid bruit positive on right LUNGS: Breath sounds equal, clear to auscultation bilaterally. No wheezes, and no crackles. No accessory muscle use. HEART: Regular rate and rhythm, normal S1 and S2 without murmur ABDOMEN: Soft, nontender, not distended, normoactive bowel sounds, no guarding, no rebound MUSCULOSKELETAL: Normal range of motion at all joints. No bony deformities or tenderness. No CVA tenderness. UPPER EXTREMITIES: 2+ radial pulses, warm, well-perfused. No cyanosis. No clubbing. No peripheral edema. 5/5 upper extremity strength in proximal and distal muscles. Left elbow discoloration, Right elbow scar. LOWER EXTREMITIES: 2+ dorsal pedal pulses, warm, well-perfused. Right calf tenderness, none on left. No peripheral edema. 1/5 muscle strength in Left foot , 2/5 muscle strength in Right foot. Proximal LLE able to lift off bed for 5+ seconds, RLE unable to lift limb as high but able to lift for greater than 5 seconds. NEUROLOGICAL: Cranial nerves II-XII intact. Normal speech. Gait not assessed. Pt. states she has increased sensation on the right leg from the toes to the hips. Left calf medial and lateral surgical scars. PSYCHIATRIC: Cooperative. Good eye contact. Appropriate mood and affect. SKIN: Warm, dry, normal turgor, no rashes or lesions noted Laboratory Results - last 24 hr 11/01/18 11/01/18 11/01/18 10:45 10:49 10:49 WBC 12.2 H RBC 4.93 Hgb 13.2 Hct 40.8 MCV 82.8 MCH 26.8 MCHC 32.3 RDW 17.2 H Plt Count 184 MPV 9.4 Absolute Neuts (auto) 8.6 H Neutrophils % 70.4 Lymphocytes % 22.6 Monocytes % 5.7 Eosinophils % 0.8 Basophils % 0.5 Nucleated RBC % 0 PT with INR 14.70 H INR 1.24 H PTT (Actin FS) 37.0 H Sodium Potassium Chloride Carbon Dioxide Anion Gap BUN Creatinine Creat Clearance w eGFR Random Glucose Calcium Total Bilirubin AST ALT Alkaline Phosphatase Total Protein Albumin Blood Type Antibody Screen 11/01/18 11/01/18 10:49 10:49 WBC RBC Hgb Hct MCV MCH MCHC RDW Plt Count MPV Absolute Neuts (auto) Neutrophils % Lymphocytes % Monocytes % Eosinophils % Basophils % Nucleated RBC % PT with INR INR PTT (Actin FS) Sodium 131 L Potassium 4.8 Chloride 98 Carbon Dioxide 26 Anion Gap 6 L BUN 15 Creatinine 1.2 Creat Clearance w eGFR 46.47 Random Glucose 402 H* Calcium 9.8 Total Bilirubin 0.3 AST 19 ALT 28 Alkaline Phosphatase 166 H Total Protein 8.0 Albumin 3.7 Blood Type B POSITIVE Antibody Screen Negative Current Medications Bupropion HCl (Wellbutrin Xl -) 300 mg PO DAILY [facility] Clopidogrel Bisulfate (Plavix -) 75 mg PO DAILY [facility] Duloxetine HCl (Cymbalta -) 30 mg PO AM [facility] Gabapentin (Neurontin -) 800 mg PO BID [facility] Lactated Ringer's (Lactated Ringers Solution) 1,000 mls @ 75 mls/hr IV ASDIR [facility] Last Admin: 11/01/18 18:29 Dose: 75 mls/hr Insulin Aspart (Novolog Vial Sliding Scale -) 1 vial SQ ACHS [facility]; Protocol Non-Formulary Medication (Bictegrav/Emtricit/Tenofov Ala) 1 each PO DAILY@2130 [facility] Oxycodone HCl (Roxicodone -) 10 mg PO Q4H PRN PRN Reason: PAIN LEVEL 6-10 Last Admin: 11/01/18 18:27 Dose: 10 mg Oxycodone HCl (Roxicodone -) 5 mg PO Q4H PRN PRN Reason: PAIN LEVEL 1-5 Rivaroxaban (Xarelto) 20 mg PO DAILY@1800 JENNIFER Last Admin: 11/01/18 18:27 Dose: 20 mg Zolpidem Tartrate (Ambien -) 10 mg PO HS PRN PRN Reason: INSOMNIA ASSESSMENT/PLAN: Pt. is a 58 y.o. F w/ PMHx. of HIV(CD4 of 1210 in July, viral load 180), HPV+ , CAD(s/p 2 stents and TX in 2014), IDDM, PVD, GERD, Neuropathy, and HLD presenting for right lower extremity poiklothermia and pain that started from Sunday. #Right Lower Extremity ischemia 2/2 PVD POD#0 s/p Balloon angioplasty Vascular Surgeon Consult (Dr. Guzmán) appreciated, will f/u recommendations Oxycodone 5mg and 10mg with pain scale restart Xarelto and Plavix Q2H Neurovascualr checks Cefazolin give azucena-operatively #Hyperglycemia ACHS BGM ACHS ISS c/w home Insulin long-acting equivalent #HIV c/w Biktarvy #Diabetic Neuropathy c/w home medications: Wellbutrin, Gabapentin, Duloxetine #FEN LR @ 75cc/hr monitor and replete electrolytes as needed Diabetic Diet #DVT Ppx. c/w Xarelto Visit type - Emergency Visit Emergency Visit: No - New Patient This patient is new to me today: Yes Date on this admission: 11/05/18 - Critical Care Critical Care patient: No
[2018-11-01] MEDS: GABAPENTIN 400 MG CAPSULE (FP) PO SCH (21:27)
[2018-11-01] MEDS ORDERED: PATIENT'S OWN MEDICATION (NON-FORMULARY) (Bictegrav/Emtricit/Tenofov Ala 1 EACH) PO SCH (21:30)
[2018-11-01] MEDS ORDERED: ZOLPIDEM TARTRATE 5 MG TABLET PO PRN (22:00)
[2018-11-01] MEDS ORDERED: INSULIN SLIDING SCALE (NOVOLOG) 1 VIAL SQ SCH ×2 (22:00)
[2018-11-01] MEDS: INSULIN SLIDING SCALE (NOVOLOG) 1 VIAL SQ SCH (22:20)
[2018-11-02] MEDS: LACTATED RINGERS SOLUTION 1,000 ML IV SCH (05:02)
[2018-11-02] MEDS: INSULIN SLIDING SCALE (NOVOLOG) 1 VIAL SQ SCH ×2 (06:04→10:36)
[2018-11-02 06:26] LABS: BASO % 0.2 % (0-2.0); EOS % 1.3 % (0-4.5); HEMOGLOBIN 10.7 GM/dL (10.7-15.3); LYMPH % 31.5 % (8-40); MCH 26.4 pg (25.7-33.7); MCHC 32.4 g/dl (32.0-36.0); MEAN CELL VOLUME 81.4 fl (80-96); MEAN PLT VOLUME 9.5 fl (7.5-11.1); MONO % 6.9 % (3.8-10.2); NEUT % 60.1 % (42.8-82.8); PLATELET COUNT 151 K/MM3 (134-434); RBC 4.05 M/mm3 (3.60-5.2); WHITE BLOOD COUNT 6.8 K/mm3 (4.0-10.0)
[2018-11-02 06:44] LABS: INR 1.79 (0.83-1.09); PROTHROMBIN TIME (PATIENT) 21.2 SEC (9.7-13.0)
[2018-11-02 06:51] LABS: ANION GAP 6 MMOL/L (8-16); BLOOD UREA NITROGEN 14 mg/dL (7-18); CALCIUM 8.8 mg/dL (8.5-10.1); CHLORIDE 102 mmol/L (98-107); CO2 29 mmol/L (21-32); CREATININE 1.1 mg/dL (0.55-1.3); GLUCOSE,RANDOM 163 mg/dL (74-106); MAGNESIUM 1.9 mg/dL (1.8-2.4); PHOSPHOROUS 4.4 mg/dL (2.5-4.9); POTASSIUM 4.1 mmol/L (3.5-5.1); SODIUM 138 mmol/L (136-145)
[2018-11-02] MEDS ORDERED: DULoxetine HCL 30 MG CAPSULE.DR (FP) PO SCH (07:00)
--- NOTE | 2018-11-02 07:57 | OP ---
DATE OF OPERATION: 11/01/2018 PREOPERATIVE DIAGNOSIS: Right lower extremity ischemia. POSTOPERATIVE DIAGNOSIS: Right lower extremity ischemia. PROCEDURE: Aortogram, right lower extremity angiogram, superficial femoral artery angioplasty. SURGEON: Gabriel Wilder DO ANESTHESIA: Fractional. BLOOD LOSS: 20 mL. The patient is a 58-year-old female who comes in with right lower extremity ischemia since Sunday. Patient was admitted at [facility] over this past weekend and had an angioplasty performed there on Sunday. On Sunday, she continued to have pain and signed out AMA and comes to see us today here in the office. When she came to the office, her right leg was cool with some mottling, and it was decided that she would need to be admitted. Once admitted, we brought her up to the operating room. Patient was consented for the procedure, understanding all risks, benefits, and alternatives and was then taken to the operating room. Once in the operating room, was laid on the operative table in supine manner, and the areas of the right and left groin were prepped and draped in a sterile surgical manner. We then injected 10 mL of lidocaine 1% over the left common femoral artery. We then took our micropuncture needle, punctured the left common femoral artery. Micropuncture wire was inserted, and a traditional 5-Macedonian sheath was inserted. We then placed a floppy guidewire up into the aorta, followed by Omni Flush catheter. We then shot an aortogram by hand injection showing that the aorta and iliac arteries were without any disease. We then went up and over using a 0.035 stiff guidewire and placed the wire in the right common femoral artery and brought our Omni Flush catheter down. We then shot an angiogram of the right lower extremity, showing that there was disease in the common femoral. The stents were all occluded all the way down to the popliteus, and patient had 1-vessel runoff into the foot. At this point, we place daily 0.035 stiff guidewire and selectively cannulated into the stents. We removed our Omni Flush catheter. We placed a 6 x 45 crossover sheath; 5000 units of IV heparin were administered to the patient. We then brought our wire down using the Quick-Cross catheter and placed a wire into the AT. We then went ahead and used a 6 x 200 balloon, balloon, and performed angioplasty of the entire SFA, the distal SFA, the stents, and the common femoral artery. Completion angiogram now showed that the stents were patent, and there was good brisk flow all the way down into the foot with the main runoff being the PT. At this point, no more intervention was needed. Patient had been given 5000 units of IV heparin during the case. We brought our sheath up and over. StarClose device was successfully deployed in the left common femoral artery. Pressure was held for 5 minutes. After there was no more bleeding, area was wet and dried, and Dermabond was placed. Patient tolerated the procedure, no complications. Patient transferred to PACU in stable condition. GABRIEL WILDER DO [id number]
[2018-11-02] MEDS ORDERED: PT OWN MED DRAWER 7, Y5N ONE (08:50)
[2018-11-02] MEDS: GABAPENTIN 400 MG CAPSULE (FP) PO SCH (09:34)
[2018-11-02] MEDS ORDERED: CLOPIDOGREL BISULFATE 75 MG TABLET (FP) PO SCH (10:00)
[2018-11-02] MEDS ORDERED: INSULIN (NOVOLOG) ASPART 100 UNITS/ML 10ML VIAL ONE (10:30)
[2018-11-02 11:25] LABS: HEMATOCRIT 33.7 % (32.4-45.2); HEMOGLOBIN 10.9 GM/dL (10.7-15.3); MCH 26.7 pg (25.7-33.7); MCHC 32.4 g/dl (32.0-36.0); MEAN CELL VOLUME 82.4 fl (80-96); MEAN PLT VOLUME 9.6 fl (7.5-11.1); PLATELET COUNT 139 K/MM3 (134-434); RBC 4.08 M/mm3 (3.60-5.2); RDW 16.9 % (11.6-15.6); WHITE BLOOD COUNT 6.9 K/mm3 (4.0-10.0)
--- NOTE | 2018-11-02 11:57 | DS ---
Physical Exam: SUBJECTIVE: Patient seen and examined. asymptomatic. some pain in the leg but improved since procedure. some bleeding at groin. denies Cp, SOB, fever, chills , N/V/?CD OBJECTIVE: Vital Signs Period Temp Pulse Resp BP Sys/Cota Pulse Ox Last 24 Hr 97. F-98.5 F 76-94 14-22 90-142/59-104 94-100 PHYSICAL EXAM GENERAL: The patient is awake, alert, and fully oriented, in no acute distress. HEAD: Normal with no signs of trauma. EYES: PERRL, extraocular movements intact, sclera anicteric, conjunctiva clear. ENT: Ears normal, nares patent, oropharynx clear without exudates, moist mucous membranes. NECK: Trachea midline, full range of motion, supple. LUNGS: Breath sounds equal, clear to auscultation bilaterally, no wheezes, no crackles, no accessory muscle use. HEART: Regular rate and rhythm, S1, S2 without murmur, rub or gallop. ABDOMEN: Soft, nontender, nondistended, normoactive bowel sounds, no guarding, no rebound, no hepatosplenomegaly, no masses. EXTREMITIES: RLE 1+ pulse, foot is warm, groin wiht tension dressing some dried blood noted on bandage NEUROLOGICAL: Cranial nerves II through XII grossly intact. Normal speech, gait not observed. PSYCH: Normal mood, normal affect. SKIN: Warm, dry, normal turgor, no rashes or lesions noted. LABS Laboratory Results - last 24 hr 11/01/18 11/01/18 11/01/18 10:45 10:49 10:49 WBC RBC Hgb Hct MCV MCH MCHC RDW Plt Count MPV Absolute Neuts (auto) Neutrophils % Lymphocytes % Monocytes % Eosinophils % Basophils % Nucleated RBC % PT with INR 14.70 H INR 1.24 H Sodium Potassium Chloride Carbon Dioxide Anion Gap BUN Creatinine Creat Clearance w eGFR POC Glucometer Random Glucose 402 H* Calcium Phosphorus Magnesium Blood Type B POSITIVE Antibody Screen Negative 11/01/18 11/02/18 11/02/18 21:48 06:00 06:00 WBC 6.8 RBC 4.05 Hgb 10.7 Hct 33.0 D MCV 81.4 MCH 26.4 MCHC 32.4 RDW 17.0 H Plt Count 151 MPV 9.5 Absolute Neuts (auto) 4.1 Neutrophils % 60.1 Lymphocytes % 31.5 D Monocytes % 6.9 Eosinophils % 1.3 Basophils % 0.2 Nucleated RBC % 0 PT with INR 21.20 H INR 1.79 H Sodium Potassium Chloride Carbon Dioxide Anion Gap BUN Creatinine Creat Clearance w eGFR POC Glucometer 309 Random Glucose Calcium Phosphorus Magnesium Blood Type Antibody Screen 11/02/18 11/02/18 11/02/18 06:00 06:03 10:23 WBC RBC Hgb Hct MCV MCH MCHC RDW Plt Count MPV Absolute Neuts (auto) Neutrophils % Lymphocytes % Monocytes % Eosinophils % Basophils % Nucleated RBC % PT with INR INR Sodium 138 Potassium 4.1 Chloride 102 Carbon Dioxide 29 Anion Gap 6 L BUN 14 Creatinine 1.1 Creat Clearance w eGFR 51.38 POC Glucometer 180 288 Random Glucose 163 H Calcium 8.8 Phosphorus 4.4 Magnesium 1.9 Blood Type Antibody Screen 11/02/18 10:54 WBC 6.9 RBC 4.08 Hgb 10.9 Hct 33.7 MCV 82.4 MCH 26.7 MCHC 32.4 RDW 16.9 H Plt Count 139 MPV 9.6 Absolute Neuts (auto) Neutrophils % Lymphocytes % Monocytes % Eosinophils % Basophils % Nucleated RBC % PT with INR INR Sodium Potassium Chloride Carbon Dioxide Anion Gap BUN Creatinine Creat Clearance w eGFR POC Glucometer Random Glucose Calcium Phosphorus Magnesium Blood Type Antibody Screen HOSPITAL COURSE: Date of Admission:11/01/18 Date of Discharge: 11/02/18 Admitting diagnosis: RLE arterial ischemia Procedure SFA Balloon angioplasty 11/01/18 Pre hospital course 58 y.o. F presenting for right lower extremity poiklothermia and pain that started from Sunday. Pt. states she developed spasms last Sunday and was afraid that she was developing compartment syndrome in her right leg as she had a previous event of compartment in her left leg in the past. EMS brought her to [facility] and was worked up. Pt. had MRI, X-ray and had angioplasty of the RLE. Pt. was told by the vascular surgeon there that she "had to switch to Coumadin from Xarelto," and did not like being told what to do. Pt. left AMA and walked out of the hospital. Later that day on Sunday she noticed that her RLE was cold and extremely painful so she called to set up an appointment here. Subsequent hospital course pt went emergent for angioplasty. tolerated procedure well. anticoagulation with Xarelto re-started. Hgb in AM was stable. d/c home Minutes to complete discharge: 40 Discharge Summary Reason For Visit: ISCHEMIA OF LEFT LOWER EXTREMITY Current Active Problems Ischemic foot (Acute) Ischemic leg (Acute) Leg pain (Acute) PAD (peripheral artery disease) (Chronic) PVD (peripheral vascular disease) (Chronic) Condition: Improved - Instructions Diet, Activity, Other Instructions: You had a balloon angioplasty yesterday due to a blockage in your leg. Your home medication were resumed Follow up with Dr Guzmán in 2 weeks for further workup Follow up with your cardilogist. ensure that you are to continue your plavix medication Return to the hospital if you develop chest pain or develop bleeding Referrals: Gabriel Guzmán DO [Staff Physician] - Disposition: HOME - Home Medications Comprehensive Discharge Medication List: Ambulatory Orders Insulin Glargine,Hum.rec.anlog [Toujeo Solostar] 35 unit SQ HS 12/19/17 Albuterol Sulfate Inhaler - [Ventolin HFA Inhaler -] 2 puff IH Q6H PRN inhaler 04/26/18 Gabapentin [Neurontin -] 800 mg PO BID capsule 04/26/18 Insulin Sliding Scale [Novolog Vial Sliding Scale -] 1 vial SQ ACHS units 04/26 Clopidogrel Bisulfate [Plavix -] 75 mg PO DAILY 07/25/18 Duloxetine HCl 30 mg PO AM #30 capsule. 10/30/18 Zolpidem Tartrate [Ambien] 10 mg PO HS #30 tablet MDD 1 10/30/18 Bictegrav/Emtricit/Tenofov Ala [Biktarvy 50-200-25 mg Tablet] 1 each PO DAILY@ 2130 11/01/18 Bupropion HCl [Wellbutrin Xl] 300 mg PO DAILY 11/01/18 Nicotine Patch [Nicoderm Patch -] 21 mg TD DAILY 11/01/18 Rivaroxaban [Xarelto -] 20 mg PO DAILY@1800 11/01/18 This patient is new to me today: Yes Date on this admission: 11/02/18 Emergency Visit: No Critical Care patient: No - Discharge Referral Referred to [facility] Med P.C.: Yes Physician Referral: Gabriel Guzmán DO ([facility])
[2018-11-02 14:37] VITALS: BP 124/73; PULSE 95; TEMP 97.9
== END 2018-11-02 16:04 | disposition home or self-care (01) ==
LOC: JOR 09:58 → JERBED 12:53 → INTOOBSV 12:53 → J8W 16:55
PROVIDERS: ADMIT Internal Medicine; ATTEND Internal Medicine
PROC: 3E03329 Introduction of Other Anti-infective into Peripheral Vein, Percutaneous Approach (ICD-10-PCS; 2018-11-01)
PROC: 3E0337Z Introduction of Electrolytic and Water Balance Substance into Peripheral Vein, Percutaneous Approach (ICD-10-PCS; 2018-11-01)
PROC: 3E013GC Introduction of Other Therapeutic Substance into Subcutaneous Tissue, Percutaneous Approach (ICD-10-PCS; 2018-11-01)
PROC: 047K3ZZ Dilation of Right Femoral Artery, Percutaneous Approach (ICD-10-PCS; principal; 2018-11-01 13:00)
DX: M62.262 Nontraumatic ischemic infarction of muscle, left lower leg (principal); I73.9 Peripheral vascular disease, unspecified; T82.858A Stenosis of other vascular prosthetic devices, implants and grafts, initial encounter; I99.8 Other disorder of circulatory system; I10 Essential (primary) hypertension; E78.5 Hyperlipidemia, unspecified; Z21 Asymptomatic human immunodeficiency virus [HIV] infection status; J44.9 Chronic obstructive pulmonary disease, unspecified; E11.65 Type 2 diabetes mellitus with hyperglycemia; I25.10 Atherosclerotic heart disease of native coronary artery without angina pectoris; I25.2 Old myocardial infarction; M21.372 Foot drop, left foot; Z87.442 Personal history of urinary calculi; Z95.5 Presence of coronary angioplasty implant and graft; Z79.4 Long term (current) use of insulin
CPT/HCPCS: 36415; 76000-TC-FY; 80048; 80053; 82962; 83735; 84100; 85025; 85027; 85610; 85730; 86850; 86900; 86901; 94760; 96365; 96372; 96375; 99285-25; G0378; G0463-25; J0131; J1644

== ENCOUNTER 2018-11-06 05:52 | Emergency (ER) | payer OTHER ==
[2018-11-06 06:26] VITALS: BMI 30.6
[2018-11-06] MEDS ORDERED: diazePAM CARPU-JECT 10 MG/2 ML DISP.SYRIN IVPUSH ONE (06:41)
[2018-11-06] MEDS ORDERED: ACETAMINOPHEN 1000 MG/100 ML VIAL (NON FORMULARY) IVPB ONE (06:57)
[2018-11-06] MEDS ORDERED: ACETAMINOPHEN INJECTION 100 ML IVPB ONE (07:57)
[2018-11-06 08:17] LABS: HEMATOCRIT 36.2 % (32.4-45.2); HEMOGLOBIN 11.9 GM/dL (10.7-15.3); MCH 26.7 pg (25.7-33.7); MCHC 32.8 g/dl (32.0-36.0); MEAN CELL VOLUME 81.3 fl (80-96); MEAN PLT VOLUME 8.9 fl (7.5-11.1); PLATELET COUNT 221 K/MM3 (134-434); RBC 4.45 M/mm3 (3.60-5.2); RDW 16.2 % (11.6-15.6); WHITE BLOOD COUNT 8.4 K/mm3 (4.0-10.0)
[2018-11-06 08:56] LABS: ALBUMIN 3.5 g/dl (3.4-5.0); ALK PHOS 154 U/L (45-117); ANION GAP 6 MMOL/L (8-16); BILIRUBIN,TOTAL 0.3 mg/dL (0.2-1); BLOOD UREA NITROGEN 19 mg/dL (7-18); CALCIUM 9.7 mg/dL (8.5-10.1); CHLORIDE 99 mmol/L (98-107); CO2 28 mmol/L (21-32); CREATININE 1.4 mg/dL (0.55-1.3); POTASSIUM 3.8 mmol/L (3.5-5.1); SGOT/AST 13 U/L (15-37); SGPT/ALT 19 U/L (13-61); SODIUM 133 mmol/L (136-145); TOT PROT 7.8 g/dl (6.4-8.2)
[2018-11-06 09:16] LABS: GLUCOSE,RANDOM 46 mg/dL (74-106)
--- NOTE | 2018-11-06 09:36 | PDOC ---
Documentation entered by Renetta Chavira SCRIBE, acting as scribe for Yonas Mccloud MD. Yonas Mccloud MD: This documentation has been prepared by the Cait marie Victoria, SCRIBE, under my direction and personally reviewed by me in its entirety. I confirm that the documentation accurately reflects all work, treatment, procedures, and medical decision making performed by me. *Physical Exam - Vital Signs Last Vital Signs Temp Pulse Resp BP Pulse Ox 97.6 F 110 H 18 118/61 100 11/06/18 05:52 11/06/18 05:52 11/06/18 05:52 11/06/18 05:52 11/06/18 05:52 - Physical Exam Comments: 11/06/18 08:10 ED Treatment Course - LABORATORY CBC & Chemistry Diagram: 11/06/18 08:00 11/06/18 08:00 - ADDITIONAL ORDERS Additional order review: Laboratory Results 11/06/18 08:00 Sodium 133 L Potassium 3.8 Chloride 99 Carbon Dioxide 28 Anion Gap 6 L BUN 19 H Creatinine 1.4 H Creat Clearance w eGFR 38.90 Calcium 9.7 Total Bilirubin 0.3 AST 13 L ALT 19 Alkaline Phosphatase 154 H Creatine Kinase 93 Troponin I < 0.02 Total Protein 7.8 Albumin 3.5 11/06/18 08:00 RBC 4.45 MCV 81.3 MCHC 32.8 RDW 16.2 H MPV 8.9 - RADIOLOGY Radiology Studies Ordered: Category Date Time Status DUPLEX ART. LOWER COMPL US [US] Stat Ultrasound 11/06/18 07:45 Ordered DUPLEX VASCUL US-2LEGS [US] Stat Ultrasound 11/06/18 07:45 Ordered Radiograph Interpretation: 11/06/18 11:34 Bilateral lower extremity vascular study as reviewed by Dr. Alcazar reports no evidence of DVT. Lower extremity duplex arterial scan as reviewed by Dr. Alcazar reports patent bilateral SFA stents, abnormal flow patterns bilaterally, left greater than right suggesting inflow pathology - Medications Given in the ED: ED Medications Discontinued Medications Generic Name Dose Route Start Last Admin Trade Name Freq PRN Reason Stop Dose Admin Acetaminophen 1,000 mg 11/06/18 06:57 11/06/18 08:08 Ofirmev Injection - IVPB 11/06/18 06:58 1,000 mg ONCE ONE Administration Diazepam 5 mg 11/06/18 06:41 11/06/18 08:08 Valium Injection - IVPUSH 11/06/18 06:42 Not Given ONCE ONE *DC/Admit/Observation/Transfer Diagnosis at time of Disposition: Diabetic neuropathy - Discharge Dispostion Disposition: HOME Condition at time of disposition: Improved Decision to Admit order: No - Referrals Referrals: Jossie Jimenes NP [Primary Care Provider] - Kentrell Williamson MD [Staff Physician] - Gabriel Guzmán DO [Staff Physician] - - Patient Instructions Printed Discharge Instructions: DI for Foot Pain Additional Instructions: Follow up with Dr. Guzmán within 1 week Also, follow up with pain management within 1-2 weeks. A referral is included Return to the emergency department if you have any new, worsening, or concerning symptoms - Post Discharge Activity - Attestations Physician Attestion: 11/06/18 13:46 I, Dr. Yonas Mccloud MD, attest that this document has been prepared under my direction and personally reviewed by me in its entirety. I further attest, that it accurately reflects all work, treatment, procedures and medical decision -making performed by me. History of Present Illness - General Chief Complaint: Muscle Cramping Stated Complaint: GENERALIZED MUSCLE SPASMS Time Seen by Provider: 11/06/18 06:39 - History of Present Illness Initial Comments: 11/06/18 08:12 Care received at [address] Eric, pending labs, re-eval, dispo. Pt re-evaluated, in summary: 58 year old female with past medical history of HIV (CD4 of 1210 in July, viral load 180), GERD, hypertension, hyperlipidemia, CAD (s/p [place] s/p stenting x2 in 2004, on Xarelto, Plavix, and ASA) insulin dependent diabetes, PVD, neuropathy, left drop foot (2015 s/p fasciotomy) who presents to the ED with complaints of body aches/spasms that began yesterday. Patient reports the pain is a cramping sensation that migrates. It often begins in her bilateral lower extremities and travels upward to her back, chest and arms. Patient currently reports cramping in her back only. Overnight, she states the pain in her calves b/l woke her up and she began to breath rapidly causing painful spasms in her hands and feet. She states she was unable to move any of her extremities at the time prompting her to come to the ED. At this point, she denies any spasms and is able to move all of her extremities. She reports on 11/01/18, she had a right lower extremity angiogram/angioplasty for a right cool leg and since then has felt generally fatigued. Pt is on xarelto and plavix which she states she has not missed any doses of. Denies any fever, chills, NVD, cough, shortness of breath, or urinary complaints. Denies recent travel. Vascular Surgeon: Dr. Gabriel Guzmán Exam: resting, sleeping comfortably in NAD RRR, no MRG CTAP, no WRC NTND, no distention. Normoactive BS no midline spinal ttp L groin incision site c/d/i, +older appearing ecchymosis surrounding incision but no erythema, ttp, discahrge. b/l LE distally warm, well perfused, normal color +L foot drop (pt reports since 2014) RLE wth normal strength and sensation 58yo F hx PVD, recent RLE angiogram 11/01 presents to the ED with diffuse body cramping, initially in LE b/l transitioning up to back and chest and now in the ED present only in the back. R foot appears warm and well perfused, wihth normal coloring and normal strength and sensation. Pt denies pain in RLE. LLE with chronic foot drop, but also warm, well perfused. Clinically, symptoms unlikely to represent limb ischemia as no clinical evidence of ischemia, pt is pain free in LE, and has been compliant with xarelto and plavix. Plan to check electrolytes, other basic labs, obtain arterial and venous US, and discuss with Dr. Guzmán. 11/06/18 10:35 Labs wnl (glucose 40s, given juice, now in 200s) US pending 11/06/18 11:37 US vasc neg for DVT US arterial with patent b/l SFA stents and "abnormal flow patterns" Clinically, pt's feet are warm and pulses are dopplerable b/l Dr. Guzmán paged to discuss findings, awaiting call back Likely neuropathic pain in light of DM, pain currently in her hands b/l Pt given morphine for pain control as acetaminophen has worn off 11/06/18 12:[address] Guzmán, US reviewed REcommends that as long as stents are patent and clinically, pt's feet are warm and well perfused, that this is not likely a vascular issue At this time, pt has no pain Her extremities are warm and well perfused She requests DC home Pt advised to f/u with vascular, neuro, and pain management I discussed the physical exam findings, ancillary test results and final diagnoses with the patient. I answered all of the patient's questions. The patient was satisfied with the care received and felt comfortable with the discharge plan and treatment plan. The patient will call their primary care physician within 24 hours to arrange follow-up and will return to the Emergency Department with any new, persistent or worsening symptoms.
--- NOTE | 2018-11-06 10:45 | EKG ---
Test Reason : Blood Pressure : / mmHG Vent. Rate : 096 BPM Atrial Rate : 096 BPM P-R Int : 152 ms QRS Dur : 086 ms QT Int : 366 ms P-R-T Axes : 061 066 057 degrees QTc Int : 462 ms NORMAL SINUS RHYTHM NORMAL ECG WHEN COMPARED WITH ECG OF 04-MAY-2018 19:39, NONSPECIFIC T WAVE ABNORMALITY NO LONGER EVIDENT IN ANTERIOR LEADS Confirmed by LILLIAN ZAMORA, REUBEN ([id number]) on 11/06/2018 10:44:37 AM Referred By: Confirmed By:REUBEN SNYDER MD
[2018-11-06] MEDS ORDERED: morphine CARPU-JECT 4 MG/1 ML DISP.SYRIN IVPUSH ONE (11:21)
[2018-11-06] MEDS ORDERED: morphine SULFATE 4 MG/ML VIAL ONE (11:34)
[2018-11-06 13:37] VITALS: BP 105/63; PULSE 88; TEMP 98.4
== END 2018-11-06 14:07 | disposition home or self-care (01) ==
LOC: JER 05:52
PROC: 3E033NZ Introduction of Analgesics, Hypnotics, Sedatives into Peripheral Vein, Percutaneous Approach (ICD-10-PCS; principal; 2018-11-06)
DX: E11.42 Type 2 diabetes mellitus with diabetic polyneuropathy (principal); Z79.4 Long term (current) use of insulin; I25.10 Atherosclerotic heart disease of native coronary artery without angina pectoris; Z95.5 Presence of coronary angioplasty implant and graft; I25.2 Old myocardial infarction; Z21 Asymptomatic human immunodeficiency virus [HIV] infection status; I73.9 Peripheral vascular disease, unspecified; F41.9 Anxiety disorder, unspecified; A63.0 Anogenital (venereal) warts; M21.379 Foot drop, unspecified foot; Z86.2 Personal history of diseases of the blood and blood-forming organs and certain disorders involving the immune mechanism; Z87.09 Personal history of other diseases of the respiratory system
CPT/HCPCS: 36415; 80053; 82550; 82962; 84484; 85027; 93005; 93010; 93925-TC; 93970-TC; 99284-25; J0131

== ENCOUNTER → 2018-12-04 | Emergency (ER) | payer OTHER | END | disposition left against medical advice (07) | LOC: JERFT 18:41 ==

== ENCOUNTER 2019-02-15 11:40 | Emergency (ER) | payer OTHER ==
[2019-02-15 11:49] VITALS: TEMP 97.4; BMI 31.1
[2019-02-15] MEDS ORDERED: morphine CARPU-JECT 2 MG/1 ML DISP.SYRIN SQ ONE (11:57)
[2019-02-15] MEDS ORDERED: morphine SULFATE 4 MG/ML VIAL ONE (12:16)
--- NOTE | 2019-02-15 13:16 | PDOC ---
History of Present Illness - General Chief Complaint: Pain Stated Complaint: LEG PAIN Time Seen by Provider: 02/15/19 11:54 History Source: Patient Exam Limitations: No Limitations - History of Present Illness Initial Comments: 02/15/19 12:09 59 y/o female presents to the ED with c/o barney leg pain x 4 days after returning from [place]. Patient denies any skin discoloration, sensory changes to area lower extremity edema or weakness of the lower extremities. Patient states history of fem pop bypass performed by Dr. Guzmán a few years ago. Pt denies any nerve pain or complication since procedure. Timing/Duration: constant Severity: moderate Associated Symptoms: reports: denies symptoms Past History - Travel Traveled outside of the country in the last 30 days: No Close contact w/someone who was outside of country & ill: No - Past Medical History Allergies/Adverse Reactions: Allergies Allergy/AdvReac Type Severity Reaction Status Date / Time Fish Containing Products Allergy Verified 02/15/19 11:41 Home Medications: Ambulatory Orders Insulin Glargine,Hum.rec.anlog [Toujeo Solostar] 8 unit SQ HS 12/19/17 Gabapentin [Neurontin -] 800 mg PO BID capsule 04/26/18 Insulin Sliding Scale [Novolog Vial Sliding Scale -] 1 vial SQ ACHS units 04/26 Rivaroxaban [Xarelto -] 20 mg PO DAILY@1800 11/01/18 traMADol HCL [Ultram -] 50 mg PO Q12H PRN #8 tablet MDD 2 tablets 11/06/18 Albuterol 0.083% Nebulizer Dulce [Ventolin 0.083% Nebulizer Soln -] 1 neb NEB Q6H PRN #120 vial 11/28/18 Albuterol Sulfate Inhaler - [Ventolin HFA Inhaler -] 1 - 2 puff IH Q6H PRN #1 inhaler 11/28/18 Bictegrav/Emtricit/Tenofov Ala [Biktarvy 50-200-25 mg Tablet] 1 each PO DAILY # 30 tablet 11/28/18 Budesonide/Formeterol Fumarate [SYMBICORT 80/4.5mcg -] 2 inh PO BID #1 cannister 11/28/18 Fluticasone Prop 0.05% Nasal [Flonase -] 1 - 2 spray NS DAILY #1 spray.pump Loratadine [Claritin -] 10 mg PO DAILY PRN #30 tablet 11/28/18 Aspirin [Aspirin EC] 81 mg PO DAILY 12/26/18 Bupropion HCl [Bupropion Xl] 300 mg PO AM #30 tab.er.24h 01/16/19 Duloxetine HCl [Cymbalta] 30 mg PO AM #30 capsule. 01/16/19 Zolpidem Tartrate [Ambien] 10 mg PO HS #30 tablet MDD 1 01/16/19 Anemia: Yes Asthma: Yes Cancer: No Cardiac Disorders: Yes (cardiac stent x2, [place] 2014) CVA: No COPD: No CHF: No Dementia: No Diabetes: No GI Disorders: No Disorders: No HTN: No Hypercholesterolemia: Yes Kidney Stones: Yes Liver Disease: No Psychiatric Problems: Yes (ANXIETY.) Seizures: No Thyroid Disease: No Other medical history: vascular issues "they dont knkow whats wrong with me" - Surgical History Abdominal Surgery: No Appendectomy: No Cardiac Surgery: Yes (2 stents) Cholecystectomy: Yes Lung Surgery: No Neurologic Surgery: No Orthopedic Surgery: Yes (right wrist,right ankle,left knee replacement,right elbow 2008; ) - Immunization History Immunization Up to Date: Yes - Suicide/Smoking/Psychosocial Hx Smoking History: Current every day smoker Have you smoked in the past 12 months: No Number of Cigarettes Smoked Daily: 20 If you are a former smoker, when did you quit?: 06/01/2018 Cigars Per Day: 0 Information on smoking cessation initiated: No 'Breaking Loose' booklet given: 03/14/18 Hx Alcohol Use: No Drug/Substance Use Hx: No Substance Use Type: None Hx Substance Use Treatment: No Patient Lives Alone: No Lives with/in: spouse/SO Review of Systems - Review of Systems Able to Perform ROS?: Yes Constitutional: No: Symptoms Reported HEENTM: No: Symptoms Reported Respiratory: No: Symptoms reported Cardiac (ROS): No: Symptoms Reported ABD/GI: No: Symptoms Reported : No: Symptoms Reported Musculoskeletal: Yes: Muscle Pain (barney calves) Integumentary: No: Symptoms Reported Neurological: No: Symptoms reported Endocrine: No: Symptoms Reported Hematologic/Lymphatic: No: Symptoms Reported *Physical Exam - Vital Signs Last Vital Signs Temp Pulse Resp BP Pulse Ox 97.4 F L 99 H 18 129/78 99 02/15/19 11:41 02/15/19 11:41 02/15/19 11:41 02/15/19 11:41 02/15/19 12:40 - Physical Exam General Appearance: Yes: Nourished, Appropriately Dressed. No: Apparent Distress HEENT: positive: EOMI, JAYDON. negative: Pale Conjunctivae Neck: positive: Normal Thyroid Respiratory/Chest: positive: Lungs Clear, Normal Breath Sounds. negative: Respiratory Distress, Accessory Muscle Use Cardiovascular: positive: Regular Rhythm, Regular Rate. negative: Murmur Gastrointestinal/Abdominal: positive: Soft. negative: Tenderness Extremity: positive: Normal Inspection, Normal Range of Motion, Tender ( hypersensitivity to bilateral shins right greater than left beginning at bilateral ankles extending to the distal aspect of bilateral patellas) Integumentary: positive: Normal Color, Warm, Moist. negative: Swelling, Ecchymosis Neurologic: positive: Motor Strength 5/5 (ambulatory). negative: Normal Mood/ Affect (anxious) ED Treatment Course - RADIOLOGY Radiology Studies Ordered: Category Date Time Status DUPLEX VASCUL US-2LEGS [US] Stat Ultrasound 02/15/19 11:57 Ordered - Medications Given in the ED: ED Medications Discontinued Medications Generic Name Dose Route Start Last Admin Trade Name Freq PRN Reason Stop Dose Admin Morphine Sulfate 4 mg 02/15/19 11:57 02/15/19 12:15 Morphine Injection - SQ 02/15/19 11:58 4 mg ONCE ONE Administration Medical Decision Making - Medical Decision Making 02/15/19 12:04 CC: Bilateral leg pain 4 days since returning from [place]. Patient with history of femoropopliteal bypass years ago to left lower extremity patient is followed by Dr. Guzmán patient denies history of PE or DVT in the past Exam: Patient will bilateral anterior lower extremity tenderness without positive Homans or decreased pulses Plan: Morphine for pain, bilateral lower extremity duplex 02/15/19 14:07 Negative DVT of bilateral lower extremities. Surgical removal of the right and left greater saphenous vein noted 02/15/19 14:12 patient states feeling better. Will discharge patient home and recommend follow-up with her vascular surgeon and/or PMD *DC/Admit/Observation/Transfer Diagnosis at time of Disposition: Leg pain - Discharge Dispostion Disposition: HOME Condition at time of disposition: Improved - Referrals Referrals: Desirae Hernandez MD [Primary Care Provider] - Gabriel Guzmán DO [Staff Physician] - - Patient Instructions Printed Discharge Instructions: DI for Leg Pain Additional Instructions: I recommend providing gentle massage to area and continue to ambulate. Please also follow up with your surgeon and her PMD. If needed you may take Percocet for discomfort otherwise take extra strength Tylenol or 600 mg of Motrin - Post Discharge Activity
[2019-02-15 14:46] VITALS: BP 120/80; PULSE 78
== END 2019-02-15 14:45 | disposition home or self-care (01) ==
LOC: JER 11:40
PROC: 3E013NZ Introduction of Analgesics, Hypnotics, Sedatives into Subcutaneous Tissue, Percutaneous Approach (ICD-10-PCS; principal; 2019-02-15)
DX: M79.604 Pain in right leg (principal); M79.605 Pain in left leg; I25.2 Old myocardial infarction; Z95.5 Presence of coronary angioplasty implant and graft; F17.210 Nicotine dependence, cigarettes, uncomplicated; E78.00 Pure hypercholesterolemia, unspecified
CPT/HCPCS: 93970-TC; 96372; 99283-25

== ENCOUNTER 2019-07-08 06:56 | Day surgery (SDC) | payer OTHER ==
[2019-07-07 12:36] VITALS: BMI 32.8
[2019-07-08] MEDS ORDERED: MIDAZOLAM HCL 2 MG/2 ML SINGLE DOSE VIAL ONE ×2 (08:25)
[2019-07-08 13:54] VITALS: BP 107/66; PULSE 88; TEMP 98
--- NOTE | 2019-07-10 16:10 | PATH ---
Surgical Pathology Report Patient Name: ARMEN ACOSTA [facility]. Rec. #: [id number] /Age/Gender: 1960 (Age: 59) / F Account: [id number] Location: ASU-ENDOSCOPY Taken: 07/08/2019 Received: 07/08/2019 Reported: 07/10/2019 Physicians: Jewel Pastor D.O. Specimen(s) Received A: CECUM AND RIGHT COLON B: TRANSVERSE COLON C: DESCENDING COLON D: SIGMOID COLON E: RECTUM Clinical History Screening, diarrhea Postoperative diagnosis: Diarrhea Final Diagnosis A. CECUM AND RIGHT COLON, BIOPSY: COLONIC MUCOSA WITH FOCALLY REACTIVE LYMPHOID AGGREGATE. SEE COMMENT. B. TRANSVERSE COLON, BIOPSY: COLONIC MUCOSA WITH FOCAL REACTIVE LYMPHOID AGGREGATE. SEE COMMENT. C. DESCENDING COLON, BIOPSY: COLONIC MUCOSA WITH NO SIGNIFICANT PATHOLOGIC CHANGE. SEE COMMENT. D. SIGMOID COLON, BIOPSY: COLONIC MUCOSA WITH FOCAL REACTIVE LYMPHOID AGGREGATE. SEE COMMENT. E. RECTUM, BIOPSY: COLONIC MUCOSA WITH NO SIGNIFICANT PATHOLOGIC CHANGE. SEE COMMENT. Comment: No histologic evidence of intraepithelial lymphocytosis or thickening of subepithelial basement membrane in the above specimens. Warthin-Starry stain performed (block B, C, D, E) at [place], [place] ([id number]) interpreted at [facility] is negative for spirochetes. Electronically Signed Bernard Kruger M.D. Gross Description A. Received in formalin, labeled "biopsy cecum and right colon" are 2 tipt[place], irregular portions of soft tissue measuring 0.4 and 0.5 cm. in greatest dimension. The specimens are submitted in toto in one cassette. B. Received in formalin, labeled "biopsy transverse colon" are 3 [place], irregular portions of soft tissue ranging from 0.1-0.3 cm. in greatest dimension. The specimens are submitted in toto in one cassette. C. Received in formalin, labeled "biopsy descending colon" are 3 t[place], irregular portions of soft tissue ranging from 0.1-0.4 cm. in greatest dimension. The specimens are submitted in toto in one cassette. D. Received in formalin, labeled "biopsy sigmoid colon" are 2 tipt[place], irregular portions of soft tissue averaging 0.2 cm. in greatest dimension. The specimens are submitted in toto in one cassette. E. Received in formalin, labeled "biopsy rectum" are 2 tipton, irregular portions of soft tissue averaging 0.2 cm. in greatest dimension. The specimens are submitted in toto in one cassette. 07/08/2019 [facility]07/08/2019
== END 2019-07-08 10:15 | disposition home or self-care (01) ==
LOC: JASU-ENDO 06:56
PROVIDERS: ATTEND Internal Medicine Gastroenterology
PROC: 0DBE8ZX Excision of Large Intestine, Via Natural or Artificial Opening Endoscopic, Diagnostic (ICD-10-PCS; principal; 2019-07-08 08:15)
DX: R19.7 Diarrhea, unspecified (principal); K64.8 Other hemorrhoids; E11.9 Type 2 diabetes mellitus without complications; I10 Essential (primary) hypertension; Z21 Asymptomatic human immunodeficiency virus [HIV] infection status
CPT/HCPCS: 82962

== ENCOUNTER 2019-07-15 09:34 | Day surgery (SDC) | payer OTHER ==
--- NOTE | 2019-07-16 11:35 | PATH ---
Surgical Pathology Report Patient Name: ARMEN ACOSTA [facility]. Rec. #: [id number] /Age/Gender: 1960 (Age: 59) / F Account: [id number] Location: U-ENDOSCOPY Taken: 07/15/2019 Received: 07/15/2019 Reported: 07/16/2019 Physicians: Jewel Pastor D.O. Specimen(s) Received A: DUODENAL BULB B: BODY H.PYLORI Clinical History Abdominal pain Postoperative diagnosis: Gastritis Final Diagnosis A. DUODENUM, SECOND PORTION AND BULB, BIOPSY: DUODENAL MUCOSA WITH NO PATHOLOGIC CHANGES. NO HISTOLOGIC EVIDENCE OF GLUTEN SENSITIVE ENTEROPATHY (CELIAC SPRUE) IDENTIFIED. B. STOMACH, ANGULARIS AND BODY, BIOPSY: GASTRIC FUNDIC MUCOSA WITH MODERATE CHRONIC GASTRITIS AND AREA OF ULCERATION. IMMUNOSTAIN FOR H. PYLORI IS NEGATIVE. Electronically Signed Dwayne Regan M.D. Gross Description A. Received in formalin, labeled "biopsy duodenal bulb and second portion of duodenum" are 5 tipt[place], irregular portions of soft tissue averaging 0.2 cm. in greatest dimension. The specimens are submitted in toto in one cassette. B. Received in formalin, labeled "biopsy angularis" are 2 tipt[place], irregular portions of soft tissue measuring 0.5 and 0.6 cm. in greatest dimension. The specimens are submitted in toto in one cassette. 07/15/2019 [facility]07/15/2019
== END 2019-07-15 11:54 | disposition home or self-care (01) ==
LOC: JASU-ENDO 09:34
PROC: 0DB68ZX Excision of Stomach, Via Natural or Artificial Opening Endoscopic, Diagnostic (ICD-10-PCS; principal; 2019-07-15 10:45)
CPT/HCPCS: 88305-TC; 88342-TC

== ENCOUNTER 2020-05-21 04:20 | Day surgery (SDC) | payer OTHER ==
[2020-05-20 18:47] VITALS: BMI 26.4
[2020-05-21] MEDS ORDERED: DEXAMETHASONE SOD PHOSPHATE/PF 10 MG/ML SDV ONE (07:13)
[2020-05-21] MEDS ORDERED: TRIAMCINOLONE ACET 40MG/1ML VIAL ONE (07:13)
[2020-05-21] MEDS ORDERED: BUPIVACAINE HCL/PF 0.75% 10 ML VIAL ONE (07:14)
[2020-05-21] MEDS ORDERED: LIDOCAINE HCL/PF 1% SDV 5ML VIAL ONE (07:14)
[2020-05-21] MEDS ORDERED: SODIUM CHLORIDE 0.9% P/F 10 ML VIAL IJ ONE (07:35)
[2020-05-21] MEDS ORDERED: IOHEXOL 180 MG/1 ML ML IJ ONE (10:51)
[2020-05-21] MEDS ORDERED: LIDOCAINE 1% P/F 10 MG/ML VIAL INF ONE (10:51)
[2020-05-21] MEDS ORDERED: DEXAMETHASONE SOD PHOSPHATE 10 MG/1 ML VIAL IVPUSH ONE (10:52)
[2020-05-21 11:40] VITALS: BP 138/81; PULSE 81; TEMP 97
== END 2020-05-21 11:40 | disposition home or self-care (01) ==
LOC: JASU-SURG 04:20
PROVIDERS: ATTEND Pain Medicine Pain Medicine
PROC: 3E0R33Z Introduction of Anti-inflammatory into Spinal Canal, Percutaneous Approach (ICD-10-PCS; 2020-05-21)
PROC: 3E0R3BZ Introduction of Anesthetic Agent into Spinal Canal, Percutaneous Approach (ICD-10-PCS; principal; 2020-05-21 08:30)
DX: M54.16 Radiculopathy, lumbar region (principal)
CPT/HCPCS: J1100

== ENCOUNTER 2020-11-18 11:28 | Inpatient (IN) | payer BC, OTHER ==
[2020-11-18 11:40] VITALS: BMI 29.2
[2020-11-18] MEDS ORDERED: INSULIN (NOVOLOG) ASPART 100 UNITS/ML 10ML VIAL SQ ONE (12:28)
[2020-11-18] MEDS ORDERED: KETOROLAC TROMETHAMINE 15 MG/ML VIAL IVPUSH ONE (12:29)
[2020-11-18] MEDS ORDERED: LIDOCAINE 5% TOPICAL PATCH TP ONE (12:30)
[2020-11-18] MEDS ORDERED: SODIUM CHLORIDE 0.9% 1000 ML INFUS.BAG IV ONE (12:31)
[2020-11-18] MEDS ORDERED: LIDOCAINE 5% TOPICAL PATCH ONE ×2 (12:42→13:47)
[2020-11-18] MEDS ORDERED: KETOROLAC TROMETHAMINE 15 MG/ML VIAL ONE (12:42)
[2020-11-18] MEDS ORDERED: INSULIN SLIDING SCALE (NOVOLOG) 1 VIAL SQ ONE ×2 (12:45→21:39)
[2020-11-18 13:16] LABS: VENOUS BASE EXCESS 3.1 mmol/L (-2-2); VENOUS O2 SATURATION 46.5 % (70-80); VENOUS PCO2 47.8 mmHg (38-52); VENOUS PH 7.398 (7.310-7.410)
[2020-11-18 13:19] LABS: BASO % 0.4 % (0-2.0); EOS % 0.6 % (0-4.5); HEMATOCRIT 34.4 % (32.4-45.2); HEMOGLOBIN 11.2 GM/dL (10.7-15.3); LYMPH % 14.4 % (8-40); MCH 25.1 pg (25.7-33.7); MCHC 32.5 g/dl (32.0-36.0); MEAN CELL VOLUME 77.3 fl (80-96); MONO % 6.7 % (3.8-10.2); NEUT % 77.9 % (42.8-82.8); PLATELET COUNT 236 K/MM3 (134-434); RBC 4.45 M/mm3 (3.60-5.2); RDW 17.1 % (11.6-15.6); WHITE BLOOD COUNT 12.1 K/mm3 (4.0-10.0)
[2020-11-18 13:24] LABS: INR 1.16 (0.83-1.09); PROTHROMBIN TIME (PATIENT) 14.2 SEC (9.7-13.0)
[2020-11-18 13:27] LABS: ACTIVATED PTT 25.3 SECONDS (25.2-36.5); CALCIUM 9.6 mg/dL (8.5-10.1)
[2020-11-18 13:28] LABS: BLOOD UREA NITROGEN 21.8 mg/dL (7-18)
[2020-11-18 13:31] LABS: CREATININE 1.9 mg/dL (0.55-1.3)
[2020-11-18 13:32] LABS: BILIRUBIN,TOTAL 0.3 mg/dL (0.2-1)
[2020-11-18 14:45] LABS: EPI CELLS >36 /uL (0-25.1); HYALINE CASTS 2 /uL (0-3.1); PH,URINE 5.5 (5.0-8.0); URINE APPEARANCE CLEAR; URINE BACTERIA 830 /uL (0-1359); URINE BILIRUBIN NEGATIVE (NEGATIVE); URINE COLOR YELLOW; URINE GLUCOSE (UA) 3+ (NEGATIVE); URINE KETONE TRACE (NEGATIVE); URINE LEUK ESTERASE NEGATIVE (NEGATIVE); URINE NITRITE NEGATIVE (NEGATIVE); URINE PROTEIN 1+ (NEGATIVE); URINE RBC 8 /uL (0-23.9); URINE UROBILINOGEN 0.2 mg/dL (0.2-1.0); URINE WBC 20 /uL (0-25.8)
[2020-11-18] MEDS ORDERED: ASPIRIN 81 MG CHEWABLE TABLETS PO ONE (15:37)
[2020-11-18] MEDS ORDERED: CEFTRIAXONE 1,000 MG in DEXTROSE 5%-WATER - 50 ML IVPB ONE (17:04)
[2020-11-18] MEDS ORDERED: AZITHROMYCIN IVPB 500 MG in DEXTROSE 5%-WATER - 250 ML IVPB ONE (17:05)
[2020-11-18] MEDS ORDERED: ASPIRIN 81 MG CHEWABLE TABLETS ONE (17:29)
[2020-11-18] MEDS ORDERED: CEFTRIAXONE 1 GM/50 ML BAG ONE (17:30)
[2020-11-18] MEDS ORDERED: ACETAMINOPHEN 325 MG TABLET (FP) PO PRN (18:57)
[2020-11-18] MEDS ORDERED: SODIUM CHLORIDE 1,000 ML IV SCH (19:00)
[2020-11-18] MEDS ORDERED: AZITHROMYCIN IVPB 500 MG/250 ML BAG IVPB ONE (19:31)
[2020-11-18] MEDS ORDERED: HEPARIN NA (PORCINE) 5,000 UNITS/ML 1ML VIAL IVPUSH ONE (20:45)
[2020-11-18] MEDS ORDERED: HEPARIN NA (PORCINE) 5,000 UNITS/ML 1ML VIAL IVPUSH PRN ×2 (20:46)
[2020-11-18] MEDS ORDERED: HEPARIN - 25,000 UNIT in SODIUM CHLORIDE 495 ML IV SCH (21:00)
[2020-11-18] MEDS ORDERED: CLOPIDOGREL BISULFATE 75 MG TABLET (FP) ONE (21:38)
[2020-11-18] MEDS ORDERED: oxyCODONE HCL 5 MG TABLET ONE (21:38)
[2020-11-18] MEDS ORDERED: ATORVASTATIN CA 10 MG TABLET (FP) ONE (21:38)
[2020-11-18] MEDS ORDERED: NITROGLYCERIN 2% OINTMENT - 1GM PACKET TD ONE (21:38)
[2020-11-18] MEDS ORDERED: HEPARIN INFUSION - 25,000 UNITS/500 ML INFUS.BAG IVPB ONE (21:39)
[2020-11-18] MEDS ORDERED: HEPARIN NA (PORCINE) 5,000 UNITS/ML 1ML VIAL ONE (21:39)
[2020-11-18] MEDS ORDERED: ATORVASTATIN CA 10 MG TABLET (FP) PO SCH (22:00)
[2020-11-18] MEDS ORDERED: APIXABAN 5 MG TABLET PO SCH (22:00)
[2020-11-18] MEDS ORDERED: LIDOCAINE PATCH REMOVAL MC ONE (22:00)
[2020-11-18] MEDS: CLOPIDOGREL BISULFATE 75 MG TABLET (FP) PO SCH (22:22)
[2020-11-18] MEDS: FLUTICASONE PROP 0.05% 16 GM NASAL SPRAY NS SCH (22:23)
[2020-11-18] MEDS: NITROGLYCERIN 2% OINTMENT - 1GM PACKET TD SCH (22:24)
[2020-11-18] MEDS: INSULIN SLIDING SCALE (NOVOLOG) 1 VIAL SQ SCH (22:24)
[2020-11-18] MEDS: GABAPENTIN 400 MG CAPSULE PO SCH (22:24)
[2020-11-18] MEDS: oxyCODONE HCL 5 MG TABLET PO PRN (22:25)
[2020-11-18] MEDS: BICTEGRAV/EMTRICIT/TENOFOV (BIKTARVY) 50-200-25 MG TABLET PO SCH (22:56)
[2020-11-19] MEDS ORDERED: ACETAMINOPHEN 325 MG TABLET (FP) ONE (00:30)
[2020-11-19] MEDS ORDERED: oxyCODONE HCL 5 MG TABLET ONE (05:19)
[2020-11-19] MEDS: oxyCODONE HCL 5 MG TABLET PO PRN (05:23)
[2020-11-19] MEDS ORDERED: NITROGLYCERIN 2% OINTMENT - 1GM PACKET TD ONE (06:22)
[2020-11-19] MEDS: NITROGLYCERIN 2% OINTMENT - 1GM PACKET TD SCH (06:28)
[2020-11-19 06:55] LABS: CHLORIDE 102 mmol/L (98-107); SODIUM 134 mmol/L (136-145)
[2020-11-19 06:57] LABS: CALCIUM 8.6 mg/dL (8.5-10.1)
[2020-11-19 06:58] LABS: ALBUMIN 2.6 g/dl (3.4-5.0); ANION GAP 8 MMOL/L (8-16); BLOOD UREA NITROGEN 18.7 mg/dL (7-18); CO2 25 mmol/L (21-32); MAGNESIUM 2.3 mg/dL (1.8-2.4)
[2020-11-19 07:01] LABS: CREATININE 1.3 mg/dL (0.55-1.3); SGOT/AST 12 U/L (15-37); SGPT/ALT 8 U/L (13-61)
[2020-11-19 07:02] LABS: BILIRUBIN,TOTAL 0.3 mg/dL (0.2-1); TOT PROT 7.1 g/dl (6.4-8.2)
[2020-11-19 07:04] LABS: ALK PHOS 99 U/L (45-117); GLUCOSE,RANDOM 223 mg/dL (74-106); HEMATOCRIT 32.5 % (32.4-45.2); HEMOGLOBIN 10.6 GM/dL (10.7-15.3); MCH 25.5 pg (25.7-33.7); MCHC 32.5 g/dl (32.0-36.0); MEAN CELL VOLUME 78.3 fl (80-96); RBC 4.15 M/mm3 (3.60-5.2); RDW 16.8 % (11.6-15.6)
[2020-11-19 07:05] LABS: BASO % 0.3 % (0-2.0); EOS % 1.6 % (0-4.5); LYMPH % 19.2 % (8-40); MEAN PLT VOLUME 9.9 fl (7.5-11.1); MONO % 6.2 % (3.8-10.2); NEUT % 72.7 % (42.8-82.8); PLATELET COUNT 206 K/MM3 (134-434)
[2020-11-19] MEDS ORDERED: HEPARIN NA (PORCINE) 5,000 UNITS/ML 1ML VIAL ONE (07:29)
[2020-11-19 07:42] VITALS: TEMP 98.4
[2020-11-19] MEDS: INSULIN SLIDING SCALE (NOVOLOG) 1 VIAL SQ SCH (08:13)
[2020-11-19] MEDS ORDERED: ASPIRIN COATED 81 MG TABLET.EC ONE (08:45)
[2020-11-19] MEDS ORDERED: MULTIVITAMINS (DAILY MVI) TABLET (FP) ONE (08:45)
[2020-11-19] MEDS ORDERED: CEFTRIAXONE 1 GM/50 ML BAG ONE (08:46)
[2020-11-19] MEDS ORDERED: AZITHROMYCIN IVPB 500 MG/250 ML BAG IVPB ONE (08:46)
[2020-11-19] MEDS ORDERED: CLOPIDOGREL BISULFATE 75 MG TABLET (FP) ONE (08:46)
[2020-11-19] MEDS ORDERED: PANTOPRAZOLE 40 MG TABLET ONE (08:46)
[2020-11-19] MEDS: BICTEGRAV/EMTRICIT/TENOFOV (BIKTARVY) 50-200-25 MG TABLET PO SCH (09:03)
[2020-11-19] MEDS: GABAPENTIN 400 MG CAPSULE PO SCH (09:04)
[2020-11-19] MEDS: CLOPIDOGREL BISULFATE 75 MG TABLET (FP) PO SCH (09:04)
[2020-11-19] MEDS: FLUTICASONE PROP 0.05% 16 GM NASAL SPRAY NS SCH (09:04)
[2020-11-19] MEDS ORDERED: SODIUM CHLORIDE 250 ML IV STA (09:45)
[2020-11-19] MEDS ORDERED: morphine CARPU-JECT 2 MG/1 ML DISP.SYRIN IVPUSH ONE (09:54)
[2020-11-19] MEDS ORDERED: morphine SULFATE 4 MG/ML VIAL IVPUSH ONE (09:54)
[2020-11-19] MEDS ORDERED: MULTIVITAMINS (DAILY MVI) TABLET (FP) PO SCH (10:00)
[2020-11-19] MEDS ORDERED: AZITHROMYCIN IVPB 500 MG/250 ML BAG IVPB SCH (10:00)
[2020-11-19] MEDS ORDERED: ASPIRIN COATED 81 MG TABLET.EC PO SCH (10:00)
[2020-11-19] MEDS ORDERED: PANTOPRAZOLE 40 MG TABLET PO SCH (10:00)
[2020-11-19] MEDS ORDERED: CEFTRIAXONE 1 GM in DEXTROSE 5%-WATER - 50 ML IVPB SCH (10:00)
[2020-11-19] MEDS ORDERED: DULoxetine HCL 20 MG CAPSULE.DR PO SCH (10:00)
[2020-11-19] MEDS ORDERED: morphine SULFATE 4 MG/ML VIAL ONE (10:02)
[2020-11-19 11:14] VITALS: BP 109/65; PULSE 95
== END 2020-11-19 11:15 | disposition short-term general hospital (02) | DRG 280 ==
LOC: JER 11:28 → JERBED 13:56
PROVIDERS: ADMIT Internal Medicine; ATTEND Internal Medicine
DX: I21.4 Non-ST elevation (NSTEMI) myocardial infarction (principal); J18.9 Pneumonia, unspecified organism; A41.89 Other specified sepsis; N17.9 Acute kidney failure, unspecified; I25.10 Atherosclerotic heart disease of native coronary artery without angina pectoris; Z21 Asymptomatic human immunodeficiency virus [HIV] infection status; K21.9 Gastro-esophageal reflux disease without esophagitis; E11.40 Type 2 diabetes mellitus with diabetic neuropathy, unspecified; E78.5 Hyperlipidemia, unspecified; E11.65 Type 2 diabetes mellitus with hyperglycemia; F41.8 Other specified anxiety disorders; Z89.612 Acquired absence of left leg above knee; Z95.5 Presence of coronary angioplasty implant and graft; Z86.718 Personal history of other venous thrombosis and embolism
CPT/HCPCS: 36415; 71045-TC-FY; 74176-TC; 80053; 81003; 82010; 82550; 82803; 82962; 83735; 84100; 84484; 85025; 85610; 85730; 86850; 86900; 86901; 87040; 87086; 87899; 93005; 93010; 99285-25; C9803; J1644; U0003; U0005

== ENCOUNTER 2021-04-16 20:28 | Inpatient (IN) | payer OTHER ==
[2021-04-16] MEDS ORDERED: LACTATED RINGERS SOLUTION 1000 ML INFUS.BAG IV ONE ×2 (21:26→23:31)
[2021-04-16 22:34] LABS: HEMATOCRIT 39.6 % (32.4-45.2); HEMOGLOBIN 13.1 GM/dL (10.7-15.3); INR 1.23 (0.83-1.09); MCH 25.7 pg (25.7-33.7); MCHC 33.2 g/dl (32.0-36.0); MEAN CELL VOLUME 77.3 fl (80-96); MEAN PLT VOLUME 9.9 fl (7.5-11.1); PLATELET COUNT 271 10^3/uL (134-434); PROTHROMBIN TIME (PATIENT) 14.4 SEC (9.7-13.0); RBC 5.12 M/mm3 (3.60-5.2); RDW 18.3 % (11.6-15.6); WHITE BLOOD COUNT 9.4 K/mm3 (4.0-10.0)
[2021-04-16 22:37] LABS: ACTIVATED PTT 18.2 SECONDS (25.2-36.5)
[2021-04-16 22:38] LABS: ALBUMIN 3.4 g/dl (3.4-5.0); BLOOD UREA NITROGEN 35.8 mg/dL (7-18); CALCIUM 9.1 mg/dL (8.5-10.1)
[2021-04-16 22:42] LABS: CREATININE 3.4 mg/dL (0.55-1.3)
[2021-04-16 22:44] LABS: BILIRUBIN,TOTAL 0.8 mg/dL (0.2-1); TOT PROT 8.8 g/dl (6.4-8.2)
[2021-04-16 23:10] LABS: ANISOCYTOSIS 2+; MACROCYTOSIS 0; OVALOCYTE 1+; PLATELET ESTIMATE NORMAL
[2021-04-16 23:26] LABS: LACTIC ACID 4.5 mmol/L (0.4-2.0)
[2021-04-17 01:11] LABS: URINE APPEARANCE CLEAR; URINE BILIRUBIN NEGATIVE (NEGATIVE); URINE COLOR YELLOW; URINE GLUCOSE (UA) NEGATIVE (NEGATIVE); URINE KETONE NEGATIVE (NEGATIVE); URINE LEUK ESTERASE NEGATIVE (NEGATIVE); URINE NITRITE NEGATIVE (NEGATIVE); URINE PROTEIN TRACE (NEGATIVE); URINE UROBILINOGEN 0.2 mg/dL (0.2-1.0)
[2021-04-17 01:57] LABS: CHLORIDE 101 mmol/L (98-107); SODIUM 131 mmol/L (136-145)
[2021-04-17 02:00] LABS: CALCIUM 8.2 mg/dL (8.5-10.1); CO2 21 mmol/L (21-32)
[2021-04-17 02:01] LABS: GLUCOSE,RANDOM 237 mg/dL (74-106)
[2021-04-17 02:03] LABS: CREATININE 2.6 mg/dL (0.55-1.3); SGOT/AST 10 U/L (15-37); SGPT/ALT 12 U/L (13-61)
[2021-04-17 02:05] LABS: ALK PHOS 77 U/L (45-117); BILIRUBIN,TOTAL 0.4 mg/dL (0.2-1)
[2021-04-17 02:13] LABS: ALBUMIN 2.4 g/dl (3.4-5.0); ANION GAP 10 MMOL/L (8-16); TOT PROT 6.3 g/dl (6.4-8.2)
[2021-04-17] MEDS ORDERED: POTASSIUM CHLORIDE TABS 20 MEQ TABLET.ER (FP) PO ONE (02:19)
[2021-04-17] MEDS ORDERED: MAGNESIUM SULF 50% (8.12 MEQ/2 ML-1 GM VIAL) IVPB ONE (02:19)
[2021-04-17] MEDS ORDERED: ALBUTEROL SO4 2.5/IPRATROPIUM 0.5 INH SOL 3 ML VIAL.NEB. NEB ONE (03:05)
[2021-04-17] MEDS ORDERED: MAGNESIUM SULFATE IN WATER 2 GM/50 ML IVPB IVPB ONE (03:11)
[2021-04-17] MEDS ORDERED: SODIUM CHLORIDE 1,000 ML IV SCH (03:45)
[2021-04-17 04:37] LABS: MAGNESIUM 1.1 mg/dL (1.8-2.4)
[2021-04-17] MEDS ORDERED: ALBUTEROL SO4 HFA INHALER IH PRN (04:45)
[2021-04-17 05:15] VITALS: BMI 27.6
[2021-04-17] MEDS: KCL 10 MEQ IVPB 10 MEQ/100 ML INFUS.BAG IVPB SCH ×5 (06:04→16:27)
[2021-04-17] MEDS: INSULIN SLIDING SCALE (NOVOLOG) 1 VIAL SQ SCH ×4 (06:19→21:21)
[2021-04-17] MEDS: APIXABAN 5 MG TABLET PO SCH ×2 (09:20→21:15)
[2021-04-17] MEDS: clonazePAM 0.25 MG ODT TABLETS SL SCH (09:20)
[2021-04-17] MEDS ORDERED: DULoxetine HCL 20 MG CAPSULE.DR PO SCH (10:00)
[2021-04-17] MEDS ORDERED: FLU VACC QS2021-22(6MOS UP)/PF 60 MCG/0.5 ML SYRINGE IM ONE (10:00)
[2021-04-17] MEDS ORDERED: CHOLESTYRAMINE/ASPARTAME 4 GM PACKET PO SCH (12:30)
[2021-04-17] MEDS: BICTEGRAV/EMTRICIT/TENOFOV (BIKTARVY) 50-200-25 MG TABLET PO SCH (15:23)
[2021-04-17] MEDS ORDERED: INSULIN (NOVOLOG) ASPART 100 UNITS/ML 10ML VIAL ONE ×2 (16:47→21:03)
[2021-04-17] MEDS: VANCOMYCIN 250 MG/5 ML ORAL SOLUTION PO SCH ×2 (17:00→23:32)
[2021-04-17] MEDS ORDERED: VANCOMYCIN 250 MG/5 ML ORAL SOLUTION PO SCH (18:00)
[2021-04-17] MEDS: CHOLESTYRAMINE/ASPARTAME 4 GM PACKET PO SCH (21:15)
[2021-04-17] MEDS ORDERED: ACETAMINOPHEN 325 MG TABLET (FP) PO PRN (23:36)
[2021-04-18 02:12] VITALS: PULSE 99
[2021-04-18] MEDS ORDERED: MELATONIN 5 MG TABLETS PO ONE (02:15)
[2021-04-18] MEDS: VANCOMYCIN 250 MG/5 ML ORAL SOLUTION PO SCH (05:32)
[2021-04-18] MEDS: INSULIN SLIDING SCALE (NOVOLOG) 1 VIAL SQ SCH (06:34)
[2021-04-18 08:57] VITALS: BP 137/76; TEMP 98.8
[2021-04-18 08:58] LABS: BASO % 0.2 % (0-2.0); EOS % 1.2 % (0-4.5); HEMOGLOBIN 10.3 GM/dL (10.7-15.3); LYMPH % 20.2 % (8-40); MCH 25.3 pg (25.7-33.7); MCHC 33.1 g/dl (32.0-36.0); MEAN CELL VOLUME 76.4 fl (80-96); MEAN PLT VOLUME 9.6 fl (7.5-11.1); MONO % 10.3 % (3.8-10.2); NEUT % 68.1 % (42.8-82.8); PLATELET COUNT 182 10^3/uL (134-434); RBC 4.06 M/mm3 (3.60-5.2); RDW 17.9 % (11.6-15.6); WHITE BLOOD COUNT 4.9 K/mm3 (4.0-10.0)
[2021-04-18 09:05] LABS: ALBUMIN 2.6 g/dl (3.4-5.0); BLOOD UREA NITROGEN 20.2 mg/dL (7-18); CALCIUM 8.8 mg/dL (8.5-10.1)
[2021-04-18 09:06] LABS: BILIRUBIN,TOTAL 0.2 mg/dL (0.2-1); MAGNESIUM 1.8 mg/dL (1.8-2.4); TOT PROT 6.7 g/dl (6.4-8.2)
[2021-04-18 09:08] LABS: CREATININE 1.1 mg/dL (0.55-1.3); PHOSPHOROUS 1.9 mg/dL (2.5-4.9)
[2021-04-18] MEDS: APIXABAN 5 MG TABLET PO SCH (10:16)
[2021-04-18] MEDS: BICTEGRAV/EMTRICIT/TENOFOV (BIKTARVY) 50-200-25 MG TABLET PO SCH (10:16)
[2021-04-18] MEDS: CHOLESTYRAMINE/ASPARTAME 4 GM PACKET PO SCH (10:16)
[2021-04-18] MEDS: clonazePAM 0.25 MG ODT TABLETS SL SCH (10:16)
== END 2021-04-18 11:16 | disposition left against medical advice (07) | DRG 683 ==
LOC: JER 20:28 → JERBED 04-17 03:08 → OBSVTOIN 04-17 03:08 → J7W 04-17 04:33
PROVIDERS: ADMIT Internal Medicine; ATTEND Internal Medicine
DX: N17.9 Acute kidney failure, unspecified (principal); E87.1 Hypo-osmolality and hyponatremia; A08.4 Viral intestinal infection, unspecified; E86.0 Dehydration; E87.6 Hypokalemia; N18.9 Chronic kidney disease, unspecified; I10 Essential (primary) hypertension; E78.5 Hyperlipidemia, unspecified; J45.909 Unspecified asthma, uncomplicated; Z21 Asymptomatic human immunodeficiency virus [HIV] infection status; F41.9 Anxiety disorder, unspecified; E11.9 Type 2 diabetes mellitus without complications
CPT/HCPCS: 36415; 71045-TC-FY; 74176-TC; 76775-TC; 80053; 81003; 82962; 83605; 83735; 84100; 85025; 85610; 85730; 87040; 87086; 90686; 93005; 93010; 99285-25; C9803; G0008; U0003; U0005

== ENCOUNTER 2021-07-20 12:46 | Inpatient (IN) | payer OTHER ==
[2021-07-20 13:05] VITALS: BMI 28.3
[2021-07-20] MEDS ORDERED: FAMOTIDINE 20 MG/50 ML IVPB 20 MG/50 ML MG IVPB ONE ×2 (14:10→14:38)
[2021-07-20] MEDS ORDERED: ACETAMINOPHEN 1000 MG/100 ML BAG IVPB ONE (14:10)
[2021-07-20] MEDS ORDERED: SODIUM CHLORIDE 1,000 ML IV STA ×2 (14:10→17:26)
[2021-07-20] MEDS ORDERED: ACETAMINOPHEN INJECTION 100 ML IVPB ONE (14:38)
[2021-07-20 15:16] LABS: BASO % 0.3 % (0-2.0); EOS % 0.5 % (0-4.5); HEMATOCRIT 37.3 % (32.4-45.2); LYMPH % 8.5 % (8-40); MCH 24.7 pg (25.7-33.7); MCHC 32.1 g/dl (32.0-36.0); MEAN CELL VOLUME 76.9 fl (80-96); MEAN PLT VOLUME 9.3 fl (7.5-11.1); MONO % 4.3 % (3.8-10.2); NEUT % 86.4 % (42.8-82.8); PLATELET COUNT 243 10^3/uL (134-434); RBC 4.85 M/mm3 (3.60-5.2); RDW 16.8 % (11.6-15.6); WHITE BLOOD COUNT 10.8 K/mm3 (4.0-10.0)
[2021-07-20 15:24] LABS: INR 1.09 (0.83-1.09); PROTHROMBIN TIME (PATIENT) 12.5 SEC (9.7-13.0)
[2021-07-20 15:58] LABS: CALCIUM 9.2 mg/dL (8.5-10.1)
[2021-07-20 15:59] LABS: ALBUMIN 3.8 g/dl (3.4-5.0); BLOOD UREA NITROGEN 19.9 mg/dL (7-18)
[2021-07-20 16:02] LABS: CREATININE 1.4 mg/dL (0.55-1.3)
[2021-07-20 16:03] LABS: BILIRUBIN,TOTAL 0.2 mg/dL (0.2-1); TOT PROT 7.8 g/dl (6.4-8.2)
[2021-07-20] MEDS ORDERED: morphine CARPU-JECT 4 MG/1 ML DISP.SYRIN IVPUSH ONE (16:57)
[2021-07-20] MEDS ORDERED: morphine SULFATE 4 MG/ML VIAL ONE (17:00)
[2021-07-20 18:38] LABS: URINE APPEARANCE CLEAR; URINE BILIRUBIN NEGATIVE (NEGATIVE); URINE COLOR YELLOW; URINE GLUCOSE (UA) 3+ (NEGATIVE); URINE KETONE NEGATIVE (NEGATIVE); URINE LEUK ESTERASE NEGATIVE (NEGATIVE); URINE NITRITE NEGATIVE (NEGATIVE); URINE PROTEIN TRACE (NEGATIVE); URINE UROBILINOGEN 0.2 mg/dL (0.2-1.0)
[2021-07-20] MEDS ORDERED: HYDROmorphone HCL CARPU-JECT 2 MG/1 ML DISP.SYRIN IVPUSH ONE (19:12)
[2021-07-20 19:17] LABS: CHOLESTEROL 265 mg/dL (50-200); TRIGLYCERIDES 581 mg/dL (0-150)
[2021-07-20] MEDS ORDERED: ONDANSETRON *ODT* 4 MG TABLET SL ONE (19:49)
[2021-07-20] MEDS ORDERED: HYDROmorphone HCl 2 MG/ML VIAL ONE (19:52)
[2021-07-20] MEDS ORDERED: ONDANSETRON *ODT* 4 MG TABLET ONE (19:53)
[2021-07-21] MEDS ORDERED: ACETAMINOPHEN 1000 MG/100 ML BAG IVPB ONE (00:58)
[2021-07-21] MEDS ORDERED: ACETAMINOPHEN INJECTION 100 ML IVPB ONE (01:16)
[2021-07-21 02:55] LABS: HEMATOCRIT 34.1 % (32.4-45.2); HEMOGLOBIN 10.9 GM/dL (10.7-15.3); MCH 24.6 pg (25.7-33.7); MCHC 31.9 g/dl (32.0-36.0); PLATELET COUNT 204 10^3/uL (134-434); RBC 4.43 M/mm3 (3.60-5.2); RDW 16.1 % (11.6-15.6); WHITE BLOOD COUNT 8.4 K/mm3 (4.0-10.0)
[2021-07-21] MEDS ORDERED: LACTATED RINGERS SOLUTION 1,000 ML IV SCH (03:45)
[2021-07-21] MEDS ORDERED: morphine SULFATE 4 MG/ML VIAL ONE (03:48)
[2021-07-21] MEDS: INSULIN SLIDING SCALE (NOVOLOG) 1 VIAL SQ SCH ×3 (06:10→17:41)
[2021-07-21] MEDS ORDERED: LACTATED RINGERS SOLUTION 1,000 ML/1,000 ML INFUS.BAG IV SCH (08:30)
[2021-07-21] MEDS ORDERED: APIXABAN 5 MG TABLET PO SCH (10:00)
[2021-07-21] MEDS: LACTATED RINGERS SOLUTION 1,000 ML/1,000 ML INFUS.BAG IV SCH (12:11)
[2021-07-21 13:57] LABS: HEMATOCRIT 32.8 % (32.4-45.2); HEMOGLOBIN 10.3 GM/dL (10.7-15.3); MCH 24.4 pg (25.7-33.7); MCHC 31.4 g/dl (32.0-36.0); MEAN CELL VOLUME 77.9 fl (80-96); MEAN PLT VOLUME 9.7 fl (7.5-11.1); PLATELET COUNT 194 10^3/uL (134-434); RBC 4.22 M/mm3 (3.60-5.2); RDW 16.4 % (11.6-15.6); WHITE BLOOD COUNT 6.5 K/mm3 (4.0-10.0)
[2021-07-21 15:41] LABS: ALBUMIN 3.4 g/dl (3.4-5.0); CALCIUM 8.7 mg/dL (8.5-10.1); MAGNESIUM 1.8 mg/dL (1.8-2.4)
[2021-07-21 15:44] LABS: CREATININE 1.2 mg/dL (0.55-1.3); PHOSPHOROUS 2.6 mg/dL (2.5-4.9)
[2021-07-21 15:46] LABS: BILIRUBIN,TOTAL 0.4 mg/dL (0.2-1)
[2021-07-21] MEDS: APIXABAN 5 MG TABLET PO SCH (21:01)
[2021-07-21] MEDS: ACETAMINOPHEN 1000 MG/100 ML BAG IVPB PRN (22:56)
[2021-07-22] MEDS: INSULIN SLIDING SCALE (NOVOLOG) 1 VIAL SQ SCH ×3 (06:10→17:13)
[2021-07-22] MEDS: APIXABAN 5 MG TABLET PO SCH ×2 (09:39→21:18)
[2021-07-22] MEDS: ACETAMINOPHEN 1000 MG/100 ML BAG IVPB PRN (09:40)
[2021-07-22] MEDS ORDERED: LORazepam 0.5 MG TABLET PO PRN (10:14)
[2021-07-22] MEDS ORDERED: ALBUTEROL SO4 2.5/IPRATROPIUM 0.5 INH SOL 3 ML VIAL.NEB. NEB PRN (10:46)
[2021-07-22] MEDS: LACTATED RINGERS SOLUTION 1,000 ML/1,000 ML INFUS.BAG IV SCH (11:04)
[2021-07-22] MEDS: GABAPENTIN 400 MG CAPSULE PO SCH ×2 (12:00→21:18)
[2021-07-22] MEDS: CLOPIDOGREL BISULFATE 75 MG TABLET (FP) PO SCH (12:01)
[2021-07-22] MEDS: BUDESONIDE/FORMETEROL FUMARATE 80/4.5 mcg INHALER IH SCH ×2 (12:01→21:19)
[2021-07-22] MEDS ORDERED: LACTATED RINGERS SOLUTION 1,000 ML/1,000 ML INFUS.BAG IV SCH (13:30)
[2021-07-22 16:10] LABS: BASO % 0.2 % (0-2.0); EOS % 1.7 % (0-4.5); HEMOGLOBIN 10.3 GM/dL (10.7-15.3); LYMPH % 13.6 % (8-40); MCH 24.7 pg (25.7-33.7); MCHC 32.2 g/dl (32.0-36.0); MEAN CELL VOLUME 76.7 fl (80-96); MEAN PLT VOLUME 9.2 fl (7.5-11.1); MONO % 4.6 % (3.8-10.2); NEUT % 79.9 % (42.8-82.8); PLATELET COUNT 175 10^3/uL (134-434); RBC 4.17 M/mm3 (3.60-5.2); RDW 16.6 % (11.6-15.6); WHITE BLOOD COUNT 6.5 K/mm3 (4.0-10.0)
[2021-07-22 16:35] LABS: CALCIUM 9.3 mg/dL (8.5-10.1)
[2021-07-22 16:36] LABS: ALBUMIN 3.1 g/dl (3.4-5.0); BLOOD UREA NITROGEN 9.3 mg/dL (7-18); MAGNESIUM 1.7 mg/dL (1.8-2.4)
[2021-07-22 16:39] LABS: CREATININE 1.1 mg/dL (0.55-1.3)
[2021-07-22 16:40] LABS: BILIRUBIN,TOTAL 0.5 mg/dL (0.2-1)
[2021-07-22 16:41] LABS: TOT PROT 6.9 g/dl (6.4-8.2)
[2021-07-22] MEDS ORDERED: POTASSIUM CHLORIDE TABS 20 MEQ TABLET.ER (FP) PO ONE (18:04)
[2021-07-22] MEDS: INSULIN (LEVEMIR) 100 UNITS/ML UNITS SQ SCH (21:21)
[2021-07-22] MEDS ORDERED: ACETAMINOPHEN 1000 MG/100 ML BAG IVPB PRN (23:14)
[2021-07-23] MEDS: SERTRALINE HCL 50 MG TABLET (FP) PO SCH (06:22)
[2021-07-23] MEDS: INSULIN SLIDING SCALE (NOVOLOG) 1 VIAL SQ SCH ×3 (06:25→16:24)
[2021-07-23] MEDS: GABAPENTIN 400 MG CAPSULE PO SCH ×2 (10:05→21:33)
[2021-07-23] MEDS: BUDESONIDE/FORMETEROL FUMARATE 80/4.5 mcg INHALER IH SCH ×2 (10:05→21:34)
[2021-07-23] MEDS: BICTEGRAV/EMTRICIT/TENOFOV (BIKTARVY) 50-200-25 MG TABLET PO SCH (10:06)
[2021-07-23] MEDS: CLOPIDOGREL BISULFATE 75 MG TABLET (FP) PO SCH (10:06)
[2021-07-23] MEDS: APIXABAN 5 MG TABLET PO SCH ×2 (10:06→21:33)
[2021-07-23] MEDS ORDERED: INSULIN (NOVOLOG) ASPART 100 UNITS/ML 10ML VIAL ONE ×2 (11:32→16:12)
[2021-07-23 11:34] LABS: BASO % 0.3 % (0-2.0); EOS % 2.9 % (0-4.5); HEMATOCRIT 32.6 % (32.4-45.2); LYMPH % 21.2 % (8-40); MCHC 30.7 g/dl (32.0-36.0); MEAN CELL VOLUME 78.3 fl (80-96); MEAN PLT VOLUME 9.4 fl (7.5-11.1); MONO % 7.7 % (3.8-10.2); NEUT % 67.9 % (42.8-82.8); PLATELET COUNT 207 10^3/uL (134-434); RBC 4.17 M/mm3 (3.60-5.2); RDW 15.9 % (11.6-15.6); WHITE BLOOD COUNT 6.5 K/mm3 (4.0-10.0)
[2021-07-23 11:58] LABS: CALCIUM 9.6 mg/dL (8.5-10.1)
[2021-07-23 11:59] LABS: BLOOD UREA NITROGEN 7.8 mg/dL (7-18); MAGNESIUM 2.1 mg/dL (1.8-2.4)
[2021-07-23 12:04] LABS: BILIRUBIN,TOTAL 0.4 mg/dL (0.2-1); TOT PROT 6.9 g/dl (6.4-8.2)
[2021-07-23] MEDS: metFORMIN HCL 500 MG TABLET (FP) PO SCH (16:17)
[2021-07-23] MEDS: INSULIN (LEVEMIR) 100 UNITS/ML UNITS SQ SCH (21:34)
[2021-07-23] MEDS ORDERED: ATORVASTATIN CA 40 MG TABLET (FP) PO SCH (22:00)
[2021-07-24] MEDS: SERTRALINE HCL 50 MG TABLET (FP) PO SCH (06:29)
[2021-07-24] MEDS: metFORMIN HCL 500 MG TABLET (FP) PO SCH (06:29)
[2021-07-24] MEDS: INSULIN SLIDING SCALE (NOVOLOG) 1 VIAL SQ SCH ×2 (06:31→11:48)
[2021-07-24 09:36] LABS: BASO % 0.4 % (0-2.0); EOS % 3.7 % (0-4.5); HEMATOCRIT 33.1 % (32.4-45.2); HEMOGLOBIN 10.3 GM/dL (10.7-15.3); LYMPH % 21.5 % (8-40); MCHC 31.2 g/dl (32.0-36.0); MEAN CELL VOLUME 76.8 fl (80-96); MEAN PLT VOLUME 9.3 fl (7.5-11.1); MONO % 7.1 % (3.8-10.2); NEUT % 67.3 % (42.8-82.8); PLATELET COUNT 216 10^3/uL (134-434); RDW 16.4 % (11.6-15.6); WHITE BLOOD COUNT 5.6 K/mm3 (4.0-10.0)
[2021-07-24 10:03] LABS: BLOOD UREA NITROGEN 9.6 mg/dL (7-18); CALCIUM 9.8 mg/dL (8.5-10.1)
[2021-07-24 10:06] LABS: CREATININE 1.1 mg/dL (0.55-1.3)
[2021-07-24 10:08] LABS: BILIRUBIN,TOTAL 0.3 mg/dL (0.2-1)
[2021-07-24 10:11] LABS: MAGNESIUM 2.1 mg/dL (1.8-2.4)
[2021-07-24] MEDS: GABAPENTIN 400 MG CAPSULE PO SCH (10:51)
[2021-07-24] MEDS: CLOPIDOGREL BISULFATE 75 MG TABLET (FP) PO SCH (10:51)
[2021-07-24] MEDS: BICTEGRAV/EMTRICIT/TENOFOV (BIKTARVY) 50-200-25 MG TABLET PO SCH (10:52)
[2021-07-24] MEDS: APIXABAN 5 MG TABLET PO SCH (10:52)
[2021-07-24] MEDS: BUDESONIDE/FORMETEROL FUMARATE 80/4.5 mcg INHALER IH SCH (10:52)
[2021-07-24 13:46] VITALS: BP 109/70; PULSE 83; TEMP 97.8
== END 2021-07-24 16:24 | disposition home or self-care (01) | DRG 440 ==
LOC: JER 12:46 → JERBED 21:14 → J6S 07-21 05:15
PROVIDERS: ADMIT Internal Medicine; ATTEND Nurse Practitioner Family
DX: K85.90 Acute pancreatitis without necrosis or infection, unspecified (principal); E11.51 Type 2 diabetes mellitus with diabetic peripheral angiopathy without gangrene; J45.909 Unspecified asthma, uncomplicated; I25.10 Atherosclerotic heart disease of native coronary artery without angina pectoris; Z89.612 Acquired absence of left leg above knee; Z99.3 Dependence on wheelchair; E11.65 Type 2 diabetes mellitus with hyperglycemia; Z79.4 Long term (current) use of insulin; Z21 Asymptomatic human immunodeficiency virus [HIV] infection status; R94.31 Abnormal electrocardiogram [ECG] [EKG]; E11.22 Type 2 diabetes mellitus with diabetic chronic kidney disease; I12.9 Hypertensive chronic kidney disease with stage 1 through stage 4 chronic kidney disease, or unspecified chronic kidney disease; N18.9 Chronic kidney disease, unspecified; E78.5 Hyperlipidemia, unspecified; E78.1 Pure hyperglyceridemia
CPT/HCPCS: 36415; 74177-TC; 74181-TC; 76705-TC; 80053; 81003; 82150; 82465; 82962; 83036; 83605; 83690; 83735; 84100; 84478; 85025; 85027; 85610; 86140; 86301; 87086; 93005; 93010; 99285-25; C9803; J0131; Q0162; Q9967; U0003; U0005

== ENCOUNTER 2021-09-13 15:09 | Inpatient (IN) | payer OTHER ==
[2021-09-13 15:48] VITALS: BMI 29.2
[2021-09-13] MEDS ORDERED: SODIUM CHLORIDE 1,000 ML IV STA (16:34)
[2021-09-13] MEDS ORDERED: HYDROmorphone HCL CARPU-JECT 2 MG/1 ML DISP.SYRIN IVPB ONE (16:34)
[2021-09-13] MEDS ORDERED: HYDROmorphone HCl 2 MG/ML VIAL ONE (16:50)
[2021-09-13 17:44] LABS: BASO % 0.5 % (0-2.0); EOS % 2.6 % (0-4.5); HEMATOCRIT 35.9 % (32.4-45.2); HEMOGLOBIN 11.2 GM/dL (10.7-15.3); LYMPH % 22.3 % (8-40); MCHC 31.2 g/dl (32.0-36.0); MEAN CELL VOLUME 76.9 fl (80-96); MEAN PLT VOLUME 9.2 fl (7.5-11.1); MONO % 5.7 % (3.8-10.2); NEUT % 68.9 % (42.8-82.8); PLATELET COUNT 246 10^3/uL (134-434); RBC 4.66 M/mm3 (3.60-5.2); RDW 17.5 % (11.6-15.6); WHITE BLOOD COUNT 8.8 K/mm3 (4.0-10.0)
[2021-09-13 18:01] LABS: CALCIUM 9.8 mg/dL (8.5-10.1)
[2021-09-13 18:02] LABS: ALBUMIN 3.6 g/dl (3.4-5.0); BLOOD UREA NITROGEN 17.2 mg/dL (7-18)
[2021-09-13 18:05] LABS: CREATININE 1.1 mg/dL (0.55-1.3)
[2021-09-13 18:06] LABS: BILIRUBIN,TOTAL 0.4 mg/dL (0.2-1); TOT PROT 7.9 g/dl (6.4-8.2)
[2021-09-13] MEDS ORDERED: LACTATED RINGERS SOLUTION 1,000 ML IV SCH ×2 (19:30→20:47)
[2021-09-13 20:13] LABS: PH,URINE 5.5 (5.0-8.0); URINE APPEARANCE CLOUDY; URINE BILIRUBIN NEGATIVE (NEGATIVE); URINE COLOR YELLOW; URINE GLUCOSE (UA) 3+ (NEGATIVE); URINE KETONE NEGATIVE (NEGATIVE); URINE LEUK ESTERASE NEGATIVE (NEGATIVE); URINE NITRITE NEGATIVE (NEGATIVE); URINE PROTEIN TRACE (NEGATIVE); URINE UROBILINOGEN 0.2 mg/dL (0.2-1.0)
[2021-09-13] MEDS ORDERED: PATIENT'S OWN MEDICATION (NON-FORMULARY) (Insulin Glargine,Hum.Rec.Anlog [Toujeo Solostar] SQ SCH (22:00)
[2021-09-13] MEDS: oxyCODONE HCL 5 MG TABLET PO SCH (22:21)
[2021-09-13] MEDS: INSULIN SLIDING SCALE (NOVOLOG) 1 VIAL SQ SCH (23:03)
[2021-09-13] MEDS: INSULIN (LEVEMIR) 100 UNITS/ML UNITS SQ SCH (23:03)
[2021-09-14 00:13] LABS: MAGNESIUM 2.1 mg/dL (1.8-2.4)
[2021-09-14 00:16] LABS: PHOSPHOROUS 3.6 mg/dL (2.5-4.9)
[2021-09-14] MEDS ORDERED: oxyCODONE HCL 5 MG TABLET ONE (00:57)
[2021-09-14] MEDS: oxyCODONE HCL 5 MG TABLET PO SCH ×4 (03:02→21:57)
[2021-09-14] MEDS: INSULIN SLIDING SCALE (NOVOLOG) 1 VIAL SQ SCH ×3 (06:47→16:52)
[2021-09-14 08:28] LABS: BASO % 0.4 % (0-2.0); EOS % 3.1 % (0-4.5); HEMATOCRIT 30.6 % (32.4-45.2); LYMPH % 36.2 % (8-40); MCH 24.6 pg (25.7-33.7); MCHC 32.6 g/dl (32.0-36.0); MEAN CELL VOLUME 75.6 fl (80-96); MEAN PLT VOLUME 8.8 fl (7.5-11.1); MONO % 6.2 % (3.8-10.2); NEUT % 54.1 % (42.8-82.8); PLATELET COUNT 185 10^3/uL (134-434); RBC 4.05 M/mm3 (3.60-5.2); RDW 17.3 % (11.6-15.6); WHITE BLOOD COUNT 6.3 K/mm3 (4.0-10.0)
[2021-09-14 08:30] LABS: INR 1.16 (0.83-1.09); PROTHROMBIN TIME (PATIENT) 13.4 SEC (9.7-13.0)
[2021-09-14 08:33] LABS: ACTIVATED PTT 27.9 SECONDS (25.2-36.5)
[2021-09-14 08:52] LABS: ALBUMIN 2.9 g/dl (3.4-5.0); BLOOD UREA NITROGEN 22.4 mg/dL (7-18)
[2021-09-14 08:53] LABS: MAGNESIUM 2.1 mg/dL (1.8-2.4)
[2021-09-14 08:55] LABS: CREATININE 1.6 mg/dL (0.55-1.3); PHOSPHOROUS 4.9 mg/dL (2.5-4.9)
[2021-09-14 08:56] LABS: TOT PROT 6.5 g/dl (6.4-8.2)
[2021-09-14 08:59] LABS: BILIRUBIN,TOTAL 0.6 mg/dL (0.2-1)
[2021-09-14 09:17] LABS: IRON SERUM 28 ug/dL (50-175)
[2021-09-14 09:18] LABS: TOTAL IRON BINDING CAPACITY 310 ug/dL (250-450)
[2021-09-14] MEDS: APIXABAN 5 MG TABLET PO SCH ×2 (09:32→21:57)
[2021-09-14 09:57] LABS: TRIGLYCERIDES 581 mg/dL (0-150)
[2021-09-14] MEDS ORDERED: APIXABAN 5 MG TABLET PO SCH (10:00)
[2021-09-14] MEDS ORDERED: CLOPIDOGREL BISULFATE 75 MG TABLET (FP) PO SCH (10:00)
[2021-09-14 11:15] LABS: ADD RBC MORPHOLOGY YES
[2021-09-14] MEDS: LACTATED RINGERS SOLUTION 1,000 ML/1,000 ML INFUS.BAG IV SCH ×2 (11:24→21:58)
[2021-09-14] MEDS: BICTEGRAV/EMTRICIT/TENOFOV (BIKTARVY) 50-200-25 MG TABLET PO SCH (11:25)
[2021-09-14 12:15] LABS: ANISOCYTOSIS 1+; PLATELET ESTIMATE ADEQUATE
[2021-09-14] MEDS: FENOFIBRIC ACID 135 MG CAP PO SCH (12:57)
[2021-09-14] MEDS ORDERED: ALBUTEROL SO4 HFA INHALER IH PRN (16:31)
[2021-09-14] MEDS: traZODone HCL 100 MG TABLET (FP) PO SCH (21:57)
[2021-09-14] MEDS ORDERED: ATORVASTATIN CA 10 MG TABLET (FP) PO SCH (22:00)
[2021-09-14] MEDS: INSULIN (LEVEMIR) 100 UNITS/ML UNITS SQ SCH (22:06)
[2021-09-15] MEDS: oxyCODONE HCL 5 MG TABLET PO SCH ×2 (02:39→08:16)
[2021-09-15] MEDS: SERTRALINE HCL 50 MG TABLET (FP) PO SCH (06:20)
[2021-09-15] MEDS: INSULIN SLIDING SCALE (NOVOLOG) 1 VIAL SQ SCH ×3 (06:20→16:23)
[2021-09-15] MEDS: LACTATED RINGERS SOLUTION 1,000 ML/1,000 ML INFUS.BAG IV SCH ×2 (08:17→19:00)
[2021-09-15 08:39] LABS: HEMATOCRIT 28.8 % (32.4-45.2); HEMOGLOBIN 9.5 GM/dL (10.7-15.3); MCH 25.2 pg (25.7-33.7); MEAN CELL VOLUME 76.3 fl (80-96); MEAN PLT VOLUME 8.8 fl (7.5-11.1); PLATELET COUNT 177 10^3/uL (134-434); RBC 3.77 M/mm3 (3.60-5.2); RDW 17.3 % (11.6-15.6); WHITE BLOOD COUNT 4.3 K/mm3 (4.0-10.0)
[2021-09-15 09:00] LABS: ALBUMIN 2.9 g/dl (3.4-5.0); CALCIUM 9.1 mg/dL (8.5-10.1)
[2021-09-15 09:01] LABS: BLOOD UREA NITROGEN 17.2 mg/dL (7-18)
[2021-09-15] MEDS ORDERED: oxyCODONE HCL 5 MG TABLET PO PRN ×2 (09:02→09:06)
[2021-09-15 09:04] LABS: BILIRUBIN,TOTAL 0.3 mg/dL (0.2-1); TOT PROT 6.4 g/dl (6.4-8.2)
[2021-09-15 09:06] LABS: CHOLESTEROL 226 mg/dL (50-200)
[2021-09-15 09:07] LABS: TRIGLYCERIDES 656 mg/dL (0-150)
[2021-09-15 09:08] LABS: LDL CHOLESTEROL (ONLY SJRH) 123 mg/dL (5-100)
[2021-09-15 09:10] LABS: HDL CHOLESTEROL 25 mg/dL (40-60)
[2021-09-15] MEDS: FENOFIBRIC ACID 135 MG CAP PO SCH (09:41)
[2021-09-15] MEDS: APIXABAN 5 MG TABLET PO SCH ×2 (09:42→21:34)
[2021-09-15] MEDS: BICTEGRAV/EMTRICIT/TENOFOV (BIKTARVY) 50-200-25 MG TABLET PO SCH (09:42)
[2021-09-15] MEDS ORDERED: ATORVASTATIN CA 40 MG TABLET (FP) PO SCH (15:43)
[2021-09-15] MEDS ORDERED: LACTATED RINGERS SOLUTION 1,000 ML/1,000 ML INFUS.BAG IV SCH (17:30)
[2021-09-15] MEDS: traZODone HCL 100 MG TABLET (FP) PO SCH (21:34)
[2021-09-15] MEDS: INSULIN (LEVEMIR) 100 UNITS/ML UNITS SQ SCH (21:34)
[2021-09-15] MEDS ORDERED: TRIMETHOBENZAMIDE HCL 300 MG CAPSULE PO PRN (23:30)
[2021-09-16] MEDS: INSULIN SLIDING SCALE (NOVOLOG) 1 VIAL SQ SCH ×2 (06:11→11:18)
[2021-09-16] MEDS: SERTRALINE HCL 50 MG TABLET (FP) PO SCH (06:12)
[2021-09-16] MEDS ORDERED: INSULIN (LEVEMIR) 100 UNITS/ML UNITS SQ ONE (06:43)
[2021-09-16] MEDS ORDERED: TRIMETHOBENZAMIDE HCL 300 MG CAPSULE PO PRN (07:16)
[2021-09-16] MEDS: LACTATED RINGERS SOLUTION 1,000 ML/1,000 ML INFUS.BAG IV SCH (08:15)
[2021-09-16] MEDS: BICTEGRAV/EMTRICIT/TENOFOV (BIKTARVY) 50-200-25 MG TABLET PO SCH (09:31)
[2021-09-16] MEDS: FENOFIBRIC ACID 135 MG CAP PO SCH (09:31)
[2021-09-16] MEDS: APIXABAN 5 MG TABLET PO SCH (09:31)
[2021-09-16 10:17] LABS: HEMOGLOBIN 10.3 GM/dL (10.7-15.3); MCH 24.5 pg (25.7-33.7); MCHC 32.3 g/dl (32.0-36.0); MEAN CELL VOLUME 75.9 fl (80-96); MEAN PLT VOLUME 8.7 fl (7.5-11.1); PLATELET COUNT 203 10^3/uL (134-434); RBC 4.21 M/mm3 (3.60-5.2); RDW 16.9 % (11.6-15.6); WHITE BLOOD COUNT 4.4 K/mm3 (4.0-10.0)
[2021-09-16 10:40] LABS: BLOOD UREA NITROGEN 10.3 mg/dL (7-18)
[2021-09-16 10:43] LABS: CREATININE 1.1 mg/dL (0.55-1.3)
[2021-09-16] MEDS ORDERED: INSULIN (NOVOLOG) ASPART 100 UNITS/ML 10ML VIAL ONE (11:17)
[2021-09-16 14:01] VITALS: BP 124/76; PULSE 96; TEMP 98.1
== END 2021-09-16 15:51 | disposition home or self-care (01) | DRG 439 ==
LOC: JER 15:09 → JERBED 18:36 → J6S 09-14 01:32
PROVIDERS: ADMIT Internal Medicine; ATTEND Internal Medicine
DX: K85.90 Acute pancreatitis without necrosis or infection, unspecified (principal); N17.9 Acute kidney failure, unspecified; E87.1 Hypo-osmolality and hyponatremia; E78.5 Hyperlipidemia, unspecified; D50.9 Iron deficiency anemia, unspecified; I25.10 Atherosclerotic heart disease of native coronary artery without angina pectoris; K57.90 Diverticulosis of intestine, part unspecified, without perforation or abscess without bleeding; E78.1 Pure hyperglyceridemia; J45.909 Unspecified asthma, uncomplicated; R94.31 Abnormal electrocardiogram [ECG] [EKG]; Z21 Asymptomatic human immunodeficiency virus [HIV] infection status; I12.9 Hypertensive chronic kidney disease with stage 1 through stage 4 chronic kidney disease, or unspecified chronic kidney disease; E11.22 Type 2 diabetes mellitus with diabetic chronic kidney disease; N18.9 Chronic kidney disease, unspecified; E11.51 Type 2 diabetes mellitus with diabetic peripheral angiopathy without gangrene; F41.9 Anxiety disorder, unspecified; Z89.612 Acquired absence of left leg above knee; Z99.3 Dependence on wheelchair; Z86.718 Personal history of other venous thrombosis and embolism; Z95.5 Presence of coronary angioplasty implant and graft
CPT/HCPCS: 36415; 71046-TC-FY; 76700-TC; 80048; 80053; 80061; 81003; 82607; 82747; 82962; 83540; 83550; 83690; 83735; 84100; 84478; 85014; 85025; 85027; 85610; 85730; 87086; 93005; 93010; 97161-GP; 99285-25; C9803; U0003; U0005

== ENCOUNTER 2021-12-29 12:53 | Inpatient (IN) | payer OTHER ==
[2021-12-29] MEDS ORDERED: SODIUM CHLORIDE 0.9% 500 ML INFUS.BAG IV ONE (17:43)
[2021-12-29] MEDS ORDERED: morphine CARPU-JECT 4 MG/1 ML DISP.SYRIN IVPUSH ONE (17:43)
[2021-12-29] MEDS ORDERED: VANCOMYCIN 1 GM in D5W (PRE-DOCKED) 1,000 MG/250 ML IVPB ONE (17:50)
[2021-12-29] MEDS ORDERED: PIPERACILLIN/TAZOB 3.375 GM 3.375 GM in DEXTROSE 5%-WATER - 50 ML IVPB ONE (17:51)
[2021-12-29 18:00] LABS: BASO % 0.8 % (0-2.0); EOS % 1.7 % (0-4.5); HEMATOCRIT 36.9 % (32.4-45.2); HEMOGLOBIN 11.7 GM/dL (10.7-15.3); MCHC 31.7 g/dl (32.0-36.0); MEAN CELL VOLUME 75.6 fl (80-96); NEUT % 60.5 % (42.8-82.8); PLATELET COUNT 190 10^3/uL (134-434); RBC 4.88 M/mm3 (3.60-5.2); RDW 17.3 % (11.6-15.6); WHITE BLOOD COUNT 6.4 K/mm3 (4.0-10.0)
[2021-12-29 18:07] LABS: INR 1.08 (0.83-1.09); PROTHROMBIN TIME (PATIENT) 12.4 SEC (9.7-13.0)
[2021-12-29 18:31] LABS: ALBUMIN 3.6 g/dl (3.4-5.0)
[2021-12-29 18:32] LABS: BLOOD UREA NITROGEN 18.5 mg/dL (7-18)
[2021-12-29 18:34] LABS: CREATININE 1.5 mg/dL (0.55-1.3)
[2021-12-29 18:36] LABS: BILIRUBIN,TOTAL 0.2 mg/dL (0.2-1); TOT PROT 8.1 g/dl (6.4-8.2)
[2021-12-29] MEDS ORDERED: morphine SULFATE 4 MG/ML VIAL ONE (19:01)
[2021-12-29] MEDS ORDERED: PIPERACILLIN/TAZOB 3.375 GM 3.375 GM/50 ML BAG IVPB ONE (19:22)
[2021-12-29] MEDS ORDERED: VANCOMYCIN 1 GRAM (PRE-DOCKED) 1,000 MG/250 ML BAG IVPB ONE (19:22)
[2021-12-29] MEDS ORDERED: ALBUTEROL SO4 HFA INHALER IH PRN (21:32)
[2021-12-29] MEDS: SODIUM CHLORIDE 1,000 ML IV SCH (21:41)
[2021-12-29] MEDS ORDERED: HEPARIN NA (PORCINE) 5,000 UNITS/ML 1ML VIAL SQ SCH (22:00)
[2021-12-29] MEDS ORDERED: APIXABAN 5 MG TABLET ONE (22:53)
[2021-12-29] MEDS: APIXABAN 5 MG TABLET PO SCH (23:05)
[2021-12-29] MEDS ORDERED: ATORVASTATIN CA 40 MG TABLET (FP) ONE (23:25)
[2021-12-29] MEDS ORDERED: NICOTINE 21 MG/24 HOURS TOPICAL PATCH ONE (23:25)
[2021-12-29] MEDS: traZODone HCL 100 MG TABLET (FP) PO SCH (23:39)
[2021-12-29] MEDS: NICOTINE 21 MG/24 HOURS TOPICAL PATCH TD SCH (23:40)
[2021-12-29] MEDS: ATORVASTATIN CA 40 MG TABLET (FP) PO SCH (23:40)
[2021-12-29] MEDS: INSULIN SLIDING SCALE (NOVOLOG) 1 VIAL SQ SCH (23:40)
[2021-12-29] MEDS: DOXEPIN HCL 25 MG CAPSULE PO SCH (23:42)
[2021-12-29] MEDS: INSULIN (LEVEMIR) 100 UNITS/ML UNITS SQ SCH (23:42)
[2021-12-30] MEDS ORDERED: morphine CARPU-JECT 2 MG/1 ML DISP.SYRIN IM ONE (03:33)
[2021-12-30] MEDS ORDERED: morphine CARPU-JECT 2 MG/1 ML DISP.SYRIN IVPUSH ONE (03:33)
[2021-12-30] MEDS: PIPERACILLIN/TAZOB 3.375 GM 3.375 GM in DEXTROSE 5%-WATER - 50 ML IVPB SCH ×3 (03:38→18:39)
[2021-12-30] MEDS ORDERED: SODIUM CHLORIDE 500 ML IV STA (04:54)
[2021-12-30 06:39] LABS: BASO % 0.5 % (0-2.0); EOS % 2.2 % (0-4.5); HEMATOCRIT 31.6 % (32.4-45.2); HEMOGLOBIN 10.1 GM/dL (10.7-15.3); LYMPH % 42.7 % (8-40); MCH 24.1 pg (25.7-33.7); MCHC 31.9 g/dl (32.0-36.0); MEAN CELL VOLUME 75.5 fl (80-96); MEAN PLT VOLUME 10.2 fl (7.5-11.1); NEUT % 47.6 % (42.8-82.8); PLATELET COUNT 166 10^3/uL (134-434); RBC 4.18 M/mm3 (3.60-5.2); RDW 17.4 % (11.6-15.6); WHITE BLOOD COUNT 4.3 K/mm3 (4.0-10.0)
[2021-12-30] MEDS ORDERED: INSULIN (LEVEMIR) 100 UNITS/ML UNITS SQ SCH (07:00)
[2021-12-30 07:01] LABS: BLOOD UREA NITROGEN 18.2 mg/dL (7-18)
[2021-12-30 07:04] LABS: CREATININE 1.2 mg/dL (0.55-1.3)
[2021-12-30 07:06] LABS: BILIRUBIN,TOTAL 0.4 mg/dL (0.2-1); TOT PROT 6.4 g/dl (6.4-8.2)
[2021-12-30] MEDS: INSULIN SLIDING SCALE (NOVOLOG) 1 VIAL SQ SCH ×4 (07:43→21:20)
[2021-12-30] MEDS ORDERED: VANCOMYCIN 1 GRAM (PRE-DOCKED) 1,000 MG/250 ML BAG IVPB ONE (07:52)
[2021-12-30] MEDS ORDERED: APIXABAN 5 MG TABLET ONE (07:52)
[2021-12-30] MEDS ORDERED: SERTRALINE HCL 50 MG TABLET (FP) ONE (07:52)
[2021-12-30] MEDS ORDERED: NICOTINE 21 MG/24 HOURS TOPICAL PATCH ONE (07:52)
[2021-12-30] MEDS ORDERED: PIPERACILLIN/TAZOB 3.375 GM 3.375 GM/50 ML BAG IVPB ONE (07:53)
[2021-12-30] MEDS: SERTRALINE HCL 50 MG TABLET (FP) PO SCH (08:08)
[2021-12-30] MEDS: APIXABAN 5 MG TABLET PO SCH ×2 (09:12→21:11)
[2021-12-30] MEDS: BICTEGRAV/EMTRICIT/TENOFOV (BIKTARVY) 50-200-25 MG TABLET PO SCH (09:12)
[2021-12-30] MEDS: NICOTINE 21 MG/24 HOURS TOPICAL PATCH TD SCH (09:12)
[2021-12-30] MEDS: FENOFIBRIC ACID 135 MG CAP PO SCH (09:13)
[2021-12-30] MEDS ORDERED: VANCOMYCIN 1 GM in D5W (PRE-DOCKED) 1,000 MG/250 ML IVPB SCH (10:00)
[2021-12-30] MEDS ORDERED: BACITRACIN 15 GM TUBE TOPICAL OINTMENT TP ONE (15:21)
[2021-12-30] MEDS: SODIUM CHLORIDE 1,000 ML IV SCH ×2 (15:39→21:19)
[2021-12-30 17:33] VITALS: BMI 29.1
[2021-12-30] MEDS ORDERED: DEXTROSE 5%-WATER - 50 ML IVPB ONE (18:19)
[2021-12-30] MEDS ORDERED: PIPERACILLIN/TAZOBACTAM 3.375 GM VIAL IVPB ONE (18:19)
[2021-12-30] MEDS: MOMETASONE FUROATE 220 MCG/IH INHALER IH SCH (18:48)
[2021-12-30] MEDS ORDERED: INSULIN (NOVOLOG) ASPART 100 UNITS/ML 10ML VIAL ONE (21:06)
[2021-12-30] MEDS: ACETAMINOPHEN 1000 MG/100 ML BAG IVPB PRN (21:10)
[2021-12-30] MEDS: traZODone HCL 100 MG TABLET (FP) PO SCH (21:11)
[2021-12-30] MEDS: ATORVASTATIN CA 40 MG TABLET (FP) PO SCH (21:11)
[2021-12-30] MEDS: INSULIN (LEVEMIR) 100 UNITS/ML UNITS SQ SCH (21:25)
[2021-12-30] MEDS: VANCOMYCIN 1 GRAM (PRE-DOCKED) 1,000 MG/250 ML BAG IVPB SCH (21:29)
[2021-12-30] MEDS: DOXEPIN HCL 25 MG CAPSULE PO SCH (21:35)
[2021-12-31] MEDS ORDERED: PIPERACILLIN/TAZOBACTAM 3.375 GM VIAL IVPB ONE ×3 (02:00→16:46)
[2021-12-31] MEDS ORDERED: DEXTROSE 5%-WATER - 50 ML IVPB ONE ×3 (02:00→16:46)
[2021-12-31] MEDS: PIPERACILLIN/TAZOB 3.375 GM 3.375 GM in DEXTROSE 5%-WATER - 50 ML IVPB SCH ×4 (02:01→17:18)
[2021-12-31] MEDS: SERTRALINE HCL 50 MG TABLET (FP) PO SCH (06:37)
[2021-12-31] MEDS: INSULIN SLIDING SCALE (NOVOLOG) 1 VIAL SQ SCH ×4 (06:37→21:23)
[2021-12-31 09:37] LABS: BASO % 0.4 % (0-2.0); EOS % 2.5 % (0-4.5); HEMATOCRIT 35.7 % (32.4-45.2); HEMOGLOBIN 11.2 GM/dL (10.7-15.3); LYMPH % 26.8 % (8-40); MCH 23.3 pg (25.7-33.7); MCHC 31.4 g/dl (32.0-36.0); MEAN CELL VOLUME 74.3 fl (80-96); MEAN PLT VOLUME 10.2 fl (7.5-11.1); MONO % 4.7 % (3.8-10.2); NEUT % 65.6 % (42.8-82.8); PLATELET COUNT 192 10^3/uL (134-434); RBC 4.81 M/mm3 (3.60-5.2); RDW 16.8 % (11.6-15.6); WHITE BLOOD COUNT 4.7 K/mm3 (4.0-10.0)
[2021-12-31 09:50] LABS: ALBUMIN 3.5 g/dl (3.4-5.0)
[2021-12-31 09:52] LABS: BLOOD UREA NITROGEN 11.6 mg/dL (7-18); MAGNESIUM 2.1 mg/dL (1.8-2.4)
[2021-12-31 09:55] LABS: CREATININE 1.2 mg/dL (0.55-1.3); PHOSPHOROUS 2.6 mg/dL (2.5-4.9)
[2021-12-31 09:57] LABS: BILIRUBIN,TOTAL 0.4 mg/dL (0.2-1); TOT PROT 7.6 g/dl (6.4-8.2)
[2021-12-31 10:00] LABS: CALCIUM 9.7 mg/dL (8.5-10.1)
[2021-12-31] MEDS ORDERED: VANCOMYCIN 1 GM in D5W (PRE-DOCKED) 1,000 MG/250 ML IVPB SCH (10:00)
[2021-12-31] MEDS: FENOFIBRIC ACID 135 MG CAP PO SCH (10:27)
[2021-12-31] MEDS: APIXABAN 5 MG TABLET PO SCH ×2 (10:27→21:19)
[2021-12-31] MEDS: NICOTINE 21 MG/24 HOURS TOPICAL PATCH TD SCH (10:27)
[2021-12-31] MEDS: BICTEGRAV/EMTRICIT/TENOFOV (BIKTARVY) 50-200-25 MG TABLET PO SCH (10:28)
[2021-12-31] MEDS: VANCOMYCIN 1 GRAM (PRE-DOCKED) 1,000 MG/250 ML BAG IVPB SCH ×2 (10:29→21:20)
[2021-12-31] MEDS: ACETAMINOPHEN 1000 MG/100 ML BAG IVPB PRN (14:07)
[2021-12-31] MEDS: MOMETASONE FUROATE 220 MCG/IH INHALER IH SCH (17:27)
[2021-12-31] MEDS: INSULIN (LEVEMIR) 100 UNITS/ML UNITS SQ SCH (21:19)
[2021-12-31] MEDS: DOXEPIN HCL 25 MG CAPSULE PO SCH (21:19)
[2021-12-31] MEDS: ATORVASTATIN CA 40 MG TABLET (FP) PO SCH (21:19)
[2021-12-31] MEDS: traZODone HCL 100 MG TABLET (FP) PO SCH (21:19)
[2021-12-31] MEDS: SODIUM CHLORIDE 1,000 ML IV SCH (21:22)
[2022-01-01] MEDS ORDERED: DEXTROSE 5%-WATER - 50 ML IVPB ONE ×3 (01:26→18:36)
[2022-01-01] MEDS ORDERED: PIPERACILLIN/TAZOBACTAM 3.375 GM VIAL IVPB ONE ×3 (01:26→18:36)
[2022-01-01] MEDS: PIPERACILLIN/TAZOB 3.375 GM 3.375 GM in DEXTROSE 5%-WATER - 50 ML IVPB SCH ×3 (01:28→18:38)
[2022-01-01] MEDS ORDERED: ACETAMINOPHEN 325 MG TABLET (FP) PO PRN ×2 (01:53→05:28)
[2022-01-01] MEDS: SERTRALINE HCL 50 MG TABLET (FP) PO SCH (07:08)
[2022-01-01] MEDS: INSULIN SLIDING SCALE (NOVOLOG) 1 VIAL SQ SCH ×4 (07:08→21:30)
[2022-01-01 09:48] LABS: BASO % 0.2 % (0-2.0); EOS % 1.6 % (0-4.5); HEMATOCRIT 36.5 % (32.4-45.2); HEMOGLOBIN 11.5 GM/dL (10.7-15.3); LYMPH % 26.7 % (8-40); MCH 23.6 pg (25.7-33.7); MCHC 31.6 g/dl (32.0-36.0); MEAN CELL VOLUME 74.6 fl (80-96); MEAN PLT VOLUME 10.4 fl (7.5-11.1); MONO % 5.5 % (3.8-10.2); PLATELET COUNT 175 10^3/uL (134-434); RBC 4.89 M/mm3 (3.60-5.2); WHITE BLOOD COUNT 4.4 K/mm3 (4.0-10.0)
[2022-01-01] MEDS: NICOTINE 21 MG/24 HOURS TOPICAL PATCH TD SCH (11:00)
[2022-01-01] MEDS: BICTEGRAV/EMTRICIT/TENOFOV (BIKTARVY) 50-200-25 MG TABLET PO SCH (11:00)
[2022-01-01] MEDS: APIXABAN 5 MG TABLET PO SCH ×2 (11:00→21:19)
[2022-01-01] MEDS: VANCOMYCIN 1 GRAM (PRE-DOCKED) 1,000 MG/250 ML BAG IVPB SCH ×2 (11:01→21:20)
[2022-01-01] MEDS: FENOFIBRIC ACID 135 MG CAP PO SCH (11:01)
[2022-01-01] MEDS: MOMETASONE FUROATE 220 MCG/IH INHALER IH SCH (18:39)
[2022-01-01] MEDS: traZODone HCL 100 MG TABLET (FP) PO SCH (21:19)
[2022-01-01] MEDS: ATORVASTATIN CA 40 MG TABLET (FP) PO SCH (21:19)
[2022-01-01] MEDS: INSULIN (LEVEMIR) 100 UNITS/ML UNITS SQ SCH (21:19)
[2022-01-01] MEDS: DOXEPIN HCL 25 MG CAPSULE PO SCH (21:20)
[2022-01-02] MEDS ORDERED: PIPERACILLIN/TAZOBACTAM 3.375 GM VIAL IVPB ONE ×2 (00:57→10:12)
[2022-01-02] MEDS ORDERED: DEXTROSE 5%-WATER - 50 ML IVPB ONE ×2 (00:57→10:12)
[2022-01-02] MEDS: PIPERACILLIN/TAZOB 3.375 GM 3.375 GM in DEXTROSE 5%-WATER - 50 ML IVPB SCH ×2 (01:04→10:35)
[2022-01-02] MEDS: SERTRALINE HCL 50 MG TABLET (FP) PO SCH (06:32)
[2022-01-02] MEDS: INSULIN SLIDING SCALE (NOVOLOG) 1 VIAL SQ SCH ×2 (06:34→11:21)
[2022-01-02 08:58] VITALS: BP 112/90; PULSE 80; TEMP 97.7
[2022-01-02 09:54] LABS: BASO % 0.3 % (0-2.0); EOS % 1.1 % (0-4.5); HEMATOCRIT 34.6 % (32.4-45.2); HEMOGLOBIN 11.4 GM/dL (10.7-15.3); LYMPH % 20.7 % (8-40); MCH 24.1 pg (25.7-33.7); MCHC 32.9 g/dl (32.0-36.0); MEAN CELL VOLUME 73.4 fl (80-96); MEAN PLT VOLUME 9.8 fl (7.5-11.1); MONO % 6.6 % (3.8-10.2); NEUT % 71.3 % (42.8-82.8); PLATELET COUNT 192 10^3/uL (134-434); RBC 4.72 M/mm3 (3.60-5.2); RDW 17.1 % (11.6-15.6)
[2022-01-02] MEDS: APIXABAN 5 MG TABLET PO SCH (10:18)
[2022-01-02] MEDS: NICOTINE 21 MG/24 HOURS TOPICAL PATCH TD SCH (10:18)
[2022-01-02] MEDS: FENOFIBRIC ACID 135 MG CAP PO SCH (10:19)
[2022-01-02] MEDS: BICTEGRAV/EMTRICIT/TENOFOV (BIKTARVY) 50-200-25 MG TABLET PO SCH (10:20)
[2022-01-02] MEDS ORDERED: AMOX TR/POT CLAV 875MG/125MG TABLETS (FP) PO ONE (10:31)
[2022-01-02 10:35] LABS: BLOOD UREA NITROGEN 13.3 mg/dL (7-18); MAGNESIUM 2.1 mg/dL (1.8-2.4)
[2022-01-02] MEDS: VANCOMYCIN 1 GRAM (PRE-DOCKED) 1,000 MG/250 ML BAG IVPB SCH (10:35)
[2022-01-02 10:37] LABS: CALCIUM 9.6 mg/dL (8.5-10.1)
[2022-01-02 10:38] LABS: CREATININE 1.4 mg/dL (0.55-1.3); PHOSPHOROUS 3.7 mg/dL (2.5-4.9)
== END 2022-01-02 14:48 | disposition home or self-care (01) | DRG 603 ==
LOC: JER 12:53 → JERFT 12:53 → JERBED 19:29 → J6S 12-30 14:11
PROVIDERS: ADMIT Internal Medicine; ATTEND Internal Medicine
DX: L03.115 Cellulitis of right lower limb (principal); L02.611 Cutaneous abscess of right foot; N17.9 Acute kidney failure, unspecified; I25.10 Atherosclerotic heart disease of native coronary artery without angina pectoris; E78.5 Hyperlipidemia, unspecified; E86.0 Dehydration; F17.200 Nicotine dependence, unspecified, uncomplicated; M77.31 Calcaneal spur, right foot; K57.90 Diverticulosis of intestine, part unspecified, without perforation or abscess without bleeding; I12.9 Hypertensive chronic kidney disease with stage 1 through stage 4 chronic kidney disease, or unspecified chronic kidney disease; N18.9 Chronic kidney disease, unspecified; E11.51 Type 2 diabetes mellitus with diabetic peripheral angiopathy without gangrene; E11.22 Type 2 diabetes mellitus with diabetic chronic kidney disease; Z21 Asymptomatic human immunodeficiency virus [HIV] infection status; F32.A Depression, unspecified; Z86.718 Personal history of other venous thrombosis and embolism
CPT/HCPCS: 0241U-QW; 36415; 73630-TC-RT-FY; 73700-TC-RT; 80048; 80053; 82962; 83036; 83690; 83735; 84100; 85025; 85610; 85651; 86140; 87040; 87070; 87205; 93005; 93010; 97116-GP; 97162-GP; 99285-25; G0480

== ENCOUNTER 2022-01-25 17:30 | Inpatient (IN) | payer OTHER ==
[2022-01-25] MEDS ORDERED: ACETAMINOPHEN 1000 MG/100 ML BAG IVPB ONE (19:13)
[2022-01-25] MEDS ORDERED: VANCOMYCIN 1,000 MG in DEXTROSE 5%-WATER - 250 ML IVPB ONE (19:13)
[2022-01-25] MEDS ORDERED: PIPERACILLIN/TAZOB 4.5 GM 4.5 GM in DEXTROSE 5%-WATER 100 ML IVPB ONE (19:14)
[2022-01-25 19:50] LABS: BASO % 0.9 % (0-2.0); EOS % 2.8 % (0-4.5); HEMATOCRIT 33.4 % (32.4-45.2); HEMOGLOBIN 10.9 GM/dL (10.7-15.3); LYMPH % 28.8 % (8-40); MCH 24.3 pg (25.7-33.7); MCHC 32.5 g/dl (32.0-36.0); MEAN CELL VOLUME 74.9 fl (80-96); MEAN PLT VOLUME 9.1 fl (7.5-11.1); MONO % 5.6 % (3.8-10.2); NEUT % 61.9 % (42.8-82.8); PLATELET COUNT 201 10^3/uL (134-434); RBC 4.47 M/mm3 (3.60-5.2); RDW 17.9 % (11.6-15.6)
[2022-01-25] MEDS ORDERED: ACETAMINOPHEN INJECTION 100 ML IVPB ONE (20:09)
[2022-01-25 20:17] LABS: CALCIUM 8.4 mg/dL (8.5-10.1)
[2022-01-25] MEDS ORDERED: ACETAMINOPHEN 325 MG TABLET (FP) PO PRN (20:17)
[2022-01-25 20:18] LABS: ALBUMIN 3.2 g/dl (3.4-5.0); BLOOD UREA NITROGEN 16.6 mg/dL (7-18)
[2022-01-25 20:21] LABS: CREATININE 1.5 mg/dL (0.55-1.3)
[2022-01-25 20:23] LABS: BILIRUBIN,TOTAL 0.2 mg/dL (0.2-1); TOT PROT 7.1 g/dl (6.4-8.2)
[2022-01-25] MEDS ORDERED: PIPERACILLIN/TAZOB 4.5 GM 4.5 GM/100 ML BAG IVPB ONE (20:24)
[2022-01-25] MEDS ORDERED: ALBUTEROL SO4 HFA INHALER IH PRN (20:51)
[2022-01-25 20:57] LABS: PROTHROMBIN TIME (PATIENT) 11.5 SEC (9.7-13.0)
[2022-01-25 20:59] LABS: ACTIVATED PTT 28.7 SECONDS (25.2-36.5)
[2022-01-25] MEDS ORDERED: VANCOMYCIN/WATER FOR INJ (PEG) 1,000 MG/200 ML BAG IVPB ONE (21:03)
[2022-01-25] MEDS ORDERED: traZODone HCL 100 MG TABLET (FP) PO SCH (22:00)
[2022-01-25] MEDS ORDERED: traZODone HCL 50 MG TABLET (FP) PO SCH (22:00)
[2022-01-25] MEDS ORDERED: ATORVASTATIN CA 40 MG TABLET (FP) ONE (22:37)
[2022-01-25] MEDS ORDERED: APIXABAN 5 MG TABLET ONE (22:37)
[2022-01-25] MEDS: APIXABAN 5 MG TABLET PO SCH (22:42)
[2022-01-25] MEDS: ATORVASTATIN CA 40 MG TABLET (FP) PO SCH (22:42)
[2022-01-25] MEDS ORDERED: INSULIN (NOVOLOG) ASPART 100 UNITS/ML 10ML VIAL ONE (23:20)
[2022-01-25] MEDS ORDERED: INSULIN (LEVEMIR) 100 UNITS/ML UNITS SQ ONE (23:21)
[2022-01-25] MEDS: MOMETASONE FUROATE 220 MCG/IH INHALER IH SCH (23:39)
[2022-01-25] MEDS: INSULIN (LEVEMIR) 100 UNITS/ML UNITS SQ SCH (23:41)
[2022-01-25] MEDS: DOXEPIN HCL 25 MG CAPSULE PO SCH (23:42)
[2022-01-25] MEDS ORDERED: SODIUM CHLORIDE 0.9% 500 ML INFUS.BAG IV ONE (23:49)
[2022-01-26] MEDS ORDERED: ACETAMINOPHEN 325 MG TABLET (FP) ONE (01:07)
[2022-01-26] MEDS ORDERED: DEXTROSE 5%-WATER - 50 ML IVPB ONE ×2 (01:49→09:13)
[2022-01-26] MEDS ORDERED: PIPERACILLIN/TAZOBACTAM 3.375 GM VIAL IVPB ONE ×2 (01:49→09:12)
[2022-01-26] MEDS ORDERED: morphine CARPU-JECT 2 MG/1 ML DISP.SYRIN IM PRN (01:51)
[2022-01-26] MEDS: PIPERACILLIN/TAZOB 3.375 GM 3.375 GM in DEXTROSE 5%-WATER - 50 ML IVPB SCH ×3 (02:07→11:56)
[2022-01-26] MEDS: ACETAMINOPHEN 1000 MG/100 ML BAG IVPB PRN ×2 (04:58→20:48)
[2022-01-26] MEDS: INSULIN SLIDING SCALE (NOVOLOG) 1 VIAL SQ SCH ×3 (06:05→16:58)
[2022-01-26] MEDS ORDERED: SERTRALINE HCL 50 MG TABLET (FP) PO SCH ×4 (07:00→15:29)
[2022-01-26] MEDS: FENOFIBRIC ACID 135 MG CAP PO SCH (09:26)
[2022-01-26] MEDS: SOLIFENACIN SUCCINATE 5 MG TAB PO SCH (09:26)
[2022-01-26] MEDS: PANTOPRAZOLE 40 MG TABLET PO SCH (09:27)
[2022-01-26] MEDS: APIXABAN 5 MG TABLET PO SCH (09:28)
[2022-01-26] MEDS ORDERED: VANCOMYCIN 1 GM in D5W (PRE-DOCKED) 1,000 MG/250 ML IVPB ONE (10:00)
[2022-01-26] MEDS ORDERED: VANCOMYCIN 1 GM in D5W (PRE-DOCKED) 1,000 MG/250 ML IVPB SCH (10:00)
[2022-01-26] MEDS ORDERED: HEPARIN NA (PORCINE) 5,000 UNITS/ML 1ML VIAL IVPUSH ONE (10:18)
[2022-01-26] MEDS ORDERED: HEPARIN NA (PORCINE) 5,000 UNITS/ML 1ML VIAL IVPUSH PRN ×2 (10:18)
[2022-01-26] MEDS ORDERED: SODIUM CHLORIDE 1,000 ML IV SCH (10:30)
[2022-01-26] MEDS ORDERED: HEPARIN INFUSION - 25,000 UNITS/500 ML INFUS.BAG IVPB SCH (10:30)
[2022-01-26 12:01] LABS: HEMATOCRIT 33.8 % (32.4-45.2); HEMOGLOBIN 10.6 GM/dL (10.7-15.3); MCH 23.7 pg (25.7-33.7); MCHC 31.2 g/dl (32.0-36.0); MEAN CELL VOLUME 75.9 fl (80-96); MEAN PLT VOLUME 9.1 fl (7.5-11.1); PLATELET COUNT 167 10^3/uL (134-434); RBC 4.46 M/mm3 (3.60-5.2); RDW 17.9 % (11.6-15.6); WHITE BLOOD COUNT 4.2 K/mm3 (4.0-10.0)
[2022-01-26] MEDS: BICTEGRAV/EMTRICIT/TENOFOV (BIKTARVY) 50-200-25 MG TABLET PO SCH (12:25)
[2022-01-26 12:26] LABS: CALCIUM 9.1 mg/dL (8.5-10.1)
[2022-01-26 12:27] LABS: ALBUMIN 3.2 g/dl (3.4-5.0); BLOOD UREA NITROGEN 18.2 mg/dL (7-18); MAGNESIUM 2.1 mg/dL (1.8-2.4)
[2022-01-26 12:30] LABS: CREATININE 1.3 mg/dL (0.55-1.3); PHOSPHOROUS 3.4 mg/dL (2.5-4.9)
[2022-01-26 12:31] LABS: TOT PROT 7.4 g/dl (6.4-8.2)
[2022-01-26 12:32] LABS: BILIRUBIN,TOTAL 0.3 mg/dL (0.2-1)
[2022-01-26] MEDS ORDERED: traZODone HCL 100 MG TABLET (FP) PO SCH (14:56)
[2022-01-26] MEDS: HEPARIN INFUSION - 25,000 UNITS/500 ML INFUS.BAG IVPB SCH (16:57)
[2022-01-26 19:16] LABS: CALCIUM 8.8 mg/dL (8.5-10.1)
[2022-01-26 19:17] LABS: BLOOD UREA NITROGEN 15.3 mg/dL (7-18)
[2022-01-26 19:20] LABS: CREATININE 1.3 mg/dL (0.55-1.3)
[2022-01-26 20:36] LABS: PH,URINE 5.5 (5.0-8.0); URINE APPEARANCE CLEAR; URINE BILIRUBIN NEGATIVE (NEGATIVE); URINE COLOR YELLOW; URINE GLUCOSE (UA) NEGATIVE (NEGATIVE); URINE KETONE NEGATIVE (NEGATIVE); URINE LEUK ESTERASE NEGATIVE (NEGATIVE); URINE NITRITE NEGATIVE (NEGATIVE); URINE PROTEIN NEGATIVE (NEGATIVE); URINE UROBILINOGEN 0.2 mg/dL (0.2-1.0)
[2022-01-26] MEDS ORDERED: VANCOMYCIN/WATER FOR INJ (PEG) 1,000 MG/200 ML BAG IVPB SCH (21:00)
[2022-01-26] MEDS: ATORVASTATIN CA 40 MG TABLET (FP) PO SCH (21:54)
[2022-01-26] MEDS: DOXEPIN HCL 25 MG CAPSULE PO SCH (21:54)
[2022-01-26] MEDS: MOMETASONE FUROATE 220 MCG/IH INHALER IH SCH (21:56)
[2022-01-26] MEDS: INSULIN (LEVEMIR) 100 UNITS/ML UNITS SQ SCH (21:56)
[2022-01-26] MEDS ORDERED: MELATONIN 5 MG TABLETS PO PRN (22:13)
[2022-01-27] MEDS: ACETAMINOPHEN 1000 MG/100 ML BAG IVPB PRN (04:21)
[2022-01-27] MEDS: INSULIN SLIDING SCALE (NOVOLOG) 1 VIAL SQ SCH ×3 (06:12→16:31)
[2022-01-27] MEDS: SOLIFENACIN SUCCINATE 5 MG TAB PO SCH (10:12)
[2022-01-27] MEDS: BICTEGRAV/EMTRICIT/TENOFOV (BIKTARVY) 50-200-25 MG TABLET PO SCH (10:12)
[2022-01-27] MEDS: PANTOPRAZOLE 40 MG TABLET PO SCH (10:13)
[2022-01-27] MEDS: FENOFIBRIC ACID 135 MG CAP PO SCH (10:13)
[2022-01-27 12:15] LABS: ALBUMIN 3.3 g/dl (3.4-5.0); BILIRUBIN,TOTAL 0.4 mg/dL (0.2-1); BLOOD UREA NITROGEN 13.1 mg/dL (7-18); CALCIUM 9.4 mg/dL (8.5-10.1); CREATININE 1.3 mg/dL (0.55-1.3); TOT PROT 7.6 g/dl (6.4-8.2)
[2022-01-27] MEDS ORDERED: HEPARIN NA (PORCINE) 5,000 UNITS/ML 1ML VIAL ONE (13:34)
[2022-01-27] MEDS: HEPARIN INFUSION - 25,000 UNITS/500 ML INFUS.BAG IVPB SCH (13:59)
[2022-01-27] MEDS ORDERED: MIDAZOLAM HCL 2 MG/2 ML SINGLE DOSE VIAL ONE (15:59)
[2022-01-27] MEDS ORDERED: PROPOFOL 20 ML ONE (15:59)
[2022-01-27] MEDS ORDERED: LIDOCAINE HCL/PF 2% SDV 5ML VIAL ONE (15:59)
[2022-01-27] MEDS ORDERED: ceFAZolin SODIUM 1 GM VIAL IVPB ONE (16:11)
[2022-01-27] MEDS ORDERED: ceFAZolin SODIUM 1 GM VIAL ONE (16:22)
[2022-01-27] MEDS ORDERED: ONDANSETRON 4 MG/2 ML VIAL ONE (18:04)
[2022-01-27] MEDS ORDERED: PROTAMINE SULFATE 50 MG/5 ML VIAL ONE (18:25)
[2022-01-27] MEDS ORDERED: HYDROmorphone HCL CARPU-JECT 2 MG/1 ML DISP.SYRIN IVPUSH PRN ×2 (19:06)
[2022-01-27] MEDS ORDERED: ONDANSETRON 4 MG/2 ML VIAL IVPUSH PRN ×2 (19:06→19:26)
[2022-01-27] MEDS ORDERED: PROMETHAZINE HCL 25 MG/1 ML VIAL IVPUSH PRN (19:06)
[2022-01-27] MEDS ORDERED: HYDROmorphone *PCA* 10MG/50ML DISP.SYRIN PCA SCH (19:15)
[2022-01-27] MEDS ORDERED: LACTATED RINGERS SOLUTION 1,000 ML IV SCH (19:15)
[2022-01-27] MEDS ORDERED: HYDROmorphone *PCA* 10MG/50ML DISP.SYRIN ONE (19:20)
[2022-01-27] MEDS ORDERED: ALBUTEROL SO4 HFA INHALER IH PRN (19:26)
[2022-01-27] MEDS: SODIUM CHLORIDE 1,000 ML IV SCH (19:30)
[2022-01-27] MEDS: HYDROmorphone *PCA* 10MG/50ML DISP.SYRIN PCA SCH (19:39)
[2022-01-27] MEDS ORDERED: ACETAMINOPHEN INJECTION 100 ML IVPB ONE (19:44)
[2022-01-27] MEDS ORDERED: SODIUM CHLORIDE 500 ML IV STA (19:52)
[2022-01-27] MEDS: ACETAMINOPHEN 1000 MG/100 ML BAG IVPB SCH (20:00)
[2022-01-27] MEDS ORDERED: CHLORHEXIDINE GLUCONATE 4% CLEANSER FOR DECOLONIZATION TP SCH (22:00)
[2022-01-27] MEDS ORDERED: MUPIROCIN 2% TOPICAL OINTMENT FOR DECOLONIZATION NS SCH (22:00)
[2022-01-27] MEDS: MUPIROCIN 2% TOPICAL OINTMENT FOR DECOLONIZATION NS SCH (22:44)
[2022-01-27] MEDS: ATORVASTATIN CA 40 MG TABLET (FP) PO SCH (22:44)
[2022-01-27] MEDS: MOMETASONE FUROATE 220 MCG/IH INHALER IH SCH (22:44)
[2022-01-27] MEDS: CHLORHEXIDINE GLUCONATE 4% CLEANSER FOR DECOLONIZATION TP SCH (22:44)
[2022-01-27] MEDS: traZODone HCL 50 MG TABLET (FP) PO SCH (22:44)
[2022-01-27] MEDS: DOXEPIN HCL 25 MG CAPSULE PO SCH (22:44)
[2022-01-27] MEDS: MELATONIN 5 MG TABLETS PO PRN (22:44)
[2022-01-27] MEDS: INSULIN (LEVEMIR) 100 UNITS/ML UNITS SQ SCH (23:53)
[2022-01-28] MEDS: ACETAMINOPHEN 1000 MG/100 ML BAG IVPB SCH ×3 (02:00→13:43)
[2022-01-28] MEDS ORDERED: ceFAZolin SODIUM 1 GM VIAL ONE ×2 (03:12→09:54)
[2022-01-28] MEDS ORDERED: DEXTROSE 5%-WATER - 50 ML IVPB ONE ×2 (03:13→09:54)
[2022-01-28] MEDS: CEFAZOLIN 1 GM in DEXTROSE 5%-WATER - 50 ML IVPB SCH ×2 (03:15→09:56)
[2022-01-28] MEDS: INSULIN SLIDING SCALE (NOVOLOG) 1 VIAL SQ SCH ×3 (07:39→17:45)
[2022-01-28 08:01] LABS: BASO % 0.3 % (0-2.0); HEMATOCRIT 25.7 % (32.4-45.2); HEMOGLOBIN 8.1 GM/dL (10.7-15.3); LYMPH % 21.6 % (8-40); MCH 23.8 pg (25.7-33.7); MCHC 31.6 g/dl (32.0-36.0); MEAN CELL VOLUME 75.3 fl (80-96); MEAN PLT VOLUME 8.9 fl (7.5-11.1); MONO % 5.8 % (3.8-10.2); NEUT % 70.3 % (42.8-82.8); PLATELET COUNT 139 10^3/uL (134-434); RBC 3.42 M/mm3 (3.60-5.2); RDW 17.6 % (11.6-15.6); WHITE BLOOD COUNT 4.8 K/mm3 (4.0-10.0)
[2022-01-28 08:18] LABS: CALCIUM 8.1 mg/dL (8.5-10.1)
[2022-01-28 08:21] LABS: BLOOD UREA NITROGEN 14.1 mg/dL (7-18)
[2022-01-28 08:22] LABS: CREATININE 1.3 mg/dL (0.55-1.3)
[2022-01-28] MEDS: SERTRALINE HCL 50 MG TABLET (FP) PO SCH (09:56)
[2022-01-28] MEDS: PANTOPRAZOLE 40 MG TABLET PO SCH (09:56)
[2022-01-28] MEDS: BICTEGRAV/EMTRICIT/TENOFOV (BIKTARVY) 50-200-25 MG TABLET PO SCH (09:57)
[2022-01-28] MEDS: FENOFIBRIC ACID 135 MG CAP PO SCH (09:57)
[2022-01-28] MEDS: SOLIFENACIN SUCCINATE 5 MG TAB PO SCH (09:58)
[2022-01-28] MEDS: SODIUM CHLORIDE 1,000 ML IV SCH ×2 (10:47→23:18)
[2022-01-28 13:15] LABS: HEMATOCRIT 26.5 % (32.4-45.2); HEMOGLOBIN 8.5 GM/dL (10.7-15.3); MCH 24.2 pg (25.7-33.7); MEAN CELL VOLUME 75.6 fl (80-96); WHITE BLOOD COUNT 5.8 K/mm3 (4.0-10.0)
[2022-01-28 13:16] LABS: MEAN PLT VOLUME 9.2 fl (7.5-11.1); PLATELET COUNT 145 10^3/uL (134-434); RDW 17.4 % (11.6-15.6)
[2022-01-28] MEDS: MUPIROCIN 2% TOPICAL OINTMENT FOR DECOLONIZATION NS SCH ×2 (16:22→23:18)
[2022-01-28] MEDS: MOMETASONE FUROATE 220 MCG/IH INHALER IH SCH (23:18)
[2022-01-28] MEDS: MELATONIN 5 MG TABLETS PO PRN (23:19)
[2022-01-28] MEDS: INSULIN (LEVEMIR) 100 UNITS/ML UNITS SQ SCH (23:19)
[2022-01-28] MEDS: traZODone HCL 50 MG TABLET (FP) PO SCH (23:19)
[2022-01-28] MEDS: ATORVASTATIN CA 40 MG TABLET (FP) PO SCH (23:19)
[2022-01-28] MEDS: CHLORHEXIDINE GLUCONATE 4% CLEANSER FOR DECOLONIZATION TP SCH (23:19)
[2022-01-28] MEDS: HYDROmorphone *PCA* 10MG/50ML DISP.SYRIN PCA SCH (23:40)
[2022-01-28] MEDS: DOXEPIN HCL 25 MG CAPSULE PO SCH (23:40)
[2022-01-29] MEDS: HYDROmorphone *PCA* 10MG/50ML DISP.SYRIN PCA SCH ×2 (01:23→21:53)
[2022-01-29] MEDS: INSULIN SLIDING SCALE (NOVOLOG) 1 VIAL SQ SCH ×4 (06:41→22:02)
[2022-01-29] MEDS: SERTRALINE HCL 50 MG TABLET (FP) PO SCH (09:47)
[2022-01-29] MEDS: FENOFIBRIC ACID 135 MG CAP PO SCH (09:47)
[2022-01-29] MEDS: SOLIFENACIN SUCCINATE 5 MG TAB PO SCH (09:48)
[2022-01-29] MEDS: BICTEGRAV/EMTRICIT/TENOFOV (BIKTARVY) 50-200-25 MG TABLET PO SCH (09:48)
[2022-01-29 10:17] LABS: HEMATOCRIT 25.1 % (32.4-45.2); HEMOGLOBIN 7.9 GM/dL (10.7-15.3); MCHC 31.6 g/dl (32.0-36.0); MEAN PLT VOLUME 9.1 fl (7.5-11.1); PLATELET COUNT 137 10^3/uL (134-434); RDW 17.7 % (11.6-15.6); WHITE BLOOD COUNT 6.9 K/mm3 (4.0-10.0)
[2022-01-29] MEDS: PANTOPRAZOLE 40 MG TABLET PO SCH (10:30)
[2022-01-29] MEDS: MUPIROCIN 2% TOPICAL OINTMENT FOR DECOLONIZATION NS SCH ×2 (10:30→21:55)
[2022-01-29] MEDS: ATORVASTATIN CA 40 MG TABLET (FP) PO SCH (21:54)
[2022-01-29] MEDS: CHLORHEXIDINE GLUCONATE 4% CLEANSER FOR DECOLONIZATION TP SCH (21:55)
[2022-01-29] MEDS: DOXEPIN HCL 25 MG CAPSULE PO SCH (21:55)
[2022-01-29] MEDS: MOMETASONE FUROATE 220 MCG/IH INHALER IH SCH (21:55)
[2022-01-29] MEDS: traZODone HCL 50 MG TABLET (FP) PO SCH (21:55)
[2022-01-29] MEDS: MELATONIN 5 MG TABLETS PO PRN (22:00)
[2022-01-29] MEDS: INSULIN (LEVEMIR) 100 UNITS/ML UNITS SQ SCH (22:13)
[2022-01-30] MEDS: SODIUM CHLORIDE 1,000 ML IV SCH (07:30)
[2022-01-30] MEDS: INSULIN SLIDING SCALE (NOVOLOG) 1 VIAL SQ SCH (07:30)
[2022-01-30 08:01] LABS: HEMATOCRIT 24.3 % (32.4-45.2); HEMOGLOBIN 7.7 GM/dL (10.7-15.3); MCH 24.1 pg (25.7-33.7); MCHC 31.6 g/dl (32.0-36.0); MEAN CELL VOLUME 76.1 fl (80-96); MEAN PLT VOLUME 9.8 fl (7.5-11.1); PLATELET COUNT 160 10^3/uL (134-434); RBC 3.19 M/mm3 (3.60-5.2); RDW 17.8 % (11.6-15.6); WHITE BLOOD COUNT 6.7 K/mm3 (4.0-10.0)
[2022-01-30 08:30] LABS: CALCIUM 9.3 mg/dL (8.5-10.1)
[2022-01-30 08:31] LABS: BLOOD UREA NITROGEN 9.2 mg/dL (7-18)
[2022-01-30 08:33] LABS: CREATININE 1.1 mg/dL (0.55-1.3)
[2022-01-30] MEDS: SERTRALINE HCL 50 MG TABLET (FP) PO SCH (09:18)
[2022-01-30] MEDS: BICTEGRAV/EMTRICIT/TENOFOV (BIKTARVY) 50-200-25 MG TABLET PO SCH (09:18)
[2022-01-30] MEDS: MUPIROCIN 2% TOPICAL OINTMENT FOR DECOLONIZATION NS SCH (09:19)
[2022-01-30] MEDS: PANTOPRAZOLE 40 MG TABLET PO SCH (09:19)
[2022-01-30] MEDS: FENOFIBRIC ACID 135 MG CAP PO SCH (09:20)
[2022-01-30] MEDS: SOLIFENACIN SUCCINATE 5 MG TAB PO SCH (09:20)
[2022-01-30] MEDS ORDERED: APIXABAN 5 MG TABLET PO SCH (10:00)
[2022-01-30 11:52] LABS: HEMATOCRIT 24.8 % (32.4-45.2); HEMOGLOBIN 7.9 GM/dL (10.7-15.3); MCHC 31.7 g/dl (32.0-36.0); MEAN CELL VOLUME 75.5 fl (80-96); MEAN PLT VOLUME 9.2 fl (7.5-11.1); PLATELET COUNT 161 10^3/uL (134-434); RBC 3.28 M/mm3 (3.60-5.2); RDW 17.7 % (11.6-15.6); WHITE BLOOD COUNT 7.9 K/mm3 (4.0-10.0)
[2022-01-30 13:40] VITALS: TEMP 98.6
[2022-01-30 14:00] VITALS: BMI 31.5
[2022-01-30 14:16] VITALS: BP 120/69; PULSE 98; RESP 22
[2022-01-30] MEDS ORDERED: RIVAROXABAN 20 MG TABLET PO SCH (18:00)
== END 2022-01-30 14:00 | disposition home or self-care (01) | DRG 253 ==
LOC: JER 17:30 → JERBED 19:36 → J5S 01-26 01:45 → JICU 01-27 20:54
PROVIDERS: ADMIT Internal Medicine; ATTEND Internal Medicine
PROC: B40FYZZ Plain Radiography of Right Lower Extremity Arteries using Other Contrast (ICD-10-PCS; 2022-01-27)
PROC: 041K0JL Bypass Right Femoral Artery to Popliteal Artery with Synthetic Substitute, Open Approach (ICD-10-PCS; principal; 2022-01-27 15:00)
DX: I70.711 Atherosclerosis of other type of bypass graft(s) of the extremities with intermittent claudication, right leg (principal); N17.9 Acute kidney failure, unspecified; B20 Human immunodeficiency virus [HIV] disease; I25.10 Atherosclerotic heart disease of native coronary artery without angina pectoris; E78.5 Hyperlipidemia, unspecified; J45.909 Unspecified asthma, uncomplicated; E11.51 Type 2 diabetes mellitus with diabetic peripheral angiopathy without gangrene; I12.9 Hypertensive chronic kidney disease with stage 1 through stage 4 chronic kidney disease, or unspecified chronic kidney disease; E11.22 Type 2 diabetes mellitus with diabetic chronic kidney disease; N18.9 Chronic kidney disease, unspecified; K57.90 Diverticulosis of intestine, part unspecified, without perforation or abscess without bleeding; L03.031 Cellulitis of right toe; J45.40 Moderate persistent asthma, uncomplicated; F41.8 Other specified anxiety disorders; L60.0 Ingrowing nail; Z89.612 Acquired absence of left leg above knee; R94.31 Abnormal electrocardiogram [ECG] [EKG]; Z86.718 Personal history of other venous thrombosis and embolism; Z95.5 Presence of coronary angioplasty implant and graft; Z99.3 Dependence on wheelchair
CPT/HCPCS: 36415; 73590-TC-RT-FY; 73630-TC-RT-FY; 75635-TC; 76775-TC; 80048; 80053; 81003; 82436; 82550; 82570; 82728; 82962; 83036; 83540; 83550; 83605; 83735; 83935; 84100; 84133; 84156; 84300; 84466; 85025; 85027; 85610; 85730; 86850; 86900; 86901; 86922; 87040; 93005; 93010; 94010; 94760; 99285-25; C9803-CS; J1644; Q9967; U0003; U0005

== ENCOUNTER 2022-03-20 14:23 | Emergency (ER) | payer OTHER ==
[2022-03-20 14:37] VITALS: BP 96/64; PULSE 117; RESP 18; TEMP 98.3; BMI 27.3
[2022-03-20] MEDS: ONDANSETRON *ODT* 4 MG TABLET SL ONE ×2 (15:22→15:24)
[2022-03-20 17:06] LABS: BASO % 0.2 % (0-2.0); EOS % 0.1 % (0-4.5); HEMATOCRIT 32.2 % (32.4-45.2); HEMOGLOBIN 10.2 GM/dL (10.7-15.3); LYMPH % 9.7 % (8-40); MCH 23.4 pg (25.7-33.7); MCHC 31.7 g/dl (32.0-36.0); MEAN CELL VOLUME 73.6 fl (80-96); MONO % 2.6 % (3.8-10.2); NEUT % 87.4 % (42.8-82.8); PLATELET COUNT 178 10^3/uL (134-434); RBC 4.38 M/mm3 (3.60-5.2); RDW 17.3 % (11.6-15.6); WHITE BLOOD COUNT 9.5 K/mm3 (4.0-10.0)
[2022-03-20 17:32] LABS: ALBUMIN 3.1 g/dl (3.4-5.0); BLOOD UREA NITROGEN 16.2 mg/dL (7-18)
[2022-03-20 17:35] LABS: CREATININE 1.6 mg/dL (0.55-1.3)
[2022-03-20 17:37] LABS: BILIRUBIN,TOTAL 0.4 mg/dL (0.2-1); TOT PROT 7.5 g/dl (6.4-8.2)
== END 2022-03-20 17:48 | disposition left against medical advice (07) ==
LOC: JER 14:23
DX: R51.9 Headache, unspecified (principal); R11.2 Nausea with vomiting, unspecified; R19.7 Diarrhea, unspecified
CPT/HCPCS: 0241U-QW; 36415; 80053; 85025; 99283-25; Q0162

== ENCOUNTER 2022-04-30 23:36 | Inpatient (IN) | payer OTHER ==
[2022-04-30 23:42] VITALS: BMI 27.9
[2022-05-01] MEDS ORDERED: SODIUM CHLORIDE 0.9% 500 ML INFUS.BAG IV ONE ×2 (00:03→00:58)
[2022-05-01] MEDS ORDERED: ACETAMINOPHEN 1000 MG/100 ML BAG IVPB ONE (00:03)
[2022-05-01] MEDS ORDERED: ACETAMINOPHEN INJECTION 100 ML IVPB ONE (00:28)
[2022-05-01 00:49] LABS: BASO % 0.2 % (0-2.0); EOS % 0.9 % (0-4.5); HEMATOCRIT 36.7 % (32.4-45.2); HEMOGLOBIN 11.8 GM/dL (10.7-15.3); LYMPH % 15.8 % (8-40); MCH 23.1 pg (25.7-33.7); MCHC 32.2 g/dl (32.0-36.0); MEAN CELL VOLUME 71.9 fl (80-96); MEAN PLT VOLUME 9.6 fl (7.5-11.1); MONO % 4.7 % (3.8-10.2); NEUT % 78.4 % (42.8-82.8); PLATELET COUNT 259 10^3/uL (134-434); RDW 18.2 % (11.6-15.6); WHITE BLOOD COUNT 11.9 K/mm3 (4.0-10.0)
[2022-05-01 01:00] LABS: INR 1.65 (0.83-1.09); PROTHROMBIN TIME (PATIENT) 19.1 SEC (9.7-13.0)
[2022-05-01 01:03] LABS: ACTIVATED PTT 35.9 SECONDS (25.2-36.5)
[2022-05-01 01:08] LABS: CHLORIDE 95 mmol/L (98-107); SODIUM 136 mmol/L (136-145)
[2022-05-01 01:10] LABS: CALCIUM 10.6 mg/dL (8.5-10.1)
[2022-05-01 01:11] LABS: ANION GAP 7 MMOL/L (8-16); BLOOD UREA NITROGEN 15.4 mg/dL (7-18); CO2 34 mmol/L (21-32)
[2022-05-01 01:14] LABS: CREATININE 1.6 mg/dL (0.55-1.3); SGOT/AST 12 U/L (15-37); SGPT/ALT 15 U/L (13-61)
[2022-05-01 01:15] LABS: BILIRUBIN,TOTAL 0.2 mg/dL (0.2-1)
[2022-05-01 01:16] LABS: TOT PROT 8.7 g/dl (6.4-8.2)
[2022-05-01 01:17] LABS: ALK PHOS 89 U/L (45-117)
[2022-05-01 01:21] LABS: VENOUS O2 SATURATION 22.4 % (70-80); VENOUS PCO2 56.5 mmHg (38-52); VENOUS PH 7.39 (7.310-7.410)
[2022-05-01] MEDS ORDERED: POTASSIUM CHLORIDE TABS 20 MEQ TABLET.ER (FP) PO ONE (01:25)
[2022-05-01 01:39] LABS: LIPASE 1103 U/L (73-393)
[2022-05-01 01:57] LABS: GLUCOSE,RANDOM 49 mg/dL (74-106)
[2022-05-01] MEDS ORDERED: DEXTROSE 50%-WATER - 25 GM/50 ML VIAL IVPUSH ONE (01:58)
[2022-05-01] MEDS ORDERED: DEXTROSE 50%-WATER 25 GM/50 ML DISP.SYRIN ONE (01:59)
[2022-05-01] MEDS ORDERED: KCL 10 MEQ IVPB 10 MEQ/100 ML INFUS.BAG IVPB ONE ×3 (02:10→08:43)
[2022-05-01] MEDS ORDERED: POTASSIUM CHLORIDE ORAL LIQUID 20 MEQ/15 ML ONE (02:10)
[2022-05-01] MEDS: KCL 10 MEQ IVPB 10 MEQ/100 ML INFUS.BAG IVPB SCH ×3 (02:47→10:07)
[2022-05-01] MEDS ORDERED: LACTATED RINGERS SOLUTION 1,000 ML/1,000 ML INFUS.BAG IV SCH ×4 (04:15→06:30)
[2022-05-01] MEDS ORDERED: morphine CARPU-JECT 2 MG/1 ML DISP.SYRIN IVPUSH ONE ×2 (04:28→05:25)
[2022-05-01] MEDS ORDERED: morphine SULFATE 4 MG/ML VIAL ONE (04:32)
[2022-05-01 05:05] LABS: TRIGLYCERIDES 349 mg/dL (0-150)
[2022-05-01 06:15] LABS: URINE APPEARANCE CLEAR; URINE BILIRUBIN NEGATIVE (NEGATIVE); URINE COLOR YELLOW; URINE GLUCOSE (UA) TRACE (NEGATIVE); URINE KETONE NEGATIVE (NEGATIVE); URINE LEUK ESTERASE NEGATIVE (NEGATIVE); URINE NITRITE NEGATIVE (NEGATIVE); URINE PROTEIN NEGATIVE (NEGATIVE); URINE UROBILINOGEN 0.2 mg/dL (0.2-1.0)
[2022-05-01] MEDS ORDERED: ACETAMINOPHEN 1000 MG/100 ML BAG IVPB PRN (06:26)
[2022-05-01] MEDS ORDERED: ALBUTEROL SO4 HFA INHALER IH PRN (06:47)
[2022-05-01] MEDS ORDERED: LORATADINE 10 MG TABLET PO PRN (06:47)
[2022-05-01] MEDS ORDERED: HYDROmorphone HCl 2 MG/ML VIAL ONE (07:28)
[2022-05-01] MEDS: HYDROmorphone HCl 2 MG/ML VIAL IVPB PRN ×2 (07:43→21:23)
[2022-05-01] MEDS ORDERED: APIXABAN 5 MG TABLET PO SCH (10:00)
[2022-05-01] MEDS ORDERED: ENOXAPARIN NA (PORCINE) 40 MG/0.4 ML DISP.SYRIN SQ SCH (10:00)
[2022-05-01] MEDS ORDERED: PANTOPRAZOLE 40 MG TABLET PO SCH (10:00)
[2022-05-01] MEDS ORDERED: PANTOPRAZOLE SODIUM 40 MG VIAL IVPUSH SCH (10:00)
[2022-05-01] MEDS: INSULIN SLIDING SCALE (NOVOLOG) 1 VIAL SQ SCH ×3 (10:07→19:37)
[2022-05-01 13:28] LABS: BASO % 0.7 % (0-2.0); EOS % 1.4 % (0-4.5); HEMATOCRIT 32.2 % (32.4-45.2); HEMOGLOBIN 10.1 GM/dL (10.7-15.3); LYMPH % 20.3 % (8-40); MCH 22.7 pg (25.7-33.7); MCHC 31.3 g/dl (32.0-36.0); MEAN CELL VOLUME 72.7 fl (80-96); MEAN PLT VOLUME 9.5 fl (7.5-11.1); MONO % 5.1 % (3.8-10.2); NEUT % 72.5 % (42.8-82.8); PLATELET COUNT 208 10^3/uL (134-434); RBC 4.43 M/mm3 (3.60-5.2)
[2022-05-01 13:49] LABS: CALCIUM 9.3 mg/dL (8.5-10.1)
[2022-05-01 13:50] LABS: ALBUMIN 3.2 g/dl (3.4-5.0); BLOOD UREA NITROGEN 11.7 mg/dL (7-18); MAGNESIUM 2.2 mg/dL (1.8-2.4)
[2022-05-01 13:53] LABS: CREATININE 1.2 mg/dL (0.55-1.3); PHOSPHOROUS 2.2 mg/dL (2.5-4.9)
[2022-05-01 13:54] LABS: BILIRUBIN,TOTAL 0.4 mg/dL (0.2-1)
[2022-05-01] MEDS ORDERED: MEROPENEM 1 GM VIAL (RESTRICTED TO ID) IVPB ONE (16:28)
[2022-05-01] MEDS: MEROPENEM 1 GM in DEXTROSE 5%-WATER 100 ML IVPB SCH ×2 (16:30→18:00)
[2022-05-01] MEDS ORDERED: RIVAROXABAN 20 MG TABLET PO SCH (18:00)
[2022-05-01] MEDS ORDERED: traZODone HCL 150 MG TABLET PO SCH (22:00)
[2022-05-01] MEDS ORDERED: traZODone HCL 50 MG TABLET (FP) PO SCH (22:00)
[2022-05-01] MEDS ORDERED: MOMETASONE FUROATE 220 MCG/IH INHALER IH SCH (22:00)
[2022-05-01] MEDS ORDERED: ATORVASTATIN CA 40 MG TABLET (FP) PO SCH (22:00)
[2022-05-02] MEDS: MEROPENEM 1 GM in DEXTROSE 5%-WATER 100 ML IVPB SCH ×2 (02:39→11:09)
[2022-05-02] MEDS: HYDROmorphone HCl 2 MG/ML VIAL IVPB PRN (04:36)
[2022-05-02] MEDS: INSULIN SLIDING SCALE (NOVOLOG) 1 VIAL SQ SCH ×3 (05:06→11:09)
[2022-05-02 07:36] VITALS: RESP 20
[2022-05-02 12:27] VITALS: TEMP 98.8
[2022-05-05 07:57] VITALS: BP 113/61; PULSE 80
== END 2022-05-02 15:02 | disposition left against medical advice (07) | DRG 439 ==
LOC: JER 23:36 → JERBED 05-01 04:04 → J5S 05-01 19:49
PROVIDERS: ADMIT Internal Medicine; ATTEND Internal Medicine
DX: K85.30 Drug induced acute pancreatitis without necrosis or infection (principal); B20 Human immunodeficiency virus [HIV] disease; E11.649 Type 2 diabetes mellitus with hypoglycemia without coma; R10.9 Unspecified abdominal pain; T38.3X5A Adverse effect of insulin and oral hypoglycemic [antidiabetic] drugs, initial encounter; Z89.619 Acquired absence of unspecified leg above knee; E78.1 Pure hyperglyceridemia; F41.8 Other specified anxiety disorders; Y92.89 Other specified places as the place of occurrence of the external cause; E87.6 Hypokalemia; E78.5 Hyperlipidemia, unspecified; K21.9 Gastro-esophageal reflux disease without esophagitis
CPT/HCPCS: 0241U-QW; 36415; 71045-TC-FY; 74177-TC; 74183-TC; 80053; 81003; 82803; 82962; 83605; 83690; 83735; 84100; 84478; 84484; 85025; 85610; 85730; 87040; 87086; 93005; 93010; 99285-25; A9579

== ENCOUNTER 2022-10-10 04:15 | Day surgery (SDC) | payer OTHER ==
[2022-10-09 15:12] VITALS: BMI 29.2
[~2022-10-10 04:15] MED LIST changes: +ACETAMINOPHEN 500 MG TABLET (FP) PO PRN; +BUPIVACAINE HCL/PF 0.75% 10 ML VIAL PNB ONE; -HEPARIN NA (PORCINE) 5,000 UNITS/ML 1ML VIAL SQ ONE; +LIDOCAINE 1% P/F 10 MG/ML VIAL INF ONE; -LIDOCAINE HCL 1%, 10 MG/ML (20ML VIAL) INF ONE
[2022-10-10 09:08] VITALS: RESP 18
[2022-10-10] MEDS ORDERED: BUPIVACAINE HCL/PF 0.75% 10 ML VIAL PNB ONE (10:28)
[2022-10-10] MEDS ORDERED: LIDOCAINE 1% P/F 10 MG/ML VIAL INF ONE (10:28)
[2022-10-10 12:39] VITALS: TEMP 97.7
[2022-10-10 12:46] VITALS: BP 108/57; PULSE 78
== END 2022-10-10 11:17 | disposition home or self-care (01) ==
LOC: JASU-SURG 04:15
PROVIDERS: ATTEND Pain Medicine Pain Medicine
CPT/HCPCS: 76000-TC-FY

== ENCOUNTER 2022-11-20 04:02 | Day surgery (SDC) | payer OTHER ==
[2022-11-15 12:40] VITALS: BMI 28.3
[2022-11-20] MEDS ORDERED: LIDOCAINE HCL 1%, 10 MG/ML (10ML VIAL) MDV ONE (07:08)
[2022-11-20] MEDS ORDERED: BUPIVACAINE HCL/PF 0.5% (5MG/ML) 10 ML VIAL ONE (07:09)
[2022-11-20] MEDS ORDERED: MIDAZOLAM HCL 2 MG/2 ML SINGLE DOSE VIAL ONE (07:37)
[2022-11-20] MEDS ORDERED: PROPOFOL 80 ML ONE (07:37)
[2022-11-20] MEDS ORDERED: ceFAZolin SODIUM 1 GM VIAL IVPB ONE (08:11)
[2022-11-20] MEDS ORDERED: BUPIVACAINE HCL/PF 0.5% (5MG/ML) 10 ML VIAL NR ONE (08:25)
[2022-11-20] MEDS ORDERED: LIDOCAINE HCL 1%, 10 MG/ML (20ML VIAL) INF ONE (08:25)
[2022-11-20] MEDS ORDERED: ONDANSETRON 4 MG/2 ML VIAL IVPUSH PRN (09:12)
[2022-11-20] MEDS ORDERED: oxyCODONE HCL 5 MG TABLET PO PRN (09:12)
[2022-11-20] MEDS ORDERED: LACTATED RINGERS SOLUTION 1,000 ML IV SCH (09:15)
[2022-11-20 10:44] VITALS: RESP 20
[2022-11-20 12:59] VITALS: BP 118/79; PULSE 90; TEMP 96.9
== END 2022-11-20 13:10 | disposition home or self-care (01) ==
LOC: JASU-SURG 04:02
PROVIDERS: ATTEND Orthopaedic Surgery
PROC: 0LN70ZZ Release Right Hand Tendon, Open Approach (ICD-10-PCS; 2022-11-20)
PROC: 01N50ZZ Release Median Nerve, Open Approach (ICD-10-PCS; principal; 2022-11-20 08:00)
DX: G56.01 Carpal tunnel syndrome, right upper limb (principal); M65.311 Trigger thumb, right thumb
CPT/HCPCS: 82962; 88304-TC; 94760

== ENCOUNTER 2022-12-01 04:18 | Day surgery (SDC) | payer OTHER ==
[2022-11-30 09:01] VITALS: BMI 28.3
[2022-12-01 08:04] VITALS: RESP 18
[2022-12-01] MEDS ORDERED: LIDOCAINE HCL 1% PRESERVATIVE FREE - 30ML VIAL IJ ONE ×3 (08:06→08:59)
[2022-12-01 11:14] VITALS: BP 119/68; PULSE 78; TEMP 98.3
[2022-12-01] MEDS ORDERED: ACETAMINOPHEN 500 MG TABLET (FP) PO PRN (14:35)
== END 2022-12-01 10:12 | disposition home or self-care (01) ==
LOC: JASU-SURG 04:18
PROVIDERS: ATTEND Pain Medicine Pain Medicine
PROC: 01HY0MZ Insertion of Neurostimulator Lead into Peripheral Nerve, Open Approach (ICD-10-PCS; principal; 2022-12-01 08:45)
DX: G89.4 Chronic pain syndrome (principal); M54.50 Low back pain, unspecified
CPT/HCPCS: 64555; C1778; 76000-TC-FY

== ENCOUNTER 2022-12-16 15:51 | Emergency (ER) | payer OTHER ==
[2022-12-16 16:02] VITALS: BP 129/70; PULSE 88; RESP 18; TEMP 98; BMI 30.2
== END 2022-12-16 18:08 | disposition home or self-care (01) ==
LOC: JERFT 15:51
DX: S93.401A Sprain of unspecified ligament of right ankle, initial encounter (principal); M25.571 Pain in right ankle and joints of right foot; X50.1XXA Overexertion from prolonged static or awkward postures, initial encounter
CPT/HCPCS: 73610-TC-RT-FY; 73630-TC-RT-FY; 99283-25

== ENCOUNTER → 2022-12-19 | Day surgery (SDC) | payer OTHER ==
[2022-12-15 12:38] VITALS: BMI 28.3
[~2022-12-19] MED LIST changes: +BUPIVACAINE HCL/PF 0.75% 10 ML VIAL NR ONE; +BUPIVACAINE HCL/PF 0.75% 10 ML VIAL ONE; -BUPIVACAINE HCL/PF 0.75% 10 ML VIAL PNB ONE; -LIDOCAINE 1% P/F 10 MG/ML VIAL INF ONE; +LIDOCAINE HCL 1% PRESERVATIVE FREE - 30ML VIAL IJ ONE; +LIDOCAINE HCL/PF 1% SDV 5ML VIAL ONE
== END | disposition home or self-care (01) ==
LOC: JASU-SURG 04:11
PROVIDERS: ATTEND Pain Medicine Pain Medicine
PROC: 3E033GC Introduction of Other Therapeutic Substance into Peripheral Vein, Percutaneous Approach (ICD-10-PCS; principal; 2022-12-19)
DX: Z53.8 Procedure and treatment not carried out for other reasons (principal)

== ENCOUNTER → 2023-01-03 | Day surgery (SDC) | payer OTHER ==
[2022-12-29 11:41] VITALS: BMI 30.4
[~2023-01-03] MED LIST changes: -ACETAMINOPHEN 500 MG TABLET (FP) PO PRN; +BUPIVACAINE HCL/PF 0.5% (5MG/ML) 10 ML VIAL ONE; -BUPIVACAINE HCL/PF 0.75% 10 ML VIAL NR ONE; -BUPIVACAINE HCL/PF 0.75% 10 ML VIAL ONE; -LIDOCAINE HCL 1% PRESERVATIVE FREE - 30ML VIAL IJ ONE; +LIDOCAINE HCL 1%, 10 MG/ML (10ML VIAL) MDV ONE; -LIDOCAINE HCL/PF 1% SDV 5ML VIAL ONE; +MIDAZOLAM HCL 2 MG/2 ML SINGLE DOSE VIAL ONE; +PROPOFOL 20 ML ONE
== END | disposition home or self-care (01) ==
LOC: JASU-SURG 05:16
PROVIDERS: ATTEND Orthopaedic Surgery
DX: Z53.8 Procedure and treatment not carried out for other reasons (principal)

== ENCOUNTER 2023-02-22 13:19 | Inpatient (IN) | payer OTHER ==
[2023-02-22] MEDS ORDERED: SODIUM CHLORIDE 0.9% 500 ML INFUS.BAG IV ONE (14:26)
[2023-02-22] MEDS ORDERED: ACETAMINOPHEN 1000 MG/100 ML BAG IVPB ONE (14:27)
[2023-02-22] MEDS ORDERED: ACETAMINOPHEN INJECTION 100 ML IVPB ONE (14:35)
[2023-02-22 15:07] LABS: BASO % 0.2 % (0-2.0); EOS % 0.5 % (0-4.5); HEMATOCRIT 39.8 % (32.4-45.2); HEMOGLOBIN 12.2 GM/dL (10.7-15.3); LYMPH % 10.1 % (8-40); MCH 23.1 pg (25.7-33.7); MCHC 30.7 g/dl (32.0-36.0); MEAN CELL VOLUME 75.2 fl (80-96); MONO % 3.6 % (3.8-10.2); NEUT % 85.6 % (42.8-82.8); PLATELET COUNT 185 10^3/uL (134-434); RDW 19.2 % (11.6-15.6); WHITE BLOOD COUNT 12.5 K/mm3 (4.0-10.0)
[2023-02-22 15:32] LABS: POTASSIUM 3.9 mmol/L (3.5-5.1)
[2023-02-22 15:34] LABS: CALCIUM 9.7 mg/dL (8.5-10.1)
[2023-02-22 15:35] LABS: ALBUMIN 3.5 g/dl (3.4-5.0); BLOOD UREA NITROGEN 16.9 mg/dL (7-18)
[2023-02-22 15:38] LABS: CREATININE 1.5 mg/dL (0.55-1.3)
[2023-02-22 15:39] LABS: BILIRUBIN,TOTAL 0.4 mg/dL (0.2-1); TOT PROT 7.5 g/dl (6.4-8.2)
[2023-02-22] MEDS ORDERED: morphine CARPU-JECT 4 MG/1 ML DISP.SYRIN IVPUSH ONE (16:09)
[2023-02-22] MEDS ORDERED: LACTATED RINGERS SOLUTION 1000 ML INFUS.BAG IV ONE (16:16)
[2023-02-22] MEDS ORDERED: ONDANSETRON 4 MG/2 ML VIAL IVPUSH ONE (16:30)
[2023-02-22] MEDS ORDERED: morphine SULFATE 4 MG/ML VIAL ONE (16:31)
[2023-02-22] MEDS ORDERED: ONDANSETRON 4 MG/2 ML VIAL ONE (16:35)
[2023-02-22] MEDS ORDERED: BENZOCAINE/MENTH/CETYLPYRD CL 1 EACH LOZENGE MM ONE (16:54)
[2023-02-22] MEDS ORDERED: LACTATED RINGERS SOLUTION 1,000 ML IV STA (17:38)
[2023-02-22] MEDS ORDERED: ALBUTEROL SO4 0.083% IH SOL 2.5 MG/3 ML VIAL.NEB. NEB PRN (17:46)
[2023-02-22] MEDS ORDERED: HYDROmorphone HCl 2 MG/ML VIAL ONE ×2 (17:53→22:20)
[2023-02-22] MEDS ORDERED: ACETAMINOPHEN 1000 MG/100 ML BAG IVPB PRN ×2 (17:54→21:00)
[2023-02-22] MEDS: HYDROmorphone HCl 2 MG/ML VIAL IVPUSH PRN ×2 (17:55→23:01)
[2023-02-22] MEDS ORDERED: POLYETHYLENE GLYCOL (HEALTHYLAX) 3350 17 GM PACKET PO PRN (17:56)
[2023-02-22 21:18] VITALS: RESP 18
[2023-02-22] MEDS ORDERED: BICTEGRAV/EMTRICIT/TENOFOV (BIKTARVY) 50-200-25 MG TABLET PO SCH (22:00)
[2023-02-22] MEDS ORDERED: INSULIN (LEVEMIR) 100 UNITS/ML UNITS SQ SCH (22:00)
[2023-02-22] MEDS ORDERED: ATORVASTATIN CA 40 MG TABLET (FP) ONE (22:13)
[2023-02-22] MEDS ORDERED: CLOPIDOGREL BISULFATE 75 MG TABLET (FP) ONE (22:13)
[2023-02-22] MEDS: ATORVASTATIN CA 40 MG TABLET (FP) PO SCH (22:25)
[2023-02-22] MEDS: traZODone HCL 100 MG TABLET (FP) PO SCH (22:25)
[2023-02-22] MEDS: INSULIN (LEVEMIR) 100 UNITS/ML UNITS SQ SCH (22:25)
[2023-02-22] MEDS: LACTATED RINGERS SOLUTION 1,000 ML IV SCH (22:25)
[2023-02-22] MEDS: DOXEPIN HCL 25 MG CAPSULE PO SCH (22:25)
[2023-02-22] MEDS: CLOPIDOGREL BISULFATE 75 MG TABLET (FP) PO SCH (22:25)
[2023-02-22] MEDS: INSULIN SLIDING SCALE (NOVOLOG) 1 VIAL SQ SCH (22:26)
[2023-02-23 01:49] VITALS: BMI 28.9
[2023-02-23 04:10] LABS: POTASSIUM 3.3 mmol/L (3.5-5.1)
[2023-02-23 04:12] LABS: CALCIUM 8.7 mg/dL (8.5-10.1)
[2023-02-23 04:16] LABS: CREATININE 2.1 mg/dL (0.55-1.3)
[2023-02-23] MEDS: LACTATED RINGERS SOLUTION 1,000 ML IV SCH (06:05)
[2023-02-23 08:35] LABS: BASO % 0.2 % (0-2.0); EOS % 0.1 % (0-4.5); HEMATOCRIT 34.9 % (32.4-45.2); HEMOGLOBIN 10.8 GM/dL (10.7-15.3); LYMPH % 8.8 % (8-40); MCH 23.5 pg (25.7-33.7); MEAN CELL VOLUME 75.8 fl (80-96); MEAN PLT VOLUME 11.1 fl (7.5-11.1); MONO % 6.7 % (3.8-10.2); NEUT % 84.2 % (42.8-82.8); PLATELET COUNT 125 10^3/uL (134-434); WHITE BLOOD COUNT 7.8 K/mm3 (4.0-10.0)
[2023-02-23] MEDS: INSULIN SLIDING SCALE (NOVOLOG) 1 VIAL SQ SCH ×4 (08:40→21:26)
[2023-02-23] MEDS ORDERED: HYDROmorphone HCl 2 MG/ML VIAL IVPB PRN (08:48)
[2023-02-23 08:52] LABS: POTASSIUM 3.4 mmol/L (3.5-5.1)
[2023-02-23 08:55] LABS: BLOOD UREA NITROGEN 20.2 mg/dL (7-18); CALCIUM 8.6 mg/dL (8.5-10.1)
[2023-02-23 08:58] LABS: CREATININE 2.1 mg/dL (0.55-1.3); PHOSPHOROUS 4.9 mg/dL (2.5-4.9)
[2023-02-23 08:59] LABS: BILIRUBIN,TOTAL 0.4 mg/dL (0.2-1); TOT PROT 5.8 g/dl (6.4-8.2)
[2023-02-23 09:02] LABS: ALBUMIN 2.7 g/dl (3.4-5.0)
[2023-02-23] MEDS: KCL 10 MEQ IVPB 10 MEQ/100 ML INFUS.BAG IVPB SCH ×3 (09:48→14:49)
[2023-02-23] MEDS: INSULIN (LEVEMIR) 100 UNITS/ML UNITS SQ SCH ×2 (09:49→21:28)
[2023-02-23] MEDS ORDERED: POTASSIUM CHLORIDE 20 MEQ in LACTATED RINGERS SOLUTION 1,000 ML IV ONE (14:31)
[2023-02-23] MEDS: HYDROmorphone HCl 2 MG/ML VIAL IVPB PRN (17:16)
[2023-02-23] MEDS ORDERED: RIVAROXABAN 20 MG TABLET PO SCH (18:00)
[2023-02-23] MEDS: traZODone HCL 100 MG TABLET (FP) PO SCH (21:27)
[2023-02-23] MEDS: DOXEPIN HCL 25 MG CAPSULE PO SCH (21:27)
[2023-02-23] MEDS: CLOPIDOGREL BISULFATE 75 MG TABLET (FP) PO SCH (21:27)
[2023-02-23] MEDS: ATORVASTATIN CA 40 MG TABLET (FP) PO SCH (21:27)
[2023-02-23] MEDS: ACETAMINOPHEN 1000 MG/100 ML BAG IVPB PRN (23:11)
[2023-02-24] MEDS: HYDROmorphone HCl 2 MG/ML VIAL IVPB PRN ×3 (04:13→15:37)
[2023-02-24] MEDS: INSULIN SLIDING SCALE (NOVOLOG) 1 VIAL SQ SCH ×3 (06:03→16:38)
[2023-02-24] MEDS: ACETAMINOPHEN 1000 MG/100 ML BAG IVPB PRN ×2 (07:50→15:41)
[2023-02-24 09:08] LABS: BASO % 0.2 % (0-2.0); EOS % 1.4 % (0-4.5); HEMATOCRIT 30.3 % (32.4-45.2); HEMOGLOBIN 9.3 GM/dL (10.7-15.3); LYMPH % 10.4 % (8-40); MCH 23.2 pg (25.7-33.7); MCHC 30.8 g/dl (32.0-36.0); MEAN CELL VOLUME 75.6 fl (80-96); MEAN PLT VOLUME 10.8 fl (7.5-11.1); MONO % 5.6 % (3.8-10.2); NEUT % 82.4 % (42.8-82.8); PLATELET COUNT 113 10^3/uL (134-434); RBC 4.01 M/mm3 (3.60-5.2); RDW 18.5 % (11.6-15.6); WHITE BLOOD COUNT 7.7 K/mm3 (4.0-10.0)
[2023-02-24 09:37] LABS: POTASSIUM 3.3 mmol/L (3.5-5.1)
[2023-02-24 09:40] LABS: CALCIUM 8.1 mg/dL (8.5-10.1)
[2023-02-24 09:41] LABS: ALBUMIN 2.3 g/dl (3.4-5.0); BLOOD UREA NITROGEN 21.4 mg/dL (7-18)
[2023-02-24 09:44] LABS: BILIRUBIN,TOTAL 0.5 mg/dL (0.2-1); CREATININE 1.5 mg/dL (0.55-1.3); TOT PROT 5.4 g/dl (6.4-8.2)
[2023-02-24] MEDS ORDERED: diphenhydrAMINE HCL 25 MG CAPSULE (FP) PO PRN (10:05)
[2023-02-24] MEDS ORDERED: LACTATED RINGERS SOLUTION 1,000 ML/1,000 ML INFUS.BAG IV SCH (10:30)
[2023-02-24] MEDS: INSULIN (LEVEMIR) 100 UNITS/ML UNITS SQ SCH ×3 (10:49→16:37)
[2023-02-24] MEDS ORDERED: INSULIN (LEVEMIR) 100 UNITS/ML UNITS SQ ONE ×2 (11:04→17:02)
[2023-02-24] MEDS ORDERED: INSULIN (NOVOLOG) ASPART 100 UNITS/ML 10ML VIAL ONE (11:04)
[2023-02-24 13:46] VITALS: BP 96/66; PULSE 100; TEMP 99.1
[2023-02-24] MEDS ORDERED: ALPRAZolam 0.25 MG TABLET PO STA (16:19)
== END 2023-02-24 17:05 | disposition left against medical advice (07) | DRG 439 ==
LOC: JER 13:19 → JERBED 16:09 → J7W 02-23 00:32
PROVIDERS: ADMIT Internal Medicine; ATTEND Internal Medicine
DX: K85.90 Acute pancreatitis without necrosis or infection, unspecified (principal); G82.20 Paraplegia, unspecified; N17.9 Acute kidney failure, unspecified; E11.51 Type 2 diabetes mellitus with diabetic peripheral angiopathy without gangrene; E11.65 Type 2 diabetes mellitus with hyperglycemia; Z21 Asymptomatic human immunodeficiency virus [HIV] infection status; N18.9 Chronic kidney disease, unspecified; E11.22 Type 2 diabetes mellitus with diabetic chronic kidney disease; I25.10 Atherosclerotic heart disease of native coronary artery without angina pectoris; Z95.5 Presence of coronary angioplasty implant and graft; E78.5 Hyperlipidemia, unspecified; E87.6 Hypokalemia
CPT/HCPCS: 0241U-QW; 36415; 74176-TC; 80048; 80053; 80061; 82962; 83036; 83690; 83735; 84100; 84484; 85025; 93005; 93010; 99285-25